=== PATIENT | female | born 1950 | race Caucasian/White ===

== ENCOUNTER 2023-10-15 11:38 | Outpatient (CLI) | payer MEDICARE, SELFPAY ==
[2023-10-15 12:07] LABS: Basophils Absolute Auto 0.1 K/mm3 (0.0-0.1); Basophils Percent Auto 0.5 % (0.2-1.2); Eosinophils Absolute Auto 0.2 K/mm3 (0-0.3); Hemoglobin 11.2 g/dL (12.0-15.0); Immature Granulocyte Absolute 0.05 K/mm3 (0.00-0.031); Immature Granulocyte Percent A 0.4 % (0-0.5); Lymphocytes Absolute Auto 1.31 K/mm3 (0.9-3.2); Lymphocytes Percent Auto 11.6 % (18.3-44.2); Mean Corpuscular HGB Conc 32.9 g/dl (32-36); Mean Corpuscular Hemoglobin 27.1 pg (26-34); Mean Corpuscular Volume 82.3 fl (80-100); Mean Platelet Volume 9.7 fl (7.4-10.4); Monocytes Percent Auto 8.7 % (2.6-8.5); Neutrophils Absolute Auto 8.6 K/mm3 (1.3-6.7); Neutrophils Percent Auto 76.8 % (45.5-73.1); Platelet Count Result 395 k/mm3 (150-375); Red Blood Count 4.13 M/mm3 (4.2-5.4); Red Cell Distribution Width 14.1 % (11.5-14.5); White Blood Count 11.3 K/mm3 (4.5-10.0)
[2023-10-15 12:20] LABS: Anisocytosis 1+ (NORMAL); Schistocytes None Seen (NORMAL)
[2023-10-15 12:21] LABS: Hypochromasia 1+ (NORMAL)
[2023-10-15 12:35] LABS: CRP 16.3 mg/dL (<1.0)
[2023-10-15 12:45] LABS: Erythrocyte Sedimentation Rate 86 mm/hr (0-20)
== END 2023-10-15 11:39 | disposition home or self-care (01) ==
LOC: ANHLAB 11:40
PROVIDERS: PCP Internal Medicine Infectious Disease; Visit Provider Physician Assistant Surgical
DX: M25.461 Effusion, right knee (principal)
CPT/HCPCS: 36415; 85025; 85652; 86140

== ENCOUNTER 2024-01-28 10:24 | Outpatient (CLI) | payer MEDICARE, SELFPAY ==
--- NOTE | ~2024-01-28 | XR_ITS ---
Right Knee Technique: AP, lateral, and sunrise views were obtained. Clinical History: Osteoarthritis Findings: No fracture or dislocation is seen. Osseous alignment is anatomic. Joint spaces are preserv ed without degenerative or erosive change. Small to moderate joint effusion is seen. Impression: [id number] joint effusion, nonspecific. Reviewed, dictated and finalized at location . Impression: [id number] joint effusion, nonspecific.
== END 2024-01-28 10:25 | disposition home or self-care (01) ==
LOC: ANHIMG 10:31
PROVIDERS: PCP Internal Medicine Infectious Disease; Visit Provider Orthopaedic Surgery
DX: M25.461 Effusion, right knee (principal); M17.11 Unilateral primary osteoarthritis, right knee
CPT/HCPCS: 73564

== ENCOUNTER 2024-01-29 11:27 | Outpatient (CLI) | payer MEDICARE, SELFPAY ==
--- NOTE | 2024-01-29 11:45 | ECG_ITS ---
SEE SCANNED COPY FOR CONFIRMED REPORT MTDD
[2024-01-29 12:50] LABS: Anion Gap 10 mmol/L (4-12); Blood Urea Nitrogen 14 mg/dL (7-17); Calcium 9.3 mg/dL (8.4-10.2); Carbon Dioxide 28 mmol/L (22-30); Chloride 89 mmol/L (98-107); Estimated Glomerular Filt Rate > 60; Glucose 149 mg/dL (65-110); Potassium 3.4 mmol/L (3.4-5.0); Sodium 127 mmol/L (137-145)
== END 2024-01-29 11:28 | disposition home or self-care (01) ==
PROVIDERS: Anesthesiology; PCP Internal Medicine Infectious Disease; Visit Provider Orthopaedic Surgery
DX: I10 Essential (primary) hypertension (principal); Z79.899 Other long term (current) drug therapy; Z01.818 Encounter for other preprocedural examination
CPT/HCPCS: 36415; 80048; 93005

== ENCOUNTER 2024-02-02 02:39 | Day surgery (SDC) | payer MEDICARE, SELFPAY ==
[2024-01-28 15:19] VITALS: BMI 30.2
--- NOTE | 2024-01-28 15:29 | PC.NURSE ---
PRE-OP INSTRUCTIONS, PLEASE READ CAREFULLY Report to the Outpatient Waiting Room, entrance under the green pavilion located off [facility], at time _1 PM_ on date _02/02/24_. Planned Procedure Time: _3 PM_. Time changes happen often and if your time is changed the preop area will call you the afternoon before. - You and your visitor will be asked to self-screen and do not enter if you have any COVID symptoms. - A mask is optional within the hospital at this time. Patients may have clear liquids (water, carbonated beverages, clear teas, apple juice) until 3 hours prior to surgery (1200 NOON) with a maximum of 20 ounces. - No food from midnight until time of surgery Take the following medications with a SIP of water the morning of surgery: _AMIODARONE, GABAPENTIN, HYDRALAZINE, LEVOTHYROXINE, METOPROLOL_ DO NOT STOP ANY OF YOUR OTHER PRESCRIPTION MEDICATIONS PRIOR TO SURGERY ?EXCEPT THE FOLLOWING Medications to discontinue - _XARELTO INSTRUCTED BY DR. KIRKLAND_ Please no make-up, nail latvian, hairspray, perfume, deodorant, or body powder the day of surgery. No jewelry (including any body piercings) or valuables the day of surgery, leave them at home. Please take a shower or bath the night before, or the morning of, surgery with an antibacterial soap. Wear comfortable, loose fitting clothing. - Jewelry must be removed prior to entering the operating room. Rings and piercings that are not removed may be cut off. - The hospital will not accept responsibility for valuables. - Please leave all valuables, including medications, at home the day of surgery. If you are going home after surgery, a licensed hyster driver must drive you home. - NO public transportation without another adult if you receive anesthesia. - We recommend that an adult stay with you for 24 hours following discharge. - We also recommend that you do not drive, make important decision, drink alcoholic beverages, or take any drugs that were not prescribed by your health care provider for at least 24 hours after your discharge time. Follow any additional instructions given to you from your surgeon. If you or anyone in your household have experienced Covid symptoms in the past week, please notify your surgeon or the nurse liaison at the phone number below for possible testing. Telephone instructions given to _PATIENT_and asked if any additional questions and then verbalized understanding. Patient advised to call surgeon office or pre surgery nurse liaison [phone] if any additional questions.
[2024-02-02 13:30] VITALS: BP 140/106; PULSE 70; RESP 16; TEMP 37.5; O2SAT 100
[2024-02-02] MEDS: LACTATED RINGERS 1,000 ML 30 ML IV CONT (13:45)
--- NOTE | 2024-02-02 14:01 | WPDANESEPPF ---
Anes - Initial Pre Proc Eval Procedure: Operation Date: 02/02/24 15:00 Proposed Procedures p Right Knee Arthroscopy with Synovectomy - El Vo MD Date/Time: 02/02/24 14:01 Surgeon: El Vo MD Pre Op Diagnosis: right knee knee hemarthrosis Patient Data Age: 73 Gender: F Height: 1.68 m Weight: 85 kg Allergies Allergy/AdvReac Type Severity Reaction Status Date / Time Sulfa (Sulfonamide Allergy Severe ITCHING, Verified 01/28/24 15:14 Antibiotics) TONGUE SWELLING docosahexaenoic acid Allergy Unknown Unknown-UNABLE Verified 01/28/24 15:14 TO RECALL fish oil Allergy Unknown Swelling Verified 01/28/24 15:14 SHELLFISH Allergy Intermediate N/V Uncoded 01/28/24 15:14 EICOSAPENTAENOIC ACID Allergy Unknown Unknown-UNABLE Uncoded 01/28/24 15:14 TO RECALL OMEGA-3 FATTY ACIDS Allergy Unknown Swelling Uncoded 01/28/24 15:14 VITAMIN E Allergy Unknown Unknown-UNABLE Uncoded 01/28/24 15:14 TO RECALL Home Medications Medication Instructions Recorded Confirmed Type ascorbate calcium (vitamin C) 500 500 mg PO DAILY 09/26/23 01/28/24 History mg tablet ezetimibe 10 mg tablet 10 mg PO DAILY 09/26/23 01/28/24 History furosemide 40 mg tablet 40 mg PO QAM 09/26/23 01/28/24 History gabapentin 100 mg capsule 100 mg PO BID 09/26/23 01/28/24 History hydralazine 100 mg tablet 100 mg PO TID 09/26/23 01/28/24 History levothyroxine 200 mcg capsule 200 mcg PO DAILY 09/26/23 01/28/24 History metoprolol succinate 25 mg 12.5 mg PO DAILY 09/26/23 01/28/24 History tablet,extended release 24 hr oxybutynin chloride 5 mg tablet 5 mg PO BID 09/26/23 01/28/24 History potassium chloride 10 mEq oral 10 meq PO DAILY 09/26/23 01/28/24 History packet rivaroxaban 20 mg tablet (Xarelto) 20 mg PO DAILY 09/26/23 01/28/24 History valsartan 320 1 tablet PO DAILY 09/26/23 01/28/24 History mg-hydrochlorothiazide 25 mg tablet amiodarone 200 mg tablet 100 mg PO DAILY 10/15/23 01/28/24 History esomeprazole magnesium 40 mg 40 mg PO BID 10/15/23 01/28/24 History capsule,delayed release cholecalciferol (vitamin D3) 25 25 mcg PO DAILY 01/28/24 01/28/24 History mcg (1,000 unit) tablet magnesium 1 tab-cap DAILY 01/28/24 01/28/24 History hydrocodone 5 mg-acetaminophen 325 1 - 2 tablet PO Q4-6H PRN pain #30 02/02/24 Rx mg tablet tabs Patient hx anesthesia problems: none Family hx anesthesia problems: none Results Review: All pre-operative results and documents have been reviewed as part of the pre-operative evaluation. [facility] Past Medical History Medical History A-fib Congestive heart disease History of stress test Hypertension Sleep apnea Surgical History Surgical History History of cholecystectomy History of hysterectomy History of thyroidectomy Family History Family History Mother Diabetes mellitus Father Heart disease Social History Social History Smoking status: Never smoker Second hand tobacco smoke exposure: No Alcohol intake: never Substance use: never Substance use type: does not use Lack of Transportation: No Lack of Food: Never True Current Housing: I Have Housing Concerned About Future Housing: No Difficulty Paying Gas/Electric Bills: No Difficulty Paying for Meds: No Currently Unemployed: No Education: High School Diploma/GED Difficulty w/ Childcare or Family Care: No Living arrangements: with family Spiritual care concerns: No Anes - Eval Final PreProcedure Day of Procedure 02/02/24 14:01 Patient weight: obese Heart: regular rate and rhythm Lungs: clear to auscultation Airway: Mallampati scale and special considerations (Upper caps. ) Neurological: alert and oriented Last oral intake
[2024-02-02] MEDS: KETOROLAC 15 MG/ML VIAL (*BKC) IV PUSH (14:07)
[2024-02-02] MEDS: ACETAMINOPHEN 500 MG TABLET 1000 MG PO (14:07)
[2024-02-02 14:15] LABS: Sodium 125 mmol/L (137-145)
--- NOTE | 2024-02-02 14:59 | WPDHPUPDATE1 ---
History and Physical Update Update Date/Time: 02/02/24 14:59 History and Physical has been reviewed, including an updated exam of the patient. There are NO changes in the patient's condition. Risks, benefits, and alternatives have been discussed and questions answered. Patient agrees to proceed with procedure.
--- NOTE | 2024-02-02 15:39 | SUR.PREOP ---
PT PREOP SODIUM LEVEL 2.5 TODAY. PAT NA LEVEL 127. PER PT'S PMD MABEL MULLINS OFFICE AT [facility], THIS IS THE LOWEST VALUE FOR PT OVER LAST YEAR THOUGH PT TENDS TO RUN SLIGHTLY BELOW NORMAL, WITH VALUES FAXED TO US OF 131 ON 10/29/23; 128 ON 10/15/23 AND 134 IN . SPOKE W/ DR. CALDERON IN PERSON AND DR. KIRKLAND VIA PHONE. SINCE PT TRENDING LOW WITHOUT ANY INTERVENTION; DECISION TO CANCEL TODAY AND HAVE PT F/U PMD FOR FURTHER EVAL/MNGMNT. DR. CALDERON SPOKE W/ PT AND HER FAMILY. GABRIELA DR. KIRKLAND PA SPOKE W/ PT AND DOING DC ORDERS. DR. KIRKLAND WILL PERFORM NEEDLE ASPIRATION IN PREOP BEFORE DC.
--- NOTE | 2024-02-02 16:08 | PM.OP ---
Procedure Note - Brief Procedure Note - Brief Date of procedure: 02/02/24 right knee knee hemarthrosis Post-op diagnosis: Same Procedure performed: Aspiration right knee in the preop holding room. Surgeon: El Vo MD Anesthesia: local (3mL 1 %Lidocaine) Findings: Surgical synovectomy cancelled due to hyponatremia, (125). Description of procedure: The wound was prepped with chlorhexidine and Betadine. 3ML local anesthetic administered. Aspiration performed through a superolateral approach. Steril gauze dressing with compressive bandage applied. 25ML sanguinous fluid obtained. Complications: No immediate complications Condition: Stable Disposition: Same day
--- NOTE | 2024-02-02 16:08 | SUR.PREOP ---
MALIK AT DR. MABEL PISANO OFFICE MADE AWARE SURGERY CANCELLED TODAY PT TO F/U FOR MANAGEMENT. PT JT ASPIRATION WELL. DC PAPERS GIVEN.
== END 2024-02-02 16:30 | disposition home or self-care (01) ==
PROVIDERS: Anesthesiology; PCP Internal Medicine Infectious Disease; Visit Provider Orthopaedic Surgery
PROC: (CPT 29870; principal; 2024-02-02 15:00)
DX: M25.061 Hemarthrosis, right knee (principal); R79.89 Other specified abnormal findings of blood chemistry; E87.1 Hypo-osmolality and hyponatremia; I48.91 Unspecified atrial fibrillation; I11.0 Hypertensive heart disease with heart failure; I50.9 Heart failure, unspecified; G47.30 Sleep apnea, unspecified; E66.9 Obesity, unspecified; Z68.29 Body mass index [BMI] 29.0-29.9, adult; Z79.01 Long term (current) use of anticoagulants; Z79.891 Long term (current) use of opiate analgesic; Z98.890 Other specified postprocedural states; Z90.49 Acquired absence of other specified parts of digestive tract; Z82.49 Family history of ischemic heart disease and other diseases of the circulatory system; Z53.09 Procedure and treatment not carried out because of other contraindication
CPT/HCPCS: 36415; 80048; 84295; 93005; 99211; A9270; G0463; J1885; J2250; J3010; J7120

== ENCOUNTER 2024-03-22 12:26 | Outpatient (CLI) | payer MEDICARE, SELFPAY ==
--- NOTE | ~2024-03-22 | MR_ITS ---
MRI of the right knee Clinical history: Osteoarthritis Technique: Coronal proton density and proton density-weighted images, sagittal proton-density and T2 fat-sat images, and axial proton-density fat-saturated images were acquired. Findings: Anterior and posterior cruciate ligaments are intact. Medial collateral ligament and the la teral collateral ligament complex are intact. Popliteus tendon is intact. There is prominent intrasubstance degenerative signal of the medial meniscus without definite tear. T here is horizontal tear probably involving the posterior horn of the lateral meniscus. There is extensive grade 4 chondral fissure patella, as well as extensive moderate to high-grade scooter dral malacia the femoral trochlea inferiorly. There is patchy mild to moderate chondral malacia of th e medial and lateral compartments. Minimal tricompartmental osteophytes are present. Extensor mechanism is intact. Small joint effusion present. Small Scott's cyst. Impression: Extensive high-grade chondral lesion of the patellofemoral compartment. Mild to moderate chondromalac ia in the medial and lateral compartments. Horizontal tear of the posterior horn of the lateral masses. Small joint effusion and small Scott's cyst. Reviewed, dictated and finalized at location . Impression: Extensive high-grade chondral lesion of the patellofemoral compartment. Mild to moderate chondromalacia in the medial and lateral compartments. Horizontal tear of the posterior horn of the lateral masses. Small joint effusion and small Scott's cyst.
== END 2024-03-22 12:27 | disposition home or self-care (01) ==
PROVIDERS: PCP Internal Medicine Infectious Disease; Visit Provider Orthopaedic Surgery
DX: M17.11 Unilateral primary osteoarthritis, right knee (principal); M25.061 Hemarthrosis, right knee; M25.461 Effusion, right knee; M94.261 Chondromalacia, right knee; M23.351 Other meniscus derangements, posterior horn of lateral meniscus, right knee; M71.21 Synovial cyst of popliteal space [Baker], right knee
CPT/HCPCS: 73721

== ENCOUNTER 2024-05-06 11:26 | Outpatient (CLI) | payer MEDICARE, SELFPAY ==
[2024-05-06 12:23] LABS: Anion Gap 8 mmol/L (4-12); Blood Urea Nitrogen 13 mg/dL (7-17); Calcium 8.4 mg/dL (8.4-10.2); Carbon Dioxide 28 mmol/L (22-30); Chloride 98 mmol/L (98-107); Estimated Glomerular Filt Rate > 60; Glucose 105 mg/dL (65-110); Potassium 4.3 mmol/L (3.4-5.0); Sodium 134 mmol/L (137-145)
== END 2024-05-06 11:27 | disposition home or self-care (01) ==
LOC: ANHSURGERY 11:31
PROVIDERS: Anesthesiology; PCP Internal Medicine Infectious Disease; Visit Provider Orthopaedic Surgery
DX: Z01.818 Encounter for other preprocedural examination (principal); Z79.899 Other long term (current) drug therapy
CPT/HCPCS: 36415; 80048

== ENCOUNTER 2024-05-10 00:38 | Day surgery (SDC) | payer MEDICARE, SELFPAY ==
[2024-05-04 13:18] VITALS: BMI 29.9
--- NOTE | 2024-05-04 13:19 | PC.NURSE ---
Report to the Outpatient Waiting Room, entrance under the green pavilion located off [facility], at time _1pm_ on date _[id number]_. Planned Procedure Time: _3pm_. Time changes happen often and if your time is changed the preop area will call you the afternoon before. - You and your visitor will be asked to self-screen and do not enter if you have any COVID symptoms. - A mask is optional within the hospital at this time. Patients may have clear liquids (water, carbonated beverages, clear teas, apple juice) until 3 hours prior to surgery with a maximum of 20 ounces. - No food from midnight until time of surgery Take the following medications with a SIP of water the morning of surgery: __Amiodarone, Hydralazine, Levothyroxine and Metoprolol DO NOT STOP ANY OF YOUR OTHER PRESCRIPTION MEDICATIONS PRIOR TO SURGERY ?EXCEPT THE FOLLOWING Medications to discontinue per physician Vitamin d and Magnesium Date to take last jpma____[id number] Stop Xarelto 05-07-[address] Tena Please no make-up, nail kazakh, hairspray, perfume, deodorant, or body powder the day of surgery. No jewelry (including any body piercings) or valuables the day of surgery, leave them at home. Please take a shower or bath the night before, or the morning of, surgery with an antibacterial soap. Wear comfortable, loose fitting clothing. - Jewelry must be removed prior to entering the operating room. Rings and piercings that are not removed may be cut off. - The hospital will not accept responsibility for valuables. - Please leave all valuables, including medications, at home the day of surgery. If you are going home after surgery, a licensed guard driver must drive you home. - NO public transportation without another adult if you receive anesthesia. - We recommend that an adult stay with you for 24 hours following discharge. - We also recommend that you do not drive, make important decision, drink alcoholic beverages, or take any drugs that were not prescribed by your health care provider for at least 24 hours after your discharge time. Follow any additional instructions given to you from your surgeon. If you or anyone in your household have experienced Covid symptoms in the past week, please notify your surgeon or the nurse liaison at the phone number below for possible testing. Telephone instructions given to ___Joy__and asked if any additional questions and then verbalized understanding. Patient advised to call surgeon office or pre surgery nurse liaison [phone] if any additional questions.
[2024-05-10] VITALS (8 sets, daily range): BP systolic 139–149; BP diastolic 58–94; PULSE 53–81; RESP 12–18; TEMP 36.4–36.7; O2SAT 97–100; BMI 30.2
[2024-05-10] MEDS: LACTATED RINGERS 1,000 ML 30 ML IV CONT (13:43)
[2024-05-10] MEDS: ACETAMINOPHEN 500 MG TABLET 1000 MG PO (13:55)
[2024-05-10] MEDS: KETOROLAC 15 MG/ML VIAL (*BKC) IV PUSH (13:55)
--- NOTE | 2024-05-10 14:46 | PM.IMHP ---
H&P: HPI History of Present Illness Date/Time: 05/10/24 14:46 Chief Complaint: Right knee pain Details: Persistent knee pain lateral and posterior medial. Original complaint: 73-year-old female with persistent right knee pain. Recurrent hemarthrosis and swelling. She has pain in the back of the knee and on the lateral aspect of the knee. She was scheduled for surgery but this was canceled due to low sodium. She is on Xarelto 20 mg daily. 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 Her sodium levels have been stable. Treatments: Medications: Tylenol with some benefit. Injections: Yes. Over 5 years ago. PT: No Previous surgeries on knee: No PMH: CHF, Is on blood thinners, HTN, A.fib. Exam: Alert and oriented x3. Overweight 73 y/o female. Mild valgus deformity on the right knee. Tender at the lateral joint line. Pain with hyperflexion. Equivocal Yuliana's test. No distal edema. No ecchymosis. Large joint effusion. Mild warmth. No erythema. Diffuse tenderness. Range of motion 0? to 120?. Pain with motion. Distal pulses palpable. Normal light touch sensation. No skin lesions. Left knee mild varus deformity. Exquisite tenderness at the medial joint line. Diagnostics: Recent x-rays reviewed show moderate patellofemoral arthritis. Mild lateral changes. MRI 03/22/24 shows tearing of the lateral meniscus. Signal change in the notch may be displaced meniscal fragments. The medial meniscus has significant degenerative signal. She has [id number] chondromalacia in the medial and lateral compartments although the joint space is well preserved. More significant grade 4 disease at the patellofemoral joint. Impression Recurrent heme arthrosis and pain in the right knee. Significant mechanical symptoms. The MRI shows a lateral meniscus tear which may be the primary cause of her symptoms. We had a ronald discussion about treatment options. Knee replacement carries more risk and her medial and lateral compartments are fairly well preserved. We discussed operative and non-operative options in detail. We reviewed the expected results and typical recovery after surgery. Proceed with arthroscopic partial lateral meniscectomy. The patient understands the limitations given the degenerative changes in the knee. Risks, benefits, and alternatives discussed. [facility] Past Medical History Medical History A-fib Congestive heart disease History of stress test Hypertension Sleep apnea Surgical History Surgical History History of cholecystectomy History of hysterectomy History of thyroidectomy Family History Family History Mother Diabetes mellitus Father Heart disease Social History Social History Smoking status: Never smoker Second hand tobacco smoke exposure: No Alcohol intake: current Substance use: never Substance use type: does not use Lack of Transportation: No Lack of Food: Never True Current Housing: I Have Housing Concerned About Future Housing: No Difficulty Paying Gas/Electric Bills: No Difficulty Paying for Meds: No Currently Unemployed: No Education: High School Diploma/GED Difficulty w/ Childcare or Family Care: No Living arrangements: with family Spiritual care concerns: No Meds Home Medications and Allergies Home Medications Medication Instructions Recorded Confirmed Type ezetimibe 10 mg tablet 10 mg PO DAILY 09/26/23 05/04/24 History furosemide 40 mg tablet 40 mg PO QAM 09/26/23 05/04/24 History gabapentin 100 mg capsule 100 mg PO BID 09/26/23 05/04/24 History hydralazine 100 mg tablet 100 mg PO TID 09/26/23 05/10/24 History levothyroxine 200 mcg capsule 200 mcg PO DAILY 09/26/23 05/10/24 History metoprolol succinate 25 mg 12.5 mg PO
--- NOTE | 2024-05-10 14:47 | WPDANESEPPF ---
Anes - Initial Pre Proc Eval Procedure: Operation Date: 05/10/24 15:00 Proposed Procedures p Right Knee Arthroscopic Partial Lateral Meniscectomy - El Vo MD Date/Time: 05/10/24 14:47 Surgeon: El Vo MD Pre Op Diagnosis: lateral meniscus tear right knee Patient Data Age: 73 Gender: F Height: 1.68 m Weight: 85.15 kg Last Vital Signs Temp 36.4 C 05/10/24 13:10 Pulse 81 05/10/24 13:10 Resp 16 05/10/24 13:10 BP 146/69 H 05/10/24 13:10 Pulse Ox 99 05/10/24 13:10 O2 Del Method Room Air 05/10/24 13:10 Allergies Allergy/AdvReac Type Severity Reaction Status Date / Time Sulfa (Sulfonamide Allergy Severe ITCHING, Verified 05/10/24 14:00 Antibiotics) TONGUE SWELLING SHELLFISH Allergy Intermediate N/V Uncoded 05/10/24 14:19 OMEGA-3 FATTY ACIDS Allergy Unknown Swelling Uncoded 05/10/24 14:19 Home Medications Medication Instructions Recorded Confirmed Type ezetimibe 10 mg tablet 10 mg PO DAILY 09/26/23 05/04/24 History furosemide 40 mg tablet 40 mg PO QAM 09/26/23 05/04/24 History gabapentin 100 mg capsule 100 mg PO BID 09/26/23 05/04/24 History hydralazine 100 mg tablet 100 mg PO TID 09/26/23 05/10/24 History levothyroxine 200 mcg capsule 200 mcg PO DAILY 09/26/23 05/10/24 History metoprolol succinate 25 mg 12.5 mg PO DAILY 09/26/23 05/10/24 History tablet,extended release 24 hr oxybutynin chloride 5 mg tablet 5 mg PO BID 09/26/23 05/04/24 History rivaroxaban 20 mg tablet (Xarelto) 20 mg PO DAILY 09/26/23 05/10/24 History esomeprazole magnesium 40 mg 40 mg PO BID 10/15/23 05/04/24 History capsule,delayed release cholecalciferol (vitamin D3) 25 25 mcg PO DAILY 01/28/24 05/10/24 History mcg (1,000 unit) tablet magnesium 1 tab-cap PO DAILY 01/28/24 05/04/24 History amiodarone 200 mg tablet 200 mg PO BID 04/07/24 05/10/24 History potassium chloride 20 mEq 20 meq PO DAILY 05/04/24 05/04/24 History tablet,extended release valsartan 320 mg tablet 320 mg PO DAILY 05/04/24 05/04/24 History Patient hx anesthesia problems: none Family hx anesthesia problems: none Results Review: All pre-operative results and documents have been reviewed as part of the pre-operative evaluation. PMFSH Past Medical History Medical History A-fib Congestive heart disease History of stress test Hypertension Sleep apnea Surgical History Surgical History History of cholecystectomy History of hysterectomy History of thyroidectomy Family History Family History Mother Diabetes mellitus Father Heart disease Social History Social History Smoking status: Never smoker Second hand tobacco smoke exposure: No Alcohol intake: current Substance use: never Substance use type: does not use Lack of Transportation: No Lack of Food: Never True Current Housing: I Have Housing Concerned About Future Housing: No Difficulty Paying Gas/Electric Bills: No Difficulty Paying for Meds: No Currently Unemployed: No Education: High School Diploma/GED Difficulty w/ Childcare or Family Care: No Living arrangements: with family Spiritual care concerns: No Anes - Eval Final PreProcedure Day of Procedure 05/10/24 14:47 Patient weight: obese Heart: regular rate and rhythm Lungs: clear to auscultation Airway: Mallampati scale class II Neurological: alert and oriented Last oral intake: >/= 8 hours ASA classification: III Emergent: no Anesthetic plan: proceed Anesthesia type and monitoring: general LMA and standard monitoring Results Review: All pre-operative results and documents have been reviewed as part of the pre-operative evaluation. Informed Consent: The patient's anesthetic plan and its attendant risks and benefits were discu
--- NOTE | 2024-05-10 14:48 | WPDHPUPDATE1 ---
History and Physical Update Update Date/Time: 05/10/24 14:48 History and Physical has been reviewed, including an updated exam of the patient. There are NO changes in the patient's condition. Risks, benefits, and alternatives have been discussed and questions answered. Patient agrees to proceed with procedure.
[2024-05-10] MEDS: BUPIVACAINE/EPINEPHRINE 0.5% 10 ML VIAL 20 ML INFILTRATE (15:11)
[2024-05-10] MEDS: ceFAZolin 2 GM/D5W 50 ML 2 GM/50 ML BAG IVPB (15:23)
--- NOTE | 2024-05-10 16:19 | P.OP_ITS ---
Procedure Note - Detailed Date of Procedure 05/10/24 Pre-op Diagnosis 1. Lateral meniscus tear right knee 2. Recurrent hemarthrosis Post-op Diagnosis Same Procedure Performed Arthroscopic partial lateral meniscectomy, right knee. Surgeon El Vo MD Anesthesia General Indications Symptomatic meniscus tear. Recurrent hemarthrosis previously. Findings Significant posterior horn meniscus tear with a horizontal cleavage component. This extended into the more lateral central aspect. Debrided to a stable rim. Medial meniscus showed only mild degeneration without a distinct tear. There was however significant chondromalacia along the medial femoral condyle as well as the lateral femoral condyle. These areas of grade 3 chondromalacia were treated with chondroplasty. Additionally some of fat pad around the patella was debrided due to the history of recurrent hemarthrosis and a moderate proliferative synovitis in this area. Also most notable in anterior medial joint space. There was some hemosiderin staining in the knee. The radiofrequen cy probe was used to cauterize all suspicious areas of synovitis in the superior pouch as well as around the patella, the intercondylar notch, and in the anterior fat pad area. There was no significant bleeding at the conclusion of the procedure. Description of Procedure The patient was identified and the surgical site confirmed and signed in the preoperative holding area. Antibiotics were started per protocol, and the patient was brought to the operative room and transferred to the OR table. A general anesthetic was administered. Supine position with the operative lower extremity position in the leg fiore after placement of a well padded tourniquet. The leg support was lowered and the contralateral limb was supported with a soft bolster. The knee was prepped and draped in the usual sterile fashion. A time-out was performed. The portal sites were marked and infiltrated with 0.5% Marcaine 20 mL. The limb was exsanguinated and the tourniquet inflated to 300 mL Hg. Standard inferolateral and inferomedial portals were established. Inflow was obtained with the saline pump. The camera was introduced. Diagnostic inspection of the joint was accomplished. The meniscus was debrided with the arthroscopic shaver and punches until stable. The tourniquet was released. The radiofrequency probe was used for further d?bridement, and cauterization of areas of synovitis. Gentle chondroplasty was performed on the medial and lateral femoral condyles. The arthroscopic instruments were removed. The tourniquet released and wounds closed with subcutaneous 4-0 Monocryl absorbable suture. Steri strips and a sterile dressing were applied. A light elastic wrap was placed. The patient was extubated and brought to the recovery room in stable condition. Estimated Blood Loss 5 Drains No Complications No immediate complications Condition Stable Disposition [facility] [place] [facility] - Charge Forward: Surgery Billing
[2024-05-10] MEDS: oxyCODONE HCL (*CRX) 5 MG TAB IR PO (17:35)
== END 2024-05-10 18:15 | disposition home or self-care (01) ==
PROVIDERS: PCP Internal Medicine Infectious Disease; Visit Provider Orthopaedic Surgery
PROC: (CPT 29870; principal; 2024-05-10 15:00)
DX: M23.351 Other meniscus derangements, posterior horn of lateral meniscus, right knee (principal); M25.061 Hemarthrosis, right knee; M22.41 Chondromalacia patellae, right knee; M65.861 Other synovitis and tenosynovitis, right lower leg; I48.91 Unspecified atrial fibrillation; I11.0 Hypertensive heart disease with heart failure; I50.9 Heart failure, unspecified; G47.30 Sleep apnea, unspecified; E66.9 Obesity, unspecified; Z68.30 Body mass index [BMI] 30.0-30.9, adult; Z79.01 Long term (current) use of anticoagulants
CPT/HCPCS: 29881; 36415; 80048; A9270; J0690; J1100; J1596; J1885; J2371; J2405; J2704; J3010; J7120

== ENCOUNTER 2024-09-22 13:10 | Outpatient (CLI) | payer MEDICARE, SELFPAY ==
--- NOTE | ~2024-09-22 | XR_ITS ---
XR shoulder LT min 2V Ordering provider: El Vo MD History: . S42.292A - Other displaced fracture of upper end of left ... . Comparison: September 26, 2023 FINDINGS: BONES: No acute fracture or dislocation. Healing fracture in the left proximal humerus is noted. JOINT SPACES: The acromioclavicular joint is normal. The glenohumeral joint is normal. SOFT TISSUES: Normal. IMPRESSION: Healing fracture in the left proximal humerus with no change in alignment. Reviewed, dictated and finalized at location A. HALMIC TECH
== END 2024-09-22 13:11 | disposition home or self-care (01) ==
PROVIDERS: PCP Internal Medicine Infectious Disease; Visit Provider Orthopaedic Surgery
DX: S42.292D Other displaced fracture of upper end of left humerus, subsequent encounter for fracture with routine healing (principal); X58.XXXD Exposure to other specified factors, subsequent encounter
CPT/HCPCS: 73030

== ENCOUNTER 2024-11-15 14:29 | Outpatient (CLI) | payer MEDICARE, SELFPAY ==
[2024-11-15 14:47] LABS: Hematocrit 36.8 % (37.0-47.0); Hemoglobin 12.4 g/dL (12.0-15.0)
--- NOTE | 2024-11-15 14:48 | ECG_ITS ---
Test Date: 2024-11-15 14:58:22 Measurements Intervals [place] Rate: 54 P: 63 [place]: 199 QRS: 3 QRSD: 109 T: 39 QT: 467 QTc: 443 Interpretive Statements SINUS BRADYCARDIA INCOMPLETE RIGHT BUNDLE BRANCH BLOCK [90+ ms QRS DURATION, TERMINAL R IN V1/V2, 40+ ms S IN I/aVL/V4/V5/V6] No previous ECG available for comparison Electronically Signed On 11-15-2024 21:12:03 [employer] by Chalo Vyas M.D.
[2024-11-15 15:08] LABS: Albumin Level 4.4 g/dL (3.5-5.1); Estimated Glomerular Filt Rate > 60
== END 2024-11-15 14:30 | disposition home or self-care (01) ==
PROVIDERS: PCP Internal Medicine Infectious Disease; Visit Provider Orthopaedic Surgery
DX: R00.1 Bradycardia, unspecified (principal); I45.19 Other right bundle-branch block; S42.92XP Fracture of left shoulder girdle, part unspecified, subsequent encounter for fracture with malunion; X58.XXXD Exposure to other specified factors, subsequent encounter
CPT/HCPCS: 36415; 82040; 82565; 85014; 85018; 93005

== ENCOUNTER 2024-12-30 12:46 | Outpatient (CLI) | payer MEDICARE, SELFPAY ==
--- NOTE | ~2024-12-30 | CT_ITS ---
EXAMINATION: CT shoulder LT wo con DATE: 12/30/2024 13:10 INDICATION: Left shoulder osteoarthritis. Preoperative planning. TECHNIQUE: Computed tomography (CT) of the left shoulder was performed without intravenous contrast. Automated exposure control and iterative reconstruction technique were employed. The dose-length prod uct was 128.04 mGy-cm. COMPARISON: Left shoulder radiographs 09/22/2024 FINDINGS: Calcified left hilar and mediastinal lymph nodes are consistent with old granulomatous dise ase. Bone alignment is normal. No acute fracture. There is an old healed fracture of proximal left hu merus with malunion. There is moderate osteoarthritis of glenohumeral joint and severe osteoarthritis of acromioclavicular joint. IMPRESSION: 1. Polyarticular osteoarthritis. Reviewed, dictated and finalized at location B.
--- OUTSIDE RECORDS SUMMARY | 2024-12-30 14:18 | XMS_ITS | Encounter Summary ---
Author Organization [facility] Healthcare Address [address] [place] [address] Care Team Providers Care Councilman Name Role Phone Jh Tena MD Unavailable [phone] Carmen Hurst MD Unavailable Reji Clarke DO Unavailable [phone] Nathan Cross MD Primary Care Provider Vaughn Melendez MD Unavailable [phone] Frederick Burton DMD Unavailable [phone] Doris Brenner DO Unavailable [phone] Obdulio Kumar MD Unavailable Catracho Fernandez MD Unavailable [phone] El Vo MD Unavailable [phone] Pati Yang NP Unavailable [phone] Encounter Details Date Type Department Care Team (Late st Contact Info) Description 05/06/[address] [facility] [address] [place] [address] Scanning, Provider Social History Tobacco Use Types Packs/Day Years Used Date Smoking Tobacco: Never Smokeless Tobacco: Never Alcohol Use Standard Drinks/Week Comments No 0 (1 standard drink = 0.6 oz pur e alcohol) AUDIT-C Answer Date Recorded Q1: How often do you have a drink containing alc ohol? Monthly or less 04/03/2023 Q2: How many drinks containi ng alcohol do you have on a typical day when you are drinking? 1 or 2 04/03/2023 Q3: How often do you have si x or more drinks on one occasion? Never 04/03/2023 PHQ-2 Answer Date Recorded PHQ-2 Total Score (If total score is 3 or more points, staff should administer the PHQ-9) 0 08/26/2022 Personal Safety Answer Date Recorded Have you ever been in or are you currently in a harmful physical or emotional relationship or is someone making you feel afraid or unsafe? 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 Not on file Not on file documented as of this encounter Plan of Treatment Not on file documented as of this encounter Procedures Procedure Name Priority Date/Time Associated Diagnosis Comments SCAN - LABS 05/06/2024 documented in this encounter Results * SCAN - LABS (05/06/2024) Provider Scanning Final Result documented in this encounter Visit Diagnoses Not on filedocumented in this encounter Care Teams Councilman Relationship Specialty Start Date End Date Nathan Cross MD [address] [place] [address] PCP - General Infectious Diseases 02/17/20 Jh Tena MD Consulting Physician Cardiology 01/08/18 Carmen Hurst MD Consulting Physician Neurology 01/08/18 Reji Clarke DO [address] [place] [address] Referring Physician Orthopedic Surgery 08/17/19 Vaughn Melendez MD [address] [place] [address] Consulting Physician Gastroenterology 08/03/20 Frederick Burton, ALFRED [address] [place] [address] Dentist Dental Circus Rider 04/12/21 Doris Brenner DO [address] [facility] [address] [facility] [address] [place] [address] Consulting Physician Otolaryngology 12/28/21 Obdulio Kumar MD [address] [place] [address] [address] [place] [address] Consulting Physician Gastroenterology 04/03/23 [place] [id number] [address] Consulting Physician Orthopedic Surgery 04/24/23 El Vo MD [address] [address] Referring Physician Orthopedic Surgery 10/15/23 Pati Yang NP [address] [address] Nurse Practitioner Cardiology 03/31/24 documented as of this encounter
--- OUTSIDE RECORDS SUMMARY | 2024-12-30 14:18 | XMS_ITS | Encounter Summary ---
Author Organization [facility] Healthcare Address [address] [place] [address] Care Team Providers Care Outside Plant Technician Name Role Phone Jh Tena MD Unavailable [phone] Carmen Hurst MD Unavailable Reji Clarke DO Unavailable [phone] Nathan Cross MD Primary Care Provider [phone] Vaughn Melendez MD Unavailable [phone] Frederick Burton DMD Unavailable [phone] Doris Brenner DO Unavailable [phone] Obdulio Kumar MD Unavailable Catracho Fernandez MD Unavailable [phone] El Vo MD Unavailable [phone] Pati Yang NP Unavailable [phone] Encounter Details Date Type Department Care Team (Late st Contact Info) Description 12/22/2024 Results Follow-Up [facility] [address] [place] [id number] Nathan Cross MD [address] [place] [address] Social History Tobacco Use Types Packs/Day Years [...] making you feel afraid or unsafe? 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 Not on file Not on file documented as of this encounter Plan of Treatment Not on file documented as of this encounter Visit Diagnoses Not on filedocumented in this encounter Care Teams Outside Plant Technician Relationship Specialty Start Date End Date Nathan Cross MD [address] [place] [address] PCP - General Infectious Diseases 02/17/20 Jh Tena MD Consulting Physician Cardiology 01/08/18 Carmen Hurst MD Consulting Physician Neurology 01/08/18 Reji Clarke DO [address] [place] [address] Referring Physician Orthopedic Surgery 08/17/19 Vaughn Melendez MD [address] [place] [address] Consulting Physician Gastroenterology 08/03/20 Frederick Burton, ALFRED [address] [place] [address] Dentist Dental Dump Truck Driver 04/12/21 Doris Brenner DO [address] [facility] [address] [address] Consulting Physician Otolaryngology 12/28/21 Obdulio Kumar MD [address] [facility] [address] [place] [address] Consulting Physician Gastroenterology 04/03/23 [place] [address] [address] Consulting Physician Orthopedic Surgery 04/24/23 El Vo MD [address] [address] Referring Physician Orthopedic Surgery 10/15/23 Pati Yang NP [address] [address] Nurse Practitioner Cardiology 03/31/24 documented as of this encounter
--- OUTSIDE RECORDS SUMMARY | 2024-12-30 14:18 | XMS_ITS | Clinical Summary ---
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 09/27/2022 SHAQ Banegas Active Last Documented On 2 10:05AM ; [facility] Joint Pain in the Right Knee on the Inner Side 06/14/2022 SHAQ Banegas Active Last Documented On 2 1:24PM ; [facility] Anemia 04/16/2015 MAY BRUNO RN JN Active Last Documented On 5 1:16PM ; [facility] Colonic Diverticulosis 04/16/2015 MAY BRUNO RN JN Active Last Documented On 5 1:15PM ; [facility] History of Prior Surgery: Stent 04/12/2014 LEAH BRUNO RN JN Active Last Documented On 4 8:44AM ; [facility] Note: Unchanged History of Hysterectomy 04/05/2013 MAY Landeros RN JN Active Last Documented On 3 1:24PM ; [facility] Note: Unchanged URGE INCONTINENCE 03/07/2011 CHRISSIE ROSADO M.D. Active Last Documented On 1 10:51AM ; [facility] Breast Fibroadenosis Chronic 01/25/2010 MAY BRUNO RN WHN P BC Active Last Documented On 04/13/2015 8:29AM ; [facility] Note: pt s/p removal and all mammogram p erformed by Dr. Clifford at [facility] CYST OF THYROID 01/25/2010 CHRISSIE RODRIGUEZ M.D. Active Last Documented On 01/25/2010 1:41PM ; [facility] Note: pt to see ent and roll up operator Esophageal Reflux 01/15/2010 DARSHANA TORRES MD Active Last Documented On 0 10:38PM ; [facility] Hyperlipidemia 02/09/2009 DARSHANA TORRES MD Active Last Documented On 0 10:38PM ; [facility] Essential Hypertension Benign 02/09/2009 DARSHANA TORRES MD Active Last Documented On 0 10:38PM ; [facility] Plan of Treatment Pending Tests Order Diagnosis Results Due Ordering P rovider Pain Management CPT - PM Referrals Pain Management Pain in left leg 01/22/23 SHAQ Banegas Last Documented On 3 4:08PM ; [facility] Assessments Includes: Assessments from this encounter No Assessments Recorded Medical Equipment - Implanted Devices Includes: Current Devices No Medical Equipment Recorded Medications Includes: Medications discussed during this encounter and other current Medications Current Medications (continue as prescribed) predniSONE 10 MG Oral Tablet 06/14/2022 Provider: SHAQ Banegas Diagnosis: as directed TAPER FOLLOWS , TAKE 4 TABS FOR 4 DAYS, 3 TABS FOR 3 DAYS, 2 TABS FOR 2 DAYS AND ONE TAB FOR ONE DAY Last Documented On 06/14/2022 1:28PM By Ira ALVA ; [facility] hydrALAZINE HCl 100 MG Oral Tablet 06/14/2022 Provid er: Diagnosis: Last Documented On 06/14/2022 1:15PM By MARCY BHAT LPN ; [facility] Gabapentin 100 MG Oral Capsule 06/14/2022 Provider: Diagnosis: Last Documented On 06/14/2022 1:15PM By MARCY BHAT LPN ; [facility] Valsartan-hydroCHLOROthiazide 320-25 MG Oral Tablet Provider: Diagnosis: Last Documented On 06/14/2022 1:12PM By MARCY BHAT LPN ; [facility] NexIUM 40 MG Oral Capsule Delayed Release 06/14/2022 Provider: Diagnosis: Last Documented On 06/14/2022 1:12PM By MARCY BHAT LPN ; [facility] Furosemide 40 MG Oral Tablet 06/14/2022 Provider: Diagnosis: Last Documented On 06/14/2022 1:11PM By MARCY BHAT LPN ; [facility] Amiodarone HCl 200 MG Oral Tablet 06/14/2022 Provide r: Diagnosis: Last Documented On 06/14/2022 1:10PM By MARCY BHAT LPN ; [facility] Xarelto 20 MG Oral Tablet 06/14/2022 Provider: Diagnosis: Last Documented On 06/14/2022 1:10PM By MARCY BHAT LPN ; [facility] Calcium 600 MG Tablet 05/02/2016 Provider: Diagnosis: Last Documented On 05/02/2016 2:58PM By CLAUDIA REYES MA ; [facility] Multi Vitamin Daily Tablet 05/02/2016 Provider: Diagnosis: Last Documented On 05/02/2016 2:58PM By CLAUDIA REYES MA ; [facility] Irbesartan 300 MG Tablet 05/02/2016 Provider: Diagnosis: Last Documented On 05/02/2016 2:58PM By CLAUDIA REYES MA ; [facility] Metoprolol Succinate ER 25 MG Tablet Extended Re lease 24 Hour 05/02/2016 Provider: Diagnosis: Last Documented On 05/02/2016 2:57PM By CLAUDIA REYES MA ; [facility] Levothyroxine Sodium 175 MCG Tablet 05/02/2016 Provi blu: Diagnosis: Last Documented On 05/02/2016 2:57PM By CLAUDIA REYES MA ; [facility] oxyBUTYnin Chloride 5 MG OR TABS 04/12/2014 Provider : Diagnosis: Last Documented On 04/12/2014 8:27AM By AIRAM SARAVIA ; [facility] Livalo 1 MG OR TABS 04/12/2014 Provider: Diagnosis: Last Documented On 04/12/2014 8:27AM By AIRAM SARAVIA ; [facility] Medications Administered Includes: Administered Medications from this encounter No Administered Medications Recorded Results Includes: Results discussed during this encounter No Results Recorded For Specified Dates History of Present Illness Includes: History of Present Illness from this encounter No History of Present Illness Recorded Social History No Social History Recorded - Smoking Status Unknown Medical History Includes: Medical History addressed during this encounter No Medical History Recorded Family History Includes: Family History addressed during this encounter No Family History Recorded Review of Systems Includes: Review of Systems from this encounter No Review of Systems Recorded Mental Status Includes: Mental Status from this encounter No Mental Status Recorded Functional Status Includes: Functional Status from this encounter No Functional Status Recorded Physical Exam Includes: Physical Exam from this encounter No Physical Exam Recorded Allergies Includes: Active Allergies Substance Type Reaction Onset Date Resolved Date Statu s Sulfa Antibiotics Allergy 02/09/2009 A ctive Last Documented On 3 3:29PM ; [facility] Fish Oil Allergy THROAT, MOUTH AND EARS ITCH 04/12/2014 Active Last Documented On 3 3:29PM ; [facility] CeleBREX Allergy 02/09/2009 Active Last Documented On 3 3:29PM ; [facility] Encounters Encounter Provider Location Date Check-In Time Check-Out Time Diagnosis * PHONE CALL SHAQ Banegas [facility] 3 12:42PM 11:59PM Insurance Includes: Active Insurance Policies Plan Name Member ID Group # Subscriber Relationship Effect grant Dates 1 - [facility]/MEDICARE ADV/[employer] [id number] MONAE lieberman Clinical Notes Includes: Clinical Notes from this encounter No Clinical Notes Recorded
--- OUTSIDE RECORDS SUMMARY | 2024-12-30 14:18 | XMS_ITS | Encounter Summary ---
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 Name Role Phone Jh Tena MD Unavailable [phone] Carmen Hurst MD Unavailable Reji Clarke DO Unavailable [phone] Nathan Cross MD Primary Care Provider Vaughn Melendez MD Unavailable [phone] Frederick Burton DMD Unavailable [phone] Doris Brenner DO Unavailable [phone] Obdulio Kumar MD Unavailable Catracho Fernandez MD Unavailable [phone] El Vo MD Unavailable [phone] Pati Yang NP Unavailable [phone] Reason for Referral * Diagnostic Imaging (Routine) - Authorized Specialty Diagnoses / Procedures Referred By Contac t Referred To Contact Diagnoses Breast cancer screening by mammogram Procedures Screening Mammogram Bilateral W Nathan Galaviz MD [address] [place] [address] Phone: tel: fax: [address] [phone] Referral ID Status Reason Start Date Expiration Date V isits Requested Visits Authorized [id number] Authorized 12/29/2024 01/28/2026 1 1 Reason for Visit * Reason Comments Annual Exam Encounter Details Date Type Department Care Team (Late st Contact Info) Description 12/29/2024 11:30 AM CDT Office Visit [facility] [address] [place] [address] Nathan Cross MD [address] [place] [address] Medicare annual wellness visit, subsequent (Primary Dx); Essential hypertension; Mixed hyperlipidemia; Paroxysmal atrial fibrillation (HCC); Hypertensive heart disease with chronic diastolic congestive heart failure (HCC); Class 1 obesity due to excess calories with serious comorbidity and body mass index (BMI) of 30.0 to 30.9 in adult; Excoriation of right ear canal, initial encounter; Hyponatremia; Breast cancer screening by mammogram Social History Tobacco Use Types Packs/Day Years Used Date Smoking Tobacco: Never Smokeless Tobacco: Never Tobacco Cessation:Counseling Given: Not Answered Alcohol Use Standard Drinks/Week Comments No 0 [...] points, staff should administer the PHQ-9) 0 12/29/2024 Personal Safety Answer Date Recorded Have you ever been in or are you currently in a harmful physical or emotional relationship or is someone making you feel afraid or unsafe? 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 Not on file Not on file documented as of this encounter Last Filed Vital Signs Vital Sign Reading Time Taken Comments Blood Pressure 166/64 12/29/2024 12:03 PM CDT Pulse 85 12/29/2024 11:32 AM CDT Temperature 36.3 C (97.3 F) 12/29/2024 11:32 AM CDT Respiratory Rate 16 12/29/2024 11:32 AM CDT Oxygen Saturation 97% 12/29/2024 11:32 AM CDT Inhaled Oxygen Concentration - - Weight 82.4 kg (181 lb 9.6 oz) 12/29/2024 11:32 AM CDT Height 167.6 cm (5' 5.98 ) 12/29/2024 11:32 AM C DT Body Mass Index 29.33 12/29/2024 11:32 AM CDT documented in this encounter Patient Instructions * Patient Instructions* Nathan Cross MD - 12/29/2024 11:30 AM CDT Keep preventive care up to date. Recommendations can be reviewed at the [place] Preventive Services Task Force (USPSTF) web site, an independent, volunteer panel of national experts in disease prevention and evidence-based medicine. https://www.uspreventiveservicestaskforce.org/uspstf/, or down load the smart phone jose a. The following recommendations currently apply to you: Consider getting the latest Covid vaccine/booster after reviewing current recommendations. If you get Covid and call within 5 days of symptom onset, we can prescribe medication to reduce the risk of severe disease. Tetanus update (TDAP) recommended unless received in the past 10 years. Mammogram is due towards end of December. Continue current medications. front desk auxiliary will order labs to be done before next visit in 6 months (lipids, CMP, TSH with reflex T4, CBC). Use Debrox in right ear for 2 weeks and return to office for reevaluation of the macule at right external auditory meatus. Continue efforts to stay active and eat right. Follow up in 6 months, or sooner if needed. documented in this encounter Ordered Prescriptions Prescription Sig Dispense Quantity Refills Last Filled Start Date End Date furosemide (LASIX) 40 mg tabletIndications: Hypertensive heart disease with chronic diastolic congestive heart failure (HCC) Take 0.5 tablets (20 mg total) by mouth daily 12/24/2024 documented in this encounter Progress Notes * Nathan Cross MD - 12/29/2024 11:30 AM CDT This patient has verbally consented to recording this visit in order to utilize AI technology in generating this note. Brigida Ordaz presents for annual Medicare wellness visit and for review of medical problems as described. All the elements of the plan were completed as outlined by CMS. A copy of the prevention planwas given to the patient. I reviewed Medicare Wellness Questionnaire (other physicians involved in care, depression screen, advanced directives), cognitive/memory, and functional assessment. I reviewed and updated the complete problem list, medication list, family history, and immunization records with the patient. I provided preventive counseling and early detection interventions to the patient through health maintenance update and summary of today's office visit. Patient Instructions Keep preventive care up to date. Recommendations can be reviewed at the [place] Preventive Services Task Force (USPSTF) web site, an independent, volunteer panel of national experts in disease prevention and evidence-based medicine. https://www.uspreventiveservicestaskforce.org/uspstf/, or down load the smart phone jose a. The following recommendations currently apply to you: Consider getting the latest Covid vaccine/booster after reviewing current recommendations. If you get Covid and call within 5 days of symptom onset, we can prescribe medication to reduce the risk of severe disease. Tetanus update (TDAP) recommended unless received in the past 10 years. Mammogram is due towards end of December. Continue current medications. front desk auxiliary will order labs to be done before next visit in 6 months (lipids, CMP, TSH with reflex T4, CBC). Use Debrox in right ear for 2 weeks and return to office for reevaluation of the macule at right external auditory meatus. Continue efforts to stay active and eat right. Follow up in 6 months, or sooner if needed. Medicare Health Risk Assessment Basic Information In general, would you say your health is: Good Do you have an advance directive, such as a living will or durable power of immigration attorney?: (!) No, not interested at this time. Would you like information regarding Advanced Directive (Living Will) and/or Durable Power of Western Philosophy Professor?: No Do you have to strain or struggle to hear/understand conversations?: No Over the last 2 weeks, how often have you been bothered by any of the following problems? Little Interest or Pleasure in Doing Things: Not at all Feeling Down, Depressed, or Hopeless: Not at all PHQ-2 Total Score (If total score is 3 or more points, staff should administer the PHQ-9): 0 In the past year, patient experienced: One or more falls in the last year: No Do you feel unsteady when standing or walking?: No Do you worry about falling?: Yes Safety Do you have a working smoke detector in your home?: Yes Does your home have throw rugs, poor lighting, or a slippery bath tub/shower?: No Do you always fasten your seatbelt when you are in a vehicle?: Yes What is your typical mode of transportation: Car Physical Activity How many days a week do you usually exercise?: 0 - I do not exercise How intense is your typical exercise?: I am currently not exercising Nutrition How would you rate your appetite?: Good How would you describe the condition of your mouth and teeth/dentures?: Good On a typical day, how many servings of fruits and vegetables do you eat?: N/A On a typical day, how many servings of high fiber/whole-grain foods do you eat?: N/A On a typical day, how many servings of high fat/fried foods do you eat?: N/A Have you experienced any of the following problems currently or recently? Eating: No Grooming: No Bathing: No Walking: No Using the toilet: No Memory problems: No Difficulty speaking: No Dressing: No Balance: No Pain: (!) Yes, left shoulder, currently scheduled for surgery with Dr. Vo in January, and will need a medical clearance less than 30 days before that. Sexual Health: No Fatigue: No Depression: No Life Satisfaction: No Stress: No Anger: No Loneliness or Social Isolation: No Suicide: No Have you experienced any of the following problems currently or recently? Laundry and/or housekeeping: No Handling money: No Shopping: No Using the Phone: No Food preparation: No Transportation: No Taking and/or getting your own medications: No Do you use prescription drugs that are not prescribed for you?: No Health Maintenance: Health Maintenance Topics with due status: Overdue Topic Date Due DTaP/Tdap/Td Vaccine 05/11/2023 Covid-19 Vaccine 06/20/2024 Well Visit 65+ 09/04/2024 Health Maintenance Topics with due status: Due Soon Topic Date Due Breast Cancer Screening-Mammogram 01/11/2025 Health Maintenance Topics with due status: Not Due Topic Last Completion Date Osteoporosis Screening-Bone Density Scan 03/05/2023 Colon Cancer Screening-Colonoscopy 04/03/2023 Fall Risk Assessment 12/29/2024 Depression Screening 12/29/2024 Health Maintenance Topics with due status: Completed Topic Last Completion Date Hepatitis C Screening 02/13/2017 Pneumococcal vaccine 65+ 12/03/2018 Zoster Vaccine 02/21/2021 Hepatitis B Screening 02/09/2024 Influenza Vaccine 06/30/2024 Health Maintenance Topics with due status: Discontinued Topic Date Due Colon Cancer Screening-DNA Stool Discontinued Colon Cancer Screening-CT Colonography Discontinued Colon Cancer Screening-FIT Discontinued Colon Cancer Screening-Sigmoidoscopy Discontinued Detection of Cognitive Impairment: The patient does not have cognitive impairment based on direct observation, discussion with patientor family, or review of medical records. Counseling and Referral to Preventative Services: Lifestyle Recommendations Increase Physical Activity, Reduce Weight, and Improve Diet I reviewed the patient's home and community safety, including driving, and made the following recommendations: No new recommendations. Advanced Directive Durable Power of Western Philosophy Professor: Discussed Today: Living Will: Discussed Today: Diagnoses and all orders for this visit: Medicare annual wellness visit, subsequent (Primary) Comments: Preventive care reviewed. Cognitive evaluation, depression/alcohol/opioid screen, fall risk and health risk assessments completed. Essential hypertension Assessment & Plan: Chronic, present for many years, recommend continuing valsartan- hydrochlorothiazide 32-25 mg daily,hydralazine 100 mg 3 times daily, and other medications listed elsewhere. She reports no longer taking nifedipine or clonidine. Systolic blood pressure his mildly to moderately elevated today, last three blood pressures appeared to be on a slight trend upward. We consulted with the patient's cardiology nurse practitioner via secure chat and we will resume clonidine 0.1 mg twice daily as needed for systolic blood pressure readings 150 mm Hg or higher. This decision was rendered after the patientcompleted the office visit, so we will communicate with her via telephone on this matter. Orders: - Lipid panel; Future - Comprehensive metabolic panel; Future - Thyroid Function Gove; Future - CBC with auto differential; Future Mixed hyperlipidemia Assessment & Plan: Chronic, present for 7-8 or more years, recommend continuine ezetimib 10 mg daily. She is intolerant of statins. Paroxysmal atrial fibrillation (HCC) Assessment & Plan: Chronic/paroxysmal, diagnosed 6-7 years ago, recommend continuing amiodarone 100 mg daily, apixaban5 mg twice daily, and metoprolol XL 12.5 mg daily. Hypertensive heart disease with chronic diastolic congestive heart failure (HCC) Assessment & Plan: Chronic, preseng for 5-6 years or more, recommend continuing furosemide 20 mg daily and other cardiac medications listed elsewhere. The dose of furosemide was decreased recently due to hyponatremia with a follow-up BMP scheduled to be done in a couple of weeks. Orders: - furosemide (LASIX) 40 mg tablet; Take 0.5 tablets (20 mg total) by mouth daily Class 1 obesity due to excess calories with serious comorbidity and body mass index (BMI) of 30.0 to 30.9 in adult Assessment & Plan: Chronic, recommend lifestyle modification with continued weight loss efforts. Excoriation of right ear canal, initial encounter Assessment & Plan: New finding of uncertain cause or significance. She has a darkly pigmented macule on the floor of the right ear canal at the external auditory meatus. It could be a hematoma or excoriation due to minor trauma. It could be dried and adherent wax. It could be a nevus. I was unable to remove it using the ear loop. We recommended use of Debrox for about two weeks and reexamination in the office at that time. Hyponatremia Assessment & Plan: Intermittent/recurrent, we have struggled to keep her sodium up while at the same time keeping her other conditions under control, especially peripheral edema in the legs. The dose of loop diuretic was reduced recently. Follow-up labs will be done in about 10-14 days. Lab Results Component Value Date GLUCOSE 112 12/21/2024 CALCIUM 8.9 12/21/2024 SODIUM 128 (L) 12/21/2024 POTASSIUM 3.6 12/21/2024 CO2 26 12/21/2024 CHLORIDE 89 (L) 12/21/2024 BUNSER 13 12/21/2024 CREATININE 0.81 12/21/2024 Breast cancer screening by mammogram - Screening Mammogram Bilateral W Virgilio; Future Assessment & Plan Hyponatremia Chronic hyponatremia with recent blood test indicating decreased sodium levels. Furosemide dosage reduced to 20 mg. Concerns about dietary sodium restrictions and potential use of electrolyte drinks like Gatorade, which may increase sodium but also blood pressure. - Continue furosemide 20 mg until next blood test - Advise on moderate use of electrolyte drinks like Gatorade - Order follow-up blood test for sodium levels a day or two before next visit Hypertension Blood pressure slightly elevated at 166/64. Not currently taking clonidine, previously prescribed for management. Consultation with nurse practitioner initiated for management options. - Consult with nurse practitioner regarding blood pressure management Medication management On multiple medications including amiodarone, apixaban, ezetimibe, gabapentin, levothyroxine. Reports issues with statins and discontinued clonidine and nifedipine. Furosemide adjusted due to hyponatremia. - Review current medication regimen - Ensure compliance with current medications Right ear canal lesion Dark spot in right ear canal, possibly a bruise or mole, potentially due to trauma from cleaning. Recommended earwax softener and re-evaluation. - Use Debrox earwax softener for two weeks - Re-evaluate the right ear canal in two weeks Pre-operative clearance for shoulder surgery Scheduled for shoulder surgery on February 07, 2025. Pre-operative clearance required 30 days prior. - Provide pre-operative clearance letter for shoulder surgery - Coordinate with surgical team for pre-operative requirements Preventive care Due for mammogram at end december. Discussed optional tetanus and COVID boosters, noting Medicare coverage limitations. - Schedule mammogram for december - Discuss tetanus booster and COVID booster options Follow-up Follow-up visit scheduled in two weeks to reassess sodium levels and ear canal lesion. Blood tests for sodium to be done a day or two before the visit. - Schedule follow-up visit in two weeks - Check fast labs before next visit Recording duration: 19 minutes History of Present Illness The patient presents for an annual physical exam. She is currently taking several medications including amiodarone 100 mg daily, apixaban 5 mg twice daily, Nexium 40 mg twice daily, ezetimibe 10 mg, Flonase as needed, furosemide 20 mg, hydralazine 100 mg three times daily, gabapentin 100 mg at bedtime, levothyroxine 200 mcg, magnesium oxide 400 mcg, metoprolol XL 25 mg (half tablet), and valsartan/hydrochlorothiazide 320/25 mg. She has stopped taking clonidine and nifedipine. She is concerned about low sodium levels, which were noted after a blood test on December 21, 2024. Following this, her furosemide dose was adjusted to 20 mg. She is monitoring her sodium levels and plans to have another blood test before her next visit. She wants to have her shoulder surgery scheduled for February 07, 2025, but needs to address her sodium levels first. She has a history of allergies for which she uses Flonase as needed. She also reports having had cataract surgery in both eyes. No chest pain, pressure, or tightness. Normal bowel and bladder function. No blood in stool or urine. She is concerned about a dark spot in her right ear canal, which she does not recall seeing before. Problem List, Past Medical and Surgical History: Patient Active Problem List Diagnosis Atopic rhinitis Mixed hyperlipidemia ISSA (obstructive sleep apnea) Atypical ductal hyperplasia of breast Low bone density Essential hypertension Postoperative hypothyroidism Overactive bladder Elevated glucose Chronic pain of both knees Hypertensive heart disease with diastolic congestive heart failure (HCC) Hyponatremia Gastroesophageal reflux disease Dyspepsia Nocturnal leg cramps Acute left-sided low back pain with left-sided sciatica Hiatal hernia Chronic constipation Class 1 obesity due to excess calories with serious comorbidity and body mass index (BMI) of 30.0 to 30.9 in adult Lower extremity edema Shortness of breath Tear film insufficiency Punctate keratitis Pseudophakia History of laser assisted 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 Atrial fibrillation (HCC) BPPV (benign paroxysmal positional vertigo), right 12/28/[address] Brenner, vertigo reported as resolved. Chicken pox 1955 Chronic diastolic congestive heart failure (HCC) 01/19/2018 Followed by cardiology, echocardiograms. Class 2 severe obesity due to excess calories with serious comorbidity and body mass index (BMI) of38.0 to 38.9 in adult (HCC) 03/12/2018 Weight fluctuates, working on reducing. COVID-19 03/05/2022 Simultaneous flu and Covid, treated with Tamiflu and monoclonal antibody with rapid recovery. Dysphagia 03/02/2020 Added automatically from request for surgery [id number], see EGD, improved with treatment of Steff. Epistaxis 06/03/2018 Saw ENT, see note. Exertional dyspnea 09/19/2019 Likely due to weight, deconditioning, diastolic dysfunction. Gastroesophageal reflux disease Hyperlipidemia Hypertension Hypothyroidism Influenza B 03/05/2022 Saw TERA Connell, treated with Tamiflu. Non morbid obesity 04/19/2010 Obesity (BMI 30-39.9) 04/19/2000 Obesity (BMI 35.0-39.9 without comorbidity) 04/19/2000 Other chest pain 01/19/2018 Negative heart cath on 01/20/18 Overactive bladder Postmenopausal 04/19/2010 Pseudophakia of both eyes 04/11/2017 Thyroid nodule status post surgery Vertigo 11/16/2021 Seen in [place] [facility]. Rx with meclizine. No recurrence as of July 2022. Saw director of public relations for this and ringing. Past Surgical History: Procedure Laterality Date BLADDER SURGERY Overactive bladder: bladder repair, details lacking. BREAST BIOPSY Right Benign breast lump (fibroadenoma) removed, dates and details lacking. CARDIAC CATHETERIZATION Left 01/20/2018 No high grade lesions warranting intervention, Dr. Tena, [facility]. CARDIAC CATHETERIZATION Left 01/31/2022 No significant CAD or renal artery disease, Dr. Tena, [facility]. Done for abnormal stress test. CARDIOVERSION 01/21/2018 For atrial fibrillation, [facility]. CARDIOVERSION N/A 06/03/2024 Dr. Tena, [facility]. CHOLECYSTECTOMY 1980 Cholecystectomy ESOPHAGOGASTRODUODENOSCOPY 04/04/2020 Mild esophageal candidiasis, diffuse gastropathy with some retained food, small HH, Dr. Melendez, [facility]. FINE NEEDLE ASPIRATION Thyroid nodules: biopsy normal, details lacking COLONOSCOPY 08/03/2014 Normal except hemorrhoids and diverticulosis, Dr. Brooks, [facility]. COLONOSCOPY 04/03/2023 Fair prep, no specimens collected. Repeat colonoscopy in 3 years for screening purposes due to fairprep. DEXA SCAN 02/18/2019 Left hip osteopenia, normal spine. DEXA SCAN 01/01/2021 Fem Neck T Score -1.3. [facility]. [facility] MAMMOGRAPHY Bilateral 10/08/2019 Negative, [facility]. HM MAMMOGRAPHY Bilateral 10/09/2020 Negative, [facility]. [facility] MAMMOGRAPHY Bilateral 10/10/2021 Negative, [facility]. [facility] MAMMOGRAPHY Bilateral 12/12/2022 Negative, [facility] MAMMOGRAPHY Bilateral 01/12/2024 Negative, [facility]. KNEE ARTHROSCOPY Right 05[facility]24 [facility] OTHER SURGICAL HISTORY 2013 er-rt humerus fracture TOTAL ABDOMINAL HYSTERECTOMY W/ BILATERAL SALPINGOOPHORECTOMY [address] Dr. Contreras TOTAL THYROIDECTOMY 2014 total Thyroidectomy UPPER GASTROINTESTINAL ENDOSCOPY 04/03/2023 Erythematous stomach, mild reactive gastropathy. Esophageal plaques were found, suspicious for candidiasis but negative PAS stain. Gastric polyp resected. Z- line irregular, with focal intestinal metaplasia, no dysplasia or malignancy. Dr. Kumar, [facility]. Family History: Family History Problem Relation Age of Onset Diabetes Mother Diabetes mellitus; Hypertension Mother Hypertension; Thyroid disease Mother Thyroid disorder; Coronary artery disease Mother 79 COD Diabetes type II Mother Diabetes -Type 2; Other Sister Alive and well; Hypertension Father Hypertension; Coronary artery disease Father Coronary artery disease; /Coronary artery disease; Cause of : Coronary artery disease Other Other No family history of Cancer; Multiple sclerosis Brother Multiple sclerosis; Thyroid disease Sister Thyroid disorder; Hypertension Brother Hypertension; Diabetes Other Family history of Diabetes mellitus; Heart disease Other Family history of Heart disease; Hypertension Other Family history of Hypertension; Multiple sclerosis Other Family history of Multiple sclerosis; Multiple sclerosis Brother Multiple sclerosis; Coronary artery disease Brother Stents Heart attack Brother Myocardial infarction; Cause of : Myocardial infarction Social History: Social History Tobacco Use Smoking status: Never Smokeless tobacco: Never Substance and Sexual Activity Drug use: No Sexual activity: None Alcohol Use: Not At Risk (04/03/2023) AUDIT-C Frequency of Alcohol Consumption: Monthly or less Average Number of Drinks: 1 or 2 Frequency of Binge Drinking: Never Allergies: Allergies Allergen Reactions Celecoxib Anaphylaxis, Other (See comments), Hives and Swelling Reaction: swelling, , Reaction: anaphylaxis, Shellfish Containing Products Other (See comments) and Anaphylaxis Allergy tested Reaction: throat itch, nausea, Fish Containing Products Swelling and Other (See comments) Reaction: throat itching, swelling, , Shellfish Derived Swelling and Other (See comments) Reaction: throat itching, swelling, [id number] Reductase Inhibitors Muscle pain Sulfa (Sulfonamide Antibiotics) Other (See comments), Itching and Swelling Reaction: swelling, Sulfanilamide Fish Oil Cough Mupirocin Other (See comments) Reaction: thinks she was allergic too this med, Medications: Current Outpatient Medications: amiodarone (PACERONE) 200 mg tablet, Take 0.5 tablets (100 mg total) by mouth daily, Disp: 30 tablet, Rfl: 2 apixaban (ELIQUIS) 5 mg tablet, Take 1 tablet (5 mg total) by mouth 2 (two) times a day, Disp: 60 tablet, Rfl: 11 cholecalciferol, vitamin D3, 1,000 unit tablet,chewable, Take 1 tablet/chew tab by mouth daily, Disp: , Rfl: esomeprazole DR (NexIUM) 40 mg capsule, Take 1 capsule by mouth twice daily, Disp: 180 capsule, Rfl: 1 ezetimibe (ZETIA) 10 mg tablet, Take 1 tablet by mouth once daily, Disp: 90 tablet, Rfl: 0 fluticasone propionate (FLONASE) 50 mcg/actuation nasal spray, Administer 1 spray into each nostril2 (two) times a day as needed for allergies, Disp: , Rfl: gabapentin (NEURONTIN) 100 mg capsule, Take 1-2 capsules (100-200 mg total) by mouth nightly, Disp:180 capsule, Rfl: 3 hydrALAZINE (APRESOLINE) 100 mg tablet, TAKE 1 TABLET BY MOUTH THREE TIMES DAILY, Disp: 270 tablet,Rfl: 3 levothyroxine (SYNTHROID) 200 mcg tablet, Take 1 tablet by mouth once daily, Disp: 90 tablet, Rfl: 0 magnesium oxide 400 mg magnesium capsule, Take 1 tablet by mouth daily, Disp: , Rfl: metoprolol XL (TOPROL-XL) 25 mg extended release tablet, Take 0.5 tablets (12.5 mg total) by mouth daily, Disp: 45 tablet, Rfl: 3 oxyBUTYnin (DITROPAN) 5 mg tablet, Take 1 tablet by mouth twice daily, Disp: 180 tablet, Rfl: 0 potassium chloride ER 20 mEq CR tablet, Take 1 tablet by mouth once daily, Disp: 90 tablet, Rfl: 0 valsartan-hydrochlorothiazide (DIOVAN-HCT) 320-25 mg per tablet, Take 1 tablet by mouth daily, Disp: 30 tablet, Rfl: 11 furosemide (LASIX) 40 mg tablet, Take 0.5 tablets (20 mg total) by mouth daily, Disp: , Rfl: zoledronic acid 4 mg/5 mL injection, Infuse 6.3 mL (5 mg total) into a venous catheter once for 1 dose (Patient not taking: Reported on 09/27/2024), Disp: 6.3 mL, Rfl: 0 Depression Screen: PHQ Screening PHQ-2 Total Score (If total score is 3 or more points, staff should administer the PHQ-9): 0 Review of Systems HENT: Negative for hearing loss. Eyes: Negative for photophobia, discharge and redness. Respiratory: Negative for shortness of breath (with minimal exertion). Cardiovascular: Negative for chest pain, palpitations and leg swelling (controlled with diuretic). Gastrointestinal: Negative for abdominal pain, blood in stool, constipation and diarrhea. Endocrine: Obese, chronic hyponatremia at least partly due to meds. Genitourinary: Negative for dysuria and hematuria. Musculoskeletal: Positive for arthralgias (left shoulder). Negative for neck pain. Neurological: Negative for headaches. Vitals: Vitals BP 166/64 (BP Location: Left arm, Patient Position: Sitting) Pulse 85 Temp 36.3 ??C (97.3 ??F) (Temporal) Resp 16 Ht 167.6 cm (5' 5.98 ) Wt 82.4 kg (181 lb 9.6 oz) SpO2 97% BMI 29.33 kg/m?? Body mass index is 29.33 kg/m??. Exam: Physical Exam Constitutional: General: She is not in acute distress. HENT: Right Ear: Tympanic membrane and ear canal normal. Ears: Comments: Well-defined dark macule, floor right ear canal at external auditory meatus. Size estimate difficult due to magnification from otoscope. Probably 2-3 mm. Mouth/Throat: Pharynx: No oropharyngeal exudate. Eyes: General: No scleral icterus. Right eye: No discharge. Left eye: No discharge. Conjunctiva/sclera: Conjunctivae normal. Neck: Thyroid: No thyromegaly. Cardiovascular: Rate and Rhythm: Normal rate and regular rhythm. Heart sounds: No murmur heard. Pulmonary: Effort: Pulmonary effort is normal. No respiratory distress. Breath sounds: No wheezing. Abdominal: Palpations: Abdomen is soft. There is no mass. Tenderness: There is no abdominal tenderness. There is no guarding. Musculoskeletal: General: No tenderness. Right lower leg: No edema. Left lower leg: No edema. Comments: No joint warmth or swelling noted. Lymphadenopathy: Head: Right side of head: No preauricular, posterior auricular or occipital adenopathy. Left side of head: No preauricular, posterior auricular or occipital adenopathy. Cervical: No cervical adenopathy. Upper Body: Right upper body: No supraclavicular or axillary adenopathy. Left upper body: No supraclavicular or axillary adenopathy. Skin: General: Skin is warm. Findings: No rash. Neurological: Mental Status: She is alert. Cranial Nerves: No cranial nerve deficit. Psychiatric: Mood and Affect: Mood normal. Behavior: Behavior normal. Thought Content: Thought content normal. Physical Exam VITALS: P- 85, BP- 166/64 HEENT: Ears normal bilaterally. Conjunctiva and pupils normal. NECK: No cervical or supraclavicular lymphadenopathy. Thyroid normal. CHEST: Lungs clear to auscultation bilaterally. CARDIOVASCULAR: Regular heart rhythm, no murmurs. No carotid bruit. Radial pulses normal bilaterally. ABDOMEN: Liver and spleen normal. EXTREMITIES: No edema in extremities. Care Team Providers: Patient Care Team: Nathan Cross MD as PCP - General (Infectious Diseases) Jh Tena MD as Consulting Physician (Cardiology) Carmen Hurst MD as Consulting Physician (Neurology) Reji Clarke DO as Referring Physician (Orthopedic Surgery) Vaughn Melendez MD as Consulting Physician (Gastroenterology) Frederick Burton DMD as Dentist (Dental Swatch Cutter) Doris Brenner DO as Consulting Physician (Otolaryngology) Obdulio Kumar MD as Consulting Physician (Gastroenterology) Catracho Fernandez MD as Consulting Physician (Orthopedic Surgery) El Vo MD as Referring Physician (Orthopedic Surgery) Pati Yang NP as Nurse Practitioner (Cardiology) Primary Pharmacy/DME suppliers: [facility] - [facility] [address] [facility] [address] [facility] [address] [id number] - [place], [place] - [address] [facility] [address] [facility] [id number] Answers submitted by the patient for this visit: High Blood Pressure Questionnaire (Submitted on 12/29/2024) Chief Complaint: Hypertension Chronicity: chronic Onset: more than 1 year ago Progression since onset: unchanged Condition status: controlled anxiety: No blurred vision: No malaise/fatigue: No orthopnea: No peripheral edema: No PND: No sweats: No Agents associated with hypertension: thyroid hormones CAD risks: family history Compliance problems: no compliance problems documented in this encounter Miscellaneous Notes * Assessment & Plan Note - Nathan Cross MD - 12/29/2024 12:07 PM CDT Associated Problem(s): Hyponatremia Intermittent/recurrent, we have struggled to keep her sodium up while at the same time keeping her other conditions under control, especially peripheral edema in the legs. The dose of loop diuretic was reduced recently. Follow-up labs will be done in about 10-14 days. Lab Results Component Value Date GLUCOSE 112 12/21/2024 CALCIUM 8.9 12/21/2024 SODIUM 128 (L) 12/21/2024 POTASSIUM 3.6 12/21/2024 CO2 26 12/21/2024 CHLORIDE 89 (L) 12/21/2024 BUNSER 13 12/21/2024 CREATININE 0.81 12/21/2024 * Assessment & Plan Note - Nathan Cross MD - 12/29/2024 12:05 PM CDT Associated Problem(s): Excoriation of right ear canal New finding of uncertain cause or significance. She has a darkly pigmented macule on the floor of the right ear canal at the external auditory meatus. It could be a hematoma or excoriation due to minor trauma. It could be dried and adherent wax. It could be a nevus. I was unable to remove it using the ear loop. We recommended use of Debrox for about two weeks and reexamination in the office at that time. * Assessment & Plan Note - Nathan Corss MD - 12/28/2024 7:51 PM CDT Associated Problem(s): Mixed hyperlipidemia Chronic, present for 7-8 or more years, recommend continuine ezetimib 10 mg daily. She is intolerant of statins. * Assessment & Plan Note - Nathan Cross MD - 12/28/2024 7:49 PM CDT Associated Problem(s): Hypertensive heart disease with diastolic congestive heart failure (HCC) Chronic, preseng for 5-6 years or more, recommend continuing furosemide 20 mg daily and other cardiac medications listed elsewhere. The dose of furosemide was decreased recently due to hyponatremia with a follow-up BMP scheduled to be done in a couple of weeks. * Assessment & Plan Note - Nathan Cross MD - 12/28/2024 7:48 PM CDT Associated Problem(s): Essential hypertension Chronic, present for many years, recommend continuing valsartan- hydrochlorothiazide 32-25 mg daily,hydralazine 100 mg 3 times daily, and other medications listed elsewhere. She reports no longer taking nifedipine or clonidine. Systolic blood pressure his mildly to moderately elevated today, last three blood pressures appeared to be on a slight trend upward. We consulted with the patient's cardiology nurse practitioner via secure chat and we will resume clonidine 0.1 mg twice daily as needed for systolic blood pressure readings 150 mm Hg or higher. This decision was rendered after the patientcompleted the office visit, so we will communicate with her via telephone on this matter. * Assessment & Plan Note - Nathan Cross MD - 12/28/2024 7:47 PM CDT Associated Problem(s): Class 1 obesity due to excess calories with serious comorbidity and body mass index (BMI) of 30.0 to 30.9 in adult Chronic, recommend lifestyle modification with continued weight loss efforts. * Assessment & Plan Note - Nathan Cross MD - 12/28/2024 7:46 PM CDT Associated Problem(s): Atrial fibrillation (HCC) Chronic/paroxysmal, diagnosed 6-7 years ago, recommend continuing amiodarone 100 mg daily, apixaban5 mg twice daily, and metoprolol XL 12.5 mg daily. documented in this encounter Plan of Treatment Scheduled Orders Name Type Priority Associated Diagnoses Orde r Schedule Screening Mammogram Bilateral W [place] Imaging Schedule Routine, Read Routine (OP Routine) Breast cancer screening by mammogram Expected: 01/13/2025, Expires: 02/28/2026 Lipid panel Lab Routine Essential hypertension Expected: 06/24/2025, Expires: 12/29/2025 Comprehensive metabolic panel Lab Routine Essential hypertension Expected: 06/24/2025, Expires: 12/29/2025 Thyroid Function [facility] Lab Routine Essential hypertension Expected: 06/24/2025, Expires: 12/29/2025 CBC with auto differential Lab Routine Essential hypertension Expected: 06/24/2025, Expires: 12/29/2025 documented as of this encounter Visit Diagnoses Diagnosis Medicare annual wellness visit, subsequent- Primary Essential hypertension Unspecified essential hypertension Mixed hyperlipidemia Paroxysmal atrial fibrillation (HCC) Atrial fibrillation Hypertensive heart disease with chronic diastolic congestive heart failure (HCC) Class 1 obesity due to excess calories with serious comorbidity and body mass index (BMI) of 30.0 to 30.9 in adult Excoriation of right ear canal, initial encounter Hyponatremia Hyposmolality and/or hyponatremia Breast cancer screening by mammogram documented in this encounter Discontinued Medications Medication Sig Discontinue Reason Start Date End Da te amoxicillin (AMOXIL) 875 mg tablet Take 1 tablet (875 mg total) by mouth 2 (two) times a day Therapy completed 11/26/2024 12/28/2024 furosemide (LASIX) 40 mg tabletIndications:Hyper tensive heart disease with chronic diastolic congestive heart failure (HCC) Take 1 tablet by mouth once daily 10/06/2024 12/29/2024 cloNIDine (CATAPRES) 0.1 mg tablet Take 1 tablet (0.1 mg total) by mouth 2 (two) times a day As needed for blood pressure readings of 160 or higher. Other 08/25/2023 12/29/2024 documented as of this encounter Historical Medications * This list may reflect changes made after this encounter. amoxicillin (AMOXIL) 875 mg tablet Take 1 tablet (875 mg total) by mouth 2 (two) times a day 11/26/2024 12/28/2024 added in this encounter Care Teams Assault Amphibious Vehicle Crewman Relationship Specialty Start Date End Date Nathan Cross MD [address] [place] [address] PCP - General Infectious Diseases 02/17/20 Jh Tena MD Consulting Physician Cardiology 01/08/18 Carmen Hurst MD Consulting Physician Neurology 01/08/18 Reji Clarke DO [address] [place] [address] Referring Physician Orthopedic Surgery 08/17/19 Vaughn Melendez MD [address] [place] [address] Consulting Physician Gastroenterology 08/03/20 Frederick Burton DMD [address] [place] [address] Dentist Dental Swatch Cutter 04/12/21 Doris Brenner DO [address] [facility] [address] [place] [address] Consulting Physician Otolaryngology 12/28/21 Obdulio Kumar MD [address] [facility] [address] [place] [address] Consulting Physician Gastroenterology 04/03/23 [place] [id number] [address] Consulting Physician Orthopedic Surgery 04/24/23 El Vo MD [address] [facility] 10 [place] [address] Referring Physician Orthopedic Surgery 10/15/23 Pati Yang NP [address] [facility] [address] [place] [address] Nurse Practitioner Cardiology 03/31/24 documented as of this encounter
--- OUTSIDE RECORDS SUMMARY | 2024-12-30 14:18 | XMS_ITS | Encounter Summary ---
Author Organization [facility] Healthcare Address [address] [place] [address] Care Team Providers Care Summer Associate Name Role Phone Jh Tena MD Unavailable [phone] Carmen Hurst MD Unavailable Reji Clarke DO Unavailable [phone] Nathan Cross MD Primary Care Provider [phone] Vaughn Melendez MD Unavailable [phone] Frederick Burton DMD Unavailable [phone] Doris Brenner DO Unavailable [phone] Obdulio Kumar MD Unavailable Catracho Fernandez MD Unavailable [phone] El Vo MD Unavailable [phone] Pati Yang NP Unavailable [phone] Encounter Details Date Type Department Care Team (Late st Contact Info) Description 12/29/[address] 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 60 tablet 5 12/29/2024 documented in this encounter Miscellaneous Notes * Telephone Encounter - Ori Aquino RN - 12/30/2024 11:09 AM CDT Spoke to pt et informed of below ECS message Pt voices understand et has no further questions @ this time * Telephone Encounter - Nathan Cross MD - 12/29/2024 4:48 PM CDT Please call the patient. I heard from cardiology, they recommend that she go back on clonidine 0.1 mg twice daily for systolic blood pressure exceeding about 150 mm Hg. I am sending in a prescription. documented in this encounter Plan of Treatment Not on file documented as of this encounter Visit Diagnoses Diagnosis Essential hypertension- Primary Unspecified essential hypertension documented in this encounter Care Teams Summer Associate Relationship Specialty Start Date End Date Nathan Cross MD [address] [place] [address] PCP - General Infectious Diseases 02/17/20 Jh Tena MD Consulting Physician Cardiology 01/08/18 Carmen Hurst MD Consulting Physician Neurology 01/08/18 Reji Clarke DO [address] [place] [address] Referring Physician Orthopedic Surgery 08/17/19 Vaughn Melendez MD [address] [address] Consulting Physician Gastroenterology 08/03/20 Frederick Burton DMD [address] [place] [address] Dentist Dental Press Operator [employer] 04/12/21 Doris Brenner DO [address] [place] [address] [address] [place] [address] Consulting Physician Otolaryngology 12/28/21 Obdulio Kumar MD [address] [place] [address] [address] [place] [address] Consulting Physician Gastroenterology 04/03/23 [place] [address] [facility] [address] [place] [address] Consulting Physician Orthopedic Surgery 04/24/23 El Vo MD [address] [facility] 10 [place] [address] Referring Physician Orthopedic Surgery 10/15/23 Pati Yang NP [address] [facility] 10 [place] [address] Nurse Practitioner Cardiology 03/31/24 documented as of this encounter
--- OUTSIDE RECORDS SUMMARY | 2024-12-30 14:18 | XMS_ITS ---
Care Plan - [facility] Created on: December 30, 2024 MONAE PRESCOTT : 1950 Sex: Female Author Organization [facility] Address [address] [place] [address] Phone Care Team Providers Care Biomechanical Engineer Name Role Phone JUNAID SONI, MILENA Banegas Unavailable [phone] MABEL MULLINS Primary Care Provider [phone]
--- OUTSIDE RECORDS SUMMARY | 2024-12-30 14:18 | XMS_ITS | Encounter Summary ---
Author Organization [facility] Healthcare Address [address] [place] [address] Care Team Providers Care Salvage Repairer Name Role Phone Jh Tena MD Unavailable [phone] Carmen Hurst MD Unavailable Luis Alberto Beauchamp MD Unavailable [phone] Reji Clarke DO Unavailable [phone] Nathan Cross MD Primary Care Provider Vaughn Melendez MD Unavailable [phone] Frederick Burton DMD Unavailable [phone] Doris Brenner DO Unavailable [phone] Obdulio Kumar MD Unavailable Catracho Fernandez MD Unavailable [phone] El Vo MD Unavailable [phone] Pati Yang NP Unavailable [phone] Encounter Details Date Type Department Care Team (Late st Contact Info) Description 01/29/2024 Orders Only [facility] [address] [place] [address] Scanning, Provider Social History Tobacco [...] on file 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 Gender Identity Female 05/03/2020 10:38 PM CDT Sexual Orientation Straight 05/03/2020 10 :38 PM CDT 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 Not on file Not on file documented as of this encounter Plan of Treatment Not on file documented as of this encounter Procedures Procedure Name Priority Date/Time Associated Diagnosis Comments SCAN - LABS 01/29/2024 SCAN - RADIOLOGY/IMAGING 01/28/2024 documented in this encounter Results * SCAN - LABS (01/29/2024) us Provider Scanning Final Result * SCAN - RADIOLOGY/IMAGING (01/28/2024) Anatomical Region Laterality Modality Other us Provider Scanning Final Result documented in this encounter Visit Diagnoses Not on filedocumented in this encounter Care Teams Salvage Repairer Relationship Specialty Start Date End Date Nathan Cross MD [address] [place] [address] PCP - General Infectious Diseases 02/17/20 Jh Tena MD Consulting Physician Cardiology 01/08/18 Carmen Hurst MD Consulting Physician Neurology 01/08/18 Luis Alberto Beauchamp MD [address] [facility] [address] [place] [address] Consulting Physician Endocrinology 06/18/19 02/12/24 Reji Clarke DO [address] [place] [address] Referring Physician Orthopedic Surgery 08/17/19 Vaughn Melendez MD [address] [place] [address] [address] [place] [address] Consulting Physician Gastroenterology 08/03/20 Frederick Burton DMD [address] [place] [address] Dentist Dental Outdoor Power Equipment Mechanic 04/12/21 Doris Brenner DO [address] [place] [address] [address] [address] Consulting Physician Otolaryngology 12/28/21 Obdulio Kumar MD [address] [place] [address] [address] [place] [address] Consulting Physician Gastroenterology 04/03/23 [place] [address] [address] Consulting Physician Orthopedic Surgery 04/24/23 El Vo MD [address] [facility] 10 [place] [address] Referring Physician Orthopedic Surgery 10/15/23 Pati Yang NP [address] [place] [address] Nurse Practitioner Cardiology 03/31/24 documented as of this encounter
--- OUTSIDE RECORDS SUMMARY | 2024-12-30 14:18 | XMS_ITS | Encounter Summary ---
Author Organization [facility] Address [address] [place] [address] Care Team Providers Care Leather Goods Ii Assembler Name Role Phone Cheryl Shukla MD Primary Care Provider [phone] Encounter Details Date Type Department Care Team (Late st Contact Info) Description 09/22/2008 Outpatient Historical [facility] LUIS Valerio, Valeria Adrian MD [address] [facility] [address] [place] [address] [place] [id number] Social History Tobacco Use Types Packs/Day Years Used Date Smoking Tobacco: Never Assessed Comments Unknown Sex and Gender Information Value Date Recorded Sex Assigned at Not on file Legal Sex Female 5:40 AM [employer] Gender Identity Not on file Sexual Orientation Not on file documented as of this encounter Plan of Treatment Not on file documented as of this encounter Procedures Procedure Name Priority Date/Time Associated Diagnosis Comments PATHOLOGY Routine 09/22/2008 1:37 PM [facility] MAMMO BREAST SPECIMEN RT Routine 09/22/2008 1:10 PM [employer] [employer] MAMMO NEEDLE LOC EA LESION RT Routine 09/22/2008 12:20 PM [employer] [facility] [employer] XR CONSULTATION Routine 09/22/2008 12:20 PM [employer] [employer] MAMMO DIAGNOSTIC UNI RIGHT W OR WO CAD Routine 09/22/2008 12:20 PM [employer] [employer] HEMOGLOBIN AND HEMATOCRIT Stat 09/22/2008 10:55 AM [employer] [facility] [employer] BASIC METABOLIC PANEL Stat 09/22/2008 10:55 AM [employer] [employer] documented in this encounter Results * PATHOLOGY (09/22/2008 1:37 PM [employer]) FINAL REPORT [facility] [address] [place], [place] [address] Patient: BRIGIDA ORDAZ : 1950 Procedure Date: 09/22/2008 Accession Date: 09/22/2008 Case No: [id number] Ordering Dr: VALERIA VALERIO Case types AW, BW, FW, NW and SH are performed [place] [facility] [place] SURGICAL PATHOLOGY & NON-GYNECOLOGIC CYTOPATHOLOGY REPORT DIAGNOSIS BREAST, RIGHT, EXCISIONAL BIOPSY: - ATYPICAL LOBULAR HYPERPLASIA. - FIBROCYSTIC CHANGES. - MICROCALCIFICATIONS. Specimen Description: Right breast calcifications, long stitch lateral, short stitch superior. Operative Procedure: Right breast biopsy with needle localization. Patient Information/History/ Diagnosis: Right breast mass. Gross: Received in one container labeled Brigida Ordaz., right breast calcifications, long stitch lateral, short stitch superior is a 2.6 (M-L) x 4.0 (A-P) x 4.5 (S-I)-cm oriented portion of fibroadipose tissue with a needle localization wire extending into the anterior portion of the specimen. The specimen is oriented with a short stitch superior and a long stitch lateral. The specimen is inked as follows: anterior-yellow, posterior-green, medial-blue, and lateral-black. The specimen is serially sectioned from superior to inferior to demonstrate dense fibrous tissue intermixed with adipose tissue. No mass lesions are identified. The specimen is received with a radiograph labeled with the patient's name and interpreted by ella Todd as calcifications. The specimen is submitted entirely from superior to inferior in blocks A1 through A18. Please note, blocks A2-A3, A4-A5, A6-A7, A8-A9, A10-A11, A12-A13, and A14- A15 represent composite sections. [facility]/S 09.23.2008 07:09 am Microscopic: The slides are labeled [id number], Brigida Ordaz. Sections of the right breast biopsy show very focal atypical lobular hyperplasia (A13 and A16). The expanded lobules are mildly and incompletely expanded, falling short of meeting criteria for lobular carcinoma in situ. Also present in the biopsy are fibrocystic changes including columnar cell change, a few small cysts, focal fibroadenomatoid change, apocrine metaplasia, ductal epithelial hyperplasia without atypia, and numerous microcalcifications . There is no evidence of in situ or invasive carcinoma. Pertinent slides were presented at the intradepartmental case review conference. COMMENT: Certain proliferative lesions identified in breast biopsies are associated with an increased relative risk for the development of invasive carcinoma. The relative risks are compared to the risks for women who have not had a biopsy. The relative risks associated with specific entities are listed below. 1. No increased risk: adenosis; duct ectasia; fibrosis; fibroadenoma (without complex features); mild hyperplasia without atypia; cysts; apocrine or squamous metaplasia; 2. Slightly increased risk (1.5- to 2.0-fold): fibroadenoma with complex features; moderate or florid hyperplasia without atypia; sclerosing adenosis; papilloma; 3. Moderately increased risk (4.0- to 5.0-fold): atypical lobular hyperplasia; atypical ductal hyperplasia; 4. Markedly increased risk (8.0- to 10.0-fold): ductal carcinoma in situ; atypical lobular hyperplasia or atypical ductal hyperplasia when there is also a family history of breast carcinoma affecting a first-degree relative. Reference: Arch Pathol Lab Med 1998;122:7832-5928. CJ/MARIAN 09.26.2008 12:40 pm Staging Form: No. ELECTRONIC SIGNATURE FOR LILA MENDOZA MD- 09/26/08 02:35 pm INTERFACE SYSTEM 09/22/2008 1:37 PM [employer] us Valeria Valerio MD PATHOLOGY/CYTOLOGY ORDERABLE S Final Result INTERFACE SYSTEM Refer to clinic/hospital department * MAMMO BREAST SPECIMEN RT (09/22/2008 1:10 PM [employer]) Anatomical Region Laterality Modality Breast Right Other 09/22/2008 1:10 PM [employer] Narrative 09/23/2008 4:42 PM [employer] [facility] [address] [place], [place] [address] Admit Date: 09/22/2008 BRIGIDA ORDAZ Sex: F Admit Prov: VALERIA VALERIO Date: 1950 Primary Care Prov: CMRN: [id number] Room: [facility] SSN: [id number] IMAGING SERVICES Ordering Prov: VALERIA VALERIO Accession Number: [id number] Interpretation RIGHT BREAST NEEDLE LOCALIZATION, FOLLOW UP 2 VIEW MAMMOGRAM AND SPECIMEN RADIOGRAPH 09/22/2008 History: Fluffy calcifications upper-outer right breast. Needle localization for a small cluster of faint calcifications in the upper-outer right breast. The calcifications were localized mammographically. The overlying skin was cleansed. 1% lidocaine buffered with sodium bicarbonate was injected for superficial anesthesia. A 5 cm localization needle was deployed. Positioning was confirmed mammographically and a small amount of methylene blue was injected. The wire was deployed and taped in place. A follow up two view mammogram demonstrated the calcifications to be adjacent to the wire on the mediolateral view, not well seen on the CC view because of the faint nature of the calcifications. Films were labeled, printed and sent to Dr. Valerio in the Operating Room. A specimen radiograph was obtained. This demonstrated the localization wire as well as the calcifications surrounding the wire. Findings were called to the Dr. Valerio in the Operating room. Impression: Needle localization for a tiny cluster of faint calcifications in the upper-outer right breast. Pathology pending. Dictated by: VIVIANA REHMAN Electronically signed by: VIVIANA REHMAN 09/23/2008 16:41 Transcribed: 09/22/2008 22:01 AMK Procedure Note Viviana Rehman - 09/23/2008 [place] [id number] [place], [place] [address] Admit Date: 09/22/2008 BRIGIDA ORDAZ Sex: F Admit Prov: VALERIA VALERIO Date: 1950 Primary Care Prov: CMRN: [id number] Room: [facility] N: [id number] IMAGING SERVICES Ordering Prov: VALERIA VALERIO Interpretation RIGHT BREAST NEEDLE LOCALIZATION, FOLLOW UP 2 VIEW MAMMOGRAM ANDSPECIMEN RADIOGRAPH 09/22/2008 History: Fluffy calcifications upper-outer right breast. Needle localization for a small cluster of faint calcifications inthe upper-outer right breast. The calcifications were localized mammographically. The overlying skin was cleansed. 1% lidocainebuffered with sodium bicarbonate was injected for superficial anesthesia. A 5cm localization needle was deployed. Positioning was confirmed mammographically and a small amount of methylene blue was injected.The wire was deployed and taped in place. A follow up two viewmammogram demonstrated the calcifications to be adjacent to the wire on the mediolateral view, not well seen on the CC view because of the faintnature of the calcifications. Films were labeled, printed and sent to in the Operating Room. A specimen radiograph was obtained. This demonstrated the localization wire as well as the calcifications surrounding the wire. Findings were called to the Dr. Valerio inthe Operating room. Impression: Needle localization for a tiny cluster of faint calcifications inthe upper-outer right breast. Pathology pending. Dictated by: VIVIANA REHMAN Electronically signed by: VIVIANA REHMAN 09/23/2008 16:41 Transcribed: 09/22/2008 22:01 AMK us Valeria Valerio MD MAMMO ORDERABLES Final Resul t * XR CONSULTATION (09/22/2008 12:20 PM [employer]) 09/22/2008 12:2 0 PM [employer] Narrative INTERFACE SYSTEM - 10/06/2008 10:38 AM [employer] [place] [id number] [place], [place] [address] Admit Date: 09/22/2008 BRIGIDA ORDAZ Sex: F Admit Prov: VALERIA VALERIO Date: 1950 Primary Care Prov: CMRN: [id number] Room: [facility] SSN: [id number] IMAGING SERVICES Ordering Prov: VALERIA VALERIO Accession Number: [id number] Addendum Pathology indicates atypical lobular hyperplasia with benign fibrocystic changes. Imaging findings are concordant. This is a false positive. Recommend followup with Dr. Valerio. Dictated by: VIVIANA REHMAN Electronically signed by: VIVIANA REHMAN 10/06/2008 10:38 Transcribed: 10/06/2008 10:19 AMK Interpretation RIGHT BREAST NEEDLE LOCALIZATION, FOLLOW UP 2 VIEW MAMMOGRAM AND SPECIMEN RADIOGRAPH 09/22/2008 History: Fluffy calcifications upper-outer right breast. Needle localization for a small cluster of faint calcifications in the upper-outer right breast. The calcifications were localized mammographically. The overlying skin was cleansed. 1% lidocaine buffered with sodium bicarbonate was injected for superficial anesthesia. A 5 cm localization needle was deployed. Positioning was confirmed mammographically and a small amount of methylene blue was injected. The wire was deployed and taped in place. A follow up two view mammogram demonstrated the calcifications to be adjacent to the wire on the mediolateral view, not well seen on the CC view because of the faint nature of the calcifications. Films were labeled, printed and sent to Dr. Valerio in the Operating Room. A specimen radiograph was obtained. This demonstrated the localization wire as well as the calcifications surrounding the wire. Findings were called to the Dr. Valerio in the Operating room. Impression: Needle localization for a tiny cluster of faint calcifications in the upper-outer right breast. Pathology pending. Report revised on 10/06/2008 10:38:15 AM by VIVIANA REHMAN Dictated by: VIVIANA REHMAN Electronically signed by: VIVIANA REHMAN 09/23/2008 16:41 Transcribed: 09/22/2008 22:01 AMK Procedure Note Viviana Rehman - 10/06/2008 [place] [address] [place], [place] [address] Admit Date: 09/22/2008 BRIGIDA ORDAZ Sex: F Admit Prov: VALERIA VALERIO Date: 1950 Primary Care Prov: CMRN: [id number] Room: [facility] SSN: [id number] IMAGING SERVICES Ordering Prov: VALERIA VALERIO Addendum Pathology indicates atypical lobular hyperplasia with benignfibrocystic changes. Imaging findings are concordant. This is a false positive. Recommend followup with Dr. Valerio. Dictated by: VIVIANA REHMAN Electronically signed by: VIVIANA REHMAN 10/06/2008 10:38 Transcribed: 10/06/2008 10:19 AMK Interpretation RIGHT BREAST NEEDLE LOCALIZATION, FOLLOW UP 2 VIEW MAMMOGRAM ANDSPECIMEN RADIOGRAPH 09/22/2008 History: Fluffy calcifications upper-outer right breast. Needle localization for a small cluster of faint calcifications inthe upper-outer right breast. The calcifications were localized mammographically. The overlying skin was cleansed. 1% lidocainebuffered with sodium bicarbonate was injected for superficial anesthesia. A 5cm localization needle was deployed. Positioning was confirmed mammographically and a small amount of methylene blue was injected.The wire was deployed and taped in place. A follow up two viewmammogram demonstrated the calcifications to be adjacent to the wire on the mediolateral view, not well seen on the CC view because of the faintnature of the calcifications. Films were labeled, printed and sent to in the Operating Room. A specimen radiograph was obtained. This demonstrated the localization wire as well as the calcifications surrounding the wire. Findings were called to the Dr. Valerio inthe Operating room. Impression: Needle localization for a tiny cluster of faint calcifications inthe upper-outer right breast. Pathology pending. Report revised on 10/06/2008 10:38:15 AM by VIVIANA REHMAN Dictated by: VIVIANA REHMAN Electronically signed by: VIVIANA REHMAN 09/23/2008 16:41 Transcribed: 09/22/2008 22:01 AMK us Valeria Valerio MD DIAGNOSTIC IMAGING ORDERABLE S Edited INTERFACE SYSTEM Refer to clinic/hospital department * MAMMO DIGITAL DIAG UNI RIGHT (09/22/2008 12:20 PM [employer] [employer]) Anatomical Region Laterality Modality Breast Right Other 09/22/2008 12:2 0 PM [employer] Narrative 09/23/2008 4:42 PM [employer] [place] [id number] [place], [place] [address] Admit Date: 09/22/2008 BRIGIDA ORDAZ Sex: F Admit Prov: VALERIA VALERIO Date: 1950 Primary Care Prov: CMRN: [id number] [facility] [address] [place] [address] IMAGING SERVICES Ordering Prov: VALERIA VALERIO Accession Number: [id number] Interpretation RIGHT BREAST NEEDLE LOCALIZATION, FOLLOW UP 2 VIEW MAMMOGRAM AND SPECIMEN RADIOGRAPH 09/22/2008 History: Fluffy calcifications upper-outer right breast. Needle localization for a small cluster of faint calcifications in the upper-outer right breast. The calcifications were localized mammographically. The overlying skin was cleansed. 1% lidocaine buffered with sodium bicarbonate was injected for superficial anesthesia. A 5 cm localization needle was deployed. Positioning was confirmed mammographically and a small amount of methylene blue was injected. The wire was deployed and taped in place. A follow up two view mammogram demonstrated the calcifications to be adjacent to the wire on the mediolateral view, not well seen on the CC view because of the faint nature of the calcifications. Films were labeled, printed and sent to Dr. Valerio in the Operating Room. A specimen radiograph was obtained. This demonstrated the localization wire as well as the calcifications surrounding the wire. Findings were called to the Dr. Valerio in the Operating room. Impression: Needle localization for a tiny cluster of faint calcifications in the upper-outer right breast. Pathology pending. Assessment BIRADS: Post procedure mammograms for marker placement Recommendation: No recommendation required Dictated by: VIVIANA REHMAN Electronically signed by: VIVIANA REHMAN 09/23/2008 16:41 Transcribed: 09/22/2008 22:01 AMK Procedure Note Viviana Rehman - 09/23/2008 [place] [id number] [place], [place] [address] Admit Date: 09/22/2008 BRIGIDA ORDAZ Sex: F Admit Prov: TEODORO VALERIA Date: 1950 Primary Care Prov: CMRN: [id number] Room: [facility] SSN: [id number] IMAGING SERVICES Ordering Prov: KINDRASHALOM VALERIA Interpretation RIGHT BREAST NEEDLE LOCALIZATION, FOLLOW UP 2 VIEW MAMMOGRAM ANDSPECIMEN RADIOGRAPH 09/22/2008 History: Fluffy calcifications upper-outer right breast. Needle localization for a small cluster of faint calcifications inthe upper-outer right breast. The calcifications were localized mammographically. The overlying skin was cleansed. 1% lidocainebuffered with sodium bicarbonate was injected for superficial anesthesia. A 5cm localization needle was deployed. Positioning was confirmed mammographically and a small amount of methylene blue was injected.The wire was deployed and taped in place. A follow up two viewmammogram demonstrated the calcifications to be adjacent to the wire on the mediolateral view, not well seen on the CC view because of the faintnature of the calcifications. Films were labeled, printed and sent to in the Operating Room. A specimen radiograph was obtained. This demonstrated the localization wire as well as the calcifications surrounding the wire. Findings were called to the Dr. Valerio inthe Operating room. Impression: Needle localization for a tiny cluster of faint calcifications inthe upper-outer right breast. Pathology pending. Assessment BIRADS: Post procedure mammograms for marker placement Recommendation: No recommendation required Dictated by: VIVIANA REHMAN Electronically signed by: VIVIANA REHMAN 09/23/2008 16:41 Transcribed: 09/22/2008 22:01 AMK us Valeria Valerio MD MAMMO ORDERABLES Final Resul t * MAMMO NEEDLE LOC EA LESION RT (09/22/2008 12:20 PM [employer]) Anatomical Region Laterality Modality Breast Right Other 09/22/2008 12:2 0 PM [employer] Narrative 09/23/2008 4:42 PM [employer] [place] [address] [place], [place] [address] Admit Date: 09/22/2008 BRIGIDA ORDAZ Sex: F Admit Prov: VALERIA VALERIO Date: 1950 Primary Care Prov: CMRN: [id number] [id number] [facility] Ordering Prov: VALERIA VALERIO Accession Number: [id number] Interpretation RIGHT BREAST NEEDLE LOCALIZATION, FOLLOW UP 2 VIEW MAMMOGRAM AND SPECIMEN RADIOGRAPH 09/22/2008 History: Fluffy calcifications upper-outer right breast. Needle localization for a small cluster of faint calcifications in the upper-outer right breast. The calcifications were localized mammographically. The overlying skin was cleansed. 1% lidocaine buffered with sodium bicarbonate was injected for superficial anesthesia. A 5 cm localization needle was deployed. Positioning was confirmed mammographically and a small amount of methylene blue was injected. The wire was deployed and taped in place. A follow up two view mammogram demonstrated the calcifications to be adjacent to the wire on the mediolateral view, not well seen on the CC view because of the faint nature of the calcifications. Films were labeled, printed and sent to Dr. Valerio in the Operating Room. A specimen radiograph was obtained. This demonstrated the localization wire as well as the calcifications surrounding the wire. Findings were called to the Dr. Valerio in the Operating room. Impression: Needle localization for a tiny cluster of faint calcifications in the upper-outer right breast. Pathology pending. Assessment BIRADS: Post procedure mammograms for marker placement Recommendation: No recommendation required Dictated by: VIVIANA REHMAN Electronically signed by: VIVIANA REHMAN 09/23/2008 16:41 Transcribed: 09/22/2008 22:01 AMK Procedure Note Viviana Rehman - 09/23/[address] [address] Admit Date: 09/22/2008 BRIGIDA ORDAZ Sex: F Admit Prov: VALERIA VALERIO Date: 1950 Primary Care Prov: CMRN: [id number] Room: [facility] SSN: [id number] IMAGING SERVICES Ordering Prov: VALERIA VALERIO Interpretation RIGHT BREAST NEEDLE LOCALIZATION, FOLLOW UP 2 VIEW MAMMOGRAM ANDSPECIMEN RADIOGRAPH 09/22/2008 History: Fluffy calcifications upper-outer right breast. Needle localization for a small cluster of faint calcifications inthe upper-outer right breast. The calcifications were localized mammographically. The overlying skin was cleansed. 1% lidocainebuffered with sodium bicarbonate was injected for superficial anesthesia. A 5cm localization needle was deployed. Positioning was confirmed mammographically and a small amount of methylene blue was injected.The wire was deployed and taped in place. A follow up two viewmammogram demonstrated the calcifications to be adjacent to the wire on the mediolateral view, not well seen on the CC view because of the faintnature of the calcifications. Films were labeled, printed and sent to in the Operating Room. A specimen radiograph was obtained. This demonstrated the localization wire as well as the calcifications surrounding the wire. Findings were called to the Dr. Valerio inthe Operating room. Impression: Needle localization for a tiny cluster of faint calcifications inthe upper-outer right breast. Pathology pending. Assessment BIRADS: Post procedure mammograms for marker placement Recommendation: No recommendation required Dictated by: VIVIANA REHMAN Electronically signed by: VIVIANA REHMAN 09/23/2008 16:41 Transcribed: 09/22/2008 22:01 AMK us Valeria Valerio MD MAMMO ORDERABLES Final Resul t * BASIC METABOLIC PANEL (09/22/2008 10:55 AM [employer] [employer]) GLUCOSE 97 65 - 99 mg/dL [facility] SODIUM 136 135 - 145 mmol/L [facility] CALCIUM 9.5 8.6 - 10.2 mg/dL [facility] CO2 23 22 - 30 mmol/L [facility] POTASSIUM 3.9 3.5 - 4.9 mmol/L [facility] BUN 10 6 - 20 mg/dL [facility] CREATININE 0.61 0.51 - 0.95 mg/dL [facility] CHLORIDE 101 96 - 108 mmol/L [facility] GFR, >60 >=60 mL/min/1.7 sq meter [facility] GFR >60 >=60 mL/min/1.7 sq meter [facility] Comment: Modification of Diet in Renal Disease (MDRD) study formula. Estimated GFR rate interpretative information for both Americans and non- Americans is available on the [facility] Intranet at: [email or web address] Select: Lab Policies and Procedures Select: Reference Ranges - GFR Blood specimen (specimen) 09/22/2008 10:55 AM [employer] 09/22/2008 11:09 AM [employer] Valeria Valerio MD CHEMISTRY ORDERABLES Edited Performing Organization Address [facility] de Phone Number INTERFACE SYSTEM Refer to clinic/hospital department [facility] CLIA# [id number] [address] [place] [address] * HEMOGLOBIN AND HEMATOCRIT (09/22/2008 10:55 AM [employer]) HEMOGLOBIN 13.8 11.8 - 14.8 g/dL [facility] HEMATOCRIT 40.9 35.5 - 44.0 % [facility] Blood specimen (specimen) 09/22/2008 10:55 AM [employer] 09/22/2008 11:09 AM [employer] Narrative INTERFACE SYSTEM - 09/22/2008 11:33 AM [employer] [id number] Valeria Valerio MD HEMATOLOGY ORDERABLES Final Result Performing Organization Address [facility] de Phone Number INTERFACE SYSTEM Refer to clinic/hospital department [facility] CLIA# [id number] [address] [place] [address] documented in this encounter Visit Diagnoses Not on filedocumented in this encounter Care Teams [employer] Ii Assembler Relationship Specialty Start Date End Date Cheryl Shukla MD PCP - General Internal Medicine 08/21/12 documented as of this encounter
--- OUTSIDE RECORDS SUMMARY | 2024-12-30 14:18 | XMS_ITS | Clinical Summary ---
Author Organization [facility] Administrative Offices Address [address] [place] [address] Care Team Providers Care Volunteer Services Director Name Role Phone Cheryl Shukla MD Primary Care Provider [phone] Allergies Active Allergy Reactions Criticality Noted Date Comments Amlodipine Other (See Comments) 09/20/2016 Light head Celecoxib Hives,Swelling High 08/07/2009 Shellfish Containing Products Other (See Comments) 08/21/2012 Allergy tested Sulfa (Sulfonamide Antibiotics) Itching,Swelling Low 08/07/2009 Medications ESOMEPRAZOLE MAGNESIUM (NEXIUM ORAL)Indications: Atypical ductal hyperplasia of breast Take by mouth. Active FLUORIDE ION/MULTIVITAMINS (MULTI-VITAMIN PO)Indications:At ypical ductal hyperplasia of breast Take by mouth. Active CALCIUM ORAL Take by mouth. Active hydrochlorothiazi de 25 mg Oral tabletIndications :Atypical ductal hyperplasia of breast Take 25 mg by mouth daily. Active metoprolol succinate (TOPROL XL) 25 mg Extended Release 24 hour tablet Take 25 mg by mouth daily. Active Irbesartan (AVAPRO) 300 mg tablet Take 300 mg by mouth daily at bedtime. Active levothyroxine 125 mcg tablet Take 125 mcg by mouth daily rn residential. Active dexlansoprazole (DEXILANT) 60 mg Delayed Release capsule Take 60 mg by mouth daily. Active LIVALO 2 mg Tablet 07/27/2016 Active oxybutynin chloride (DITROPAN) 5 mg tablet 08/26/2016 Active MOXIFLOXICIN 0.5 % solution 06/13/2016 Active Active Problems Patient Care Coordination No te Formatting of this note migh t be different from the original. 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 08/08/2009 Family History Medical History Relation Name Comments Heart Disease Father Relation Name Status Comments Father Social History Tobacco Use Types Packs/Day Years Used Date Smoking Tobacco: Never Smokeless Tobacco: Never Tobacco Cessation:Counseling Given: No Alcohol Use Standard Drinks/Week Comments No 0 (1 standard drink = 0.6 oz pur e alcohol) Comments No Sex and Gender Information Value Date Recorded Sex Assigned at Not on file Legal Sex Female 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 Gender Identity Not on file Sexual Orientation Not on file Occupation Industry Job Start Date Job End Date Not on file Not on file Not on file Not on file Last Filed Vital Signs Vital Sign Reading Time Taken Comments Blood Pressure 138/76 09/29/2017 11:22 AM OFFICE MACHINE INSTALLER Pulse 74 09/20/2016 12:41 PM OFFICE MACHINE INSTALLER Temperature - - Respiratory Rate - - Oxygen Saturation - - Inhaled Oxygen Concentration - - Weight 108.1 kg (238 lb 5.1 oz) 017 11:22 AM OFFICE MACHINE INSTALLER Height 167.6 cm (5' 6 ) 09/29/2017 11:2 2 AM OFFICE MACHINE INSTALLER Body Mass Index 38.47 09/29/2017 11:22 AM OFFICE MACHINE INSTALLER Plan of Treatment Health Maintenance Due Date Last Done Comments COLORECTAL SCREENING 1996 Colorectal Cancer Screening 1996 FIT-DNA Q 3 years 1996 FIT/FOBT Q 1 year 1996 Flex Sig/CT Colonography Q 5 years 1996 ZOSTER VACCINE (1 of 2) 2001 DTAP/TDAP/TD VACCINES (2 - T d or Tdap) 10/20/2012 10/20/2002 OSTEOPOROSIS SCREENING 2016 PNEUMOCOCCAL VACCINE 50+ YEA RS (2 of 2 - PPSV23) 09/17/2018 09/17/2017 BREAST CANCER SCREENING 09/29/2018 09/29/20 17, 09/20/2016, 09/18/2015, Additional history exists INFLUENZA VACCINE (#1) 2024 7, 09/05/2016, 08/30/2015, Additional history exists RSV VACCINE (60+ or ) (1 - 1-dose 75+ series) 2026 Procedures Procedure Name Priority Date/Time Associated Diagnosis Comments MAMMO 3D CORNELL SCREEN BILAT W OR WO CAD Routine 09/29/2017 11:01 AM OFFICE MACHINE INSTALLER Visit for screening mammogram from Last 3 Months or Most Recently Relevant to Health Maintenance Results * MAMMO DIG SCREEN BILAT W 3D CORNELL (09/29/2017 11:01 AM OFFICE MACHINE INSTALLER) Anatomical Region Laterality Modality Breast Bilateral Mammography 09/29/2017 11:0 1 AM OFFICE MACHINE INSTALLER Impressions 09/30/2017 11:11 AM OFFICE MACHINE INSTALLER IMPRESSION: No mammographic evidence of malignancy. RECOMMENDATIONS: Routine screening mammogram in one year. Dictated from: Ange Cuevas 09/30/2017 11:11 AM OFFICE MACHINE INSTALLER BILATERAL FULL-FIELD DIGITAL SCREENING MAMMOGRAM WITH CAD WITH 3D TOMOSYNTHESIS DATE: 09/29/2017 11:01 AM HISTORY: Routine screening. TECHNIQUE: Full-field digital craniocaudal and mediolateral oblique projections of both breasts were obtained. Low-dose full-field digital breast tomosynthesis examination was performed with 2D and 3D acquisitions. Examination is read in conjunction with computer aided detection. COMPARISON: July 2011 through September 2016 BREAST COMPOSITION: Scattered fibroglandular densities. FINDINGS: No suspicious mass, suspicious microcalcifications, or architectural distortion in either breast is identified. Since the prior study, there has been no significant interval change. The computer aided diagnosis detects no significant abnormality. OVERALL ASSESSMENT: BI-RADS Category 1 - Negative. Procedure Note Candelario Ramsay MD - 09/30/2017 BILATERAL FULL-FIELD DIGITAL SCREENING MAMMOGRAM WITH CAD WITH 3D TOMOSYNTHESIS DATE: 09/29/2017 11:01 AM HISTORY: Routine screening. TECHNIQUE: Full-field digital craniocaudal and mediolateral oblique projections of both breasts were obtained. Low-dose full-field digital breast tomosynthesis examination was performed with 2D and 3D acquisitions. Examination is read in conjunction with computer aided detection. COMPARISON: July 2011 september BREAST COMPOSITION: Scattered fibroglandular densities. FINDINGS: No suspicious mass, suspicious microcalcifications, or architectural distortion in either breast is identified. Since the prior study, there has been no significant interval change. The computer aided diagnosis detects no significant abnormality. OVERALL ASSESSMENT: BI-RADS Category 1 - Negative. IMPRESSION: No mammographic evidence of malignancy. RECOMMENDATIONS: Routine screening mammogram in one year. Dictated from: Ange Cuevas Valeria Bush MD MAMMO ORDERABLES Final Resul t from Last 3 Months or Most Recently Relevant to Health Maintenance Insurance Care Teams Volunteer Services Director Relationship Specialty Start Date End Date Cheryl Shukla MD PCP - General Internal Medicine 08/21/12
--- OUTSIDE RECORDS SUMMARY | 2024-12-30 14:18 | XMS_ITS | Clinical Summary ---
Author Organization [facility] Address [address] [place] [address] Phone Care Team Providers Care Cracker Off Name Role Phone MILENA QUIROGA MD Unavailable [phone] MABEL MULLINS Primary Care Provider [phone] Reason for Visit and Chief Complaint The Chief Complaint is: Right knee Gelsyn 3 2nd injection Problems Includes: Problems addressed during this encounter and other active Problems Current Visit Onset Date Resolved Date Provider Conditio n Status Osteoarthritis Localized Primary Knee Right 09/27/2022 SHAQ Banegas Active Last Documented On 2 10:05AM ; [facility] History of Prior Surgery: Stent 04/12/2014 LEAH BRUNO RN JN Active Last Documented On 4 8:44AM ; [facility] Note: Unchanged History of Hysterectomy 04/05/2013 MAY Landeros RN JN Active Last Documented On 3 1:24PM ; [facility] Note: Unchanged Past Visits Onset Date Resolved Date Provider Condition Status Joint Pain in the Right Knee on the Inner Side 06/14/2022 SHAQ Banegas Active Last Documented On 2 1:24PM ; [facility] Anemia 04/16/2015 MAY BRUNO RN JN Active Last Documented On 5 1:16PM ; [facility] Colonic Diverticulosis 04/16/2015 MAY BRUNO RN JN [place] Active Last Documented On 5 1:15PM ; [facility] URGE INCONTINENCE 03/07/2011 CHRISSIE ROSADO M.D. Active Last Documented On 1 10:51AM ; [facility] Breast Fibroadenosis Chronic 01/25/2010 MAY BRUNO RN WHN P BC Active Last Documented On 04/13/2015 8:29AM ; [facility] Note: pt s/p removal and all mammogram p erformed by Dr. Clifford at [facility] CYST OF THYROID 01/25/2010 CHRISSIE RODRIGUEZ M.D. 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 This was the second injection in the series. She will follow up next week for the third and final injection in the series. - Last Documented On 11/14/2022 3:16PM ; [facility] Instructions to patient Intervention and counseling on cessation of tobacco use Last Documented On 3 3:14PM ; [facility] Assessments Includes: Assessments from this encounter Findings - [M17.11 - Unilateral primary osteoarthritis, right knee] Localized primary osteoarthritis of right knee - Last Documented On 11/14/2022 3:16PM ; [facility] Instructions Includes: Instructions from this encounter Instructions to patient Intervention and counseling on cessation of tobacco use Last Documented On 3 3:14PM ; [facility] Medical Equipment - Implanted Devices Includes: Current [...] On 06/14/2022 1:28PM By Ira ALVA ; [facility] hydrALAZINE HCl 100 MG Oral Tablet 06/14/2022 Provid er: Diagnosis: Last Documented On 06/14/2022 1:15PM By MARCY BHAT LPN ; [facility] Gabapentin 100 MG Oral Capsule 06/14/2022 Provider: Diagnosis: Last Documented On 06/14/2022 1:15PM By MARCY BHAT LPN ; [facility] Valsartan-hydroCHLOROthiazide 320-25 MG Oral Tablet Provider: Diagnosis: Last Documented On 06/14/2022 1:12PM By MARCY BHAT LPN ; [facility] NexIUM 40 MG Oral Capsule Delayed Release 06/14/2022 Provider: Diagnosis: Last Documented On 06/14/2022 1:12PM By MARCY BHAT LPN ; [facility] Furosemide 40 MG Oral Tablet 06/14/2022 Provider: Diagnosis: Last Documented On 06/14/2022 1:11PM By MARCY BHAT LPN ; [facility] Amiodarone HCl 200 MG Oral Tablet 06/14/2022 Provide r: Diagnosis: Last Documented On 06/14/2022 1:10PM By MARCY BHAT LPN ; [facility] Xarelto 20 MG Oral Tablet 06/14/2022 Provider: Diagnosis: Last Documented On 06/14/2022 1:10PM By MARCY BHAT LPN ; [facility] Calcium 600 MG Tablet 05/02/2016 Provider: Diagnosis: Last Documented On 05/02/2016 2:58PM By CLAUDIA REYES MA ; [facility] Multi Vitamin Daily Tablet 05/02/2016 Provider: Diagnosis: Last Documented On 05/02/2016 2:58PM By CLAUDIA REYES MA ; [facility] Irbesartan 300 MG Tablet 05/02/2016 Provider: Diagnosis: Last Documented On 05/02/2016 2:58PM By CLAUDIA REYES MA ; [facility] Metoprolol Succinate ER 25 MG Tablet Extended Re lease 24 Hour 05/02/2016 Provider: Diagnosis: Last Documented On 05/02/2016 2:57PM By CLAUDIA REYES MA ; [facility] Levothyroxine Sodium 175 MCG Tablet 05/02/2016 Provi blu: Diagnosis: Last Documented On 05/02/2016 2:57PM By CLAUDIA REYES MA ; [facility] oxyBUTYnin Chloride 5 MG OR TABS 04/12/2014 Provider : Diagnosis: Last Documented On 04/12/2014 8:27AM By AIRAM SARAVIA ; [facility] Livalo 1 MG OR TABS 04/12/2014 Provider: Diagnosis: Last Documented On 04/12/2014 8:27AM By AIRAM SARAVIA ; [facility] Past Medications on file Terconazole 0.8% VA CREA 04/05/2013 - 04/14/2013 Provider: MAY BRUNO RN [facility] Diagnosis: CANDIDAL VULVOVA GINITIS 1 PAULA IN VAGINA EVERY NIGHT X 3 APPLY BID TO EXTERNAL AREA Last Documented On 3 1:26PM By MAY BRUNO JN- ; [facility] Diflucan 150 MG OR TABS 03/13/2012 - 03/14/2012 Provider: CHRISSIE ROSADO M.D. Diagnosis: CANDIDAL VULVOVA GINITIS 1 po x 1 day Last Documented On 2 12:45PM By DR. CHRISSIE ROSADO ; [facility] oxyBUTYnin Chloride 5 MG OR TABS 07/01/2011 - 12/28/2011 Provider: DARSHANA KAPOOR MD Diagnosis: Last Documented On 1 12:11AM By DARSHANA TORRES MD ; [facility] Aciphex 20 MG OR TBEC 05/27/2011 - 08/25/2011 Provider : MERY KAUFFMAN PA-C Diagnosis: Last Documented On 1 4:37PM By MERY KAUFFMAN PA-C ; [facility] Lisinopril-hydroCHLOROthiazi de 20-12.5 MG TABS 04/29/2011 - 08/27/2011 Provider: STEVEN FLORES PA-C Diagnosis: 1 qd #30 Last Documented On 04/29/2011 12:46PM By STEVEN FLORES PA-C ; [facility] Carbinoxamine Maleate 4 MG OR TABS 03/29/2011 - 05/28/2011 Provider: DARSHANA TORRES MD Diagnosis: ALLERGIC RHINITI S NOS Last Documented On 03/29/2011 1:37PM By Rosy ALVA ; [facility] Oxytrol 3.9 MG/24HR TD PTTW 03/07/2011 - 05/06/2011 Provider: CHRISSIE MILLER ON Ubaldo Diagnosis: URGE INCONTINENC E change patch q 72 hrs Last Documented On 1 10:56AM By DR. CHRISSIE ROSADO ; [facility] NexIUM 40 MG OR CPDR 03/01/2011 - 03/31/2011 Provider: STEVEN FLORES PA-C Diagnosis: Last Documented On 03/01/2011 9:52AM By STEVEN FLORES PA-C ; [facility] Flonase 50 MCG/ACT NA SUSP 11/15/2010 - 12/15/2010 Provider: JULES Banegas Diagnosis: ACUTE SINUSITIS NOS 2 sprays each nostril qd Last Documented On 11/15/2010 3:45PM By JULES MCCARTHY PA-C ; [facility] Zithromax Z-Kash 250 MG OR TABS 11/15/2010 - 11/20/2010 Provider: JULES Banegas Diagnosis: ACUTE SINUSITIS NOS Last Documented On 11/15/2010 3:12PM By JULES MCCARTHY PA-C ; [facility] Cefprozil 500 MG OR TABS 10/25/2010 - 11/04/2010 Provi blu: STEVEN FLORES PA-C Diagnosis: Last Documented On 10/25/2010 10:11AM By STEVEN FLORES PA-C ; [facility] Augmentin 875-125 MG OR TABS 09/11/2010 - 09/21/2010 P rovider: STEVEN FLORES PA-C Diagnosis: Last Documented On 09/11/2010 11:00AM By STEVEN FLORES PA-C ; [facility] Valtrex 1 GM OR TABS 08/20/2010 - 08/21/2010 Provider: STEVEN FLORES PA-C Diagnosis: HERPES SIMPLEX N OS 2 tabs po now, repeat in 12 hours Last Documented On 08/20/2010 5:51PM By STEVEN FLORES PA-C ; [facility] Levaquin 750 MG OR TABS 08/20/2010 - 08/25/2010 Provid er: STEVEN FLORES PA-C Diagnosis: BRONCHITIS NOS Last Documented On 08/20/2010 5:51PM By STEVEN FLORES PA-C ; [facility] Tussionex Pennkinetic ER 10-8 MG/5ML OR LQCR 08/20/2010 - 09/19/2010 Provider: STEVEN Banegas Diagnosis: BRONCHITIS NOS one tsp po BID PRN Last Documented On 08/20/2010 5:51PM By STEVEN FLORES PA-C ; [facility] Simvastatin 20 MG OR TABS 06/27/2010 - 12/24/2010 Prov ider: STEVEN FLORES PA-C Diagnosis: Last Documented On 06/27/2010 12:04PM By STEVEN FLORES PA-C ; [facility] Flonase 50 MCG/ACT NA SUSP 07/21/2009 - 08/20/2009 Pro vider: TANNER MYERS PA-C Diagnosis: 2 sprays q nare qd Last Documented On 07/21/2009 1:27PM By TANNER MYERS ; [facility] [place] 180 MG OR TABS 07/21/2009 - 08/20/2009 Provide r: TANNER MYERS PA-C Diagnosis: Last Documented On 07/21/2009 1:27PM By TANNER MYERS ; [facility] Protonix 40 MG OR TBEC 07/07/2009 - 07/17/2009 Provider: DARSHANA KAPOOR MD Diagnosis: REFLUX ESOPHAGIT IS Last Documented On 9 9:04AM By DARSHANA TORRES MD ; [facility] Medrol (Kash) 4 MG OR TABS 07/07/2009 - 07/13/2009 Prov ider: DARSHANA TORRES MD Diagnosis: COUGH as directed Last Documented On 9 9:04AM By DARSHANA TORRES MD ; [facility] Lisinopril-hydroCHLOROthiazi de 20-12.5 MG TABS 07/07/2009 - 08/06/2009 Provider: DARSHANA HEATON M.D. Diagnosis: Last Documented On 07/07/2009 8:34AM By Rosy ALVA ; [facility] Xyzal 5 MG OR TABS 06/19/2009 - 2009 Provider: STEVEN FLORES PA-C Diagnosis: DRUG ALLERGY NEC Last Documented On 06/19/2009 9:49PM By STEVEN FLORES PA-C ; [facility] [place] 180 MG OR TABS 06/09/2009 - 12/06/2009 Provide r: STEVEN FLORES PA-C Diagnosis: Last Documented On 06/09/2009 12:56PM By STEVEN FLORES PA-C ; [facility] oxyBUTYnin Chloride 5 MG OR TABS 06/03/2009 - 07/03/20 Provider: Diagnosis: Last Documented On 07/05/2009 11:25AM By Jonny Lamb ; [facility] Advair Diskus 250-50 MCG/DOSE IN MISC 05/13/2009 - 06/10/2009 Provider: TANNER GRIFFITH PA-C Diagnosis: COUGH Last Documented On 05/13/2009 9:31AM By TANNER MYERS ; [facility] Ventolin HFA 108 (90 Base) MCG/ACT IN AERS 05/13/2009 - 06/12/2009 Provider: TANNER GRIFFITH PA-C Diagnosis: COUGH 2 puffs q 4-6 hours prn. Last Documented On 05/13/2009 9:31AM By TANNER MYERS ; [facility] Singulair 10 MG OR TABS 05/05/2009 - 05/19/2009 Provider: STEVEN Banegas Diagnosis: PNEUMONIA, ORGAN ISM NOS Last Documented On 05/05/2009 4:06PM By STEVEN FLORES PA-C ; [facility] Advair Diskus 100-50 MCG/DOSE IN MISC 04/20/2009 - 05/18/2009 Provider: STEVEN Banegas Diagnosis: BRONCHITIS NOS one puff twice a day Last Documented On 04/20/2009 9:43AM By STEVEN FLORES PA-C ; [facility] predniSONE 20 MG OR TABS 04/20/2009 - 05/02/2009 Provi blu: STEVEN FLORES PA-C Diagnosis: BRONCHITIS NOS 3 x 3 d, 2 x 3d, 1x3d, 1/2 x 3d then d/c Last Documented On 04/20/2009 9:43AM By STEVEN FLORES PA-C ; [facility] Tussionex Pennkinetic ER 10-8 MG/5ML OR LQCR 04/20/2009 - 05/20/2009 Provider: STEVEN Banegas Diagnosis: BRONCHITIS NOS one tsp twice a day PRN Last Documented On 04/20/2009 9:43AM By STEVEN FLORES PA-C ; [facility] Proventil HFA 108 (90 Base) MCG/ACT IN AERS 04/10/2009 - 05/10/2009 Provider: STEVEN [place] Diagnosis: ACUTE BRONCHITIS 2 puffs every 4-6 hours PRN Last Documented On 04/10/2009 11:51AM By STEVEN FLORES PA-C ; [facility] Tessalon Perles 100 MG OR CAPS 04/10/2009 - 05/10/2009 Provider: STEVEN Banegas Diagnosis: ACUTE BRONCHITIS 1-2 tabs tid PRN Last Documented On 04/10/2009 11:51AM By STEVEN FLORES PA-C ; [facility] Zithromax Z-Kash 250 MG OR TABS 04/10/2009 - 04/15/2009 Provider: STEVEN Banegas Diagnosis: ACUTE BRONCHITIS as directed Last Documented On 04/10/2009 11:51AM By STEVEN FLORES PA-C ; [facility] Simvastatin 20 MG OR TABS 12/30/2008 - 06/28/2009 Prov ider: Diagnosis: Last Documented On 02/09/2009 2:46PM By RACQUEL JIMENEZ ; [facility] Medications Administered Includes: Administered Medications from this encounter No Administered Medications Recorded Vital Signs Includes: Vital Signs from this encounter Vital Name 11/14/2022 03:11P Blood Pressure Sitting (mmHg) 134/82 Pulse Rate-Sitting (bpm) 78 Height (in) 66.5 Last Documented: On 11/14/2022 3:11PM ; [facility] Results Includes: Results discussed during this encounter No Results Recorded For Specified Dates History of Present Illness Includes: History of Present Illness from this encounter HPI BRIGIDA PRESCOTT is a 72 year old female. - Allergy list reviewed - Medication list reviewed Brigida follows up to have her 2nd injection of Gelsyn in her right knee. She describes only a few weeks of relief from her recent steroid injection. She denies any new symptoms. She denies any new or subsequent injury after last visit. Symptoms are consistent with osteoarthritis of the right knee Social History Description Last Updated Tobacco non-user 06/14/2022 Last Documented On 3 3:11PM ; [facility] Personal history plans to retire 10/05 0 05/27/2017 Last Documented On 3 3:11PM ; [facility] Alcohol use: 2 drinks or less per day RA RELY 05/27/2017 Last Documented On 3 3:11PM ; [facility] Education history 05/27/2017 Last Documented On 3 3:11PM ; [facility] In monogamous relationship 05/27/2017 Last Documented On 3 3:11PM ; [facility] Marital history 05/27/2017 Last Documented On 3 3:11PM ; [facility] Non-smoker 05/27/2017 Last Documented On 3 3:11PM ; [facility] Sexually active 05/27/2017 Last Documented On 3 3:11PM ; [facility] Smoking status : Never smoker 05/27/2017 Last Documented On 3 3:11PM ; [facility] Social history unchanged 05/27/2017 Last Documented On 3 3:11PM ; [facility] Currently 05/02/2016 Last Documented On 3 3:11PM ; [facility] Educational level 05/02/2016 Last Documented On 3 3:11PM ; [facility] Not using alcohol 05/02/2016 Last Documented On 3 3:11PM ; [facility] Procedures and Surgical History Includes: Procedures from this encounter Procedures Code Diagnosis Performing Provider Service L ocation Service Date intervention and counseling on cessation of tobacco use 4000F Last Documented On 3 3:14PM ; [facility] use of tobacco assessment performed 1000F Last Documented On 3 3:11PM ; [facility] patient screened for future fall risk: documentation of any fall with injury in past year 1100F Last Documented On 3 3:11PM ; [facility] review of medications documented 1160F Last Documented On 3 3:11PM ; [facility] encouragement to exercise Last Documented On 3 3:14PM ; [facility] Informed consent obtained Ri s and benefits of a Corticosteroid injection/hyaluronic injection/aspiration are discussed in detail with the patient prior to administration. The patient was informed that an injection/aspiration consists of introducing a needle into the joint, muscle or under the skin and that the insertion of medication is for the purpose of treatment in their care. Preparation for the injection/aspiration includes cleaning the skin with an antiseptic. This may cause some skin irritation. There exists the possibility of certain complications from this injection/aspiration. These include pain, nerve damage, bleeding, swelling, allergic reaction to the medication or antiseptic, disability or even . The patient has been questioned regarding any allergies to the antiseptic or latex. The patient wishes to proceed with the injection/aspiration. Verbal consent obtained Last Documented On 3 3:14PM ; [facility] Sodium Hyaluronate, 5 mg for intra-articular injection The right knee was prepped in aseptic technique. I injected Gelsyn viscosupplementation into the right knee using a 22 gauge 1-2 needle. Patient tolerated the procedure well and post procedure showed no signs of complications. Patient will be seen for the continuation of the series [id number] Last Documented On 3 3:14PM ; [facility] Surgical History Last Updated Surgical / procedural histor y SINUS SURGERY 11/02 ~THYROIDECTOMY 08/2015 benign nodules 05/02/2016 Last Documented On 3 3:11PM ; [facility] Surgical history unchanged 04/13/2015 Last Documented On 3 3:11PM ; [facility] History of total abdominal hysterectomy 04/12/2014 Last Documented On 3 3:11PM ; [facility] History of hysterectomy 06/15/19962012 Last Documented On 3 3:11PM ; [facility] Bilateral salpingo-oophorectomy 03/11/20 Last Documented On 3 3:11PM ; [facility] Breast Biopsy 03/07/2011 Last Documented On 3 3:11PM ; [facility] Stent 01/24/2010 Last Documented On 3 3:11PM ; [facility] History of cholecystectomy 01/24/2010 Last Documented On 3 3:11PM ; [facility] Medical History Includes: Medical History addressed during this encounter Description Last Updated Last mammogram date: 08/201605/27/2017 Last Documented On 3 3:11PM ; [facility] PRIMARY CARE PROVIDER : Dr. Cheryl Shukla ~ DR. LISA JOY ~DR. VALERIO BREAST SPECIALIST 04/13/2015 Last Documented On 3 3:11PM ; [facility] A colonoscopy was performed 09/26/2009 Varinder BOWLES 201304/13/2015 Last Documented On 3 3:11PM ; [facility] History of a DEXA of the lateral lumbar spine was performed 06/11/2013 04/13/2015 Last Documented On 3 3:11PM ; [facility] History of Pap smear done 03/11/201203/21 Last Documented On 3 3:11PM ; [facility] History of screening mammogram was perfo rmed 05/06/2014 04/13/2015 Last Documented On 3 3:11PM ; [facility] GERD ~hyperilpidemia ~LISA/BS O DUB ENDOMETRIOSIS ~2004- Bladder ~ ~urge incont. ~status post anterior repair 04/12/2014 Last Documented On 3 3:11PM ; [facility] No recent change in medical history 03/21 Last Documented On 3 3:11PM ; [facility] Result: normal 04/12/2014 Last Documented On 3 3:11PM ; [facility] Result: normal 04/12/2014 Last Documented On 3 3:11PM ; [facility] Status post hysterectomy DUB 04/05/2013 Last Documented On 3 3:11PM ; [facility] History of menopause 04/05/2013 Last Documented On 3 3:11PM ; [facility] LMP: 06/15/1996 04/05/2013 Last Documented On 3 3:11PM ; [facility] Last pap smear date 03/11/2012 03/11/2012 Last Documented On 3 3:11PM ; [facility] History of benign essential hypertension 03/07/2011 Last Documented On 3 3:11PM ; [facility] Taking OTC medications including Mucinex 08/20/2010 Last Documented On 3 3:11PM ; [facility] History of chronic reflux esophagitis Last Documented On 3 3:11PM ; [facility] History of thyroid disorder THYROID NODU LES 01/25/2010 Last Documented On 3 3:11PM ; [facility] Para 2 01/25/2010 Last Documented On 3 3:11PM ; [facility] Vaginal delivery 01/25/2010 Last Documented On 3 3:11PM ; [facility] 2 living children 01/15/2010 Last Documented On 3 3:11PM ; [facility] A mammogram was performed 07/30/0701/15 Last Documented On 3 3:11PM ; [facility] 2 01/15/2010 Last Documented On 3 3:11PM ; [facility] Hypertension 01/15/2010 Last Documented On 3 3:11PM ; [facility] History of essential hypertension 2008 Last Documented On 3 3:11PM ; [facility] Taking medication - prescrip tion Patient currently taking Levaquin. Finished Zithromax. Tussionex helping. Proventil inhaler seems to help for a little while 04/20/2009 Last Documented On 3 3:11PM ; [facility] Taking OTC pain medication /fever. Using Tylenol 04/10/2009 Last Documented On 3 3:11PM ; [facility] History of hypertension 02/09/2009 Last Documented On 3 3:11PM ; [facility] Surgery GALBLADDER 1978 ~BLADDER 02/20 Last Documented On 3 3:11PM ; [facility] Family History Includes: Family History addressed during this encounter Description Last Updated Maternal history of diabetes mellitus Mo ther 05/02/2016 Last Documented On 3 3:11PM ; [facility] Family history of diabetes mellitus Moth er 04/13/2015 Last Documented On 3 3:11PM ; [facility] Family history of hypercholesterolemia F ather 04/13/2015 Last Documented On 3 3:11PM ; [facility] Family history of hypertension Patient, Father 04/13/2015 Last Documented On 3 3:11PM ; [facility] Family history unchanged 04/13/2015 Last Documented On 3 3:11PM ; [facility] Spouse name: DARLING 03/07/2011 Last Documented On 3 3:11PM ; [facility] First child named 01/25/2010 Last Documented On 3 3:11PM ; [facility] No family history of malignant female br east neoplasm 01/25/2010 Last Documented On 3 3:11PM ; [facility] No family history of malignant neoplasm of the large intestine 01/25/2010 Last Documented On 3 3:11PM ; [facility] No family history of malignant neoplasm of the ovary 01/25/2010 Last Documented On 3 3:11PM ; [facility] No family history of uterine cancer 05/2010 Last Documented On 3 3:11PM ; [facility] Second child named 01/25/2010 Last Documented On 3 3:11PM ; [facility] Family history of Diabetes (m) 0 Last Documented On 3 3:11PM ; [facility] Family medical history of high blood pre ssure &hyperlipidemia(F) 01/15/2010 Last Documented On 3 3:11PM ; [facility] Brother BLOCKED ARTERIES 2008 Last Documented On 3 3:11PM ; [facility] Brother HAS MS 02/09/2009 Last Documented On 3 3:11PM ; [facility] Father 02/09/2009 Last Documented On 3 3:11PM ; [facility] Heart disease 02/09/2009 Last Documented On 3 3:11PM ; [facility] Mother 02/09/2009 Last Documented On 3 3:11PM ; [facility] Review of Systems Includes: Review of Systems from this encounter Neurological: No ataxia. Psychological: No fear of falling. Past Medical: No fall in the past 6 months. Mental Status Includes: Mental Status from this encounter Description Oriented to time, place, and person Functional Status Includes: Functional Status from this encounter Description Ambulation did not require a cane Ambulation did not require a walker Ambulation did not require c gilberto Physical Exam Includes: Physical Exam from this encounter Allergies Includes: Active Allergies Substance Type Reaction Onset Date Resolved Date Statu s Sulfa Antibiotics Allergy 02/09/2009 A ctive Last Documented On 3 3:29PM ; [facility] Fish Oil Allergy THROAT, MOUTH AND EARS ITCH 04/12/2014 Active Last Documented On 3 3:29PM ; [facility] CeleBREX Allergy 02/09/2009 Active Last Documented On 3 3:29PM ; [facility] Encounters Encounter Provider Location Date Check-In Time Check-Out Time Diagnosis FOLLOW UP SHAQ Banegas [facility] 11/14/19 23 2:59PM 3:13PM Osteoarthritis Localized Primary Knee Right Insurance Includes: Active Insurance Policies Plan Name Member ID Group # Subscriber Relationship Effect grant Dates 1 - [facility]/[employer] [id number] BRIGIDA PRESCOTT S fede Clinical Notes Includes: Clinical Notes from this encounter * Progress note Date Encounter Last Documented by 11/14/2022 FOLLOW UP Last documented on 11/14/2022; 3:16 PM, SHAQ Banegas; [facility] Active Problems & Conditions - 285.9 - Anemia - 610.2 - Breast Fibroadenosis Chronic - pt s/p removal and all mammogram performed by Dr. Clifford at [facility] - 562.10 - Colonic Diverticulosis - 246.2 - CYST OF THYROID - pt to see ent and tile and marble installer - 530.81 - Esophageal Reflux - I10 - Essential Hypertension Benign - V88.01 - History of Hysterectomy - V15.29 - History of Prior Surgery: Stent - 272.4 - Hyperlipidemia - M25.561 - Joint Pain in the Right Knee on the Inner Side - M17.11 - Osteoarthritis Localized Primary Knee Right - 788.31 - URGE INCONTINENCE Chief Complaint The Chief Complaint is: Right knee Gelsyn 3 2nd injection. History of Present Illness BRIGIDA PRESCOTT is a 72 year old female. - Allergy list reviewed - Medication list reviewed Brigida follows up to have her 2nd injection of Gelsyn in her right knee. She describes only a few weeks of relief from her recent steroid injection. She denies any new symptoms. She denies any new or subsequent injury after last visit. Symptoms are consistent with osteoarthritis of the right knee Current Medication - Amiodarone HCl 200 MG Oral Tablet One tablet daily 0 days, 0 refills - Calcium 600 MG Tablet 0 days, 0 refills - Furosemide 40 MG Oral Tablet One tablet daily 0 days, 0 refills - Gabapentin 100 MG Oral Capsule 1 capsule daily 0 days, 0 refills - hydrALAZINE HCl 100 MG Oral Tablet One tablet three times a day 0 days, 0 refills - Irbesartan 300 MG Tablet 0 days, 0 refills - Levothyroxine Sodium 175 MCG Tablet 0 days, 0 refills - Livalo 1 MG Tablet 0 days, 0 refills - Metoprolol Succinate ER 25 MG Tablet Extended Release 24 Hour 0 days, 0 refills - Multi Vitamin Daily Tablet 0 days, 0 refills - NexIUM 40 MG Oral Capsule Delayed Release 1 capsule daily 0 days, 0 refills - Oxybutynin Chloride 5 MG Tablet 0 days, 0 refills - predniSONE 10 MG Oral Tablet as directed TAPER FOLLOWS, TAKE 4 TABS FOR 4 DAYS, 3 TABS FOR 3 DAYS, 2 TABS FOR 2 DAYS AND ONE TAB FOR ONE DAY, 10 days, 0 refills - Valsartan-hydroCHLOROthiazide 320-25 MG Oral Tablet One tablet daily 0 days, 0 refills - Xarelto 20 MG Oral Tablet One tablet daily 0 days, 0 refills Past Medical/Surgical History Other: Primary Care Provider: Dr. Cheryl VALERIO BREAST SPECIALIST Reported: No recent change in medical history. Surgery GALBLADDER 1978 BLADDER 02/20. LMP: 06/15/1996, Last pap smear date 03/11/2012 result: normal, Last mammogram date: 08/2016 result: normal, and status post hysterectomy DUB. Medical: Hypertension. Surgical / Procedural: Surgical / procedural history SINUS SURGERY 11/02 THYROIDECTOMY 08/2015 benign nodules and Stent. Bilateral salpingo-oophorectomy, Breast Biopsy, and surgical history unchanged. Medications: Taking - prescription Patient currently taking Levaquin. Finished Zithromax. Tussionex helping. Proventil inhaler seems to help for a little while, medication for pain [id number] /fever. Using Tylenol, and [id number] medications including Mucinex. Tests: A mammogram was performed 07/30/07 and a colonoscopy was performed 09/26/2009 DR MARY BOWLES 2014. : 2, para 2 having 2 living children, and history of the : vaginal delivery. Other: Screening mammogram was performed 05/06/2014. A DXA of the lateral lumbar spine was performed 06/11/2013 Diagnoses: Essential hypertension Benign essential hypertension. Chronic reflux esophagitis. Menopause. Thyroid disorder THYROID NODULES GERD hyperilpidemia LISA/BSO DUB ENDOMETRIOSIS 2003- Bladder urge incont. status post anterior repair. Procedural: - Pap smear done 03/11/2012 Surgical: - Cholecystectomy - Hysterectomy 06/15/1996 - Total abdominal hysterectomy Social History Social history unchanged. Personal: Personal history plans to retire 10/05. Tobacco use: Tobacco non-user and non-smoker. Smoking status: Never smoker. Alcohol: Not using alcohol. Alcohol use: 2 drinks or less per day RARELY. Education: Educational level. Marital: Marital history and currently . Sexual: Sexually active. In monogamous relationship. Allergies - CeleBREX - Fish Oil Reaction: THROAT, MOUTH AND EARS ITCH - Sulfa Antibiotics Family History Father Mother Spouse name: DARLING Brother HAS MS Brother BLOCKED ARTERIES First child named Second child named Heart disease Family history unchanged Family medical history of high blood pressure &hyperlipidemia(F) Diabetes (m) Systemic hypertension Patient, Father Pure hypercholesterolemia Father Diabetes mellitus Mother No diagnosis of malignant neoplasm of large intestine No diagnosis of malignant female breast neoplasm No diagnosis of malignant neoplasm of ovary No diagnosis of uterine cancer Maternal: Diabetes mellitus Mother Review Of Systems Neurological: No ataxia. Psychological: No fear of falling. Past Medical: No fall in the past 6 months. Physical Findings - Vitals taken 11/14/2022 03:11 pm BP-Sitting 134/82 mmHg Pulse Rate-Sitting 78 bpm Height 66.5 in General Appearance: - Well developed. - In no acute distress. Musculoskeletal System: Knee: Right Knee: - Examined. - No localized swelling. Functional Exam: General/bilateral: - Ambulation did not require a cane. - Ambulation did not require a walker. - Ambulation did not require crutches. Neurological: - Oriented to time, place, and person. Skin: - Skin: - No ecchymosis on the right knee. - No skin lesions. - No purpura was seen. Injury / Incision Site: - No scar. - Right knee showed no contusion. Assessment - [M17.11 - Unilateral primary osteoarthritis, right knee] Localized primary osteoarthritis of right knee Therapy - Encouragement to exercise. - Intervention and counseling on cessation of tobacco use. - Sodium Hyaluronate, 5 mg for intra-articular injection The right knee was prepped in aseptic technique. I injected Gelsyn viscosupplementation into the right knee using a 22 gauge -10/21 needle. Patient tolerated the procedure well and post procedure showed no signs of complications. Patient will be seen for the continuation of the series. - Informed consent obtained Risks and benefits of a Corticosteroid injection/hyaluronic injection/aspiration are discussed in detail with the patient prior to administration. The patient was informed that an injection/aspiration consists of introducing a needle into the joint, muscle or under the skin and that the insertion of medication is for the purpose of treatment in their care. Preparation for the injection/aspiration includes cleaning the skin with an antiseptic. This may cause some skin irritation. There exists the possibility of certain complications from this injection/aspiration. These include pain, nerve damage, bleeding, swelling, allergic reaction to the medication or antiseptic, disability or even . The patient has been questioned regarding any allergies to the antiseptic or latex. The patient wishes to proceed with the injection/aspiration. Verbal consent obtained. Plan I provided her with the right knee Gelsyn injection. This was the second injection in the series. She will follow up next week for the third and final injection in the series. Practice Management Use of tobacco assessment performed and patient screened for future fall risk documentation of any fall with injury in past year Review of medications documented. Health Reminders - Assess Blood Pressure satisfied 11/14/2022. - Assess Screening for Fall Risk satisfied 11/14/2022. - Assess Tobacco Use satisfied 11/14/2022. - Mammogram satisfied 05/06/2014.
--- OUTSIDE RECORDS SUMMARY | 2024-12-30 14:18 | XMS_ITS | Continuity of Care Document ---
Author Organization [employer] [facility] Address [address] [place] [address] Phone Care Team Providers Care Radio Division Lieutenant Name Role Phone Carol Villagomez OD Unavailable Unavailable Allergies, Adverse Reactions, Alerts Substance Reaction Status Criticality shellfish derived Active No Informa tion FISH LIVER OIL Active No Informatio n Sulfa (Sulfonamide Antibiotics) Active No Information Medications Medication Instructions Dosage Effective Dates (start - stop) Status Comments Entresto 49 mg-51 mg tablet take 1 tablet by oral route 2 times every day 1.00 tablet - Active ezetimibe 10 mg tablet take 1 tablet by oral route every day 10 MG - Active hydralazine 100 mg tablet take 1 tablet by oral route 2 times every day with food 100 MG - Active levothyroxine 175 mcg tablet take 1 tablet by oral route every day 175 MCG - Active metoprolol succinate ER 25 mg tablet,extended release 24 hr take 1 tablet by oral route every day 25 MG - Active Lasix 20 mg tablet take 1 tablet by oral route every day 20 MG - Active amiodarone 100 mg tablet take 1 tablet by oral route 2 times every day 100 MG - Active Nexium 40 mg capsule,delayed release take 1 capsule by oral route every day 40 MG - Active oxybutynin chloride 5 mg tablet take 1 tablet by oral route every day 5 MG - Active Xarelto 2.5 mg tablet take 1 tablet by oral route 2 times every day 2.5 MG - Active Calcium 500 500 mg calcium (1,250 mg) tablet take 1 by oral route every day 1 - Active Procedures Procedure Date Fundus Photography W/ Report Eye Exam & Treatment No Charge Refraction Eye Exam & Treatment No Charge Optomap Fundus Photos 022 Eye Exam & Treatment No Charge Optomap Fundus Photos 021 Eye Exam & Treatment No Charge Refraction Eye Exam & Treatment Post-op Follow-up Visit No Charge Refraction After Cataract Laser Surgery Eye Exam & Treatment Eye Exam & Treatment No Charge Refraction Post-op Follow-up Visit No Charge GDX Retina Post-op Follow-up Visit Post-op Follow-up Visit Remove Cataract, Insert Lens No Charge Refraction Post-op Follow-up Visit Post-op Follow-up Visit Post-op Follow-up Visit Remove Cataract, Insert Lens No Charge Refraction IOLMaster Corneal Topography IOLMaster Eye Exam, New Patient Advance Directives Directive Yes / No Effective Date File Name Other Directive No N/A N/A WARNING:The information contained in this section is historical and is provided for information only and does not constitute a legal document or any assurance that the information is still accurate. Please verify the information with the fiore of the legal document before using it for clinical purposes. Encounters Encounter Description Practice Location Reason(s) For Visit Diagnoses Date Provider Providers Copied on Encounter [facility], [address], [place], [place], [id number], [place] tel:[phone] SEC Sameer MARIE Professional Complete Exam (chief complaint) Pseudophakia of both eyesOther secondary cataract, left eyeCornea verticillata of both eyesDry eye syndrome of bilateral lacrimal glandsVitreo us degeneration , left eye 4 Hernando OD Carol. [address], [address], [place], [place], [address], [place]. tel:[phone] Luis Alberto Beauchamp MD.Referring Provider: Saw Luther, [address], [address]. tel:[phone] [facility], [address] [place] [address] [address], [place], [place], [address], [place] tel:[phone] SEC [employer] [place] Professional Complete Exam (chief complaint) Pseudophakia of both eyesOther secondary cataract, left eyeCornea verticillata of both eyesDry eye syndrome of bilateral lacrimal glands 3 Hernando OD Carol. [address] [place] [address], [address], [place], [place], [address], [place]. tel:[phone] Luis Alberto Beauchamp MD.Referring Provider: Saw Luther, [address], [address]. tel:[phone] [facility], [address] [place] [address] [address], [place], [place], [address], [place] tel:[phone] SEC Sameer [place] Professional Complete Exam (chief complaint) Cornea verticillata of both eyesInsuffic iency of tear film of both eyesPseudoph chitra of both eyes 2 Jean Claude Lawson. [address], [facility] [place], [address], [place]. tel:[phone] Luis Alberto Beauchamp MD.Referring Provider: Saw Luther, [address], [address]. tel:[phone] [facility], [address] [place] [address] [address], [place], [place], [address], [place] tel:[phone] SEC [employer] [place] Professional Complete Exam (chief complaint) Pseudophakia of both eyesCornea verticillata of both eyesDry eye syndrome of left lacrimal gland 1 Jean Claude Lawson. [address] [facility], [address], [place], [place], [address], [place]. tel:[phone] Referring Provider: Saw Luther, [address], [address]. tel:[phone] [facility], [address], [place], [place], [address], [place] tel:[phone] SEC [employer] [place] Professional Complete Exam (chief complaint) Vitreous degeneration , right eyeOther secondary cataract, left eyeCornea verticillata of both eyesPseudoph chitra of both eyes 0-202 0 Wei OD Alexander. [address] [place] [address], [address] [place] [address], [place], [address], [place]. tel:[phone] Referring Provider: Saw Luther, [address], [address]. tel:[phone] [facility], [address] [place] [address] [address], [place], [place], [id number], [place] tel:[phone] SEC [employer] [place] Professional No Information 0 Jean Claude Lawson. [address] [facility], [address], [place], [place], [address], [place]. tel:[phone] Specialist: Luis Alberto Beauchamp MD, [address] [place] [address] [address], [place], [address]. tel:[phone] [facility], [address] [place] [address] [address], [place], [place], [address], [place] tel:[phone] SEC [employer] [place] Professional 3 week s/p YAG PC (chief complaint) Encounter for examination following surgery 2201 9 Wei OD Alexander. [address] [place] [address], [address] [facility], [place], [address], [place]. tel:[phone] Referring Provider: Saw Luther, [address], [address]. tel:[phone] [facility], [address], [place], [place], [address], [place] tel:[phone] SEC Sameer PA Professional Complete Exam (chief complaint) Pseudophakia of both eyesOther secondary cataract, bilateralPun ctate keratitis, bilateralCor greg verticillata of both eyes Jan-1 2-201 9 Jean Claude Lawson. [email or web address], [address] [place], [address], [place]. tel:[phone] Referring Provider: Saw Luther, [address], [address]. tel:[phone] [facility], [address] [place] [address] [address], [place], [place], [address], [place] tel:[phone] SEC Sameer PA Professional No Information Jan-0 5- 9 Jean Claude Lawson. [address], [address] [place], [address], [place]. tel:[phone] [facility], [address] [place] [address] [address], [place], [place], [address], [place] tel:[phone] SEC [employer] [place] Professional Complete Exam (chief complaint) Insufficienc y of tear film of both eyesPseudoph chitra of both eyes Jared-2 3-201 7 Jean Claude Lawson. [address], [address] [place], [address], [place]. tel:[phone] Referring Provider: Saw Luther, [address], [address]. tel:[phone] [facility], [address] [place] [address] [address], [place], [place], [address], [place] tel:[phone] SEC [employer] [place] Professional Post-Op (chief complaint) No Information Jun-3 0-201 6 Jean Claude Lawson. [address] [employer], [address] [place], [address], [place]. tel:[phone] Referring Provider: Saw Luther, [address], [address]. tel:[phone] [facility], [address], [place], [place], [address], [place] tel:[phone] SEC [facility] Professional Post-Op (chief complaint) No Information Sep-0 6 Silverio Renny. [address] [facility], [address] [place], [address], [place]. tel:[phone] Referring Provider: Saw Luther, [address], [address]. tel:[phone] [facility], [address] [place] [address] [address], [place], [place], [address], [place] tel:[phone] SEC [facility] Professional Post-Op (chief complaint) No Information Sep-0 - 6 Wankum Marlo. [address] [email or web address], [address] [place], [address], [place]. tel:[phone] Referring Provider: Saw Luther, [address], [address]. tel:[phone] [facility], [address], [place], [place], [address], [place] tel:[phone] [facility] No Information May-3 - 6 Jean Claude Lawson. [address] [email or web address], [address] [place], [address], [place]. tel:[phone] Referring Provider: Saw Luther, [address], [address]. tel:[phone] [facility], [address], [place], [place], [address], [place] tel:[phone] SEC Sameer MARIE Professional 1 month post op (chief complaint) No Information 6 Jean Claude Lawson. [address] [facility], [address] [place], [address], [place]. tel:[phone] Referring Provider: Saw Luther, [address], [address]. tel:[phone] [facility], [address], [place], [place], [address], [place] tel:[phone] SEC Sameer MARIE Professional Post-Op (chief complaint) No Information 6 Jean Claude Lawson. [address] [facility], [address] [place], [address], [place]. tel:[phone] Referring Provider: Saw Luther, [address], [address]. tel:[phone] [facility], [address] [place] [address] [address], [place], [place], [id number], [place] [phone] SEC Sameer MARIE Professional F/u exam, postop (chief complaint) No Information 6 Sina Sellers. [address] [facility], [address] [place], [address], [place]. tel:[phone] Referring Provider: Saw Luther, [address], [address]. tel:[phone] [facility], [address], [place], [place], [address], [place] [phone] [facility] No Information 6 Jean Claude Lawson. [address] [email or web address], [address], [place], [address], [place]. tel:[phone] Referring Provider: Saw Luther, [facility] [address] [place], [address]. tel:[phone] [facility], [address], [place], [place], [address], [place] tel:[phone] SEC Sameer PA Professional Cataract Evaluation (chief complaint) No Information Jean Claude Lawson. [address] [facility], [address], [place], [place], [address], [place]. tel:[phone] Referring Provider: Saw Luther, [facility] [address] [place], [address]. tel:[phone] Family History Family Member Type Diagnosis Age At Onset Mother Problem (finding) Diabetes mellitus Payers Payer name Insurance type Covered green party ID Authorramakrishna moss(s) AARP Medicare Complete CI [id number] Social History Type Description Quantity Date Captured Comments Alcohol Use Details No Caffeine Use Details No Tobacco Use Status Current non-smoker Smoking Status Never smoker Non-Smoking Tobacco Use Details : No Details Available : No Details Available Sex Female Chief Complaint And Reason For Visit From encounter dated '09/14/2024 14:00'. Complete Exam (chief complaint). Description: The 74 year old patient presents for a complete exam ou. Patient is pseudo ou. Monitoring DIONE ou. Patient denies any changes in vision ou. Reason For Referral Reason For Referral No Information Plan Of Treatment Date Type Action Status Patient Education Dry Eyes: Care Instruct ions completed Patient Education Dry Eyes: Care Instruct ions completed Patient Education Dry Eyes: Care Instruct ions completed Patient Education Dry Eyes: Care Instruct ions completed Patient Education Learning About YAG Lase r Capsulotomy completed History Of Present Illness Encounter Date Complaint History Of Prese nt Illness Complete Exam The 74 year old patient presents for a complete exam ou. Patient is pseudo ou. Monitoring DIONE ou. Patient denies any changes in vision ou. Complete Exam The 73 year old patient presents for evaluation of Complete Exam in the right eye and left eye. Pt states no changes in vision since last visit. Pt states when they first go to read it take a while for their eye to focus. Complete Exam The 71 year old patient presents for a complete exam ou. Patient is pseudo ou with yag cap OD. Patient is monovision OD NV and OS DV. Patient DIONE and uses AT. Patient denies any changes in vision ou. Complete Exam The 70 year old female presents for a complete exam ou. Patient is pseudo ou with yag pc OD. Monitoring DIONE ou. Patient is monovision. Patient uses Blink prn. Patient denies any changes in vision ou. Complete Exam The 69 year old female presents for a complete exam ou. Patient is pseudo ou with yag cap OD. Patient c/o a film on OS x 6 months. Patient c/o eyes are dry. Patient is monovision. 3 week s/p YAG PC The 68 year ol d female presents for evaluation of 3 week s/p YAG PC in the right eye. Patient states the cloudiness is gone in the right eye. Patient is MONO VA right eye is for reading. Complete Exam The 68 year old female presents for a complete IOL check ou. Patient has hx of Lasik ou. Patient is monovision. Patient c/o there seems like a film on eyes when she reads x 6 months. OD is NV eye. Complete Exam The 66 year old female presents for Complete Exam in the right eye and left eye. Hx PCIOL OU, Refrective Sx OU, MVN OS distance per PT. Pt states her vision is doing fine no changes that she can notice. Pt denies pain/discomfort. Ptusing Blink PRN. Post-Op The 66 year old female presents for a 1 month post op CE OD. Patient is pseudo ou. Patient OD seems like looking out of a dirty contact. Patient is monovision. Patient is finished with drops. Post-Op The 66 year old female presents for a 1 week post op CE OD. Patient is using drops as directed. Patient is monovisino. Patient c/o a blur spot in vision and is not sure which eye. Post-Op The 65 year old female presents 1 day PO PCIOL OD ( set for near) Reviewed PO instructions and medications with Pt. Pt started Pred QID OD, Diclofenac TID OD, Vigamox QID OD.Pt reports no flashes or new floaters OU. Pt denies pain, discomfort, irritation OU. 1 month post op The 65 year old female presents for 1 month post op in the left eye. Patient reports no problems with OS. Patient is scheduled for CE OD 06-19-16 due to decreased vision. Patient is not currently using post op drops. Artificial tears prn OS for dry eyes. Patient is wearing a soft contact lens OD today for near and would like to be corrected for monovision. Post-Op The 65 year old female presents for a 1 week post op CE OS. Patient is using Pred, Vigamox and Diclofeanc as directed. Patient states OS is doing good. Patient is anxious to have OD done. F/u exam, postop The 65 year old female presents for a 1 day post op CE OS. Patient to begin Pred, Diclofenac and Vigamox OS as directed. Patient denies any pain or discomfort. Cataract Evaluation The 65 year old female presents for evaluation of Cataract Evaluation. Pt states her distance VA is getting blurry and she is getting STEIN due to eye strain. Pt was given new spec rx from Dr Lugo ( 02/23/16), pt states her VA is still blurry even with specs. Pt has hx of Lasik, monovision OD Near, OS distance. Pt does not use any gtt or AFT. Pt has no other complaints OU. 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 - Overall eye health is very good OU.- Vision and IOP are stable OU.- Recommend patient return to clinic in 1 year or sooner with problems. Follow up - Return t o clinic in 1 year for complete exam Follow up - Return t o clinic in 4 months for DFE Impression/Plan - 1 month s/p Phaco IOL OD. Patient has healed well. All post operative medications are finished. Vision is good and IOP is stable. AFT recommended due to dryness OD> OS, which accounts for patients VA complaint today. Sample of Retaine given to patient. Patient will return in 4 months or sooner with problems. Follow up - Return t o clinic as scheduled Impression/Plan - On e week PO s/p Phaco with IOL OD with near target. IOL in good position; near vision is good and patient is healing well. Discussed the blurry area in the left eye vision. Explained the only likely cause for this blurred vision is the very early PCO OS. Patient understands there is no treatment recommended at this time. Advised patient to monitor the vision for changes. Patient advised she no longer needs to wear the shield over the eye at bedtime. Medication instillation and post op instructions reviewed. Patient will return in 3 weeks or sooner with problems. Impression/Plan - 1 day post op Phaco with PCIOL OD, discussed post op instructions and medication use. Return to clinic as scheduled. Follow up - as scheduled Follow up - Proceed with OD CE as scheduled Impression/Plan - 1 month s/p Phaco IOL OS. Patient has healed well. Vision is good and IOP is stable. Due to residual AC inflammation instructed patient to use the Prednisolone BID OS x 1 week, QD OS x 1 week, then stop. Written instructions given to patient. Patient elects to proceed with OD CE scheduled 06/19/2016 with the standard IOL set for near. *Patient was given several different CTLs to trial and she preferred the -1.75 contact lens OD for near and computer work. Based on her MRx which measured at -3.50 SE at her initial Cataract evaluation and -3.00 SE today we will plan on targeting around -1.50 or slightly over for her OD Impression/Plan - On e week PO s/p Phaco with IOL OS. IOL in good position; healing well. Patient advised they no longer need to wear the shield over the eye at bedtime. Medication instillation and post op instructions reviewed. Patient will return in 3 weeks or sooner with problems.*Patient was given an Air Optix -2.50 / 8.4/ 13.8 to wear in the right eye to help her get by at work until the right eye CE. Discussed the options of setting the right eye more for computer distance, but patient prefers it be set for near as she plans to retire soon. Advised patient to remove the contact each night. Opti-free sample and contact lens case given to patient. Follow up - Return t o clinic as scheduled Follow up - as scheduled Impression/Plan - 1 day post op Phaco with PCIOL OS, discussed post op instructions and medication use. Return to clinic as scheduled Impression/Plan - Ca taract Diagnosis OU discussed in detail with patient. Discussed all risks, benefits and alternatives pertaining to cataract surgery. Patient understands that her previous refractive surgery can make calculating her lens implant somewhat more difficult. We will obtain her records from [facility] to help increase the accuracy of the IOL calculation. The procedure and recovery from cataract extraction were discussed. Recommend phacoemulsification with intraocular lens implant. Lifestyle lens options discussed. The possibility that patient may still need to wear glasses to correct astigmatism and/or for reading vision following surgery reviewed and understood by patient. Patient elects to proceed with CE OS first with the standard IOL set for DISTANCE, followed by CE OD with the standard IOL set for NEAR. Follow up - Schedule CE OS first with the standard IOL set for DISTANCE, followed by CE OD with the standard IOL set for NEAR. Assessments Type Assessment Date assessment Pseudophakia of both eyes assessment Other secondary cataract, left e ye assessment Cornea verticillata of both eyes assessment Dry eye syndrome of bilateral la crimal glands assessment Vitreous degeneration, left eye Patient Care Teams Name Effective Dates (start - stop) Status Members No Information
--- OUTSIDE RECORDS SUMMARY | 2024-12-30 14:19 | XMS_ITS | Encounter Summary ---
Author Organization [facility] Address [address] [place] [address] Phone Care Team Providers Care Sand Blaster Name Role Phone hJ Tena MD Unavailable [phone] Carmen Hurst MD Unavailable Luis Alberto Beauchamp MD Unavailable [phone] Reji Clarke DO Unavailable [phone] Nathan Cross MD Primary Care Provider [phone] Vaughn Melendez MD Unavailable [phone] Frederick Burton DMD Unavailable [phone] Doris Brenner DO Unavailable [phone] Obdulio Kumar MD Unavailable Catracho Fernandez MD Unavailable [phone] El Vo MD Unavailable [phone] Pati Yang NP Unavailable [phone] Encounter Details Date Type Department Care Team (Late st Contact Info) Description 06/18/2022 Orders Only [facility] [address] [place] [address] Scanning, Provider Social History Tobacco Use Types Packs/Day Years Used Date Smoking Tobacco: Never Smokeless Tobacco: Never Alcohol Use Standard Drinks/Week Comments No 0 (1 standard drink = 0.6 oz pur e alcohol) PHQ-2 Answer Date Recorded PHQ-2 Total Score (If total score is 3 or more points, staff should administer the PHQ-9) 0 05/02/2021 Comments No Sex and Gender Information Value Date Recorded Sex Assigned at Not on file Legal Sex Female 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 Gender Identity Female 05/03/2020 10:38 PM CDT Sexual Orientation Straight 05/03/2020 10 :38 PM CDT 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 Not on file Not on file documented as of this encounter Plan of Treatment Not on file documented as of this encounter Procedures Procedure Name Priority Date/Time Associated Diagnosis Comments SCAN - RADIOLOGY/IMAGING 06/18/2022 documented in this encounter Results * SCAN - RADIOLOGY/IMAGING (06/18/2022) Anatomical Region Laterality Modality Other us Provider Scanning Edited Result - Final documented in this encounter Visit Diagnoses Not on filedocumented in this encounter Additional Health Concerns Infection Onset Date Last Indicated Resolved Time COVID: Recovered Comment:Added based on recent COVID infection. 03/15/2022 03/16/2022 07/13/2022 3:05 AM C DT documented as of this encounter Care Teams Sand Blaster Relationship Specialty Start Date End Date Nathan Cross MD [address] [place] [address] PCP - General Infectious Diseases 02/17/20 Jh Tena MD Consulting Physician Cardiology 01/08/18 Carmen Hurst MD Consulting Physician Neurology 01/08/18 Luis Alberto Beauchamp MD [address] [facility] [address] [place] [address] Consulting Physician Endocrinology 06/18/19 02/12/24 Reji Clarke DO [address] [place] [id number] Referring Physician Orthopedic Surgery 08/17/19 Vaughn Melendez MD [address] [facility] [address] [place] [address] Consulting Physician Gastroenterology 08/03/20 Frederick Burton DMD [address] [place] [address] Dentist Dental Academic Tutor 04/12/21 Doris Brenner DO [address] [place] [address] DR CHUCHO Tavera [address] [address] Consulting Physician Otolaryngology 12/28/21 Obdulio Kumar MD [address] [place] [address] [address], [place] [address] Consulting Physician Gastroenterology 04/03/23 [place] [id number] [address] Consulting Physician Orthopedic Surgery 04/24/23 El Vo MD [address] [address] Referring Physician Orthopedic Surgery 10/15/23 Pati Yang NP [address] [address] Nurse Practitioner Cardiology 03/31/24 documented as of this encounter
--- OUTSIDE RECORDS SUMMARY | 2024-12-30 14:19 | XMS_ITS | Clinical Summary ---
Author Organization [facility] Address [address] [place] [address] Phone Care Team Providers Care Spice Blender Name Role Phone MILENA QUIROGA MD Unavailable [phone] MABEL MULLINS Primary Care Provider [phone] Reason for Visit and Chief Complaint * PHONE CALL Problems Includes: Problems addressed during this encounter and other active Problems Current Visit Onset Date Resolved Date Provider Conditio n Status History of Prior Surgery: Stent 04/12/2014 MAY BRUNO RN JN Active Last Documented On 04/12/2014 8:44AM ; [facility] Note: Unchanged History of Hysterectomy 04/05/2013 MAY BRUNO RN JN Active Last Documented On 04/05/2013 1:24PM ; [facility] Note: Unchanged Past Visits Onset Date Resolved Date Provider Condition Status Osteoarthritis Localized Primary Knee Right 09/27/2022 SHAQ Banegas Active Last Documented On 2 10:05AM ; [facility] Joint Pain in the Right Knee on the Inner Side 06/14/2022 SHAQ Banegas Active Last Documented On 2 1:24PM ; [facility] Anemia 04/16/2015 MAY BRUNO RN JN Active Last Documented On 5 1:16PM ; [facility] Colonic Diverticulosis 04/16/2015 MAY BRUNO RN JN Active Last Documented On 5 1:15PM ; [facility] URGE INCONTINENCE 03/07/2011 CHRISSIE ROSADO M.D. Active Last Documented On 1 10:51AM ; [facility] Breast Fibroadenosis Chronic 01/25/2010 MAY BRUNO RN WHN P BC Active Last Documented On 04/13/2015 8:29AM ; [facility] Note: pt s/p removal and all mammogram p erformed by Dr. Clifford at [facility] CYST OF THYROID 01/25/2010 CHRISSIE RODRIGUEZ M.D. Active Last Documented On 01/25/2010 1:41PM ; [facility] Note: pt to see ent and intelligence operations specialist Esophageal Reflux 01/15/2010 DARSHANA TORRES MD Active Last Documented On 0 10:38PM ; [facility] Hyperlipidemia 02/09/2009 DARSHANA TORRES MD Active Last Documented On 0 10:38PM ; [facility] Essential Hypertension Benign 02/09/2009 DARSHANA TORRES MD Active Last Documented On 0 10:38PM ; [facility] Plan of Treatment No Plan of Treatment Recorded Assessments Includes: Assessments from this encounter No [...] On 06/14/2022 1:28PM By Ira ALVA ; [facility] hydrALAZINE HCl 100 MG Oral Tablet 06/14/2022 Provid er: Diagnosis: Last Documented On 06/14/2022 1:15PM By MARCY BHAT LPN ; [facility] Gabapentin 100 MG Oral Capsule 06/14/2022 Provider: Diagnosis: Last Documented On 06/14/2022 1:15PM By MARCY BHAT LPN ; [facility] Valsartan-hydroCHLOROthiazide 320-25 MG Oral Tablet Provider: Diagnosis: Last Documented On 06/14/2022 1:12PM By MARCY BHAT LPN ; [facility] NexIUM 40 MG Oral Capsule Delayed Release 06/14/2022 Provider: Diagnosis: Last Documented On 06/14/2022 1:12PM By MARCY BHAT LPN ; [facility] Furosemide 40 MG Oral Tablet 06/14/2022 Provider: Diagnosis: Last Documented On 06/14/2022 1:11PM By MARCY BHAT LPN ; [facility] Amiodarone HCl 200 MG Oral Tablet 06/14/2022 Provide r: Diagnosis: Last Documented On 06/14/2022 1:10PM By MARCY BHAT LPN ; [facility] Xarelto 20 MG Oral Tablet 06/14/2022 Provider: Diagnosis: Last Documented On 06/14/2022 1:10PM By MARCY BHAT LPN ; [facility] Calcium 600 MG Tablet 05/02/2016 Provider: Diagnosis: Last Documented On 05/02/2016 2:58PM By CLAUDIA REYES MA ; [facility] Multi Vitamin Daily Tablet 05/02/2016 Provider: Diagnosis: Last Documented On 05/02/2016 2:58PM By CLAUDIA REYES MA ; [facility] Irbesartan 300 MG Tablet 05/02/2016 Provider: Diagnosis: Last Documented On 05/02/2016 2:58PM By CLAUDIA REYES MA ; [facility] Metoprolol Succinate ER 25 MG Tablet Extended Re lease 24 Hour 05/02/2016 Provider: Diagnosis: Last Documented On 05/02/2016 2:57PM By CLAUDIA REYES MA ; [facility] Levothyroxine Sodium 175 MCG Tablet 05/02/2016 Provi blu: Diagnosis: Last Documented On 05/02/2016 2:57PM By CLAUDIA REYES MA ; [facility] oxyBUTYnin Chloride 5 MG OR TABS 04/12/2014 Provider : Diagnosis: Last Documented On 04/12/2014 8:27AM By AIRAM SARAVIA ; [facility] Livalo 1 MG OR TABS 04/12/2014 Provider: Diagnosis: Last Documented On 04/12/2014 8:27AM By AIRAM SARAVIA ; [facility] Past Medications on file Terconazole 0.8% VA CREA 04/05/2013 - 04/14/2013 Provider: MAY GARNICA BC Diagnosis: CANDIDAL VULVOVA GINITIS 1 PAULA IN VAGINA EVERY NIGHT X 3 APPLY BID TO EXTERNAL AREA Last Documented On 3 1:26PM By MAY GARNICA-BC ; [facility] Diflucan 150 MG OR TABS 03/13/2012 - 03/14/2012 Provider: CHRISSIE ROSADO M.D. Diagnosis: CANDIDAL VULVOVA GINITIS 1 po x 1 day Last Documented On 2 12:45PM By DR. CHRISSIE ROSADO ; [facility] oxyBUTYnin Chloride 5 MG OR TABS 07/01/2011 - 12/28/2011 Provider: DARSHANA KAPOOR MD Diagnosis: Last Documented On 1 12:11AM By DARSHANA TORRES MD ; [facility] Aciphex 20 MG OR TBEC 05/27/2011 - 08/25/2011 Provider : MERY KAUFFMAN PA-C Diagnosis: Last Documented On 1 4:37PM By MERY KAUFFMAN PA-C ; [facility] Lisinopril-hydroCHLOROthiazi de 20-12.5 MG TABS 04/29/2011 - 08/27/2011 Provider: STEVEN FLORES PA-C Diagnosis: 1 qd #30 Last Documented On 04/29/2011 12:46PM By STEVEN FLORES PA-C ; [facility] Carbinoxamine Maleate 4 MG OR TABS 03/29/2011 - 05/28/2011 Provider: DARSHANA TORRES MD Diagnosis: ALLERGIC RHINITI S NOS Last Documented On 03/29/2011 1:37PM By Rosy ALVA ; [facility] Oxytrol 3.9 MG/24HR TD PTTW 03/07/2011 - 05/06/2011 Provider: CHRISSIE JORDAN M.D. Diagnosis: URGE INCONTINENC E change patch q 72 hrs Last Documented On 1 10:56AM By DR. CHRISSIE ROSADO ; [facility] NexIUM 40 MG OR CPDR 03/01/2011 - 03/31/2011 Provider: STEVEN FLORES PA-C Diagnosis: Last Documented On 03/01/2011 9:52AM By STEVEN FLORES PA-C ; [facility] Flonase 50 MCG/ACT NA SUSP 11/15/2010 - 12/15/2010 Provider: JULES Banegas Diagnosis: ACUTE SINUSITIS NOS 2 sprays each nostril qd Last Documented On 11/15/2010 3:45PM By JULES MCCARTHY PA-C ; [facility] Zithromax Z-Kash 250 MG OR TABS 11/15/2010 - 11/20/2010 Provider: JULES Banegas Diagnosis: ACUTE SINUSITIS NOS Last Documented On 11/15/2010 3:12PM By JULES MCCARTHY PA-C ; [facility] Cefprozil 500 MG OR TABS 10/25/2010 - 11/04/2010 Provi blu: STEVEN FLORES PA-C Diagnosis: Last Documented On 10/25/2010 10:11AM By STEVEN FLORES PA-C ; [facility] Augmentin 875-125 MG OR TABS 09/11/2010 - 09/21/2010 P rovider: STEVEN FLORES PA-C Diagnosis: Last Documented On 09/11/2010 11:00AM By STEVEN FLORES PA-C ; [facility] Valtrex 1 GM OR TABS 08/20/2010 - 08/21/2010 Provider: STEVEN FLORES PA-C Diagnosis: HERPES SIMPLEX N OS 2 tabs po now, repeat in 12 hours Last Documented On 08/20/2010 5:51PM By STEVEN FLORES PA-C ; [facility] Levaquin 750 MG OR TABS 08/20/2010 - 08/25/2010 Provid er: STEVEN FLORES PA-C Diagnosis: BRONCHITIS NOS Last Documented On 08/20/2010 5:51PM By STEVEN FLORES PA-C ; [facility] Tussionex Pennkinetic ER 10-8 MG/5ML OR LQCR 08/20/2010 - 09/19/2010 Provider: STEVEN Banegas Diagnosis: BRONCHITIS NOS one tsp po BID PRN Last Documented On 08/20/2010 5:51PM By STEVEN FLORES PA-C ; [facility] Simvastatin 20 MG OR TABS 06/27/2010 - 12/24/2010 Prov ider: STEVEN FLORES PA-C Diagnosis: Last Documented On 06/27/2010 12:04PM By STEVEN FLORES PA-C ; [facility] Flonase 50 MCG/ACT NA SUSP 07/21/2009 - 08/20/2009 Pro vider: TANNER MYERS PA-C Diagnosis: 2 sprays q nare qd Last Documented On 07/21/2009 1:27PM By TANNER MYERS ; [facility] [place] 180 MG OR TABS 07/21/2009 - 08/20/2009 Provide r: TANNER MYERS PA-C Diagnosis: Last Documented On 07/21/2009 1:27PM By TANNER MYERS ; [facility] Protonix 40 MG OR TBEC 07/07/2009 - 07/17/2009 Provider: DARSHANA KAPOOR MD Diagnosis: REFLUX ESOPHAGIT IS Last Documented On 9 9:04AM By DARSHANA TORRES MD ; [facility] Medrol (Kash) 4 MG OR TABS 07/07/2009 - 07/13/2009 Prov ider: DARSHANA TORRES MD Diagnosis: COUGH as directed Last Documented On 9 9:04AM By DARSHANA TORRES MD ; [facility] Lisinopril-hydroCHLOROthiazi de 20-12.5 MG TABS 07/07/2009 - 08/06/2009 Provider: DARSHANA HEATON M.D. Diagnosis: Last Documented On 07/07/2009 8:34AM By Rosy ALVA ; [facility] Xyzal 5 MG OR TABS 06/19/2009 - 2009 Provider: STEVEN FLORES PA-C Diagnosis: DRUG ALLERGY NEC Last Documented On 06/19/2009 9:49PM By STEVEN FLORES PA-C ; [facility] [place] 180 MG OR TABS 06/09/2009 - 12/06/2009 Provide r: STEVEN FLORES PA-C Diagnosis: Last Documented On 06/09/2009 12:56PM By STEVEN FLORES PA-C ; [facility] oxyBUTYnin Chloride 5 MG OR TABS 06/03/2009 - 07/03/20 Provider: Diagnosis: Last Documented On 07/05/2009 11:25AM By Jonny Lamb ; [facility] Advair Diskus 250-50 MCG/DOSE IN MISC 05/13/2009 - 06/10/2009 Provider: TANNER GRIFFITH PA-C Diagnosis: COUGH Last Documented On 05/13/2009 9:31AM By TANNER MYERS ; [facility] Ventolin HFA 108 (90 Base) MCG/ACT IN AERS 05/13/2009 - 06/12/2009 Provider: TANNER GRIFFITH PA-C Diagnosis: COUGH 2 puffs q 4-6 hours prn. Last Documented On 05/13/2009 9:31AM By TANNER MYERS ; [facility] Singulair 10 MG OR TABS 05/05/2009 - 05/19/2009 Provider: STEVEN Banegas Diagnosis: PNEUMONIA, ORGAN ISM NOS Last Documented On 05/05/2009 4:06PM By STEVEN FLORES PA-C ; [facility] Advair Diskus 100-50 MCG/DOSE IN MISC 04/20/2009 - 05/18/2009 Provider: STEVEN Banegas Diagnosis: BRONCHITIS NOS one puff twice a day Last Documented On 04/20/2009 9:43AM By STEVEN FLORES PA-C ; [facility] predniSONE 20 MG OR TABS 04/20/2009 - 05/02/2009 Provi blu: STEVEN FLORES PA-C Diagnosis: BRONCHITIS NOS 3 x 3 d, 2 x 3d, 1x3d, 1/2 x 3d then d/c Last Documented On 04/20/2009 9:43AM By STEVEN FLORES PA-C ; [facility] Tussionex Pennkinetic ER 10-8 MG/5ML OR LQCR 04/20/2009 - 05/20/2009 Provider: STEVEN Banegas Diagnosis: BRONCHITIS NOS one tsp twice a day PRN Last Documented On 04/20/2009 9:43AM By STEVEN FLORES PA-C ; [facility] Proventil HFA 108 (90 Base) MCG/ACT IN AERS 04/10/2009 - 05/10/2009 Provider: STEVEN [place] Diagnosis: ACUTE BRONCHITIS 2 puffs every 4-6 hours PRN Last Documented On 04/10/2009 11:51AM By STEVEN FLORES PA-C ; [facility] Tessalon Perles 100 MG OR CAPS 04/10/2009 - 05/10/2009 Provider: STEVEN Banegas Diagnosis: ACUTE BRONCHITIS 1-2 tabs tid PRN Last Documented On 04/10/2009 11:51AM By STEVEN FLORES PA-C ; [facility] Zithromax Z-Kash 250 MG OR TABS 04/10/2009 - 04/15/2009 Provider: STEVEN Banegas Diagnosis: ACUTE BRONCHITIS as directed Last Documented On 04/10/2009 11:51AM By STEVEN FLORES PA-C ; [facility] Simvastatin 20 MG OR TABS 12/30/2008 - 06/28/2009 Prov ider: Diagnosis: Last Documented On 02/09/2009 2:46PM By RACQUEL JIMENEZ ; [facility] Medications Administered Includes: Administered Medications from this encounter No Administered Medications Recorded Results Includes: Results discussed during this encounter No Results Recorded For Specified Dates History of Present Illness Includes: History of Present Illness from this encounter No History of Present Illness Recorded Social History Description Last Updated Tobacco non-user 06/14/2022 Last Documented On 3 11:05AM ; [facility] Personal history plans to retire 10/05 0 05/27/2017 Last Documented On 3 11:05AM ; [facility] Alcohol use: 2 drinks or less per day RA RELY 05/27/2017 Last Documented On 3 11:05AM ; [facility] Education history 05/27/2017 Last Documented On 3 11:05AM ; [facility] In monogamous relationship 05/27/2017 Last Documented On 3 11:05AM ; [facility] Marital history 05/27/2017 Last Documented On 3 11:05AM ; [facility] Non-smoker 05/27/2017 Last Documented On 3 11:05AM ; [facility] Sexually active 05/27/2017 Last Documented On 3 11:05AM ; [facility] Smoking status : Never smoker 05/27/2017 Last Documented On 3 11:05AM ; [facility] Social history unchanged 05/27/2017 Last Documented On 3 11:05AM ; [facility] Currently 05/02/2016 Last Documented On 3 11:05AM ; [facility] Educational level 05/02/2016 Last Documented On 3 11:05AM ; [facility] Not using alcohol 05/02/2016 Last Documented On 3 11:05AM ; [facility] Procedures and Surgical History Surgical History Last Updated Surgical / procedural histor y SINUS SURGERY 11/02 ~THYROIDECTOMY 08/2015 benign nodules 05/02/2016 Last Documented On 3 11:05AM ; [facility] Surgical history unchanged 04/13/2015 Last Documented On 3 11:05AM ; [facility] History of total abdominal hysterectomy 04/12/2014 Last Documented On 3 11:05AM ; [facility] History of hysterectomy 06/15/19962012 Last Documented On 3 11:05AM ; [facility] Bilateral salpingo-oophorectomy 03/11/20 Last Documented On 3 11:05AM ; [facility] Breast Biopsy 03/07/2011 Last Documented On 3 11:05AM ; [facility] Stent 01/24/2010 Last Documented On 3 11:05AM ; [facility] History of cholecystectomy 01/24/2010 Last Documented On 3 11:05AM ; [facility] Medical History Includes: Medical History addressed during this encounter Description Last Updated Last mammogram date: 08/201605/27/2017 Last Documented On 3 11:05AM ; [facility] PRIMARY CARE PROVIDER : Dr. Cheryl Shukla ~ DR. LISA JOY ~DR. VALERIO BREAST SPECIALIST 04/13/2015 Last Documented On 3 11:05AM ; [facility] A colonoscopy was performed 09/26/2009 Varinder BOWLES 201304/13/2015 Last Documented On 3 11:05AM ; [facility] History of a DEXA of the lateral lumbar spine was performed 06/11/2013 04/13/2015 Last Documented On 3 11:05AM ; [facility] History of Pap smear done 03/11/201203/21 Last Documented On 3 11:05AM ; [facility] History of screening mammogram was perfo rmed 05/06/2014 04/13/2015 Last Documented On 3 11:05AM ; [facility] GERD ~hyperilpidemia ~LISA/BS O DUB ENDOMETRIOSIS ~2004- Bladder ~ ~urge incont. ~status post anterior repair 04/12/2014 Last Documented On 3 11:05AM ; [facility] No recent change in medical history 03/21 Last Documented On 3 11:05AM ; [facility] Result: normal 04/12/2014 Last Documented On 3 11:05AM ; [facility] Result: normal 04/12/2014 Last Documented On 3 11:05AM ; [facility] Status post hysterectomy DUB 04/05/2013 Last Documented On 3 11:05AM ; [facility] History of menopause 04/05/2013 Last Documented On 3 11:05AM ; [facility] LMP: 06/15/1996 04/05/2013 Last Documented On 3 11:05AM ; [facility] Last pap smear date 03/11/2012 03/11/2012 Last Documented On 3 11:05AM ; [facility] History of benign essential hypertension 03/07/2011 Last Documented On 3 11:05AM ; [facility] Taking OTC medications including Mucinex 08/20/2010 Last Documented On 3 11:05AM ; [facility] History of chronic reflux esophagitis Last Documented On 3 11:05AM ; [facility] History of thyroid disorder THYROID NODU LES 01/25/2010 Last Documented On 3 11:05AM ; [facility] Para 2 01/25/2010 Last Documented On 3 11:05AM ; [facility] Vaginal delivery 01/25/2010 Last Documented On 3 11:05AM ; [facility] 2 living children 01/15/2010 Last Documented On 3 11:05AM ; [facility] A mammogram was performed 07/30/0701/15 Last Documented On 3 11:05AM ; [facility] 2 01/15/2010 Last Documented On 3 11:05AM ; [facility] Hypertension 01/15/2010 Last Documented On 3 11:05AM ; [facility] History of essential hypertension 2008 Last Documented On 3 11:05AM ; [facility] Taking medication - prescrip tion Patient currently taking Levaquin. Finished Zithromax. Tussionex helping. Proventil inhaler seems to help for a little while 04/20/2009 Last Documented On 3 11:05AM ; [facility] Taking OTC pain medication /fever. Using Tylenol 04/10/2009 Last Documented On 3 11:05AM ; [facility] History of hypertension 02/09/2009 Last Documented On 3 11:05AM ; [facility] Surgery GALBLADDER 1978 ~BLADDER 02/20 Last Documented On 3 11:05AM ; [facility] Family History Includes: Family History addressed during this encounter Description Last Updated Maternal history of diabetes mellitus Mo ther 05/02/2016 Last Documented On 3 11:05AM ; [facility] Family history of diabetes mellitus Moth er 04/13/2015 Last Documented On 3 11:05AM ; [facility] Family history of hypercholesterolemia F ather 04/13/2015 Last Documented On 3 11:05AM ; [facility] Family history of hypertension Patient, Father 04/13/2015 Last Documented On 3 11:05AM ; [facility] Family history unchanged 04/13/2015 Last Documented On 3 11:05AM ; [facility] Spouse name: DARLING 03/07/2011 Last Documented On 3 11:05AM ; [facility] First child named 01/25/2010 Last Documented On 3 11:05AM ; [facility] No family history of malignant female br east neoplasm 01/25/2010 Last Documented On 3 11:05AM ; [facility] No family history of malignant neoplasm of the large intestine 01/25/2010 Last Documented On 3 11:05AM ; [facility] No family history of malignant neoplasm of the ovary 01/25/2010 Last Documented On 3 11:05AM ; [facility] No family history of uterine cancer 05/2010 Last Documented On 3 11:05AM ; [facility] Second child named 01/25/2010 Last Documented On 3 11:05AM ; [facility] Family history of Diabetes (m) 0 Last Documented On 3 11:05AM ; [facility] Family medical history of high blood pre ssure &hyperlipidemia(F) 01/15/2010 Last Documented On 3 11:05AM ; [facility] Brother BLOCKED ARTERIES 2008 Last Documented On 3 11:05AM ; [facility] Brother HAS MS 02/09/2009 Last Documented On 3 11:05AM ; [facility] Father 02/09/2009 Last Documented On 3 11:05AM ; [facility] Heart disease 02/09/2009 Last Documented On 3 11:05AM ; [facility] Mother 02/09/2009 Last Documented On 3 11:05AM ; [facility] Review of Systems Includes: Review of Systems [...] ctive Last Documented On 3 3:29PM ; [facility] Fish Oil Allergy THROAT, MOUTH AND EARS ITCH 04/12/2014 Active Last Documented On 3 3:29PM ; [facility] CeleBREX Allergy 02/09/2009 Active Last Documented On 3 3:29PM ; [facility] Encounters Encounter Provider Location Date Check-In Time Check-Out Time Diagnosis * PHONE CALL SHAQ Banegas [facility] 3 11:05AM 11:59PM Insurance Includes: Active Insurance Policies Plan Name Member ID Group # Subscriber Relationship Effect grant Dates 1 - [facility]/MEDICARE ADV/[employer] [id number] MONAE lieberman Clinical Notes Includes: Clinical Notes from this encounter * Progress note Date Encounter Last Documented by 12/23/2022 * PHONE CALL Last documented on 12/23/2022; 12:01 PM, SHAQ Banegas; [facility] Active Problems & Conditions - 285.9 - Anemia - 610.2 - Breast Fibroadenosis Chronic - pt s/p removal and all mammogram performed by Dr. Clifford at [facility] - 562.10 - Colonic Diverticulosis - 246.2 - CYST OF THYROID - pt to see ent and intelligence operations specialist - 530.81 - Esophageal Reflux - I10 - Essential Hypertension Benign - V88.01 - History of Hysterectomy - V15.29 - History of Prior Surgery: Stent - 272.4 - Hyperlipidemia - M25.561 - Joint Pain in the Right Knee on the Inner Side - M17.11 - Osteoarthritis Localized Primary Knee Right - 788.31 - URGE INCONTINENCE Chief Complaint Phone Call - Chief Concern: reason for call:Patient called stating that her right leg and left hip are really bothering her. In her last note you had mentioned it could have something to do with her back. Did you want to send a referral to get some more testing on her back? pt phone # for return call:[phone] Date/Initials:12/23/22 AD. Current Medication - Amiodarone HCl 200 MG [...] THYROIDECTOMY 08/2015 benign nodules and Stent. Bilateral salpingo- oophorectomy, Breast Biopsy, and surgical history unchanged. Medications: Taking - prescription Patient currently taking Levaquin. Finished Zithromax. Tussionex helping. Proventil inhaler seems to help for a little while, medication for pain [id number] /fever. Using Tylenol, and zaps-fbr-diuttst medications including Mucinex. Tests: A mammogram was [...] of uterine cancer Maternal: Diabetes mellitus Mother Plan StartCited - Other PHY ORDER/COMMENT yes please EndCited Health Reminders - Assess Tobacco Use satisfied 12/23/2022. - Mammogram satisfied 05/06/2014.
--- OUTSIDE RECORDS SUMMARY | 2024-12-30 14:19 | XMS_ITS | Clinical Summary ---
Author Organization [facility] Address [address] [place] [id number] Care Team Providers Care Chute Loader Name Role Phone Jh Tena MD Unavailable [phone] Carmen Hurst MD Unavailable Reji Clarke DO Unavailable [phone] Mabel Mullins MD Primary Care Provider Vaughn Melendez MD Unavailable [phone] Frederick Burton DMD Unavailable [phone] Doris Brenner DO Unavailable [phone] Obdulio Kumar MD Unavailable Catracho Fernandez MD Unavailable [phone] El Vo MD Unavailable [phone] Pati Yang NP Unavailable [phone] Allergies Active Allergy Reactions Criticality Noted Date Comments Celecoxib Anaphylaxis,Other (See comments),Reymundo Kam High 08/07/2009 Reaction: swelling, , Reaction: anaphylaxis, Fish Containing Products Swelling,Other (See comments) Medium Reaction: throat itching, swelling, , Fish Oil Cough Low Mupirocin Other (See comments) Low Reaction: thinks she was allergic too this med, Shellfish Containing Products Other (See comments),Anaphylaxi s High 08/21/2012 Allergy tested Reaction: throat itch, nausea, Shellfish Derived Swelling,Other (See comments) Medium Reaction: throat itching, swelling, Rweybzo-Nzj-Hsj Reductase Inhibitors Muscle pain Medium 06/18/2019 Sulfa (Sulfonamide Antibiotics) Other (See comments),Itching,Sw elling Medium 08/07/2009 Reaction: swelling, Sulfanilamide Medications fluticasone propionate (FLONASE) 50 mcg/actuation nasal spray Administer 1 spray into each nostril 2 (two) times a day as needed for allergies 023 Active magnesium oxide 400 mg magnesium capsule Take 1 tablet by mouth daily Active zoledronic acid 4 mg/5 mL injectionIndicati ons:senile osteoporosis Infuse 6.3 mL (5 mg total) into a venous catheter once for 1 dose 6.3 mL 023 Active Additional Information Patient not taking.Reported on 09/27/2024 valsartan-hydroch lorothiazide (DIOVAN-HCT) 320-25 mg per tablet Take 1 tablet by mouth daily 30 tablet 11 024 2024 Active metoprolol XL (TOPROL-XL) 25 mg extended release tablet Take 0.5 tablets (12.5 mg total) by mouth daily 45 tablet 3 024 2024 Active cholecalciferol, vitamin D3, 1,000 unit tablet,chewable Take 1 tablet/chew tab by mouth daily Active esomeprazole DR (NexIUM) 40 mg capsuleIndication s:Gastroesophagea l reflux disease with esophagitis without hemorrhage Take 1 capsule by mouth twice daily 180 capsule 1 024 Active levothyroxine (SYNTHROID) 200 mcg tabletIndications :Postoperative hypothyroidism Take 1 tablet by mouth once daily 90 tablet 024 Active amiodarone (PACERONE) 200 mg tabletIndications :Cardioversion of Atrial Fibrillation,Prev ention of Recurrent Atrial Fibrillation Take 0.5 tablets (100 mg total) by mouth daily 30 tablet 2 024 Active apixaban (ELIQUIS) 5 mg tabletIndications :atrial fibrillation Take 1 tablet (5 mg total) by mouth 2 (two) times a day 60 tablet 11 024 Active hydrALAZINE (APRESOLINE) 100 mg tablet TAKE 1 TABLET BY MOUTH THREE TIMES DAILY 270 tablet 3 024 Active ezetimibe (ZETIA) 10 mg tablet Take 1 tablet by mouth once daily 90 tablet 025 Active gabapentin (NEURONTIN) 100 mg capsuleIndication s:Nocturnal leg cramps Take 1-2 capsules (100-200 mg total) by mouth nightly 180 capsule 3 025 Active oxyBUTYnin (DITROPAN) 5 mg tabletIndications :Overactive bladder Take 1 tablet by mouth twice daily 180 tablet 025 Active potassium chloride ER 20 mEq CR tabletIndications :Hypokalemia Take 1 tablet by mouth once daily 90 tablet 025 Active furosemide (LASIX) 40 mg tabletIndications :Hypertensive heart disease with chronic diastolic congestive heart failure (HCC) Take 0.5 tablets (20 mg total) by mouth daily 025 Active cloNIDine (CATAPRES) 0.1 mg tabletIndications :Essential hypertension Take 1 tablet (0.1 mg total) by mouth 2 (two) times a day As needed for systolic blood pressure readings of 150 or higher. 60 tablet 5 025 Active NIFEdipine (NIFEdipine XL) 30 mg 24 hr tabletIndications :Essential hypertension Take 1 tablet (30 mg total) by mouth daily 30 tablet 5 021 2020 Discontinued cloNIDine (CATAPRES) 0.1 mg tablet Take 1 tablet (0.1 mg total) by mouth 2 (two) times a day As needed for blood pressure readings of 160 or higher. 60 tablet 11 023 2024 Discontinued(O ther) gabapentin (NEURONTIN) 100 mg capsuleIndication s:Nocturnal leg cramps TAKE 1 TO 2 CAPSULES BY MOUTH NIGHTLY 180 capsule 3 024 2024 Discontinued oxyBUTYnin (DITROPAN) 5 mg tabletIndications :Overactive bladder Take 1 tablet by mouth twice daily 180 tablet 024 2024 Discontinued potassium chloride ER 20 mEq CR tabletIndications :Hypokalemia Take 1 tablet by mouth once daily 90 tablet 024 2024 Discontinued furosemide (LASIX) 40 mg tabletIndications :Hypertensive heart disease with chronic diastolic congestive heart failure (HCC) Take 1 tablet by mouth once daily 90 tablet 024 2024 Discontinued amoxicillin (AMOXIL) 875 mg tablet Take 1 tablet (875 mg total) by mouth 2 (two) times a day 025 2024 Discontinued(T herapy completed) Active Problems Problem Noted Date Diagnosed Date Excoriation of right ear canal 12/29/2024 Assessment & Plan (12/29/2024 4:28 PM CDT): New finding of uncertain cause or significance. [...] reexamination in the office at that time. Nausea 02/06/2024 Assessment & Plan (02/06/2024 2:02 PM CDT): She is trouble by nausea. She also relates anything she eats g oes right through me. She denies diarrhea. The nausea could be due to multiple medications including hydrocodone and tramadol which she is received four right knee pain. She also has acid reflux for which she takes esomeprazole. Abdominal exam is benign. We will consider additional evaluation as needed. Pseudogout 10/15/2023 Overview (12/03/2023): Right knee. Assessment & Plan (03/14/2024 2:55 PM CDT): Chronic, uncontrolled. The patient says her orthopedic surgeon, Dr. Vo, is skeptical of the pseudogout diagnosis and plans a right knee arthroscopy to evaluate for a possible friable vessel that might be the cause of a hemarthrosis she experienced about five months ago. Diagnostic right knee arthrocentesis on 10/16/2023 showed blood and calcium pyrophosphate crystals. She has not taking the colchicine. Currently the knee is mildly swollen posteriorly per patient report. Gait is not antalgic. She will keep her followups with orthopedics. Assessment & Plan (12/03/2023 12:11 PM CREDIT COMPLIANCE OFFICER): After they removed fluid from her right knee, there was significant pain relief and it has not recurred. She takes Tylenol as needed. She uses diclofenac gel. She also has tramadol which she rarely uses because it makes her feel woozy. Assessment & Plan (11/08/2023 11:53 AM CREDIT COMPLIANCE OFFICER): She developed pain and swelling in her right knee. Initially sepsis was being considered, but cultures were negative. She did have calcium pyrophosphate crystals on the synovial fluid analysis indicative of pseudogout. We gave her a course of oral steroids because her orthopedic surgeon did not want to inject the knee. It did help the pain and swelling, but symptoms persisted so we added colchicine. She took two doses and is tolerating it well. For future attacks, we recommended that she consider a steroid injection in the affected joint. 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 Assessment & Plan (10/29/2023 3:02 PM CREDIT COMPLIANCE OFFICER): We ordered a PTH. Closed fracture of proximal end of left humerus with routine healing 04/24/2023 Overview (05/12/2023): Seeing Dr. Fernandez Assessment & Plan (09/12/2023 2:55 PM CREDIT COMPLIANCE OFFICER): She requested a refill of tramadol to help with pain that sometimes interferes with sleep. She is getting a second opinion about a possible left shoulder replacement from Dr. Vo. She is in physical therapy with minimal improvement in range of motion. She also complains of left hip pain. X-rays showed some DJD. Her left knee also acts up from time to time but this is more chronic. Assessment & Plan (06/23/2023 5:28 AM CDT): It has been seven weeks since her left humerus fracture. It is still sore and interferes with sleep. She is starting physical therapy tomorrow. Due to the recent fragility fracture, we recommended medical treatment of her low bone density. She got her first dose of Reclast yesterday which she tolerated well. She continues on calcium, and vitamin-D level was normal. Assessment & Plan (05/15/2023 8:52 AM CDT): She fell and fractured her proximal left humerus a few weeks ago. She saw Dr. Fernandez at [facility]. Her arm is in a sling during the daytime when she is out of the house. She does not wear it at home. She continues to have some pain but is not tolerating hydrocodone which makes her nauseated. Most of her pain is actually in the left shoulder blade area indicating some probable strain from her fall. She will keep her follow ups with Dr. Fernandez. Other insomnia 04/24/2023 Assessment & Plan (05/12/2023 11:33 AM CDT): She is having a little trouble sleeping due to the pain in her left proximal humerus and upper posterior left back, but does not seem to need anything pharmacologic for this. Sanders's esophagus 04/03/2023 Overview (05/11/2023): Focal intestinal metaplasia at Z-line, no dysplasia or malignancy, Dr. Kumar. Assessment & Plan (09/04/2023 11:41 AM CREDIT COMPLIANCE OFFICER): She is on Nexium twice a day. Continue same. Assessment & Plan (06/04/2023 12:31 PM CDT): She has persistent acid reflux type symptoms and epigastric bloating despite being on Nexium twice a day. She wondered about her options. We discussed trying a more potent PPI, or referring her for possible surgical treatment. She would like to try the medicine first so we sent in Dexilant. We discussed the risks of PPI including effects on bone calcium which is already an issue, see discussion elsewhere. Dysphagia 03/11/2023 Heartburn 03/11/2023 Iron deficiency 03/11/2023 Overview (04/03/2023): Slightly decreased iron saturation, normal iron level and ferritin, normal hemoglobin. Pulmonary hypertension 01/27/2023 Overview (02/13/2024): Transthoracic echo: Moderate pulmonary hypertension based on right ventricular systolic pressure. Estimated peak RVSP is 51 to 55 mmHg. Mild tricuspid regurgitation. Assessment & Plan (02/14/2024 6:53 PM CDT): Pulmonary hypertension may be contributing to swelling in her legs, we will discuss with Cardiology, and consider pharmacologic treatment if indicated. Left hip pain 01/02/2023 Overview (03/01/2023): Saw TERA Sinha, imaging negative except for moderate facet hypertrophy in lower lumbar levels. Assessment & Plan (03/03/2023 1:03 PM CDT): The left hip pain might be referred from her back where lumbar x-ray showed facet hypertrophy in the lower lumbar areas. She improved with physical therapy. However, she still has right k nee pain which seems to be more in the posterior aspect of the upper calf. Steroid injections in the knee did not help. She takes tramadol as needed for this pain. Assessment & Plan (01/02/2023 3:11 PM CDT): Presented c/o L hip/buttock pain but had tenderness over lumbar area. Tenderness as noted above, no acute findings on exam. Will order XR of lumbar spine to r/o structural changes. Will consult with Dr. mullins about ordering Tramdol PRN for pain. Tylenol and heat/ice as needed. Will REFER to PT for further evaluation and treatment. Follow in 6 weeks. Hypokalemia 08/19/2022 Assessment & Plan (10/29/2023 3:06 PM CREDIT COMPLIANCE OFFICER): Potassium was slightly low in the ER recently. We requested follow-up testing to see if replacement needs to be increased. Assessment & Plan (08/26/2022 1:02 PM CREDIT COMPLIANCE OFFICER): Potassium is a little low, probably due to the effects of combined furosemide and hydrochlorothiazide. We will put her on a little potassium supplement. She already takes a magnesium supplement. Acute pain of right knee 06/07/2022 Assessment & Plan (09/10/2022 4:05 PM CREDIT COMPLIANCE OFFICER): She developed acute pain in her right knee and calf after getting off a bar stool and landing sharply on some asphalt. This happened back in April or early May. Imaging of the knee was negative for injury but did show some moderate DJD. Ultrasound was negative for a Scott's cyst, but did show a small amount of prepatellar bursa fluid. She then went to an orthopedic surgeon in [place] who ordered an MRI. We never got a copy of this report. She received a c ortisone injection but is still having pain, mostly in the posterior calf area. She ambulates without apparent difficulty. There is a small amount of swelling in both lower legs, similar to her baseline. We will get a copy of the MRI for review. She declines referral to Orthopedics for a second opinion right now. We will re-evaluate when she returns in six months. Assessment & Plan (06/07/2022 11:37 AM CDT): Patient presents with right knee/popliteal pain x 3-4 weeks. She reports it occurred after landing hard on her feet on asphalt surface from high barstool and has persistently gotten worse. Pain worse with standing and better with rest. She on exam has pain with palpation of the rt popliteal and rt medial aspect. Concern is possible Bakers cyst vs arthritic changes. We will do xray imaging to r/o any acute bony abnormality. We will also do US of the rt popliteal to evaluate for possible cyst. She was encouraged to rest, elevate, use ice and compression to the rt knee. Further recommendations pending imaging. Abnormal stress test 01/16/2022 Overview (08/25/2022): Added automatically from request for surgery [id number], cardiac cath on 01/31/2022, Dr. Tena: 1. No significant obstructive coronary artery disease. 2. 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 3. Normal left ventricular systolic function. 4. Mildly elevated left ventricular diastolic pressure. 5. Systemic hypertension without renal artery stenosis. 6. Successful vascular access closure. Sensorineural hearing loss (SNHL), bilateral Overview (02/21/2022): Higher frequencies, moderate, see audiology report in media. Assessment & Plan (02/21/2022 11:00 AM CDT): She had an audiogram ordered by Dr. Brenner. This showed moderate sensorineural higher frequency hearing loss which was symmetrical. She has associated tinnitus in the left ear which is quite bothersome. We discussed the treatment of tinnitus which primarily involves use of masking noises such as white noise. We encouraged her to follow-up with audiology and Dr. Brenner. Tinnitus of both ears 11/16/2021 Assessment & Plan (04/08/2022 4:24 PM CDT): Cancel out noise in ears with radio, loud fan or other background noise Call if room spinning returned Avoid caffeine and keep blood pressure under good control 64 ounces of caffeine free and soda free fluid daily Low salt diet Assessment & Plan (11/23/2021 3:14 PM CREDIT COMPLIANCE OFFICER): With the onset of vertigo last Friday, she had some tinnitus, but denies hearing loss. The vertigo is resolved but tinnitus persists. Ear exam shows normal TMs. Molina test lateralizes to the left side. Rinne test is normal bilaterally. The tinnitus probably will resolve over time, but if not, she should call so we can refer her to Dr. Brenner who she has seen before for epistaxis. Shortness of breath 02/22/2021 Assessment & Plan (05/02/2021 1:23 PM CDT): She gets short of breath with exertion, but says it is improved since being on a higher dose of diuretic. Recent echocardiogram shows good LV systolic function. Continue same. Check follow-up labs for kidney function and potassium. Return in three months. Assessment & Plan (02/22/2021 3:08 PM CDT): Patient is reporting she feels as though over the last couple days her abdomen is bloated and that she cannot take a deep breath in. On exam today her oxygen saturation was normal at 99%. An EKG was done to r/o ischemic process and it appears unchanged from previous no acute findings. She reports she has been taking lasix at increased dose of 40mg a day without change in symptoms. Given this we will do CXR to r/o any volume overload. We will also do CBC, CMP and BNP as well. Based on labs if no acute findings can consider medication adjustment for better control of her diastolic HF. We can change her irbesartan to Entresto as it has a recent indication for diastolic HF and it may help with increased diuresis. Lower extremity edema 02/14/2021 Assessment & Plan (02/14/2024 6:52 PM CDT): The degree of swelling in her legs is approximately unchanged after being off diuretics for about a week. However she feels puffy, especially in her face, and is worried about having another episode of diastolic heart failure that put her in the hospital at one point. Once we get labs done, we will most likely put her back on a loop diuretic. Assessment & Plan (02/21/2022 10:58 AM CDT): He trace pitting edema in her legs today. Continue current therapy. Assessment & Plan (05/02/2021 1:25 PM CDT): The swelling in her lower legs is much better on a higher dose of diuretic. We are checking follow-up labs. We sent in a refill of her diuretic. Assessment & Plan (03/01/2021 2:56 PM CDT): Edema is improved today. Still has edema that is trace L>R. She will continue diuretic, elevation and compression stockings. Will monitor. Assessment & Plan (02/22/2021 3:45 PM CDT): Patient has persistent LE edema L>R despite increase in diuretic therapy. We will check BNP to look at volume status. We will also check CBC to r/o any anemia. Will look at electrolytes and renal function with increase in diuretic. If tolerating will continue at present dose and consider the addition of Entresto to possible help increase diuresis. Assessment & Plan (02/14/2021 4:11 PM CDT): Swelling of both lower legs from about mid tay to ankles, worse on the left side. Denies SOB. HCTZ was recently discontinued due to hyponatremia, which has since resolved. Consulted with Dr. Evans who advises her to increase lasix to 40mg daily for the next week, then go back to 20mg once daily PRN. She is to let us know if she does not improve and will need to set up f/u appt. Encouraged her to keep her legs elevated as much as possible. Low salt diet. Hiatal hernia 10/31/2020 Overview (12/27/2020): See CT report. Acute left-sided low back pain with left-sided s ciatica 10/23/2020 Overview (03/01/2023): Saw TERA Sinha, plain imaging negative except for facet hypertrophy of lower lumbar levels. Assessment & Plan (03/03/2023 12:43 PM CDT): Her left-sided low back pain and hip pain and sciatica improved with physical therapy. She also takes tramadol as needed. Continue same. Assessment & Plan (01/02/2023 3:11 PM CDT): Presented c/o L hip/buttock pain but had tenderness over lumbar area. Tenderness as noted above, no acute findings on exam. Will order XR of lumbar spine to r/o structural changes. Will consult with Dr. mullins about ordering Tramdol PRN for pain. Tylenol and heat/ice as needed. Will REFER to PT for further evaluation and treatment. Follow in 6 weeks. Assessment & Plan (10/29/2020 3:41 PM CREDIT COMPLIANCE OFFICER): About three or four days ago she noted pain between her shoulder blades. She describes it as sharp. It seems to be worse with certain movements or in certain positions, for example standing up to make the bed. If she lays flat it goes away. When it first started it was bad enough to keep her up most of the night, but has lessened in severity since then. Tylenol did not help. She cannot take nonsteroidals because she is on Xarelto. She denies nausea, worsening of the pain with food ingestion. She has a slight morning cough from her allergies, but otherwise denies cough, fever, or shortness of breath. There are no significant or GI symptoms other than the possible association with heartburn although heartburn seems to be controlled with her current dose Nexium. Exam is fairly unremarkable. She has some tenderness of the paraspinous muscles between the shoulder blades. She has some mild epigastric to right upper quadrant tenderness on palpation without guarding. She has had her gallbladder out. Lungs are clear, oxygen saturation is normal. Remainder of cardiovascular, abdominal and extremities exam is unremarkable. The cause of her pain is uncertain. I suspect a musculoskeletal cause. We will get a thoracic spine series to evaluate for possible compression fracture. A GI cause is possible such as heartburn. She has had her gallbladder out, making a gallstone less likely. Consider additional workup depending on how things go. For the moment the pain seems to be improving but she would like something stronger to help her sleep at night. We sent in some tramadol, risks of medication discussed. Follow-up in 1-2 weeks if not back to baseline. Nocturnal leg cramps 05/20/2020 Assessment & Plan (05/15/2023 8:55 AM CDT): She complains of cramps in her thighs. She denies low back pain. She did have some hip pain recently, I believe left hip, but nothing new. It occurs at night and during the daytime. Musculoskeletal and vascular exam of the lower extremities is normal. The cause of her symptoms is unclear. We encouraged her to stay active, walk but be careful, do some gentle stretching. We ordered a BMP and a magnesium level. Assessment & Plan (12/28/2020 9:35 AM CREDIT COMPLIANCE OFFICER): Nocturnal leg cramps are improved with gabapentin. Continue same. Assessment & Plan (09/28/2020 11:41 AM CREDIT COMPLIANCE OFFICER): She has had a slight benefit from gabapentin in her nocturnal leg cramps. She can only take 100 mg, otherwise she is excessively sedated. Continue same. Assessment & Plan (08/24/2020 1:07 PM CREDIT COMPLIANCE OFFICER): She has been having cramps in her legs. It started a few months ago. She read on the Internet that it could be due to low magnesium so she started taking a supplement. We did check electrolytes and a magnesium level which are all normal except for a somewhat low sodium. Review of her symptoms suggest that these are mostly nocturnal leg cramps. She has excellent pulses in both feet. She does not seem to have claudication. She has tried stretching at night and this has been unhelpful. She is on a multivitamin. We will get her started on some gabapentin at bedtime, risks of medication discussed. Return in one month to see how she is doing. Dyspepsia 05/09/2020 Overview (08/22/2020): Mostly postprandial. EGD -> retained food. Assessment & Plan (05/15/2023 8:53 AM CDT): She had an upper endoscopy recently which demonstrated some relatively mild gastritis, and focal areas of Barretts metaplasia at the Z-line. The dose of Nexium with doubled by GI, Dr. Kumar. The patient is still experiencing dyspeptic symptoms. Abdominal exam is benign. Hemoglobin is back to normal. Lab Results Component Value Date WBC 8.2 03/11/2023 HGB 12.6 03/11/2023 HCT 37.3 03/11/2023 MCV 82.3 03/11/2023 LABPLAT 376 03/11/2023 Assessment & Plan (05/02/2021 1:28 PM CDT): She continues to have postprandial bloating and dyspeptic symptoms. EGD showed some retained food in the stomach, but no outlet obstruction. She does not have ronald diabetes, but some borderline elevations of blood sugars have been noted in the past. We discussed options for therapy including metoclopramide which has associated risks for tardive dyskinesia. She continues on Nexium for heartburn symptoms. Depending on how things go, consider referral to tertiary care. Assessment & Plan (01/07/2021 4:40 PM CDT): She continues to complain of epigastric bloating. I suspect this is due to the previously diagnosed poor gastric motility manifested by retained food at the time of EGD last summer. She also has a small hiatal hernia. Gas-X and Nexium are not helping her sensation. I recommended that she eat smaller meals to see if this helps. We discussed possible referral to surgery for the hiatal hernia in case this is part of the problem. A Raquel may be needed. She wants to defer for now. Assessment & Plan (05/09/2020 4:28 PM CDT): Seems mainly postprandial. Start Reglan 3 times daily before meals. Follow up in 1 month. Discussed with the patient diet modifications for gastroesophageal reflux disease and low-fiber to improve gastric emptying Gastroesophageal reflux disease 03/02/2020 Overview (05/11/2023): Added automatically from request for surgery [id number], EGD 04/04/2020: Mild esophageal candidiasis, diffuse gastropathy with some retained food, small HH, Dr. Melendez, [facility]. Follow up endoscopy 04/03/2023, mild reactive gastropathy, focal Sanders's metaplasia at [place], no candidiasis. Assessment & Plan (05/12/2023 11:30 AM CDT): Continue higher dose Nexium. She also has Zofran as needed for nausea which she says is not a major problem. She is not taking hydrocodone which was the cause of her nausea. Assessment & Plan (03/14/2023 10:35 PM CDT): EGD 03/2020 showed mild diffuse gastropathy and esophageal candidiasis as well as a small hiatal hernia and small amount of retained food in stomach. Now with worsening heartburn at night time despite nexium 40mg daily which previously controlled her symptoms. Has globus sensation relieved with burping of white phglem No acid or food regurgitation Maybe some occasional dysphagia, no odynophagia Eats early dinner but likes to eat apple grapes or yogurt at night before bedtime No n/v, abdominal pain or weight loss Labs from 02/26/2023 showed decreased chronic low sodium of 128 and chloride 92 otherwise normal BMP, normal LFTs, TSH from 07/2022, mildly decreased hemoglobin 11.8 from 01/2022 Plan Will plan for EGD given refractory heartburn Continue nexium 40mg daily Antireflux lifestyle modifications Assessment & Plan (03/03/2023 1:02 PM CDT): She complains of worsening esophageal dysphagia despite taking Nexium every day. EGD about three years ago showed mild Steff esophagitis, diffuse gastropathy and some retained food. She also had a small hiatal hernia. The cause of her current symptoms is unclear. She describes food getting stuck in the about mid esophagus followed by bilious regurgitation, but no food regurgitation. We will refer back to GI for a probable follow-up EGD. Assessment & Plan (12/28/2020 9:38 AM CREDIT COMPLIANCE OFFICER): She is on Nexium for heartburn symptoms. It does not control her abdominal bloating which could have other causes. Assessment & Plan (10/29/2020 3:42 PM CREDIT COMPLIANCE OFFICER): This could be causing or contributing to the pain between her shoulder blades, although she says her heartburn is currently pretty well-controlled on Nexium. Assessment & Plan (05/09/2020 4:27 PM CDT): Doing well with Nexium daily. Advised to continue the same. Hyponatremia 12/22/2019 Assessment & Plan (12/29/2024 4:29 PM CDT): Intermittent/recurrent, we have struggled to keep her [...] 12/21/2024 BUNSER 13 12/21/2024 CREATININE 0.81 12/21/2024 Assessment & Plan (07/02/2024 5:13 AM CDT): Chronic, present for four or more years, currently stable. It is likely at least partly due to dual diuretic therapy with hydrochlorothiazide 25 mg daily and furosemide 40 mg daily. We will check again before her next visit in six months. Lab Results Component Value Date GLUCOSE 107 06/28/2024 CALCIUM 8.8 06/28/2024 SODIUM 131 (L) 06/28/2024 POTASSIUM 3.5 06/28/2024 CO2 30 06/28/2024 CHLORIDE 89 (L) 06/28/2024 BUNSER 12 06/28/2024 CREATININE 0.89 06/28/2024 Assessment & Plan (03/11/2024 11:52 AM CDT): Chronic, fair control. With the current modification of diuretic therapy and liberalization of salt intake, edema is gone and sodium is acceptable. Follow-up in three months. Lab Results Component Value Date GLUCOSE 102 02/23/2024 CALCIUM 9.1 02/23/2024 SODIUM 134 (L) 02/23/2024 POTASSIUM 4.0 02/23/2024 CO2 23 02/23/2024 CHLORIDE 98 02/23/2024 BUNSER 11 02/23/2024 CREATININE 0.71 02/23/2024 Assessment & Plan (02/14/2024 6:51 PM CDT): She has moderate to severe but asymptomatic hyponatremia which is most likely due to her diastolic heart failure. She does not restrict sodium at home. She has a modest water restriction of 40 oz a day, but probably gets additional fluids with meals. We ordered follow-up labs now that she has been off her diuretics for about a week. We will discuss management with cardiology which may include further fluid restriction and/or liberalization of sodium intake or use of urea sodium. Review of her labs is negative for evidence of hyperglycemia or increased serum proteins. Assessment & Plan (02/07/2024 3:08 PM CDT): She was scheduled for a right knee arthroscopy at [facility] to remove blood and control possible ongoing bleeding in the right knee. The surgery was canceled because her sodium was too low. She has chronic hyponatremia, partly constitutional, partly due to dual diuretic therapy. We will have her stop the furosemide. She can continue the valsartan HCTZ and other medications. Check a follow-up BMP on Friday. Consider use of urea sodium to get her sodium level up to acceptable for the anesthesiologist. Assessment & Plan (12/03/2023 12:10 PM CREDIT COMPLIANCE OFFICER): Her latest sodium is stable or even a little improved. We will continue to monitor periodically. Lab Results Component Value Date GLUCOSE 116 10/29/2023 CALCIUM 9.3 10/29/2023 SODIUM 131 (L) 10/29/2023 POTASSIUM 3.4 10/29/2023 CO2 28 10/29/2023 CHLORIDE 88 (L) 10/29/2023 BUNSER 12 10/29/2023 CREATININE 0.79 10/29/2023 Assessment & Plan (11/08/2023 11:52 AM CREDIT COMPLIANCE OFFICER): Labs done in the ER recently showed moderate hyponatremia, nothing really new for this patient. The cause is unknown but could relate to some of her diuretic use. She tolerates this level of hyponatremia without definite symptoms of concern. Lab Results Component Value Date GLUCOSE 131 10/15/2023 CALCIUM 9.3 10/15/2023 SODIUM 128 (L) 10/15/2023 POTASSIUM 3.0 (L) 10/15/2023 CO2 30 10/15/2023 CHLORIDE 84 (L) 10/15/2023 BUNSER 13 10/15/2023 CREATININE 0.81 10/15/2023 Assessment & Plan (09/04/2023 11:43 AM CREDIT COMPLIANCE OFFICER): Sodium is stable or even slightly improved compared to her usual baseline. Lab Results Component Value Date GLUCOSE 106 08/28/2023 CALCIUM 9.2 08/28/2023 SODIUM 134 (L) 08/28/2023 POTASSIUM 3.9 08/28/2023 CO2 28 08/28/2023 CHLORIDE 95 (L) 08/28/2023 BUNSER 13 08/28/2023 CREATININE 0.85 08/28/2023 Assessment & Plan (03/17/2023 1:55 PM CDT): She has chronic hyponatremia which may be partly due to diuretic therapy needed to keep blood pressure and edema under control. However, she has no symptoms of concern from the hyponatremia, and it has been stable over a considerable period of time. We will continue to monitor periodically with a follow-up in six months. Lab Results Component Value Date GLUCOSE 98 02/26/2023 CALCIUM 9.1 02/26/2023 SODIUM 128 (L) 02/26/2023 POTASSIUM 3.9 02/26/2023 CO2 25 02/26/2023 CHLORIDE 92 (L) 02/26/2023 BUNSER 14 02/26/2023 CREATININE 0.85 02/26/2023 Assessment & Plan (08/26/2022 1:03 PM CREDIT COMPLIANCE OFFICER): Sodium is little lower than her last measurement, but still within her usual range. She seems asymptomatic with his moderate hyponatremia. We will check again in one month and at her return in six months. Assessment & Plan (02/21/2022 10:58 AM CDT): She continues to have a mild hyponatremia, but there is no progression over recent labs. She is tolerating furosemide 40 mg daily to control swelling in her legs and hands. Assessment & Plan (12/02/2021 1:59 PM CREDIT COMPLIANCE OFFICER): She has had problems with low-sodium in the past, attributed to a combination of hydrochlorothiazide and furosemide to control swelling in her legs and blood pressure. Systolic blood pressure is mildly elevated today. She got IV fluids in the ER at [place]. We are checking follow-up electrolytes. Consider additional workup or changes in medications depending on the results of lab tests ordered today. Assessment & Plan (01/29/2021 12:16 PM CDT): With discontinuation of her hydrochlorothiazide, sodium is back to normal. However blood pressure is moderately elevated. We have adjusted her medications again and we will discuss with Cardiology. Lab Results Component Value Date GLUCOSE 87 01/26/2021 CALCIUM 8.9 01/26/2021 SODIUM 137 01/26/2021 POTASSIUM 4.2 01/26/2021 CO2 26 01/26/2021 CHLORIDE 103 01/26/2021 BUNSER 10 01/26/2021 CREATININE 0.71 01/26/2021 Assessment & Plan (01/07/2021 4:38 PM CDT): Sodium is still low, even a bit lower. I am pretty sure this is due to diuretic therapy for blood pressure and diastolic heart failure. We stopped her furosemide previously but she remains on a thiazide. We discussed possibly eliminating the thiazide, but she is worried that it will result in an exacerbation of swelling and diastolic heart failure symptoms. We will check a follow-up sodium in a couple of weeks to make sure there are no trends, and see her back in one month. We will discuss treatment with Cardiology when Dr. Tena is available. Consider additional workup and or referral as needed. Assessment & Plan (10/12/2020 4:30 PM CREDIT COMPLIANCE OFFICER): Sodium is stable but still low. It could be partly due to her diastolic heart failure, partly to the use of a thiazide diuretic. We did stop her loop diuretic. The swelling in her legs is similar to previous exams. Some of this is probably due to her obesity and venous insufficiency. Weight loss would be helpful. We discussed this today. Assessment & Plan (08/24/2020 1:06 PM CREDIT COMPLIANCE OFFICER): She has a mild to moderate hyponatremia, likely due to ongoing diuretic therapy with furosemide and hydrochlorothiazide. We will monitor closely and discuss treatment with Cardiology. Assessment & Plan (02/17/2020 11:08 AM CDT): She has had some hyponatremia being on a thiazide diuretic and Lasix to control swelling in her ankles from diastolic heart failure. Last BMP was about a month ago, and the Lasix was cut back at that time. We will check a follow-up labs and get back with her about the results and any needed changes in medication. Chronic constipation 12/19/2019 Overview (12/28/2020): Moves bowels every 3 days or so. Assessment & Plan (05/02/2021 1:29 PM CDT): The MiraLax is not keeping her bowels regular, so I suggested an increased dose. Last colonoscopy was in 2013 and was normal at that time, but she thinks the constipation is getting worse. We will consider referral back to GI for this problem if the higher dose of MiraLax is not helping. Assessment & Plan (03/01/2021 2:52 PM CDT): Patient continues to report feelings of bloating and constipation. KUB was done at visit last week and it revealed moderate-large amount of stool. She did use magnesium citrate and felt better x 1 day then symptoms returned. She has had EGD before that showed there may be delayed gastric imaging. Have discussed with Dr. Mullins and at this time we will attempt medication changes to see if that improves symptoms. Will dc the nifedipine, stop calcium supplement and ensure that her multi vitamin does not contain iron. If these changes fail will do a gastric emptying study. She will continue miralax at the present time. Assessment & Plan (02/22/2021 3:44 PM CDT): Patient has known history of constipation for which she takes daily Miralax. She reports recently however, increasing constipation and feeling as though her abdomen is bloating. On exam she had some LLQ tenderness suggestive of constipation. Will do KUB to r/o obstruction. Assessment & Plan (12/28/2020 9:40 AM CREDIT COMPLIANCE OFFICER): For the past year or so, she has had some constipation. She moves her bowels about every three days and they are hard. There is no blood in the stools. Recommend increased fiber diet to about 35 g per day, and daily Miralax as a trial. Return in one month. Hypertensive heart disease w ith diastolic congestive heart failure 09/21/2019 Overview (02/13/2024): Echo on 11/30/2020: Normal left ventricular systolic function with no focal wall motion abnormalities. Normal left ventricular size. Normal left ventricular wall thickness. There is restrictive diastolic dysfunction Grade III to IV. Ejection fraction is visually estimated at 65 % Nuclear stress test, 01/09/2022, [facility]: Small reversible ischemic defect in the basal inferior segment, cardiology following. Assessment & Plan (12/29/2024 12:06 PM CDT): Chronic, preseng for 5-6 years or more, recommend continuing furosemide 20 mg daily and other cardiac medications listed elsewhere. The dose of furosemide was decreased recently due to hyponatremia with a follow-up BMP scheduled to be done in a couple of weeks. Assessment & Plan (07/02/2024 5:12 AM CDT): Chronic, present for about five years, currently controlled on multiple medications including valsartan-hydrochlorothiazide 320-25 mg daily, metoprolol XL 12.5 mg daily, hydralazine 100 mg 3 times daily, clonidine 0.1 mg twice daily for systolic blood pressure greater than 160, and furosemide 40 mg daily. Follow-up in six months. Assessment & Plan (03/11/2024 11:51 AM CDT): Chronic, controlled. Her hypertensive heart disease was manifested mostly by swelling in her legs. It is well controlled now on the current dose of furosemide. We eliminated the thiazide diuretic from her blood pressure pill due to hyponatremia. Return in three months with labs. Assessment & Plan (02/14/2024 6:49 PM CDT): She has a history of diastolic heart failure with grade 3-4 diastolic dysfunction on echocardiogram several years ago. On a more recent echo, no mention was made of diastolic dysfunction, so there may have been some improvement. However she continues to have problems with fluid retention. We stopped her diuretics because of severe hyponatremia. Exam is pretty stable at this time with regard to objective edema, but she feels puffy in her face. We ordered follow-up labs now that she has been off diuretics for about a week. Once we have those results, most likely we will reintroduce a diuretic. An early follow up with cardiology may also be appropriate. Assessment & Plan (01/30/2023 9:54 AM CDT): Chronic problem managed in conjunction with Dr. Tena (cardio). No acute findings on exam today. Sodium still low at 129. Changed Valsartan/HCTZ to plain valsartan. Continue all other meds as rxd. Avoid salt and caffeine. Keep follow up and repeat labs next month. Assessment & Plan (08/26/2022 1:01 PM CREDIT COMPLIANCE OFFICER): She sees Dr. Tena annually. She is on diuretics which contribute to some chronic hyponatremia. Symptoms seem reasonably well controlled at this time with no complaints of significant dyspnea. Assessment & Plan (08/02/2021 12:26 PM CDT): She still gets short of breath with minimal exertion. She can barely walk for 10 minutes on her treadmill. She does not get exertional chest pains, but does get some chest discomfort that wakes her up at night and is probably due to chronic acid reflux that is only partially controlled with Nexium. She also has gastroparesis which could be contributing to her nocturnal chest symptoms. Cardiac catheterization three years ago was negative for significant coronary disease. Assessment & Plan (05/02/2021 1:26 PM CDT): Systolic blood pressure is somewhat borderline. She gets similar readings at home. She says the Entresto is too expensive for her so we changed to losartan. We discussed that she should check blood pressure regularly at home and call me if there is any adverse trends. Follow-up with Dr. Tena as scheduled. Assessment & Plan (03/01/2021 2:54 PM CDT): Patient blood pressure well controlled today and edema somewhat improved. Patient continues to feel as though she cannot take a deep breath in at times, but this is most likely d/t her bloating. CXR last week was negative for pulmonary vascular congestion and effusion and pbnp only slightly elevated. She was transitioned to Entresto last week and is tolerating well. We will continue to up-titrate medication for control of heart failure and BP. We will continue to try to decrease the amount of medications she is taking as well. Will dc nifedipine today. Assessment & Plan (01/29/2021 12:17 PM CDT): She feels bloated. She has a little swelling in her legs. She has trouble putting on her rings. It sounds like she needs a diuretic again. We will give her furosemide to be used as needed in the morning. Follow-up in two days for a blood pressure check and to see how she is doing. Assessment & Plan (12/28/2020 9:37 AM CREDIT COMPLIANCE OFFICER): There is no pitting edema in her legs. Lungs are clear. She seems to have better exercise tolerance, walking on the treadmill. Continue to monitor. Assessment & Plan (09/28/2020 11:43 AM CREDIT COMPLIANCE OFFICER): Diastolic heart failure is probably contributing to fluid retention and hyponatremia. Currently she seems reasonably well controlled. Oxygen saturation is normal and lungs are clear. There is some swelling in her legs but it is not severe. Continue current therapy. Assessment & Plan (08/24/2020 1:05 PM CREDIT COMPLIANCE OFFICER): She has no swelling in her legs. Lungs are clear and oxygen saturation is normal. Continue current therapy. Chronic pain of both knees 06/28/2019 Overview (08/22/2020): BILATERAL KNEE OSTEOARTHRITIS on imaging. 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 Overactive bladder 01/14/2019 Overview (08/22/2020): Especially nocturia, on oxybutinin. Assessment & Plan (01/30/2023 9:52 AM CDT): Particularly at night, mildly controlled with oxybutinin. Refilled in office today. Assessment & Plan (08/02/2021 12:27 PM CDT): She says the Ditropan is helping her urinary frequency. She denies dysuria or hematuria. Continue same. Assessment & Plan (02/17/2020 11:09 AM CDT): She urinates frequently, especially through the night. She is on oxybutynin which may be helping a little bit. Continue same. Assessment & Plan (01/14/2019 6:43 PM CDT): Clinically improved with oxybutynin 5 mg bid Elevated glucose 01/14/2019 Overview (08/22/2020): Normal HgbA1C as of January 2020. Assessment & Plan (01/14/2019 6:43 PM CDT): Fasting labs ordered. Postoperative hypothyroidism 06/03/2018 Overview (02/17/2020): Thyrodectomy for multinodular goiter and dysphagia, Dr. Yin. Assessment & Plan (02/13/2024 1:04 PM CDT): Hypothyroidism can be a cause of hyponatremia, but her thyroid replacement has been appropriate, last checked about five months ago. Continue current therapy. Assessment & Plan (09/04/2023 11:44 AM CREDIT COMPLIANCE OFFICER): She takes levothyroxine. We are monitoring periodically with labs. Lab Results Component Value Date TSH 1.23 08/28/2023 Assessment & Plan (03/03/2023 1:05 PM CDT): We will check a TSH before her next visit in about six months. Lab Results Component Value Date TSH 0.74 08/19/2022 Assessment & Plan (08/26/2022 1:04 PM CREDIT COMPLIANCE OFFICER): She is on a stable dose of levothyroxine. Continue same. Lab Results Component Value Date TSH 0.74 08/19/2022 Assessment & Plan (02/21/2022 10:59 AM CDT): Recent TSH is normal. Continue current replacement dose of levothyroxine 200 mcg daily. She knows to take it first thing in the morning by itself with plenty of water, and to wait 1-2 hours before taking other medications or eating. Assessment & Plan (08/02/2021 12:28 PM CDT): She is on a stable dose of thyroid replacement. We will monitor labs periodically. Lab Results Component Value Date TSH 1.06 09/21/2020 Assessment & Plan (05/02/2021 1:24 PM CDT): She is on a relatively high dose of replacement therapy. We monitor TSH periodically. Lab Results Component Value Date TSH 1.06 09/21/2020 Assessment & Plan (12/28/2020 9:34 AM CREDIT COMPLIANCE OFFICER): TSH is normal on current therapy. I do not think this is contributing to her hypothyroidism. Lab Results Component Value Date TSH 1.06 09/21/2020 Assessment & Plan (08/24/2020 1:09 PM CREDIT COMPLIANCE OFFICER): She is on a fairly high replacement dose. We will check a follow-up TSH before her next visit in one month. Assessment & Plan (02/17/2020 11:10 AM CDT): She had a multinodular goiter and some dysphagia. There was also a family history of thyroid cancer, so her thyroid was removed by Dr. Yin a few years ago. She is on thyroid replacement. Last TSH was slightly elevated. We will check a follow-up and adjust the dose as needed. Assessment & Plan (01/14/2019 6:42 PM CDT): Stable. Cont. Current meds. Levothyroxine 175 mcg qd, labs ordered. Assessment & Plan (06/03/2018 11:22 AM CDT): Labs ordered, will follow, continue levothyroxine 175mcg qd for now. Atrial fibrillation 01/21/2018 Overview (12/28/2024 7:41 PM CDT): >>OVERVIEW FOR ATRIAL FIBRILLATION STATUS POST CARDIOVERSION (HCC) WRITTEN ON 02/17/2020 5:49 AM BY MABEL MULLINS MD [facility]INA followed by DC cardioversion to NSR, 01/21/18, [facility]. Assessment & Plan (12/28/2024 7:46 PM CDT): Chronic/paroxysmal, diagnosed 6-7 years ago, recommend continuing amiodarone 100 mg daily, apixaban 5 mg twice daily, and metoprolol XL 12.5 mg daily. Assessment & Plan (12/28/2024 7:41 PM CDT): >>ASSESSMENT AND PLAN FOR ATRIAL FIBRILLATION STATUS POST CARDIOVERSION (HCC) WRITTEN ON 01/19/2018 9:29 AM BY MARTHA ERNST MD The patient is anticoagulated with Xarelto at home. The Xarelto will be on hold now, instead she is on heparin drip will continue days until Cardiology sees and until we have a that decision about further workup. Assessment & Plan (12/28/2024 7:41 PM CDT): >>ASSESSMENT AND PLAN FOR ATRIAL FIBRILLATION STATUS POST CARDIOVERSION (HCC) WRITTEN ON 01/23/2018 12:06 PM BY TIAN LOZANO DO s/p cardioversion by shock treatment, currently in SR. Assessment & Plan (12/28/2024 7:41 PM CDT): >>ASSESSMENT AND PLAN FOR ATRIAL FIBRILLATION STATUS POST CARDIOVERSION (HCC) WRITTEN ON 06/03/2018 11:20 AM BY TIAN LOZANO DO In NSR, managed by cardiology. Cont Xarelto 20mg qd Assessment & Plan (12/28/2024 7:41 PM CDT): >>ASSESSMENT AND PLAN FOR ATRIAL FIBRILLATION STATUS POST CARDIOVERSION (HCC) WRITTEN ON 01/14/2019 6:45 PM BY TIAN LOZANO DO Managed by cardiology, on amiodarone 200mg qd Assessment & Plan (12/28/2024 7:41 PM CDT): >>ASSESSMENT AND PLAN FOR ATRIAL FIBRILLATION STATUS POST CARDIOVERSION (HCC) WRITTEN ON 02/17/2020 11:07 AM BY MABEL MULLINS MD She has a history of atrial fibrillation that was converted to NSR about two years ago. She has done well since then on amiodarone. She continues on a blood thinner as well. She will keep her follow ups with Dr. Tena. Assessment & Plan (12/28/2024 7:41 PM CDT): >>ASSESSMENT AND PLAN FOR ATRIAL FIBRILLATION STATUS POST CARDIOVERSION (HCC) WRITTEN ON 09/02/2020 2:43 PM BY MABEL MULLINS MD Heart rhythm is regular at this time. She is on amiodarone and Xarelto. Continue same, and keep followups with Cardiology. Assessment & Plan (12/28/2024 7:41 PM CDT): >>ASSESSMENT AND PLAN FOR ATRIAL FIBRILLATION STATUS POST CARDIOVERSION (HCC) WRITTEN ON 01/07/2021 4:41 PM BY MABEL MULLINS MD She remains on amiodarone and Xarelto. She sees Dr. Tena for her heart issues. Assessment & Plan (12/28/2024 7:41 PM CDT): >>ASSESSMENT AND PLAN FOR ATRIAL FIBRILLATION STATUS POST CARDIOVERSION (HCC) WRITTEN ON 01/29/2021 12:18 PM BY MABEL MULLINS MD Heart rhythm is regular. She is on amiodarone. The dose was recently reduced by Cardiology so we changed her medication list to reflect which he is taking. Assessment & Plan (12/28/2024 7:41 PM CDT): >>ASSESSMENT AND PLAN FOR ATRIAL FIBRILLATION STATUS POST CARDIOVERSION (HCC) WRITTEN ON 08/02/2021 12:23 PM BY MABEL MULLINS MD Heart rhythm is regular. She is on amiodarone and a low-dose beta-bren, also takes Xarelto. Continue same and keep followups with Cardiology. Assessment & Plan (12/28/2024 7:41 PM CDT): >>ASSESSMENT AND PLAN FOR ATRIAL FIBRILLATION STATUS POST CARDIOVERSION (HCC) WRITTEN ON 02/21/2022 10:56 AM BY MABEL MULLINS MD Heart rhythm is currently regular on amiodarone. He also on Xarelto. She sees Dr. Tena. There is a tay recently for an abnormal stress test which showed only mild coronary disease. Assessment & Plan (12/28/2024 7:41 PM CDT): >>ASSESSMENT AND PLAN FOR ATRIAL FIBRILLATION STATUS POST CARDIOVERSION (HCC) WRITTEN ON 03/03/2023 12:59 PM BY MABEL MULLINS MD Heart rhythm is currently regular and rate is controlled. Continue amiodarone and Xarelto. Assessment & Plan (12/28/2024 7:41 PM CDT): >>ASSESSMENT AND PLAN FOR ATRIAL FIBRILLATION STATUS POST CARDIOVERSION (HCC) WRITTEN ON 09/04/2023 11:40 AM BY MABEL MULLINS MD Heart rate is regular today. She takes Xarelto and amiodarone as well as a beta-bren. She will keep her follow ups with Cardiology. Assessment & Plan (12/28/2024 7:41 PM CDT): >>ASSESSMENT AND PLAN FOR ATRIAL FIBRILLATION STATUS POST CARDIOVERSION (HCC) WRITTEN ON 11/08/2023 11:51 AM BY MABEL MULLINS MD Heart rhythm is regular. She is experiencing nighttime palpitations. She called Dr. Tena's office and a 30 day event monitor was ordered. Exam today reveals a normal rate and rhythm. In the past, she had some issues with bradycardia so the dose of beta-bren was reduced from 50 mg daily to 25 mg daily. Continue the current therapy including amiodarone. Assessment & Plan (12/28/2024 7:41 PM CDT): >>ASSESSMENT AND PLAN FOR ATRIAL FIBRILLATION STATUS POST CARDIOVERSION (HCC) WRITTEN ON 12/03/2023 12:10 PM BY MABEL MULLINS MD She still gets a feeling of palpitations. She wore another multiple cut off saw operator and turned it in this morning. There is no report so far. She has on a beta-bren, amiodarone and Xarelto. She also has feelings of orthostatic lightheadedness and her blood pressure is running on the low side. At home the other day it was about 108/48. We checked orthostatics which are normal. We will discuss possible blood pressure medication adjustment with cardiology. Assessment & Plan (12/28/2024 7:41 PM CDT): >>ASSESSMENT AND PLAN FOR ATRIAL FIBRILLATION STATUS POST CARDIOVERSION (HCC) WRITTEN ON 02/07/2024 3:09 PM BY MABEL MULLINS MD She is on Xarelto and had some bleeding in the right knee. There was also evidence of pseudogout on arthrocentesis. The knee still bothers her quite a bit. She was scheduled for an arthroscopy at [facility] which was delayed because of hyponatremia, see discussion elsewhere. She will continue medications for her atrial fibrillation pending correction of sodium to a level acceptable to the anesthesiologist. Assessment & Plan (12/28/2024 7:41 PM CDT): >>ASSESSMENT AND PLAN FOR ATRIAL FIBRILLATION STATUS POST CARDIOVERSION (HCC) WRITTEN ON 03/11/2024 11:50 AM BY MABEL MULLINS MD Chronic, controlled. Heart rhythm is regular. Things seem well controlled on current therapy including Xarelto. Assessment & Plan (07/02/2024 5:20 AM CDT): New problem, diagnosed about six weeks ago, did not respond to amiodarone so she was cardioverted recently. Currently heart rhythm is regular. She remains on amiodarone 200 mg daily, rivaroxaban 20 mg daily and metoprolol XL 25 mg daily. She denies chest pain or shortness of breath. We ordered TSH and free T4 to be done before her next visit due to being on amiodarone. She will keep her followups with cardiology. Relevant orders: TSH, free T4. Low bone density 07/24/2017 Overview (01/02/2021): Follow up DEXA on 01/01/2021: LEFT FEMORAL NECK: T-score -1.3 LEFT TOTAL HIP: T-score -0.7 LUMBAR SPINE: T-score 0.2 No significant change since 2019. Assessment & Plan (07/02/2024 5:14 AM CDT): Chronic, diagnosed about five years ago. She had a fragility fracture so we ordered annual zoledronic acid infusions. Her second dose is due, but she recently had a dental problem so it has to be delayed. She will call to reschedule it 4-6 weeks after all her dental work has been completed. We also ordered a follow-up vitamin-D level to see if her supplement has brought up a mildly low vitamin-D level. Assessment & Plan (09/04/2023 11:43 AM CREDIT COMPLIANCE OFFICER): She is on a vitamin-D supplement and she got her first dose of Reclast recently. Assessment & Plan (06/04/2023 12:31 PM CDT): She had her first dose of Reclast yesterday and tolerated it well. Assessment & Plan (05/15/2023 8:54 AM CDT): Her most recent bone density showed some progression, but not ronald osteoporosis. Now that she fractured her humerus, she should consider taking a medication to strength in her bones. Most likely we will put her on annual Reclast infusions if cleared by her dentist. She is not aware of any contraindications in this regard. Assessment & Plan (03/17/2023 1:57 PM CDT): We recommended a bone density follow up. Last DEXA in 2020 showed a femoral neck T-score of -1.3. Assessment & Plan (02/21/2022 10:59 AM CDT): She is on a vitamin-D supplement. She also takes an antacid now and then to help control heartburn, so probably gets a little extra calcium that way. ISSA (obstructive sleep apnea) 06/16/2017 Overview (01/28/2021): Sleep study on 02/23/2018: 1. Extremely poor sleep efficiency. 2. Severe obstructive sleep apnea with an apnea-hypopnea index of 64.5. 3. Given the patient's poor sleep efficiency, positive pressure therapy was unable to be titrated. It is recommended the patient return for followup sleep study with further titration to assess the optimal therapy requirements. Clinical correlation recommended. Assessment & Plan (02/13/2024 1:03 PM CDT): She had severe obstructive sleep apnea on a sleep study five or six years ago. She is on CPAP, and settings were recently adjusted to optimize treatment. Hopefully this will control her tendency towards pulmonary hypertension. Pulmonary hypertension may be contributing to the swelling in her legs, but as far as I know would not be a significant factor in her chronic hyponatremia. Assessment & Plan (09/10/2022 4:07 PM CREDIT COMPLIANCE OFFICER): We are referring her back to sleep specialist for reassessment of treatment. Assessment & Plan (08/24/2020 1:08 PM CREDIT COMPLIANCE OFFICER): She continues on CPAP. She had some epistaxis that was attributed to excessive drying of the nasal mucosa from her CPAP. Settings were reduced, and she does not sleep quite as well as before. Hopefully with additional weight loss, things will equilibrate. Assessment & Plan (02/17/2020 11:09 AM CDT): She uses CPAP every night. It was supposed to help her sleep better through the night, but she still has to get up every few hours to urinate, so she does not think it has helped that much. She will keep her follow ups with Dr. Hurst. Assessment & Plan (01/14/2019 6:43 PM CDT): Clinically improved. Will benefit from continuous use of CPAP. Encouraged continued compliance. Assessment & Plan (06/03/2018 11:21 AM CDT): Clinically improved. Will benefit from continuous use of CPAP. Encouraged continued compliance. Followed by Neurology. Assessment & Plan (01/23/2018 12:05 PM CDT): Bruce sleepiness scale score 14 on 01/23/2018 Referred to Neurology. Assessment & Plan (01/19/2018 9:22 AM CDT): Will request the family to bring her CPAP machine. Tear film insufficiency 04/11/2017 Overview (05/01/2021): [facility]. Pseudophakia 04/11/2017 Overview (05/01/2021): [facility]. Punctate keratitis 03/15/2016 Overview (05/01/2021): [facility]. History of laser assisted in situ keratomileusis 03/15/2016 Combined form of senile cataract 03/15/2016 Overview (05/01/2021): [facility]. Diverticulosis of colon 04/16/2015 Overview (08/25/2022): Chart entry from [facility], [place], details lacking. Anemia 04/16/2015 Overview (08/25/2022): Mild, intermittent normocytic anemia first noted at [facility], [place]. Assessment & Plan (03/14/2023 10:38 PM CDT): mildly decreased hemoglobin 11.8 from 01/2022 normal TSH from 07/2022, low iron and TS from 11/2021, no signs of GI blood loss Colonoscopy 07/2014 showed hemorrhoids and mild diverticulosis otherwise normal and patient is refusing another colonoscopy Will repeat cbc and iron studies Atopic rhinitis 03/05/2014 Overview (02/17/2020): Gets stopped up from CPAP machine, has a headache in morning. Assessment & Plan (09/04/2023 11:40 AM CREDIT COMPLIANCE OFFICER): Symptoms are controlled on Astelin and Flonase used as needed. Continue same. Assessment & Plan (03/10/2022 10:49 AM CDT): She is to have sinus pressure, primarily in the maxillary areas and paranasal regions. She is using Flonase. Two years ago she used Astelin but stopped using it for unknown reasons. We will add it back to her regimen to see if this helps control her symptoms which also include some discomfort in her left ear, chronic tinnitus mostly in the left ear, recurring vertigo, and other symptoms that have been difficult to control and could be due to her allergies. I also recommended a follow-up with Dr. Brenner and Dr. Smith for her ENT complaints. Assessment & Plan (02/26/2020 12:08 PM CDT): She has problems with nasal and sinus congestion, especially when she first gets up in the morning. She thinks it is due to her CPAP. She may also have some degree of perennial rhinitis/sinusitis. She takes Flonase but it is not helping that much. I recommend that she use it twice a day. We will have her start Astelin as well, with a dose twice a day before the Flonase. If not improving, consider other interventions, referral to ENT, etc. Mixed hyperlipidemia 07/06/2013 Overview (01/23/2017): Hyperlipidemia Assessment & Plan (12/28/2024 7:51 PM CDT): Chronic, present for 7-8 or more years, recommend continuine ezetimib 10 mg daily. She is intolerant of statins. Assessment & Plan (07/02/2024 5:15 AM CDT): Chronic, fair control on ezetimibe 10 mg daily. She is intolerant of statins. We ordered labs to be done before her next visit in six months. Assessment & Plan (09/04/2023 11:43 AM CREDIT COMPLIANCE OFFICER): She takes Zetia. She is intolerant of statins. Lipids are in a fairly good range. Lab Results Component Value Date CHOL 198 08/28/2023 CHOL 198 08/19/2022 CHOL 202 (H) 02/13/2022 Lab Results Component Value Date HDL 90 08/28/2023 HDL 95 08/19/2022 HDL 78 02/13/2022 Lab Results Component Value Date LDLCALC 94 08/28/2023 LDLCALC 90 08/19/2022 LDLCALC 104 02/13/2022 LDL 117 12/13/2016 LDL 125 06/07/2016 LDL 104 11/02/2015 Lab Results Component Value Date TRIG 70 08/28/2023 TRIG 64 08/19/2022 TRIG 99 02/13/2022 Lab Results Component Value Date ALT 14 08/28/2023 AST 20 08/28/2023 ALKPHOS 92 08/28/2023 BILITOT 0.4 08/28/2023 Assessment & Plan (03/03/2023 1:04 PM CDT): Cardiac catheterization was unremarkable, but she remains on Zetia to control lipids within limits. She is intolerant of statins. Assessment & Plan (08/26/2022 1:03 PM CREDIT COMPLIANCE OFFICER): She did not tolerate statins, but is tolerating Zetia with good control of lipids. Continue same. Lab Results Component Value Date CHOL 198 08/19/2022 CHOL 202 (H) 02/13/2022 CHOL 206 (H) 08/23/2019 Lab Results Component Value Date HDL 95 08/19/2022 HDL 78 02/13/2022 HDL 73 08/23/2019 Lab Results Component Value Date LDLCALC 90 08/19/2022 LDLCALC 104 02/13/2022 LDLCALC 113 08/23/2019 LDL 117 12/13/2016 LDL 125 06/07/2016 LDL 104 11/02/2015 Lab Results Component Value Date TRIG 64 08/19/2022 TRIG 99 02/13/2022 TRIG 99 08/23/2019 Lab Results Component Value Date ALT 14 08/19/2022 AST 20 08/19/2022 ALKPHOS 104 08/19/2022 BILITOT 0.6 08/19/2022 Assessment & Plan (08/02/2021 12:27 PM CDT): She is intolerant of statins. She is taking Zetia. Continue same, and check labs before her next visit in six months. Assessment & Plan (05/13/2021 11:00 AM CDT): She does not tolerate statins, and even Zetia causes her muscles to hurt. She knows it was due to Zetia because the pain went away when she stopped it for awhile. I encouraged her to discuss this with Dr. Tena at her upcoming visit with him in the next month or so. Assessment & Plan (01/31/2021 11:18 AM CDT): Her cholesterol medicine was stopped at her last cardiology appointment. We are looking into this for the patient. Assessment & Plan (01/07/2021 4:38 PM CDT): She saw the nurse practitioner in Cardiology recently who advised her to stop the Zetia for awhile to see if this helps her muscle cramps. So far she does not noticed any difference (although nocturnal leg cramps are improved with gabapentin). She still gets a little cramping in the right leg when she walks on her treadmill. She plans to resume the Zetia, so we left it on her list. Assessment & Plan (06/25/2019 6:13 PM CDT): Worsening, low chol diet recommended. Zetia 10 mg every day; intolerant to statins. Assessment & Plan (01/14/2019 6:41 PM CDT): Lipid abnormalities are improving with treatment. Nutritional counseling was provided. Lipids will be reassessed 4 months. Assessment & Plan (07/16/2018 4:52 PM CDT): On atrovastatin 10mg qd, discontinue at this time due to the myalgias. Assessment & Plan (06/03/2018 11:18 AM CDT): Lipid abnormalities are improving with treatment. Nutritional counseling was provided. and Pharmacotherapy as ordered. Lipitor 10 mg qd Lipids will be reassessed in 6 months. Assessment & Plan (11/04/2017 12:01 PM CREDIT COMPLIANCE OFFICER): Lipid abnormalities are unchanged. Nutritional counseling was provided. and Pharmacotherapy as ordered. Lipids will be reassessed in 6 months. Chronic fibroadenosis of breast 01/25/2010 Overview (08/25/2022): Note from [facility]: s/p removal (of fibroadenoma) and all mammogram performed by Dr. Clifford at breast cancer center. Atypical ductal hyperplasia of breast 08/08/2009 Class 1 obesity due to exces s calories with serious comorbidity and body mass index (BMI) of 30.0 to 30.9 in adult 04/19/2000 Overview (12/28/2024): BMI fluctuates. Assessment & Plan (12/28/2024 7:47 PM CDT): Chronic, recommend lifestyle modification with continued weight loss efforts. Assessment & Plan (11/08/2023 11:52 AM CREDIT COMPLIANCE OFFICER): She is concerned about involuntary weight loss. She usually weighs over 200 lb. Lately she does not feel like eating but denies nausea or abdominal pain. Bowel habits are normal. We will see her back in a month for a follow-up. Assessment & Plan (09/04/2023 11:44 AM CREDIT COMPLIANCE OFFICER): We encouraged attention to her diet, and hopefully a little bit of weight loss. Assessment & Plan (03/03/2023 1:04 PM CDT): We encouraged attention to her diet, and hopefully some weight loss. Assessment & Plan (08/26/2022 1:04 PM CREDIT COMPLIANCE OFFICER): We encouraged attention to her diet, and hopefully some weight loss. Assessment & Plan (02/21/2022 10:59 AM CDT): We encouraged attention to her diet and some weight loss. Assessment & Plan (08/02/2021 12:27 PM CDT): Her weight is basically unchanged. We encouraged attention to her diet, and hopefully a little bit of weight loss. Assessment & Plan (05/02/2021 1:24 PM CDT): Her weight is basically unchanged. I encouraged attention to her diet, and hopefully significant weight loss. Assessment & Plan (02/04/2021 12:00 PM CDT): Her weight is stable. Significant weight loss would probably benefit her blood pressure and other medical problems. Essential hypertension Assessment & Plan (12/29/2024 4:26 PM CDT): Chronic, present for many years, recommend continuing valsartan- hydrochlorothiazide 32-25 mg daily, hydralazine 100 mg 3 times daily, and other [...] higher. This decision was rendered after the patient completed the office visit, so we will communicate with her via telephone on this matter. Assessment & Plan (07/02/2024 5:11 AM CDT): Chronic, present for many years, current blood pressure is above systolic goal of less than 135 mm Hg. She thinks it is because she has been running around so much. She is on multiple medications to keep her blood pressure down. We will have her continue to monitor blood pressure at home and call us if it exceeds 135/85 on a consistent basis, in which case we may need to adjust her medications. BP: 148/64 Assessment & Plan (03/14/2024 2:49 PM CDT): Chronic, fair control. Blood pressure is improved although still not at goal of less than 135/85. We will see her back in three months. BP: 140/70 Assessment & Plan (02/14/2024 6:48 PM CDT): Systolic blood pressure is mildly elevated, above goal. We switched her from combination valsartan hydrochlorothiazide to plain valsartan because of hyponatremia. She is on several other medications to keep blood pressure down including hydralazine 100 mg 3 times daily, metoprolol XL 25 mg daily, and clonidine 0.1 mg twice daily as needed for systolic blood pressure over 160 mm Hg. Continue current therapy. Follow-up in one month as scheduled. Assessment & Plan (02/06/2024 1:59 PM CDT): Blood pressure tends to run a little on the high side at times including today. We will discuss management with cardiology. Assessment & Plan (09/04/2023 11:42 AM CREDIT COMPLIANCE OFFICER): Blood pressure is mildly elevated. Dr. Tena added clonidine for use as needed if blood pressure exceeds around 170 systolic. However, she does not check blood pressures regularly at home. We will discuss all of this with Cardiology. Assessment & Plan (03/03/2023 1:00 PM CDT): She is on several medications to keep her blood pressure under control including valsartan/HCTZ, hydralazine, and furosemide. Blood pressure is in a reasonable range. Follow-up in six months. She also sees Dr. Tena regularly with her next visit in June. Assessment & Plan (01/30/2023 9:51 AM CDT): Received refill for lasix and upon review of past labs, patient has been hyponatremic for almost a year. See HPI for details. Repeat BMP drawn today, awaiting results. No acute findings on exam. Will switch valsartan/HCTZ to plain Valsartan, keep lasix at 40mg daily and hydralyzine TID. Avoid salt and caffeine. Continue to monitor daily and record. Has repeat labs and follow in 1month. Assessment & Plan (01/02/2023 3:03 PM CDT): BP mildly elevated in office today at 154/84 (62). 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 Taking Diovan, hydralyzine, and lasix as ordered. No acute findings on exam. Monitor at home daily and record bring to next office visit. Low salt diet, stay hydrated. Assessment & Plan (08/26/2022 1:01 PM CREDIT COMPLIANCE OFFICER): Blood pressure is in a reasonable range on current therapy. She denies chest pain or pressure. Labs are relatively stable with some chronic hyponatremia and hypokalemia. We will put her on a little potassium supplement and repeat a BMP in a month. Lab Results Component Value Date GLUCOSE 105 08/19/2022 CALCIUM 8.9 08/19/2022 SODIUM 129 (L) 08/19/2022 POTASSIUM 3.2 (L) 08/19/2022 CO2 26 08/19/2022 CHLORIDE 89 (L) 08/19/2022 BUNSER 16 08/19/2022 CREATININE 0.79 08/19/2022 Assessment & Plan (02/21/2022 10:58 AM CDT): Pressure is well controlled on current therapy. Labs are stable. We will see her back in six months. Lab Results Component Value Date GLUCOSE 95 02/13/2022 CALCIUM 9.1 02/13/2022 SODIUM 133 (L) 02/13/2022 POTASSIUM 3.5 02/13/2022 CO2 22 02/13/2022 CHLORIDE 96 (L) 02/13/2022 BUNSER 9 02/13/2022 CREATININE 0.76 02/13/2022 Assessment & Plan (11/23/2021 3:16 PM CREDIT COMPLIANCE OFFICER): Systolic blood pressure is mildly elevated. We have had trouble controlling it in the past. She is currently on a fairly high dose of hydralazine as well as valsartan/HCTZ. About a year ago she was briefly on nifedipine XL, but it was discontinued I believe because of swelling in her legs. I will review the record. She sees Dr. Tena at the end of this month for a follow-up, and changes may be needed to her medications. Assessment & Plan (08/02/2021 12:24 PM CDT): Blood pressure in our office is normal, but it has been running a little high in Cardiology and even at home later in the day. Cardiology asked her to monitor blood pressure for two weeks and bring the readings by their office for adjustment in medication as needed. Currently she is on hydralazine, valsartan/HCTZ, furosemide, and metoprolol XL. She is no longer taking nifedipine. Recent labs are stable. Lab Results Component Value Date GLUCOSE 104 05/02/2021 CALCIUM 9.2 05/02/2021 SODIUM 140 05/02/2021 POTASSIUM 4.0 05/02/2021 CO2 25 05/02/2021 CHLORIDE 104 05/02/2021 BUNSER 11 05/02/2021 CREATININE 0.71 05/02/2021 Assessment & Plan (05/02/2021 1:27 PM CDT): Blood pressure is somewhat borderline, see discussion elsewhere. We switched from Entresto, which was too costly, to losartan. Assessment & Plan (02/22/2021 3:43 PM CDT): Patient blood pressure well controlled at today's visit. At this time will continue present regimen, but as noted above may transition to entresto and titrate up in hopes of discontinuing some other medications. Assessment & Plan (01/31/2021 11:16 AM CDT): Her blood pressure is in a much better range with the changes we made on Friday. Her swelling is down. She can wear her rings again. We will continue current therapy and have her follow-up in three months. Assessment & Plan (01/29/2021 12:17 PM CDT): Systolic blood pressure is moderately to severely elevated with an auscultatory gap between 190 and about 140. Diastolic blood pressure is okay. We will put her on nifedipine XL to bring her blood pressure down. We will give her a diuretic to help control some of the fluid accumulation in her legs. Follow-up in two days. Assessment & Plan (12/28/2020 9:38 AM CREDIT COMPLIANCE OFFICER): Blood pressure is in a reasonable range today. She gets similar or lower blood pressures at home with occasional systolics of 150 in the afternoon or evening. Continue current therapy. Assessment & Plan (09/28/2020 11:42 AM CREDIT COMPLIANCE OFFICER): Blood pressure is in a good range on current therapy. Continue same. Assessment & Plan (09/02/2020 2:45 PM CREDIT COMPLIANCE OFFICER): She is on quite a few medicines to keep her blood pressure in a normal range but seems to be tolerating them well. Continue same and follow-up routinely at least every six months. Lab Results Component Value Date GLUCOSE 133 08/15/2020 CALCIUM 9.0 08/15/2020 SODIUM 131 (L) 08/15/2020 POTASSIUM 3.9 08/15/2020 CO2 24 08/15/2020 CHLORIDE 94 (L) 08/15/2020 BUNSER 11 08/15/2020 CREATININE 0.71 08/15/2020 Assessment & Plan (08/18/2019 12:18 PM CDT): Controlled, encouraged patient to discuss all cardiac concerns and blood pressure with her gas distribution supervisor to decrease the possibility of confusion with medication dosing. Assessment & Plan (06/25/2019 6:12 PM CDT): Stable. Cont. Current meds. Amlodipine 5 mg every day, furosemide 20 mg every day, metoprolol xl 50 mg every day, diovan 320 mg qd Assessment & Plan (01/14/2019 6:41 PM CDT): Hypertension is improving with treatment. Continue current treatment regimen. Dietary sodium restriction. Weight loss. Regular aerobic exercise. Continue current medications. Ambulatory blood pressure monitoring. Blood pressure will be reassessed at the next regular appointment. Amlodipine 5 mg qd, furosemide 20 mg qd, metoprolol xl 50 mg qd, Diovan-HCT 320- 12.5 mg qd; Monitored by Cardiology Assessment & Plan (07/16/2018 4:51 PM CDT): Hypertension is stable. Diovan HCT 320-12.5 qd, metoprolol xl 50mg qd, furosemide 20mg qd, amlodipine 2.5 mg qd Assessment & Plan (06/03/2018 11:18 AM CDT): Hypertension is improving with treatment. Continue current treatment regimen. Dietary sodium restriction. Weight loss. Regular aerobic exercise. Continue current medications. amlodipine 2.5 mg qd, furosemide 20mg qd, metoprolol xl 50mg qd Blood pressure will be reassessed at the next regular appointment. Assessment & Plan (01/23/2018 12:04 PM CDT): Hypertension is worsening. Continue current treatment regimen. Dietary sodium restriction. Weight loss. Continue current medications. Ambulatory blood pressure monitoring. Blood pressure will be reassessed at the next regular appointment. Discuss with cardiology whether you can participate in an organized exercise program at this time. Assessment & Plan (01/19/2018 9:24 AM CDT): Her blood pressure is labile at home reported per patient. Will adjust her medications. Recommending to have a blood pressure log to present to gas distribution supervisor and or primary care physician for further recommendations. Resolved Problems Problem Noted Date Diagnosed Date Resolved Date Influenza B 03/05/2022 03/01/2023 Overview (03/01/2023): Saw TERA Connell, treated with Tamiflu. Assessment & Plan (03/05/2022 4:04 PM CDT): Patient presents with congestion, cough and feeling of being unwell. Testing today was positive for flu and covid. She is slightly outside the window for Tamiflu, but discussed with Dr. Mullins and given her diagnosis of covid as well we will treat with Tamiflu. She will continue supportive care and call with any further issues or concerns. COVID-19 03/05/2022 08/25/2022 Overview (08/25/2022): Simultaneous flu and Covid, treated with Tamiflu and monoclonal antibody with rapid recovery. Assessment & Plan (03/22/2022 2:25 PM CDT): Patient was recently diagnosed with covid 19 and influenza B. She was treated with tamiflu and monoclonal antibody infusion. She states felt improved 2 days after treatment began. She states overall feels back to baseline. She states has slight lingering cough, but had similar cough even prior to this illness. She will at this time continue present medications and call with any further issues or concerns. Assessment & Plan (03/05/2022 4:03 PM CDT): Patient presents with c/o of cough, sinus congestion and feeling unwell. She reports that symptoms began last Friday. She denies any recent known ill contacts. She has had her covid vaccine and booster. She however, appears to feel unwell today and covid testing was positive. She is at increased risk for poor outcomes with covid given her age and co-morbid conditions. She cannot tolerate paxlovid unfortunately as she is on amiodarone. We have referred her to the ER at [facility] for monoclonal antibody infusion. She will continue supportive care at this time, with rest, fluids, and sinus care. She will call or return sooner with any further issues or concerns. BPPV (benign paroxysmal posi tional vertigo), right 12/28/2021 03/01/2023 Overview (03/01/2023): Saw Dr. Brenner, vertigo reported as resolved. Assessment & Plan (04/08/2022 4:24 PM CDT): Vertigo resolved today Assessment & Plan (02/21/2022 10:57 AM CDT): She has had problems with vertigo. She had an audiogram and other testing that showed classic canalithiasis, see the audiology report. She says that Enrrique maneuvers in Dr. Brenner's office did not help. We sent in a refill of meclizine for use as needed. Assessment & Plan (12/28/2021 2:34 PM CREDIT COMPLIANCE OFFICER): Right Benign Positional Vertigo treated with Enrrique maneuver today Hearing and Balance testing [facility] Dr. Cortez Smith [phone] [address] [place] [address] Cetirizine 5 mg (1/2 Tablet) daily Consider Left sided ear tube placement versus imaging based on hearing and balance testing Vertigo 11/16/2021 08/26/2022 Overview (08/26/2022): Seen in [place] ER. Rx with meclizine. No recurrence as of July 2022. Saw hospital fellow for this and ringing. Assessment & Plan (12/02/2021 1:57 PM CREDIT COMPLIANCE OFFICER): She woke up early Friday morning with pretty bad vertigo. There was associated tinnitus. She has not noticed any hearing loss. The only preceding symptom was some mild positional vertigo at the hairdresser the previous Friday. She went to the [facility] ER and had labs and a head CT which were notable for moderate hyponatremia and mild hypokalemia. There was also very mild anemia which she has had intermittently in the past and could be normal for her. She says that CT of the head was normal but I do not have the report yet. This sounds like benign positional vertigo. Labyrinthitis her early Meniere's are considerations. Her symptoms have pretty much resolved with no recurrence of vertigo, but persistence of tinnitus. She denies any hearing loss. We will check some follow-up labs. If symptoms recur, we will refer to ENT and or physical therapy. Return as scheduled in January, or sooner if needed. Dysphagia 03/02/2020 08/22/2020 Overview (08/22/2020): Added automatically from request for surgery [id number], see EGD, improved with treatment of Steff. Assessment & Plan (05/09/2020 4:26 PM CDT): Improved after recent treatment of Steff esophagitis. Exertional dyspnea 09/19/2019 1 Overview (12/27/2020): Likely due to weight, deconditioning, diastolic dysfunction. Abnormal weight gain 08/18/2019 020 Overview (08/22/2020): Weight loss encouraged. Assessment & Plan (08/18/2019 12:19 PM CDT): Encouraged continued dietary modifications. Strongly recommended joining a managed weight loss program such as weight watchers. Exercise as tolerated. Fever 12/15/2018 01/14/2019 Myalgia 07/16/2018 01/14/2019 Assessment & Plan (07/16/2018 4:49 PM CDT): Rapid flu test ordered, test was negative. Labs ordered. Rx given. Will follow. Epistaxis 06/03/2018 08/22/2020 Overview (08/22/2020): Saw ENT, see note. Assessment & Plan (06/09/2020 2:22 PM CDT): Nasal saline spray (Simply saline, Little Remedies, Hatteras, Red House) 2 second sprays or 2 squeezes into each nostril while looking down over the sink, do not need to sniff in. Aquaphor apply pea-size amount into each nostril with a cotton tipped applicator, being carefully just to tuck it into each nostril, then massage soft portion of the outer nose to massage the ointment around inside the nose three times daily for one month then decrease to twice daily for one month, then once daily throughout the winter Tylenol ES for left ear pressure Increase humidity on CPAP Assessment & Plan (06/02/2020 10:47 AM CDT): Zpak with a meal daily NO NOSE BLOWING, WIPING, PICKING or RUBBING Take Antibiotic with a meal Packing placed today will dissolve on its own, it will not need to be removed If bleeding restarts, chin down over the sink and hold constant pressure to soft part of nose for 10 minutes Sneeze with mouth open Use humidifier in bedroom and home for moisture If bleeding profuse or persistent, go to closest ER or call ambulance Avoid taking aspirin or NSAIDs. Avoid bending or straining or heavy lifting for 2 weeks. Follow up in one week. Speak to Solar Installer [employer] on Friday regarding Xarelto Assessment & Plan (05/30/2020 4:18 PM CDT): Start Nasal saline spray (Simply saline, Little Remedies, Hatteras, Red House) 2 second sprays or 2 squeezes into each nostril while looking down over the sink, do not need to sniff in 3-4 times per day in 2 days for one month, if nosebleeds settle out then decrease nasal saline to 2-3 times daily, wean down to at least once daily If no further nosebleeds for 3-5 days, restart Xarelto. Call if nose bleeds do not improve Assessment & Plan (05/29/2020 12:37 PM CDT): Patient presents with c/o recurrent nosebleeds. This has been ongoing almost daily since last Friday. Bleeding has been difficult to control, which is most likely r/t her AC with xarelto. She has a known history of a pyogenic granuloma which was removed per ENT in the past. At this time will hold xarelto and attempt to arrange f/u with ENT this week. We discussed the risk benefits/of holding AC and patient understands and agrees with holding this week. She will go to ER with any uncontrolled bleeding. Assessment & Plan (06/17/2018 12:23 PM CDT): Examination revealed a pyogenic granuloma within the left nasal cavity. This was excised today and the area was cauterized. This should make patient less susceptible to recurring nosebleeds wall on blood thinners. Nasal hygiene care instructions were given. Patient can follow back up as needed. Assessment & Plan (06/03/2018 11:21 AM CDT): Currently Asx. Referred to ENT. Class 2 severe obesity due t o excess calories with serious comorbidity and body mass index (BMI) of 38.0 to 38.9 in adult 03/12/2018 0 Overview (08/22/2020): Weight fluctuates, working on reducing. Assessment & Plan (08/18/2019 12:19 PM CDT): Worsening. Encouraged patient to decrease weight, increase daily exercise, and modify diet. Assessment & Plan (06/25/2019 6:11 PM CDT): Worsening. Encouraged patient to decrease weight, increase daily exercise(non- weight bearing exercises), and modify diet. Assessment & Plan (01/14/2019 6:43 PM CDT): Obesity is worsening. Discussed the patient's BMI. The BMI is above average; BMI management plan is completed. General weight loss/lifestyle modification strategies discussed (elicit support from others; identify saboteurs; non-food rewards, etc). Assessment & Plan (06/03/2018 11:20 AM CDT): Obesity is unchanged. Discussed the patient's BMI. The BMI is above average; BMI management plan is completed. General weight loss/lifestyle modification strategies discussed (elicit support from others; identify saboteurs; non-food rewards, etc). Other chest pain 01/19/2018 02/17/2020 Overview (02/17/2020): Negative heart cath on 01/20/18 Assessment & Plan (01/14/2019 6:45 PM CDT): Coronary artery disease is improving with treatment. Continue current treatment regimen. Dietary sodium restriction. Weight loss. Regular aerobic exercise. Continue current medications. 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 metoprolol xl 50 mg qd Assessment & Plan (07/16/2018 4:52 PM CDT): No chest pain today. Stable. 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 Patient has a very minimum ST depression in the lateral leads which is the same in comparison to prior EKGs. Her symptoms are minimum now. She is ruled out for of acute AR with serial troponins and EKGs. Cardiology consult pending. I am ordering echocardiogram for possible new onset systolic congestive heart failure. Patient is allergic to aspirin. Her lipid panel is in good shape, will continue her home dose statin. I suspect her chest heaviness is related to congestive heart failure. Chronic diastolic congestive heart failure 01/19/2018 08/22/2020 Overview (08/22/2020): Followed by cardiology, echocardiograms. Assessment & Plan (01/14/2019 6:46 PM CDT): At baseline, managed by cardiology. Metoprolol xl 50 mg qd, Diovan-HCT 320-12.5 mg qd Assessment & Plan (07/16/2018 4:53 PM CDT): Congestive heart failure stable. Cont current meds. Assessment & Plan (01/23/2018 12:02 PM CDT): Congestive heart failure due to hypertension and ISSA ???. Heart failure is newly identified. Dietary sodium restriction. Encouraged daily monitoring of the patient's weight. Continue current medications. Refer to Cardiology. Heart failure will be reassessed managed by cardiology. Assessment & Plan (01/19/2018 9:22 AM CDT): The patient has risk factors to develop the systolic or diastolic congestive heart failure. Last echocardiogram on 11/08/2017 shows normal systolic ejection fraction of 65%, but enlargement of right atrium, left atrium and moderate degree mitral regurgitation, no interpretation of diastolic dysfunction of the heart but that looks like with all the changes in the heart she probably had diastolic dysfunction. Will repeat the EKG he mainly to rule out systolic dysfunction. I am discontinue IV fluids, because she is fluid overloaded, has 1+ pitting edema bilateral lower extremities and orthopnea symptoms. And giving her 1 dose of Lasix 40 mg IV now. Bronchitis 12/02/2017 06/03/2018 Assessment & Plan (12/02/2017 9:42 AM CREDIT COMPLIANCE OFFICER): Depo-Medrol 80mg IM x 1 now. Nebulized TX DuoNeb given. Rxs given, increase fluids, rest. Pseudophakia of both eyes 04/11/2017 Non-toxic multinodular goiter 03/05/2014 07/03/2018 Overview (01/24/2017): NONTOX MULTINODUL GOITER Chronic sinusitis 11/10/2012 11/04/2017 Overview (01/23/2017): Chronic sinusitis Thyroid nodule 02/17/2012 11/04/2017 Overview (01/23/2017): Thyroid nodule Postmenopausal 04/19/2010 02/17/2020 Non morbid obesity 04/19/2010 1 Assessment & Plan (12/28/2020 9:35 AM CREDIT COMPLIANCE OFFICER): Her weight is unchanged. She is trying to lose weight. I encouraged her efforts. I encouraged smaller meal sizes to deal with abdominal bloating. Assessment & Plan (10/12/2020 4:29 PM CREDIT COMPLIANCE OFFICER): She saw a dietitian. She did great on her diet for awhile but then plateaued. She is not counting calories. I recommend she target around 1500 calories a day to resume weight loss, but this will need to be lowered further to sustain weight loss and get to her target. The dietitian suggested a pharmacologic weight loss remedy as well. We will start with Saxenda, risks of medication discussed. Follow-up here in three months. Assessment & Plan (08/24/2020 1:08 PM CREDIT COMPLIANCE OFFICER): She has joined a [facility] sponsored diet program and has lost a little bit of weight. She plans to continue her efforts which consist of portion control and staying active. Chest pain 01/23/2018 Encounters Date Type Department Care Team Description 12/29/2024 11:30 AM CDT Office Visit [facility] [address] [place] [address] Mabel Mullins MD Medicare annual wellness visit, subsequent (Primary Dx); Essential hypertension; Mixed hyperlipidemia; Paroxysmal atrial fibrillation (HCC); Hypertensive heart disease with chronic diastolic congestive heart failure (HCC); Class 1 obesity due to excess calories with serious comorbidity and body mass index (BMI) of 30.0 to 30.9 in adult; Excoriation of right ear canal, initial encounter; Hyponatremia; Breast cancer screening by mammogram 12/29/2024 Telephone [facility] [address] [place] [address] Mabel Mullins MD 12/24/2024 Orders Only [facility] [address] [place] [id number] Pati Yang NP Hypertensive heart disease with chronic diastolic congestive heart failure (HCC) (Primary Dx); Atrial fibrillation status post cardioversion (HCC) 12/23/2024 Telephone [facility] [address] [place] [address] Ezequiel Orta MA 12/22/2024 Results Follow-Up [facility] [address] [place] [address] Mabel Mullins MD 12/21/2024 12:00 PM CREDIT COMPLIANCE OFFICER Lab [facility] [address] [place] [address] Essential hypertension 11/08/2024 ACO Quality [facility] Accountable Care Organization [address] [place] [address] Janette Jaquez 10/11/2024 Telephone [facility] Care [facility] [address] [place] [address] Franchesca Redd Successful Phone Call ([facility]) 10/05/2024 Orders Only [facility] [address] [place] [address] Mabel Mullins MD from Last 3 Months Immunizations Immunization Administration Dates Next Due Influenza, Quadrivalent, Hig h Dose, Preservative Free, Intrr 09/04/2023,08/26/2022,08/02/2021,08/25 Influenza, Quadrivalent, Spl it, Preservative Free, Intramuscular 08/30/2015,09/19/2010,07/07/2009 Influenza, Split 07/22/2012,10/20/2010 Influenza, Trivalent, High D ose, Split, Preservative Free, Intramuscular 06/30/2024,07/23/2019,09/21/2018,07/22,09/05/2016 Influenza, Trivalent, IM (MDV) 07/20/2015 Influenza, Trivalent, Recomb inant, Egg Free, Preservative Free, Antibiotic Free, IM (FLUBLOK) 10/04/2014 Influenza, Unspecified 07/19/2018 Moderna SARS-CoV-2 Monovalen t Vaccination (12+ YRS) 11/29/2020,11/01/2020 Pneumococcal Conjugate PCV 13 09/17/2017 Pneumococcal Polysaccharide PPV23 12/03/2018 Td, adsorbed 05/11/2013 Tdap 10/20/2002 ZOSTER LIVE 07/02/2011 ZOSTER Recombinant 02/21/2021,08/25/2020 Surgical History Surgery Date Site/Laterality Comments CHOLECYSTECTOMY 10/20/1979 - 10/19/1980 Cholecystectomy OTHER SURGICAL HISTORY 10/20/2013 - 10/19/2014 er-rt humerus fracture TOTAL THYROIDECTOMY 10/20/2014 - 10/19/2015 total Thyroidectomy TOTAL ABDOMINAL HYSTERECTOMY W/ BILATERAL SALPINGOOPHORECTOMY 10/20/1995 - 10/19/1996 Dr. Contreras BREAST BIOPSY Right Benign breast lump (fibroadenoma) removed, dates and details lacking. MAMMOGRAPHY 10/08/2019 Bilateral Negative, [facility]. DEXA SCAN 02/18/2019 Left hip osteopenia, normal spine. CARDIOVERSION 01/21/2018 For atrial fibrillation, [facility]. COLONOSCOPY 08/03/2014 Normal except hemorrhoids and diverticulosis, Dr. Brooks, [facility]. BLADDER SURGERY Overactive bladder: bladder repair, details lacking. FINE NEEDLE ASPIRATION Thyroid nodules: biopsy normal, details lacking ESOPHAGOGASTRODUODENOSCOPY 04/04/2020 Mild esophageal candidiasis, diffuse gastropathy with some retained food, small HH, Dr. Melendez, [facility]. MAMMOGRAPHY 10/09/2020 Bilateral Negative, [facility]. CARDIAC CATHETERIZATION 01/20/2018 Left No high grade lesions warranting intervention, Dr. Tena, [facility]. MAMMOGRAPHY 10/10/2021 Bilateral Negative, [facility]. DEXA SCAN 01/01/2021 Fem Neck T Score -1.3. [facility]. CARDIAC CATHETERIZATION 01/31/2022 Left No significant CAD or renal artery disease, Dr. Tena, [facility]. Done for abnormal stress test. MAMMOGRAPHY 12/12/2022 Bilateral Negative, [facility]. COLONOSCOPY 04/03/2023 Fair prep, no specimens collected. Repeat colonoscopy in 3 years for screening purposes due to fair prep. UPPER GASTROINTESTINAL ENDOSCOPY 04/03/2023 Erythematous stomach, mild reactive gastropathy. Esophageal plaques were found, suspicious for candidiasis but negative PAS stain. Gastric polyp resected. Z-line irregular, with focal intestinal metaplasia, no dysplasia or malignancy. Dr. Kumar, [facility]. HM MAMMOGRAPHY 01/12/2024 Bilateral Negative, [facility]. CARDIOVERSION 06/03/2024 N/A Dr. Tena, [facility]. KNEE ARTHROSCOPY 05/10/[address] Vo, [facility]. Medical History Medical History Date Comments Hypertension Hyperlipidemia Hypothyroidism Thyroid nodule status post surgery Overactive bladder Gastroesophageal reflux disease Atrial fibrillation (HCC) Postmenopausal 04/19/2010 Other chest pain 01/19/2018 Negative heart cath on 01/20/18 Chicken pox 1955 Abnormal weight gain 08/18/2019 Weight loss encouraged. Class 2 severe obesity due t o excess calories with serious comorbidity and body mass index (BMI) of 38.0 to 38.9 in adult ([facility]) 03/12/2018 Weight fluctuates, working o n reducing. Chronic diastolic congestive heart failure (HCC) 01/19/2018 Followed by cardiology, echocardiograms. Epistaxis 06/03/2018 Saw ENT, see not e. Dysphagia 03/02/2020 Added automatica lly from request for surgery [id number], see EGD, improved with treatment of Steff. Exertional dyspnea 09/19/2019 Likely due to weight, deconditioning, diastolic dysfunction. Non morbid obesity 04/19/2010 Obesity (BMI 35.0-39.9 witho ut comorbidity) 04/19/2000 Covid-19 03/05/2022 Simultaneous flu and Covid, treated with Tamiflu and monoclonal antibody with rapid recovery. Vertigo 11/16/2021 Seen in [facility] ER. Rx with meclizine. No recurrence as of July 2022. Saw hospital fellow for this and ringing. Influenza B 03/05/2022 Saw [facility], treated with Tamiflu. BPPV (benign paroxysmal posi tional vertigo), right 12/28/[address] Brenner, vertigo re ported as resolved. Pseudophakia of both eyes 04/11/2017 Obesity (BMI 30-39.9) 04/19/2000 Family History Medical History Relation Name Comments Multiple sclerosis Brother 2 Multiple sclerosis; Hypertension Brother 3 Hypertension; Coronary artery disease Brother 4 Jomar Sten ts Multiple sclerosis Brother 4 Jomar Multiple sclerosis; Heart attack Brother 5 Francisco Myocardial infa rction; Cause of : Myocardial infarction Coronary artery disease Father Parth nary artery disease; /Coronary artery disease; Cause of : Coronary artery disease Hypertension Father Hypertension; Coronary artery disease Mother COD Diabetes Mother Diabetes mellit us; Diabetes type II Mother Diabetes -T ype 2; Hypertension Mother Hypertension; Thyroid disease Mother Thyroid diso rder; Other Other 1 No family histo ry of Cancer; Diabetes Other 2 Family history of Diabetes mellitus; Heart disease Other 3 Family history of Heart disease; Hypertension Other 4 Family history of Hypertension; Multiple sclerosis Other 5 Family hi story of Multiple sclerosis; Other Sister 1 Brandy Alive and well; Thyroid disease Sister 2 Thyroid diso rder; Relation Name Status Comments Brother 1 (Age 61) Brother 2 Brother 3 Brother 4 Jomar Brother 5 Francisco Father (Age 59) Mother (Age 80) Other 1 Other 2 Other 3 Other 4 Other 5 Sister 1 Brandy Alive Sister 2 Social History Tobacco Use Types Packs/Day Years [...] on file Legal Sex Female 12:10 AM CREDIT COMPLIANCE OFFICER Gender Identity Female 05/03/2020 10:38 PM CDT Sexual Orientation Straight 05/03/2020 10 :38 PM CDT 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 Not on file Not on file Obstetrics History Para Term AB IAB SAB Ectopic Multiple Livin g Live Births 2 2 2 Date Outcome GA Total Labor Labor/2nd/3rd Weight Sex Type Anes PTL Evelyn A1 A5 Name Clin Term Term Last Filed Vital Signs Vital Sign Reading [...] Mass Index 29.33 12/29/2024 11:32 AM CDT Plan of Treatment Health Maintenance Due Date Last Done Comments DTaP/Tdap/Td Vaccine (3 - Td or Tdap) 05/11/2023 05/11/2013, 10/20/2002 Covid-19 Vaccine (4 2023-2 5 season) 2024 07/03/2021, 11/29/2020, 11/01/2020 Breast Cancer Screening-Mammogram 01/11/2025 01/12/2024, 12/12/2022, 10/10/2021, Additional history exists Osteoporosis Screening-Bone Density Scan 03/05/2025 03/05/2023, 01/01/2021, 02/18/2019, Additional history exists Depression Screening 12/29/2025 12/29/2024, 09/04/2023, 08/26/2022, Additional history exists Fall Risk Assessment 12/29/2025 12/29/2024, 09/04/2023, 04/03/2023, Additional history exists Well Visit 65+ 12/29/2025 12/29/2024, 08/20, 08/26/2022, Additional history exists Colon Cancer Screening-Colonoscopy 04/03/2026 04/03/2023, 08/03/2014 Hepatitis C Screening Completed 02/13/2017 Pneumococcal vaccine 65+ Completed 12/03/2018, 08/21 Zoster Vaccine Completed 02/21/2021, 11/0 03/2020, 07/02/2011 Colon Cancer Screening-CT Colonography Discontinued 04/03/2023, 08/03/2014 Colon Cancer Screening-DNA Stool Discontinued 04/03/20 23, 08/03/2014 Colon Cancer Screening-FIT Discontinued 04/03/2023, Colon Cancer Screening-Sigmoidoscopy Discontinued 04/03/2023, 08/03/2014 Hepatitis B Screening Completed 02/09/2024 Influenza Vaccine Completed 06/30/2024, , 08/26/2022, Additional history exists Medical Devices Implanted Type Area Shredded Filler Cutter Operator Device Identifier Shelf Expiration Date Model / Serial / Lot Angio-Seal Evolution 6fr Vascular Closure [id number] - [id number] Implanted:Qty: 1 on 01/31/2022 by Jh Tena MD at [facility] Other - see comments [employer] 10/19/2022 [id number] / / [id number] Procedures Procedure Name Priority Date/Time Associated Diagnosis Comments EGFR Routine 12/21/2024 11:58 AM CREDIT COMPLIANCE OFFICER Essential hypertension THYROID FUNCTION CASCADE Routine 12/21/2024 11:58 AM CREDIT COMPLIANCE OFFICER Essential hypertension BASIC METABOLIC PANEL Routine 12/21/2024 11:58 AM CREDIT COMPLIANCE OFFICER Essential hypertension SCAN - RADIOLOGY/IMAGING 10/05/2024 1:46 PM CREDIT COMPLIANCE OFFICER SCREENING MAMMOGRAM BILATERAL W VIRGILIO Schedule Routine, Read Routine (OP Routine) 01/12/2024 11:09 AM CDT Screening mammogram, encounter for COLONOSCOPY 04/03/2023 8:38 AM CDT DEXA AXIAL SKELETON BONE DENSITY 1 OR MORE SITES Schedule Routine, Read Routine (OP Routine) 03/05/2023 12:55 PM CDT Menopause Low bone density HEPATITIS C SCREENING Routine 02/13/2017 from Last 3 Months or Most Recently Relevant to Health Maintenance Results * eGFR (12/21/2024 11:58 AM CREDIT COMPLIANCE OFFICER) eGFR 77 >=60 mL/min/1. 73 m2 Comment: Interpretive Data Reference Interval Normal >/= 90 mL/min/1.73m2 Mildly decreased* 60 - 89 mL/min/1.73m2 Mildly to moderately decreased 45 - 59 mL/min/1.73m2 Moderately to severely decreased 30 - 44 mL/min/1.73m2 Severely decreased 15 - 29 mL/min/1.73m2 Kidney Failure < 15 mL/min/1.73m2 *Relative to young adult level Estimated glomerular filtration rate is determined by the 2020 CKD-EPI equation recommended by the National [employer] (A Unifying Approach to GFR Estimation: Recommendations of the NKF-ASK Task Force on Reassessing the Inclusion of Race in Diagnosing Kidney Disease, JASN 2020). The CKD-EPI equation should not be used for patients with unstable renal function and has not been validated in children and those over 70. Current interpretive data was last reviewed 2021. Testing performed by: [address] [address] Blood 12/21/2024 11:5 8 AM CREDIT COMPLIANCE OFFICER 12/21/2024 6:26 PM CREDIT COMPLIANCE OFFICER us Mabel Mullins MD LAB BLOOD ORDERABLES Final Re sult [facility] [address] Department [place] [address] * Thyroid Function [place] (12/21/2024 11:58 AM CREDIT COMPLIANCE OFFICER) TSH 0.32 0.30 - 4.20 mcIUnit/mL Comment:Testing performed by : [address] [address] Blood 12/21/2024 11:5 8 AM CREDIT COMPLIANCE OFFICER 12/21/2024 6:10 PM CREDIT COMPLIANCE OFFICER us Mabel Mullins MD LAB BLOOD ORDERABLES Final Re sult [address] Department [place] [address] * (ABNORMAL) Basic metabolic panel (12/21/2024 11:58 AM CREDIT COMPLIANCE OFFICER) Sodium 128(L) 135 - 145 mmol/L Comment:Testing performed by : [address] [address] Potassium, pl 3.6 3.3 - 4.9 mmol/L [facility] Comment:Testing performed by : [address] [address] Chloride 89(L) 97 - 110 mmol/L [facility] Comment:Testing performed by : [address] [address] CO2 26 22 - 32 mmol/L [facility] Comment:Testing performed by : [address] [address] Anion gap 13 2 - 15 mmol/L [facility] Comment:Testing performed by : [address] [address] BUN 13 6 - 25 mg/dL [facility] Comment:Testing performed by : [address] [address] Creatinine 0.81 0.60 - 1.10 mg/dL [facility] Comment:Testing performed by : [address] [address] Glucose 112 70 - 199 mg/dL [facility] Comment: Interpretive Data Fasting glucose >/= 126 mg/dl is diagnostic for diabetes. Fasting is defined as no caloric intake for at least 8 hours. Fasting glucose between 100 mg/dl to 125 mg/dl is diagnostic of prediabetes. In a patient with classic symptoms of hyperglycemia or hyperglycemic crisis, a random glucose >/= 200 mg/dl is diagnostic for diabetes. In the absence of unequivocal hyperglycemia, results should be confirmed by repeat testing. The classification and Diagnosis of Diabetes Diabetes Care 2021; 46: S19-S40. Current interpretive data was last revised 2022. Testing performed by: [address] [address] Calcium 8.9 8.5 - 10.3 mg/dL [facility] Comment:Testing performed by : [facility], [id number] [place] [address], [place]., [address] Blood 12/21/2024 11:5 8 AM CREDIT COMPLIANCE OFFICER 12/21/2024 6:10 PM CREDIT COMPLIANCE OFFICER us Mabel Mullins MD LAB BLOOD ORDERABLES Final Re sult [facility] [address] [address] Department [place] [address] * SCAN - RADIOLOGY/IMAGING (10/05/2024 1:46 PM CREDIT COMPLIANCE OFFICER) Anatomical Region Laterality Modality Other us Mabel Mullins MD Final Result * Screening Mammogram Bilateral W [place] (01/12/2024 11:09 AM CDT) Anatomical Region Laterality Modality Breast Bilateral Mammography Narrative 01/12/2024 12:51 PM CDT BILATERAL DIGITAL MAMMOGRAPHY The present examination has been compared to prior imaging studies dated 12 December 2022, 10 November 2020. Mammography Findings CAD (computer-aided detection) software was utilized. There are scattered fibroglandular densities that could obscure a lesion on mammography. No masses, significant calcifications or other abnormalities are seen. Impression There is no mammographic evidence of malignancy. Screening mammogram in 1 year is recommended. BI-RADS Category 1: Negative PATIENT LETTER SENT us Mabel Mullins MD IMG MAMMO PROCEDURES Final Re sult * COLONOSCOPY (04/03/2023 8:38 AM CDT) Anatomical Region Laterality Modality Other Narrative Procedure Note Obdulio Kumar MD - 04/03/2023 8:38 AM CDT [facility] Patient Name: Brigida Ordaz Procedure Date: 04/03/2023 8:38 AM Date of : 1950 Admit Type: Outpatient Age: 72 Gender: Female Attending MD: Obdulio Kumar M.D. Room: [facility] ENDOSCOPY ROOM 2 Note Status: Finalized Patient Profile: This is a 72 year old female hx of HLD, HTN, AFib status post cardioversion on Xarelto, CAD, thyroid nodules, hypothyroidism, chronic iron deficiency anemia and chronic hyponatremia here forcolonoscopy for iron-deficiency anemia. Last [id number]/2014 showed hemorrhoids and mild diverticulosis. Nofamily history of colon cancer. Procedure: Colonoscopy Indications: Last colonoscopy: July 2014, Iron deficiencyanemia Referring MD: Mabel Mullins M.D. Providers: Obdulio Kumar M.D. Impression: - Preparation of the colon was fair. - Perianal skin tags found on perianal exam. - External and internal hemorrhoids. - No specimens collected. - No endoscopic explanation for patient's iron deficiency. Recommendation: - Patient has a contact number available for emergencies. The signs and symptoms of potential delayed complications were discussed with thepatient. Return to normal activities tomorrow. Written discharge instructions were provided to thepatient. - Discharge patient to home (with escort). - Resume previous diet. - Continue present medications. - Repeat colonoscopy in 3 years for screeningpurposes given fair prep - Return to GI clinic as previously scheduled. Medicines: Monitored Anesthesia Care Complications: No immediate complications. Estimated Blood Loss: Estimated blood loss: none. Procedure: Pre-Anesthesia Assessment: - Prior to the procedure, a History and Physicalwas performed, and patient medications and allergieswere reviewed. The patient is competent. The risks and benefits of the procedure and the sedation optionsand risks were discussed with the patient. Allquestions were answered and informed consent was obtained. Patient identification and proposed procedure were verified by the physician, the geriatric physical therapist and the electronic calibration technician in the endoscopy suite. Mental Status Examination: normal. Prophylactic Antibiotics: The patient does not require prophylactic antibiotics. Prior Anticoagulants: The patient has taken Xarelto (rivaroxaban), last dose was 5 days prior to procedure. ASA Grade Assessment: III - A patientwith severe systemic disease. After reviewing the risksand benefits, the patient was deemed in satisfactory condition to undergo the procedure. The anesthesia plan was to use monitored anesthesia care (MAC). Immediately prior to administration of medications, the patient was re-assessed for adequacy to receive sedatives. The heart rate, respiratory rate, oxygen saturations, blood pressure, adequacy of pulmonary ventilation, and response to care were monitored throughout the procedure. The physical status ofthe patient was re-assessed after the procedure. The benefits, risks and alternatives of theprocedure and sedation were discussed and informed consentwas obtained. All questions were answered. Please referto the signed informed consent document in the medical record. The bowel preparation used was Miralax via split dose instruction. The bowel preparation usedwas bisacodyl tablets via split dose instruction. The scope was passed under direct vision. TheColonoscope [id number] was introduced through the anus and advanced to the the cecum, identified by appendiceal orifice and ileocecal valve. The colonoscopy was somewhat difficult. The patient tolerated the procedure well. The quality of thebowel preparation was fair. Bowel prep was administered using a split dose. Findings: Skin tags were found on perianal exam. Prep was fair, extensive washing was required to clean the mucosa for adequate visualization. External and internal hemorrhoids were found during retroflexion. Obdulio Kumar M.D. 04/03/2023 11:46:42 AM Number of Addenda: 0 Note Initiated On: 04/03/2023 8:38 AM Procedure Code(s): --- Professional --- 86128, Colonoscopy, flexible; diagnostic, including collection of specimen(s) by brushing or washing, when performed (separateprocedure) --- Technical --- 65292, Colonoscopy, flexible; diagnostic, including collection of specimen(s) by brushing or washing, when performed (separateprocedure) Diagnosis Code(s): --- Professional --- K64.8, Other hemorrhoids K64.4, Residual hemorrhoidal skin tags D50.9, Iron deficiency anemia, unspecified --- Technical --- K64.8, Other hemorrhoids K64.4, Residual hemorrhoidal skin tags D50.9, Iron deficiency anemia, unspecified CPT copyright 2020 [employer]. All rights reserved. The codes documented in this report are preliminary and upon surgical coder reviewmay be revised to meet current compliance requirements. Recognized by the [employer] for promoting quality in endoscopy Obdulio Kumar MD ENDOSCOPY PROCEDURES Final Resul t * Dexa Axial Skeleton Bone Density 1 or 2 Site (03/05/2023 12:55 PM CDT) Anatomical Region Laterality Modality Body N/A Other 03/05/2023 9:25 PM CDT Narrative 03/05/2023 9:25 PM CDT EXAM DESCRIPTION: DEXA AXIAL SKELETON BONE DENSITY 1 OR MORE SITES REASON FOR STUDY: 72 y/o year old F with given history of screening. Postmenopausal Shredded Filler Cutter Operator/Model: Identropy (S/N [id number]) CLINICAL INFORMATION: Current height: 66 inches Maximum height: 66.5 inches Weight: 213 pounds Risk factors: Postmenopausal COMPARISON: 01/01/2021, 02/18/2019 FINDINGS: AP LUMBAR SPINE L1-L4: Total BMD is 1.010 g/cm2 T-score is -0.3 Dissimilar scan types or analysis methods precludes assessment for calculating a significant change. LEFT HIP: Total BMD is 0.805 g/cm2 T-score is -1.1 Dissimilar scan types or analysis methods precludes assessment for calculating a significant change. Femoral neck BMD is 0.643 g/cm2 T-score is -1.9 FRAX: 10 year risk for a major osteoporotic fracture is 11 %, 10 year risk for a hip fracture is 1.9 % IMPRESSION: Low Bone Mass. REFERENCE: Bone mineral density: Normal (T-score above or = -1.0) Low bone mass (T-score between -1.0 and -2.5) replaces the previously used term osteopenia Osteoporosis (T-score = or below -2.5) Medical evaluation for secondary causes of low bone mineral density may be appropriate. FRAX is a World Health Organization validated fracture risk assessment tool that calculates a person's 10 year probability of a major osteoporosis related fracture and hip fracture. According to the National Osteoporosis Foundation guidelines, postmenopausal women and men age 50 or older with low bone mass and a 10 year probability of a major osteoporosis related fracture = or greater than 20% or a 10 year probability of a hip fracture = or greater than 3% should be considered for treatment. For further information, including treatment recommendations, please refer to the 2019 ISCD Official Positions (http://www.iscd.org) and the NOF's Clinician's Guide to Prevention and Treatment of Osteoporosis (http://www.nof.org/professionals/clinical-guidelines) THIS IS AN ELECTRONICALLY VERIFIED FINAL REPORT 03/05/2023 9:25 PM - Electronically signed by Lew Tiwari M.D. MF: [facility]LEY Report ID: [id number] Reading Location: [place] [address] Procedure Note Lew Tiwari MD - 03/05/2023 EXAM DESCRIPTION: DEXA AXIAL SKELETON BONE DENSITY 1 OR MORE SITES REASON FOR STUDY: 72 y/o year old F with given history of screening. Postmenopausal Shredded Filler Cutter Operator/Model: Identropy (S/N [id number]) CLINICAL INFORMATION: Current height: 66 inches Maximum height: 66.5 inches Weight: 213 pounds Risk factors: Postmenopausal COMPARISON: 01/01/2021, 02/18/2019 FINDINGS: AP LUMBAR SPINE L1-L4: Total BMD is 1.010 g/cm2 T-score is -0.3 Dissimilar scan types or analysis methods precludes assessment for calculating a significant change. LEFT HIP: Total BMD is 0.805 g/cm2 T-score is -1.1 Dissimilar scan types or analysis methods precludes assessment for calculating a significant change. Femoral neck BMD is 0.643 g/cm2 T-score is -1.9 FRAX: 10 year risk for a major osteoporotic fracture is 11 %, 10 year risk for ahip fracture is 1.9 % IMPRESSION: Low Bone Mass. REFERENCE: Bone mineral density: Normal (T-score above or = -1.0) Low bone mass (T-score between -1.0 and -2.5) replaces thepreviously used term osteopenia Osteoporosis (T-score = or below -2.5) Medical evaluation for secondary causes of low bone mineral density may be appropriate. FRAX is a World Health Organization validated fracture risk assessmenttool that calculates a person's 10 year probability of a major osteoporosisrelated fracture and hip fracture. According to the National OsteoporosisFoundation guidelines, postmenopausal women and men age 50 or older with low bonemass and a 10 year probability of a major osteoporosis related fracture = or greater than 20% or a 10 year probability of a hip fracture = or greaterthan 3% should be considered for treatment. For further information, including treatment recommendations, please referto the 2019 ISCD Official Positions (http://www.iscd.org) and the NOF's Clinician's Guide to Prevention and Treatment of Osteoporosis (http://www.nof.org/professionals/clinical-guidelines) THIS IS AN ELECTRONICALLY VERIFIED FINAL REPORT 03/05/2023 9:25 PM - Electronically signed by Lew Tiwari M.D. MF: [facility] Report ID: [id number] Reading Location: [place] [address] us Mabel Mullins MD IMG DXA PROCEDURES Final Resu lt * HM HEPATITIS C SCREENING (02/13/2017) [facility] HEP C Normal Comment:NEGATIVE Historical Provider HEALTH MAINTENANCE Final Result from Last 3 Months or Most Recently Relevant to Health Maintenance Insurance [employer] [facility] Address: [address] [address] [place] [address] [facility] Address: [address] [address] [place] [address] [employer] [facility] Address: [address] [address] [place] [address] Advance Directives For more information, please contact: [phone] * Full Code (Latest Code Status on File) Date Activated Date Inactivated Comments 04/03/2023 8:37 AM 04/03/2023 4:05 PM * Full Code Date Activated Date Inactivated Comments 01/31/2022 10:01 AM 01/31/2022 5:25 PM * Full Code Date Activated Date Inactivated Comments 04/04/2020 10:29 AM 04/04/2020 4:20 PM * Full Code Date Activated Date Inactivated Comments 04/04/2020 10:29 AM 04/04/2020 10:29 AM * Full Code Date Activated Date Inactivated Comments 01/19/2018 4:48 AM 01/22/2018 5:06 PM Care Teams Chute Loader Relationship Specialty Start Date End Date Mabel Mullins MD [address] [place] [address] PCP - General Infectious Diseases 02/17/20 Jh Tena MD Consulting Physician Cardiology 01/08/18 Carmen Hurst MD Consulting Physician Neurology 01/08/18 Reji Clarke DO [address] [place] [address] Referring Physician Orthopedic Surgery 08/17/19 Vaughn Melendez MD [address] [place] [address] Consulting Physician Gastroenterology 08/03/20 Frederick Burton DMD [address] [facility] [place] [address] Dentist Dental Photography Instructor 04/12/21 Doris Brenner DO [address] [facility] [address] [facility] [address] [place] [address] Consulting Physician Otolaryngology 12/28/21 Obdulio Kumar MD [address] [facility] [address] [place] [address] Consulting Physician Gastroenterology 04/03/23 [place] [address] [address] Consulting Physician Orthopedic Surgery 04/24/23 El Vo MD [address] [facility] [address] [place] [address] Referring Physician Orthopedic Surgery 10/15/23 Pati Yang NP [address] [facility] [address] [place] [address] Nurse Practitioner Cardiology 03/31/24
--- OUTSIDE RECORDS SUMMARY | 2024-12-30 14:19 | XMS_ITS | Clinical Summary ---
Author Organization [facility] Address [address] [place] [address] Phone Care Team Providers Care Bottle Washer Name Role Phone MILENA QUIROGA MD Unavailable [phone] MABEL MULLINS Primary Care Provider [phone] Reason for Visit and Chief Complaint visit for: Right Knee Pain - The Chief Complaint is: PRESENTS FOR GELSYN-3 INJ RT KNEE #1 OF3 Problems Includes: Problems addressed during this encounter and other active Problems Current Visit Onset Date Resolved Date Provider Conditio n Status Osteoarthritis Localized Primary Knee Right 09/27/2022 SHAQ Banegas Active Last Documented On 2 10:05AM ; [facility] History of Prior Surgery: Stent 04/12/2014 LEAH BRUNO RN JN Active Last Documented On 4 8:44AM ; [facility] Note: Unchanged History of Hysterectomy 04/05/2013 MAY Landeros RN JN Active Last Documented On 3 1:24PM ; [facility] Note: Unchanged Past Visits Onset Date Resolved Date Provider Condition Status Joint Pain in the Right Knee on the Inner Side 06/14/2022 SHAQ Banegas Active Last Documented On 2 1:24PM ; [facility] Anemia 04/16/2015 MAY BRUNO RN JN [place] Active Last Documented On 5 1:16PM ; [facility] Colonic Diverticulosis 04/16/2015 MAY BOSTON Active Last Documented On 5 1:15PM ; [facility] URGE INCONTINENCE 03/07/2011 CHRISSIE ROSADO M.D. Active Last Documented On 1 10:51AM ; [facility] Breast Fibroadenosis Chronic 01/25/2010 MAY BRUNO RN WHN P BC Active Last Documented On 04/13/2015 8:29AM ; [facility] Note: pt s/p removal and all mammogram p erformed by Dr. Clifford at [facility] CYST OF THYROID 01/25/2010 CHRISSIE RODRIGUEZ M.D. 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 This was the first injection in the series. She will follow up next week for the second injection in the series. - Last Documented On 11/07/2022 3:41PM ; [facility] Instructions to patient Intervention and counseling on cessation of tobacco use Last Documented On 3 3:29PM ; [facility] Assessments Includes: Assessments from this encounter Findings - [M17.11 - Unilateral primary osteoarthritis, right knee] Localized primary osteoarthritis of right knee - Last Documented On 11/07/2022 3:41PM ; [facility] Instructions Includes: Instructions from this encounter Instructions to patient Intervention and counseling on cessation of tobacco use Last Documented On 3 3:29PM ; [facility] Medical Equipment - Implanted Devices Includes: Current [...] On 06/14/2022 1:28PM By Ira ALVA ; [facility] hydrALAZINE HCl 100 MG Oral Tablet 06/14/2022 Provid er: Diagnosis: Last Documented On 06/14/2022 1:15PM By MARCY BHAT LPN ; [facility] Gabapentin 100 MG Oral Capsule 06/14/2022 Provider: Diagnosis: Last Documented On 06/14/2022 1:15PM By MARCY BHAT LPN ; [facility] Valsartan-hydroCHLOROthiazide 320-25 MG Oral Tablet Provider: Diagnosis: Last Documented On 06/14/2022 1:12PM By MARCY BHAT LPN ; [facility] NexIUM 40 MG Oral Capsule Delayed Release 06/14/2022 Provider: Diagnosis: Last Documented On 06/14/2022 1:12PM By MARCY BHAT LPN ; [facility] Furosemide 40 MG Oral Tablet 06/14/2022 Provider: Diagnosis: Last Documented On 06/14/2022 1:11PM By MARCY BHAT LPN ; [facility] Amiodarone HCl 200 MG Oral Tablet 06/14/2022 Provide r: Diagnosis: Last Documented On 06/14/2022 1:10PM By MARCY BHAT LPN ; [facility] Xarelto 20 MG Oral Tablet 06/14/2022 Provider: Diagnosis: Last Documented On 06/14/2022 1:10PM By MARCY BHAT LPN ; [facility] Calcium 600 MG Tablet 05/02/2016 Provider: Diagnosis: Last Documented On 05/02/2016 2:58PM By CLAUDIA REYES MA ; [facility] Multi Vitamin Daily Tablet 05/02/2016 Provider: Diagnosis: Last Documented On 05/02/2016 2:58PM By CLAUDIA REYES MA ; [facility] Irbesartan 300 MG Tablet 05/02/2016 Provider: Diagnosis: Last Documented On 05/02/2016 2:58PM By CLAUDIA REYES MA ; [facility] Metoprolol Succinate ER 25 MG Tablet Extended Re lease 24 Hour 05/02/2016 Provider: Diagnosis: Last Documented On 05/02/2016 2:57PM By CLAUDIA REYES MA ; [facility] Levothyroxine Sodium 175 MCG Tablet 05/02/2016 Provi blu: Diagnosis: Last Documented On 05/02/2016 2:57PM By CLAUDIA REYES MA ; [facility] oxyBUTYnin Chloride 5 MG OR TABS 04/12/2014 Provider : Diagnosis: Last Documented On 04/12/2014 8:27AM By AIRAM SARAVIA ; [facility] Livalo 1 MG OR TABS 04/12/2014 Provider: Diagnosis: Last Documented On 04/12/2014 8:27AM By AIRAM SARAVIA ; [facility] Past Medications on file Terconazole 0.8% VA CREA 04/05/2013 - 04/14/2013 Provider: MAY BRUNO RN [facility] Diagnosis: CANDIDAL VULVOVA GINITIS 1 PAULA IN VAGINA EVERY NIGHT X 3 APPLY BID TO EXTERNAL AREA Last Documented On 3 1:26PM By [facility] ; [facility] Diflucan 150 MG OR TABS 03/13/2012 - 03/14/2012 Provider: CHRISSIE ROSADO M.D. Diagnosis: CANDIDAL VULVOVA GINITIS 1 po x 1 day Last Documented On 2 12:45PM By DR. CHRISSIE ROSADO ; [facility] oxyBUTYnin Chloride 5 MG OR TABS 07/01/2011 - 12/28/2011 Provider: DARSHANA KAPOOR MD Diagnosis: Last Documented On 1 12:11AM By DARSHANA TORRES MD ; [facility] Aciphex 20 MG OR TBEC 05/27/2011 - 08/25/2011 Provider : MERY KAUFFMAN PA-C Diagnosis: Last Documented On 1 4:37PM By MERY KAUFFMAN PA-C ; [facility] Lisinopril-hydroCHLOROthiazi de 20-12.5 MG TABS 04/29/2011 - 08/27/2011 Provider: STEVEN FLORES PA-C Diagnosis: 1 qd #30 Last Documented On 04/29/2011 12:46PM By STEVEN FLORES PA-C ; [facility] Carbinoxamine Maleate 4 MG OR TABS 03/29/2011 - 05/28/2011 Provider: DARSHANA TORRES MD Diagnosis: ALLERGIC RHINITI S NOS Last Documented On 03/29/2011 1:37PM By Rosy ALVA ; [facility] Oxytrol 3.9 MG/24HR TD PTTW 03/07/2011 - 05/06/2011 Provider: CHRISSIE MILLER ON Ubaldo Diagnosis: URGE INCONTINENC E change patch q 72 hrs Last Documented On 1 10:56AM By DR. CHRISSIE ROSADO ; [facility] NexIUM 40 MG OR CPDR 03/01/2011 - 03/31/2011 Provider: STEVEN FLORES PA-C Diagnosis: Last Documented On 03/01/2011 9:52AM By STEVEN FLORES PA-C ; [facility] Flonase 50 MCG/ACT NA SUSP 11/15/2010 - 12/15/2010 Provider: JULES Banegas Diagnosis: ACUTE SINUSITIS NOS 2 sprays each nostril qd Last Documented On 11/15/2010 3:45PM By JULES MCCARTHY PA-C ; [facility] Zithromax Z-Kash 250 MG OR TABS 11/15/2010 - 11/20/2010 Provider: JULES Banegas Diagnosis: ACUTE SINUSITIS NOS Last Documented On 11/15/2010 3:12PM By JULES MCCARTHY PA-C ; [facility] Cefprozil 500 MG OR TABS 10/25/2010 - 11/04/2010 Provi blu: STEVEN FLORES PA-C Diagnosis: Last Documented On 10/25/2010 10:11AM By STEVEN FLORES PA-C ; [facility] Augmentin 875-125 MG OR TABS 09/11/2010 - 09/21/2010 P rovider: STEVEN FLORES PA-C Diagnosis: Last Documented On 09/11/2010 11:00AM By STEVEN FLORES PA-C ; [facility] Valtrex 1 GM OR TABS 08/20/2010 - 08/21/2010 Provider: STEVEN FLORES PA-C Diagnosis: HERPES SIMPLEX N OS 2 tabs po now, repeat in 12 hours Last Documented On 08/20/2010 5:51PM By STEVEN FLORES PA-C ; [facility] Levaquin 750 MG OR TABS 08/20/2010 - 08/25/2010 Provid er: STEVEN FLORES PA-C Diagnosis: BRONCHITIS NOS Last Documented On 08/20/2010 5:51PM By STEVEN FLORES PA-C ; [facility] Tussionex Pennkinetic ER 10-8 MG/5ML OR LQCR 08/20/2010 - 09/19/2010 Provider: STEVEN Banegas Diagnosis: BRONCHITIS NOS one tsp po BID PRN Last Documented On 08/20/2010 5:51PM By STEVEN FLORES PA-C ; [facility] Simvastatin 20 MG OR TABS 06/27/2010 - 12/24/2010 Prov ider: STEVEN FLORES PA-C Diagnosis: Last Documented On 06/27/2010 12:04PM By STEVEN FLORES PA-C ; [facility] Flonase 50 MCG/ACT NA SUSP 07/21/2009 - 08/20/2009 Pro vider: TANNER MYERS PA-C Diagnosis: 2 sprays q nare qd Last Documented On 07/21/2009 1:27PM By TANNER MYERS ; [facility] [place] 180 MG OR TABS 07/21/2009 - 08/20/2009 Provide r: TANNER MYERS PA-C Diagnosis: Last Documented On 07/21/2009 1:27PM By TANNER MYERS ; [facility] Protonix 40 MG OR TBEC 07/07/2009 - 07/17/2009 Provider: DARSHANA KAPOOR MD Diagnosis: REFLUX ESOPHAGIT IS Last Documented On 9 9:04AM By DARSHANA TORRES MD ; [facility] Medrol (Kash) 4 MG OR TABS 07/07/2009 - 07/13/2009 Prov ider: DARSHANA TORRES MD Diagnosis: COUGH as directed Last Documented On 9 9:04AM By DARSHANA TORRES MD ; [facility] Lisinopril-hydroCHLOROthiazi de 20-12.5 MG TABS 07/07/2009 - 08/06/2009 Provider: DARSHANA HEATON M.D. Diagnosis: Last Documented On 07/07/2009 8:34AM By Rosy ALVA ; [facility] Xyzal 5 MG OR TABS 06/19/2009 - 2009 Provider: STEVEN FLORES PA-C Diagnosis: DRUG ALLERGY NEC Last Documented On 06/19/2009 9:49PM By STEVEN FLORES PA-C ; [facility] [place] 180 MG OR TABS 06/09/2009 - 12/06/2009 Provide r: STEVEN FLORES PA-C Diagnosis: Last Documented On 06/09/2009 12:56PM By STEVEN FLORES PA-C ; [facility] oxyBUTYnin Chloride 5 MG OR TABS 06/03/2009 - 07/03/20 Provider: Diagnosis: Last Documented On 07/05/2009 11:25AM By Jonny Lamb ; [facility] Advair Diskus 250-50 MCG/[facility] 05/13/2009 - 06/10/2009 Provider: TANNER GRIFFITH PA-C Diagnosis: COUGH Last Documented On 05/13/2009 9:31AM By TANNER MYERS ; [facility] Ventolin HFA 108 (90 Base) MCG/ACT IN [facility] 05/13/2009 - 06/12/2009 Provider: TANNER GRIFFITH PA-C Diagnosis: COUGH 2 puffs q 4-6 hours prn. Last Documented On 05/13/2009 9:31AM By TANNER MYERS ; [facility] Singulair 10 MG OR TABS 05/05/2009 - 05/19/2009 Provider: STEVEN Banegas Diagnosis: PNEUMONIA, ORGAN ISM NOS Last Documented On 05/05/2009 4:06PM By STEVEN FLORES PA-C ; [facility] Advair Diskus 100-50 MCG/[place] [facility] 04/20/2009 - 05/18/2009 Provider: STEVEN Banegas Diagnosis: BRONCHITIS NOS one puff twice a day Last Documented On 04/20/2009 9:43AM By STEVEN FLORES PA-C ; [facility] predniSONE 20 MG OR TABS 04/20/2009 - 05/02/2009 Provi blu: STEVEN FLORES PA-C Diagnosis: BRONCHITIS NOS 3 x 3 d, 2 x 3d, 1x3d, 1/2 x 3d then d/c Last Documented On 04/20/2009 9:43AM By STEVEN FLORES PA-C ; [facility] Tussionex Pennkinetic ER 10-8 MG/5ML OR LQCR 04/20/2009 - 05/20/2009 Provider: STEVEN Banegas Diagnosis: BRONCHITIS NOS one tsp twice a day PRN Last Documented On 04/20/2009 9:43AM By STEVEN FLORES PA-C ; [facility] Proventil HFA 108 (90 Base) MCG/ACT IN [facility] 04/10/2009 - 05/10/2009 Provider: STEVEN [place] Diagnosis: ACUTE BRONCHITIS 2 puffs every 4-6 hours PRN Last Documented On 04/10/2009 11:51AM By STEVEN FLORES PA-C ; [facility] Tessalon Perles 100 MG OR CAPS 04/10/2009 - 05/10/2009 Provider: STEVEN Banegas Diagnosis: ACUTE BRONCHITIS 1-2 tabs tid PRN Last Documented On 04/10/2009 11:51AM By STEVEN FLORES PA-C ; [facility] Zithromax Z-Kash 250 MG OR TABS 04/10/2009 - 04/15/2009 Provider: STEVEN Banegas Diagnosis: ACUTE BRONCHITIS as directed Last Documented On 04/10/2009 11:51AM By STEVEN FLORES PA-C ; [facility] Simvastatin 20 MG OR TABS 12/30/2008 - 06/28/2009 Prov ider: Diagnosis: Last Documented On 02/09/2009 2:46PM By RACQUEL JIMENEZ ; [facility] Medications Administered Includes: Administered Medications from this encounter No Administered Medications Recorded Vital Signs Includes: Vital Signs from this encounter Vital Name 11/07/2022 03:29P Blood Pressure Sitting (mmHg) 116/72 Height (in) 66.5 Last Documented: On 11/07/2022 3:29PM ; [facility] Results Includes: Results discussed during this encounter No Results Recorded For Specified Dates History of Present Illness Includes: History of Present Illness from this encounter HPI BRIGIDA PRESCOTT is a 72 year old female. - Allergy list reviewed - Medication list reviewed Brigida follows up to start her Gelsyn series in the right knee. She describes only a few weeks of relief from her recent steroid injection. She denies any new symptoms. She denies any new or subsequent injury after last visit. Symptoms are consistent with osteoarthritis of the right knee Social History Description Last Updated Tobacco non-user 06/14/2022 Last Documented On 3 3:29PM ; [facility] Personal history plans to retire 10/05 0 05/27/2017 Last Documented On 3 3:29PM ; [facility] Alcohol use: 2 drinks or less per day RA RELY 05/27/2017 Last Documented On 3 3:29PM ; [facility] Education history 05/27/2017 Last Documented On 3 3:29PM ; [facility] In monogamous relationship 05/27/2017 Last Documented On 3 3:29PM ; [facility] Marital history 05/27/2017 Last Documented On 3 3:29PM ; [facility] Non-smoker 05/27/2017 Last Documented On 3 3:29PM ; [facility] Sexually active 05/27/2017 Last Documented On 3 3:29PM ; [facility] Smoking status : Never smoker 05/27/2017 Last Documented On 3 3:29PM ; [facility] Social history unchanged 05/27/2017 Last Documented On 3 3:29PM ; [facility] Currently 05/02/2016 Last Documented On 3 3:29PM ; [facility] Educational level 05/02/2016 Last Documented On 3 3:29PM ; [facility] Not using alcohol 05/02/2016 Last Documented On 3 3:29PM ; [facility] Procedures and Surgical History Includes: Procedures from this encounter Procedures Code Diagnosis Performing Provider Service L ocation Service Date intervention and counseling on cessation of tobacco use 4000F Last Documented On 3 3:29PM ; [facility] use of tobacco assessment performed 1000F Last Documented On 3 3:29PM ; [facility] patient screened for future fall risk: documentation of any fall with injury in past year 1100F Last Documented On 3 3:29PM ; [facility] review of medications documented 1160F Last Documented On 3 3:40PM ; [facility] encouragement to exercise Last Documented On 3 3:40PM ; [facility] Informed consent obtained Ri s and benefits [...] Verbal consent obtained Last Documented On 3 3:37PM ; [facility] Sodium Hyaluronate, 5 mg for intra-articular injection The right knee was prepped in aseptic technique. I injected Gelsyn viscosupplementation into the right knee using a 22 gauge 1-10/21 needle. Patient tolerated the procedure well and post procedure showed no signs of complications. Patient will be seen for the continuation of the series [id number] Last Documented On 3 3:37PM ; [facility] Surgical History Last Updated Surgical / procedural histor y SINUS SURGERY 11/02 ~THYROIDECTOMY 08/2015 benign nodules 05/02/2016 Last Documented On 3 3:29PM ; [facility] Surgical history unchanged 04/13/2015 Last Documented On 3 3:29PM ; [facility] History of total abdominal hysterectomy 04/12/2014 Last Documented On 3 3:29PM ; [facility] History of hysterectomy 06/15/19962012 Last Documented On 3 3:29PM ; [facility] Bilateral salpingo-oophorectomy 03/11/20 Last Documented On 3 3:29PM ; [facility] Breast Biopsy 03/07/2011 Last Documented On 3 3:29PM ; [facility] Stent 01/24/2010 Last Documented On 3 3:29PM ; [facility] History of cholecystectomy 01/24/2010 Last Documented On 3 3:29PM ; [facility] Medical History Includes: Medical History addressed during this encounter Description Last Updated Last mammogram date: 08/201605/27/2017 Last Documented On 3 3:29PM ; [facility] PRIMARY CARE PROVIDER : Dr. Cheryl Shukla ~ DR. LISA JOY ~DR. VALERIO BREAST SPECIALIST 04/13/2015 Last Documented On 3 3:29PM ; [facility] A colonoscopy was performed 09/26/2009 Varinder BOWLES 201304/13/2015 Last Documented On 3 3:29PM ; [facility] History of a DEXA of the lateral lumbar spine was performed 06/11/2013 04/13/2015 Last Documented On 3 3:29PM ; [facility] History of Pap smear done 03/11/201203/21 Last Documented On 3 3:29PM ; [facility] History of screening mammogram was perfo rmed 05/06/2014 04/13/2015 Last Documented On 3 3:29PM ; [facility] GERD ~hyperilpidemia ~LISA/BS O DUB ENDOMETRIOSIS ~2004- Bladder ~ ~urge incont. ~status post anterior repair 04/12/2014 Last Documented On 3 3:29PM ; [facility] No recent change in medical history 03/21 Last Documented On 3 3:29PM ; [facility] Result: normal 04/12/2014 Last Documented On 3 3:29PM ; [facility] Result: normal 04/12/2014 Last Documented On 3 3:29PM ; [facility] Status post hysterectomy DUB 04/05/2013 Last Documented On 3 3:29PM ; [facility] History of menopause 04/05/2013 Last Documented On 3 3:29PM ; [facility] LMP: 06/15/1996 04/05/2013 Last Documented On 3 3:29PM ; [facility] Last pap smear date 03/11/2012 03/11/2012 Last Documented On 3 3:29PM ; [facility] History of benign essential hypertension 03/07/2011 Last Documented On 3 3:29PM ; [facility] Taking OTC medications including Mucinex 08/20/2010 Last Documented On 3 3:29PM ; [facility] History of chronic reflux esophagitis Last Documented On 3 3:29PM ; [facility] History of thyroid disorder THYROID NODU LES 01/25/2010 Last Documented On 3 3:29PM ; [facility] Para 2 01/25/2010 Last Documented On 3 3:29PM ; [facility] Vaginal delivery 01/25/2010 Last Documented On 3 3:29PM ; [facility] 2 living children 01/15/2010 Last Documented On 3 3:29PM ; [facility] A mammogram was performed 07/30/0701/15 Last Documented On 3 3:29PM ; [facility] 2 01/15/2010 Last Documented On 3 3:29PM ; [facility] Hypertension 01/15/2010 Last Documented On 3 3:29PM ; [facility] History of essential hypertension 2008 Last Documented On 3 3:29PM ; [facility] Taking medication - prescrip tion Patient currently taking Levaquin. Finished Zithromax. Tussionex helping. Proventil inhaler seems to help for a little while 04/20/2009 Last Documented On 3 3:29PM ; [facility] Taking OTC pain medication /fever. Using Tylenol 04/10/2009 Last Documented On 3 3:29PM ; [facility] History of hypertension 02/09/2009 Last Documented On 3 3:29PM ; [facility] Surgery GALBLADDER 1978 ~BLADDER 02/20 Last Documented On 3 3:29PM ; [facility] Family History Includes: Family History addressed during this encounter Description Last Updated Maternal history of diabetes mellitus Mo ther 05/02/2016 Last Documented On 3 3:29PM ; [facility] Family history of diabetes mellitus Moth er 04/13/2015 Last Documented On 3 3:29PM ; [facility] Family history of hypercholesterolemia F ather 04/13/2015 Last Documented On 3 3:29PM ; [facility] Family history of hypertension Patient, Father 04/13/2015 Last Documented On 3 3:29PM ; [facility] Family history unchanged 04/13/2015 Last Documented On 3 3:29PM ; [facility] Spouse name: DARLING 03/07/2011 Last Documented On 3 3:29PM ; [facility] First child named 01/25/2010 Last Documented On 3 3:29PM ; [facility] No family history of malignant female br east neoplasm 01/25/2010 Last Documented On 3 3:29PM ; [facility] No family history of malignant neoplasm of the large intestine 01/25/2010 Last Documented On 3 3:29PM ; [facility] No family history of malignant neoplasm of the ovary 01/25/2010 Last Documented On 3 3:29PM ; [facility] No family history of uterine cancer 05/2010 Last Documented On 3 3:29PM ; [facility] Second child named 01/25/2010 Last Documented On 3 3:29PM ; [facility] Family history of Diabetes (m) 0 Last Documented On 3 3:29PM ; [facility] Family medical history of high blood pre ssure &hyperlipidemia(F) 01/15/2010 Last Documented On 3 3:29PM ; [facility] Brother BLOCKED ARTERIES 2008 Last Documented On 3 3:29PM ; [facility] Brother HAS MS 02/09/2009 Last Documented On 3 3:29PM ; [facility] Father 02/09/2009 Last Documented On 3 3:29PM ; [facility] Heart disease 02/09/2009 Last Documented On 3 3:29PM ; [facility] Mother 02/09/2009 Last Documented On 3 3:29PM ; [facility] Review of Systems Includes: Review of Systems from this encounter Systemic: No fever and no chills. Hematologic: No easy bleeding and no tendency for easy bruising. Neurological: No ataxia. No sensory disturbances. Psychological: No fear of falling. Past Medical: No fall in the past 6 months. Mental Status Includes: Mental Status from this encounter Description Oriented to time, place, and person Functional Status Includes: Functional Status from this encounter Description Ambulation did not require a cane Ambulation did not require a walker Ambulation did not require c rutches Physical Exam Includes: Physical Exam from this encounter Allergies Includes: Active Allergies Substance Type Reaction Onset Date Resolved Date Statu s Sulfa Antibiotics Allergy 02/09/2009 A ctive Last Documented On 3 3:29PM ; [facility] Fish Oil Allergy THROAT, MOUTH AND EARS ITCH 04/12/2014 Active Last Documented On 3 3:29PM ; [facility] CeleBREX Allergy 02/09/2009 Active Last Documented On 3 3:29PM ; [facility] Encounters Encounter Provider Location Date Check-In Time Check-Out Time Diagnosis FOLLOW UP SHAQ TOMPKINS C [facility] 11/07/19 23 3:24PM 3:33PM Osteoarthritis Localized Primary Knee Right Insurance Includes: Active Insurance Policies Plan Name Member ID Group # Subscriber Relationship Effect grant Dates - [facility]/MEDICARE ADV/[employer]ARP [id number] BRIGIDA lieberman Clinical Notes Includes: Clinical Notes from this encounter No Clinical Notes Recorded
--- OUTSIDE RECORDS SUMMARY | 2024-12-30 14:19 | XMS_ITS | Referral Summary ---
Author Organization [facility] Address [address] [place] [id number] Care Team Providers Care Stacker And Sorter Operator Name Role Phone Jh Tena MD Unavailable [phone] Carmen Hurst MD Unavailable Reji Clarke DO Unavailable [phone] Mabel Mullins MD Primary Care Provider [phone] Vaughn Melendez MD Unavailable [phone] Frederick Burton DMD Unavailable [phone] Doris Brenner DO Unavailable [phone] Obdulio Kumar MD Unavailable Catracho Fernandez MD Unavailable [phone] El Vo MD Unavailable [phone] Pati Yang NP Unavailable [phone] Encounters Date Type Department Care Team Description 12/29/2024 Telephone [facility] [address] [place] [address] Mabel Mullins MD 12/29/2024 11:30 AM CDT Office Visit [facility] [address] [place] [address] Mabel Mullins MD Medicare annual wellness visit, subsequent (Primary Dx); Essential hypertension; Mixed hyperlipidemia; Paroxysmal atrial fibrillation (HCC); Hypertensive heart disease with chronic diastolic congestive heart failure (HCC); Class 1 obesity due to excess calories with serious comorbidity and body mass index (BMI) of 30.0 to 30.9 in adult; Excoriation of right ear canal, initial encounter; Hyponatremia; Breast cancer screening by mammogram 12/24/2024 Orders Only [facility] Machine Operator at [address] [place] [id number] Pati Yang NP Hypertensive heart disease with chronic diastolic congestive heart failure (HCC) (Primary Dx); Atrial fibrillation status post cardioversion (HCC) 12/23/2024 Telephone [place] [employer] [facility] Operator at [address] [place] [id number] Ezequiel Orta MA 12/22/2024 Results Follow-Up [facility] [address] [facility] [address] [place] [address] Mabel Mullins MD 12/21/2024 12:00 PM SILVERING DEPARTMENT SUPERVISOR Lab [facility] [address] [facility] [address] [place] [address] Essential hypertension 11/08/2024 ACO Quality [facility] Accountable Care Organization [address] [place] [address] Janette Jaquez 10/11/[address] [facility] [address] [address] Franchesca Redd Successful Phone Call ([facility] cbp) 10/05/2024 Orders Only [facility] Health Information Management [address] [place] [id number] Mabel Mullins MD from Last 3 Months Allergies Active Allergy Reactions Criticality Noted Date Comments Celecoxib Anaphylaxis,Other (See comments),Hives,Swel ling High 08/07/2009 Reaction: swelling, , Reaction: anaphylaxis, Fish Containing Products Swelling,Other (See comments) Medium Reaction: throat itching, swelling, , Fish Oil Cough Low Mupirocin Other (See comments) Low Reaction: thinks she was allergic too this med, Shellfish Containing Products Other (See comments),Anaphylaxi s High 08/21/2012 Allergy tested Reaction: throat itch, nausea, Shellfish Derived Swelling,Other (See comments) Medium Reaction: throat itching, swelling, Ykodlrn-Irk-Sph Reductase Inhibitors Muscle pain Medium 06/18/2019 Sulfa [...] by mouth twice daily 180 capsule 1 Active levothyroxine (SYNTHROID) 200 mcg tabletIndications :Postoperative [...] orthopedics. Assessment & Plan (12/03/2023 12:11 PM SILVERING DEPARTMENT SUPERVISOR): After they removed fluid from her right knee, there was significant pain relief and it has not recurred. She takes Tylenol as needed. She uses diclofenac gel. She also has tramadol which she rarely uses because it makes her feel woozy. Assessment & Plan (11/08/2023 11:53 AM SILVERING DEPARTMENT SUPERVISOR): She developed pain and swelling in her [...] therapy. Assessment & Plan (10/29/2023 3:02 PM SILVERING DEPARTMENT SUPERVISOR): We ordered a PTH. Closed fracture of proximal end of left humerus with routine healing 04/24/2023 Overview (05/12/2023): Seeing Dr. Fernandez Assessment & Plan (09/12/2023 2:55 PM SILVERING DEPARTMENT SUPERVISOR): She requested a refill of tramadol to [...] weeks ago. She saw Dr. Fernandez at [facility]. Her arm is in a sling [...] Kumar. Assessment & Plan (09/04/2023 11:41 AM SILVERING DEPARTMENT SUPERVISOR): She is on Nexium twice a day. [...] 08/19/2022 Assessment & Plan (10/29/2023 3:06 PM SILVERING DEPARTMENT SUPERVISOR): Potassium was slightly low in the ER recently. We requested follow-up testing to see if replacement needs to be increased. Assessment & Plan (08/26/2022 1:02 PM SILVERING DEPARTMENT SUPERVISOR): Potassium is a little low, probably due to the effects of combined furosemide and hydrochlorothiazide. We will put her on a little potassium supplement. She already takes a magnesium supplement. Acute pain of right knee 06/07/2022 Assessment & Plan (09/10/2022 4:05 PM SILVERING DEPARTMENT SUPERVISOR): She developed acute pain in her right [...] then went to an orthopedic surgeon in [place] who ordered an MRI. We never got [...] (08/25/2022): Added automatically from request for surgery [id number], cardiac cath on 01/31/2022, Dr. Tena: 1. [...] diet Assessment & Plan (11/23/2021 3:14 PM SILVERING DEPARTMENT SUPERVISOR): With the onset of vertigo last Friday, [...] weeks. Assessment & Plan (10/29/2020 3:41 PM SILVERING DEPARTMENT SUPERVISOR): About three or four days ago she [...] level. Assessment & Plan (12/28/2020 9:35 AM SILVERING DEPARTMENT SUPERVISOR): Nocturnal leg cramps are improved with gabapentin. Continue same. Assessment & Plan (09/28/2020 11:41 AM SILVERING DEPARTMENT SUPERVISOR): She has had a slight benefit from gabapentin in her nocturnal leg cramps. She can only take 100 mg, otherwise she is excessively sedated. Continue same. Assessment & Plan (08/24/2020 1:07 PM SILVERING DEPARTMENT SUPERVISOR): She has been having cramps in her [...] (05/11/2023): Added automatically from request for surgery [id number], EGD 04/04/2020: Mild esophageal candidiasis, diffuse gastropathy with some retained food, small HH, Dr. Melendez, [facility]. Follow up endoscopy 04/03/2023, mild reactive gastropathy, [...] EGD. Assessment & Plan (12/28/2020 9:38 AM SILVERING DEPARTMENT SUPERVISOR): She is on Nexium for heartburn symptoms. It does not control her abdominal bloating which could have other causes. Assessment & Plan (10/29/2020 3:42 PM SILVERING DEPARTMENT SUPERVISOR): This could be causing or contributing to [...] scheduled for a right knee arthroscopy at [facility] to remove blood and control possible [...] anesthesiologist. Assessment & Plan (12/03/2023 12:10 PM SILVERING DEPARTMENT SUPERVISOR): Her latest sodium is stable or even a little improved. We will continue to monitor periodically. Lab Results Component Value Date GLUCOSE 116 10/29/2023 CALCIUM 9.3 10/29/2023 SODIUM 131 (L) 10/29/2023 POTASSIUM 3.4 10/29/2023 CO2 28 10/29/2023 CHLORIDE 88 (L) 10/29/2023 BUNSER 12 10/29/2023 CREATININE 0.79 10/29/2023 Assessment & Plan (11/08/2023 11:52 AM SILVERING DEPARTMENT SUPERVISOR): Labs done in the ER recently showed [...] 10/15/2023 Assessment & Plan (09/04/2023 11:43 AM SILVERING DEPARTMENT SUPERVISOR): Sodium is stable or even slightly improved [...] 02/26/2023 Assessment & Plan (08/26/2022 1:03 PM SILVERING DEPARTMENT SUPERVISOR): Sodium is little lower than her last [...] hands. Assessment & Plan (12/02/2021 1:59 PM SILVERING DEPARTMENT SUPERVISOR): She has had problems with low-sodium in the past, attributed to a combination of hydrochlorothiazide and furosemide to control swelling in her legs and blood pressure. Systolic blood pressure is mildly elevated today. She got IV fluids in the ER at [place]. We are checking follow-up electrolytes. Consider additional [...] needed. Assessment & Plan (10/12/2020 4:30 PM SILVERING DEPARTMENT SUPERVISOR): Sodium is stable but still low. It [...] today. Assessment & Plan (08/24/2020 1:06 PM SILVERING DEPARTMENT SUPERVISOR): She has a mild to moderate hyponatremia, [...] obstruction. Assessment & Plan (12/28/2020 9:40 AM SILVERING DEPARTMENT SUPERVISOR): For the past year or so, she [...] month. Assessment & Plan (08/26/2022 1:01 PM SILVERING DEPARTMENT SUPERVISOR): She sees Dr. Tena annually. She is [...] doing. Assessment & Plan (12/28/2020 9:37 AM SILVERING DEPARTMENT SUPERVISOR): There is no pitting edema in her legs. Lungs are clear. She seems to have better exercise tolerance, walking on the treadmill. Continue to monitor. Assessment & Plan (09/28/2020 11:43 AM SILVERING DEPARTMENT SUPERVISOR): Diastolic heart failure is probably contributing to fluid retention and hyponatremia. Currently she seems reasonably well controlled. Oxygen saturation is normal and lungs are clear. There is some swelling in her legs but it is not severe. Continue current therapy. Assessment & Plan (08/24/2020 1:05 PM SILVERING DEPARTMENT SUPERVISOR): She has no swelling in her legs. [...] therapy. Assessment & Plan (09/04/2023 11:44 AM SILVERING DEPARTMENT SUPERVISOR): She takes levothyroxine. We are monitoring periodically with labs. Lab Results Component Value Date TSH 1.23 08/28/2023 Assessment & Plan (03/03/2023 1:05 PM CDT): We will check a TSH before her next visit in about six months. Lab Results Component Value Date TSH 0.74 08/19/2022 Assessment & Plan (08/26/2022 1:04 PM SILVERING DEPARTMENT SUPERVISOR): She is on a stable dose of [...] 09/21/2020 Assessment & Plan (12/28/2020 9:34 AM SILVERING DEPARTMENT SUPERVISOR): TSH is normal on current therapy. I do not think this is contributing to her hypothyroidism. Lab Results Component Value Date TSH 1.06 09/21/2020 Assessment & Plan (08/24/2020 1:09 PM SILVERING DEPARTMENT SUPERVISOR): She is on a fairly high replacement [...] followed by DC cardioversion to NSR, 01/21/18, [facility]. Assessment & Plan (12/28/2024 7:46 PM CDT): [...] (HCC) WRITTEN ON 09/04/2023 11:40 AM BY MBAEL MULLINS MD Heart rate is regular today. [...] a feeling of palpitations. She wore another case monitor and turned it in this morning. There [...] She was scheduled for an arthroscopy at [facility] which was delayed because of hyponatremia, [...] level. Assessment & Plan (09/04/2023 11:43 AM SILVERING DEPARTMENT SUPERVISOR): She is on a vitamin-D supplement and [...] hyponatremia. Assessment & Plan (09/10/2022 4:07 PM SILVERING DEPARTMENT SUPERVISOR): We are referring her back to sleep specialist for reassessment of treatment. Assessment & Plan (08/24/2020 1:08 PM SILVERING DEPARTMENT SUPERVISOR): She continues on CPAP. She had some [...] Assessment & Plan (01/23/2018 12:05 PM CDT): Boaz sleepiness scale score 14 on 01/23/2018 Referred [...] colon 04/16/2015 Overview (08/25/2022): Chart entry from [facility], details lacking. Anemia 04/16/2015 Overview (08/25/2022): Mild, intermittent normocytic anemia first noted at [facility]. Assessment & Plan (03/14/2023 10:38 PM CDT): [...] morning. Assessment & Plan (09/04/2023 11:40 AM SILVERING DEPARTMENT SUPERVISOR): Symptoms are controlled on Astelin and Flonase [...] months. Assessment & Plan (09/04/2023 11:43 AM SILVERING DEPARTMENT SUPERVISOR): She takes Zetia. She is intolerant of [...] statins. Assessment & Plan (08/26/2022 1:03 PM SILVERING DEPARTMENT SUPERVISOR): She did not tolerate statins, but is [...] months. Assessment & Plan (11/04/2017 12:01 PM SILVERING DEPARTMENT SUPERVISOR): Lipid abnormalities are unchanged. Nutritional counseling was provided. and Pharmacotherapy as ordered. Lipids will be reassessed in 6 months. Chronic fibroadenosis of breast 01/25/2010 Overview (08/25/2022): Note from [facility]: s/p removal (of fibroadenoma) and all mammogram [...] efforts. Assessment & Plan (11/08/2023 11:52 AM SILVERING DEPARTMENT SUPERVISOR): She is concerned about involuntary weight loss. She usually weighs over 200 lb. Lately she does not feel like eating but denies nausea or abdominal pain. Bowel habits are normal. We will see her back in a month for a follow-up. Assessment & Plan (09/04/2023 11:44 AM SILVERING DEPARTMENT SUPERVISOR): We encouraged attention to her diet, and hopefully a little bit of weight loss. Assessment & Plan (03/03/2023 1:04 PM CDT): We encouraged attention to her diet, and hopefully some weight loss. Assessment & Plan (08/26/2022 1:04 PM SILVERING DEPARTMENT SUPERVISOR): We encouraged attention to her diet, and [...] cardiology. Assessment & Plan (09/04/2023 11:42 AM SILVERING DEPARTMENT SUPERVISOR): Blood pressure is mildly elevated. Dr. Tena [...] in office today at 154/84 (62). Admits numerical control drill press operator recently stopped Metoprolol due to low HR. Taking Diovan, hydralyzine, and lasix as ordered. No acute findings on exam. Monitor at home daily and record bring to next office visit. Low salt diet, stay hydrated. Assessment & Plan (08/26/2022 1:01 PM SILVERING DEPARTMENT SUPERVISOR): Blood pressure is in a reasonable range [...] 02/13/2022 Assessment & Plan (11/23/2021 3:16 PM SILVERING DEPARTMENT SUPERVISOR): Systolic blood pressure is mildly elevated. We [...] days. Assessment & Plan (12/28/2020 9:38 AM SILVERING DEPARTMENT SUPERVISOR): Blood pressure is in a reasonable range today. She gets similar or lower blood pressures at home with occasional systolics of 150 in the afternoon or evening. Continue current therapy. Assessment & Plan (09/28/2020 11:42 AM SILVERING DEPARTMENT SUPERVISOR): Blood pressure is in a good range on current therapy. Continue same. Assessment & Plan (09/02/2020 2:45 PM SILVERING DEPARTMENT SUPERVISOR): She is on quite a few medicines [...] cardiac concerns and blood pressure with her numerical control drill press operator to decrease the possibility of confusion with [...] a blood pressure log to present to numerical control drill press operator and or primary care physician for further [...] have referred her to the ER at [facility] for monoclonal antibody infusion. She will continue [...] needed. Assessment & Plan (12/28/2021 2:34 PM SILVERING DEPARTMENT SUPERVISOR): Right Benign Positional Vertigo treated with Enrrique maneuver today Hearing and Balance testing [facility] Dr. Cortez Smith [phone] [address] [place] [address] Cetirizine 5 mg (1/2 Tablet) daily Consider Left sided ear tube placement versus imaging based on hearing and balance testing Vertigo 11/16/2021 08/26/2022 Overview (08/26/2022): Seen in [place] ER. Rx with meclizine. No recurrence as of July 2022. Saw breastfeeding educator for this and ringing. Assessment & Plan (12/02/2021 1:57 PM SILVERING DEPARTMENT SUPERVISOR): She woke up early Friday morning with pretty bad vertigo. There was associated tinnitus. She has not noticed any hearing loss. The only preceding symptom was some mild positional vertigo at the hairdresser the previous Friday. She went to [facility] ER and had labs and a [...] (08/22/2020): Added automatically from request for surgery [id number], see EGD, improved with treatment of Steff. [...] Nasal saline spray (Simply saline, Little Remedies, Sutter, Evergreen) 2 second sprays or 2 squeezes into [...] Follow up in one week. Speak to [facility] on Friday regarding Xarelto Assessment & Plan (05/30/2020 4:18 PM CDT): Start Nasal saline spray (Simply saline, Little Remedies, Sutter, Evergreen) 2 second sprays or 2 squeezes into [...] Cardiac status will be reassessed by her numerical control drill press operator. metoprolol xl 50 mg qd Assessment & Plan (07/16/2018 4:52 PM CDT): No chest pain today. Stable. Assessment & Plan (01/19/2018 9:28 AM CDT): Sec undertaker assistant lower mid chest area without radiation. Patient has a very minimum ST depression in the lateral leads which is the same in comparison to prior EKGs. Her symptoms are minimum now. She is ruled out for of acute NE with serial troponins and EKGs. Cardiology consult [...] 06/03/2018 Assessment & Plan (12/02/2017 9:42 AM SILVERING DEPARTMENT SUPERVISOR): Depo-Medrol 80mg IM x 1 now. Nebulized TX DuoNeb given. Rxs given, increase fluids, rest. Pseudophakia of both eyes 04/11/2017 Non-toxic multinodular goiter 03/05/2014 07/03/2018 Overview (01/24/2017): NONTOX MULTINODUL GOITER Chronic sinusitis 11/10/2012 11/04/2017 Overview (01/23/2017): Chronic sinusitis Thyroid nodule 02/17/2012 11/04/2017 Overview (01/23/2017): Thyroid nodule Postmenopausal 04/19/2010 02/17/2020 Non morbid obesity 04/19/2010 Assessment & Plan (12/28/2020 9:35 AM SILVERING DEPARTMENT SUPERVISOR): Her weight is unchanged. She is trying to lose weight. I encouraged her efforts. I encouraged smaller meal sizes to deal with abdominal bloating. Assessment & Plan (10/12/2020 4:29 PM SILVERING DEPARTMENT SUPERVISOR): She saw a dietitian. She did great [...] months. Assessment & Plan (08/24/2020 1:08 PM SILVERING DEPARTMENT SUPERVISOR): She has joined a [facility] sponsored diet program and has lost a little bit of weight. She plans to continue her efforts which consist of portion control and staying active. Chest pain 01/23/2018 Immunizations Immunization Administration Dates Next Due Influenza, [...] 10/20/2002 ZOSTER LIVE 07/02/2011 ZOSTER Recombinant 02/21/2021,08/25/2020 Social History Tobacco Use Types Packs/Day Years [...] on file Legal Sex Female 12:10 AM SILVERING DEPARTMENT SUPERVISOR Gender Identity Female 05/03/2020 10:38 PM CDT [...] 12/29/2024 11:32 AM CDT Plan of Treatment Not on file Medical Devices Implanted Type Area Heat Treating Bluer Device Identifier Shelf Expiration Date Model / Serial / Lot Angio-Seal Evolution 6fr Vascular Closure [id number] - [id number] Implanted:Qty: 1 on 01/31/2022 by Jh Tena MD at [facility] Other - see comments Volve 10/19/2022 [id number] / / [id number] Procedures Procedure Name Priority Date/Time Associated Diagnosis Comments EGFR Routine 12/21/2024 11:58 AM SILVERING DEPARTMENT SUPERVISOR Essential hypertension THYROID FUNCTION CASCADE Routine 12/21/2024 11:58 AM SILVERING DEPARTMENT SUPERVISOR Essential hypertension BASIC METABOLIC PANEL Routine 12/21/2024 11:58 AM SILVERING DEPARTMENT SUPERVISOR Essential hypertension SCAN - RADIOLOGY/IMAGING 10/05/2024 1:46 PM SILVERING DEPARTMENT SUPERVISOR SCREENING MAMMOGRAM BILATERAL W VIRGILIO Schedule Routine, [...] Maintenance Results * eGFR (12/21/2024 11:58 AM SILVERING DEPARTMENT SUPERVISOR) eGFR 77 >=60 mL/min/1. 73 m2 Comment: [...] was last reviewed 2021. Testing performed by: [address] [address] Blood 12/21/2024 11:5 8 AM SILVERING DEPARTMENT SUPERVISOR 12/21/2024 6:26 PM SILVERING DEPARTMENT SUPERVISOR Mabel Mullins MD LAB BLOOD ORDERABLES Final Re sult Performing Organization Address City/[facility]/ZIP Co de Phone Number FRANCESCA ROBINS [id number] [address] [place] [address] * Thyroid Function Mason (12/21/2024 11:58 AM SILVERING DEPARTMENT SUPERVISOR) [facility] TSH 0.32 0.30 - 4.20 mcIUnit/mL Comment:Testing performed by : [address] [address] Blood 12/21/2024 11:5 8 AM SILVERING DEPARTMENT SUPERVISOR 12/21/2024 6:10 PM SILVERING DEPARTMENT SUPERVISOR Mabel Mullins MD LAB BLOOD ORDERABLES Final Re sult FRANCESCA [address] [place] [address] * (ABNORMAL) Basic metabolic panel (12/21/2024 11:58 AM SILVERING DEPARTMENT SUPERVISOR) [facility] Signature Sodium 128(L) 135 - 145 mmol/L Comment:Testing performed by : [facility], [address] [place] [address]., [address] Potassium, pl 3.6 3.3 - 4.9 mmol/L CERNER Comment:Testing performed by : [facility], [address] [place] [address]., [address] Chloride 89(L) 97 - 110 mmol/L CERNER Comment:Testing performed by : [facility], [address] [place] [address], [address] CO2 26 22 - 32 mmol/L CERNER CH Comment:Testing performed by : [facility], [address] [place] [address], [address] Anion gap 13 2 - 15 mmol/L CERNER Comment:Testing performed by : [facility], [address] [place] [address], [address] BUN 13 6 - 25 mg/dL CERNER CH Comment:Testing performed by : [address], [address] Creatinine 0.81 0.60 - 1.10 mg/dL CERNER Comment:Testing performed by : [address], [address] Glucose 112 70 - 199 mg/dL CERNER Comment: Interpretive Data Fasting glucose >/= 126 [...] classification and Diagnosis of Diabetes Diabetes Care 202; 46: S19-S40. Current interpretive data was last revised 2022. Testing performed by: [facility], [address] [place] [address]., [address] Calcium 8.9 8.5 - 10.3 mg/dL CERNER Comment:Testing performed by : [address] [address] Blood 12/21/2024 11:5 8 AM SILVERING DEPARTMENT SUPERVISOR 12/21/2024 6:10 PM SILVERING DEPARTMENT SUPERVISOR us Mabel Mullins MD LAB BLOOD ORDERABLES Final Re sult FRANCESCA ROBINS [address] [address] Department [place] [address] * SCAN - RADIOLOGY/IMAGING (10/05/2024 1:46 PM SILVERING DEPARTMENT SUPERVISOR) Anatomical Region Laterality Modality Other us Mabel [...] Category 1: Negative PATIENT LETTER SENT us Mbael Mullins MD IMG MAMMO PROCEDURES Final Re sult * COLONOSCOPY (04/03/2023 8:38 AM CDT) Anatomical Region Laterality Modality Other Narrative Procedure Note Obdulio Kumar MD - 04/03/2023 8:38 AM CDT [facility] Patient Name: Brigida Ordaz Procedure Date: 04/03/2023 8:38 AM Date of : 1950 Admit Type: Outpatient Age: 72 Gender: Female Attending MD: Obdulio Kumar M.D. Room: [facility] ENDOSCOPY ROOM 2 Note Status: Finalized Patient Profile: This is a 72 year old female hx of HLD, HTN, AFib status post cardioversion on Xarelto, CAD, thyroid nodules, hypothyroidism, chronic iron deficiency anemia and chronic hyponatremia here forcolonoscopy for iron-deficiency anemia. Last [id number]/2014 showed hemorrhoids and mild diverticulosis. Nofamily history [...] procedure were verified by the physician, the newspaper deliverer and the waste management recycling technician in the endoscopy suite. Mental Status [...] scope was passed under direct vision. TheColonoscope [id number] was introduced through the anus and advanced [...] 8:38 AM Procedure Code(s): --- Professional --- 22587, Colonoscopy, flexible; diagnostic, including collection of specimen(s) by brushing or washing, when performed (separateprocedure) --- Technical --- 82659, Colonoscopy, flexible; diagnostic, including collection of specimen(s) by brushing or washing, when performed (separateprocedure) Diagnosis Code(s): --- Professional --- K64.8, Other hemorrhoids K64.4, Residual hemorrhoidal skin tags D50.9, Iron deficiency anemia, unspecified --- Technical --- K64.8, Other hemorrhoids K64.4, Residual hemorrhoidal skin tags D50.9, Iron deficiency anemia, unspecified CPT copyright 2020 [employer]. All rights reserved. The codes documented in this report are preliminary and upon category specialist reviewmay be revised to meet current compliance requirements. Recognized by the [employer] for promoting quality in endoscopy us Obdulio Kumar MD ENDOSCOPY PROCEDURES Final Resul t * Dexa Axial Skeleton Bone Density 1 or 2 Site (03/05/2023 12:55 PM CDT) Anatomical Region Laterality Modality Body N/A Other 03/05/2023 9:25 PM CDT Narrative 03/05/2023 9:25 PM CDT EXAM DESCRIPTION: DEXA AXIAL SKELETON BONE DENSITY 1 OR MORE SITES REASON FOR STUDY: 72 y/o year old F with given history of screening. Postmenopausal Heat Treating Bluer/Model: Vedantu Discovery SL (S/N [id number]) CLINICAL INFORMATION: Current height: 66 inches Maximum [...] Lew Tiwari M.D. MF: HAYLEY Report ID: [id number] Reading Location: [place] [address] Procedure Note Lew Tiwari MD - 03/05/2023 EXAM DESCRIPTION: DEXA AXIAL SKELETON BONE DENSITY 1 OR MORE SITES REASON FOR STUDY: 72 y/o year old F with given history of screening. Postmenopausal Heat Treating Bluer/Model: Vedantu Discovery SL ([id number]/N [id number]) CLINICAL INFORMATION: Current height: 66 inches Maximum [...] Lew Tiwari M.D. MF: HAYLEY Report ID: [id number] Reading Location: [place] [address] Mabel Mullins MD IMG DXA PROCEDURES Final Resu lt * HEPATITIS C SCREENING (02/13/2017) [facility] HEP C Normal Comment:NEGATIVE us Historical Provider HEALTH MAINTENANCE Final Result from Last 3 Months or Most Recently Relevant to Health Maintenance Insurance MEDICARE SOLUTIONS MDCR HMO REF MEDICARE SOLUTIONS Advance Directives For more information, please contact: [phone] * Full Code (Latest Code Status on [...] 4:48 AM 01/22/2018 5:06 PM Care Teams Stacker And Sorter Operator Relationship Specialty Start Date End Date Mabel Mullins MD [address] [place] [address] PCP - General Infectious Diseases 02/17/20 Jh Tena MD Consulting Physician Cardiology 01/08/18 Carmen Hurst MD Consulting Physician Neurology 01/08/18 Reji Clarke DO [address] [place] [id number] Referring Physician Orthopedic Surgery 08/17/19 Vaughn Melendez MD [address] [place] [address] Consulting Physician Gastroenterology 08/03/20 Frederick Burton DMD [address] [place] [address] Dentist Dental Drift Miner 04/12/21 Doris Brenner DO [address] [facility] [address] [place] [facility] [address] [place] [address] Consulting Physician Otolaryngology 12/28/21 Obdulio Kumar MD [address] [place] [address] [address] [place] [address] Consulting Physician Gastroenterology 04/03/23 [place] [id number] [facility] [address] [place] [address] Consulting Physician Orthopedic Surgery 04/24/23 El Vo MD [address] [address] Referring Physician Orthopedic Surgery 10/15/23 Pati Yang NP [address] [address] Nurse Practitioner Cardiology 03/31/24
--- OUTSIDE RECORDS SUMMARY | 2024-12-30 14:20 | XMS_ITS | Clinical Summary ---
Author Organization [facility] Address [address] [place] [address] Phone Care Team Providers Care Jitterbug Operator Name Role Phone MILENA QUIROGA MD Unavailable [phone] MABEL MULLINS Primary Care Provider [phone] Reason for Visit and Chief Complaint visit for: Right Knee Pain - The Chief Complaint is: PRESENTS FOR RT KNEE, GELSYN-3 INJ #3 OF 3 Problems Includes: Problems addressed during this encounter and other active Problems Current Visit Onset Date Resolved Date Provider Conditio n Status Osteoarthritis Localized Primary Knee Right 09/27/2022 SHAQ Banegas Active Last Documented On 2 10:05AM ; [facility] History of Prior Surgery: Stent 04/12/2014 LEAH BRUNO RN JN Active Last Documented On 4 8:44AM ; [facility] Note: Unchanged History of Hysterectomy 04/05/2013 MAY Landeros RN JN Active Last Documented On 3 1:24PM ; [facility] Note: Unchanged Past Visits Onset Date Resolved Date Provider Condition Status Joint Pain in the Right Knee on the Inner Side 06/14/2022 SHAQ Banegas Active Last Documented On 2 1:24PM ; [facility] Anemia 04/16/2015 MAY BRUNO RN JN [place] Active Last Documented On 5 1:16PM ; [facility] Colonic Diverticulosis 04/16/2015 MAY BRUNO RN JN [place] Active Last Documented On 5 1:15PM ; [facility] URGE INCONTINENCE 03/07/2011 CHRISSIE ROSADO M.D. Active Last Documented On 1 10:51AM ; [facility] Breast Fibroadenosis Chronic 01/25/2010 MAY BRUNO RN WHN P BC Active Last Documented On 04/13/2015 8:29AM ; [facility] Note: pt s/p removal and all mammogram p erformed by Dr. Clifford at [facility] CYST OF THYROID 01/25/2010 CHRISSIE RODRIGUEZ M.D. Active Last Documented On 01/25/2010 1:41PM ; [facility] Note: pt to see ent and wrap yarn sorter Esophageal Reflux 01/15/2010 DARSHANA TORRES MD Active Last Documented On 0 10:38PM ; [facility] Hyperlipidemia 02/09/2009 DARSHANA TORRES MD Active Last Documented On 0 10:38PM ; [facility] Essential Hypertension Benign 02/09/2009 DARSHANA TORRES MD Active Last Documented On 0 10:38PM ; [facility] Plan of Treatment She was given her third and final injection of Gelsyn in the right knee. She was encouraged to follow-up with a phone call in the next four weeks to let us know how she is doing. She failed to get any relief from this, we may need to look further into her back due to the sciatica type symptoms she is feeling on her left leg as well as the pain that she has along the lateral aspect of the right lower leg. We talked about the potential for an L5 S1 issue stemming from the low back. She does have underlying arthritic findings that were noted on her right knee MRI with cartilage wear underneath the patella and on the tibial plateau. She did get some relief previously with steroid injections but not anything long-term. It is possible that her lower leg discomfort that she notices now is due to compensating for the pain that she has in her knee. - Last Documented On 11/21/2022 3:45PM ; [facility] Assessments Includes: Assessments from this encounter Findings - [M17.11 - Unilateral primary osteoarthritis, right knee] Localized primary osteoarthritis of right knee - Last Documented On 11/21/2022 3:45PM ; [facility] Medical Equipment - Implanted Devices Includes: Current [...] On 06/14/2022 1:28PM By Ira ALVA ; [facility] hydrALAZINE HCl 100 MG Oral Tablet 06/14/2022 Provid er: Diagnosis: Last Documented On 06/14/2022 1:15PM By MARCY BHAT LPN ; [facility] Gabapentin 100 MG Oral Capsule 06/14/2022 Provider: Diagnosis: Last Documented On 06/14/2022 1:15PM By MARCY BHAT LPN ; [facility] Valsartan-hydroCHLOROthiazide 320-25 MG Oral Tablet Provider: Diagnosis: Last Documented On 06/14/2022 1:12PM By MARCY BHAT LPN ; [facility] NexIUM 40 MG Oral Capsule Delayed Release 06/14/2022 Provider: Diagnosis: Last Documented On 06/14/2022 1:12PM By MARCY BHAT LPN ; [facility] Furosemide 40 MG Oral Tablet 06/14/2022 Provider: Diagnosis: Last Documented On 06/14/2022 1:11PM By MARCY BHAT LPN ; [facility] Amiodarone HCl 200 MG Oral Tablet 06/14/2022 Provide r: Diagnosis: Last Documented On 06/14/2022 1:10PM By MARCY BHAT LPN ; [facility] Xarelto 20 MG Oral Tablet 06/14/2022 Provider: Diagnosis: Last Documented On 06/14/2022 1:10PM By MARCY BHAT LPN ; [facility] Calcium 600 MG Tablet 05/02/2016 Provider: Diagnosis: Last Documented On 05/02/2016 2:58PM By CLAUDIA REYES MA ; [facility] Multi Vitamin Daily Tablet 05/02/2016 Provider: Diagnosis: Last Documented On 05/02/2016 2:58PM By CLAUDIA REYES MA ; [facility] Irbesartan 300 MG Tablet 05/02/2016 Provider: Diagnosis: Last Documented On 05/02/2016 2:58PM By CLAUDIA REYES MA ; [facility] Metoprolol Succinate ER 25 MG Tablet Extended Re lease 24 Hour 05/02/2016 Provider: Diagnosis: Last Documented On 05/02/2016 2:57PM By CLAUDIA REYES MA ; [facility] Levothyroxine Sodium 175 MCG Tablet 05/02/2016 Provi blu: Diagnosis: Last Documented On 05/02/2016 2:57PM By CLAUDIA REYES MA ; [facility] oxyBUTYnin Chloride 5 MG OR TABS 04/12/2014 Provider : Diagnosis: Last Documented On 04/12/2014 8:27AM By AIRAM SARAVIA ; [facility] Livalo 1 MG OR TABS 04/12/2014 Provider: Diagnosis: Last Documented On 04/12/2014 8:27AM By AIRAM SARAVIA ; [facility] Past Medications on file Terconazole 0.8% VA CREA 04/05/2013 - 04/14/2013 Provider: MAY BRUNO RN JN Diagnosis: CANDIDAL VULVOVA GINITIS 1 PAULA IN VAGINA EVERY NIGHT X 3 APPLY BID TO EXTERNAL AREA Last Documented On 3 1:26PM By MAY GARNICA- ; [facility] Diflucan 150 MG OR TABS 03/13/2012 - 03/14/2012 Provider: CHRISSIE ROSADO M.D. Diagnosis: CANDIDAL VULVOVA GINITIS 1 po x 1 day Last Documented On 2 12:45PM By DR. CHRISSIE ROSADO ; [facility] oxyBUTYnin Chloride 5 MG OR TABS 07/01/2011 - 12/28/2011 Provider: DARSHANA KAPOOR MD Diagnosis: Last Documented On 1 12:11AM By DARSHANA TORRES MD ; [facility] Aciphex 20 MG OR TBEC 05/27/2011 - 08/25/2011 Provider : MERY KAUFFMAN PA-C Diagnosis: Last Documented On 1 4:37PM By MERY KAUFFMAN PA-C ; [facility] Lisinopril-hydroCHLOROthiazi de 20-12.5 MG TABS 04/29/2011 - 08/27/2011 Provider: STEVEN FLORES PA-C Diagnosis: 1 qd #30 Last Documented On 04/29/2011 12:46PM By STEVEN FLORES PA-C ; [facility] Carbinoxamine Maleate 4 MG OR TABS 03/29/2011 - 05/28/2011 Provider: DARSHANA TORRES MD Diagnosis: ALLERGIC RHINITI S NOS Last Documented On 03/29/2011 1:37PM By Rosy ALVA ; [facility] Oxytrol 3.9 MG/24HR TD PTTW 03/07/2011 - 05/06/2011 Provider: CHRISSIE JORDAN M.D. Diagnosis: URGE INCONTINENC E change patch q 72 hrs Last Documented On 1 10:56AM By DR. CHRISSIE ROSADO ; [facility] NexIUM 40 MG OR CPDR 03/01/2011 - 03/31/2011 Provider: STEVEN FLORES PA-C Diagnosis: Last Documented On 03/01/2011 9:52AM By STEVEN FLORES PA-C ; [facility] Flonase 50 MCG/ACT NA SUSP 11/15/2010 - 12/15/2010 Provider: JULES Banegas Diagnosis: ACUTE SINUSITIS NOS 2 sprays each nostril qd Last Documented On 11/15/2010 3:45PM By JULES MCCARTHY PA-C ; [facility] Zithromax Z-Kash 250 MG OR TABS 11/15/2010 - 11/20/2010 Provider: JULES Banegas Diagnosis: ACUTE SINUSITIS NOS Last Documented On 11/15/2010 3:12PM By JULES MCCARTHY PA-C ; [facility] Cefprozil 500 MG OR TABS 10/25/2010 - 11/04/2010 Provi blu: STEVEN FLORES PA-C Diagnosis: Last Documented On 10/25/2010 10:11AM By STEVEN FLORES PA-C ; [facility] Augmentin 875-125 MG OR TABS 09/11/2010 - 09/21/2010 Pawan batesder: STEVEN FLORES PA-C Diagnosis: Last Documented On 09/11/2010 11:00AM By STEVEN FLORES PA-C ; [facility] Valtrex 1 GM OR TABS 08/20/2010 - 08/21/2010 Provider: STEVEN FLORES PA-C Diagnosis: HERPES SIMPLEX N OS 2 tabs po now, repeat in 12 hours Last Documented On 08/20/2010 5:51PM By STEVEN FLORES PA-C ; [facility] Levaquin 750 MG OR TABS 08/20/2010 - 08/25/2010 Provid er: STEVEN FLORES PA-C Diagnosis: BRONCHITIS NOS Last Documented On 08/20/2010 5:51PM By STEVEN FLORES PA-C ; [facility] Tussionex Pennkinetic ER 10-8 MG/5ML OR LQCR 08/20/2010 - 09/19/2010 Provider: STEVEN Banegas Diagnosis: BRONCHITIS NOS one tsp po BID PRN Last Documented On 08/20/2010 5:51PM By STEVEN FLORES PA-C ; [facility] Simvastatin 20 MG OR TABS 06/27/2010 - 12/24/2010 Prov ider: STEVEN FLORES PA-C Diagnosis: Last Documented On 06/27/2010 12:04PM By STEVEN FLORES PA-C ; [facility] Flonase 50 MCG/ACT NA SUSP 07/21/2009 - 08/20/2009 Pro vider: TANNER MYERS PA-C Diagnosis: 2 sprays q nare qd Last Documented On 07/21/2009 1:27PM By TANNRE MYERS ; [facility] [place] 180 MG OR TABS 07/21/2009 - 08/20/2009 Provide r: TANNER MYERS PA-C Diagnosis: Last Documented On 07/21/2009 1:27PM By TANNER MYERS ; [facility] Protonix 40 MG OR TBEC 07/07/2009 - 07/17/2009 Provider: DARSHANA KAPOOR MD Diagnosis: REFLUX ESOPHAGIT IS Last Documented On 9 9:04AM By DARSHANA TORRES MD ; [facility] Medrol (Kash) 4 MG OR TABS 07/07/2009 - 07/13/2009 Prov ider: DARSHANA TORRES MD Diagnosis: COUGH as directed Last Documented On 9 9:04AM By DARSHANA TORRES MD ; [facility] Lisinopril-hydroCHLOROthiazi de 20-12.5 MG TABS 07/07/2009 - 08/06/2009 Provider: DARSHANA HEATON M.D. Diagnosis: Last Documented On 07/07/2009 8:34AM By Rosy ALVA ; [facility] Xyzal 5 MG OR TABS 06/19/2009 - 2009 Provider: STEVEN FLORES PA-C Diagnosis: DRUG ALLERGY NEC Last Documented On 06/19/2009 9:49PM By STEVEN FLORES PA-C ; [facility] [place] 180 MG OR TABS 06/09/2009 - 12/06/2009 Provide r: STEVEN FLORES PA-C Diagnosis: Last Documented On 06/09/2009 12:56PM By STEVEN FLORES PA-C ; [facility] oxyBUTYnin Chloride 5 MG OR TABS 06/03/2009 - 07/03/20 Provider: Diagnosis: Last Documented On 07/05/2009 11:25AM By Jonny Lamb ; [facility] Advair Diskus 250-50 MCG[facility] 05/13/2009 - 06/10/2009 Provider: TANNER GRIFFITH PA-C Diagnosis: COUGH Last Documented On 05/13/2009 9:31AM By TANNER MYERS ; [facility] Ventolin HFA 108 (90 Base) MCG/ACT IN [facility] 05/13/2009 - 06/12/2009 Provider: TANNER GRIFFITH PA-C Diagnosis: COUGH 2 puffs q 4-6 hours prn. Last Documented On 05/13/2009 9:31AM By TANNER MYERS ; [facility] Singulair 10 MG OR TABS 05/05/2009 - 05/19/2009 Provider: STEVEN Banegas Diagnosis: PNEUMONIA, ORGAN ISM NOS Last Documented On 05/05/2009 4:06PM By STEVEN FLORES PA-C ; [facility] Advair Diskus 100-50 MCG/DOSE [facility] 04/20/2009 - 05/18/2009 Provider: STEVEN Banegas Diagnosis: BRONCHITIS NOS one puff twice a day Last Documented On 04/20/2009 9:43AM By STEVEN FLORES PA-C ; [facility] predniSONE 20 MG OR TABS 04/20/2009 - 05/02/2009 Provi blu: STEVEN FLORES PA-C Diagnosis: BRONCHITIS NOS 3 x 3 d, 2 x 3d, 1x3d, 1/2 x 3d then d/c Last Documented On 04/20/2009 9:43AM By STEVEN FLORES PA-C ; [facility] Tussionex Pennkinetic ER 10-8 MG/5ML OR LQCR 04/20/2009 - 05/20/2009 Provider: STEVEN Banegas Diagnosis: BRONCHITIS NOS one tsp twice a day PRN Last Documented On 04/20/2009 9:43AM By STEVEN FLORES PA-C ; [facility] Proventil HFA 108 (90 Base) MCG/ACT IN AERS 04/10/2009 - 05/10/2009 Provider: STEVEN [place] Diagnosis: ACUTE BRONCHITIS 2 puffs every 4-6 hours PRN Last Documented On 04/10/2009 11:51AM By STEVEN FLORES PA-C ; [facility] Tessalon Perles 100 MG OR CAPS 04/10/2009 - 05/10/2009 Provider: STEVEN Banegas Diagnosis: ACUTE BRONCHITIS 1-2 tabs tid PRN Last Documented On 04/10/2009 11:51AM By STEVEN FLORES PA-C ; [facility] Zithromax Z-Kash 250 MG OR TABS 04/10/2009 - 04/15/2009 Provider: STEVEN Banegas Diagnosis: ACUTE BRONCHITIS as directed Last Documented On 04/10/2009 11:51AM By STEVEN FLORES PA-C ; [facility] Simvastatin 20 MG OR TABS 12/30/2008 - 06/28/2009 Prov ider: Diagnosis: Last Documented On 02/09/2009 2:46PM By RACQUEL JIMENEZ ; [facility] Medications Administered Includes: Administered Medications from this encounter No Administered Medications Recorded Vital Signs Includes: Vital Signs from this encounter Vital Name 11/21/2022 03:29P Blood Pressure Sitting (mmHg) 112/60 Height (in) 66.5 Last Documented: On 11/21/2022 3:33PM ; [facility] Results Includes: Results discussed during this encounter No Results Recorded For Specified Dates History of Present Illness Includes: History of Present Illness from this encounter HPI BRIGIDA PRESCOTT is a 72 year old female. - Allergy list reviewed - Medication list reviewed Brigida follows up for her right knee gelsyn injection. This is the third and final injection of the series. She states that to date she has not noticed any benefit yet. She does describe not only the knee pain but pain that radiates the lateral aspect of the right lower leg as well as some pain that radiates from the left buttock down the posterior aspect of the left thigh toward the bend of the knee that is worse with resisted hip extension such as stepping up on the running board to get into her vehicle. She denies any new injury or trauma. She denies any groin or thigh discomfort of the left leg Social History Description Last Updated Tobacco non-user 06/14/2022 Last Documented On 3 3:29PM ; [facility] Personal history plans to retire 10/05 0 05/27/2017 Last Documented On 3 3:29PM ; [facility] Alcohol use: 2 drinks or less per day RA RELY 05/27/2017 Last Documented On 3 3:29PM ; [facility] Education history 05/27/2017 Last Documented On 3 3:29PM ; [facility] In monogamous relationship 05/27/2017 Last Documented On 3 3:29PM ; [facility] Marital history 05/27/2017 Last Documented On 3 3:29PM ; [facility] Non-smoker 05/27/2017 Last Documented On 3 3:29PM ; [facility] Sexually active 05/27/2017 Last Documented On 3 3:29PM ; [facility] Smoking status : Never smoker 05/27/2017 Last Documented On 3 3:29PM ; [facility] Social history unchanged 05/27/2017 Last Documented On 3 3:29PM ; [facility] Currently 05/02/2016 Last Documented On 3 3:29PM ; [facility] Educational level 05/02/2016 Last Documented On 3 3:29PM ; [facility] Not using alcohol 05/02/2016 Last Documented On 3 3:29PM ; [facility] Procedures and Surgical History Includes: Procedures from this encounter Procedures Code Diagnosis Performing Provider Service L ocation Service Date injection in a knee joint -Right Last Documented On 3 3:42PM ; [facility] use of tobacco assessment performed 1000F Last Documented On 3 3:33PM ; [facility] review of medications documented 1160F Last Documented On 3 3:44PM ; [facility] encouragement to exercise Last Documented On 3 3:44PM ; [facility] Informed consent obtained Ri s and benefits [...] Verbal consent obtained Last Documented On 3 3:40PM ; [facility] Sodium Hyaluronate, 5 mg for intra-articular injection The right knee was prepped in aseptic technique. I injected Gelsyn viscosupplementation into the right knee using a 22 gauge 1-/2 needle. Patient tolerated the procedure well and post procedure showed no signs of complications. Patient will be seen for the continuation of the series [id number] Last Documented On 3 3:40PM ; [facility] Surgical History Last Updated Surgical / procedural histor y SINUS SURGERY 11/02 ~THYROIDECTOMY 08/2015 benign nodules 05/02/2016 Last Documented On 3 3:29PM ; [facility] Surgical history unchanged 04/13/2015 Last Documented On 3 3:29PM ; [facility] History of total abdominal hysterectomy 04/12/2014 Last Documented On 3 3:29PM ; [facility] History of hysterectomy 06/15/19962012 Last Documented On 3 3:29PM ; [facility] Bilateral salpingo-oophorectomy 03/11/20 Last Documented On 3 3:29PM ; [facility] Breast Biopsy 03/07/2011 Last Documented On 3 3:29PM ; [facility] Stent 01/24/2010 Last Documented On 3 3:29PM ; [facility] History of cholecystectomy 01/24/2010 Last Documented On 3 3:29PM ; [facility] Medical History Includes: Medical History addressed during this encounter Description Last Updated Last mammogram date: 08/201605/27/2017 Last Documented On 3 3:29PM ; [facility] PRIMARY CARE PROVIDER : Dr. Cheryl Shukla ~ DR. GONZALEZ GI ~DR. VALERIO BREAST SPECIALIST 04/13/2015 Last Documented On 3 3:29PM ; [facility] A colonoscopy was performed 09/26/2009 Varinder HERNANDEZ AUG 2014 04/13/2015 Last Documented On 3 3:29PM ; [facility] History of a DEXA of the lateral lumbar spine was performed 06/11/2013 04/13/2015 Last Documented On 3 3:29PM ; [facility] History of Pap smear done 03/11/201203/21 Last Documented On 3 3:29PM ; [facility] History of screening mammogram was perfo rmed 05/06/2014 04/13/2015 Last Documented On 3 3:29PM ; [facility] GERD ~hyperilpidemia ~LISA/BS O DUB ENDOMETRIOSIS ~2004- Bladder ~ ~urge incont. ~status post anterior repair 04/12/2014 Last Documented On 3 3:29PM ; [facility] No recent change in medical history 03/21 Last Documented On 3 3:29PM ; [facility] Result: normal 04/12/2014 Last Documented On 3 3:29PM ; [facility] Result: normal 04/12/2014 Last Documented On 3 3:29PM ; [facility] Status post hysterectomy DUB 04/05/2013 Last Documented On 3 3:29PM ; [facility] History of menopause 04/05/2013 Last Documented On 3 3:29PM ; [facility] LMP: 06/15/1996 04/05/2013 Last Documented On 3 3:29PM ; [facility] Last pap smear date 03/11/2012 03/11/2012 Last Documented On 3 3:29PM ; [facility] History of benign essential hypertension 03/07/2011 Last Documented On 3 3:29PM ; [facility] Taking OTC medications including Mucinex 08/20/2010 Last Documented On 3 3:29PM ; [facility] History of chronic reflux esophagitis Last Documented On 3 3:29PM ; [facility] History of thyroid disorder THYROID NODU LES 01/25/2010 Last Documented On 3 3:29PM ; [facility] Para 2 01/25/2010 Last Documented On 3 3:29PM ; [facility] Vaginal delivery 01/25/2010 Last Documented On 3 3:29PM ; [facility] 2 living children 01/15/2010 Last Documented On 3 3:29PM ; [facility] A mammogram was performed 07/30/0701/15 Last Documented On 3 3:29PM ; [facility] 2 01/15/2010 Last Documented On 3 3:29PM ; [facility] Hypertension 01/15/2010 Last Documented On 3 3:29PM ; [facility] History of essential hypertension 2008 Last Documented On 3 3:29PM ; [facility] Taking medication - prescrip tion Patient currently taking Levaquin. Finished Zithromax. Tussionex helping. Proventil inhaler seems to help for a little while 04/20/2009 Last Documented On 3 3:29PM ; [facility] Taking OTC pain medication /fever. Using Tylenol 04/10/2009 Last Documented On 3 3:29PM ; [facility] History of hypertension 02/09/2009 Last Documented On 3 3:29PM ; [facility] Surgery GALBLADDER 1978 ~BLADDER 02/20 Last Documented On 3 3:29PM ; [facility] Family History Includes: Family History addressed during this encounter Description Last Updated Maternal history of diabetes mellitus Mo ther 05/02/2016 Last Documented On 3 3:29PM ; [facility] Family history of diabetes mellitus Moth er 04/13/2015 Last Documented On 3 3:29PM ; [facility] Family history of hypercholesterolemia F ather 04/13/2015 Last Documented On 3 3:29PM ; [facility] Family history of hypertension Patient, Father 04/13/2015 Last Documented On 3 3:29PM ; [facility] Family history unchanged 04/13/2015 Last Documented On 3 3:29PM ; [facility] Spouse name: DARLING 03/07/2011 Last Documented On 3 3:29PM ; [facility] First child named 01/25/2010 Last Documented On 3 3:29PM ; [facility] No family history of malignant female br east neoplasm 01/25/2010 Last Documented On 3 3:29PM ; [facility] No family history of malignant neoplasm of the large intestine 01/25/2010 Last Documented On 3 3:29PM ; [facility] No family history of malignant neoplasm of the ovary 01/25/2010 Last Documented On 3 3:29PM ; [facility] No family history of uterine cancer 05/2010 Last Documented On 3 3:29PM ; [facility] Second child named 01/25/2010 Last Documented On 3 3:29PM ; [facility] Family history of Diabetes (m) 0 Last Documented On 3 3:29PM ; [facility] Family medical history of high blood pre ssure &hyperlipidemia(F) 01/15/2010 Last Documented On 3 3:29PM ; [facility] Brother BLOCKED ARTERIES 2008 Last Documented On 3 3:29PM ; [facility] Brother HAS MS 02/09/2009 Last Documented On 3 3:29PM ; [facility] Father 02/09/2009 Last Documented On 3 3:29PM ; [facility] Heart disease 02/09/2009 Last Documented On 3 3:29PM ; [facility] Mother 02/09/2009 Last Documented On 3 3:29PM ; [facility] Review of Systems Includes: Review of Systems [...] ctive Last Documented On 3 3:29PM ; [facility] Fish Oil Allergy THROAT, MOUTH AND EARS ITCH 04/12/2014 Active Last Documented On 3 3:29PM ; [facility] CeleBREX Allergy 02/09/2009 Active Last Documented On 3 3:29PM ; [facility] Encounters Encounter Provider Location Date Check-In Time Check-Out Time Diagnosis FOLLOW UP SHAQ Banegas [facility] 11/21/19 23 3:24PM 3:38PM Osteoarthritis Localized Primary Knee Right Insurance Includes: Active Insurance Policies Plan Name Member ID Group # Subscriber Relationship Effect grant Dates 1 - [facility]/MEDICARE ADV/[employer] [id number] BRIGIDA lieberman Clinical Notes Includes: Clinical Notes from this encounter * Progress note Date Encounter Last Documented by 11/21/2022 FOLLOW UP Last documented on 11/21/2022; 3:45 PM, SHAQ Banegas; [facility] Active Problems & Conditions - 285.9 - Anemia - 610.2 - Breast Fibroadenosis Chronic - pt s/p removal and all mamm[facility] [facility] - 562.10 - Colonic Diverticulosis - 246.2 - CYST OF THYROID - pt to see ent and wrap yarn sorter - 530.81 - Esophageal Reflux - I10 - Essential Hypertension Benign - V88.01 - History of Hysterectomy - V15.29 - History of Prior Surgery: Stent - 272.4 - Hyperlipidemia - M25.561 - Joint Pain in the Right Knee on the Inner Side - M17.11 - Osteoarthritis Localized Primary Knee Right - 788.31 - URGE INCONTINENCE Chief Complaint The Chief Complaint is: PRESENTS FOR RT KNEE, GELSYN-3 INJ #3 OF 3. Reason For Visit Visit for: Right Knee Pain. History of Present Illness BRIGIDA PRESCOTT is a 72 year old female. - Allergy list reviewed - Medication list reviewed Brigida follows up for her right knee gelsyn injection. This is the third and final injection of the series. She states that to date she has not noticed any benefit yet. She does describe not only the knee pain but pain that radiates the lateral aspect of the right lower leg as well as some pain that radiates from the left buttock down the posterior aspect of the left thigh toward the bend of the knee that is worse with resisted hip extension such as stepping up on the running board to get into her vehicle. She denies any new injury or trauma. She denies any groin or thigh discomfort of the left leg Current Medication - Amiodarone HCl 200 MG [...] for a little while, medication for pain [id number] /fever. Using Tylenol, and nptk-ljy-[id number] medications including Mucinex. Tests: A mammogram was [...] Family History Father Mother Spouse name: DARLING Daleyer HAS MS Brother BLOCKED ARTERIES First child [...] Maternal: Diabetes mellitus Mother Review Of Systems Systemic: No fever and no chills. Hematologic: No easy bleeding and no tendency for easy bruising. Neurological: No ataxia. No sensory disturbances. Psychological: No fear of falling. Past Medical: No fall in the past 6 months. Physical Findings - Vitals taken 11/21/2022 03:29 pm BP-Sitting 112/60 mmHg Height 66.5 in General Appearance: - Well developed. - In no acute distress. Musculoskeletal System: Knee: Right Knee: - Examined. - Patella demonstrated crepitus. - No localized swelling. - No medial instability. - No lateral instability. Functional Exam: General/bilateral: - Ambulation did not require a cane. - Ambulation did not require a walker. - Ambulation did not require crutches. Neurological: - Oriented to time, place, and person. Gait And Stance: - Abnormal. - A right-sided antalgic gait was observed. Skin: - Skin: - No ecchymosis on the right knee. - No skin lesions. - No purpura was seen. Injury / Incision Site: - No scar. - Right knee showed no contusion. - Right knee showed no incision. - physical findings [Use for free text]. Assessment - [M17.11 - Unilateral primary osteoarthritis, right knee] Localized primary osteoarthritis of right knee Therapy - Encouragement to exercise. - Sodium Hyaluronate, 5 mg for intra-articular injection The right knee was prepped in aseptic technique. I injected Gelsyn viscosupplementation into the right knee using a 22 gauge needle. Patient tolerated the procedure well and post procedure showed no signs of complications. Patient will be seen for the continuation of the series. - Injection in a knee joint -Right. - Informed consent obtained Risks and benefits [...] with the injection/aspiration. Verbal consent obtained. Plan She was given her third and final injection of Gelsyn in the right knee. She was encouraged to follow-up with a phone call in the next four weeks to let us know how she is doing. She failed to get any relief from this, we may need to look further into her back due to the sciatica type symptoms she is feeling on her left leg as well as the pain that she has along the lateral aspect of the right lower leg. We talked about the potential for an L5 S1 issue stemming from the low back. She does have underlying arthritic findings that were noted on her right knee MRI with cartilage wear underneath the patella and on the tibial plateau. She did get some relief previously with steroid injections but not anything long-term. It is possible that her lower leg discomfort that she notices now is due to compensating for the pain that she has in her knee. Practice Management Use of tobacco assessment performed Review of medications documented. Health Reminders - Assess Blood Pressure satisfied 11/21/2022. - Assess Tobacco Use satisfied 11/21/2022. - Mammogram satisfied 05/06/2014.
--- OUTSIDE RECORDS SUMMARY | 2024-12-30 14:20 | XMS_ITS ---
Author Organization [facility] Address [address] [place] [address] Phone Care Team Providers Care Photoengraver Name Role Phone MILENA QUIROGA MD Unavailable [phone] MABEL MULLINS Primary Care Provider [phone] Problems Includes: Active, inactive, and resolved Problems All Visits Onset Date Resolved Date Provider Condition S tatus Osteoarthritis Localized Primary Knee Right 09/27/2022 SHAQ Banegas Active Last Documented On 2 10:05AM ; [facility] Joint Pain in the Right Knee on the Inner Side 06/14/2022 SHAQ Banegas Active Last Documented On 2 1:24PM ; [facility] Anemia 04/16/2015 MAY BRUNO RN JN Active Last Documented On 5 1:16PM ; [facility] Colonic Diverticulosis 04/16/2015 MAY BRUNO RN JN Active Last Documented On 5 1:15PM ; [facility] History of Prior Surgery: Stent 04/12/2014 LEAH BRUNO RN JN Active Last Documented On 4 8:44AM ; [facility] Note: Unchanged History of Hysterectomy 04/05/2013 MAY Landeros RN JN Active Last Documented On 3 1:24PM ; [facility] Note: Unchanged URGE INCONTINENCE 03/07/2011 CHRISSIE ROSADO M.D. Active Last Documented On 1 10:51AM ; [facility] Breast Fibroadenosis Chronic 01/25/2010 MAY M KIANA RN WHN P BC Active Last Documented On 04/13/2015 8:29AM ; [facility] Note: pt s/p removal and all mammogram p erformed by Dr. Clifford at breast cancer center CYST OF THYROID 01/25/2010 CHRISSIE RODRIGUEZ M.D. Active Last Documented On 01/25/2010 1:41PM ; [facility] Note: pt to see ent and teller [facility] Esophageal Reflux 01/15/2010 DARSHANA TORRES MD Active Last Documented On 0 10:38PM ; [facility] Hyperlipidemia 02/09/2009 DARSHANA TORRES MD Active Last Documented On 0 10:38PM ; [facility] Essential Hypertension Benign 02/09/2009 DARSHANA TORRES MD Active Last Documented On 0 10:38PM ; [facility] Plan of Treatment Findings Encounter Date She was given her third and final [...] the pain that she has in her knee FOLLOW UP with SHAQ Banegas 11/21/2022 Last Documented On 3 3:45PM ; [facility] I provided her with the righ t knee Gelsyn injection. This was the second injection in the series. She will follow up next week for the third and final injection in the series FOLLOW UP with SHAQ Banegas 11/14/2022 Last Documented On 3 3:16PM ; [facility] I provided her with the righ t knee Gelsyn injection. This was the first injection in the series. She will follow up next week for the second injection in the series FOLLOW UP with SHAQ Banegas 11/07/2022 Last Documented On 3 3:41PM ; [facility] We did provide her with a ri ght knee steroid injection today. She tolerated that without difficulty. She would need to wait at least three months before repeat steroid injection. If she fails to get three months of relief from the right knee steroid injection, we discussed moving forward with a series of visco. If she is interested in that, she will call our office to let us know. That would require insurance authorization. We did discuss this would take some time to be beneficial and is typically quite a bit slower when compared to relief gain from a steroid injection. She understands FOLLOW UP with SHAQ Banegas 09/27/2022 Last Documented On 2 10:08AM ; [facility] She was provided with a righ t knee steroid injection today. She tolerated that without difficulty. She need to wait at least three months before repeat injection. She can follow up with me on an as-needed basis FOLLOW UP with SHAQ Banegas 06/27/2022 Last Documented On 2 2:59PM ; [facility] I think that she likely has sustained a hamstring and a gastroc strain that worsened when she tried to forcefully close the end of her recliner. We've encouraged use of heat application to keep her tissues loose prior to activity. She can ice the backside of her knee with it in extension after activity. I would like to obtain an MRI the right knee without contrast to evaluate for possible underlying posterior horn medial meniscus tear. She can continue with a compression wrap. We will also start her on a 10 day taper of prednisone secondary to her use of blood thinners ORTHO ESTABLISHED PATIENT with SHAQ Banegas 06/14/2022 Last Documented On 2 1:35PM ; [facility] Ordered Clinical summary pro vided to patient HISTORICAL ARCHEOLOGIST EXAM with MAY BRUNO RN JN 05/27/2017 Last Documented On 7 9:43AM ; [facility] Ordered Clinical summary pro vided to patient ANNUAL ORCHARD PRUNER EXAM with MAY BRUNO RN JN 05/02/2016 Last Documented On 6 3:14PM ; [facility] Ordered Clinical summary pro vided to patient ANNUAL ORCHARD PRUNER EXAM with MAY BRUNO RN JN 04/13/2015 Last Documented On 5 8:37AM ; [facility] Ordered Clinical summary pro vided to patient ANNUAL ORCHARD PRUNER EXAM with MAY BRUNO RN JN 04/12/2014 Last Documented On 4 8:44AM ; [facility] Ordered Clinical summary pro vided to patient NEW HISTORICAL ARCHEOLOGIST EXAM with MAY BRUNO RN JN 04/05/2013 Last Documented On 3 1:38PM ; [facility] Ordered follow-up visit as n eeded with an office visit.. Instructed patient to start sudafed PE and arbinoxa as an antihistamine. If sx are not clearing in the next month consider having patient see ENT SICK VISIT with STEVEN FLORES PA-C 03/07/2011 Last Documented On 1 3:17PM ; [facility] Ordered follow-up visit as n eeded with an office visit.. Plan on having patient elevate, ice, start ibuprofen, and wear straight leg brace. Reviewed with patient that her xray showed possible tibial plateau fracture. Patient will be referred for MRI L knee to jimmy and will be referred to Dr. Kirkland. Patient given order for crutches and knee brace and did not want pain medication at this time PROBLEM VISIT with STEVEN FLORES PA-C 12/10/2010 Last Documented On 1 2:54PM ; [facility] Ordered follow-up visit as n eeded with an office visit.. Patient to return next week for fasting bloodwork SICK VISIT with STEVEN FLORES PA-C 08/20/2010 Last Documented On 0 5:52PM ; [facility] Ordered follow-up visit as n eeded with an office visit. SICK VISIT with STEVEN FLORES PA-C 04/10/2009 Last Documented On 9 11:51AM ; [facility] Referrals To Diagnosis Materials Tech Note: Patient needs to be se en MARIE. Has chronic cough and many treatments without success Last Documented On 9 8:31AM ; [facility] [employer] [address] [address] - ALLERGIC RHINITIS NOS Note: DR GERBER Last Documented On 9 3:55PM ; [facility] [employer] [facility] Tedri nology - [address] [place] [address] - Note: Patient needs thyroid nodule biopsy (I did not have good luck with this last time at [facility] so I prefer other facility) Last Documented On 9 11:16AM ; [facility] Other Note: U/S GUIDED BIOPSY OF T HE THYROID NODULE Last Documented On 9 10:32PM ; [facility] Orthopedic WINDY KIRKLAND MD SPRAIN OF KNE E & LEG NOS Note: Dr. Kirkland please Last Documented On 1 12:27PM ; [facility] Instructions to patient Intervention and counseling on cessation of tobacco use Last Documented On 3 3:14PM ; [facility] Intervention and counseling on cessation of tobacco use Last Documented On 3 3:29PM ; [facility] Intervention and counseling on cessation of tobacco use Last Documented On 2 9:56AM ; [facility] Intervention and counseling on cessation of tobacco use Last Documented On 2 2:50PM ; [facility] Instructed to call if excess grant bleeding or abdominal/pelvic pain Last Documented On 7 9:26AM ; [facility] Instructions For Patient: Mo nthly Self Breast Exam Last Documented On 7 9:26AM ; [facility] Recommend diet and exercise at least 30 min three times per week Last Documented On 7 9:26AM ; [facility] Instructions for patient : B reast Self Exam discussed and technique reviewed Last Documented On 6 2:56PM ; [facility] Instructed to call if excess grant bleeding or abdominal/pelvic pain Last Documented On 6 2:56PM ; [facility] Recommend diet and exercise at least 30 min three times per week Last Documented On 6 2:56PM ; [facility] Instructions for patient : B reast Self Exam discussed and technique reviewed Last Documented On 5 8:15AM ; [facility] Instructed to call if excess grant bleeding or abdominal/pelvic pain Last Documented On 5 8:15AM ; [facility] Recommend diet and exercise at least 30 min three times per week Last Documented On 5 8:15AM ; [facility] Recommend preventative vacci nation including but not limited to influenza/flu vaccine, DTP, Rubella, Hepatitis B vaccination series Last Documented On 5 8:15AM ; [facility] Instructions for patient : B reast Self Exam discussed and technique reviewed Last Documented On 4 8:18AM ; [facility] Instructed to call if excess grant bleeding or abdominal/pelvic pain Last Documented On 4 8:18AM ; [facility] Recommend diet and exercise at least 30 min three times per week Last Documented On 4 8:18AM ; [facility] Recommend preventative vacci nation including but not limited to influenza/flu vaccine, DTP, Rubella, Hepatitis B vaccination series Last Documented On 4 8:18AM ; [facility] Instructions for patient : B reast Self Exam discussed and technique reviewed Last Documented On 3 12:56PM ; [facility] Instructed to call if excess grant bleeding or abdominal/pelvic pain Last Documented On 3 12:56PM ; [facility] Instructions For Patient: Mo nthly Self Breast Exam Last Documented On 3 12:56PM ; [facility] Recommend diet and exercise at least 30 min three times per week Last Documented On 3 12:56PM ; [facility] Recommend CBC, TSH, fasting glucose, fasting lipid panel if patient aged 25 or older Last Documented On 3 12:56PM ; [facility] Recommend preventative vacci nation including but not limited to influenza/flu vaccine, DTP, Rubella, Hepatitis B vaccination series Last Documented On 3 12:56PM ; [facility] Instructions for patient : B reast Self Exam discussed. Reviewed monthly self breast examination and technique Last Documented On 2 10:45AM ; [facility] Recommend diet and exercise at least 30 min three times per week Last Documented On 2 10:45AM ; [facility] Recommend preventative vacci nation including but not limited to influenza/flu vaccine, DTP, Rubella, Hepatitis B vaccination series Last Documented On 2 10:45AM ; [facility] Recommend annual pap smear e xamination or every three year if high risk hpv negative and 3 consecutive normal pap examination during preceding three years Last Documented On 2 10:45AM ; [facility] Recommend TSH, fasting gluco se, fasting lipid panel, CBC, BMP Last Documented On 2 10:45AM ; [facility] Recommend Calcium supplement ation and weight bearing exercise Last Documented On 2 10:45AM ; [facility] Recommended Bone Density Last Documented On 2 10:45AM ; [facility] Recommended Colonoscopy Pt r eferred to Gastroenetrologist. Pt understands that recommendation for colonoscopy is every 10 years after the age of 50 or age of 40 if first degree relative with history of colon cancer. Patient understands that failure to follow recommendation can lead to delayed diagnosis of colon cancer and patient accepts all responsibility regarding scheduling and follow up with seafood clerk Last Documented On 2 10:45AM ; [facility] Instructions for patient : B reast Self Exam discussed. Reviewed monthly self breast examination and technique Last Documented On 10:33AM ; [facility] Recommend diet and exercise at least 30 min three times per week Last Documented On 1 10:33AM ; [facility] Discussed Gardasil vaccinati on and recommend vaccination for HPV prevention. Handout given. Patient undertsands sexual transmission of high-risk HPV and association with abnormal pap smear and cervical cancer. recommend to decrease high risk behaviors such as: number of sexual partners, smoking, and contraceptive use Last Documented On 10:33AM ; [facility] Recommend preventative vacci nation including but not limited to influenza/flu vaccine, DTP, Rubella, Hepatitis B vaccination series Last Documented On 10:33AM ; [facility] Recommend annual pap smear e xamination or every three year if high risk hpv negative and 3 consecutive normal pap examination during preceding three years Last Documented On 05/19/201 1 10:33AM ; [facility] Recommend TSH, fasting gluco se, fasting lipid panel, CBC, BMP Last Documented On 1 10:33AM ; [facility] Recommend Calcium supplement ation and weight bearing exercise Last Documented On 1 10:33AM ; [facility] Recommended Bone Density Last Documented On 1 10:33AM ; [facility] Recommended Colonoscopy Pt r eferred to Gastroenetrologist. Pt understands that recommendation for colonoscopy is every 10 years after the age of 50 or age of 40 if first degree relative with history of colon cancer. Patient understands that failure to follow recommendation can lead to delayed diagnosis of colon cancer and patient accepts all responsibility regarding scheduling and follow up with seafood clerk Last Documented On 1 10:33AM ; [facility] Instructions for patient : B reast Self Exam discussed. Reviewed monthly self breast examination and technique Last Documented On 0 1:26PM ; [facility] Recommend diet and exercise at least 30 min three times per week Last Documented On 0 1:26PM ; [facility] Discussed Gardasil vaccinati on and recommend vaccination for HPV prevention. Handout given. Patient undertsands sexual transmission of high-risk HPV and association with abnormal pap smear and cervical cancer. recommend to decrease high risk behaviors such as: number of sexual partners, smoking, and contraceptive use Last Documented On 0 1:26PM ; [facility] Recommend preventative vacci nation including but not limited to influenza/flu vaccine, DTP, Rubella, Hepatitis B vaccination series Last Documented On 0 1:26PM ; [facility] Recommend annual pap smear e xamination or every three year if high risk hpv negative and 3 consecutive normal pap examination during preceding three years Last Documented On 0 1:26PM ; [facility] Recommend TSH, fasting gluco se, fasting lipid panel, CBC, BMP Last Documented On 0 1:26PM ; [facility] Recommend Calcium supplement ation and weight bearing exercise Last Documented On 0 1:26PM ; [facility] Recommended Bone Density Last Documented On 0 1:26PM ; [facility] Recommended Colonoscopy Pt r eferred to Gastroenetrologist. Pt understands that recommendation for colonoscopy is every 10 years after the age of 50 or age of 40 if first degree relative with history of colon cancer. Patient understands that failure to follow recommendation can lead to delayed diagnosis of colon cancer and patient accepts all responsibility regarding scheduling and follow up with seafood clerk Last Documented On 0 1:26PM ; [facility] Education and Decision Aids were provided during visit for: Patient Education: Daily yobany cium and vitamin D Last Documented On 7 9:26AM ; [facility] Patient Education: Daily yobany cium and vitamin D Last Documented On 6 2:56PM ; [facility] Patient Education: Daily yobany cium and vitamin D Last Documented On 5 8:15AM ; [facility] Patient Education: Daily yobany cium and vitamin D Last Documented On 4 8:18AM ; [facility] Patient Education: Daily yobany cium and vitamin D Last Documented On 3 12:56PM ; [facility] Patient Education: weight be aring exercise Last Documented On 3 12:56PM ; [facility] Patient will maintain adequa te intake of dietary Ca+ and Mg+ Last Documented On 3 12:56PM ; [facility] Assessments Includes: Assessments for all patient encounters Findings Encounter Date Localized primary osteoarthr itis of right knee FOLLOW UP with SHAQ Banegas 11/21/2022 Last Documented On 3 3:45PM ; [facility] Localized primary osteoarthr itis of right knee FOLLOW UP with SHAQ Banegas 11/14/2022 Last Documented On 3 3:16PM ; [facility] Localized primary osteoarthr itis of right knee FOLLOW UP with SHAQ Banegas 11/07/2022 Last Documented On 3 3:41PM ; [facility] Localized primary osteoarthr itis of right knee FOLLOW UP with SHAQ Banegas 09/27/2022 Last Documented On 2 10:08AM ; [facility] Assessment of medial right k nee joint pain FOLLOW UP with SHAQ Banegas 06/27/2022 Last Documented On 2 2:59PM ; [facility] Assessment of medial right k nee joint pain ORTHO ESTABLISHED PATIENT with SHAQ Banegas 06/14/2022 Last Documented On 2 1:35PM ; [facility] NORMAL FEMALE EXAM HISTORICAL ARCHEOLOGIST EXAM with MAY Adrian [facility] 05/27/2017 Last Documented On 7 9:43AM ; [facility] NORMAL FEMALE EXAM ANNUAL ORCHARD PRUNER EXAM with MAY BRUNO RN [facility] 05/02/2016 Last Documented On 6 3:14PM ; [facility] Benign essential hypertension ANNUAL ORCHARD PRUNER EXAM with MAY BRUNO RN [facility] 04/13/2015 Last Documented On 5 8:37AM ; [facility] Chronic fibroadenosis of the breast CHUCK AL ORCHARD PRUNER EXAM with MAY BRUNO RN [facility] 04/13/2015 Last Documented On 5 8:37AM ; [facility] Routine gynecological exam ANNUAL ORCHARD PRUNER EXAM with MAY BRUNO RN [facility] 04/13/2015 Last Documented On 5 8:37AM ; [facility] Routine gynecological exam ANNUAL ORCHARD PRUNER EXAM with MAY BRUNO RN [facility] 04/12/2014 Last Documented On 4 8:44AM ; [facility] Screening Malig. Neoplasm Rectum ANNUAL ORCHARD PRUNER EXAM with MAY BRUNO RN [facility] 04/12/2014 Last Documented On 4 8:44AM ; [facility] NORMAL FEMALE EXAM NEW HISTORICAL ARCHEOLOGIST EXAM with MAY CALLAHAN RN [facility] 04/05/2013 Last Documented On 3 1:38PM ; [facility] Routine gynecological exam NEW HISTORICAL ARCHEOLOGIST EXAM with JULIANNE BRUNO RN [facility] 04/05/2013 Last Documented On 3 1:38PM ; [facility] Screening Malig. Neoplasm Rectum NEW HISTORICAL ARCHEOLOGIST EXAM with MAY BRUNO RN [facility] 04/05/2013 Last Documented On 3 1:38PM ; [facility] Vaginal candidiasis NEW HISTORICAL ARCHEOLOGIST EXAM with MAY PARKS RN [facility] 04/05/2013 Last Documented On 3 1:38PM ; [facility] Asymptomatic postmenopausal status ANNUA L ORCHARD PRUNER EXAM with CHRISSIE ROSADO M.D. 03/11/2012 Last Documented On 2 10:59AM ; [facility] History of breast neoplasm malignant KHUSHBOO UAL ORCHARD PRUNER EXAM with CHRISSIE ROSADO M.D. 03/11/2012 Last Documented On 2 10:59AM ; [facility] MAMMOGRAM SCREENING ANNUAL ORCHARD PRUNER EXAM with CHRISSIE ROSADO M.D. 03/11/2012 Last Documented On 2 10:59AM ; [facility] NORMAL FEMALE EXAM ANNUAL ORCHARD PRUNER EXAM with CHRISSIE ROSADO M.D. 03/11/2012 Last Documented On 2 10:59AM ; [facility] Screening Malig. Neoplasm Rectum ANNUAL ORCHARD PRUNER EXAM with CHRISSIE ROSADO M.D. 03/11/2012 Last Documented On 2 10:59AM ; [facility] Asymptomatic postmenopausal status ANNUA L ORCHARD PRUNER EXAM with CHRISSIE ROSADO M.D. 03/07/2011 Last Documented On 1 10:57AM ; [facility] MAMMOGRAM SCREENING ANNUAL ORCHARD PRUNER EXAM with CHRISSIE ROSADO M.D. 03/07/2011 Last Documented On 1 10:57AM ; [facility] NORMAL FEMALE EXAM ANNUAL ORCHARD PRUNER EXAM with CHRISSIE ROSADO M.D. 03/07/2011 Last Documented On 1 10:57AM ; [facility] Screening Malig. Neoplasm Rectum ANNUAL ORCHARD PRUNER EXAM with CHRISSIE ROSADO M.D. 03/07/2011 Last Documented On 1 10:57AM ; [facility] Allergic rhinitis SICK VISIT with STEVEN Elkins-Makenzie 03/07/2011 Last Documented On 1 3:17PM ; [facility] Eustachian tube dysfunction SICK VISIT with NGOC FLORES PA-C 03/07/2011 Last Documented On 1 3:17PM ; [facility] Closed fracture of the tibia ? PROBLEM VISIT wit h STEVEN FLORES PA-C 12/10/2010 Last Documented On 1 2:54PM ; [facility] Knee sprain PROBLEM VISIT with STEVEN FLORES PA-C 12/10/2010 Last Documented On 1 2:54PM ; [facility] Benign essential hypertension CHECK UP with CHIP TORRES MD 09/19/2010 Last Documented On 0 10:42PM ; [facility] Esophageal reflux CHECK UP with DARSHANA KAPOOR MD 09/19/2010 Last Documented On 0 10:42PM ; [facility] Hyperlipidemia CHECK UP with DARSHANA TORRES MD 09/19/2010 Last Documented On 0 10:42PM ; [facility] Nontoxic nodular goiter CHECK UP with DARSHANA COOPER MD 09/19/2010 Last Documented On 0 10:42PM ; [facility] Bronchitis SICK VISIT with STEVEN Banegas 08/20/2010 Last Documented On 0 5:52PM ; [facility] Herpes simplex type I mouth SICK VISIT with NGOC FLORES PA-C 08/20/2010 Last Documented On 0 5:52PM ; [facility] Thyroid disorder nodules, benign SICK VISIT with STEVEN FLORES PA-C 08/20/2010 Last Documented On 0 5:52PM ; [facility] Asymptomatic postmenopausal status HISTORICAL ARCHEOLOGIST EXAM with CHRISSIE ROSADO M.D. 01/25/2010 Last Documented On 0 2:47PM ; [facility] MAMMOGRAM SCREENING HISTORICAL ARCHEOLOGIST EXAM with CHRISSIE GRAHAM M.D. 01/25/2010 Last Documented On 0 2:47PM ; [facility] NORMAL FEMALE EXAM HISTORICAL ARCHEOLOGIST EXAM with CHRISSIE MUNGUIA M.D. 01/25/2010 Last Documented On 0 2:47PM ; [facility] SCREENING FOR CONDITION NEC HISTORICAL ARCHEOLOGIST EXAM with TRES ROSADO M.D. 01/25/2010 Last Documented On 0 2:47PM ; [facility] Screening Malig. Neoplasm Rectum HISTORICAL ARCHEOLOGIST EXAM with Cj ROSADO M.D. 01/25/2010 Last Documented On 0 2:47PM ; [facility] Assessment of cough RECHECK with STEVEN Dillon 09/07/2009 Last Documented On 9 4:45PM ; [facility] Dysphagia RECHECK with STEVEN FLORES PA-C 1 11/07/2008 Last Documented On 9 4:45PM ; [facility] Goiter (diffuse nontoxic) RECHECK with STEVEN TOMPKINS-C 09/07/2009 Last Documented On 9 4:45PM ; [facility] Voice disturbance RECHECK with STEVEN TOMPKINS-C 09/07/2009 Last Documented On 9 4:45PM ; [facility] Allergic rhinitis MED CHECK with DARSHANA SYLVESTER MD 07/07/2009 Last Documented On 9 9:38AM ; [facility] Assessment of cough MED CHECK with DARSHANA WELLS MD 07/07/2009 Last Documented On 9 9:38AM ; [facility] Benign essential hypertension MED CHECK with VALERIA TORRES MD 07/07/2009 Last Documented On 9 9:38AM ; [facility] Chronic reflux esophagitis MED CHECK with DARSHANA TORRES MD 07/07/2009 Last Documented On 9 9:38AM ; [facility] Fatigue MED CHECK with DARSHANA Daniel MD 07/07/2009 Last Documented On 9 9:38AM ; [facility] Hyperlipidemia MED CHECK with DARSHANA Daniel MD 07/07/2009 Last Documented On 9 9:38AM ; [facility] Allergic drug reaction SICK VISIT with STEVEN TOMPKINS-C 06/19/2009 Last Documented On 9 9:49PM ; [facility] Benign essential hypertension SICK VISIT with MILTON TOMPKINS-C 06/19/2009 Last Documented On 9 9:49PM ; [facility] Assessment of cough RECHECK with TANNER TOMPKINS-C 05/12/2009 Last Documented On 9 9:32AM ; [facility] Pneumonia SICK VISIT with STEVEN TOMPKINS- C 05/05/2009 Last Documented On 9 4:06PM ; [facility] Bronchitis SICK VISIT with STEVEN TOMPKINS- C 04/20/2009 Last Documented On 9 9:51AM ; [facility] Acute bronchitis SICK VISIT with STEVEN Dillon 04/10/2009 Last Documented On 9 11:51AM ; [facility] Instructions Includes: Instructions for all patient encounters Instructions to patient Intervention and counseling on cessation of tobacco use Last Documented On 3 3:14PM ; [facility] Intervention and counseling on cessation of tobacco use Last Documented On 3 3:29PM ; [facility] Intervention and counseling on cessation of tobacco use Last Documented On 2 9:56AM ; [facility] Intervention and counseling on cessation of tobacco use Last Documented On 2 2:50PM ; [facility] Instructed to call if excess grant bleeding or abdominal/pelvic pain Last Documented On 7 9:26AM ; [facility] Instructions For Patient: Mo nthly Self Breast Exam Last Documented On 7 9:26AM ; [facility] Recommend diet and exercise at least 30 min three times per week Last Documented On 7 9:26AM ; [facility] Instructions for patient : B reast Self Exam discussed and technique reviewed Last Documented On 6 2:56PM ; [facility] Instructed to call if excess grant bleeding or abdominal/pelvic pain Last Documented On 6 2:56PM ; [facility] Recommend diet and exercise at least 30 min three times per week Last Documented On 6 2:56PM ; [facility] Instructions for patient : B reast Self Exam discussed and technique reviewed Last Documented On 5 8:15AM ; [facility] Instructed to call if excess grant bleeding or abdominal/pelvic pain Last Documented On 5 8:15AM ; [facility] Recommend diet and exercise at least 30 min three times per week Last Documented On 5 8:15AM ; [facility] Recommend preventative vacci nation including but not limited to influenza/flu vaccine, DTP, Rubella, Hepatitis B vaccination series Last Documented On 5 8:15AM ; [facility] Instructions for patient : B reast Self Exam discussed and technique reviewed Last Documented On 4 8:18AM ; [facility] Instructed to call if excess grant bleeding or abdominal/pelvic pain Last Documented On 4 8:18AM ; [facility] Recommend diet and exercise at least 30 min three times per week Last Documented On 4 8:18AM ; [facility] Recommend preventative vacci nation including but not limited to influenza/flu vaccine, DTP, Rubella, Hepatitis B vaccination series Last Documented On 4 8:18AM ; [facility] Instructions for patient : B reast Self Exam discussed and technique reviewed Last Documented On 3 12:56PM ; [facility] Instructed to call if excess grant bleeding or abdominal/pelvic pain Last Documented On 3 12:56PM ; [facility] Instructions For Patient: Mo nthly Self Breast Exam Last Documented On 3 12:56PM ; [facility] Recommend diet and exercise at least 30 min three times per week Last Documented On 3 12:56PM ; [facility] Recommend CBC, TSH, fasting glucose, fasting lipid panel if patient aged 25 or older Last Documented On 3 12:56PM ; [facility] Recommend preventative vacci nation including but not limited to influenza/flu vaccine, DTP, Rubella, Hepatitis B vaccination series Last Documented On 3 12:56PM ; [facility] Instructions for patient : B reast Self Exam discussed. Reviewed monthly self breast examination and technique Last Documented On 2 10:45AM ; [facility] Recommend diet and exercise at least 30 min three times per week Last Documented On 2 10:45AM ; [facility] Recommend preventative vacci nation including but not limited to influenza/flu vaccine, DTP, Rubella, Hepatitis B vaccination series Last Documented On 2 10:45AM ; [facility] Recommend annual pap smear e xamination or every three year if high risk hpv negative and 3 consecutive normal pap examination during preceding three years Last Documented On 2 10:45AM ; [facility] Recommend TSH, fasting gluco se, fasting lipid panel, CBC, BMP Last Documented On 2 10:45AM ; [facility] Recommend Calcium supplement ation and weight bearing exercise Last Documented On 2 10:45AM ; [facility] Recommended Bone Density Last Documented On 2 10:45AM ; [facility] Recommended Colonoscopy Pt r eferred to Gastroenetrologist. Pt understands that recommendation for colonoscopy is every 10 years after the age of 50 or age of 40 if first degree relative with history of colon cancer. Patient understands that failure to follow recommendation can lead to delayed diagnosis of colon cancer and patient accepts all responsibility regarding scheduling and follow up with seafood clerk Last Documented On 2 10:45AM ; [facility] Instructions for patient : B reast Self Exam discussed. Reviewed monthly self breast examination and technique Last Documented On 1 10:33AM ; [facility] Recommend diet and exercise at least 30 min three times per week Last Documented On 10:33AM ; [facility] Discussed Gardasil vaccinati on and recommend vaccination for HPV prevention. Handout given. Patient undertsands sexual transmission of high-risk HPV and association with abnormal pap smear and cervical cancer. recommend to decrease high risk behaviors such as: number of sexual partners, smoking, and contraceptive use Last Documented On 10:33AM ; [facility] Recommend preventative vacci nation including but not limited to influenza/flu vaccine, DTP, Rubella, Hepatitis B vaccination series Last Documented On 10:33AM ; [facility] Recommend annual pap smear e xamination or every three year if high risk hpv negative and 3 consecutive normal pap examination during preceding three years Last Documented On 10:33AM ; [facility] Recommend TSH, fasting gluco se, fasting lipid panel, CBC, BMP Last Documented On 1 10:33AM ; [facility] Recommend Calcium supplement ation and weight bearing exercise Last Documented On 1 10:33AM ; [facility] Recommended Bone Density Last Documented On 10:33AM ; [facility] Recommended Colonoscopy Pt r eferred to Gastroenetrologist. Pt understands that recommendation for colonoscopy is every 10 years after the age of 50 or age of 40 if first degree relative with history of colon cancer. Patient understands that failure to follow recommendation can lead to delayed diagnosis of colon cancer and patient accepts all responsibility regarding scheduling and follow up with seafood clerk Last Documented On 1 10:33AM ; [facility] Instructions for patient : B reast Self Exam discussed. Reviewed monthly self breast examination and technique Last Documented On 0 1:26PM ; [facility] Recommend diet and exercise at least 30 min three times per week Last Documented On 0 1:26PM ; [facility] Discussed Gardasil vaccinati on and recommend vaccination for HPV prevention. Handout given. Patient undertsands sexual transmission of high-risk HPV and association with abnormal pap smear and cervical cancer. recommend to decrease high risk behaviors such as: number of sexual partners, smoking, and contraceptive use Last Documented On 0 1:26PM ; [facility] Recommend preventative vacci nation including but not limited to influenza/flu vaccine, DTP, Rubella, Hepatitis B vaccination series Last Documented On 0 1:26PM ; [facility] Recommend annual pap smear e xamination or every three year if high risk hpv negative and 3 consecutive normal pap examination during preceding three years Last Documented On 0 1:26PM ; [facility] Recommend TSH, fasting gluco se, fasting lipid panel, CBC, BMP Last Documented On 0 1:26PM ; [facility] Recommend Calcium supplement ation and weight bearing exercise Last Documented On 0 1:26PM ; [facility] Recommended Bone Density Last Documented On 0 1:26PM ; [facility] Recommended Colonoscopy Pt r eferred to Gastroenetrologist. Pt understands that recommendation for colonoscopy is every 10 years after the age of 50 or age of 40 if first degree relative with history of colon cancer. Patient understands that failure to follow recommendation can lead to delayed diagnosis of colon cancer and patient accepts all responsibility regarding scheduling and follow up with seafood clerk Last Documented On 0 1:26PM ; [facility] Education and Decision Aids were provided during visit for: Patient Education: Daily yobany cium and vitamin D Last Documented On 7 9:26AM ; [facility] Patient Education: Daily yobany cium and vitamin D Last Documented On 6 2:56PM ; [facility] Patient Education: Daily yobany cium and vitamin D Last Documented On 5 8:15AM ; [facility] Patient Education: Daily yobany cium and vitamin D Last Documented On 4 8:18AM ; [facility] Patient Education: Daily yobany cium and vitamin D Last Documented On 3 12:56PM ; [facility] Patient Education: weight be aring exercise Last Documented On 3 12:56PM ; [facility] Patient will maintain adequa te intake of dietary Ca+ and Mg+ Last Documented On 3 12:56PM ; [facility] Medical Equipment - Implanted Devices Includes: Current and historical Devices No Medical Equipment Recorded Medications Includes: Current and historical Medications Current Medications (continue as prescribed) predniSONE 10 MG Oral Tablet 06/14/2022 Provider: SHAQ Banegas Diagnosis: as directed TAPER FOLLOWS , TAKE 4 TABS FOR 4 DAYS, 3 TABS FOR 3 DAYS, 2 TABS FOR 2 DAYS AND ONE TAB FOR ONE DAY Last Documented On 06/14/2022 1:28PM By Ira ALVA ; [facility] hydrALAZINE HCl 100 MG Oral Tablet 06/14/2022 Provid er: Diagnosis: Last Documented On 06/14/2022 1:15PM By MARCY BHAT LPN ; [facility] Gabapentin 100 MG Oral Capsule 06/14/2022 Provider: Diagnosis: Last Documented On 06/14/2022 1:15PM By MARCY BHAT LPN ; [facility] Valsartan-hydroCHLOROthiazide 320-25 MG Oral Tablet Provider: Diagnosis: Last Documented On 06/14/2022 1:12PM By MARCY BHAT LPN ; [facility] NexIUM 40 MG Oral Capsule Delayed Release 06/14/2022 Provider: Diagnosis: Last Documented On 06/14/2022 1:12PM By MARCY BHAT LPN ; [facility] Furosemide 40 MG Oral Tablet 06/14/2022 Provider: Diagnosis: Last Documented On 06/14/2022 1:11PM By MARCY BHAT LPN ; [facility] Amiodarone HCl 200 MG Oral Tablet 06/14/2022 Provide r: Diagnosis: Last Documented On 06/14/2022 1:10PM By MARCY BHAT LPN ; [facility] Xarelto 20 MG Oral Tablet 06/14/2022 Provider: Diagnosis: Last Documented On 06/14/2022 1:10PM By MARCY BHAT LPN ; [facility] Calcium 600 MG Tablet 05/02/2016 Provider: Diagnosis: Last Documented On 05/02/2016 2:58PM By CLAUDIA REYES MA ; [facility] Multi Vitamin Daily Tablet 05/02/2016 Provider: Diagnosis: Last Documented On 05/02/2016 2:58PM By CLAUDIA REYES MA ; [facility] Irbesartan 300 MG Tablet 05/02/2016 Provider: Diagnosis: Last Documented On 05/02/2016 2:58PM By CLAUDIA REYES MA ; [facility] Metoprolol Succinate ER 25 MG Tablet Extended Re lease 24 Hour 05/02/2016 Provider: Diagnosis: Last Documented On 05/02/2016 2:57PM By CLAUDIA REYES MA ; [facility] Levothyroxine Sodium 175 MCG Tablet 05/02/2016 Provi blu: Diagnosis: Last Documented On 05/02/2016 2:57PM By CLAUDIA REYES MA ; [facility] oxyBUTYnin Chloride 5 MG OR TABS 04/12/2014 Provider : Diagnosis: Last Documented On 04/12/2014 8:27AM By AIRAM SARAVIA ; [facility] Livalo 1 MG OR TABS 04/12/2014 Provider: Diagnosis: Last Documented On 04/12/2014 8:27AM By AIRAM SARAVIA ; [facility] Past Medications on file HydroCHLOROthiazide 25 MG Tablet 05/02/2016 - 06/14/20 22 Provider: Diagnosis: Last Documented On 06/14/2022 1:08PM By MARCY BHAT LPN ; [facility] Dexilant 60 MG Capsule Delayed Release 05/02/2016 - Provider: Diagnosis: Last Documented On 06/14/2022 1:08PM By MARCY BHAT LPN ; [facility] Micardis HCT 80-25 MG OR TABS 04/12/2014 - 05/02/2016 Provider: Diagnosis: Last Documented On 05/02/2016 2:55PM By CLAUDIA REYES MA ; [facility] Caltrate 600+D 600-800 MG-UNIT OR TABS 04/12/2014 - Provider: Diagnosis: Last Documented On 05/02/2016 2:58PM By CLAUDIA REYES MA ; [facility] NexIUM 40 MG OR PACK 04/12/2014 - 05/02/2016 Provider: Diagnosis: Last Documented On 05/02/2016 2:59PM By CLAUDIA REYES MA ; [facility] Terconazole 0.8% VA CREA 04/05/2013 - 04/14/2013 Provider: MAY BRUNO RN JN Diagnosis: CANDIDAL VULVOVA GINITIS 1 PAULA IN VAGINA EVERY NIGHT X 3 APPLY BID TO EXTERNAL AREA Last Documented On 3 1:26PM By MAY BRUNO JN- ; [facility] Diflucan 150 MG OR TABS 03/13/2012 - 03/14/2012 Provider: CHRISSIE ROSADO M.D. Diagnosis: CANDIDAL VULVOVA GINITIS 1 po x 1 day Last Documented On 2 12:45PM By DR. CHRISSIE ROSADO ; [facility] [id number] 1 MG OR CHEW 03/11/2012 - 04/12/2014 Provid er: Diagnosis: Last Documented On 04/12/2014 8:24AM By AIRAM SARAVIA ; [facility] Aciphex 20 MG OR TBEC 03/11/2012 - 04/12/2014 Provider : Diagnosis: Last Documented On 04/12/2014 8:24AM By AIRAM SARAVIA ; [facility] Lisinopril 10 MG OR TABS 03/11/2012 - 04/12/2014 Provi blu: Diagnosis: Last Documented On 04/12/2014 8:24AM By AIRAM SARAIVA ; [facility] oxyBUTYnin Chloride 5 MG OR TABS 07/01/2011 - 12/28/2011 Provider: DARSHANA KAPOOR MD Diagnosis: Last Documented On 1 12:11AM By DARSHANA TORRES MD ; [facility] Aciphex 20 MG OR TBEC 05/27/2011 - 08/25/2011 Provider : MERY KAUFFMAN PA-C Diagnosis: Last Documented On 1 4:37PM By MERY KAUFFMAN PA-C ; [facility] Lisinopril-hydroCHLOROthiazi de 20-12.5 MG TABS 04/29/2011 - 08/27/2011 Provider: STEVEN FLORES PA-C Diagnosis: 1 qd #30 Last Documented On 04/29/2011 12:46PM By STEVEN FLORES PA-C ; [facility] Carbinoxamine Maleate 4 MG OR TABS 03/29/2011 - 05/28/2011 Provider: DARSHANA TORRES MD Diagnosis: ALLERGIC RHINITI S NOS Last Documented On 03/29/2011 1:37PM By Rosy ALVA ; [facility] Oxytrol 3.9 MG/24HR TD PTTW 03/07/2011 - 05/06/2011 Provider: CHRISSIE JORDAN M.D. Diagnosis: URGE INCONTINENC E change patch q 72 hrs Last Documented On 1 10:56AM By DR. CHRISSIE ROSADO ; [facility] Carbinoxamine Maleate 4 MG OR TABS 03/07/2011 - 03/29/2011 Provider: STEVEN FLORES PA-C Diagnosis: ALLERGIC RHINITI S NOS Last Documented On 03/29/2011 1:37PM By Rosy ALVA ; [facility] NexIUM 40 MG OR CPDR 03/01/2011 - 03/31/2011 Provider: STEVEN FLORES PA-C Diagnosis: Last Documented On 03/01/2011 9:52AM By STEVEN FLORES PA-C ; [facility] Aciphex 20 MG OR TBEC 02/25/2011 - 05/27/2011 Provider : STEVEN FLORES PA-C Diagnosis: Last Documented On 1 4:37PM By MERY KAUFFMAN PA-C ; [facility] Lisinopril-hydroCHLOROthiazi de 20-12.5 MG TABS 12/26/2010 - 04/29/2011 Provider: STEVEN FLORES PA-C Diagnosis: 1 qd #30 Last Documented On 04/29/2011 12:46PM By STEVEN FLORES PA-C ; [facility] oxyBUTYnin Chloride 5 MG OR TABS 12/26/2010 - 07/01/2011 Provider: DARSHANA KAPOOR MD Diagnosis: Last Documented On 1 12:10AM By DARSHANA TORRES MD ; [facility] Aciphex 20 MG OR TBEC 11/26/2010 - 02/25/2011 Provider : STEVEN FLORES PA-C Diagnosis: Last Documented On 02/25/2011 10:28AM By STEVEN FLORES PA-C ; [facility] Flonase 50 MCG/ACT NA SUSP 11/15/2010 - 12/15/2010 Provider: JULES Banegas Diagnosis: ACUTE SINUSITIS NOS 2 sprays each nostril qd Last Documented On 11/15/2010 3:45PM By JULES MCCARTHY PA-C ; [facility] Zithromax Z-Kash 250 MG OR TABS 11/15/2010 - 11/20/2010 Provider: JULES Banegas Diagnosis: ACUTE SINUSITIS NOS Last Documented On 11/15/2010 3:12PM By JULES MCCARTHY PA-C ; [facility] Cefprozil 500 MG OR TABS 10/25/2010 - 11/04/2010 Provi blu: STEVEN FLORES PA-C Diagnosis: Last Documented On 10/25/2010 10:11AM By STEVEN FLORES PA-C ; [facility] Augmentin 875-125 MG OR TABS 09/11/2010 - 09/21/2010 P rovider: STEVEN FLORES PA-C Diagnosis: Last Documented On 09/11/2010 11:00AM By STEVEN FLORES PA-C ; [facility] Lisinopril-hydroCHLOROthiazi de 20-12.5 MG TABS 08/30/2010 - 12/26/2010 Provider: STEVEN FLORES PA-C Diagnosis: 1 qd #30 Last Documented On 12/26/2010 11:22AM By STEVEN FLORES PA-C ; [facility] Valtrex 1 GM OR TABS 08/20/2010 - 08/21/2010 Provider: STEVEN FLORES PA-C Diagnosis: HERPES SIMPLEX N OS 2 tabs po now, repeat in 12 hours Last Documented On 08/20/2010 5:51PM By STEVEN FLORES PA-C ; [facility] Levaquin 750 MG OR TABS 08/20/2010 - 08/25/2010 Provid er: STEVEN FLORES PA-C Diagnosis: BRONCHITIS NOS Last Documented On 08/20/2010 5:51PM By STEVEN FLORES PA-C ; [facility] Tussionex Pennkinetic ER 10-8 MG/5ML OR LQCR 08/20/2010 - 09/19/2010 Provider: STEVEN Banegas Diagnosis: BRONCHITIS NOS one tsp po BID PRN Last Documented On 08/20/2010 5:51PM By STEVEN FLORES PA-C ; [facility] Aciphex 20 MG OR TBEC 08/06/2010 - 11/26/2010 Provider : STEVEN FLORES PA-C Diagnosis: Last Documented On 11/26/2010 11:52AM By STEVEN FLORES PA-C ; [facility] oxyBUTYnin Chloride 5 MG OR TABS 06/27/2010 - 12/27/19 11 Provider: STEVEN FLORES PA-C Diagnosis: Last Documented On 12/26/2010 11:23AM By Rosy ALVA ; [facility] Simvastatin 20 MG OR TABS 06/27/2010 - 12/24/2010 Prov ider: STEVEN FLORES PA-C Diagnosis: Last Documented On 06/27/2010 12:04PM By STEVEN FLORES PA-C ; [facility] Aciphex 20 MG OR TBEC 05/04/2010 - 08/06/2010 Provider : STEVEN FLORES PA-C Diagnosis: Last Documented On 08/06/2010 11:43AM By STEVEN FLORES PA-C ; [facility] Lisinopril-hydroCHLOROthiazi de 20-12.5 MG TABS 04/25/2010 - 08/30/2010 Provider: STEVEN FLORES PA-C Diagnosis: 1 qd #30 Last Documented On 08/30/2010 8:54AM By STEVEN FLORES PA-C ; [facility] Aciphex 20 MG OR TBEC 02/06/2010 - 05/04/2010 Provider : STEVEN FLORES PA-C Diagnosis: Last Documented On 05/04/2010 10:17AM By STEVEN FLORES PA-C ; [facility] Simvastatin 20 MG OR TABS 01/02/2010 - 06/27/2010 Prov ider: STEVEN FLORES PA-C Diagnosis: Last Documented On 06/27/2010 12:04PM By STEVEN FLORES PA-C ; [facility] oxyBUTYnin Chloride 5 MG OR TABS 01/02/2010 - 06/27/20 10 Provider: STEVEN FLORES PA-C Diagnosis: Last Documented On 06/27/2010 12:04PM By STEVEN FLORES PA-C ; [facility] Lisinopril-hydroCHLOROthiazi de 20-12.5 MG TABS 12/29/2009 - 04/25/2010 Provider: TANNER MYERS PA-C Diagnosis: 1 qd #30 Last Documented On 04/25/2010 12:22PM By STEVEN FLORES PA-C ; [facility] Aciphex 20 MG OR TBEC 08/31/2009 - 02/06/2010 Provider : STEVEN FLORES PA-C Diagnosis: Last Documented On 02/06/2010 8:41AM By STEVEN FLORES PA-C ; [facility] Lisinopril-hydroCHLOROthiazi de 20-12.5 MG TABS 08/28/2009 - 12/29/2009 Provider: STEVEN FLORES PA-C Diagnosis: Last Documented On 12/29/2009 11:24AM By TANNER MYERS ; [facility] Clarinex 5 MG OR TABS 07/21/2009 - 07/21/2009 Provider : TANNER MYERS PA-C Diagnosis: ALLERGIC RHINITI S NOS Last Documented On 07/21/2009 1:28PM By TANNER MYERS ; [facility] Nasacort AQ 55 MCG/ACT NA AERS 07/21/2009 - 07/21/2009 Provider: TANNER GRIFFITH PA-C Diagnosis: ALLERGIC RHINITI S NOS 2 sprays q nare qd Last Documented On 07/21/2009 1:28PM By TANNER MYERS ; [facility] Flonase 50 MCG/ACT NA SUSP 07/21/2009 - 08/20/2009 Pro vider: TANNER MYERS PA-C Diagnosis: 2 sprays q nare qd Last Documented On 07/21/2009 1:27PM By TANNER MYERS ; [facility] [place] 180 MG OR TABS 07/21/2009 - 08/20/2009 Provide r: TANNER MYERS PA-C Diagnosis: Last Documented On 07/21/2009 1:27PM By TANNER MYERS ; [facility] Nasacort AQ 55 MCG/ACT NA AERS 07/07/2009 - 07/21/2009 Provider: DARSHANA TORRES MD Diagnosis: ALLERGIC RHINITI S NOS Last Documented On 07/21/2009 12:12PM By TANNER MYERS ; [facility] Clarinex 5 MG OR TABS 07/07/2009 - 07/21/2009 Provider: DARSHANA TORRES MD Diagnosis: ALLERGIC RHINITI S NOS Last Documented On 07/21/2009 12:12PM By TANNER MYERS ; [facility] Protonix 40 MG OR TBEC 07/07/2009 - 07/17/2009 Provider: DARSHANA KAPOOR MD Diagnosis: REFLUX ESOPHAGIT IS Last Documented On 9 9:04AM By DARSHANA TORRES MD ; [facility] Medrol (Kahs) 4 MG OR TABS 07/07/2009 - 07/13/2009 Prov ider: DARSHANA TORRES MD Diagnosis: COUGH as directed Last Documented On 9 9:04AM By DARSHANA TORRES MD ; [facility] Lisinopril-hydroCHLOROthiazi de 20-12.5 MG TABS 07/07/2009 - 08/06/2009 Provider: DARSHANA HEATON M.D. Diagnosis: Last Documented On 07/07/2009 8:34AM By Rosy ALVA ; [facility] Simvastatin 20 MG OR TABS 07/06/2009 - 01/02/2010 Prov ider: STEVEN FLORES PA-C Diagnosis: Last Documented On 01/02/2010 10:36AM By STEVEN FLORES PA-C ; [facility] oxyBUTYnin Chloride 5 MG OR TABS 07/06/2009 - 01/03/20 Provider: STEVEN FLORES PA-C Diagnosis: Last Documented On 01/02/2010 10:36AM By STEVEN FLORES PA-C ; [facility] Xyzal 5 MG OR TABS 06/19/2009 - 2009 Provider: STEVEN FLORES PA-C Diagnosis: DRUG ALLERGY NEC Last Documented On 06/19/2009 9:49PM By STEVEN FLORES PA-C ; [facility] hydroCHLOROthiazide 25 MG TABS 9 - 07/07/2009 Provider: STEVEN FLORES PA-C Diagnosis: BENIGN HYPERTENS ION Last Documented On 07/07/2009 8:34AM By Rosy ALVA ; [facility] [place] 180 MG OR TABS 06/09/2009 - 12/06/2009 Provide r: STEVEN FLORES PA-C Diagnosis: Last Documented On 06/09/2009 12:56PM By STEVEN FLORES PA-C ; [facility] Benicar HCT 40-12.5 MG OR TABS 06/09/2009 - 07/07/2009 Provider: STEVEN FLORES PA-C Diagnosis: Last Documented On 07/07/2009 8:35AM By Rosy ALVA ; [facility] Aciphex 20 MG OR TBEC 06/05/2009 - 08/31/2009 Provider : STEVEN FLORES PA-C Diagnosis: Last Documented On 08/31/2009 3:11PM By STEVEN FLORES PA-C ; [facility] oxyBUTYnin Chloride 5 MG OR TABS 06/03/2009 - 07/03/20 Provider: Diagnosis: Last Documented On 07/05/2009 11:25AM By Jonny Lamb ; [facility] Medrol (Kash) 4 MG OR TABS 05/13/2009 - 07/07/2009 Prov ider: TANNER MYERS PA-C Diagnosis: COUGH as directed Last Documented On 9 9:04AM By DARSHANA TORRES MD ; [facility] Advair Diskus 250-50 MCG/DOSE IN MISC 05/13/2009 - 06/10/2009 Provider: TANNER GRIFFITH PA-C Diagnosis: COUGH Last Documented On 05/13/2009 9:31AM By TANNER MYERS ; [facility] Ventolin HFA 108 (90 Base) MCG/ACT IN AERS 05/13/2009 - 06/12/2009 Provider: TANNER GRIFFITH PA-C Diagnosis: COUGH 2 puffs q 4-6 hours prn. Last Documented On 05/13/2009 9:31AM By TANNER MYERS ; [facility] Singulair 10 MG OR TABS 05/05/2009 - 05/19/2009 Provider: STEVEN Banegas Diagnosis: PNEUMONIA, ORGAN ISM NOS Last Documented On 05/05/2009 4:06PM By STEVEN FLORES PA-C ; [facility] Lisinopril-hydroCHLOROthiazi de 20-12.5 MG TABS 05/03/2009 - 06/19/2009 Provider: STEVEN FLORES PA-C Diagnosis: Last Documented On 9 7:05PM By JEREMÍAS MACHUCA ; [facility] Advair Diskus 100-50 MCG/DOSE IN MISC 04/20/2009 - 05/18/2009 Provider: STEVEN L PAGE PA- C Diagnosis: BRONCHITIS NOS one puff twice a day Last Documented On 04/20/2009 9:43AM By STEVEN FLORES PA-C ; [facility] predniSONE 20 MG OR TABS 04/20/2009 - 05/02/2009 Provi blu: STEVEN FLORES PA-C Diagnosis: BRONCHITIS NOS 3 x 3 d, 2 x 3d, 1x3d, 1/2 x 3d then d/c Last Documented On 04/20/2009 9:43AM By STEVEN FLORES PA-C ; [facility] Tussionex Pennkinetic ER 10-8 MG/5ML OR LQCR 04/20/2009 - 05/20/2009 Provider: STEVEN Banegas Diagnosis: BRONCHITIS NOS one tsp twice a day PRN Last Documented On 04/20/2009 9:43AM By STEVEN FLORES PA-C ; [facility] Proventil HFA 108 (90 Base) MCG/ACT IN AERS 04/10/2009 - 05/10/2009 Provider: STEVEN Paris Diagnosis: ACUTE BRONCHITIS 2 puffs every 4-6 hours PRN Last Documented On 04/10/2009 11:51AM By STEVEN FLORES PA-C ; [facility] Tessalon Perles 100 MG OR CAPS 04/10/2009 - 05/10/2009 Provider: STEVEN Banegas Diagnosis: ACUTE BRONCHITIS 1-2 tabs tid PRN Last Documented On 04/10/2009 11:51AM By STEVEN FLORES PA-C ; [facility] Zithromax Z-Kash 250 MG OR TABS 04/10/2009 - 04/15/2009 Provider: STEVEN Banegas Diagnosis: ACUTE BRONCHITIS as directed Last Documented On 04/10/2009 11:51AM By STEVEN FLORES PA-C ; [facility] Aciphex 20 MG OR TBEC 03/06/2009 - 06/05/2009 Provider : STEVEN FLORES PA-C Diagnosis: Last Documented On 06/05/2009 2:36PM By STEVEN FLORES PA-C ; [facility] Simvastatin 20 MG OR TABS 12/30/2008 - 06/28/2009 Prov ider: Diagnosis: Last Documented On 02/09/2009 2:46PM By RACQUEL JIMENEZ ; [facility] Medications Administered Includes: Administered Medications in patient's chart No Administered Medications Recorded Results Includes: Results from 12/31/2023 through 12/30/2024 No Results Recorded For Specified Dates History of Present Illness History of Present Illness not supported for this document type No History of Present Illness Recorded Social History Description Last Updated Tobacco non-user 06/14/2022 Last Documented On 2 1:35PM ; [facility] Personal history plans to retire 10/05 0 05/27/2017 Last Documented On 7 9:43AM ; [facility] Alcohol use: 2 drinks or less per day RA RELY 05/27/2017 Last Documented On 7 9:43AM ; [facility] Education history 05/27/2017 Last Documented On 7 9:43AM ; [facility] In monogamous relationship 05/27/2017 Last Documented On 7 9:43AM ; [facility] Marital history 05/27/2017 Last Documented On 7 9:43AM ; [facility] Non-smoker 05/27/2017 Last Documented On 7 9:43AM ; [facility] Sexually active 05/27/2017 Last Documented On 7 9:43AM ; [facility] Smoking status : Never smoker 05/27/2017 Last Documented On 7 9:43AM ; [facility] Social history unchanged 05/27/2017 Last Documented On 7 9:43AM ; [facility] Currently 05/02/2016 Last Documented On 6 3:14PM ; [facility] Educational level 05/02/2016 Last Documented On 6 3:14PM ; [facility] Not using alcohol 05/02/2016 Last Documented On 6 3:14PM ; [facility] Procedures and Surgical History Surgical History Last Updated Surgical / procedural histor y SINUS SURGERY 11/02 ~THYROIDECTOMY 08/2015 benign nodules 05/02/2016 Last Documented On 6 3:14PM ; [facility] Surgical history unchanged 04/13/2015 Last Documented On 5 8:37AM ; [facility] History of total abdominal hysterectomy 04/12/2014 Last Documented On 4 8:44AM ; [facility] History of hysterectomy 06/15/19962012 Last Documented On 3 1:38PM ; [facility] Bilateral salpingo-oophorectomy 03/11/20 12 Last Documented On 2 10:59AM ; [facility] Breast Biopsy 03/07/2011 Last Documented On 1 10:57AM ; [facility] Stent 01/24/2010 Last Documented On 0 10:41PM ; [facility] History of cholecystectomy 01/24/2010 Last Documented On 0 10:41PM ; [facility] Medical History Includes: Medical History in patient's chart Description Last Updated Last mammogram date: 08/201605/27/2017 Last Documented On 7 9:43AM ; [facility] PRIMARY CARE PROVIDER : Dr. Cheryl Shukla ~ DR. LISA JOY ~DR. VALERIO BREAST SPECIALIST 04/13/2015 Last Documented On 5 8:37AM ; [facility] A colonoscopy was performed 09/26/2009 Varinder BOWLES 201304/13/2015 Last Documented On 5 8:37AM ; [facility] History of a DEXA of the lateral lumbar spine was performed 06/11/2013 04/13/2015 Last Documented On 5 8:37AM ; [facility] History of Pap smear done 03/11/201203/21 Last Documented On 5 8:37AM ; [facility] History of screening mammogram was perfo rmed 05/06/2014 04/13/2015 Last Documented On 5 8:37AM ; [facility] GERD ~hyperilpidemia ~LISA/BS O DUB ENDOMETRIOSIS ~2004- Bladder ~ ~urge incont. ~status post anterior repair 04/12/2014 Last Documented On 4 8:44AM ; [facility] No recent change in medical history 03/21 Last Documented On 4 8:44AM ; [facility] Result: normal 04/12/2014 Last Documented On 4 8:44AM ; [facility] Result: normal 04/12/2014 Last Documented On 4 8:44AM ; [facility] Status post hysterectomy DUB 04/05/2013 Last Documented On 3 1:38PM ; [facility] History of menopause 04/05/2013 Last Documented On 3 1:38PM ; [facility] LMP: 06/15/1996 04/05/2013 Last Documented On 3 1:38PM ; [facility] Last pap smear date 03/11/2012 03/11/2012 Last Documented On 2 10:59AM ; [facility] History of benign essential hypertension 03/07/2011 Last Documented On 1 10:57AM ; [facility] Taking OTC medications including Mucinex 08/20/2010 Last Documented On 0 5:52PM ; [facility] History of chronic reflux esophagitis Last Documented On 0 2:47PM ; [facility] History of thyroid disorder THYROID NODU LES 01/25/2010 Last Documented On 0 2:47PM ; [facility] Para 2 01/25/2010 Last Documented On 0 2:47PM ; [facility] Vaginal delivery 01/25/2010 Last Documented On 0 2:47PM ; [facility] 2 living children 01/15/2010 Last Documented On 0 10:41PM ; [facility] A mammogram was performed 07/30/0701/15 Last Documented On 0 10:41PM ; [facility] 2 01/15/2010 Last Documented On 0 10:41PM ; [facility] Hypertension 01/15/2010 Last Documented On 0 10:41PM ; [facility] History of essential hypertension 2008 Last Documented On 9 9:49PM ; [facility] Taking medication - prescrip tion Patient currently taking Levaquin. Finished Zithromax. Tussionex helping. Proventil inhaler seems to help for a little while 04/20/2009 Last Documented On 9 9:51AM ; [facility] Taking OTC pain medication /fever. Using Tylenol 04/10/2009 Last Documented On 9 11:51AM ; [facility] History of hypertension 02/09/2009 Last Documented On 9 2:50PM ; [facility] Surgery GALBLADDER 1978 ~BLADDER 02/20 Last Documented On 9 2:50PM ; [facility] Family History Includes: Family History in patient's chart Description Last Updated Maternal history of diabetes mellitus Mo ther 05/02/2016 Last Documented On 6 3:14PM ; [facility] Family history of diabetes mellitus Moth er 04/13/2015 Last Documented On 5 8:37AM ; [facility] Family history of hypercholesterolemia F ather 04/13/2015 Last Documented On 5 8:37AM ; [facility] Family history of hypertension Patient, Father 04/13/2015 Last Documented On 5 8:37AM ; [facility] Family history unchanged 04/13/2015 Last Documented On 5 8:37AM ; [facility] Spouse name: DARLING 03/07/2011 Last Documented On 1 10:57AM ; [facility] First child named 01/25/2010 Last Documented On 0 2:47PM ; [facility] No family history of malignant female br east neoplasm 01/25/2010 Last Documented On 0 2:47PM ; [facility] No family history of malignant neoplasm of the large intestine 01/25/2010 Last Documented On 0 2:47PM ; [facility] No family history of malignant neoplasm of the ovary 01/25/2010 Last Documented On 0 2:47PM ; [facility] No family history of uterine cancer 05/2010 Last Documented On 0 2:47PM ; [facility] Second child named 01/25/2010 Last Documented On 0 2:47PM ; [facility] Family history of Diabetes (m) 0 Last Documented On 0 10:41PM ; [facility] Family medical history of high blood pre ssure &hyperlipidemia(F) 01/15/2010 Last Documented On 0 10:41PM ; [facility] Brother BLOCKED ARTERIES 2008 Last Documented On 9 2:50PM ; [facility] Brother HAS MS 02/09/2009 Last Documented On 9 2:50PM ; [facility] Father 02/09/2009 Last Documented On 9 2:50PM ; [facility] Heart disease 02/09/2009 Last Documented On 9 2:50PM ; [facility] Mother 02/09/2009 Last Documented On 9 2:50PM ; [facility] Review of Systems Review of Systems not supported for this document type No Review of Systems Recorded Mental Status No Mental Status Recorded Functional Status No Functional Status Recorded Physical Exam Physical Exam not supported for this document type No Physical Exam Recorded Immunizations Includes: Immunizations in patient's chart Vaccine Dose # Date Site Reaction(s) Status Source DTaP 1 Complete (Reported) Lo ent Last Documented On 1 10:39AM ; [facility] Influenza (Quadrivalent)36 mo.& older PF 0.5ml (SD) 1 07/07/2009 Right Arm Complete (Administered) [facility] Last Documented On 9 8:53AM ; [facility] Influenza (Quadrivalent)36 mo.& older PF 0.5ml (SD) 2 09/19/2010 Right Arm Complete (Administered) [facility] Last Documented On 0 12:20PM ; [facility] Td 1 Complete (Reported) Lo ent Last Documented On 1 10:39AM ; [facility] Zostavax 1 Complete (Reported) Pat ient Last Documented On 2 10:48AM ; [facility] Allergies Includes: Active, inactive, and resolved Allergies Substance Type Reaction Onset Date Resolved Date Statu s Sulfa Antibiotics Allergy 02/09/2009 A ctive Last Documented On 3 3:29PM ; [facility] Fish Oil Allergy THROAT, MOUTH AND EARS ITCH 04/12/2014 Active Last Documented On 3 3:29PM ; [facility] CeleBREX Allergy 02/09/2009 Active Last Documented On 3 3:29PM ; [facility] Insurance Includes: Active Insurance Policies Plan Name Member ID Group # Subscriber Relationship Effect grant Dates 1 - [facility]/MEDICARE ADV/AARP [id number] MONAE lieberman Clinical Notes Includes: Signed Clinical Notes starting from 11/08/2022 No Clinical Notes Recorded
== END 2024-12-30 12:47 | disposition home or self-care (01) ==
PROVIDERS: PCP Internal Medicine Infectious Disease; Visit Provider Orthopaedic Surgery
DX: M19.012 Primary osteoarthritis, left shoulder (principal); S42.92XP Fracture of left shoulder girdle, part unspecified, subsequent encounter for fracture with malunion; X58.XXXD Exposure to other specified factors, subsequent encounter
CPT/HCPCS: 73200

== ENCOUNTER 2025-01-05 13:37 | Outpatient (CLI) | payer MEDICARE, SELFPAY ==
--- OUTSIDE RECORDS SUMMARY | 2025-01-05 15:12 | XMS_ITS ---
Care Plan - [facility] Created on: January 05, 2025 MONAE PRESCOTT : 1950 Sex: Female Author Organization [facility] Address [address] [place] [address] Phone Care Team Providers Care Neon Sign Installer Name Role Phone JUNAID SONI, MILENA Banegas Unavailable [phone] MABEL MULLINS Primary Care Provider [phone]
--- OUTSIDE RECORDS SUMMARY | 2025-01-05 15:12 | XMS_ITS | Clinical Summary ---
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 Active dexlansoprazole (DEXILANT) 60 mg Delayed Release capsule Take 60 mg by mouth daily. Active LIVALO 2 mg Tablet 07/27/2016 Active oxybutynin chloride (DITROPAN) 5 mg tablet 08/26/2016 Active MOXIFLOXICIN 0.5 % solution 06/13/2016 Active Active Problems Patient Care Coordination No te Formatting of this note migh t be different from the original. 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 Gender Identity Not on file Sexual Orientation Not on file Occupation Industry Job Start Date Job End Date Not on file Not on file Not on file Not on file Last Filed Vital Signs Vital Sign Reading Time Taken Comments Blood Pressure 138/76 09/29/2017 11:22 AM DRAW TENDER Pulse 74 09/20/2016 12:41 PM DRAW TENDER Temperature - - Respiratory Rate - - Oxygen Saturation - - Inhaled Oxygen Concentration - - Weight 108.1 kg (238 lb 5.1 oz) 017 11:22 AM DRAW TENDER Height 167.6 cm (5' 6 ) 09/29/2017 11:2 2 AM DRAW TENDER Body Mass Index 38.47 09/29/2017 11:22 AM DRAW TENDER Plan of Treatment Health Maintenance Due Date [...] OR WO CAD Routine 09/29/2017 11:01 AM DRAW TENDER Visit for screening mammogram from Last 3 Months or Most Recently Relevant to Health Maintenance Results * MAMMO DIG SCREEN BILAT W 3D CORNELL (09/29/2017 11:01 AM DRAW TENDER) Anatomical Region Laterality Modality Breast Bilateral Mammography 09/29/2017 11:0 1 AM DRAW TENDER Impressions 09/30/2017 11:11 AM DRAW TENDER IMPRESSION: No mammographic evidence of malignancy. RECOMMENDATIONS: Routine screening mammogram in one year. Dictated from: Ange Cuevas 09/30/2017 11:11 AM DRAW TENDER BILATERAL FULL-FIELD DIGITAL SCREENING MAMMOGRAM WITH CAD [...] Relevant to Health Maintenance Insurance Care Teams [employer] Relationship Specialty Start Date End Date Cheryl Shukla MD PCP - General Internal Medicine 08/21/12
--- OUTSIDE RECORDS SUMMARY | 2025-01-05 15:12 | XMS_ITS | Encounter Summary ---
Author Organization [facility] Healthcare Address [address] [place] [address] Care Team Providers Care Operator Lights Name Role Phone Jh Tena MD Unavailable [phone] Carmen Hurst MD Unavailable Reji Clarke DO Unavailable [phone] Nathan Cross MD Primary Care Provider [phone] Vaughn Melendez MD Unavailable [phone] Frederick Burton DMD Unavailable [phone] Doris Brenner DO Unavailable [phone] Obdulio Kumar MD Unavailable Catracho Fernandez MD Unavailable [phone] El Vo MD Unavailable [phone] Pati Yang NP Unavailable [phone] Encounter Details Date Type Department Care Team (Late st Contact Info) Description 12/22/2024 Results Follow-Up [facility] [address] [place] [id number] Nathan Cross MD [address] [place] [address] Social History Tobacco Use Types Packs/Day Years [...] on file 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 Gender Identity Female 05/03/2020 10:38 PM CDT Sexual Orientation Straight 05/03/2020 10 :38 PM CDT 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 Not on file Not on file documented as of this encounter Plan of Treatment Not on file documented as of this encounter Visit Diagnoses Not on filedocumented in this encounter Care Teams Operator Lights Relationship Specialty Start Date End Date Nathan Cross MD [address] [place] [address] PCP - General Infectious Diseases 02/17/20 Jh Tena MD Consulting Physician Cardiology 01/08/18 Carmen Hurst MD Consulting Physician Neurology 01/08/18 Reji Clarke DO [address] [place] [address] Referring Physician Orthopedic Surgery 08/17/19 Vaughn Melendez MD [address] [place] [address] Consulting Physician Gastroenterology 08/03/20 Frederick Burton, ALFRED [address] [place] [address] Dentist Dental Machine Slat Basket Maker 04/12/21 Doris Brenner DO [address] [facility] Tavera [address] [address] Consulting Physician Otolaryngology 12/28/21 Obdulio Kumar MD [address] [facility] [address] [address] [place] [address] Consulting Physician Gastroenterology 04/03/23 [place] [address] [address] Consulting Physician Orthopedic Surgery 04/24/23 El Vo MD [address] [address] Referring Physician Orthopedic Surgery 10/15/23 Pati Yang NP [address] [address] Nurse Practitioner Cardiology 03/31/24 documented as of this encounter
--- OUTSIDE RECORDS SUMMARY | 2025-01-05 15:12 | XMS_ITS | Continuity of Care Document ---
Author Organization [employer] [facility] Address [address] [place] [address] Phone Care Team Providers Care Commercial Artist Name Role Phone Carol Villagomez OD Unavailable [...] Diagnoses Date Provider Providers Copied on Encounter [facility], [address] [address], [place], [place], [id number], [place] tel:[phone] [facility] Professional Complete Exam (chief complaint) Pseudophakia of both eyesOther secondary cataract, left eyeCornea verticillata of both eyesDry eye syndrome of bilateral lacrimal glandsVitreo us degeneration , left eye 4 Hernando OD Carol. [address], [address], [place], [place], [address], [place]. tel:[phone] Luis Alberto Beauchamp MD.Referring Provider: Saw Luther, [address], [address]. tel:[phone] [facility], [address] [place] [address] [address], [place], [place], [address], [place] tel:[phone] SEC [place] Professional Complete Exam (chief complaint) Pseudophakia of both eyesOther secondary cataract, left eyeCornea verticillata of both eyesDry eye syndrome of bilateral lacrimal glands 3 Hernando OD Carol. [address] [place] [address] [address], [address], [place], [place], [address], [place]. tel:[phone] Luis Alberto Beauchamp MD.Referring Provider: Saw Luther, [address], [address]. tel:[phone] [facility], [address] [place] [address] [address], [place], [place], [address], [place] tel:[phone] [facility] [place] Professional Complete Exam (chief complaint) Cornea verticillata of both eyesInsuffic iency of tear film of both eyesPseudoph chitra of both eyes 2 Jean Claude Lawson. [address], [facility] [place], [address], [place]. tel:[phone] Luis Alberto Beauchamp MD.Referring Provider: Saw Luther, [address], [address]. tel:[phone] [facility], [address] [place] [address] [address], [place], [place], [address], [place] tel:[phone] SEC [place] Professional Complete Exam (chief complaint) Pseudophakia of both eyesCornea verticillata of both eyesDry eye syndrome of left lacrimal gland 1 Jean Claude Lawson. [address] [facility], [place], [place], [address], [place]. tel:[phone] Referring Provider: Saw Luther, [address], [address]. tel:[phone] [facility], [address], [place], [place], [address], [place] tel:[phone] SEC [place] Professional Complete Exam (chief complaint) Vitreous degeneration , right eyeOther secondary cataract, left eyeCornea verticillata of both eyesPseudoph chitra of both eyes 0-202 0 Wei OD Alexander. [address] [place] [address], [address] [place] [address], [place], [address], [place]. tel:[phone] Referring Provider: Saw Luther, [address], [address]. tel:[phone] [facility], [address] [place] [address] [address], [place], [place], [address], [place] tel:[phone] SEC [place] Professional No Information 0 Jean Claude Lawson. [address] [facility], [address], [place], [place], [address], [place]. tel:[phone] Specialist: Luis Alberto Beauchamp MD, [address] [place] [address] [address], [place], [address]. tel:[phone] [facility], [address] [place] [address] [address], [place], [place], [address], [place] tel:[phone] SEC [place] Professional 3 week s/p YAG PC (chief complaint) Encounter for examination following surgery 2201 9 Wei OD Alexander. [address] [place] [address], 6th [facility], [place], [address], [place]. tel:[phone] Referring Provider: Saw Luther, [address], [address]. tel:[phone] [facility], [address], [place], [place], [address], [place] tel:[phone] [facility] [place] Professional Complete Exam (chief complaint) Pseudophakia of both eyesOther secondary cataract, bilateralPun ctate keratitis, bilateralCor greg verticillata of both eyes Jan-1 2-201 9 Jean Claude Lawson. [address], [place], [address], [place]. tel:[phone] Referring Provider: Saw Luther, [address], [address]. tel:[phone] [facility], [address] [place] [address] [address], [place], [place], [address], [place] tel:[phone] SEC [facility] [place] Professional No Information Jan-0 5- 9 Jean Claude Lawson. [address], [address] [place], [address], [place]. tel:[phone] [facility], [address] [place] [address] [address], [place], [place], [address], [place] tel:[phone] SEC [place] Professional Complete Exam (chief complaint) Insufficienc y of tear film of both eyesPseudoph chitra of both eyes Jared-2 3-201 7 Jean Claude Lawson. [address], [address] [place], [address], [place]. tel:[phone] Referring Provider: Saw Luther, [address], [address]. tel:[phone] [facility], [address] [place] [address] [address], [place], [place], [address], [place] tel:[phone] SEC [place] Professional Post-Op (chief complaint) No Information Jun-3 0-201 6 Jean Claude Lawson. [address], [address] [place], [address], [place]. tel:[phone] Referring Provider: Saw Luther, [address], [address]. tel:[phone] [facility], [address], [place], [place], [address], [place] tel:[phone] SEC [facility] Professional Post-Op (chief complaint) No Information Sep-0 6 Silverio Renny. [address] [facility], [address] [place], [address], [place]. tel:[phone] Referring Provider: Saw Luther, [address], [address]. tel:[phone] [facility], [address] [place] [address] [address], [place], [place], [address], [place] tel:[phone] SEC [facility] Professional Post-Op (chief complaint) No Information Sep-0 - 6 Wankum Marlo. [address], [address] [place], [address], [place]. tel:[phone] Referring Provider: Saw Luther, [address], [address]. tel:[phone] [facility], [address], [place], [place], [address], [place] tel:[phone] [facility] No Information May-3 - 6 Jean Claude Lawson. [address], [address] [place], [address], [place]. tel:[phone] Referring Provider: Saw Luther, [address], [address]. tel:[phone] [facility], [address], [place], [place], [address], [place] tel:[phone] [facility] MARIE Professional 1 month post op (chief complaint) No Information 6 Jean Claude Lawson. [address], [place], [address], [place]. tel:[phone] Referring Provider: Saw Luther, [address], [address]. tel:[phone] [facility], [address], [place], [place], [address], [place] tel:[phone] [facility] MARIE Professional Post-Op (chief complaint) No Information 6 Jean Claude Lawson. [address], [address] [place], [address], [place]. tel:[phone] Referring Provider: Saw Luther, [address], [address]. [phone] [facility], [address] [place] [address] [address], [place], [place], [address], [place] [phone] SEC [facility] MARIE Professional F/u exam, postop (chief complaint) No Information 6 Sina Sellers. [address], [address] [place], [address], [place]. tel:[phone] Referring Provider: Saw Luther, [address], [address]. tel:[phone] [facility], [address], [place], [place], [address], [place] [phone] [facility] No Information 6 Jean Claude Lawson. [address], [address] [place], [address], [place]. tel:[phone] Referring Provider: Saw Luther, [facility] [address] [place], [address]. tel:[phone] [facility], [address], [place], [place], [address], [place] tel:[phone] SEC [facility] [place] Professional Cataract Evaluation (chief complaint) No Information Jean Claude Lawson. [address] [facility], [address], [place], [place], [address], [place]. tel:[phone] Referring Provider: Saw Luther, [facility] [address] [place], [address]. tel:[phone] Family History Family Member Type Diagnosis Age At Onset Mother Problem (finding) Diabetes mellitus Payers Payer name Insurance type Covered republican ID Authorramakrishna moss(s) AARP Medicare Complete CI [id number] Social History Type Description Quantity Date Captured [...] Encou nter for examination following surgery Impression/Plan Follow up - Return t o clinic in 1 year for complete exam Impression/Plan - Oc ular dryness OU:- Dryness looks improved compared to previous.- Recommend patient continue AFT as needed. - Overall eye health is very good OU.- Vision and IOP are stable OU.- Recommend patient return to clinic in 1 year or sooner with problems. 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 Follow up - as scheduled Impression/Plan - 1 day post op Phaco with PCIOL OD, discussed post op instructions and medication use. Return to clinic as scheduled. Follow up - Proceed with OD CE [...] -1.50 or slightly over for her OD Follow up - Return t o clinic [...] case given to patient. Follow up - as scheduled Impression/Plan - 1 day post op Phaco with PCIOL OS, discussed post op instructions and medication use. Return to clinic as scheduled Follow up - Schedule CE OS first with the standard IOL set for DISTANCE, followed by CE OD with the standard IOL set for NEAR. Impression/Plan - Ca taract Diagnosis OU discussed [...]
--- OUTSIDE RECORDS SUMMARY | 2025-01-05 15:12 | XMS_ITS | Encounter Summary ---
Author Organization [facility] Healthcare Address [address] [place] [address] Care Team Providers Care Bible Reader Name Role Phone Jh Tena MD Unavailable [phone] Carmen Hurst MD Unavailable Luis Alberto Beauchamp MD Unavailable [phone] Reji Clarke DO Unavailable [phone] Nathan Cross MD Primary Care Provider Vaughn Melendez MD Unavailable [phone] Frederick Burton DMD Unavailable [phone] Doris Brenner DO Unavailable [phone] Obdulio Kumar MD Unavailable Catracho Fernandez MD Unavailable [phone] El Vo MD Unavailable [phone] Pati Yang NP Unavailable [phone] Encounter Details Date Type Department Care Team (Late st Contact Info) Description 01/29/2024 Orders Only [facility] [address] [place] [address] Scanning, Provider Social History Tobacco [...] on file 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 Gender Identity Female 05/03/2020 10:38 PM CDT [...] on filedocumented in this encounter Care Teams Bible Reader Relationship Specialty Start Date End Date Nathan Cross MD [address] [place] [address] PCP - General Infectious Diseases 02/17/20 Jh Tena MD Consulting Physician Cardiology 01/08/18 Carmen Hurst MD Consulting Physician Neurology 01/08/18 Luis Alberto Beauchamp MD [address] [facility] [address] [place] [address] Consulting Physician Endocrinology 06/18/19 02/12/24 Reji Clarke DO [address] [place] [address] Referring Physician Orthopedic Surgery 08/17/19 Vaughn Melendez MD [address] [place] [address] [address] [place] [address] Consulting Physician Gastroenterology 08/03/20 Frederick Burton DMD [address] [place] [address] Dentist Dental Reference Archivist 04/12/21 Doris Brenner DO [address] [place] [address] [address] [address] Consulting Physician Otolaryngology 12/28/21 Obdulio Kumar MD [address] [place] [address] [address] [place] [address] Consulting Physician Gastroenterology 04/03/23 [place] [address] [address] Consulting Physician Orthopedic Surgery 04/24/23 El Vo MD [address] [facility] [address] [place] [address] Referring Physician Orthopedic Surgery 10/15/23 Pati Yang NP [address] [place] [address] Nurse Practitioner Cardiology 03/31/24 documented as of this encounter
--- OUTSIDE RECORDS SUMMARY | 2025-01-05 15:12 | XMS_ITS | Clinical Summary ---
Author Organization [facility] Address [address] [place] [address] Phone Care Team Providers Care Tobacco Sprayer Name Role Phone MILENA QUIROGA MD Unavailable [phone] MABEL MULLINS Primary Care Provider [phone] Reason for Visit and Chief Complaint The Chief Complaint is: Right knee Gelsyn 3 2nd injection Problems Includes: Problems addressed during this encounter and other active Problems Current Visit Onset Date Resolved Date Provider Conditio n Status Osteoarthritis Localized Primary Knee Right 09/27/2022 SHAQ Banegas Active Last Documented On 2 10:05AM ; [facility] History of Prior Surgery: Stent 04/12/2014 LEAH BRUNO RN JN Active Last Documented On 4 8:44AM ; [facility] Note: Unchanged History of Hysterectomy 04/05/2013 MAY Landeros RN JN Active Last Documented On 3 1:24PM ; [facility] Note: Unchanged Past Visits Onset Date Resolved Date Provider Condition Status Joint Pain in the Right Knee on the Inner Side 06/14/2022 SHAQ Banegas Active Last Documented On 2 1:24PM ; [facility] Anemia 04/16/2015 MAY BRUNO RN JN Active Last Documented On 5 1:16PM ; [facility] Colonic Diverticulosis 04/16/2015 MAY BRUNO RN JN [place] Active Last Documented On 5 1:15PM ; [facility] URGE INCONTINENCE 03/07/2011 CHRISSIE ROSADO M.D. Active Last Documented On 1 10:51AM ; [facility] Breast Fibroadenosis Chronic 01/25/2010 MAY BRUNO RN WHN P BC Active Last Documented On 04/13/2015 8:29AM ; [facility] Note: pt s/p removal and all mammogram p erformed by Dr. Clifford at [facility] CYST OF THYROID 01/25/2010 CHRISSIE RODRIGUEZ M.D. Active Last Documented On 01/25/2010 1:41PM ; [facility] Note: pt to see ent and needle molder Esophageal Reflux 01/15/2010 DARSHANA TORRES MD Active Last Documented On 0 10:38PM ; [facility] Hyperlipidemia 02/09/2009 DARSHANA TORRES MD Active Last Documented On 0 10:38PM ; [facility] Essential Hypertension Benign 02/09/2009 DARSHANA TORRES MD Active Last Documented On 0 10:38PM ; [facility] Plan of Treatment I provided her with the right knee Gelsyn injection. This was the second injection in the series. She will follow up next week for the third and final injection in the series. - Last Documented On 11/14/2022 3:16PM ; [facility] Instructions to patient Intervention and counseling on cessation of tobacco use Last Documented On 3 3:14PM ; [facility] Assessments Includes: Assessments from this encounter Findings - [M17.11 - Unilateral primary osteoarthritis, right knee] Localized primary osteoarthritis of right knee - Last Documented On 11/14/2022 3:16PM ; [facility] Instructions Includes: Instructions from this encounter Instructions to patient Intervention and counseling on cessation of tobacco use Last Documented On 3 3:14PM ; [facility] Medical Equipment - Implanted Devices Includes: [...] 06/14/2022 1:15PM By MARCY BHAT LPN ; [facility] Gabapentin 100 MG Oral Capsule 06/14/2022 Provider: Diagnosis: Last Documented On 06/14/2022 1:15PM By MARCY BHAT LPN ; [facility] Valsartan-hydroCHLOROthiazide 320-25 MG Oral Tablet Provider: Diagnosis: Last Documented On 06/14/2022 1:12PM By MARCY BHAT LPN ; [facility] NexIUM 40 MG Oral Capsule Delayed Release 06/14/2022 Provider: Diagnosis: Last Documented On 06/14/2022 1:12PM By MARCY BHAT LPN ; [facility] Furosemide 40 MG Oral Tablet 06/14/2022 Provider: Diagnosis: Last Documented On 06/14/2022 1:11PM By MARCY BAHT LPN ; [facility] Amiodarone HCl 200 MG Oral Tablet 06/14/2022 Provide r: Diagnosis: Last Documented On 06/14/2022 1:10PM By MARCY BHAT LPN ; [facility] Xarelto 20 MG Oral Tablet 06/14/2022 Provider: Diagnosis: Last Documented On 06/14/2022 1:10PM By MARCY BHAT LPN ; [facility] Calcium 600 MG Tablet 05/02/2016 Provider: Diagnosis: Last Documented On 05/02/2016 2:58PM By CLAUDIA REYES MA ; [facility] Multi Vitamin Daily Tablet 05/02/2016 Provider: Diagnosis: Last Documented On 05/02/2016 2:58PM By CLAUDIA REYES MA ; [facility] Irbesartan 300 MG Tablet 05/02/2016 Provider: Diagnosis: Last Documented On 05/02/2016 2:58PM By CLAUDIA REYES MA ; [facility] Metoprolol Succinate ER 25 MG Tablet Extended Re lease 24 Hour 05/02/2016 Provider: Diagnosis: Last Documented On 05/02/2016 2:57PM By CLAUDIA REYES MA ; [facility] Levothyroxine Sodium 175 MCG Tablet 05/02/2016 Provi blu: Diagnosis: Last Documented On 05/02/2016 2:57PM By CLAUDIA REYES MA ; [facility] oxyBUTYnin Chloride 5 MG OR TABS 04/12/2014 Provider : Diagnosis: Last Documented On 04/12/2014 8:27AM By AIRAM SARAVIA ; [facility] Livalo 1 MG OR TABS 04/12/2014 Provider: Diagnosis: Last Documented On 04/12/2014 8:27AM By AIRAM SARAVIA ; [facility] Past Medications on file Terconazole 0.8% VA CREA 04/05/2013 - 04/14/2013 Provider: MAY BRUNO RN [facility] Diagnosis: CANDIDAL VULVOVA GINITIS 1 PAULA IN VAGINA EVERY NIGHT X 3 APPLY BID TO EXTERNAL AREA Last Documented On 3 1:26PM By MAY BRUNO JN- ; [facility] Diflucan 150 MG OR TABS 03/13/2012 - 03/14/2012 Provider: CHRISSIE ROSADO M.D. Diagnosis: CANDIDAL VULVOVA GINITIS 1 po x 1 day Last Documented On 2 12:45PM By DR. CHRISSIE ROSADO ; [facility] oxyBUTYnin Chloride 5 MG OR TABS 07/01/2011 - 12/28/2011 Provider: DARSHANA KAPOOR MD Diagnosis: Last Documented On 1 12:11AM By DARSHANA TORRES MD ; [facility] Aciphex 20 MG OR TBEC 05/27/2011 - 08/25/2011 Provider : MERY KAUFFMAN PA-C Diagnosis: Last Documented On 1 4:37PM By MERY KAUFFMAN PA-C ; [facility] Lisinopril-hydroCHLOROthiazi de 20-12.5 MG TABS 04/29/2011 - 08/27/2011 Provider: STEVEN FLORES PA-C Diagnosis: 1 qd #30 Last Documented On 04/29/2011 12:46PM By STEVEN FLORES PA-C ; [facility] Carbinoxamine Maleate 4 MG OR TABS 03/29/2011 - 05/28/2011 Provider: DARSHANA TORRES MD Diagnosis: ALLERGIC RHINITI S NOS Last Documented On 03/29/2011 1:37PM By Rosy ALVA ; [facility] Oxytrol 3.9 MG/24HR TD PTTW 03/07/2011 - 05/06/2011 Provider: CHRISSIE MILLER ON Ubaldo Diagnosis: URGE INCONTINENC E change patch q 72 hrs Last Documented On 1 10:56AM By DR. CHRISSIE ROSADO ; [facility] NexIUM 40 MG OR CPDR 03/01/2011 - 03/31/2011 Provider: STEVEN FLORES PA-C Diagnosis: Last Documented On 03/01/2011 9:52AM By STEVEN FLORES PA-C ; [facility] Flonase 50 MCG/ACT NA SUSP 11/15/2010 - 12/15/2010 Provider: JULES Banegas Diagnosis: ACUTE SINUSITIS NOS 2 sprays each nostril qd Last Documented On 11/15/2010 3:45PM By JULES MCCARTHY PA-C ; [facility] Zithromax Z-Kash 250 MG OR TABS 11/15/2010 - 11/20/2010 Provider: JULES Banegas Diagnosis: ACUTE SINUSITIS NOS Last Documented On 11/15/2010 3:12PM By JULES MCCARTHY PA-C ; [facility] Cefprozil 500 MG OR TABS 10/25/2010 - 11/04/2010 Provi blu: STEVEN FLORES PA-C Diagnosis: Last Documented On 10/25/2010 10:11AM By STEVEN FLORES PA-C ; [facility] Augmentin 875-125 MG OR TABS 09/11/2010 - 09/21/2010 P rovider: STEVEN FLORES PA-C Diagnosis: Last Documented On 09/11/2010 11:00AM By STEVEN FLORES PA-C ; [facility] Valtrex 1 GM OR TABS 08/20/2010 - 08/21/2010 Provider: STEVEN FLORES PA-C Diagnosis: HERPES SIMPLEX N OS 2 tabs po now, repeat in 12 hours Last Documented On 08/20/2010 5:51PM By STEVEN FLORES PA-C ; [facility] Levaquin 750 MG OR TABS 08/20/2010 - 08/25/2010 Provid er: STEVEN FLORES PA-C Diagnosis: BRONCHITIS NOS Last Documented On 08/20/2010 5:51PM By STEVEN FLORES PA-C ; [facility] Tussionex Pennkinetic ER 10-8 MG/5ML OR LQCR 08/20/2010 - 09/19/2010 Provider: STEVEN Banegas Diagnosis: BRONCHITIS NOS one tsp po BID PRN Last Documented On 08/20/2010 5:51PM By STEVEN FLORES PA-C ; [facility] Simvastatin 20 MG OR TABS 06/27/2010 - 12/24/2010 Prov ider: STEVEN FLORES PA-C Diagnosis: Last Documented On 06/27/2010 12:04PM By STEVEN FLORES PA-C ; [facility] Flonase 50 MCG/ACT NA SUSP 07/21/2009 - 08/20/2009 Pro vider: TANNER MYERS PA-C Diagnosis: 2 sprays q nare qd Last Documented On 07/21/2009 1:27PM By TANNER MYERS ; [facility] [place] 180 MG OR TABS 07/21/2009 - 08/20/2009 Provide r: TANNER MYERS PA-C Diagnosis: Last Documented On 07/21/2009 1:27PM By TANNER MYERS ; [facility] Protonix 40 MG OR TBEC 07/07/2009 - 07/17/2009 Provider: DARSHANA KAPOOR MD Diagnosis: REFLUX ESOPHAGIT IS Last Documented On 9 9:04AM By DARSHANA TORRES MD ; [facility] Medrol (Kash) 4 MG OR TABS 07/07/2009 - 07/13/2009 Prov ider: DARSHANA TORRES MD Diagnosis: COUGH as directed Last Documented On 9 9:04AM By DARSHANA TORRES MD ; [facility] Lisinopril-hydroCHLOROthiazi de 20-12.5 MG TABS 07/07/2009 - 08/06/2009 Provider: DARSHANA HEATON M.D. Diagnosis: Last Documented On 07/07/2009 8:34AM By Rosy ALVA ; [facility] Xyzal 5 MG OR TABS 06/19/2009 - 2009 Provider: STEVEN FLORES PA-C Diagnosis: DRUG ALLERGY NEC Last Documented On 06/19/2009 9:49PM By STEVEN FLORES PA-C ; [facility] [place] 180 MG OR TABS 06/09/2009 - 12/06/2009 Provide r: STEVEN FLORES PA-C Diagnosis: Last Documented On 06/09/2009 12:56PM By STEVEN FLORES PA-C ; [facility] oxyBUTYnin Chloride 5 MG OR TABS 06/03/2009 - 07/03/20 Provider: Diagnosis: Last Documented On 07/05/2009 11:25AM By Jonny Lamb ; [facility] Advair Diskus 250-50 MCG/DOSE IN MISC 05/13/2009 - 06/10/2009 Provider: TANNER GRIFFITH PA-C Diagnosis: COUGH Last Documented On 05/13/2009 9:31AM By TANNER MYERS ; [facility] Ventolin HFA 108 (90 Base) MCG/ACT IN AERS 05/13/2009 - 06/12/2009 Provider: TANNER GRIFFITH PA-C Diagnosis: COUGH 2 puffs q 4-6 hours prn. Last Documented On 05/13/2009 9:31AM By TANNER MYERS ; [facility] Singulair 10 MG OR TABS 05/05/2009 - 05/19/2009 Provider: STEVEN Banegas Diagnosis: PNEUMONIA, ORGAN ISM NOS Last Documented On 05/05/2009 4:06PM By STEVEN FLORES PA-C ; [facility] Advair Diskus 100-50 MCG/DOSE IN MISC 04/20/2009 - 05/18/2009 Provider: STEVEN Banegas Diagnosis: BRONCHITIS NOS one puff twice a day Last Documented On 04/20/2009 9:43AM By STEVEN FLORES PA-C ; [facility] predniSONE 20 MG OR TABS 04/20/2009 - 05/02/2009 Provi blu: STEVEN FLORES PA-C Diagnosis: BRONCHITIS NOS 3 x 3 d, 2 x 3d, 1x3d, 1/2 x 3d then d/c Last Documented On 04/20/2009 9:43AM By STEVEN FLORES PA-C ; [facility] Tussionex Pennkinetic ER 10-8 MG/5ML OR LQCR 04/20/2009 - 05/20/2009 Provider: STEVEN Banegas Diagnosis: BRONCHITIS NOS one tsp twice a day PRN Last Documented On 04/20/2009 9:43AM By STEVEN FLORES PA-C ; [facility] Proventil HFA 108 (90 Base) MCG/ACT IN AERS 04/10/2009 - 05/10/2009 Provider: STEVEN [place] Diagnosis: ACUTE BRONCHITIS 2 puffs every 4-6 hours PRN Last Documented On 04/10/2009 11:51AM By STEVEN FLORES PA-C ; [facility] Tessalon Perles 100 MG OR CAPS 04/10/2009 - 05/10/2009 Provider: STEVEN Banegas Diagnosis: ACUTE BRONCHITIS 1-2 tabs tid PRN Last Documented On 04/10/2009 11:51AM By STEVEN FLORES PA-C ; [facility] Zithromax Z-Kash 250 MG OR TABS 04/10/2009 - 04/15/2009 Provider: STEVEN Banegas Diagnosis: ACUTE BRONCHITIS as directed Last Documented On 04/10/2009 11:51AM By STEVEN FLORES PA-C ; [facility] Simvastatin 20 MG OR TABS 12/30/2008 - 06/28/2009 Prov ider: Diagnosis: Last Documented On 02/09/2009 2:46PM By RACQUEL JIMENEZ ; [facility] Medications Administered Includes: Administered Medications from this encounter No Administered Medications Recorded Vital Signs Includes: Vital Signs from this encounter Vital Name 11/14/2022 03:11P Blood Pressure Sitting (mmHg) 134/82 Pulse Rate-Sitting (bpm) 78 Height (in) 66.5 Last Documented: On 11/14/2022 3:11PM ; [facility] Results Includes: Results discussed during this [...] 06/14/2022 Last Documented On 3 3:11PM ; [facility] Personal history plans to retire 10/05 0 05/27/2017 Last Documented On 3 3:11PM ; [facility] Alcohol use: 2 drinks or less per day RA RELY 05/27/2017 Last Documented On 3 3:11PM ; [facility] Education history 05/27/2017 Last Documented On 3 3:11PM ; [facility] In monogamous relationship 05/27/2017 Last Documented On 3 3:11PM ; [facility] Marital history 05/27/2017 Last Documented On 3 3:11PM ; [facility] Non-smoker 05/27/2017 Last Documented On 3 3:11PM ; [facility] Sexually active 05/27/2017 Last Documented On 3 3:11PM ; [facility] Smoking status : Never smoker 05/27/2017 Last Documented On 3 3:11PM ; [facility] Social history unchanged 05/27/2017 Last Documented On 3 3:11PM ; [facility] Currently 05/02/2016 Last Documented On 3 3:11PM ; [facility] Educational level 05/02/2016 Last Documented On 3 3:11PM ; [facility] Not using alcohol 05/02/2016 Last Documented On 3 3:11PM ; [facility] Procedures and Surgical History Includes: Procedures from this encounter Procedures Code Diagnosis Performing Provider Service L ocation Service Date intervention and counseling on cessation of tobacco use 4000F Last Documented On 3 3:14PM ; [facility] use of tobacco assessment performed 1000F Last Documented On 3 3:11PM ; [facility] patient screened for future fall risk: documentation of any fall with injury in past year 1100F Last Documented On 3 3:11PM ; [facility] review of medications documented 1160F Last Documented On 3 3:11PM ; [facility] encouragement to exercise Last Documented On 3 3:14PM ; [facility] Informed consent obtained Ri s and benefits [...] obtained Last Documented On 3 3:14PM ; [facility] Sodium Hyaluronate, 5 mg for intra-articular injection The right knee was prepped in aseptic technique. I injected Gelsyn viscosupplementation into the right knee using a 22 gauge 1-2 needle. Patient tolerated the procedure well and post procedure showed no signs of complications. Patient will be seen for the continuation of the series [id number] Last Documented On 3 3:14PM ; [facility] Surgical History Last Updated Surgical / procedural histor y SINUS SURGERY 11/02 ~THYROIDECTOMY 08/2015 benign nodules 05/02/2016 Last Documented On 3 3:11PM ; [facility] Surgical history unchanged 04/13/2015 Last Documented On 3 3:11PM ; [facility] History of total abdominal hysterectomy 04/12/2014 Last Documented On 3 3:11PM ; [facility] History of hysterectomy 06/15/19962012 Last Documented On 3 3:11PM ; [facility] Bilateral salpingo-oophorectomy 03/11/20 Last Documented On 3 3:11PM ; [facility] Breast Biopsy 03/07/2011 Last Documented On 3 3:11PM ; [facility] Stent 01/24/2010 Last Documented On 3 3:11PM ; [facility] History of cholecystectomy 01/24/2010 Last Documented On 3 3:11PM ; [facility] Medical History Includes: Medical History addressed during this encounter Description Last Updated Last mammogram date: 08/201605/27/2017 Last Documented On 3 3:11PM ; [facility] PRIMARY CARE PROVIDER : Dr. Cheryl Shukla ~ DR. LISA JOY ~DR. VALERIO BREAST SPECIALIST 04/13/2015 Last Documented On 3 3:11PM ; [facility] A colonoscopy was performed 09/26/2009 Varinder BOWLES 201304/13/2015 Last Documented On 3 3:11PM ; [facility] History of a DEXA of the lateral lumbar spine was performed 06/11/2013 04/13/2015 Last Documented On 3 3:11PM ; [facility] History of Pap smear done 03/11/201203/21 Last Documented On 3 3:11PM ; [facility] History of screening mammogram was perfo rmed 05/06/2014 04/13/2015 Last Documented On 3 3:11PM ; [facility] GERD ~hyperilpidemia ~LISA/BS O DUB ENDOMETRIOSIS ~2004- Bladder ~ ~urge incont. ~status post anterior repair 04/12/2014 Last Documented On 3 3:11PM ; [facility] No recent change in medical history 03/21 Last Documented On 3 3:11PM ; [facility] Result: normal 04/12/2014 Last Documented On 3 3:11PM ; [facility] Result: normal 04/12/2014 Last Documented On 3 3:11PM ; [facility] Status post hysterectomy DUB 04/05/2013 Last Documented On 3 3:11PM ; [facility] History of menopause 04/05/2013 Last Documented On 3 3:11PM ; [facility] LMP: 06/15/1996 04/05/2013 Last Documented On 3 3:11PM ; [facility] Last pap smear date 03/11/2012 03/11/2012 Last Documented On 3 3:11PM ; [facility] History of benign essential hypertension 03/07/2011 Last Documented On 3 3:11PM ; [facility] Taking OTC medications including Mucinex 08/20/2010 Last Documented On 3 3:11PM ; [facility] History of chronic reflux esophagitis Last Documented On 3 3:11PM ; [facility] History of thyroid disorder THYROID NODU LES 01/25/2010 Last Documented On 3 3:11PM ; [facility] Para 2 01/25/2010 Last Documented On 3 3:11PM ; [facility] Vaginal delivery 01/25/2010 Last Documented On 3 3:11PM ; [facility] 2 living children 01/15/2010 Last Documented On 3 3:11PM ; [facility] A mammogram was performed 07/30/0701/15 Last Documented On 3 3:11PM ; [facility] 2 01/15/2010 Last Documented On 3 3:11PM ; [facility] Hypertension 01/15/2010 Last Documented On 3 3:11PM ; [facility] History of essential hypertension 2008 Last Documented On 3 3:11PM ; [facility] Taking medication - prescrip tion Patient currently taking Levaquin. Finished Zithromax. Tussionex helping. Proventil inhaler seems to help for a little while 04/20/2009 Last Documented On 3 3:11PM ; [facility] Taking OTC pain medication /fever. Using Tylenol 04/10/2009 Last Documented On 3 3:11PM ; [facility] History of hypertension 02/09/2009 Last Documented On 3 3:11PM ; [facility] Surgery GALBLADDER 1978 ~BLADDER 02/20 Last Documented On 3 3:11PM ; [facility] Family History Includes: Family History addressed during this encounter Description Last Updated Maternal history of diabetes mellitus Mo ther 05/02/2016 Last Documented On 3 3:11PM ; [facility] Family history of diabetes mellitus Moth er 04/13/2015 Last Documented On 3 3:11PM ; [facility] Family history of hypercholesterolemia F ather 04/13/2015 Last Documented On 3 3:11PM ; [facility] Family history of hypertension Patient, Father 04/13/2015 Last Documented On 3 3:11PM ; [facility] Family history unchanged 04/13/2015 Last Documented On 3 3:11PM ; [facility] Spouse name: DARLING 03/07/2011 Last Documented On 3 3:11PM ; [facility] First child named 01/25/2010 Last Documented On 3 3:11PM ; [facility] No family history of malignant female br east neoplasm 01/25/2010 Last Documented On 3 3:11PM ; [facility] No family history of malignant neoplasm of the large intestine 01/25/2010 Last Documented On 3 3:11PM ; [facility] No family history of malignant neoplasm of the ovary 01/25/2010 Last Documented On 3 3:11PM ; [facility] No family history of uterine cancer 05/2010 Last Documented On 3 3:11PM ; [facility] Second child named 01/25/2010 Last Documented On 3 3:11PM ; [facility] Family history of Diabetes (m) 0 Last Documented On 3 3:11PM ; [facility] Family medical history of high blood pre ssure &hyperlipidemia(F) 01/15/2010 Last Documented On 3 3:11PM ; [facility] Brother BLOCKED ARTERIES 2008 Last Documented On 3 3:11PM ; [facility] Brother HAS MS 02/09/2009 Last Documented On 3 3:11PM ; [facility] Father 02/09/2009 Last Documented On 3 3:11PM ; [facility] Heart disease 02/09/2009 Last Documented On 3 3:11PM ; [facility] Mother 02/09/2009 Last Documented On 3 3:11PM ; [facility] Review of Systems Includes: Review of [...] ctive Last Documented On 3 3:29PM ; [facility] Fish Oil Allergy THROAT, MOUTH AND EARS ITCH 04/12/2014 Active Last Documented On 3 3:29PM ; [facility] CeleBREX Allergy 02/09/2009 Active Last Documented On 3 3:29PM ; [facility] Encounters Encounter Provider Location Date Check-In Time Check-Out Time Diagnosis FOLLOW UP SHAQ Banegas [facility] 11/14/19 23 2:59PM 3:13PM Osteoarthritis Localized Primary Knee Right Insurance Includes: Active Insurance Policies Plan Name Member ID Group # Subscriber Relationship Effect grant Dates 1 - [facility]/MEDICARE ADV/[employer] [id number] BRIGIDA PRESCOTT S fede Clinical Notes Includes: Clinical Notes from this encounter * Progress note Date Encounter Last Documented by 11/14/2022 FOLLOW UP Last documented on 11/14/2022; 3:16 PM, SHAQ Banegas; [facility] Active Problems & Conditions - 285.9 - Anemia - 610.2 - Breast Fibroadenosis Chronic - pt s/p removal and all mammogram performed by Dr. Clifford at [facility] - 562.10 - Colonic Diverticulosis - 246.2 - CYST OF THYROID - pt to see ent and needle molder - 530.81 - Esophageal Reflux - I10 [...] for a little while, medication for pain [id number] /fever. Using Tylenol, and [id number]-[id number] medications including Mucinex. Tests: A mammogram was [...]
--- OUTSIDE RECORDS SUMMARY | 2025-01-05 15:13 | XMS_ITS | Clinical Summary ---
Author Organization [facility] Address [address] [place] [id number] Care Team Providers Care Cath Lab Tech Name Role Phone Jh Tena MD Unavailable [phone] Carmen Hurst MD Unavailable Reji Clarke DO Unavailable [phone] Mabel Mullins MD Primary Care Provider [phone] Vaughn Melendez MD Unavailable [phone] Frederick Burton DMD Unavailable [phone] Doris Brenner DO Unavailable [phone] Obdulio Kumar MD Unavailable Catracho Fernandez MD Unavailable [phone] El Vo MD Unavailable [phone] Pati Yang NP Unavailable [phone] Allergies Active Allergy Reactions Criticality Noted Date [...] (See comments) Medium Reaction: throat itching, swelling, Jvddudg-Suv-Nbq Reductase Inhibitors Muscle pain Medium 06/18/2019 Sulfa [...] orthopedics. Assessment & Plan (12/03/2023 12:11 PM GREY PERCHER): After they removed fluid from her right knee, there was significant pain relief and it has not recurred. She takes Tylenol as needed. She uses diclofenac gel. She also has tramadol which she rarely uses because it makes her feel woozy. Assessment & Plan (11/08/2023 11:53 AM GREY PERCHER): She developed pain and swelling in her [...] therapy. Assessment & Plan (10/29/2023 3:02 PM GREY PERCHER): We ordered a PTH. Closed fracture of proximal end of left humerus with routine healing 04/24/2023 Overview (05/12/2023): Seeing Dr. Fernandez Assessment & Plan (09/12/2023 2:55 PM GREY PERCHER): She requested a refill of tramadol to [...] weeks ago. She saw Dr. Fernandez at [facility]. Her arm is in a sling during [...] Kumar. Assessment & Plan (09/04/2023 11:41 AM GREY PERCHER): She is on Nexium twice a day. [...] 08/19/2022 Assessment & Plan (10/29/2023 3:06 PM GREY PERCHER): Potassium was slightly low in the ER recently. We requested follow-up testing to see if replacement needs to be increased. Assessment & Plan (08/26/2022 1:02 PM GREY PERCHER): Potassium is a little low, probably due to the effects of combined furosemide and hydrochlorothiazide. We will put her on a little potassium supplement. She already takes a magnesium supplement. Acute pain of right knee 06/07/2022 Assessment & Plan (09/10/2022 4:05 PM GREY PERCHER): She developed acute pain in her right [...] then went to an orthopedic surgeon in [place] who ordered an MRI. We never got [...] (08/25/2022): Added automatically from request for surgery [id number], cardiac cath on 01/31/2022, Dr. Tena: 1. [...] diet Assessment & Plan (11/23/2021 3:14 PM GREY PERCHER): With the onset of vertigo last Friday, [...] weeks. Assessment & Plan (10/29/2020 3:41 PM GREY PERCHER): About three or four days ago she [...] level. Assessment & Plan (12/28/2020 9:35 AM GREY PERCHER): Nocturnal leg cramps are improved with gabapentin. Continue same. Assessment & Plan (09/28/2020 11:41 AM GREY PERCHER): She has had a slight benefit from gabapentin in her nocturnal leg cramps. She can only take 100 mg, otherwise she is excessively sedated. Continue same. Assessment & Plan (08/24/2020 1:07 PM GREY PERCHER): She has been having cramps in her [...] (05/11/2023): Added automatically from request for surgery [id number], EGD 04/04/2020: Mild esophageal candidiasis, diffuse gastropathy with some retained food, small HH, Dr. Melendez, [facility]. Follow up endoscopy 04/03/2023, mild reactive gastropathy, [...] EGD. Assessment & Plan (12/28/2020 9:38 AM GREY PERCHER): She is on Nexium for heartburn symptoms. It does not control her abdominal bloating which could have other causes. Assessment & Plan (10/29/2020 3:42 PM GREY PERCHER): This could be causing or contributing to [...] scheduled for a right knee arthroscopy at [facility] to remove blood and control possible ongoing [...] anesthesiologist. Assessment & Plan (12/03/2023 12:10 PM GREY PERCHER): Her latest sodium is stable or even a little improved. We will continue to monitor periodically. Lab Results Component Value Date GLUCOSE 116 10/29/2023 CALCIUM 9.3 10/29/2023 SODIUM 131 (L) 10/29/2023 POTASSIUM 3.4 10/29/2023 CO2 28 10/29/2023 CHLORIDE 88 (L) 10/29/2023 BUNSER 12 10/29/2023 CREATININE 0.79 10/29/2023 Assessment & Plan (11/08/2023 11:52 AM GREY PERCHER): Labs done in the ER recently showed [...] 10/15/2023 Assessment & Plan (09/04/2023 11:43 AM GREY PERCHER): Sodium is stable or even slightly improved [...] 02/26/2023 Assessment & Plan (08/26/2022 1:03 PM GREY PERCHER): Sodium is little lower than her last [...] hands. Assessment & Plan (12/02/2021 1:59 PM GREY PERCHER): She has had problems with low-sodium in the past, attributed to a combination of hydrochlorothiazide and furosemide to control swelling in her legs and blood pressure. Systolic blood pressure is mildly elevated today. She got IV fluids in the ER at [place]. We are checking follow-up electrolytes. Consider additional [...] needed. Assessment & Plan (10/12/2020 4:30 PM GREY PERCHER): Sodium is stable but still low. It [...] today. Assessment & Plan (08/24/2020 1:06 PM GREY PERCHER): She has a mild to moderate hyponatremia, [...] obstruction. Assessment & Plan (12/28/2020 9:40 AM GREY PERCHER): For the past year or so, she [...] month. Assessment & Plan (08/26/2022 1:01 PM GREY PERCHER): She sees Dr. Tena annually. She is [...] doing. Assessment & Plan (12/28/2020 9:37 AM GREY PERCHER): There is no pitting edema in her legs. Lungs are clear. She seems to have better exercise tolerance, walking on the treadmill. Continue to monitor. Assessment & Plan (09/28/2020 11:43 AM GREY PERCHER): Diastolic heart failure is probably contributing to fluid retention and hyponatremia. Currently she seems reasonably well controlled. Oxygen saturation is normal and lungs are clear. There is some swelling in her legs but it is not severe. Continue current therapy. Assessment & Plan (08/24/2020 1:05 PM GREY PERCHER): She has no swelling in her legs. [...] therapy. Assessment & Plan (09/04/2023 11:44 AM GREY PERCHER): She takes levothyroxine. We are monitoring periodically with labs. Lab Results Component Value Date TSH 1.23 08/28/2023 Assessment & Plan (03/03/2023 1:05 PM CDT): We will check a TSH before her next visit in about six months. Lab Results Component Value Date TSH 0.74 08/19/2022 Assessment & Plan (08/26/2022 1:04 PM GREY PERCHER): She is on a stable dose of [...] 09/21/2020 Assessment & Plan (12/28/2020 9:34 AM GREY PERCHER): TSH is normal on current therapy. I do not think this is contributing to her hypothyroidism. Lab Results Component Value Date TSH 1.06 09/21/2020 Assessment & Plan (08/24/2020 1:09 PM GREY PERCHER): She is on a fairly high replacement [...] followed by DC cardioversion to NSR, 01/21/18, [facility]. Assessment & Plan (12/28/2024 7:46 PM CDT): [...] WRITTEN ON 01/14/2019 6:45 PM BY TIAN LOAZNO DO Managed by cardiology, on amiodarone 200mg qd Assessment & Plan (12/28/2024 7:41 PM CDT): >>ASSESSMENT AND PLAN FOR ATRIAL FIBRILLATION STATUS POST CARDIOVERSION (HCC) WRITTEN ON 02/17/2020 11:07 AM BY MABEL MLULINS MD She has a history of atrial [...] a feeling of palpitations. She wore another monitoring analyst and turned it in this morning. There [...] She was scheduled for an arthroscopy at [facility] which was delayed because of hyponatremia, see [...] level. Assessment & Plan (09/04/2023 11:43 AM GREY PERCHER): She is on a vitamin-D supplement and [...] hyponatremia. Assessment & Plan (09/10/2022 4:07 PM GREY PERCHER): We are referring her back to sleep specialist for reassessment of treatment. Assessment & Plan (08/24/2020 1:08 PM GREY PERCHER): She continues on CPAP. She had some [...] Assessment & Plan (01/23/2018 12:05 PM CDT): Hulbert sleepiness scale score 14 on 01/23/2018 Referred [...] colon 04/16/2015 Overview (08/25/2022): Chart entry from [facility], details lacking. Anemia 04/16/2015 Overview (08/25/2022): Mild, intermittent normocytic anemia first noted at [facility]. Assessment & Plan (03/14/2023 10:38 PM CDT): [...] morning. Assessment & Plan (09/04/2023 11:40 AM GREY PERCHER): Symptoms are controlled on Astelin and Flonase [...] months. Assessment & Plan (09/04/2023 11:43 AM GREY PERCHER): She takes Zetia. She is intolerant of [...] statins. Assessment & Plan (08/26/2022 1:03 PM GREY PERCHER): She did not tolerate statins, but is [...] months. Assessment & Plan (11/04/2017 12:01 PM GREY PERCHER): Lipid abnormalities are unchanged. Nutritional counseling was provided. and Pharmacotherapy as ordered. Lipids will be reassessed in 6 months. Chronic fibroadenosis of breast 01/25/2010 Overview (08/25/2022): Note from [facility]: s/p removal (of fibroadenoma) and all [...] efforts. Assessment & Plan (11/08/2023 11:52 AM GREY PERCHER): She is concerned about involuntary weight loss. She usually weighs over 200 lb. Lately she does not feel like eating but denies nausea or abdominal pain. Bowel habits are normal. We will see her back in a month for a follow-up. Assessment & Plan (09/04/2023 11:44 AM GREY PERCHER): We encouraged attention to her diet, and hopefully a little bit of weight loss. Assessment & Plan (03/03/2023 1:04 PM CDT): We encouraged attention to her diet, and hopefully some weight loss. Assessment & Plan (08/26/2022 1:04 PM GREY PERCHER): We encouraged attention to her diet, and [...] cardiology. Assessment & Plan (09/04/2023 11:42 AM GREY PERCHER): Blood pressure is mildly elevated. Dr. Tena [...] in office today at 154/84 (62). Admits office automation clerk recently stopped Metoprolol due to low HR. Taking Diovan, hydralyzine, and lasix as ordered. No acute findings on exam. Monitor at home daily and record bring to next office visit. Low salt diet, stay hydrated. Assessment & Plan (08/26/2022 1:01 PM GREY PERCHER): Blood pressure is in a reasonable range [...] 02/13/2022 Assessment & Plan (11/23/2021 3:16 PM GREY PERCHER): Systolic blood pressure is mildly elevated. We [...] days. Assessment & Plan (12/28/2020 9:38 AM GREY PERCHER): Blood pressure is in a reasonable range today. She gets similar or lower blood pressures at home with occasional systolics of 150 in the afternoon or evening. Continue current therapy. Assessment & Plan (09/28/2020 11:42 AM GREY PERCHER): Blood pressure is in a good range on current therapy. Continue same. Assessment & Plan (09/02/2020 2:45 PM GREY PERCHER): She is on quite a few medicines [...] cardiac concerns and blood pressure with her office automation clerk to decrease the possibility of confusion with [...] a blood pressure log to present to office automation clerk and or primary care physician for further [...] have referred her to the ER at [facility] for monoclonal antibody infusion. She will [...] needed. Assessment & Plan (12/28/2021 2:34 PM GREY PERCHER): Right Benign Positional Vertigo treated with Enrrique maneuver today Hearing and Balance testing [facility] Dr. Cortez Smith [phone] [address] [place] [address] Cetirizine 5 mg (1/2 Tablet) daily Consider Left sided ear tube placement versus imaging based on hearing and balance testing Vertigo 11/16/2021 08/26/2022 Overview (08/26/2022): Seen in [place] ER. Rx with meclizine. No recurrence as of July 2022. Saw technical document writer for this and ringing. Assessment & Plan (12/02/2021 1:57 PM GREY PERCHER): She woke up early Friday morning with pretty bad vertigo. There was associated tinnitus. She has not noticed any hearing loss. The only preceding symptom was some mild positional vertigo at the hairdresser the previous Friday. She went to the [facility] ER and had labs and a head [...] (08/22/2020): Added automatically from request for surgery [id number], see EGD, improved with treatment of Steff. [...] Nasal saline spray (Simply saline, Little Remedies, [place], [place]) 2 second sprays or 2 squeezes into [...] Follow up in one week. Speak to Switch Crew Supervisor on Friday regarding Xarelto Assessment & Plan (05/30/2020 4:18 PM CDT): Start Nasal saline spray (Simply saline, Little Remedies, [place], [place]) 2 second sprays or 2 squeezes into [...] Cardiac status will be reassessed by her office automation clerk. metoprolol xl 50 mg qd Assessment & Plan (07/16/2018 4:52 PM CDT): No chest pain today. Stable. 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 Patient has a very minimum ST depression in the lateral leads which is the same in comparison to prior EKGs. Her symptoms are minimum now. She is ruled out for of acute OR with serial troponins and EKGs. Cardiology consult [...] 06/03/2018 Assessment & Plan (12/02/2017 9:42 AM GREY PERCHER): Depo-Medrol 80mg IM x 1 now. Nebulized TX DuoNeb given. Rxs given, increase fluids, rest. Pseudophakia of both eyes 04/11/2017 Non-toxic multinodular goiter 03/05/2014 07/03/2018 Overview (01/24/2017): NONTOX MULTINODUL GOITER Chronic sinusitis 11/10/2012 11/04/2017 Overview (01/23/2017): Chronic sinusitis Thyroid nodule 02/17/2012 11/04/2017 Overview (01/23/2017): Thyroid nodule Postmenopausal 04/19/2010 02/17/2020 Non morbid obesity 04/19/2010 1 Assessment & Plan (12/28/2020 9:35 AM GREY PERCHER): Her weight is unchanged. She is trying to lose weight. I encouraged her efforts. I encouraged smaller meal sizes to deal with abdominal bloating. Assessment & Plan (10/12/2020 4:29 PM GREY PERCHER): She saw a dietitian. She did great [...] months. Assessment & Plan (08/24/2020 1:08 PM GREY PERCHER): She has joined a [facility] sponsored diet program and has lost a little bit of weight. She plans to continue her efforts which consist of portion control and staying active. Chest pain 01/23/2018 Encounters Date Type Department Care Team Description 12/29/2024 11:30 AM CDT Office Visit [facility] [address] [place] [address] Mabel Mullins MD Medicare annual wellness visit, [...] Breast cancer screening by mammogram 12/29/2024 Telephone [facility] [address] [place] [address] Mabel Mullins MD 12/24/2024 Orders Only [place] [employer] [employer] [facility] at [facility] [address] [facility] [address] [place] [address] Pati Yang NP Hypertensive heart disease with chronic diastolic congestive heart failure (HCC) (Primary Dx); Atrial fibrillation status post cardioversion (HCC) 12/23/2024 Telephone [place] [facility] at [facility] [address] [facility] [address] [place] [address] Ezequiel Orta MA 12/22/2024 Results Follow-Up [facility] [place] [facility] [address] [place] [phone] Mabel Mullins MD 12/21/2024 12:00 PM GREY PERCHER Lab [facility] [address] [place] [phone] Essential hypertension 11/08/2024 ACO Quality [facility] Accountable Care Organization [address] [place] [address] Janette Jaquez 10/11/2024 Telephone [facility] [address] [address] Franchesca Redd Successful Phone Call ([facility] cbp) from Last 3 Months Immunizations Immunization Administration [...] Normal except hemorrhoids and diverticulosis, Dr. Brooks, [facility]. BLADDER SURGERY Overactive bladder: bladder repair, details lacking. FINE NEEDLE ASPIRATION Thyroid nodules: biopsy normal, details lacking ESOPHAGOGASTRODUODENOSCOPY 04/04/2020 Mild esophageal candidiasis, diffuse gastropathy with some retained food, small HH, Dr. Melendez, [facility]. MAMMOGRAPHY 10/09/2020 Bilateral Negative, [facility]. CARDIAC CATHETERIZATION 01/20/2018 Left No high grade lesions warranting intervention, Dr. Tena, [facility]. MAMMOGRAPHY 10/10/2021 Bilateral Negative, [facility]. DEXA SCAN [...] metaplasia, no dysplasia or malignancy. Dr. Kumar, [facility]. [facility] MAMMOGRAPHY 01/12/2024 Bilateral Negative, [facility]. CARDIOVERSION 06/03/2024 N/A Dr. Tena, [facility]. KNEE ARTHROSCOPY 05/10/[address] Vo, [facility]. Medical History Medical History Date Comments Hypertension [...] (BMI) of 38.0 to 38.9 in adult (HCC) 03/12/2018 Weight fluctuates, working o n reducing. Chronic diastolic congestive heart failure (HCC) 01/19/2018 Followed by cardiology, echocardiograms. Epistaxis 06/03/2018 Saw ENT, see not e. Dysphagia 03/02/2020 Added automatica lly from request for surgery [id number], see EGD, improved with treatment of Steff. Exertional dyspnea 09/19/2019 Likely due to weight, deconditioning, diastolic dysfunction. Non morbid obesity 04/19/2010 Obesity (BMI 35.0-39.9 witho ut comorbidity) 04/19/2000 Covid-19 03/05/2022 Simultaneous flu and Covid, treated with Tamiflu and monoclonal antibody with rapid recovery. Vertigo 11/16/2021 Seen in [facility] ER. Rx with meclizine. No recurrence as of July 2022. Saw technical document writer for this and ringing. Influenza B 03/05/2022 [...] on file Legal Sex Female 12:10 AM GREY PERCHER Gender Identity Female 05/03/2020 10:38 PM CDT [...] Tdap) 05/11/2023 05/11/2013, 10/20/2002 Covid-19 Vaccine (4 - 2023-2 5 season) 2024 07/03/2021, 11/29/2020, 11/01/2020 [...] Completed 12/03/2018, 08/21 Zoster Vaccine Completed 02/21/2021, 03/2020, 07/02/2011 Colon Cancer Screening-CT Colonography Discontinued 04/03/2023, 08/03/2014 Colon Cancer Screening-DNA Stool Discontinued 04/03/20 23, 08/03/2014 Colon Cancer Screening-FIT Discontinued 04/03/2023, Colon Cancer Screening-Sigmoidoscopy Discontinued 04/03/2023, 08/03/2014 Hepatitis B Screening Completed 02/09/2024 Influenza Vaccine Completed 06/30/2024, , 08/26/2022, Additional history exists Medical Devices Implanted Type Area Informatics Physician Liaison Device Identifier Shelf Expiration Date Model / Serial / Lot Angio-Seal Evolution 6fr Vascular Closure [id number] - [id number] Implanted:Qty: 1 on 01/31/2022 by Jh Tena MD at [employer] Other - see comments Book Buyback 10/19/2022 [id number] / / [id number] Procedures Procedure Name Priority Date/Time Associated Diagnosis Comments EGFR Routine 12/21/2024 11:58 AM GREY PERCHER Essential hypertension THYROID FUNCTION CASCADE Routine 12/21/2024 11:58 AM GREY PERCHER Essential hypertension BASIC METABOLIC PANEL Routine 12/21/2024 11:58 AM GREY PERCHER Essential hypertension SCREENING MAMMOGRAM BILATERAL W VIRGILIO Schedule Routine, [...] Maintenance Results * eGFR (12/21/2024 11:58 AM GREY PERCHER) eGFR 77 >=60 mL/min/1. 73 m2 Comment: [...] was last reviewed 2021. Testing performed by: [address] [address] Blood 12/21/2024 11:5 8 AM GREY PERCHER 12/21/2024 6:26 PM GREY PERCHER Mabel Mullins MD LAB BLOOD ORDERABLES Final Re sult Performing Organization Address City/[facility]/ZIP Co de Phone Number FRANCESCA ROBINS [address] [employer] [address] * Thyroid Function Bosque (12/21/2024 11:58 AM GREY PERCHER) TSH 0.32 0.30 - 4.20 mcIUnit/mL Comment:Testing performed by : [address] [address] Blood 12/21/2024 11:5 8 AM GREY PERCHER 12/21/2024 6:10 PM GREY PERCHER Mabel Mullins MD LAB BLOOD ORDERABLES Final Re sult FRANCESCA [address] [employer] [place] [address] * (ABNORMAL) Basic metabolic panel (12/21/2024 11:58 AM GREY PERCHER) Sodium 128(L) 135 - 145 mmol/L Comment:Testing performed by : [facility], [address] [place] [address]., [address] Potassium, pl 3.6 3.3 - 4.9 mmol/L CERNER Comment:Testing performed by : [facility], [address] [place] [address]., [address] Chloride 89(L) 97 - 110 mmol/L CERNER CH Comment:Testing performed by : [facility], [address] [place] [address], [address] CO2 26 22 - 32 mmol/L CERNER CH Comment:Testing performed by : [facility], [address] [place] [address], [address] Anion gap 13 2 - 15 mmol/L CERNER CH Comment:Testing performed by : [facility], [address] [place] [address], [address] BUN 13 6 - 25 mg/dL CERNER CH Comment:Testing performed by : [address], [address] Creatinine 0.81 0.60 - 1.10 mg/dL CERNER CH Comment:Testing performed by : [address], [address] Glucose 112 70 - 199 mg/dL CERNER [...] was last revised 2022. Testing performed by: [facility], [address] [place] [address]., [address] Calcium 8.9 8.5 - 10.3 mg/dL CERNER Comment:Testing performed by : [address] [address] Blood 12/21/2024 11:5 8 AM GREY PERCHER 12/21/2024 6:10 PM GREY PERCHER Mabel Mullins MD LAB BLOOD ORDERABLES Final Re sult FRANCESCA ROBINS [address] Department [place] [address] * Screening Mammogram Bilateral W Virgilio (01/12/2024 [...] BI-RADS Category 1: Negative PATIENT LETTER SENT Mabel Mullins MD IMG MAMMO PROCEDURES Final Re sult * COLONOSCOPY (04/03/2023 8:38 AM CDT) Anatomical Region Laterality Modality Other Narrative Procedure Note Obdulio Kumar MD - 04/03/2023 8:38 AM CDT [facility] Patient Name: Brigida Ordaz Procedure Date: 04/03/2023 8:38 AM Date of : 1950 Admit Type: Outpatient Age: 72 Gender: Female Attending MD: Obdulio Kumar M.D. Room: [facility] ENDOSCOPY ROOM 2 Note Status: Finalized Patient Profile: This is a 72 year old female hx of HLD, HTN, AFib status post cardioversion on Xarelto, CAD, thyroid nodules, hypothyroidism, chronic iron deficiency anemia and chronic hyponatremia here forcolonoscopy for iron-deficiency anemia. Last nmqsqirqexi20/2014 showed hemorrhoids and mild diverticulosis. Nofamily history [...] procedure were verified by the physician, the predatory animal hunter and the environmental field services technician in the endoscopy suite. Mental Status [...] scope was passed under direct vision. TheColonoscope [id number] was introduced through the anus and advanced [...] 8:38 AM Procedure Code(s): --- Professional --- 83527, Colonoscopy, flexible; diagnostic, including collection of specimen(s) by brushing or washing, when performed (separateprocedure) --- Technical --- 80180, Colonoscopy, flexible; diagnostic, including collection of specimen(s) by brushing or washing, when performed (separateprocedure) Diagnosis Code(s): --- Professional --- K64.8, Other hemorrhoids K64.4, Residual hemorrhoidal skin tags D50.9, Iron deficiency anemia, unspecified --- Technical --- K64.8, Other hemorrhoids K64.4, Residual hemorrhoidal skin tags D50.9, Iron deficiency anemia, unspecified CPT copyright 2020 [employer]. All rights reserved. The codes documented in this report are preliminary and upon tuber machine operator helper reviewmay be revised to meet current compliance requirements. Recognized by the [employer] for promoting quality [...] F with given history of screening. Postmenopausal Informatics Physician Liaison/Model: [employer] SL (S/N 30077) CLINICAL INFORMATION: Current height: 66 inches Maximum [...] 03/05/2023 9:25 PM - Electronically signed by eLw Tiwari M.D. MF: [facility] Report ID: [id number] Reading Location: [place] [address] Procedure Note Lew Tiwari MD - 03/05/2023 EXAM DESCRIPTION: DEXA AXIAL SKELETON BONE DENSITY 1 OR MORE SITES REASON FOR STUDY: 72 y/o year old F with given history of screening. Postmenopausal Informatics Physician Liaison/Model: [email or web address] SL (S/N 32667) CLINICAL INFORMATION: Current height: 66 inches Maximum [...] Lew Tiwari M.D. MF: [place] Report ID: [id number] Reading Location: [place] [address] Mabel Mullins MD IMG DXA PROCEDURES Final Resu lt * HEPATITIS C SCREENING (02/13/2017) [facility] HEP C Normal Comment:NEGATIVE Historical Provider HEALTH MAINTENANCE Final Result from Last 3 Months or Most Recently Relevant to Health Maintenance Insurance MEDICARE SOLUTIONS MDCR HMO REF MEDICARE SOLUTIONS Advance Directives For more information, please contact: [phone] * Full Code (Latest Code Status on [...] 4:48 AM 01/22/2018 5:06 PM Care Teams Cath Lab Tech Relationship Specialty Start Date End Date Mabel Mullins MD [address] [place] [address] PCP - General Infectious Diseases 02/17/20 Jh Tena MD Consulting Physician Cardiology 01/08/18 Carmen Hurst MD Consulting Physician Neurology 01/08/18 Reji Clarke DO [address] [place] [address] Referring Physician Orthopedic Surgery 08/17/19 Vaughn Melendez MD [address] [address] Consulting Physician Gastroenterology 08/03/20 Frederick Burton DMD [address] [place] [address] Dentist Dental Bus Repair Supervisor 04/12/21 Doris Brenner DO [address] [facility] [address] [place] [address] Consulting Physician Otolaryngology 12/28/21 Obdulio Kumar MD [address] [facility] [place] [address] Consulting Physician Gastroenterology 04/03/23 [place] [address] [facility] [address] [place] [address] Consulting Physician Orthopedic Surgery 04/24/23 El Vo MD [address] [facility] [address] [facility] 10 [place] [address] Referring Physician Orthopedic Surgery 10/15/23 Pati Yang NP [address] [address] Nurse Practitioner Cardiology 03/31/24
--- OUTSIDE RECORDS SUMMARY | 2025-01-05 15:13 | XMS_ITS | Encounter Summary ---
Author Organization [facility] Address [address] [place] [address] Care Team Providers Care Test Rider Name Role Phone Cheryl Shukla MD Primary Care Provider [phone] Encounter Details Date Type Department Care Team (Late st Contact Info) Description 09/22/2008 Outpatient Historical HIS [facility] LUIS Valerio, Valeria Adrian MD [address] [facility] [address] [place] [id number] Social History Tobacco Use Types Packs/Day Years Used Date Smoking Tobacco: Never Assessed Comments Unknown Sex and Gender Information Value Date Recorded Sex Assigned at Not on file Legal Sex Female 5:40 AM AIRBORNE OPERATIONS MANAGER Gender Identity Not on file Sexual Orientation Not on file documented as of this encounter Plan of Treatment Not on file documented as of this encounter Procedures Procedure Name Priority Date/Time Associated Diagnosis Comments PATHOLOGY Routine 09/22/2008 1:37 PM AIRBORNE OPERATIONS MANAGER MAMMO BREAST SPECIMEN RT Routine 09/22/2008 1:10 PM AIRBORNE OPERATIONS MANAGER MAMMO NEEDLE LOC EA LESION RT Routine 09/22/2008 12:20 PM AIRBORNE OPERATIONS MANAGER XR CONSULTATION Routine 09/22/2008 12:20 PM AIRBORNE OPERATIONS MANAGER MAMMO DIAGNOSTIC UNI RIGHT W OR WO CAD Routine 09/22/2008 12:20 PM AIRBORNE OPERATIONS MANAGER HEMOGLOBIN AND HEMATOCRIT Stat 09/22/2008 10:55 AM AIRBORNE OPERATIONS MANAGER BASIC METABOLIC PANEL Stat 09/22/2008 10:55 AM AIRBORNE OPERATIONS MANAGER documented in this encounter Results * PATHOLOGY (09/22/2008 1:37 PM AIRBORNE OPERATIONS MANAGER) FINAL REPORT [facility] [address] [place], [place] [address] Patient: BRIGIDA ORDAZ : 1950 Procedure Date: 09/22/2008 Accession Date: 09/22/2008 Case No: [id number] Ordering Dr: VALERIA VALERIO Case types AW, BW, FW, NW and SH are performed by [facility], [place], [place] SURGICAL PATHOLOGY & NON-GYNECOLOGIC CYTOPATHOLOGY REPORT [...] A12-A13, and A14- A15 represent composite sections. [facility]/S 09.23.2008 07:09 am Microscopic: The slides are labeled [id number], Brigida Ordaz. Sections of the right breast [...] first-degree relative. Reference: Arch Pathol Lab Med 1998;122:5808-8268. CJ/MARIAN 09.26.2008 12:40 pm Staging Form: No. ELECTRONIC SIGNATURE FOR LILA MENDOZA MD- 09/26/08 02:35 pm INTERFACE SYSTEM 09/22/2008 1:37 PM AIRBORNE OPERATIONS MANAGER us Valeria Valerio MD PATHOLOGY/CYTOLOGY ORDERABLE S Final Result INTERFACE SYSTEM Refer to clinic/hospital department * MAMMO BREAST SPECIMEN RT (09/22/2008 1:10 PM AIRBORNE OPERATIONS MANAGER) Anatomical Region Laterality Modality Breast Right Other 09/22/2008 1:10 PM AIRBORNE OPERATIONS MANAGER Narrative 09/23/2008 4:42 PM AIRBORNE OPERATIONS MANAGER [facility] [address] [place], [place] [address] Admit Date: 09/22/2008 BRIGIDA ORDAZ Sex: F Admit Prov: VALERIA VALERIO Date: 1950 Primary Care Prov: CMRN: [id number] Room: [facility] SSN: [id number] IMAGING SERVICES Ordering Prov: VALERIA VALERIO Accession Number: [id number] Interpretation RIGHT BREAST NEEDLE LOCALIZATION, FOLLOW UP [...] AMK Procedure Note Viviana Rehman - 09/23/2008 [place] [address] [place], [place] [address] Admit Date: 09/22/2008 BRIGIDA ORDAZ Sex: F Admit Prov: VALERIA VALERIO Date: 1950 Primary Care Prov: CMRN: [id number] Room: [facility] N: [id number] IMAGING SERVICES Ordering Prov: VALERIA VALERIO Interpretation [...] t * XR CONSULTATION (09/22/2008 12:20 PM AIRBORNE OPERATIONS MANAGER) 09/22/2008 12:2 0 PM AIRBORNE OPERATIONS MANAGER Narrative INTERFACE SYSTEM - 10/06/2008 10:38 AM AIRBORNE OPERATIONS MANAGER [place] [address] [place], [place] [address] Admit Date: 09/22/2008 BRIGIDA ORDAZ Sex: F Admit Prov: VALERIA VALERIO Date: 1950 Primary Care Prov: CMRN: [id number] Room: [facility] SSN: [id number] IMAGING SERVICES Ordering Prov: VALERIA VALERIO Accession Number: [id number] Addendum Pathology indicates atypical lobular hyperplasia with [...] AMK Procedure Note Viviana Rehman - 10/06/2008 [place] [address] [place], [place] [address] Admit Date: 09/22/2008 BRIGIDA ORDAZ Sex: F Admit Prov: VALERIA VALERIO Date: 1950 Primary Care Prov: CMRN: [id number] Room: [facility] SSN: [id number] IMAGING SERVICES Ordering Prov: VALERIA VALERIO Addendum [...] DIGITAL DIAG UNI RIGHT (09/22/2008 12:20 PM AIRBORNE OPERATIONS MANAGER) Anatomical Region Laterality Modality Breast Right Other 09/22/2008 12:2 0 PM AIRBORNE OPERATIONS MANAGER Narrative 09/23/2008 4:42 PM AIRBORNE OPERATIONS MANAGER [place] [address] [place], [place] [address] Admit Date: 09/22/2008 BRIGIDA ORDAZ Sex: F Admit Prov: VALERIA VALERIO Date: 1950 Primary Care Prov: CMRN: [id number] [facility] [address] [place] [address] IMAGING SERVICES Ordering Prov: VALERIA VALERIO Accession Number: [id number] Interpretation RIGHT BREAST NEEDLE LOCALIZATION, FOLLOW UP [...] AMK Procedure Note Viviana Rehman - 09/23/2008 [place] [address] [place], [place] [address] Admit Date: 09/22/2008 BRIGIDA ORDAZ Sex: F Admit Prov: TEODORO VALERIA Date: 1950 Primary Care Prov: CMRN: [id number] Room: [facility] SSN: [id number] IMAGING SERVICES Ordering Prov: KINDRASHALOM VALERIA Interpretation [...] LOC EA LESION RT (09/22/2008 12:20 PM AIRBORNE OPERATIONS MANAGER) Anatomical Region Laterality Modality Breast Right Other 09/22/2008 12:2 0 PM AIRBORNE OPERATIONS MANAGER Narrative 09/23/2008 4:42 PM AIRBORNE OPERATIONS MANAGER [place] [address] [place], [place] [address] Admit Date: 09/22/2008 BRIGIDA ORDAZ Sex: F Admit Prov: VALERIA VALERIO Date: 1950 Primary Care Prov: CMRN: [id number] [facility]: [id number] IM[facility]ING SERVICES Ordering Prov: VALERIA VALERIO Accession Number: [id number] Interpretation RIGHT BREAST NEEDLE LOCALIZATION, FOLLOW UP [...] AMK Procedure Note Viviana Rehman - 09/23/[address] [address] Admit Date: 09/22/2008 BRIGIDA ORDAZ Sex: F Admit Prov: VALERIA VALERIO Date: 1950 Primary Care Prov: CMRN: [id number] Room: [facility] SSN: [id number] IMAGING SERVICES Ordering Prov: VALERIA VALERIO Interpretation [...] * BASIC METABOLIC PANEL (09/22/2008 10:55 AM AIRBORNE OPERATIONS MANAGER) GLUCOSE 97 65 - 99 mg/dL [facility] SODIUM 136 135 - 145 mmol/L [facility] CALCIUM 9.5 8.6 - 10.2 mg/dL [facility] CO2 23 22 - 30 mmol/L [facility] POTASSIUM 3.9 3.5 - 4.9 mmol/L [facility] BUN 10 6 - 20 mg/dL [facility] CREATININE 0.61 0.51 - 0.95 mg/dL [facility] CHLORIDE 101 96 - 108 mmol/L [facility] GFR, >60 >=60 mL/min/1.7 sq meter [facility] GFR >60 >=60 mL/min/1.7 sq meter [facility] Comment: Modification of Diet in Renal Disease (MDRD) study formula. Estimated GFR rate interpretative information for both Americans and non- Americans is available on the [facility] Intranet at: [email or web address] Select: Lab Policies and Procedures Select: Reference Ranges - GFR Blood specimen (specimen) 09/22/2008 10:55 AM AIRBORNE OPERATIONS MANAGER 09/22/2008 11:09 AM AIRBORNE OPERATIONS MANAGER Valeria Valerio MD CHEMISTRY ORDERABLES Edited Performing Organization Address [facility] de Phone Number INTERFACE SYSTEM Refer to clinic/hospital department [facility] CLIA# [id number] [address] [place] [address] * HEMOGLOBIN AND HEMATOCRIT (09/22/2008 10:55 AM AIRBORNE OPERATIONS MANAGER) HEMOGLOBIN 13.8 11.8 - 14.8 g/dL [facility] HEMATOCRIT 40.9 35.5 - 44.0 % [facility] Blood specimen (specimen) 09/22/2008 10:55 AM AIRBORNE OPERATIONS MANAGER 09/22/2008 11:09 AM AIRBORNE OPERATIONS MANAGER Narrative INTERFACE SYSTEM - 09/22/2008 11:33 AM AIRBORNE OPERATIONS MANAGER [id number] Valeria Valerio MD HEMATOLOGY ORDERABLES Final Result Performing Organization Address [facility] de Phone Number INTERFACE SYSTEM Refer to clinic/hospital department [facility] CLIA# [id number] [address] [place] [address] documented in this encounter Visit Diagnoses Not on filedocumented in this encounter Care Teams Test Rider Relationship Specialty Start Date End Date Cheryl Shukla MD PCP - General Internal Medicine 08/21/12 documented as of this encounter
--- OUTSIDE RECORDS SUMMARY | 2025-01-05 15:13 | XMS_ITS | Encounter Summary ---
Author Organization [facility] Address [address] [place] [address] Phone Care Team Providers Care Sports Writer Name Role Phone Jh Tena MD Unavailable [phone] Carmen Hurst MD Unavailable Luis Alberto Beauchamp MD Unavailable [phone] Reji Clarke DO Unavailable [phone] Nathan Cross MD Primary Care Provider [phone] Vaughn Melendez MD Unavailable [phone] Frederick Burton DMD Unavailable [phone] Doris Brenner DO Unavailable [phone] Obdulio Kumar MD Unavailable Catracho Fernandez MD Unavailable [phone] El Vo MD Unavailable [phone] Pati Yang NP Unavailable [phone] Encounter Details Date Type Department Care Team (Late st Contact Info) Description 06/18/2022 Orders Only [facility] [address] [place] [address] Scanning, Provider Social History Tobacco [...] on file Legal Sex Female 12:10 AM SLOT FLOORPERSON Gender Identity Female 05/03/2020 10:38 PM CDT [...] documented as of this encounter Care Teams Sports Writer Relationship Specialty Start Date End Date Nathan Cross MD [address] [place] [address] PCP - General Infectious Diseases 02/17/20 Jh Tena MD Consulting Physician Cardiology 01/08/18 Carmen Hurst MD Consulting Physician Neurology 01/08/18 Luis Alberto Beauchamp MD [address] [facility] [address] [place] [address] Consulting Physician Endocrinology 06/18/19 02/12/24 Reji Clarke DO [address] [place] [address] Referring Physician Orthopedic Surgery 08/17/19 Vaughn Melendez MD 1 [facility] [address] [place] [address] Consulting Physician Gastroenterology 08/03/20 Frederick Burton DMD [address] [place] [address] Dentist Dental Nurse Educator 04/12/21 Doris Brenner DO [address] [place] [address] [address] [address] Consulting Physician Otolaryngology 12/28/21 Obdulio Kumar MD [address] [place] [address] [address] [place] [address] Consulting Physician Gastroenterology 04/03/23 [place] [address] [address] Consulting Physician Orthopedic Surgery 04/24/23 El Vo MD [address] [address] Referring Physician Orthopedic Surgery 10/15/23 Pati Yang NP [address] [address] Nurse Practitioner Cardiology 03/31/24 documented as of this encounter
--- OUTSIDE RECORDS SUMMARY | 2025-01-05 15:13 | XMS_ITS | Clinical Summary ---
Author Organization [facility] Address [address] [place] [address] Phone Care Team Providers Care Education Liaison Name Role Phone MILENA QUIROGA MD Unavailable [phone] MABEL MULLINS Primary Care Provider [phone] Reason for Visit and Chief Complaint * PHONE CALL Problems Includes: Problems addressed during this encounter and other active Problems All Visits Onset Date Resolved Date Provider Condition S tatus Osteoarthritis Localized Primary Knee Right 09/27/2022 SHAQ Banegas Active Last Documented On 2 10:05AM ; [facility] Joint Pain in the Right Knee on the Inner Side 06/14/2022 HSAQ Banegas Active Last Documented On 2 1:24PM ; [facility] Anemia 04/16/2015 MAY BRUNO RN JN Active Last Documented On 5 1:16PM ; [facility] Colonic Diverticulosis 04/16/2015 MAY BRUNO RN JN Active Last Documented On 5 1:15PM ; [facility] History of Prior Surgery: Stent 04/12/2014 LEAH BRUNO RN JN Active Last Documented On 4 8:44AM ; [facility] Note: Unchanged History of Hysterectomy 04/05/2013 MAY Landeros RN JN Active Last Documented On 3 1:24PM ; [facility] Note: Unchanged URGE INCONTINENCE 03/07/2011 CHRISSIE ROSADO M.D. Active Last Documented On 1 10:51AM ; [facility] Breast Fibroadenosis Chronic 01/25/2010 MAY BRUNO RN WHN P BC Active Last Documented On 04/13/2015 8:29AM ; [facility] Note: pt s/p removal and all mammogram p erformed by Dr. Clifford at [facility] CYST OF THYROID 01/25/2010 CHRISSIE RODRIGUEZ M.D. Active Last Documented On 01/25/2010 1:41PM ; [facility] Note: pt to see ent and onion topper Esophageal Reflux 01/15/2010 DARSHANA TORRES MD Active Last Documented On 0 10:38PM ; [facility] Hyperlipidemia 02/09/2009 DARSHANA TORRES MD Active Last Documented On 0 10:38PM ; [facility] Essential Hypertension Benign 02/09/2009 DARSHANA TORRES MD Active Last Documented On 0 10:38PM ; [facility] Plan of Treatment Pending Tests Order Diagnosis Results Due Ordering P rovider Pain Management CPT - PM Referrals Pain Management Pain in left leg 01/22/23 SHAQ Banegas Last Documented On 3 4:08PM ; [facility] Assessments Includes: Assessments from this encounter No [...] On 06/14/2022 1:28PM By Ira ALVA ; [facility] hydrALAZINE HCl 100 MG Oral Tablet 06/14/2022 Provid er: Diagnosis: Last Documented On 06/14/2022 1:15PM By MARCY BHAT LPN ; [facility] Gabapentin 100 MG Oral Capsule 06/14/2022 Provider: Diagnosis: Last Documented On 06/14/2022 1:15PM By MARCY BHAT LPN ; [facility] Valsartan-hydroCHLOROthiazide 320-25 MG Oral Tablet Provider: Diagnosis: Last Documented On 06/14/2022 1:12PM By MARCY BHAT LPN ; [facility] NexIUM 40 MG Oral Capsule Delayed Release 06/14/2022 Provider: Diagnosis: Last Documented On 06/14/2022 1:12PM By MARCY BHAT LPN ; [facility] Furosemide 40 MG Oral Tablet 06/14/2022 Provider: Diagnosis: Last Documented On 06/14/2022 1:11PM By MARCY BHAT LPN ; [facility] Amiodarone HCl 200 MG Oral Tablet 06/14/2022 Provide r: Diagnosis: Last Documented On 06/14/2022 1:10PM By MARCY BHAT LPN ; [facility] Xarelto 20 MG Oral Tablet 06/14/2022 Provider: Diagnosis: Last Documented On 06/14/2022 1:10PM By MARCY BHAT LPN ; [facility] Calcium 600 MG Tablet 05/02/2016 Provider: Diagnosis: Last Documented On 05/02/2016 2:58PM By CLAUDIA REYES MA ; [facility] Multi Vitamin Daily Tablet 05/02/2016 Provider: Diagnosis: Last Documented On 05/02/2016 2:58PM By CLAUDIA REYES MA ; [facility] Irbesartan 300 MG Tablet 05/02/2016 Provider: Diagnosis: Last Documented On 05/02/2016 2:58PM By CLAUDIA REYES MA ; [facility] Metoprolol Succinate ER 25 MG Tablet Extended Re lease 24 Hour 05/02/2016 Provider: Diagnosis: Last Documented On 05/02/2016 2:57PM By CLAUDIA REYES MA ; [facility] Levothyroxine Sodium 175 MCG Tablet 05/02/2016 Provi blu: Diagnosis: Last Documented On 05/02/2016 2:57PM By CLAUDIA REYES MA ; [facility] oxyBUTYnin Chloride 5 MG OR TABS 04/12/2014 Provider : Diagnosis: Last Documented On 04/12/2014 8:27AM By AIRAM SARAVIA ; [facility] Livalo 1 MG OR TABS 04/12/2014 Provider: Diagnosis: Last Documented On 04/12/2014 8:27AM By AIRAM SARAVIA ; [facility] Medications Administered Includes: Administered Medications [...] ctive Last Documented On 3 3:29PM ; [facility] Fish Oil Allergy THROAT, MOUTH AND EARS ITCH 04/12/2014 Active Last Documented On 3 3:29PM ; [facility] CeleBREX Allergy 02/09/2009 Active Last Documented On 3 3:29PM ; [facility] Encounters Encounter Provider Location Date Check-In Time Check-Out Time Diagnosis * PHONE CALL SHAQ Banegas [facility] 3 12:42PM 11:59PM Insurance Includes: Active Insurance Policies Plan Name Member ID Group # Subscriber Relationship Effect grant Dates 1 - [facility]/MEDICARE ADV/[employer] [id number] MONAE lieberman Clinical Notes Includes: Clinical Notes from this encounter No Clinical Notes Recorded
--- OUTSIDE RECORDS SUMMARY | 2025-01-05 15:13 | XMS_ITS | Clinical Summary ---
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 Name Role Phone MILENA QUIROGA MD Unavailable [phone] MABEL MULLINS Primary Care Provider [phone] Reason for Visit and Chief Complaint visit for: Right Knee Pain - The Chief Complaint is: PRESENTS FOR GELSYN-3 INJ RT KNEE #1 OF3 Problems Includes: Problems addressed during this encounter and other active Problems Current Visit Onset Date Resolved Date Provider Conditio n Status Osteoarthritis Localized Primary Knee Right 09/27/2022 SHAQ Banegas Active Last Documented On 2 10:05AM ; [facility] History of Prior Surgery: Stent 04/12/2014 LEAH BRUNO RN JN Active Last Documented On 4 8:44AM ; [facility] Note: Unchanged History of Hysterectomy 04/05/2013 MAY Landeros RN JN Active Last Documented On 3 1:24PM ; [facility] Note: Unchanged Past Visits Onset Date Resolved Date Provider Condition Status Joint Pain in the Right Knee on the Inner Side 06/14/2022 SHAQ Banegas Active Last Documented On 2 1:24PM ; [facility] Anemia 04/16/2015 MAY BRUNO RN JN [place] Active Last Documented On 5 1:16PM ; [facility] Colonic Diverticulosis 04/16/2015 MAY BOSTON Active Last Documented On 5 1:15PM ; [facility] URGE INCONTINENCE 03/07/2011 CHRISSIE RSOADO M.D. Active Last Documented On 1 10:51AM ; [facility] Breast Fibroadenosis Chronic 01/25/2010 MAY BRUNO RN WHN P BC Active Last Documented On 04/13/2015 8:29AM ; [facility] Note: pt s/p removal and all mammogram p erformed by Dr. Clifford at [facility] CYST OF THYROID 01/25/2010 CHRISSIE RODRIGUEZ M.D. 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 This was the first injection in the series. She will follow up next week for the second injection in the series. - Last Documented On 11/07/2022 3:41PM ; [facility] Instructions to patient Intervention and counseling on cessation of tobacco use Last Documented On 3 3:29PM ; [facility] Assessments Includes: Assessments from this encounter Findings - [M17.11 - Unilateral primary osteoarthritis, right knee] Localized primary osteoarthritis of right knee - Last Documented On 11/07/2022 3:41PM ; [facility] Instructions Includes: Instructions from this encounter Instructions to patient Intervention and counseling on cessation of tobacco use Last Documented On 3 3:29PM ; [facility] Medical Equipment - Implanted Devices [...] On 06/14/2022 1:28PM By Ira ALVA ; [facility] hydrALAZINE HCl 100 MG Oral Tablet 06/14/2022 Provid er: Diagnosis: Last Documented On 06/14/2022 1:15PM By MARCY BHAT LPN ; [facility] Gabapentin 100 MG Oral Capsule 06/14/2022 Provider: Diagnosis: Last Documented On 06/14/2022 1:15PM By MARCY BHAT LPN ; [facility] Valsartan-hydroCHLOROthiazide 320-25 MG Oral Tablet Provider: Diagnosis: Last Documented On 06/14/2022 1:12PM By MARCY BHAT LPN ; [facility] NexIUM 40 MG Oral Capsule Delayed Release 06/14/2022 Provider: Diagnosis: Last Documented On 06/14/2022 1:12PM By MARCY BHAT LPN ; [facility] Furosemide 40 MG Oral Tablet 06/14/2022 Provider: Diagnosis: Last Documented On 06/14/2022 1:11PM By MARCY BHAT LPN ; [facility] Amiodarone HCl 200 MG Oral Tablet 06/14/2022 Provide r: Diagnosis: Last Documented On 06/14/2022 1:10PM By MARCY BHAT LPN ; [facility] Xarelto 20 MG Oral Tablet 06/14/2022 Provider: Diagnosis: Last Documented On 06/14/2022 1:10PM By MARCY BHTA LPN ; [facility] Calcium 600 MG Tablet 05/02/2016 Provider: Diagnosis: Last Documented On 05/02/2016 2:58PM By CLAUDIA REYES MA ; [facility] Multi Vitamin Daily Tablet 05/02/2016 Provider: Diagnosis: Last Documented On 05/02/2016 2:58PM By CLAUDIA REYES MA ; [facility] Irbesartan 300 MG Tablet 05/02/2016 Provider: Diagnosis: Last Documented On 05/02/2016 2:58PM By CLAUDIA REYES MA ; [facility] Metoprolol Succinate ER 25 MG Tablet Extended Re lease 24 Hour 05/02/2016 Provider: Diagnosis: Last Documented On 05/02/2016 2:57PM By CLAUDIA REYES MA ; [facility] Levothyroxine Sodium 175 MCG Tablet 05/02/2016 Provi blu: Diagnosis: Last Documented On 05/02/2016 2:57PM By CLAUDIA REYES MA ; [facility] oxyBUTYnin Chloride 5 MG OR TABS 04/12/2014 Provider : Diagnosis: Last Documented On 04/12/2014 8:27AM By AIRAM SARAVIA ; [facility] Livalo 1 MG OR TABS 04/12/2014 Provider: Diagnosis: Last Documented On 04/12/2014 8:27AM By AIRAM SARAVIA ; [facility] Past Medications on file Terconazole 0.8% [facility] 04/05/2013 - 04/14/2013 Provider: MAY BRUNO RN [facility] Diagnosis: CANDIDAL VULVOVA GINITIS 1 PAULA IN VAGINA EVERY NIGHT X 3 APPLY BID TO EXTERNAL AREA Last Documented On 3 1:26PM By [facility] ; [facility] Diflucan 150 MG OR TABS 03/13/2012 - 03/14/2012 Provider: CHRISSIE ROSADO M.D. Diagnosis: CANDIDAL VULVOVA GINITIS 1 po x 1 day Last Documented On 2 12:45PM By DR. CHRISSIE ROSADO ; [facility] oxyBUTYnin Chloride 5 MG OR TABS 07/01/2011 - 12/28/2011 Provider: DARSHANA KAPOOR MD Diagnosis: Last Documented On 1 12:11AM By DARSHANA TORRES MD ; [facility] Aciphex 20 MG OR TBEC 05/27/2011 - 08/25/2011 Provider : MERY KAUFFMAN PA-C Diagnosis: Last Documented On 1 4:37PM By MERY KAUFFMAN PA-C ; [facility] Lisinopril-hydroCHLOROthiazi de 20-12.5 MG TABS 04/29/2011 - 08/27/2011 Provider: STEVEN FLORES PA-C Diagnosis: 1 qd #30 Last Documented On 04/29/2011 12:46PM By STEVEN FLORES PA-C ; [facility] Carbinoxamine Maleate 4 MG OR TABS 03/29/2011 - 05/28/2011 Provider: DARSHANA TORRES MD Diagnosis: ALLERGIC RHINITI S NOS Last Documented On 03/29/2011 1:37PM By Rosy ALVA ; [facility] Oxytrol 3.9 MG/24HR TD PTTW 03/07/2011 - 05/06/2011 Provider: CHRISSIE MILLER ON Ubaldo Diagnosis: URGE INCONTINENC E change patch q 72 hrs Last Documented On 1 10:56AM By DR. CHRISSIE ROSADO ; [facility] NexIUM 40 MG OR CPDR 03/01/2011 - 03/31/2011 Provider: STEVEN FLORES PA-C Diagnosis: Last Documented On 03/01/2011 9:52AM By STEVEN FLORES PA-C ; [facility] Flonase 50 MCG/ACT NA SUSP 11/15/2010 - 12/15/2010 Provider: JULES Banegas Diagnosis: ACUTE SINUSITIS NOS 2 sprays each nostril qd Last Documented On 11/15/2010 3:45PM By JULES MCCARTHY PA-C ; [facility] Zithromax Z-Kash 250 MG OR TABS 11/15/2010 - 11/20/2010 Provider: JULES Banegas Diagnosis: ACUTE SINUSITIS NOS Last Documented On 11/15/2010 3:12PM By JULES MCCARTHY PA-C ; [facility] Cefprozil 500 MG OR TABS 10/25/2010 - 11/04/2010 Provi blu: STEVEN FLORES PA-C Diagnosis: Last Documented On 10/25/2010 10:11AM By STEVEN FLORES PA-C ; [facility] Augmentin 875-125 MG OR TABS 09/11/2010 - 09/21/2010 P rovider: STEVEN FLORES PA-C Diagnosis: Last Documented On 09/11/2010 11:00AM By STEVEN FLORES PA-C ; [facility] Valtrex 1 GM OR TABS 08/20/2010 - 08/21/2010 Provider: STEVEN FLORES PA-C Diagnosis: HERPES SIMPLEX N OS 2 tabs po now, repeat in 12 hours Last Documented On 08/20/2010 5:51PM By STEVEN FLORES PA-C ; [facility] Levaquin 750 MG OR TABS 08/20/2010 - 08/25/2010 Provid er: STEVEN FLORES PA-C Diagnosis: BRONCHITIS NOS Last Documented On 08/20/2010 5:51PM By STEVEN FLORES PA-C ; [facility] Tussionex Pennkinetic ER 10-8 MG/5ML OR LQCR 08/20/2010 - 09/19/2010 Provider: STEVEN Banegas Diagnosis: BRONCHITIS NOS one tsp po BID PRN Last Documented On 08/20/2010 5:51PM By STEVEN FLORES PA-C ; [facility] Simvastatin 20 MG OR TABS 06/27/2010 - 12/24/2010 Prov ider: STEVEN FLORES PA-C Diagnosis: Last Documented On 06/27/2010 12:04PM By STEVEN FLORES PA-C ; [facility] Flonase 50 MCG/ACT NA SUSP 07/21/2009 - 08/20/2009 Pro vider: TANNER MYERS PA-C Diagnosis: 2 sprays q nare qd Last Documented On 07/21/2009 1:27PM By TANNER MYERS ; [facility] [place] 180 MG OR TABS 07/21/2009 - 08/20/2009 Provide r: TANNER MYERS PA-C Diagnosis: Last Documented On 07/21/2009 1:27PM By TANNER MYERS ; [facility] Protonix 40 MG OR TBEC 07/07/2009 - 07/17/2009 Provider: DARSHANA KAPOOR MD Diagnosis: REFLUX ESOPHAGIT IS Last Documented On 9 9:04AM By DARSHANA TORRES MD ; [facility] Medrol (Kash) 4 MG OR TABS 07/07/2009 - 07/13/2009 Prov ider: DARSHANA TORRES MD Diagnosis: COUGH as directed Last Documented On 9 9:04AM By DARSHANA TORRES MD ; [facility] Lisinopril-hydroCHLOROthiazi de 20-12.5 MG TABS 07/07/2009 - 08/06/2009 Provider: DARSHANA HEATON M.D. Diagnosis: Last Documented On 07/07/2009 8:34AM By Rosy ALVA ; [facility] Xyzal 5 MG OR TABS 06/19/2009 - 2009 Provider: STEVEN FLORES PA-C Diagnosis: DRUG ALLERGY NEC Last Documented On 06/19/2009 9:49PM By STEVEN FLORES PA-C ; [facility] [place] 180 MG OR TABS 06/09/2009 - 12/06/2009 Provide r: STEVEN FLORES PA-C Diagnosis: Last Documented On 06/09/2009 12:56PM By STEVEN FLORES PA-C ; [facility] oxyBUTYnin Chloride 5 MG OR TABS 06/03/2009 - 07/03/20 Provider: Diagnosis: Last Documented On 07/05/2009 11:25AM By Jonny Lamb ; [facility] Advair Diskus 250-50 [facility]CG[facility] 05/13/2009 - 06/10/2009 Provider: TANNER GRIFFITH PA-C Diagnosis: COUGH Last Documented On 05/13/2009 9:31AM By TANNER MYERS ; [facility] Ventolin HFA 108 (90 Base) MCG/ACT IN [facility]ERS 05/13/2009 - 06/12/2009 Provider: TANNER GRIFFITH PA-C Diagnosis: COUGH 2 puffs q 4-6 hours prn. Last Documented On 05/13/2009 9:31AM By TANNER MYERS ; [facility] Singulair 10 MG OR TABS 05/05/2009 - 05/19/2009 Provider: STEVEN Banegas Diagnosis: PNEUMONIA, ORGAN ISM NOS Last Documented On 05/05/2009 4:06PM By STEVEN FLORES PA-C ; [facility] Advair Diskus 100-50 MCG/DOSE IN [facility] 04/20/2009 - 05/18/2009 Provider: STEVEN Banegas Diagnosis: BRONCHITIS NOS one puff twice a day Last Documented On 04/20/2009 9:43AM By STEVEN FLORES PA-C ; [facility] predniSONE 20 MG OR TABS 04/20/2009 - 05/02/2009 Provi blu: STEVEN FLORES PA-C Diagnosis: BRONCHITIS NOS 3 x 3 d, 2 x 3d, 1x3d, 1/2 x 3d then d/c Last Documented On 04/20/2009 9:43AM By STEVEN FLORES PA-C ; [facility] Tussionex Pennkinetic ER 10-8 MG/5ML OR LQCR 04/20/2009 - 05/20/2009 Provider: STEVEN Banegas Diagnosis: BRONCHITIS NOS one tsp twice a day PRN Last Documented On 04/20/2009 9:43AM By STEVEN FLORES PA-C ; [facility] Proventil HFA 108 (90 Base) MCG/ACT IN AERS 04/10/2009 - 05/10/2009 Provider: STEVEN [place] Diagnosis: ACUTE BRONCHITIS 2 puffs every 4-6 hours PRN Last Documented On 04/10/2009 11:51AM By STEVEN FLORES PA-C ; [facility] Tessalon Perles 100 MG OR CAPS 04/10/2009 - 05/10/2009 Provider: STEVEN Banegas Diagnosis: ACUTE BRONCHITIS 1-2 tabs tid PRN Last Documented On 04/10/2009 11:51AM By STEVEN FLORES PA-C ; [facility] Zithromax Z-Kash 250 MG OR TABS 04/10/2009 - 04/15/2009 Provider: STEVEN Banegas Diagnosis: ACUTE BRONCHITIS as directed Last Documented On 04/10/2009 11:51AM By STEVEN FLORES PA-C ; [facility] Simvastatin 20 MG OR TABS 12/30/2008 - 06/28/2009 Prov ider: Diagnosis: Last Documented On 02/09/2009 2:46PM By RACQUEL JIMENEZ ; [facility] Medications Administered Includes: Administered Medications from this encounter No Administered Medications Recorded Vital Signs Includes: Vital Signs from this encounter Vital Name 11/07/2022 03:29P Blood Pressure Sitting (mmHg) 116/72 Height (in) 66.5 Last Documented: On 11/07/2022 3:29PM ; [facility] Results Includes: Results discussed during this encounter No Results Recorded For Specified Dates History of Present Illness Includes: History of Present Illness from this encounter HPI BRIGIDA RPESCOTT is a 72 year old female. - [...] 06/14/2022 Last Documented On 3 3:29PM ; [facility] Personal history plans to retire 10/05 0 05/27/2017 Last Documented On 3 3:29PM ; [facility] Alcohol use: 2 drinks or less per day RA RELY 05/27/2017 Last Documented On 3 3:29PM ; [facility] Education history 05/27/2017 Last Documented On 3 3:29PM ; [facility] In monogamous relationship 05/27/2017 Last Documented On 3 3:29PM ; [facility] Marital history 05/27/2017 Last Documented On 3 3:29PM ; [facility] Non-smoker 05/27/2017 Last Documented On 3 3:29PM ; [facility] Sexually active 05/27/2017 Last Documented On 3 3:29PM ; [facility] Smoking status : Never smoker 05/27/2017 Last Documented On 3 3:29PM ; [facility] Social history unchanged 05/27/2017 Last Documented On 3 3:29PM ; [facility] Currently 05/02/2016 Last Documented On 3 3:29PM ; [facility] Educational level 05/02/2016 Last Documented On 3 3:29PM ; [facility] Not using alcohol 05/02/2016 Last Documented On 3 3:29PM ; [facility] Procedures and Surgical History Includes: Procedures from this encounter Procedures Code Diagnosis Performing Provider Service L ocation Service Date intervention and counseling on cessation of tobacco use 4000F Last Documented On 3 3:29PM ; [facility] use of tobacco assessment performed 1000F Last Documented On 3 3:29PM ; [facility] patient screened for future fall risk: documentation of any fall with injury in past year 1100F Last Documented On 3 3:29PM ; [facility] review of medications documented 1160F Last Documented On 3 3:40PM ; [facility] encouragement to exercise Last Documented On 3 3:40PM ; [facility] Informed consent obtained Ri s and [...] obtained Last Documented On 3 3:37PM ; [facility] Sodium Hyaluronate, 5 mg for intra-articular injection The right knee was prepped in aseptic technique. I injected Gelsyn viscosupplementation into the right knee using a 22 gauge 1-10/21 needle. Patient tolerated the procedure well and post procedure showed no signs of complications. Patient will be seen for the continuation of the series [id number] Last Documented On 3 3:37PM ; [facility] Surgical History Last Updated Surgical / procedural histor y SINUS SURGERY 11/02 ~THYROIDECTOMY 08/2015 benign nodules 05/02/2016 Last Documented On 3 3:29PM ; [facility] Surgical history unchanged 04/13/2015 Last Documented On 3 3:29PM ; [facility] History of total abdominal hysterectomy 04/12/2014 Last Documented On 3 3:29PM ; [facility] History of hysterectomy 06/15/19962012 Last Documented On 3 3:29PM ; [facility] Bilateral salpingo-oophorectomy 03/11/20 Last Documented On 3 3:29PM ; [facility] Breast Biopsy 03/07/2011 Last Documented On 3 3:29PM ; [facility] Stent 01/24/2010 Last Documented On 3 3:29PM ; [facility] History of cholecystectomy 01/24/2010 Last Documented On 3 3:29PM ; [facility] Medical History Includes: Medical History addressed during this encounter Description Last Updated Last mammogram date: 08/201605/27/2017 Last Documented On 3 3:29PM ; [facility] PRIMARY CARE PROVIDER : Dr. Cheryl Shukla ~ DR. LISA JOY ~DR. VALERIO BREAST SPECIALIST 04/13/2015 Last Documented On 3 3:29PM ; [facility] A colonoscopy was performed 09/26/2009 Varinder BOWLES 201304/13/2015 Last Documented On 3 3:29PM ; [facility] History of a DEXA of the lateral lumbar spine was performed 06/11/2013 04/13/2015 Last Documented On 3 3:29PM ; [facility] History of Pap smear done 03/11/201203/21 Last Documented On 3 3:29PM ; [facility] History of screening mammogram was perfo rmed 05/06/2014 04/13/2015 Last Documented On 3 3:29PM ; [facility] GERD ~hyperilpidemia ~LISA/BS O DUB ENDOMETRIOSIS ~2004- Bladder ~ ~urge incont. ~status post anterior repair 04/12/2014 Last Documented On 3 3:29PM ; [facility] No recent change in medical history 03/21 Last Documented On 3 3:29PM ; [facility] Result: normal 04/12/2014 Last Documented On 3 3:29PM ; [facility] Result: normal 04/12/2014 Last Documented On 3 3:29PM ; [facility] Status post hysterectomy DUB 04/05/2013 Last Documented On 3 3:29PM ; [facility] History of menopause 04/05/2013 Last Documented On 3 3:29PM ; [facility] LMP: 06/15/1996 04/05/2013 Last Documented On 3 3:29PM ; [facility] Last pap smear date 03/11/2012 03/11/2012 Last Documented On 3 3:29PM ; [facility] History of benign essential hypertension 03/07/2011 Last Documented On 3 3:29PM ; [facility] Taking OTC medications including Mucinex 08/20/2010 Last Documented On 3 3:29PM ; [facility] History of chronic reflux esophagitis Last Documented On 3 3:29PM ; [facility] History of thyroid disorder THYROID NODU LES 01/25/2010 Last Documented On 3 3:29PM ; [facility] Para 2 01/25/2010 Last Documented On 3 3:29PM ; [facility] Vaginal delivery 01/25/2010 Last Documented On 3 3:29PM ; [facility] 2 living children 01/15/2010 Last Documented On 3 3:29PM ; [facility] A mammogram was performed 07/30/0701/15 Last Documented On 3 3:29PM ; [facility] 2 01/15/2010 Last Documented On 3 3:29PM ; [facility] Hypertension 01/15/2010 Last Documented On 3 3:29PM ; [facility] History of essential hypertension 2008 Last Documented On 3 3:29PM ; [facility] Taking medication - prescrip tion Patient currently taking Levaquin. Finished Zithromax. Tussionex helping. Proventil inhaler seems to help for a little while 04/20/2009 Last Documented On 3 3:29PM ; [facility] Taking OTC pain medication /fever. Using Tylenol 04/10/2009 Last Documented On 3 3:29PM ; [facility] History of hypertension 02/09/2009 Last Documented On 3 3:29PM ; [facility] Surgery GALBLADDER 1978 ~BLADDER 02/20 Last Documented On 3 3:29PM ; [facility] Family History Includes: Family History addressed during this encounter Description Last Updated Maternal history of diabetes mellitus Mo ther 05/02/2016 Last Documented On 3 3:29PM ; [facility] Family history of diabetes mellitus Moth er 04/13/2015 Last Documented On 3 3:29PM ; [facility] Family history of hypercholesterolemia F ather 04/13/2015 Last Documented On 3 3:29PM ; [facility] Family history of hypertension Patient, Father 04/13/2015 Last Documented On 3 3:29PM ; [facility] Family history unchanged 04/13/2015 Last Documented On 3 3:29PM ; [facility] Spouse name: DARLING 03/07/2011 Last Documented On 3 3:29PM ; [facility] First child named 01/25/2010 Last Documented On 3 3:29PM ; [facility] No family history of malignant female br east neoplasm 01/25/2010 Last Documented On 3 3:29PM ; [facility] No family history of malignant neoplasm of the large intestine 01/25/2010 Last Documented On 3 3:29PM ; [facility] No family history of malignant neoplasm of the ovary 01/25/2010 Last Documented On 3 3:29PM ; [facility] No family history of uterine cancer 05/2010 Last Documented On 3 3:29PM ; [facility] Second child named 01/25/2010 Last Documented On 3 3:29PM ; [facility] Family history of Diabetes (m) 0 Last Documented On 3 3:29PM ; [facility] Family medical history of high blood pre ssure &hyperlipidemia(F) 01/15/2010 Last Documented On 3 3:29PM ; [facility] Brother BLOCKED ARTERIES 2008 Last Documented On 3 3:29PM ; [facility] Brother HAS MS 02/09/2009 Last Documented On 3 3:29PM ; [facility] Father 02/09/2009 Last Documented On 3 3:29PM ; [facility] Heart disease 02/09/2009 Last Documented On 3 3:29PM ; [facility] Mother 02/09/2009 Last Documented On 3 3:29PM ; [facility] Review of Systems Includes: Review [...] Active Last Documented On 3 3:29PM ; [facility] Encounters Encounter Provider Location Date Check-In Time Check-Out Time Diagnosis FOLLOW UP SHAQ TOMPKINS C [facility] 11/07/19 23 3:24PM 3:33PM Osteoarthritis Localized Primary Knee Right Insurance Includes: Active Insurance Policies Plan Name Member ID Group # Subscriber Relationship Effect grant Dates - [facility]/MEDICARE ADV/[employer] [id number] BRIGIDA lieberman Clinical Notes Includes: Clinical Notes from this encounter No Clinical Notes Recorded
--- OUTSIDE RECORDS SUMMARY | 2025-01-05 15:13 | XMS_ITS | Encounter Summary ---
Author Organization [facility] Healthcare Address [address] [place] [address] Care Team Providers Care Cmv Driver Name Role Phone Jh Tena MD Unavailable [phone] Carmen Hurst MD Unavailable Reji Clarke DO Unavailable [phone] Nathan Cross MD Primary Care Provider Vaughn Melendez MD Unavailable [phone] Frederick Burton DMD Unavailable [phone] Doris Brenner DO Unavailable [phone] Obdulio Kumar MD Unavailable Catracho Fernandez MD Unavailable [phone] El Vo MD Unavailable [phone] Pati Yang NP Unavailable [phone] Encounter Details Date Type Department Care Team (Late st Contact Info) Description 05/06/2024 Orders Only [facility] [address] [place] [address] Scanning, Provider Social History Tobacco [...] on file 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 Gender Identity Female 05/03/2020 10:38 PM CDT [...] on filedocumented in this encounter Care Teams Cmv Driver Relationship Specialty Start Date End Date Nathan Cross MD [address] [place] [address] PCP - General Infectious Diseases 02/17/20 Jh Tena MD Consulting Physician Cardiology 01/08/18 Carmen Hurst MD Consulting Physician Neurology 01/08/18 Reji Clarke DO [address] [place] [address] Referring Physician Orthopedic Surgery 08/17/19 Vaughn Melendez MD [address] [place] [address] Consulting Physician Gastroenterology 08/03/20 Frederick Burton, ALFRED [address] [place] [address] Dentist Dental Machinist Bench 04/12/21 Doris Brenner DO [address] [place] [facility] [address] [place] [address] Consulting Physician Otolaryngology 12/28/21 Obdulio Kumar MD [address] [place] [address] [address] [place] [address] Consulting Physician Gastroenterology 04/03/23 [place] [id number] [address] Consulting Physician Orthopedic Surgery 04/24/23 El Vo MD [address] [address] Referring Physician Orthopedic Surgery 10/15/23 Pati Yang NP [address] [address] Nurse Practitioner Cardiology 03/31/24 documented as of this encounter
--- OUTSIDE RECORDS SUMMARY | 2025-01-05 15:13 | XMS_ITS | Referral Summary ---
Author Organization [facility] Address [address] [place] [address] Care Team Providers Care Pipeline Engineer Name Role Phone Jh Tena MD Unavailable [phone] Carmen Hurst MD Unavailable Reji Clarke DO Unavailable [phone] Mabel Mullins MD Primary Care Provider [phone] Vaughn Melendez MD Unavailable [phone] Frederick Burton DMD Unavailable [phone] Doris Brenner DO Unavailable [phone] Obdulio Kumar MD Unavailable Catracho Fernandez MD Unavailable [phone] El Vo MD Unavailable [phone] Pati Yang NP Unavailable [phone] Encounters Date Type Department Care Team Description 12/29/2024 Telephone [facility] [address] [place] [address] Mabel Mullins MD 12/29/2024 11:30 AM CDT Office Visit [facility] [address] [place] [address] Mabel Mullins MD Medicare annual [...] cancer screening by mammogram 12/24/2024 Orders Only [facility] at [address] [place] [phone] Pati Yang NP Hypertensive heart disease with chronic diastolic congestive heart failure (HCC) (Primary Dx); Atrial fibrillation status post cardioversion (HCC) 12/23/2024 Telephone [place] [facility] at [address] [place] [phone] Ezequiel Orta MA 12/22/2024 Results Follow-Up [facility] [address] [facility] [address] [place] [address] Mabel Mullins MD 12/21/2024 12:00 PM ELECTRIC SYSTEM OPERATOR Lab [facility] [address] [place] [address] Essential hypertension 11/08/2024 ACO Quality [facility] Accountable Care [address] [address] Janette Jaquez 10/11/2024 Telephone [facility] Care [address] [address] Franchesca Redd Successful Phone Call ([facility]) from Last 3 Months Allergies Active Allergy [...] (See comments) Medium Reaction: throat itching, swelling, Hrevdad-Bss-Xbp Reductase Inhibitors Muscle pain Medium 06/18/2019 Sulfa [...] total) by mouth daily 30 tablet 2 Active apixaban (ELIQUIS) 5 mg tabletIndications :atrial [...] orthopedics. Assessment & Plan (12/03/2023 12:11 PM ELECTRIC SYSTEM OPERATOR): After they removed fluid from her right knee, there was significant pain relief and it has not recurred. She takes Tylenol as needed. She uses diclofenac gel. She also has tramadol which she rarely uses because it makes her feel woozy. Assessment & Plan (11/08/2023 11:53 AM ELECTRIC SYSTEM OPERATOR): She developed pain and swelling in her [...] therapy. Assessment & Plan (10/29/2023 3:02 PM ELECTRIC SYSTEM OPERATOR): We ordered a PTH. Closed fracture of proximal end of left humerus with routine healing 04/24/2023 Overview (05/12/2023): Seeing Dr. Fernandez Assessment & Plan (09/12/2023 2:55 PM ELECTRIC SYSTEM OPERATOR): She requested a refill of tramadol to [...] Kumar. Assessment & Plan (09/04/2023 11:41 AM ELECTRIC SYSTEM OPERATOR): She is on Nexium twice a day. [...] 08/19/2022 Assessment & Plan (10/29/2023 3:06 PM ELECTRIC SYSTEM OPERATOR): Potassium was slightly low in the ER recently. We requested follow-up testing to see if replacement needs to be increased. Assessment & Plan (08/26/2022 1:02 PM ELECTRIC SYSTEM OPERATOR): Potassium is a little low, probably due to the effects of combined furosemide and hydrochlorothiazide. We will put her on a little potassium supplement. She already takes a magnesium supplement. Acute pain of right knee 06/07/2022 Assessment & Plan (09/10/2022 4:05 PM ELECTRIC SYSTEM OPERATOR): She developed acute pain in her right [...] then went to an orthopedic surgeon in [place] who ordered an MRI. We never got [...] (08/25/2022): Added automatically from request for surgery [id number], cardiac cath on 01/31/2022, Dr. Tena: 1. [...] diet Assessment & Plan (11/23/2021 3:14 PM ELECTRIC SYSTEM OPERATOR): With the onset of vertigo last Friday, [...] weeks. Assessment & Plan (10/29/2020 3:41 PM ELECTRIC SYSTEM OPERATOR): About three or four days ago she [...] level. Assessment & Plan (12/28/2020 9:35 AM ELECTRIC SYSTEM OPERATOR): Nocturnal leg cramps are improved with gabapentin. Continue same. Assessment & Plan (09/28/2020 11:41 AM ELECTRIC SYSTEM OPERATOR): She has had a slight benefit from gabapentin in her nocturnal leg cramps. She can only take 100 mg, otherwise she is excessively sedated. Continue same. Assessment & Plan (08/24/2020 1:07 PM ELECTRIC SYSTEM OPERATOR): She has been having cramps in her [...] (05/11/2023): Added automatically from request for surgery [id number], EGD 04/04/2020: Mild esophageal candidiasis, diffuse gastropathy with some retained food, small HH, Dr. Melendez, [facility]. Follow up endoscopy 04/03/2023, mild reactive gastropathy, focal Sandres's metaplasia at [place], no candidiasis. Assessment & [...] EGD. Assessment & Plan (12/28/2020 9:38 AM ELECTRIC SYSTEM OPERATOR): She is on Nexium for heartburn symptoms. It does not control her abdominal bloating which could have other causes. Assessment & Plan (10/29/2020 3:42 PM ELECTRIC SYSTEM OPERATOR): This could be causing or contributing to [...] scheduled for a right knee arthroscopy at [facility] to remove blood and control possible [...] anesthesiologist. Assessment & Plan (12/03/2023 12:10 PM ELECTRIC SYSTEM OPERATOR): Her latest sodium is stable or even a little improved. We will continue to monitor periodically. Lab Results Component Value Date GLUCOSE 116 10/29/2023 CALCIUM 9.3 10/29/2023 SODIUM 131 (L) 10/29/2023 POTASSIUM 3.4 10/29/2023 CO2 28 10/29/2023 CHLORIDE 88 (L) 10/29/2023 BUNSER 12 10/29/2023 CREATININE 0.79 10/29/2023 Assessment & Plan (11/08/2023 11:52 AM ELECTRIC SYSTEM OPERATOR): Labs done in the ER recently showed [...] 10/15/2023 Assessment & Plan (09/04/2023 11:43 AM ELECTRIC SYSTEM OPERATOR): Sodium is stable or even slightly improved [...] 02/26/2023 Assessment & Plan (08/26/2022 1:03 PM ELECTRIC SYSTEM OPERATOR): Sodium is little lower than her last [...] hands. Assessment & Plan (12/02/2021 1:59 PM ELECTRIC SYSTEM OPERATOR): She has had problems with low-sodium in the past, attributed to a combination of hydrochlorothiazide and furosemide to control swelling in her legs and blood pressure. Systolic blood pressure is mildly elevated today. She got IV fluids in the ER at [place]. We are checking follow-up electrolytes. Consider additional [...] needed. Assessment & Plan (10/12/2020 4:30 PM ELECTRIC SYSTEM OPERATOR): Sodium is stable but still low. It [...] today. Assessment & Plan (08/24/2020 1:06 PM ELECTRIC SYSTEM OPERATOR): She has a mild to moderate hyponatremia, [...] obstruction. Assessment & Plan (12/28/2020 9:40 AM ELECTRIC SYSTEM OPERATOR): For the past year or so, she [...] month. Assessment & Plan (08/26/2022 1:01 PM ELECTRIC SYSTEM OPERATOR): She sees Dr. Tena annually. She is [...] doing. Assessment & Plan (12/28/2020 9:37 AM ELECTRIC SYSTEM OPERATOR): There is no pitting edema in her legs. Lungs are clear. She seems to have better exercise tolerance, walking on the treadmill. Continue to monitor. Assessment & Plan (09/28/2020 11:43 AM ELECTRIC SYSTEM OPERATOR): Diastolic heart failure is probably contributing to fluid retention and hyponatremia. Currently she seems reasonably well controlled. Oxygen saturation is normal and lungs are clear. There is some swelling in her legs but it is not severe. Continue current therapy. Assessment & Plan (08/24/2020 1:05 PM ELECTRIC SYSTEM OPERATOR): She has no swelling in her legs. [...] therapy. Assessment & Plan (09/04/2023 11:44 AM ELECTRIC SYSTEM OPERATOR): She takes levothyroxine. We are monitoring periodically with labs. Lab Results Component Value Date TSH 1.23 08/28/2023 Assessment & Plan (03/03/2023 1:05 PM CDT): We will check a TSH before her next visit in about six months. Lab Results Component Value Date TSH 0.74 08/19/2022 Assessment & Plan (08/26/2022 1:04 PM ELECTRIC SYSTEM OPERATOR): She is on a stable dose of [...] 09/21/2020 Assessment & Plan (12/28/2020 9:34 AM ELECTRIC SYSTEM OPERATOR): TSH is normal on current therapy. I do not think this is contributing to her hypothyroidism. Lab Results Component Value Date TSH 1.06 09/21/2020 Assessment & Plan (08/24/2020 1:09 PM ELECTRIC SYSTEM OPERATOR): She is on a fairly high replacement [...] a feeling of palpitations. She wore another retail director and turned it in this morning. There [...] She was scheduled for an arthroscopy at [facility] which was delayed because of hyponatremia, [...] level. Assessment & Plan (09/04/2023 11:43 AM ELECTRIC SYSTEM OPERATOR): She is on a vitamin-D supplement and [...] hyponatremia. Assessment & Plan (09/10/2022 4:07 PM ELECTRIC SYSTEM OPERATOR): We are referring her back to sleep specialist for reassessment of treatment. Assessment & Plan (08/24/2020 1:08 PM ELECTRIC SYSTEM OPERATOR): She continues on CPAP. She had some [...] Assessment & Plan (01/23/2018 12:05 PM CDT): [place] sleepiness scale score 14 on 01/23/2018 Referred [...] colon 04/16/2015 Overview (08/25/2022): Chart entry from [facility], details lacking. Anemia 04/16/2015 Overview (08/25/2022): Mild, intermittent normocytic anemia first noted at [facility]. Assessment & Plan (03/14/2023 10:38 PM CDT): [...] morning. Assessment & Plan (09/04/2023 11:40 AM ELECTRIC SYSTEM OPERATOR): Symptoms are controlled on Astelin and Flonase [...] months. Assessment & Plan (09/04/2023 11:43 AM ELECTRIC SYSTEM OPERATOR): She takes Zetia. She is intolerant of [...] statins. Assessment & Plan (08/26/2022 1:03 PM ELECTRIC SYSTEM OPERATOR): She did not tolerate statins, but is [...] months. Assessment & Plan (11/04/2017 12:01 PM ELECTRIC SYSTEM OPERATOR): Lipid abnormalities are unchanged. Nutritional counseling was provided. and Pharmacotherapy as ordered. Lipids will be reassessed in 6 months. Chronic fibroadenosis of breast 01/25/2010 Overview (08/25/2022): Note from [facility]: s/p removal (of fibroadenoma) and all mammogram [...] efforts. Assessment & Plan (11/08/2023 11:52 AM ELECTRIC SYSTEM OPERATOR): She is concerned about involuntary weight loss. She usually weighs over 200 lb. Lately she does not feel like eating but denies nausea or abdominal pain. Bowel habits are normal. We will see her back in a month for a follow-up. Assessment & Plan (09/04/2023 11:44 AM ELECTRIC SYSTEM OPERATOR): We encouraged attention to her diet, and hopefully a little bit of weight loss. Assessment & Plan (03/03/2023 1:04 PM CDT): We encouraged attention to her diet, and hopefully some weight loss. Assessment & Plan (08/26/2022 1:04 PM ELECTRIC SYSTEM OPERATOR): We encouraged attention to her diet, and [...] cardiology. Assessment & Plan (09/04/2023 11:42 AM ELECTRIC SYSTEM OPERATOR): Blood pressure is mildly elevated. Dr. Tena [...] in office today at 154/84 (62). Admits health information specialist recently stopped Metoprolol due to low HR. Taking Diovan, hydralyzine, and lasix as ordered. No acute findings on exam. Monitor at home daily and record bring to next office visit. Low salt diet, stay hydrated. Assessment & Plan (08/26/2022 1:01 PM ELECTRIC SYSTEM OPERATOR): Blood pressure is in a reasonable range [...] 02/13/2022 Assessment & Plan (11/23/2021 3:16 PM ELECTRIC SYSTEM OPERATOR): Systolic blood pressure is mildly elevated. We [...] days. Assessment & Plan (12/28/2020 9:38 AM ELECTRIC SYSTEM OPERATOR): Blood pressure is in a reasonable range today. She gets similar or lower blood pressures at home with occasional systolics of 150 in the afternoon or evening. Continue current therapy. Assessment & Plan (09/28/2020 11:42 AM ELECTRIC SYSTEM OPERATOR): Blood pressure is in a good range on current therapy. Continue same. Assessment & Plan (09/02/2020 2:45 PM ELECTRIC SYSTEM OPERATOR): She is on quite a few medicines [...] cardiac concerns and blood pressure with her health information specialist to decrease the possibility of confusion with [...] a blood pressure log to present to health information specialist and or primary care physician for further [...] have referred her to the ER at [facility] for monoclonal antibody infusion. [...] needed. Assessment & Plan (12/28/2021 2:34 PM ELECTRIC SYSTEM OPERATOR): Right Benign Positional Vertigo treated with Enrrique maneuver today Hearing and Balance testing [facility] Dr. Cortez Smith [phone] [address] [place] [address] Cetirizine 5 mg (1/2 Tablet) daily Consider Left sided ear tube placement versus imaging based on hearing and balance testing Vertigo 11/16/2021 08/26/2022 Overview (08/26/2022): Seen in [place] ER. Rx with meclizine. No recurrence as of July 2022. Saw electromechanical technician for this and ringing. Assessment & Plan (12/02/2021 1:57 PM ELECTRIC SYSTEM OPERATOR): She woke up early Friday morning with pretty bad vertigo. There was associated tinnitus. She has not noticed any hearing loss. The only preceding symptom was some mild positional vertigo at the hairdresser the previous Friday. She went to the [facility] ER and had labs and [...] (08/22/2020): Added automatically from request for surgery [id number], see EGD, improved with treatment of Steff. [...] Nasal saline spray (Simply saline, Little Remedies, Paden, Gerlaw) 2 second sprays or 2 squeezes into [...] Follow up in one week. Speak to College President on Friday regarding Xarelto Assessment & Plan (05/30/2020 4:18 PM CDT): Start Nasal saline spray (Simply saline, Little Remedies, Paden, Gerlaw) 2 second sprays or 2 squeezes into [...] Cardiac status will be reassessed by her health information specialist. metoprolol xl 50 mg qd Assessment & Plan (07/16/2018 4:52 PM CDT): No chest pain today. Stable. Assessment & Plan (01/19/2018 9:28 AM CDT): Sec executive assistant lower mid chest area without radiation. Patient has a very minimum ST depression in the lateral leads which is the same in comparison to prior EKGs. Her symptoms are minimum now. She is ruled out for of acute ID with serial troponins and EKGs. Cardiology consult [...] 06/03/2018 Assessment & Plan (12/02/2017 9:42 AM ELECTRIC SYSTEM OPERATOR): Depo-Medrol 80mg IM x 1 now. Nebulized TX DuoNeb given. Rxs given, increase fluids, rest. Pseudophakia of both eyes 04/11/2017 Non-toxic multinodular goiter 03/05/2014 07/03/2018 Overview (01/24/2017): NONTOX MULTINODUL GOITER Chronic sinusitis 11/10/2012 11/04/2017 Overview (01/23/2017): Chronic sinusitis Thyroid nodule 02/17/2012 11/04/2017 Overview (01/23/2017): Thyroid nodule Postmenopausal 04/19/2010 02/17/2020 Non morbid obesity 04/19/2010 1 Assessment & Plan (12/28/2020 9:35 AM ELECTRIC SYSTEM OPERATOR): Her weight is unchanged. She is trying to lose weight. I encouraged her efforts. I encouraged smaller meal sizes to deal with abdominal bloating. Assessment & Plan (10/12/2020 4:29 PM ELECTRIC SYSTEM OPERATOR): She saw a dietitian. She did great [...] months. Assessment & Plan (08/24/2020 1:08 PM ELECTRIC SYSTEM OPERATOR): She has joined a [facility] sponsored diet program and has lost a [...] on file Legal Sex Female 12:10 AM ELECTRIC SYSTEM OPERATOR Gender Identity Female 05/03/2020 10:38 PM [...] on file Medical Devices Implanted Type Area Glass Finisher Device Identifier Shelf Expiration Date Model / Serial / Lot Angio-Seal Evolution 6fr Vascular Closure [id number] - [id number] Implanted:Qty: 1 on 01/31/2022 by Jh Tena MD at [facility] Other - see comments Transportation Group 10/19/2022 [id number] / / [id number] Procedures Procedure Name Priority Date/Time Associated Diagnosis Comments EGFR Routine 12/21/2024 11:58 AM ELECTRIC SYSTEM OPERATOR Essential hypertension THYROID FUNCTION CASCADE Routine 12/21/2024 11:58 AM ELECTRIC SYSTEM OPERATOR Essential hypertension BASIC METABOLIC PANEL Routine 12/21/2024 11:58 AM ELECTRIC SYSTEM OPERATOR Essential hypertension SCREENING MAMMOGRAM BILATERAL W VIRGILIO [...] Maintenance Results * eGFR (12/21/2024 11:58 AM ELECTRIC SYSTEM OPERATOR) eGFR 77 >=60 mL/min/1. 73 m2 Comment: [...] was last reviewed 2021. Testing performed by: [address] [address] Blood 12/21/2024 11:5 8 AM ELECTRIC SYSTEM OPERATOR 12/21/2024 6:26 PM ELECTRIC SYSTEM OPERATOR us Mabel Mullins MD LAB BLOOD ORDERABLES Final Re sult Performing Organization Address [facility] Co de Phone Number [place] [phone] [place] Department [facility] [place] [address] * Thyroid Function [place] (12/21/2024 11:58 AM ELECTRIC SYSTEM OPERATOR) TSH 0.32 0.30 - 4.20 mcIUnit/mL Comment:Testing performed by : [address] [address] Blood 12/21/2024 11:5 8 AM ELECTRIC SYSTEM OPERATOR 12/21/2024 6:10 PM ELECTRIC SYSTEM OPERATOR Mabel Mullins MD LAB BLOOD ORDERABLES Final Re sult Performing Organization Address [facility] Co de Phone Number [place] [phone] [place] [address] * (ABNORMAL) Basic metabolic panel (12/21/2024 11:58 AM ELECTRIC SYSTEM OPERATOR) Sodium 128(L) 135 - 145 mmol/L Comment:Testing performed by : [address] [address] Potassium, pl 3.6 3.3 - 4.9 mmol/L FRANCESCA Comment:Testing performed by : [address], [place]., [address] Chloride 89(L) 97 - 110 mmol/L CERNER Comment:Testing performed by : [address] [address] CO2 26 22 - 32 mmol/L CERNER Comment:Testing performed by : [address] [address] Anion gap 13 2 - 15 mmol/L CERNER Comment:Testing performed by : [address] [address] BUN 13 6 - 25 mg/dL CERNER Comment:Testing performed by : [address] [address] Creatinine 0.81 0.60 - 1.10 mg/dL CERNER Comment:Testing performed by : [address] [address] Glucose 112 70 - 199 mg/dL [facility] Comment: Interpretive Data Fasting glucose >/= 126 [...] was last revised 2022. Testing performed by: [address] [address] Calcium 8.9 8.5 - 10.3 mg/dL [facility] Comment:Testing performed by : [address] [address] Blood 12/21/2024 11:5 8 AM ELECTRIC SYSTEM OPERATOR 12/21/2024 6:10 PM ELECTRIC SYSTEM OPERATOR us Mabel Mullins MD LAB BLOOD ORDERABLES Final Re sult [address] Department [place] [address] * Screening Mammogram Bilateral W Virgilio (01/12/2024 [...] Kumar MD - 04/03/2023 8:38 AM CDT [facility] Patient Name: Brigida Ordaz Procedure Date: 04/03/2023 8:38 AM Date of : 1950 Admit Type: Outpatient Age: 72 Gender: Female Attending MD: Obdulio Kumar M.D. Room: [facility] ROOM 2 Note Status: Finalized Patient Profile: This is a 72 year old female hx of HLD, HTN, AFib status post cardioversion on Xarelto, CAD, thyroid nodules, hypothyroidism, chronic iron deficiency anemia and chronic hyponatremia here forcolonoscopy for iron-deficiency anemia. Last [id number]/2014 showed hemorrhoids and mild diverticulosis. Nofamily history [...] procedure were verified by the physician, the medic technician and the scale technician in the endoscopy suite. Mental Status [...] scope was passed under direct vision. TheColonoscope [id number] was introduced through the anus and advanced [...] 8:38 AM Procedure Code(s): --- Professional --- 57574, Colonoscopy, flexible; diagnostic, including collection of specimen(s) by brushing or washing, when performed (separateprocedure) --- Technical --- 09069, Colonoscopy, flexible; diagnostic, including collection of specimen(s) by brushing or washing, when performed (separateprocedure) Diagnosis Code(s): --- Professional --- K64.8, Other hemorrhoids K64.4, Residual hemorrhoidal skin tags D50.9, Iron deficiency anemia, unspecified --- Technical --- K64.8, Other hemorrhoids K64.4, Residual hemorrhoidal skin tags D50.9, Iron deficiency anemia, unspecified CPT copyright 2020 [employer]. All rights reserved. The codes documented in this report are preliminary and upon weld inspector reviewmay be revised to meet current compliance requirements. Recognized by the [employer] for promoting quality [...] F with given history of screening. Postmenopausal Glass Finisher/Model: [employer] (S/N 44552) CLINICAL INFORMATION: Current height: 66 inches Maximum [...] Lew Tiwari M.D. MF: HAYLEY Report ID: [id number] Reading Location: [place] [address] Procedure Note Lew Tiwari MD - 03/05/2023 EXAM DESCRIPTION: DEXA AXIAL SKELETON BONE DENSITY 1 OR MORE SITES REASON FOR STUDY: 72 y/o year old F with given history of screening. Postmenopausal Glass Finisher/Model: SAVO Discovery SL (S/N 27786) CLINICAL INFORMATION: Current height: 66 inches Maximum [...] Lew Tiwari M.D. MF: H[place]LEY Report ID: [id number] Reading Location: [place] [address] Mabel Mullins MD IMG DXA PROCEDURES Final Resu lt * HEPATITIS C SCREENING (02/13/2017) HEP C Normal Comment:NEGATIVE Historical Provider HEALTH MAINTENANCE Final Result from Last 3 Months or Most Recently Relevant to Health Maintenance Insurance MEDICARE SOL[employer] [facility] MEDIC[facility] Address: [facility] [address] [place] [address] Member Subscriber Plan / Payer (Ef fective 2018-Present) Name:Brigida Ordaz Relation to Subscriber:Self Name:Brigida Ordaz Payer ID:[id number] (NAIC) Type:UHC MEDICARE Address: [place] [id number] MEDICARE SOLUTIONS Advance Directives For more information, please contact: [phone] * Full Code (Latest Code Status on [...] 4:48 AM 01/22/2018 5:06 PM Care Teams Pipeline Engineer Relationship Specialty Start Date End Date Mabel Mullnis MD [address] [place] [address] PCP - General Infectious Diseases 02/17/20 Jh Tena MD Consulting Physician Cardiology 01/08/18 Carmen Hurst MD Consulting Physician Neurology 01/08/18 Reji Clarke DO [address] [place] [address] Referring Physician Orthopedic Surgery 08/17/19 Vaughn Melendez MD [address] [place] [address] Consulting Physician Gastroenterology 08/03/20 Frederick Burton DMD [address] [place], [place] [id number] Dentist Dental Director Of Teaching And Learning 04/12/21 Doris Brenner [address] [place] [address] [address] [facility] [address] [place] [address] Consulting Physician Otolaryngology 12/28/21 Obdulio Kumar MD [address] [place] [address] [address] [place] [address] Consulting Physician Gastroenterology 04/03/23 [place] [id number] [address] Consulting Physician Orthopedic Surgery 04/24/23 El Vo MD [address] [facility] [address] [place] [address] Referring Physician Orthopedic Surgery 10/15/23 Pati Yang NP [address] [facility] [address] [place] [address] Nurse Practitioner Cardiology 03/31/24
--- OUTSIDE RECORDS SUMMARY | 2025-01-05 15:13 | XMS_ITS | Clinical Summary ---
Author Organization [facility] Address [address] [place] [address] Phone Care Team Providers Care Installation Drafter Name Role Phone MILENA QUIROGA MD Unavailable [phone] MABEL MULLINS Primary Care Provider [phone] Reason for Visit and Chief Complaint * PHONE CALL Problems Includes: Problems addressed during this encounter and other active Problems Current Visit Onset Date Resolved Date Provider Conditio n Status History of Prior Surgery: Stent 04/12/2014 MAY BRUNO RN JN Active Last Documented On 04/12/2014 8:44AM ; [facility] Note: Unchanged History of Hysterectomy 04/05/2013 MAY BRUNO RN JN Active Last Documented On 04/05/2013 1:24PM ; [facility] Note: Unchanged Past Visits Onset Date Resolved Date Provider Condition Status Osteoarthritis Localized Primary Knee Right 09/27/2022 SHAQ Banegas Active Last Documented On 2 10:05AM ; [facility] Joint Pain in the Right Knee on the Inner Side 06/14/2022 SHAQ Banegas Active Last Documented On 2 1:24PM ; [facility] Anemia 04/16/2015 MAY BRUNO RN JN Active Last Documented On 5 1:16PM ; [facility] Colonic Diverticulosis 04/16/2015 MAY BRUNO RN JN Active Last Documented On 5 1:15PM ; [facility] URGE INCONTINENCE 03/07/2011 CHRISSIE ROSADO M.D. Active Last Documented On 1 10:51AM ; [facility] Breast Fibroadenosis Chronic 01/25/2010 MAY BRUNO RN WHN P BC Active Last Documented On 04/13/2015 8:29AM ; [facility] Note: pt s/p removal and all mammogram p erformed by Dr. Clifford at [facility] CYST OF THYROID 01/25/2010 CHRISSIE RODRIGUEZ M.D. 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 Esophageal Reflux 01/15/2010 DARSHANA TORRES MD Active Last Documented On 0 10:38PM ; [facility] Hyperlipidemia 02/09/2009 DARSHANA TORRES MD Active Last Documented On 0 10:38PM ; [facility] Essential Hypertension Benign 02/09/2009 DARSHANA TORRES MD Active Last Documented On 0 10:38PM ; [facility] Plan of Treatment No Plan of Treatment [...] DAY Last Documented On 06/14/2022 1:28PM By rIa ALVA ; [facility] hydrALAZINE HCl 100 MG Oral Tablet 06/14/2022 Provid er: Diagnosis: Last Documented On 06/14/2022 1:15PM By MARCY BHAT LPN ; [facility] Gabapentin 100 MG Oral Capsule 06/14/2022 Provider: Diagnosis: Last Documented On 06/14/2022 1:15PM By MARCY BHAT LPN ; [facility] Valsartan-hydroCHLOROthiazide 320-25 MG Oral Tablet Provider: Diagnosis: Last Documented On 06/14/2022 1:12PM By MARCY BHAT LPN ; [facility] NexIUM 40 MG Oral Capsule Delayed Release 06/14/2022 Provider: Diagnosis: Last Documented On 06/14/2022 1:12PM By MARCY BHAT LPN ; [facility] Furosemide 40 MG Oral Tablet 06/14/2022 Provider: Diagnosis: Last Documented On 06/14/2022 1:11PM By MARCY BHAT LPN ; [facility] Amiodarone HCl 200 MG Oral Tablet 06/14/2022 Provide r: Diagnosis: Last Documented On 06/14/2022 1:10PM By MARCY BHAT LPN ; [facility] Xarelto 20 MG Oral Tablet 06/14/2022 Provider: Diagnosis: Last Documented On 06/14/2022 1:10PM By MARCY BHAT LPN ; [facility] Calcium 600 MG Tablet 05/02/2016 Provider: Diagnosis: Last Documented On 05/02/2016 2:58PM By CLAUDIA REYES MA ; [facility] Multi Vitamin Daily Tablet 05/02/2016 Provider: Diagnosis: Last Documented On 05/02/2016 2:58PM By CLAUDIA REYES MA ; [facility] Irbesartan 300 MG Tablet 05/02/2016 Provider: Diagnosis: Last Documented On 05/02/2016 2:58PM By CLAUDIA REYES MA ; [facility] Metoprolol Succinate ER 25 MG Tablet Extended Re lease 24 Hour 05/02/2016 Provider: Diagnosis: Last Documented On 05/02/2016 2:57PM By CLAUDIA REYES MA ; [facility] Levothyroxine Sodium 175 MCG Tablet 05/02/2016 Provi blu: Diagnosis: Last Documented On 05/02/2016 2:57PM By CLAUDIA REYES MA ; [facility] oxyBUTYnin Chloride 5 MG OR TABS 04/12/2014 Provider : Diagnosis: Last Documented On 04/12/2014 8:27AM By AIRAM SARAVIA ; [facility] Livalo 1 MG OR TABS 04/12/2014 Provider: Diagnosis: Last Documented On 04/12/2014 8:27AM By AIRAM SARAVIA ; [facility] Past Medications on file Terconazole 0.8% VA CREA 04/05/2013 - 04/14/2013 Provider: MAY GARNICA BC Diagnosis: CANDIDAL VULVOVA GINITIS 1 PAULA IN VAGINA EVERY NIGHT X 3 APPLY BID TO EXTERNAL AREA Last Documented On 3 1:26PM By MAY GARNICA-BC ; [facility] Diflucan 150 MG OR TABS 03/13/2012 - 03/14/2012 Provider: CHRISSIE ROSADO M.D. Diagnosis: CANDIDAL VULVOVA GINITIS 1 po x 1 day Last Documented On 2 12:45PM By DR. CHRISSIE ROSADO ; [facility] oxyBUTYnin Chloride 5 MG OR TABS 07/01/2011 - 12/28/2011 Provider: DARSHANA KAPOOR MD Diagnosis: Last Documented On 1 12:11AM By DARSHANA TORRES MD ; [facility] Aciphex 20 MG OR TBEC 05/27/2011 - 08/25/2011 Provider : MERY KAUFFMAN PA-C Diagnosis: Last Documented On 1 4:37PM By MERY KAUFFMAN PA-C ; [facility] Lisinopril-hydroCHLOROthiazi de 20-12.5 MG TABS 04/29/2011 - 08/27/2011 Provider: STEVEN FLORES PA-C Diagnosis: 1 qd #30 Last Documented On 04/29/2011 12:46PM By STEVEN FLORES PA-C ; [facility] Carbinoxamine Maleate 4 MG OR TABS 03/29/2011 - 05/28/2011 Provider: DARSHANA TORRES MD Diagnosis: ALLERGIC RHINITI S NOS Last Documented On 03/29/2011 1:37PM By Roys ALVA ; [facility] Oxytrol 3.9 MG/24HR TD PTTW 03/07/2011 - 05/06/2011 Provider: CHRISSIE JORDAN M.D. Diagnosis: URGE INCONTINENC E change patch q 72 hrs Last Documented On 1 10:56AM By DR. CHRISSIE ROSADO ; [facility] NexIUM 40 MG OR CPDR 03/01/2011 - 03/31/2011 Provider: STEVEN FLORES PA-C Diagnosis: Last Documented On 03/01/2011 9:52AM By STEVEN FLORES PA-C ; [facility] Flonase 50 MCG/ACT NA SUSP 11/15/2010 - 12/15/2010 Provider: JULES Banegas Diagnosis: ACUTE SINUSITIS NOS 2 sprays each nostril qd Last Documented On 11/15/2010 3:45PM By JULES MCCARTHY PA-C ; [facility] Zithromax Z-Kash 250 MG OR TABS 11/15/2010 - 11/20/2010 Provider: JULES Banegas Diagnosis: ACUTE SINUSITIS NOS Last Documented On 11/15/2010 3:12PM By JULES MCCARTHY PA-C ; [facility] Cefprozil 500 MG OR TABS 10/25/2010 - 11/04/2010 Provi blu: STEVEN FLORES PA-C Diagnosis: Last Documented On 10/25/2010 10:11AM By STEVEN FLORES PA-C ; [facility] Augmentin 875-125 MG OR TABS 09/11/2010 - 09/21/2010 P rovider: STEVEN FLORES PA-C Diagnosis: Last Documented On 09/11/2010 11:00AM By STEVEN FLORES PA-C ; [facility] Valtrex 1 GM OR TABS 08/20/2010 - 08/21/2010 Provider: STEVEN FLORES PA-C Diagnosis: HERPES SIMPLEX N OS 2 tabs po now, repeat in 12 hours Last Documented On 08/20/2010 5:51PM By STEVEN FLORES PA-C ; [facility] Levaquin 750 MG OR TABS 08/20/2010 - 08/25/2010 Provid er: STEVEN FLORES PA-C Diagnosis: BRONCHITIS NOS Last Documented On 08/20/2010 5:51PM By STEVEN FLORES PA-C ; [facility] Tussionex Pennkinetic ER 10-8 MG/5ML OR LQCR 08/20/2010 - 09/19/2010 Provider: STEVEN Banegas Diagnosis: BRONCHITIS NOS one tsp po BID PRN Last Documented On 08/20/2010 5:51PM By STEVEN FLORES PA-C ; [facility] Simvastatin 20 MG OR TABS 06/27/2010 - 12/24/2010 Prov ider: STEVEN FLORES PA-C Diagnosis: Last Documented On 06/27/2010 12:04PM By STEVEN FLORES PA-C ; [facility] Flonase 50 MCG/ACT NA SUSP 07/21/2009 - 08/20/2009 Pro vider: TANNER MYERS PA-C Diagnosis: 2 sprays q nare qd Last Documented On 07/21/2009 1:27PM By TANNER MYERS ; [facility] [place] 180 MG OR TABS 07/21/2009 - 08/20/2009 Provide r: TANNER MYERS PA-C Diagnosis: Last Documented On 07/21/2009 1:27PM By TANNER MYERS ; [facility] Protonix 40 MG OR TBEC 07/07/2009 - 07/17/2009 Provider: DARSHANA KAPOOR MD Diagnosis: REFLUX ESOPHAGIT IS Last Documented On 9 9:04AM By DARSHANA TORRES MD ; [facility] Medrol (Kash) 4 MG OR TABS 07/07/2009 - 07/13/2009 Prov ider: DARSHANA TORRES MD Diagnosis: COUGH as directed Last Documented On 9 9:04AM By DARSHANA TORRES MD ; [facility] Lisinopril-hydroCHLOROthiazi de 20-12.5 MG TABS 07/07/2009 - 08/06/2009 Provider: DARSHANA HEATON M.D. Diagnosis: Last Documented On 07/07/2009 8:34AM By Rosy ALVA ; [facility] Xyzal 5 MG OR TABS 06/19/2009 - 2009 Provider: STEVEN FLORES PA-C Diagnosis: DRUG ALLERGY NEC Last Documented On 06/19/2009 9:49PM By STEVEN FLORES PA-C ; [facility] [place] 180 MG OR TABS 06/09/2009 - 12/06/2009 Provide r: STEVEN FLORES PA-C Diagnosis: Last Documented On 06/09/2009 12:56PM By STEVEN FLORES PA-C ; [facility] oxyBUTYnin Chloride 5 MG OR TABS 06/03/2009 - 07/03/20 Provider: Diagnosis: Last Documented On 07/05/2009 11:25AM By Jonny Lamb ; [facility] Advair Diskus 250-50 MCG/DOSE IN MISC 05/13/2009 - 06/10/2009 Provider: TANNER GRIFFITH PA-C Diagnosis: COUGH Last Documented On 05/13/2009 9:31AM By TANNER MYERS ; [facility] Ventolin HFA 108 (90 Base) MCG/ACT IN AERS 05/13/2009 - 06/12/2009 Provider: TANNER GRIFFITH PA-C Diagnosis: COUGH 2 puffs q 4-6 hours prn. Last Documented On 05/13/2009 9:31AM By TANNER YMERS ; [facility] Singulair 10 MG OR TABS 05/05/2009 - 05/19/2009 Provider: STEVEN Banegas Diagnosis: PNEUMONIA, ORGAN ISM NOS Last Documented On 05/05/2009 4:06PM By STEVEN FLORES PA-C ; [facility] Advair Diskus 100-50 MCG/DOSE IN MISC 04/20/2009 - 05/18/2009 Provider: STEVEN Banegas Diagnosis: BRONCHITIS NOS one puff twice a day Last Documented On 04/20/2009 9:43AM By STEVEN FLORES PA-C ; [facility] predniSONE 20 MG OR TABS 04/20/2009 - 05/02/2009 Provi blu: STEVEN FLORES PA-C Diagnosis: BRONCHITIS NOS 3 x 3 d, 2 x 3d, 1x3d, 1/2 x 3d then d/c Last Documented On 04/20/2009 9:43AM By STEVEN FLORES PA-C ; [facility] Tussionex Pennkinetic ER 10-8 MG/5ML OR LQCR 04/20/2009 - 05/20/2009 Provider: STEVEN Banegas Diagnosis: BRONCHITIS NOS one tsp twice a day PRN Last Documented On 04/20/2009 9:43AM By STEVEN FLORES PA-C ; [facility] Proventil HFA 108 (90 Base) MCG/ACT IN AERS 04/10/2009 - 05/10/2009 Provider: STEVEN [place] Diagnosis: ACUTE BRONCHITIS 2 puffs every 4-6 hours PRN Last Documented On 04/10/2009 11:51AM By STEVEN FLORES PA-C ; [facility] Tessalon Perles 100 MG OR CAPS 04/10/2009 - 05/10/2009 Provider: STEVEN Banegas Diagnosis: ACUTE BRONCHITIS 1-2 tabs tid PRN Last Documented On 04/10/2009 11:51AM By STEVEN FLORES PA-C ; [facility] Zithromax Z-Kash 250 MG OR TABS 04/10/2009 - 04/15/2009 Provider: STEVEN Banegas Diagnosis: ACUTE BRONCHITIS as directed Last Documented On 04/10/2009 11:51AM By STEVEN FLORES PA-C ; [facility] Simvastatin 20 MG OR TABS 12/30/2008 - 06/28/2009 Prov ider: Diagnosis: Last Documented On 02/09/2009 2:46PM By RACQUEL JIMENEZ ; [facility] Medications Administered Includes: Administered Medications from this encounter No Administered Medications Recorded Results Includes: Results discussed during this encounter No Results Recorded For Specified Dates History of Present Illness Includes: History of Present Illness from this encounter No History of Present Illness Recorded Social History Description Last Updated Tobacco non-user 06/14/2022 Last Documented On 3 11:05AM ; [facility] Personal history plans to retire 10/05 0 05/27/2017 Last Documented On 3 11:05AM ; [facility] Alcohol use: 2 drinks or less per day RA RELY 05/27/2017 Last Documented On 3 11:05AM ; [facility] Education history 05/27/2017 Last Documented On 3 11:05AM ; [facility] In monogamous relationship 05/27/2017 Last Documented On 3 11:05AM ; [facility] Marital history 05/27/2017 Last Documented On 3 11:05AM ; [facility] Non-smoker 05/27/2017 Last Documented On 3 11:05AM ; [facility] Sexually active 05/27/2017 Last Documented On 3 11:05AM ; [facility] Smoking status : Never smoker 05/27/2017 Last Documented On 3 11:05AM ; [facility] Social history unchanged 05/27/2017 Last Documented On 3 11:05AM ; [facility] Currently 05/02/2016 Last Documented On 3 11:05AM ; [facility] Educational level 05/02/2016 Last Documented On 3 11:05AM ; [facility] Not using alcohol 05/02/2016 Last Documented On 3 11:05AM ; [facility] Procedures and Surgical History Surgical History Last Updated Surgical / procedural histor y SINUS SURGERY 11/02 ~THYROIDECTOMY 08/2015 benign nodules 05/02/2016 Last Documented On 3 11:05AM ; [facility] Surgical history unchanged 04/13/2015 Last Documented On 3 11:05AM ; [facility] History of total abdominal hysterectomy 04/12/2014 Last Documented On 3 11:05AM ; [facility] History of hysterectomy 06/15/19962012 Last Documented On 3 11:05AM ; [facility] Bilateral salpingo-oophorectomy 03/11/20 Last Documented On 3 11:05AM ; [facility] Breast Biopsy 03/07/2011 Last Documented On 3 11:05AM ; [facility] Stent 01/24/2010 Last Documented On 3 11:05AM ; [facility] History of cholecystectomy 01/24/2010 Last Documented On 3 11:05AM ; [facility] Medical History Includes: Medical History addressed during this encounter Description Last Updated Last mammogram date: 08/201605/27/2017 Last Documented On 3 11:05AM ; [facility] PRIMARY CARE PROVIDER : Dr. Cheryl Shukla ~ DR. LISA JOY ~DR. VALERIO BREAST SPECIALIST 04/13/2015 Last Documented On 3 11:05AM ; [facility] A colonoscopy was performed 09/26/2009 Varinder BOWLES 201304/13/2015 Last Documented On 3 11:05AM ; [facility] History of a DEXA of the lateral lumbar spine was performed 06/11/2013 04/13/2015 Last Documented On 3 11:05AM ; [facility] History of Pap smear done 03/11/201203/21 Last Documented On 3 11:05AM ; [facility] History of screening mammogram was perfo rmed 05/06/2014 04/13/2015 Last Documented On 3 11:05AM ; [facility] GERD ~hyperilpidemia ~LISA/BS O DUB ENDOMETRIOSIS ~2004- Bladder ~ ~urge incont. ~status post anterior repair 04/12/2014 Last Documented On 3 11:05AM ; [facility] No recent change in medical history 03/21 Last Documented On 3 11:05AM ; [facility] Result: normal 04/12/2014 Last Documented On 3 11:05AM ; [facility] Result: normal 04/12/2014 Last Documented On 3 11:05AM ; [facility] Status post hysterectomy DUB 04/05/2013 Last Documented On 3 11:05AM ; [facility] History of menopause 04/05/2013 Last Documented On 3 11:05AM ; [facility] LMP: 06/15/1996 04/05/2013 Last Documented On 3 11:05AM ; [facility] Last pap smear date 03/11/2012 03/11/2012 Last Documented On 3 11:05AM ; [facility] History of benign essential hypertension 03/07/2011 Last Documented On 3 11:05AM ; [facility] Taking OTC medications including Mucinex 08/20/2010 Last Documented On 3 11:05AM ; [facility] History of chronic reflux esophagitis Last Documented On 3 11:05AM ; [facility] History of thyroid disorder THYROID NODU LES 01/25/2010 Last Documented On 3 11:05AM ; [facility] Para 2 01/25/2010 Last Documented On 3 11:05AM ; [facility] Vaginal delivery 01/25/2010 Last Documented On 3 11:05AM ; [facility] 2 living children 01/15/2010 Last Documented On 3 11:05AM ; [facility] A mammogram was performed 07/30/0701/15 Last Documented On 3 11:05AM ; [facility] 2 01/15/2010 Last Documented On 3 11:05AM ; [facility] Hypertension 01/15/2010 Last Documented On 3 11:05AM ; [facility] History of essential hypertension 2008 Last Documented On 3 11:05AM ; [facility] Taking medication - prescrip tion Patient currently taking Levaquin. Finished Zithromax. Tussionex helping. Proventil inhaler seems to help for a little while 04/20/2009 Last Documented On 3 11:05AM ; [facility] Taking OTC pain medication /fever. Using Tylenol 04/10/2009 Last Documented On 3 11:05AM ; [facility] History of hypertension 02/09/2009 Last Documented On 3 11:05AM ; [facility] Surgery GALBLADDER 1978 ~BLADDER 02/20 Last Documented On 3 11:05AM ; [facility] Family History Includes: Family History addressed during this encounter Description Last Updated Maternal history of diabetes mellitus Mo ther 05/02/2016 Last Documented On 3 11:05AM ; [facility] Family history of diabetes mellitus Moth er 04/13/2015 Last Documented On 3 11:05AM ; [facility] Family history of hypercholesterolemia F ather 04/13/2015 Last Documented On 3 11:05AM ; [facility] Family history of hypertension Patient, Father 04/13/2015 Last Documented On 3 11:05AM ; [facility] Family history unchanged 04/13/2015 Last Documented On 3 11:05AM ; [facility] Spouse name: DARLING 03/07/2011 Last Documented On 3 11:05AM ; [facility] First child named 01/25/2010 Last Documented On 3 11:05AM ; [facility] No family history of malignant female br east neoplasm 01/25/2010 Last Documented On 3 11:05AM ; [facility] No family history of malignant neoplasm of the large intestine 01/25/2010 Last Documented On 3 11:05AM ; [facility] No family history of malignant neoplasm of the ovary 01/25/2010 Last Documented On 3 11:05AM ; [facility] No family history of uterine cancer 05/2010 Last Documented On 3 11:05AM ; [facility] Second child named 01/25/2010 Last Documented On 3 11:05AM ; [facility] Family history of Diabetes (m) 0 Last Documented On 3 11:05AM ; [facility] Family medical history of high blood pre ssure &hyperlipidemia(F) 01/15/2010 Last Documented On 3 11:05AM ; [facility] Brother BLOCKED ARTERIES 2008 Last Documented On 3 11:05AM ; [facility] Brother HAS MS 02/09/2009 Last Documented On 3 11:05AM ; [facility] Father 02/09/2009 Last Documented On 3 11:05AM ; [facility] Heart disease 02/09/2009 Last Documented On 3 11:05AM ; [facility] Mother 02/09/2009 Last Documented On 3 11:05AM ; [facility] Review of Systems Includes: Review of [...] ctive Last Documented On 3 3:29PM ; [facility] Fish Oil Allergy THROAT, MOUTH AND EARS ITCH 04/12/2014 Active Last Documented On 3 3:29PM ; [facility] CeleBREX Allergy 02/09/2009 Active Last Documented On 3 3:29PM ; [facility] Encounters Encounter Provider Location Date Check-In Time Check-Out Time Diagnosis * PHONE CALL SHAQ Banegas [facility] 3 11:05AM 11:59PM Insurance Includes: Active Insurance Policies Plan Name Member ID Group # Subscriber Relationship Effect grant Dates 1 - [facility]/MEDICARE ADV/[employer] [id number] MONAE lieberman Clinical Notes Includes: Clinical Notes from this encounter * Progress note Date Encounter Last Documented by 12/23/2022 * PHONE CALL Last documented on 12/23/2022; 12:01 PM, SHAQ Banegas; [facility] Active Problems & Conditions - 285.9 - Anemia - 610.2 - Breast Fibroadenosis Chronic - pt s/p removal and all mammogram performed by Dr. 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 pt phone # for return call:[phone] Date/Initials:12/23/22 AD. Current Medication - Amiodarone HCl [...] for a little while, medication for pain [id number] /fever. Using Tylenol, and tera-jth-spfrozz medications including Mucinex. Tests: A mammogram was [...]
--- OUTSIDE RECORDS SUMMARY | 2025-01-05 15:14 | XMS_ITS ---
Author Organization [facility] Address [address] [place] [address] Phone Care Team Providers Care Sql Database Programmer Name Role Phone MILENA QUIROGA MD Unavailable [phone] MABEL MULLINS Primary Care Provider [phone] Problems Includes: Active, inactive, and resolved Problems All Visits Onset Date Resolved Date Provider Condition S tatus Osteoarthritis Localized Primary Knee Right 09/27/2022 SHAQ Banegas Active Last Documented On 2 10:05AM ; [facility] Joint Pain in the Right Knee on the Inner Side 06/14/2022 SHAQ Banegas Active Last Documented On 2 1:24PM ; [facility] Anemia 04/16/2015 MAY BRUNO RN JN Active Last Documented On 5 1:16PM ; [facility] Colonic Diverticulosis 04/16/2015 MAY BRUNO RN JN Active Last Documented On 5 1:15PM ; [facility] History of Prior Surgery: Stent 04/12/2014 LEAH BRUNO RN JN Active Last Documented On 4 8:44AM ; [facility] Note: Unchanged History of Hysterectomy 04/05/2013 MAY Landeros RN JN Active Last Documented On 3 1:24PM ; [facility] Note: Unchanged URGE INCONTINENCE 03/07/2011 CHRISSIE ROSADO M.D. Active Last Documented On 1 10:51AM ; [facility] Breast Fibroadenosis Chronic 01/25/2010 MAY M KIANA RN WHN P BC Active Last Documented On 04/13/2015 8:29AM ; [facility] Note: pt s/p removal and all mammogram p erformed by Dr. Clifford at breast cancer center CYST OF THYROID 01/25/2010 CHRISSIE RODRIGUEZ M.D. Active Last Documented On 01/25/2010 1:41PM ; [facility] Note: pt to see ent and director product safety Esophageal Reflux 01/15/2010 DARSHANA TORRES MD Active Last Documented On 0 10:38PM ; [facility] Hyperlipidemia 02/09/2009 DARSHANA TORRES MD Active Last Documented On 0 10:38PM ; [facility] Essential Hypertension Benign 02/09/2009 DARSHANA TORRES MD Active Last Documented On 0 10:38PM ; [facility] Plan of Treatment Findings Encounter Date She [...] 11/21/2022 Last Documented On 3 3:45PM ; [facility] I provided her with the righ t knee Gelsyn injection. This was the second injection in the series. She will follow up next week for the third and final injection in the series FOLLOW UP with SHAQ Banegas 11/14/2022 Last Documented On 3 3:16PM ; [facility] I provided her with the righ t knee Gelsyn injection. This was the first injection in the series. She will follow up next week for the second injection in the series FOLLOW UP with SHAQ Banegas 11/07/2022 Last Documented On 3 3:41PM ; [facility] We did provide her with a ri [...] 09/27/2022 Last Documented On 2 10:08AM ; [facility] She was provided with a righ t knee steroid injection today. She tolerated that without difficulty. She need to wait at least three months before repeat injection. She can follow up with me on an as-needed basis FOLLOW UP with SHAQ Banegas 06/27/2022 Last Documented On 2 2:59PM ; [facility] I think that she likely has sustained [...] 06/14/2022 Last Documented On 2 1:35PM ; [facility] Ordered Clinical summary pro vided to patient VEHICLE OPERATOR EXAM with MAY BRUNO RN JN 05/27/2017 Last Documented On 7 9:43AM ; [facility] Ordered Clinical summary pro vided to patient ANNUAL RN ACUTE CARE EXAM with MAY BRUNO RN JN 05/02/2016 Last Documented On 6 3:14PM ; [facility] Ordered Clinical summary pro vided to patient ANNUAL RN ACUTE CARE EXAM with MAY BRUNO RN JN 04/13/2015 Last Documented On 5 8:37AM ; [facility] Ordered Clinical summary pro vided to patient ANNUAL RN ACUTE CARE EXAM with MAY BRUNO RN JN 04/12/2014 Last Documented On 4 8:44AM ; [facility] Ordered Clinical summary pro vided to patient NEW VEHICLE OPERATOR EXAM with MAY BRUNO RN JN 04/05/2013 Last Documented On 3 1:38PM ; [facility] Ordered follow-up visit as n eeded with an office visit.. Instructed patient to start sudafed PE and arbinoxa as an antihistamine. If sx are not clearing in the next month consider having patient see ENT SICK VISIT with STEVEN FLORES PA-C 03/07/2011 Last Documented On 1 3:17PM ; [facility] Ordered follow-up visit as n eeded with [...] 12/10/2010 Last Documented On 1 2:54PM ; [facility] Ordered follow-up visit as n eeded with an office visit.. Patient to return next week for fasting bloodwork SICK VISIT with STEVEN FLORES PA-C 08/20/2010 Last Documented On 0 5:52PM ; [facility] Ordered follow-up visit as n eeded with an office visit. SICK VISIT with STEVEN FLORES PA-C 04/10/2009 Last Documented On 9 11:51AM ; [facility] Referrals To Diagnosis Wrapper Counter Note: Patient needs to be se en MARIE. Has chronic cough and many treatments without success Last Documented On 9 8:31AM ; [facility] Budget Officer [address] [address] - ALLERGIC RHINITIS NOS Note: DR GERBER Last Documented On 9 3:55PM ; [facility] Wool Hat Sanding Machine Operator [facility] Tedri nology - [address] [place] [address] - Note: Patient needs thyroid nodule biopsy (I did not have good luck with this last time at [facility] so I prefer other facility) Last Documented On 9 11:16AM ; [facility] Other Note: U/S GUIDED BIOPSY OF T HE THYROID NODULE Last Documented On 9 10:32PM ; [facility] Orthopedic WINDY KIRKLAND MD SPRAIN OF KNE E & LEG NOS Note: Dr. Kirkland please Last Documented On 1 12:27PM ; [facility] Instructions to patient Intervention and counseling on cessation of tobacco use Last Documented On 3 3:14PM ; [facility] Intervention and counseling on cessation of tobacco use Last Documented On 3 3:29PM ; [facility] Intervention and counseling on cessation of tobacco use Last Documented On 2 9:56AM ; [facility] Intervention and counseling on cessation of tobacco use Last Documented On 2 2:50PM ; [facility] Instructed to call if excess grant bleeding or abdominal/pelvic pain Last Documented On 7 9:26AM ; [facility] Instructions For Patient: Mo nthly Self Breast Exam Last Documented On 7 9:26AM ; [facility] Recommend diet and exercise at least 30 min three times per week Last Documented On 7 9:26AM ; [facility] Instructions for patient : B reast Self Exam discussed and technique reviewed Last Documented On 6 2:56PM ; [facility] Instructed to call if excess grant bleeding or abdominal/pelvic pain Last Documented On 6 2:56PM ; [facility] Recommend diet and exercise at least 30 min three times per week Last Documented On 6 2:56PM ; [facility] Instructions for patient : B reast Self Exam discussed and technique reviewed Last Documented On 5 8:15AM ; [facility] Instructed to call if excess grant bleeding or abdominal/pelvic pain Last Documented On 5 8:15AM ; [facility] Recommend diet and exercise at least 30 min three times per week Last Documented On 5 8:15AM ; [facility] Recommend preventative vacci nation including but not limited to influenza/flu vaccine, DTP, Rubella, Hepatitis B vaccination series Last Documented On 5 8:15AM ; [facility] Instructions for patient : B reast Self Exam discussed and technique reviewed Last Documented On 4 8:18AM ; [facility] Instructed to call if excess grant bleeding or abdominal/pelvic pain Last Documented On 4 8:18AM ; [facility] Recommend diet and exercise at least 30 min three times per week Last Documented On 4 8:18AM ; [facility] Recommend preventative vacci nation including but not limited to influenza/flu vaccine, DTP, Rubella, Hepatitis B vaccination series Last Documented On 4 8:18AM ; [facility] Instructions for patient : B reast Self Exam discussed and technique reviewed Last Documented On 3 12:56PM ; [facility] Instructed to call if excess grant bleeding or abdominal/pelvic pain Last Documented On 3 12:56PM ; [facility] Instructions For Patient: Mo nthly Self Breast Exam Last Documented On 3 12:56PM ; [facility] Recommend diet and exercise at least 30 min three times per week Last Documented On 3 12:56PM ; [facility] Recommend CBC, TSH, fasting glucose, fasting lipid panel if patient aged 25 or older Last Documented On 3 12:56PM ; [facility] Recommend preventative vacci nation including but not limited to influenza/flu vaccine, DTP, Rubella, Hepatitis B vaccination series Last Documented On 3 12:56PM ; [facility] Instructions for patient : B reast Self Exam discussed. Reviewed monthly self breast examination and technique Last Documented On 2 10:45AM ; [facility] Recommend diet and exercise at least 30 min three times per week Last Documented On 2 10:45AM ; [facility] Recommend preventative vacci nation including but not limited to influenza/flu vaccine, DTP, Rubella, Hepatitis B vaccination series Last Documented On 2 10:45AM ; [facility] Recommend annual pap smear e xamination or every three year if high risk hpv negative and 3 consecutive normal pap examination during preceding three years Last Documented On 2 10:45AM ; [facility] Recommend TSH, fasting gluco se, fasting lipid panel, CBC, BMP Last Documented On 2 10:45AM ; [facility] Recommend Calcium supplement ation and weight bearing exercise Last Documented On 2 10:45AM ; [facility] Recommended Bone Density Last Documented On 2 10:45AM ; [facility] Recommended Colonoscopy Pt r [...] responsibility regarding scheduling and follow up with seismographer Last Documented On 2 10:45AM ; [facility] Instructions for patient : B reast Self Exam discussed. Reviewed monthly self breast examination and technique Last Documented On 10:33AM ; [facility] Recommend diet and exercise at least 30 min three times per week Last Documented On 1 10:33AM ; [facility] Discussed Gardasil vaccinati on and recommend vaccination for HPV prevention. Handout given. Patient undertsands sexual transmission of high-risk HPV and association with abnormal pap smear and cervical cancer. recommend to decrease high risk behaviors such as: number of sexual partners, smoking, and contraceptive use Last Documented On 10:33AM ; [facility] Recommend preventative vacci nation including but not limited to influenza/flu vaccine, DTP, Rubella, Hepatitis B vaccination series Last Documented On 10:33AM ; [facility] Recommend annual pap smear e xamination or every three year if high risk hpv negative and 3 consecutive normal pap examination during preceding three years Last Documented On 05/19/201 1 10:33AM ; [facility] Recommend TSH, fasting gluco se, fasting lipid panel, CBC, BMP Last Documented On 1 10:33AM ; [facility] Recommend Calcium supplement ation and weight bearing exercise Last Documented On 1 10:33AM ; [facility] Recommended Bone Density Last Documented On 1 10:33AM ; [facility] Recommended Colonoscopy Pt r [...] responsibility regarding scheduling and follow up with seismographer Last Documented On 1 10:33AM ; [facility] Instructions for patient : B reast Self Exam discussed. Reviewed monthly self breast examination and technique Last Documented On 0 1:26PM ; [facility] Recommend diet and exercise at least 30 min three times per week Last Documented On 0 1:26PM ; [facility] Discussed Gardasil vaccinati on and recommend vaccination for HPV prevention. Handout given. Patient undertsands sexual transmission of high-risk HPV and association with abnormal pap smear and cervical cancer. recommend to decrease high risk behaviors such as: number of sexual partners, smoking, and contraceptive use Last Documented On 0 1:26PM ; [facility] Recommend preventative vacci nation including but not limited to influenza/flu vaccine, DTP, Rubella, Hepatitis B vaccination series Last Documented On 0 1:26PM ; [facility] Recommend annual pap smear e xamination or every three year if high risk hpv negative and 3 consecutive normal pap examination during preceding three years Last Documented On 0 1:26PM ; [facility] Recommend TSH, fasting gluco se, fasting lipid panel, CBC, BMP Last Documented On 0 1:26PM ; [facility] Recommend Calcium supplement ation and weight bearing exercise Last Documented On 0 1:26PM ; [facility] Recommended Bone Density Last Documented On 0 1:26PM ; [facility] Recommended Colonoscopy Pt r [...] responsibility regarding scheduling and follow up with seismographer Last Documented On 0 1:26PM ; [facility] Education and Decision Aids were provided during visit for: Patient Education: Daily yobany cium and vitamin D Last Documented On 7 9:26AM ; [facility] Patient Education: Daily yobany cium and vitamin D Last Documented On 6 2:56PM ; [facility] Patient Education: Daily yobany cium and vitamin D Last Documented On 5 8:15AM ; [facility] Patient Education: Daily yobany cium and vitamin D Last Documented On 4 8:18AM ; [facility] Patient Education: Daily yobany cium and vitamin D Last Documented On 3 12:56PM ; [facility] Patient Education: weight be aring exercise Last Documented On 3 12:56PM ; [facility] Patient will maintain adequa te intake of dietary Ca+ and Mg+ Last Documented On 3 12:56PM ; [facility] Assessments Includes: Assessments for all patient encounters Findings Encounter Date Localized primary osteoarthr itis of right knee FOLLOW UP with SHAQ Banegas 11/21/2022 Last Documented On 3 3:45PM ; [facility] Localized primary osteoarthr itis of right knee FOLLOW UP with SHAQ Banegas 11/14/2022 Last Documented On 3 3:16PM ; [facility] Localized primary osteoarthr itis of right knee FOLLOW UP with SHAQ Banegas 11/07/2022 Last Documented On 3 3:41PM ; [facility] Localized primary osteoarthr itis of right knee FOLLOW UP with SHAQ Banegas 09/27/2022 Last Documented On 2 10:08AM ; [facility] Assessment of medial right k nee joint pain FOLLOW UP with SHAQ Banegas 06/27/2022 Last Documented On 2 2:59PM ; [facility] Assessment of medial right k nee joint pain ORTHO ESTABLISHED PATIENT with SHAQ Banegas 06/14/2022 Last Documented On 2 1:35PM ; [facility] NORMAL FEMALE EXAM VEHICLE OPERATOR EXAM with MAY Adrian [facility] 05/27/2017 Last Documented On 7 9:43AM ; [facility] NORMAL FEMALE EXAM ANNUAL RN ACUTE CARE EXAM with MAY BRUNO RN [facility] 05/02/2016 Last Documented On 6 3:14PM ; [facility] Benign essential hypertension ANNUAL RN ACUTE CARE EXAM with MAY BRUNO RN [facility] 04/13/2015 Last Documented On 5 8:37AM ; [facility] Chronic fibroadenosis of the breast CHUCK AL RN ACUTE CARE EXAM with MAY BRUNO RN [facility] 04/13/2015 Last Documented On 5 8:37AM ; [facility] Routine gynecological exam ANNUAL RN ACUTE CARE EXAM with MAY BRUNO RN [facility] 04/13/2015 Last Documented On 5 8:37AM ; [facility] Routine gynecological exam ANNUAL RN ACUTE CARE EXAM with MAY BRUNO RN [facility] 04/12/2014 Last Documented On 4 8:44AM ; [facility] Screening Malig. Neoplasm Rectum ANNUAL RN ACUTE CARE EXAM with MAY BRUNO RN [facility] 04/12/2014 Last Documented On 4 8:44AM ; [facility] NORMAL FEMALE EXAM NEW VEHICLE OPERATOR EXAM with MAY CALLAHAN RN [facility] 04/05/2013 Last Documented On 3 1:38PM ; [facility] Routine gynecological exam NEW VEHICLE OPERATOR EXAM with JULIANNE BRUNO RN [facility] 04/05/2013 Last Documented On 3 1:38PM ; [facility] Screening Malig. Neoplasm Rectum NEW VEHICLE OPERATOR EXAM with MAY BRUNO RN [facility] 04/05/2013 Last Documented On 3 1:38PM ; [facility] Vaginal candidiasis NEW VEHICLE OPERATOR EXAM with MAY PARKS RN [facility] 04/05/2013 Last Documented On 3 1:38PM ; [facility] Asymptomatic postmenopausal status ANNUA L RN ACUTE CARE EXAM with CHRISSIE ROSADO M.D. 03/11/2012 Last Documented On 2 10:59AM ; [facility] History of breast neoplasm malignant KHUSHBOO UAL RN ACUTE CARE EXAM with CHRISSIE ROSADO M.D. 03/11/2012 Last Documented On 2 10:59AM ; [facility] MAMMOGRAM SCREENING ANNUAL RN ACUTE CARE EXAM with CHRISSIE ROSADO M.D. 03/11/2012 Last Documented On 2 10:59AM ; [facility] NORMAL FEMALE EXAM ANNUAL RN ACUTE CARE EXAM with CHRISSIE ROSADO M.D. 03/11/2012 Last Documented On 2 10:59AM ; [facility] Screening Malig. Neoplasm Rectum ANNUAL RN ACUTE CARE EXAM with CHRISSIE ROSADO M.D. 03/11/2012 Last Documented On 2 10:59AM ; [facility] Asymptomatic postmenopausal status ANNUA L RN ACUTE CARE EXAM with CHRISSIE ROSADO M.D. 03/07/2011 Last Documented On 1 10:57AM ; [facility] MAMMOGRAM SCREENING ANNUAL RN ACUTE CARE EXAM with CHRISSIE ROSADO M.D. 03/07/2011 Last Documented On 1 10:57AM ; [facility] NORMAL FEMALE EXAM ANNUAL RN ACUTE CARE EXAM with CHRISSIE ROSADO M.D. 03/07/2011 Last Documented On 1 10:57AM ; [facility] Screening Malig. Neoplasm Rectum ANNUAL RN ACUTE CARE EXAM with CHRISSIE ROSADO M.D. 03/07/2011 Last Documented On 1 10:57AM ; [facility] Allergic rhinitis SICK VISIT with STEVEN Elkins-Makenzie 03/07/2011 Last Documented On 1 3:17PM ; [facility] Eustachian tube dysfunction SICK VISIT with NGOC FLORES PA-C 03/07/2011 Last Documented On 1 3:17PM ; [facility] Closed fracture of the tibia ? PROBLEM VISIT wit h STEVEN FLORES PA-C 12/10/2010 Last Documented On 1 2:54PM ; [facility] Knee sprain PROBLEM VISIT with STEVEN FLORES PA-C 12/10/2010 Last Documented On 1 2:54PM ; [facility] Benign essential hypertension CHECK UP with CHIP TORRES MD 09/19/2010 Last Documented On 0 10:42PM ; [facility] Esophageal reflux CHECK UP with DARSHANA KAPOOR MD 09/19/2010 Last Documented On 0 10:42PM ; [facility] Hyperlipidemia CHECK UP with DARSHANA TORRES MD 09/19/2010 Last Documented On 0 10:42PM ; [facility] Nontoxic nodular goiter CHECK UP with DARSHANA COOPER MD 09/19/2010 Last Documented On 0 10:42PM ; [facility] Bronchitis SICK VISIT with STEVEN Banegas 08/20/2010 Last Documented On 0 5:52PM ; [facility] Herpes simplex type I mouth SICK VISIT with NGOC FLORES PA-C 08/20/2010 Last Documented On 0 5:52PM ; [facility] Thyroid disorder nodules, benign SICK VISIT with STEVEN FLORES PA-C 08/20/2010 Last Documented On 0 5:52PM ; [facility] Asymptomatic postmenopausal status VEHICLE OPERATOR EXAM with CHRISSIE ORSADO M.D. 01/25/2010 Last Documented On 0 2:47PM ; [facility] MAMMOGRAM SCREENING VEHICLE OPERATOR EXAM with CHRISSIE GRAHAM M.D. 01/25/2010 Last Documented On 0 2:47PM ; [facility] NORMAL FEMALE EXAM VEHICLE OPERATOR EXAM with CHRISSIE MUNGUIA M.D. 01/25/2010 Last Documented On 0 2:47PM ; [facility] SCREENING FOR CONDITION NEC VEHICLE OPERATOR EXAM with TRES ROSADO M.D. 01/25/2010 Last Documented On 0 2:47PM ; [facility] Screening Malig. Neoplasm Rectum VEHICLE OPERATOR EXAM with Cj ROSADO M.D. 01/25/2010 Last Documented On 0 2:47PM ; [facility] Assessment of cough RECHECK with STEVEN Dillon 09/07/2009 Last Documented On 9 4:45PM ; [facility] Dysphagia RECHECK with STEVEN FLORES PA-C 1 11/07/2008 Last Documented On 9 4:45PM ; [facility] Goiter (diffuse nontoxic) RECHECK with STEVEN TOMPKINS-C 09/07/2009 Last Documented On 9 4:45PM ; [facility] Voice disturbance RECHECK with STEVEN TOMPKINS-C 09/07/2009 Last Documented On 9 4:45PM ; [facility] Allergic rhinitis MED CHECK with DARSHANA SYLVESTER MD 07/07/2009 Last Documented On 9 9:38AM ; [facility] Assessment of cough MED CHECK with DARSHANA WELLS MD 07/07/2009 Last Documented On 9 9:38AM ; [facility] Benign essential hypertension MED CHECK with VALERIA TORRES MD 07/07/2009 Last Documented On 9 9:38AM ; [facility] Chronic reflux esophagitis MED CHECK with DARSHANA TORRES MD 07/07/2009 Last Documented On 9 9:38AM ; [facility] Fatigue MED CHECK with DARSHANA Daniel MD 07/07/2009 Last Documented On 9 9:38AM ; [facility] Hyperlipidemia MED CHECK with DARSHANA Daniel MD 07/07/2009 Last Documented On 9 9:38AM ; [facility] Allergic drug reaction SICK VISIT with STEVEN TOMPKINS-C 06/19/2009 Last Documented On 9 9:49PM ; [facility] Benign essential hypertension SICK VISIT with MILTON TOMPKINS-C 06/19/2009 Last Documented On 9 9:49PM ; [facility] Assessment of cough RECHECK with TANNER TOMPKINS-C 05/12/2009 Last Documented On 9 9:32AM ; [facility] Pneumonia SICK VISIT with STEVEN TOMPKINS- C 05/05/2009 Last Documented On 9 4:06PM ; [facility] Bronchitis SICK VISIT with STEVEN TOMPKINS- C 04/20/2009 Last Documented On 9 9:51AM ; [facility] Acute bronchitis SICK VISIT with STEVEN Dillon 04/10/2009 Last Documented On 9 11:51AM ; [facility] Instructions Includes: Instructions for all patient encounters Instructions to patient Intervention and counseling on cessation of tobacco use Last Documented On 3 3:14PM ; [facility] Intervention and counseling on cessation of tobacco use Last Documented On 3 3:29PM ; [facility] Intervention and counseling on cessation of tobacco use Last Documented On 2 9:56AM ; [facility] Intervention and counseling on cessation of tobacco use Last Documented On 2 2:50PM ; [facility] Instructed to call if excess grant bleeding or abdominal/pelvic pain Last Documented On 7 9:26AM ; [facility] Instructions For Patient: Mo nthly Self Breast Exam Last Documented On 7 9:26AM ; [facility] Recommend diet and exercise at least 30 min three times per week Last Documented On 7 9:26AM ; [facility] Instructions for patient : B reast Self Exam discussed and technique reviewed Last Documented On 6 2:56PM ; [facility] Instructed to call if excess grant bleeding or abdominal/pelvic pain Last Documented On 6 2:56PM ; [facility] Recommend diet and exercise at least 30 min three times per week Last Documented On 6 2:56PM ; [facility] Instructions for patient : B reast Self Exam discussed and technique reviewed Last Documented On 5 8:15AM ; [facility] Instructed to call if excess grant bleeding or abdominal/pelvic pain Last Documented On 5 8:15AM ; [facility] Recommend diet and exercise at least 30 min three times per week Last Documented On 5 8:15AM ; [facility] Recommend preventative vacci nation including but not limited to influenza/flu vaccine, DTP, Rubella, Hepatitis B vaccination series Last Documented On 5 8:15AM ; [facility] Instructions for patient : B reast Self Exam discussed and technique reviewed Last Documented On 4 8:18AM ; [facility] Instructed to call if excess grant bleeding or abdominal/pelvic pain Last Documented On 4 8:18AM ; [facility] Recommend diet and exercise at least 30 min three times per week Last Documented On 4 8:18AM ; [facility] Recommend preventative vacci nation including but not limited to influenza/flu vaccine, DTP, Rubella, Hepatitis B vaccination series Last Documented On 4 8:18AM ; [facility] Instructions for patient : B reast Self Exam discussed and technique reviewed Last Documented On 3 12:56PM ; [facility] Instructed to call if excess grant bleeding or abdominal/pelvic pain Last Documented On 3 12:56PM ; [facility] Instructions For Patient: Mo nthly Self Breast Exam Last Documented On 3 12:56PM ; [facility] Recommend diet and exercise at least 30 min three times per week Last Documented On 3 12:56PM ; [facility] Recommend CBC, TSH, fasting glucose, fasting lipid panel if patient aged 25 or older Last Documented On 3 12:56PM ; [facility] Recommend preventative vacci nation including but not limited to influenza/flu vaccine, DTP, Rubella, Hepatitis B vaccination series Last Documented On 3 12:56PM ; [facility] Instructions for patient : B reast Self Exam discussed. Reviewed monthly self breast examination and technique Last Documented On 2 10:45AM ; [facility] Recommend diet and exercise at least 30 min three times per week Last Documented On 2 10:45AM ; [facility] Recommend preventative vacci nation including but not limited to influenza/flu vaccine, DTP, Rubella, Hepatitis B vaccination series Last Documented On 2 10:45AM ; [facility] Recommend annual pap smear e xamination or every three year if high risk hpv negative and 3 consecutive normal pap examination during preceding three years Last Documented On 2 10:45AM ; [facility] Recommend TSH, fasting gluco se, fasting lipid panel, CBC, BMP Last Documented On 2 10:45AM ; [facility] Recommend Calcium supplement ation and weight bearing exercise Last Documented On 2 10:45AM ; [facility] Recommended Bone Density Last Documented On 2 10:45AM ; [facility] Recommended Colonoscopy Pt r [...] responsibility regarding scheduling and follow up with seismographer Last Documented On 2 10:45AM ; [facility] Instructions for patient : B reast Self Exam discussed. Reviewed monthly self breast examination and technique Last Documented On 1 10:33AM ; [facility] Recommend diet and exercise at least 30 min three times per week Last Documented On 10:33AM ; [facility] Discussed Gardasil vaccinati on and recommend vaccination for HPV prevention. Handout given. Patient undertsands sexual transmission of high-risk HPV and association with abnormal pap smear and cervical cancer. recommend to decrease high risk behaviors such as: number of sexual partners, smoking, and contraceptive use Last Documented On 10:33AM ; [facility] Recommend preventative vacci nation including but not limited to influenza/flu vaccine, DTP, Rubella, Hepatitis B vaccination series Last Documented On 10:33AM ; [facility] Recommend annual pap smear e xamination or every three year if high risk hpv negative and 3 consecutive normal pap examination during preceding three years Last Documented On 10:33AM ; [facility] Recommend TSH, fasting gluco se, fasting lipid panel, CBC, BMP Last Documented On 1 10:33AM ; [facility] Recommend Calcium supplement ation and weight bearing exercise Last Documented On 1 10:33AM ; [facility] Recommended Bone Density Last Documented On 10:33AM ; [facility] Recommended Colonoscopy Pt r [...] responsibility regarding scheduling and follow up with seismographer Last Documented On 1 10:33AM ; [facility] Instructions for patient : B reast Self Exam discussed. Reviewed monthly self breast examination and technique Last Documented On 0 1:26PM ; [facility] Recommend diet and exercise at least 30 min three times per week Last Documented On 0 1:26PM ; [facility] Discussed Gardasil vaccinati on and recommend vaccination for HPV prevention. Handout given. Patient undertsands sexual transmission of high-risk HPV and association with abnormal pap smear and cervical cancer. recommend to decrease high risk behaviors such as: number of sexual partners, smoking, and contraceptive use Last Documented On 0 1:26PM ; [facility] Recommend preventative vacci nation including but not limited to influenza/flu vaccine, DTP, Rubella, Hepatitis B vaccination series Last Documented On 0 1:26PM ; [facility] Recommend annual pap smear e xamination or every three year if high risk hpv negative and 3 consecutive normal pap examination during preceding three years Last Documented On 0 1:26PM ; [facility] Recommend TSH, fasting gluco se, fasting lipid panel, CBC, BMP Last Documented On 0 1:26PM ; [facility] Recommend Calcium supplement ation and weight bearing exercise Last Documented On 0 1:26PM ; [facility] Recommended Bone Density Last Documented On 0 1:26PM ; [facility] Recommended Colonoscopy Pt r [...] responsibility regarding scheduling and follow up with seismographer Last Documented On 0 1:26PM ; [facility] Education and Decision Aids were provided during visit for: Patient Education: Daily yobany cium and vitamin D Last Documented On 7 9:26AM ; [facility] Patient Education: Daily yobany cium and vitamin D Last Documented On 6 2:56PM ; [facility] Patient Education: Daily yobany cium and vitamin D Last Documented On 5 8:15AM ; [facility] Patient Education: Daily yobany cium and vitamin D Last Documented On 4 8:18AM ; [facility] Patient Education: Daily yobany cium and vitamin D Last Documented On 3 12:56PM ; [facility] Patient Education: weight be aring exercise Last Documented On 3 12:56PM ; [facility] Patient will maintain adequa te intake of dietary Ca+ and Mg+ Last Documented On 3 12:56PM ; [facility] Medical Equipment - Implanted Devices Includes: Current [...] On 06/14/2022 1:28PM By Ira ALVA ; [facility] hydrALAZINE HCl 100 MG Oral Tablet 06/14/2022 Provid er: Diagnosis: Last Documented On 06/14/2022 1:15PM By MARCY BHAT LPN ; [facility] Gabapentin 100 MG Oral Capsule 06/14/2022 Provider: Diagnosis: Last Documented On 06/14/2022 1:15PM By MARCY BHAT LPN ; [facility] Valsartan-hydroCHLOROthiazide 320-25 MG Oral Tablet Provider: Diagnosis: Last Documented On 06/14/2022 1:12PM By MARCY BHAT LPN ; [facility] NexIUM 40 MG Oral Capsule Delayed Release 06/14/2022 Provider: Diagnosis: Last Documented On 06/14/2022 1:12PM By MARCY BHAT LPN ; [facility] Furosemide 40 MG Oral Tablet 06/14/2022 Provider: Diagnosis: Last Documented On 06/14/2022 1:11PM By MARCY BHAT LPN ; [facility] Amiodarone HCl 200 MG Oral Tablet 06/14/2022 Provide r: Diagnosis: Last Documented On 06/14/2022 1:10PM By MARCY BHAT LPN ; [facility] Xarelto 20 MG Oral Tablet 06/14/2022 Provider: Diagnosis: Last Documented On 06/14/2022 1:10PM By MARCY BHAT LPN ; [facility] Calcium 600 MG Tablet 05/02/2016 Provider: Diagnosis: Last Documented On 05/02/2016 2:58PM By CLAUDIA REYES MA ; [facility] Multi Vitamin Daily Tablet 05/02/2016 Provider: Diagnosis: Last Documented On 05/02/2016 2:58PM By CLAUDIA REYES MA ; [facility] Irbesartan 300 MG Tablet 05/02/2016 Provider: Diagnosis: Last Documented On 05/02/2016 2:58PM By CLAUDIA REYES MA ; [facility] Metoprolol Succinate ER 25 MG Tablet Extended Re lease 24 Hour 05/02/2016 Provider: Diagnosis: Last Documented On 05/02/2016 2:57PM By CLAUDIA REYES MA ; [facility] Levothyroxine Sodium 175 MCG Tablet 05/02/2016 Provi blu: Diagnosis: Last Documented On 05/02/2016 2:57PM By CLAUDIA REYES MA ; [facility] oxyBUTYnin Chloride 5 MG OR TABS 04/12/2014 Provider : Diagnosis: Last Documented On 04/12/2014 8:27AM By AIRAM SARAVIA ; [facility] Livalo 1 MG OR TABS 04/12/2014 Provider: Diagnosis: Last Documented On 04/12/2014 8:27AM By AIRAM SARAVIA ; [facility] Past Medications on file HydroCHLOROthiazide 25 MG Tablet 05/02/2016 - 06/14/20 22 Provider: Diagnosis: Last Documented On 06/14/2022 1:08PM By MARCY BHAT LPN ; [facility] Dexilant 60 MG Capsule Delayed Release 05/02/2016 - Provider: Diagnosis: Last Documented On 06/14/2022 1:08PM By MARCY BHAT LPN ; [facility] Micardis HCT 80-25 MG OR TABS 04/12/2014 - 05/02/2016 Provider: Diagnosis: Last Documented On 05/02/2016 2:55PM By CLAUDIA REYES MA ; [facility] Caltrate 600+D 600-800 MG-UNIT OR TABS 04/12/2014 - Provider: Diagnosis: Last Documented On 05/02/2016 2:58PM By CLAUDIA REYES MA ; [facility] NexIUM 40 MG OR PACK 04/12/2014 - 05/02/2016 Provider: Diagnosis: Last Documented On 05/02/2016 2:59PM By CLAUDIA REYES MA ; [facility] Terconazole 0.8% VA CREA 04/05/2013 - 04/14/2013 Provider: MAY BRUNO RN JN Diagnosis: CANDIDAL VULVOVA GINITIS 1 PAULA IN VAGINA EVERY NIGHT X 3 APPLY BID TO EXTERNAL AREA Last Documented On 3 1:26PM By MAY BRUNO JN- ; [facility] Diflucan 150 MG OR TABS 03/13/2012 - 03/14/2012 Provider: CHRISSIE ROSADO M.D. Diagnosis: CANDIDAL VULVOVA GINITIS 1 po x 1 day Last Documented On 2 12:45PM By DR. CHRISSIE ROSADO ; [facility] C03-Actyel 1 MG OR CHEW 03/11/2012 - 04/12/2014 Provid er: Diagnosis: Last Documented On 04/12/2014 8:24AM By AIRAM SARAVIA ; [facility] Aciphex 20 MG OR TBEC 03/11/2012 - 04/12/2014 Provider : Diagnosis: Last Documented On 04/12/2014 8:24AM By AIRAM SARAVIA ; [facility] Lisinopril 10 MG OR TABS 03/11/2012 - 04/12/2014 Provi blu: Diagnosis: Last Documented On 04/12/2014 8:24AM By AIRAM SARAVIA ; [facility] oxyBUTYnin Chloride 5 MG OR TABS 07/01/2011 - 12/28/2011 Provider: DARSHANA KAPOOR MD Diagnosis: Last Documented On 1 12:11AM By DARSHANA TORRES MD ; [facility] Aciphex 20 MG OR TBEC 05/27/2011 - 08/25/2011 Provider : MERY KAUFFMAN PA-C Diagnosis: Last Documented On 1 4:37PM By MERY KAUFFMAN PA-C ; [facility] Lisinopril-hydroCHLOROthiazi de 20-12.5 MG TABS 04/29/2011 - 08/27/2011 Provider: STEVEN FLORES PA-C Diagnosis: 1 qd #30 Last Documented On 04/29/2011 12:46PM By STEVEN FLORES PA-C ; [facility] Carbinoxamine Maleate 4 MG OR TABS 03/29/2011 - 05/28/2011 Provider: DARSHANA TORRES MD Diagnosis: ALLERGIC RHINITI S NOS Last Documented On 03/29/2011 1:37PM By Rosy ALVA ; [facility] Oxytrol 3.9 MG/24HR TD PTTW 03/07/2011 - 05/06/2011 Provider: CHRISSIE JORDAN M.D. Diagnosis: URGE INCONTINENC E change patch q 72 hrs Last Documented On 1 10:56AM By DR. CHRISSIE ROSADO ; [facility] Carbinoxamine Maleate 4 MG OR TABS 03/07/2011 - 03/29/2011 Provider: STEVEN FLORES PA-C Diagnosis: ALLERGIC RHINITI S NOS Last Documented On 03/29/2011 1:37PM By Rosy ALVA ; [facility] NexIUM 40 MG OR CPDR 03/01/2011 - 03/31/2011 Provider: STEVEN FLORES PA-C Diagnosis: Last Documented On 03/01/2011 9:52AM By STEVEN FLORES PA-C ; [facility] Aciphex 20 MG OR TBEC 02/25/2011 - 05/27/2011 Provider : STEVEN FLORES PA-C Diagnosis: Last Documented On 1 4:37PM By MERY KAUFFMAN PA-C ; [facility] Lisinopril-hydroCHLOROthiazi de 20-12.5 MG TABS 12/26/2010 - 04/29/2011 Provider: STEVEN FLORES PA-C Diagnosis: 1 qd #30 Last Documented On 04/29/2011 12:46PM By STEVEN FLORES PA-C ; [facility] oxyBUTYnin Chloride 5 MG OR TABS 12/26/2010 - 07/01/2011 Provider: DARSHANA KAPOOR MD Diagnosis: Last Documented On 1 12:10AM By DARSHANA TORRES MD ; [facility] Aciphex 20 MG OR TBEC 11/26/2010 - 02/25/2011 Provider : STEVEN FLORES PA-C Diagnosis: Last Documented On 02/25/2011 10:28AM By STEVEN FLORES PA-C ; [facility] Flonase 50 MCG/ACT NA SUSP 11/15/2010 - 12/15/2010 Provider: JULES Banegas Diagnosis: ACUTE SINUSITIS NOS 2 sprays each nostril qd Last Documented On 11/15/2010 3:45PM By JULES MCCARTHY PA-C ; [facility] Zithromax Z-Kash 250 MG OR TABS 11/15/2010 - 11/20/2010 Provider: JULES Banegas Diagnosis: ACUTE SINUSITIS NOS Last Documented On 11/15/2010 3:12PM By JULES MCCARTHY PA-C ; [facility] Cefprozil 500 MG OR TABS 10/25/2010 - 11/04/2010 Provi blu: STEVEN FLORES PA-C Diagnosis: Last Documented On 10/25/2010 10:11AM By STEVEN FLORES PA-C ; [facility] Augmentin 875-125 MG OR TABS 09/11/2010 - 09/21/2010 P rovider: STEVEN FLORES PA-C Diagnosis: Last Documented On 09/11/2010 11:00AM By STEVEN FLORES PA-C ; [facility] Lisinopril-hydroCHLOROthiazi de 20-12.5 MG TABS 08/30/2010 - 12/26/2010 Provider: STEVEN FLORES PA-C Diagnosis: 1 qd #30 Last Documented On 12/26/2010 11:22AM By STEVEN FLORES PA-C ; [facility] Valtrex 1 GM OR TABS 08/20/2010 - 08/21/2010 Provider: STEVEN FLORES PA-C Diagnosis: HERPES SIMPLEX N OS 2 tabs po now, repeat in 12 hours Last Documented On 08/20/2010 5:51PM By STEVEN FLORES PA-C ; [facility] Levaquin 750 MG OR TABS 08/20/2010 - 08/25/2010 Provid er: STEVEN FLORES PA-C Diagnosis: BRONCHITIS NOS Last Documented On 08/20/2010 5:51PM By STEVEN FLORES PA-C ; [facility] Tussionex Pennkinetic ER 10-8 MG/5ML OR LQCR 08/20/2010 - 09/19/2010 Provider: STEVEN Banegas Diagnosis: BRONCHITIS NOS one tsp po BID PRN Last Documented On 08/20/2010 5:51PM By STEVEN FLORES PA-C ; [facility] Aciphex 20 MG OR TBEC 08/06/2010 - 11/26/2010 Provider : STEVEN FLORES PA-C Diagnosis: Last Documented On 11/26/2010 11:52AM By STEVEN FLORES PA-C ; [facility] oxyBUTYnin Chloride 5 MG OR TABS 06/27/2010 - 12/27/19 11 Provider: STEVEN FLORES PA-C Diagnosis: Last Documented On 12/26/2010 11:23AM By Rosy ALVA ; [facility] Simvastatin 20 MG OR TABS 06/27/2010 - 12/24/2010 Prov ider: STEVEN FLORES PA-C Diagnosis: Last Documented On 06/27/2010 12:04PM By STEVEN FLORES PA-C ; [facility] Aciphex 20 MG OR TBEC 05/04/2010 - 08/06/2010 Provider : STEVEN FLORES PA-C Diagnosis: Last Documented On 08/06/2010 11:43AM By STEVEN FLORES PA-C ; [facility] Lisinopril-hydroCHLOROthiazi de 20-12.5 MG TABS 04/25/2010 - 08/30/2010 Provider: STEVEN FLORES PA-C Diagnosis: 1 qd #30 Last Documented On 08/30/2010 8:54AM By STEVEN FLORES PA-C ; [facility] Aciphex 20 MG OR TBEC 02/06/2010 - 05/04/2010 Provider : STEVEN FLORES PA-C Diagnosis: Last Documented On 05/04/2010 10:17AM By STEVEN FLORES PA-C ; [facility] Simvastatin 20 MG OR TABS 01/02/2010 - 06/27/2010 Prov ider: STEVEN FLORES PA-C Diagnosis: Last Documented On 06/27/2010 12:04PM By STEVEN FLORES PA-C ; [facility] oxyBUTYnin Chloride 5 MG OR TABS 01/02/2010 - 06/27/20 10 Provider: STEVEN FLORES PA-C Diagnosis: Last Documented On 06/27/2010 12:04PM By STEVEN FLORES PA-C ; [facility] Lisinopril-hydroCHLOROthiazi de 20-12.5 MG TABS 12/29/2009 - 04/25/2010 Provider: TANNER MYERS PA-C Diagnosis: 1 qd #30 Last Documented On 04/25/2010 12:22PM By STEVEN FLORES PA-C ; [facility] Aciphex 20 MG OR TBEC 08/31/2009 - 02/06/2010 Provider : STEVEN FLORES PA-C Diagnosis: Last Documented On 02/06/2010 8:41AM By STEVEN FLORES PA-C ; [facility] Lisinopril-hydroCHLOROthiazi de 20-12.5 MG TABS 08/28/2009 - 12/29/2009 Provider: STEVEN FLORES PA-C Diagnosis: Last Documented On 12/29/2009 11:24AM By TANNER MYERS ; [facility] Clarinex 5 MG OR TABS 07/21/2009 - 07/21/2009 Provider : TANNER MYERS PA-C Diagnosis: ALLERGIC RHINITI S NOS Last Documented On 07/21/2009 1:28PM By TANNER MYERS ; [facility] Nasacort AQ 55 MCG/ACT NA AERS 07/21/2009 - 07/21/2009 Provider: TANNER GRIFFITH PA-C Diagnosis: ALLERGIC RHINITI S NOS 2 sprays q nare qd Last Documented On 07/21/2009 1:28PM By TANNER MYERS ; [facility] Flonase 50 MCG/ACT NA SUSP 07/21/2009 - 08/20/2009 Pro vider: TANNER MYERS PA-C Diagnosis: 2 sprays q nare qd Last Documented On 07/21/2009 1:27PM By TANNER MYERS ; [facility] [place] 180 MG OR TABS 07/21/2009 - 08/20/2009 Provide r: TANNER MYERS PA-C Diagnosis: Last Documented On 07/21/2009 1:27PM By TANNER MYERS ; [facility] Nasacort AQ 55 MCG/ACT NA AERS 07/07/2009 - 07/21/2009 Provider: DARSHANA TORRES MD Diagnosis: ALLERGIC RHINITI S NOS Last Documented On 07/21/2009 12:12PM By TANNER MYERS ; [facility] Clarinex 5 MG OR TABS 07/07/2009 - 07/21/2009 Provider: DARSHANA TORRES MD Diagnosis: ALLERGIC RHINITI S NOS Last Documented On 07/21/2009 12:12PM By TANNER MYERS ; [facility] Protonix 40 MG OR TBEC 07/07/2009 - 07/17/2009 Provider: DARSHANA KAPOOR MD Diagnosis: REFLUX ESOPHAGIT IS Last Documented On 9 9:04AM By DARSHANA TORRES MD ; [facility] Medrol (Kash) 4 MG OR TABS 07/07/2009 - 07/13/2009 Prov ider: DARSHANA TORRES MD Diagnosis: COUGH as directed Last Documented On 9 9:04AM By DARSHANA TORRES MD ; [facility] Lisinopril-hydroCHLOROthiazi de 20-12.5 MG TABS 07/07/2009 - 08/06/2009 Provider: DARSHANA HEATON M.D. Diagnosis: Last Documented On 07/07/2009 8:34AM By Rosy ALVA ; [facility] Simvastatin 20 MG OR TABS 07/06/2009 - 01/02/2010 Prov ider: STEVEN FLORES PA-C Diagnosis: Last Documented On 01/02/2010 10:36AM By STEVEN FLORES PA-C ; [facility] oxyBUTYnin Chloride 5 MG OR TABS 07/06/2009 - 01/03/20 Provider: STEVEN FLORES PA-C Diagnosis: Last Documented On 01/02/2010 10:36AM By STEVEN FLORES PA-C ; [facility] Xyzal 5 MG OR TABS 06/19/2009 - 2009 Provider: STEVEN FLORES PA-C Diagnosis: DRUG ALLERGY NEC Last Documented On 06/19/2009 9:49PM By STEVEN FLORES PA-C ; [facility] hydroCHLOROthiazide 25 MG TABS 9 - 07/07/2009 Provider: STEVEN FLORES PA-C Diagnosis: BENIGN HYPERTENS ION Last Documented On 07/07/2009 8:34AM By Rosy ALVA ; [facility] [place] 180 MG OR TABS 06/09/2009 - 12/06/2009 Provide r: STEVEN FLORES PA-C Diagnosis: Last Documented On 06/09/2009 12:56PM By STEVEN FLORES PA-C ; [facility] Benicar HCT 40-12.5 MG OR TABS 06/09/2009 - 07/07/2009 Provider: STEVEN FLORES PA-C Diagnosis: Last Documented On 07/07/2009 8:35AM By Rosy ALVA ; [facility] Aciphex 20 MG OR TBEC 06/05/2009 - 08/31/2009 Provider : STEVEN FLORES PA-C Diagnosis: Last Documented On 08/31/2009 3:11PM By STEVEN FLORES PA-C ; [facility] oxyBUTYnin Chloride 5 MG OR TABS 06/03/2009 - 07/03/20 Provider: Diagnosis: Last Documented On 07/05/2009 11:25AM By Jonny Lamb ; [facility] Medrol (Kash) 4 MG OR TABS 05/13/2009 - 07/07/2009 Prov ider: TANNER MYERS PA-C Diagnosis: COUGH as directed Last Documented On 9 9:04AM By DARSHANA TORRES MD ; [facility] Advair Diskus 250-50 MCG/DOSE IN MISC 05/13/2009 - 06/10/2009 Provider: TANNER GRIFFITH PA-C Diagnosis: COUGH Last Documented On 05/13/2009 9:31AM By TANNER MYERS ; [facility] Ventolin HFA 108 (90 Base) MCG/ACT IN AERS 05/13/2009 - 06/12/2009 Provider: TANNER GRIFFITH PA-C Diagnosis: COUGH 2 puffs q 4-6 hours prn. Last Documented On 05/13/2009 9:31AM By TANNER MYERS ; [facility] Singulair 10 MG OR TABS 05/05/2009 - 05/19/2009 Provider: STEVEN Banegas Diagnosis: PNEUMONIA, ORGAN ISM NOS Last Documented On 05/05/2009 4:06PM By STEVEN FLORES PA-C ; [facility] Lisinopril-hydroCHLOROthiazi de 20-12.5 MG TABS 05/03/2009 - 06/19/2009 Provider: STEVEN FLORES PA-C Diagnosis: Last Documented On 9 7:05PM By JEREMÍAS MACHUCA ; [facility] Advair Diskus 100-50 MCG/DOSE IN MISC 04/20/2009 - 05/18/2009 Provider: STEVEN L PAGE PA- C Diagnosis: BRONCHITIS NOS one puff twice a day Last Documented On 04/20/2009 9:43AM By STEVEN FLORES PA-C ; [facility] predniSONE 20 MG OR TABS 04/20/2009 - 05/02/2009 Provi blu: STEVEN FLORES PA-C Diagnosis: BRONCHITIS NOS 3 x 3 d, 2 x 3d, 1x3d, 1/2 x 3d then d/c Last Documented On 04/20/2009 9:43AM By STEVEN FLORES PA-C ; [facility] Tussionex Pennkinetic ER 10-8 MG/5ML OR LQCR 04/20/2009 - 05/20/2009 Provider: STEVEN Banegas Diagnosis: BRONCHITIS NOS one tsp twice a day PRN Last Documented On 04/20/2009 9:43AM By STEVEN FLORES PA-C ; [facility] Proventil HFA 108 (90 Base) MCG/ACT IN AERS 04/10/2009 - 05/10/2009 Provider: STEVEN Paris Diagnosis: ACUTE BRONCHITIS 2 puffs every 4-6 hours PRN Last Documented On 04/10/2009 11:51AM By STEVEN FLORES PA-C ; [facility] Tessalon Perles 100 MG OR CAPS 04/10/2009 - 05/10/2009 Provider: STEVEN Banegas Diagnosis: ACUTE BRONCHITIS 1-2 tabs tid PRN Last Documented On 04/10/2009 11:51AM By STEVEN FLORES PA-C ; [facility] Zithromax Z-Kash 250 MG OR TABS 04/10/2009 - 04/15/2009 Provider: STEVEN Banegas Diagnosis: ACUTE BRONCHITIS as directed Last Documented On 04/10/2009 11:51AM By STEVEN FLORES PA-C ; [facility] Aciphex 20 MG OR TBEC 03/06/2009 - 06/05/2009 Provider : STEVEN FLORES PA-C Diagnosis: Last Documented On 06/05/2009 2:36PM By STEVEN FLORES PA-C ; [facility] Simvastatin 20 MG OR TABS 12/30/2008 - 06/28/2009 Prov ider: Diagnosis: Last Documented On 02/09/2009 2:46PM By RACQUEL JIMENEZ ; [facility] Medications Administered Includes: Administered Medications in patient's chart No Administered Medications Recorded Results Includes: Results from 01/06/2024 through 01/05/2025 No Results Recorded For Specified Dates History of Present Illness History of Present Illness not supported for this document type No History of Present Illness Recorded Social History Description Last Updated Tobacco non-user 06/14/2022 Last Documented On 2 1:35PM ; [facility] Personal history plans to retire 10/05 0 05/27/2017 Last Documented On 7 9:43AM ; [facility] Alcohol use: 2 drinks or less per day RA RELY 05/27/2017 Last Documented On 7 9:43AM ; [facility] Education history 05/27/2017 Last Documented On 7 9:43AM ; [facility] In monogamous relationship 05/27/2017 Last Documented On 7 9:43AM ; [facility] Marital history 05/27/2017 Last Documented On 7 9:43AM ; [facility] Non-smoker 05/27/2017 Last Documented On 7 9:43AM ; [facility] Sexually active 05/27/2017 Last Documented On 7 9:43AM ; [facility] Smoking status : Never smoker 05/27/2017 Last Documented On 7 9:43AM ; [facility] Social history unchanged 05/27/2017 Last Documented On 7 9:43AM ; [facility] Currently 05/02/2016 Last Documented On 6 3:14PM ; [facility] Educational level 05/02/2016 Last Documented On 6 3:14PM ; [facility] Not using alcohol 05/02/2016 Last Documented On 6 3:14PM ; [facility] Procedures and Surgical History Surgical History Last Updated Surgical / procedural histor y SINUS SURGERY 11/02 ~THYROIDECTOMY 08/2015 benign nodules 05/02/2016 Last Documented On 6 3:14PM ; [facility] Surgical history unchanged 04/13/2015 Last Documented On 5 8:37AM ; [facility] History of total abdominal hysterectomy 04/12/2014 Last Documented On 4 8:44AM ; [facility] History of hysterectomy 06/15/19962012 Last Documented On 3 1:38PM ; [facility] Bilateral salpingo-oophorectomy 03/11/20 12 Last Documented On 2 10:59AM ; [facility] Breast Biopsy 03/07/2011 Last Documented On 1 10:57AM ; [facility] Stent 01/24/2010 Last Documented On 0 10:41PM ; [facility] History of cholecystectomy 01/24/2010 Last Documented On 0 10:41PM ; [facility] Medical History Includes: Medical History in patient's chart Description Last Updated Last mammogram date: 08/201605/27/2017 Last Documented On 7 9:43AM ; [facility] PRIMARY CARE PROVIDER : Dr. Cheryl Shukla ~ DR. LISA JOY ~DR. VALERIO BREAST SPECIALIST 04/13/2015 Last Documented On 5 8:37AM ; [facility] A colonoscopy was performed 09/26/2009 Varinder BOWLES 201304/13/2015 Last Documented On 5 8:37AM ; [facility] History of a DEXA of the lateral lumbar spine was performed 06/11/2013 04/13/2015 Last Documented On 5 8:37AM ; [facility] History of Pap smear done 03/11/201203/21 Last Documented On 5 8:37AM ; [facility] History of screening mammogram was perfo rmed 05/06/2014 04/13/2015 Last Documented On 5 8:37AM ; [facility] GERD ~hyperilpidemia ~LISA/BS O DUB ENDOMETRIOSIS ~2004- Bladder ~ ~urge incont. ~status post anterior repair 04/12/2014 Last Documented On 4 8:44AM ; [facility] No recent change in medical history 03/21 Last Documented On 4 8:44AM ; [facility] Result: normal 04/12/2014 Last Documented On 4 8:44AM ; [facility] Result: normal 04/12/2014 Last Documented On 4 8:44AM ; [facility] Status post hysterectomy DUB 04/05/2013 Last Documented On 3 1:38PM ; [facility] History of menopause 04/05/2013 Last Documented On 3 1:38PM ; [facility] LMP: 06/15/1996 04/05/2013 Last Documented On 3 1:38PM ; [facility] Last pap smear date 03/11/2012 03/11/2012 Last Documented On 2 10:59AM ; [facility] History of benign essential hypertension 03/07/2011 Last Documented On 1 10:57AM ; [facility] Taking OTC medications including Mucinex 08/20/2010 Last Documented On 0 5:52PM ; [facility] History of chronic reflux esophagitis Last Documented On 0 2:47PM ; [facility] History of thyroid disorder THYROID NODU LES 01/25/2010 Last Documented On 0 2:47PM ; [facility] Para 2 01/25/2010 Last Documented On 0 2:47PM ; [facility] Vaginal delivery 01/25/2010 Last Documented On 0 2:47PM ; [facility] 2 living children 01/15/2010 Last Documented On 0 10:41PM ; [facility] A mammogram was performed 07/30/0701/15 Last Documented On 0 10:41PM ; [facility] 2 01/15/2010 Last Documented On 0 10:41PM ; [facility] Hypertension 01/15/2010 Last Documented On 0 10:41PM ; [facility] History of essential hypertension 2008 Last Documented On 9 9:49PM ; [facility] Taking medication - prescrip tion Patient currently taking Levaquin. Finished Zithromax. Tussionex helping. Proventil inhaler seems to help for a little while 04/20/2009 Last Documented On 9 9:51AM ; [facility] Taking OTC pain medication /fever. Using Tylenol 04/10/2009 Last Documented On 9 11:51AM ; [facility] History of hypertension 02/09/2009 Last Documented On 9 2:50PM ; [facility] Surgery GALBLADDER 1978 ~BLADDER 02/20 Last Documented On 9 2:50PM ; [facility] Family History Includes: Family History in patient's chart Description Last Updated Maternal history of diabetes mellitus Mo ther 05/02/2016 Last Documented On 6 3:14PM ; [facility] Family history of diabetes mellitus Moth er 04/13/2015 Last Documented On 5 8:37AM ; [facility] Family history of hypercholesterolemia F ather 04/13/2015 Last Documented On 5 8:37AM ; [facility] Family history of hypertension Patient, Father 04/13/2015 Last Documented On 5 8:37AM ; [facility] Family history unchanged 04/13/2015 Last Documented On 5 8:37AM ; [facility] Spouse name: DARLING 03/07/2011 Last Documented On 1 10:57AM ; [facility] First child named 01/25/2010 Last Documented On 0 2:47PM ; [facility] No family history of malignant female br east neoplasm 01/25/2010 Last Documented On 0 2:47PM ; [facility] No family history of malignant neoplasm of the large intestine 01/25/2010 Last Documented On 0 2:47PM ; [facility] No family history of malignant neoplasm of the ovary 01/25/2010 Last Documented On 0 2:47PM ; [facility] No family history of uterine cancer 05/2010 Last Documented On 0 2:47PM ; [facility] Second child named 01/25/2010 Last Documented On 0 2:47PM ; [facility] Family history of Diabetes (m) 0 Last Documented On 0 10:41PM ; [facility] Family medical history of high blood pre ssure &hyperlipidemia(F) 01/15/2010 Last Documented On 0 10:41PM ; [facility] Brother BLOCKED ARTERIES 2008 Last Documented On 9 2:50PM ; [facility] Brother HAS MS 02/09/2009 Last Documented On 9 2:50PM ; [facility] Father 02/09/2009 Last Documented On 9 2:50PM ; [facility] Heart disease 02/09/2009 Last Documented On 9 2:50PM ; [facility] Mother 02/09/2009 Last Documented On 9 2:50PM ; [facility] Review of Systems Review of Systems not [...] ent Last Documented On 1 10:39AM ; [facility] Influenza (Quadrivalent)36 mo.& older PF 0.5ml (SD) 1 07/07/2009 Right Arm Complete (Administered) [facility] Last Documented On 9 8:53AM ; [facility] Influenza (Quadrivalent)36 mo.& older PF 0.5ml (SD) 2 09/19/2010 Right Arm Complete (Administered) [facility] Last Documented On 0 12:20PM ; [facility] Td 1 Complete (Reported) Lo ent Last Documented On 1 10:39AM ; [facility] Zostavax 1 Complete (Reported) Pat ient Last Documented On 2 10:48AM ; [facility] Allergies Includes: Active, inactive, and resolved Allergies Substance Type Reaction Onset Date Resolved Date Statu s Sulfa Antibiotics Allergy 02/09/2009 A ctive Last Documented On 3 3:29PM ; [facility] Fish Oil Allergy THROAT, MOUTH AND EARS ITCH 04/12/2014 Active Last Documented On 3 3:29PM ; [facility] CeleBREX Allergy 02/09/2009 Active Last Documented On 3 3:29PM ; [facility] Insurance Includes: Active Insurance Policies Plan Name Member ID Group # Subscriber Relationship Effect grant Dates 1 - [facility]/MEDICARE ADV/[employer] [id number] MONAE lieberman Clinical Notes Includes: Signed Clinical Notes starting from 11/08/2022 No Clinical Notes Recorded
--- OUTSIDE RECORDS SUMMARY | 2025-01-05 15:14 | XMS_ITS | Clinical Summary ---
Author Organization [facility] Address [address] [place] [address] Phone Care Team Providers Care Practice Administrator Name Role Phone MILENA QUIROGA MD Unavailable [phone] MABEL MULLINS Primary Care Provider [phone] Reason for Visit and Chief Complaint visit for: Right Knee Pain - The Chief Complaint is: PRESENTS FOR RT KNEE, GELSYN-3 INJ #3 OF 3 Problems Includes: Problems addressed during this encounter and other active Problems Current Visit Onset Date Resolved Date Provider Conditio n Status Osteoarthritis Localized Primary Knee Right 09/27/2022 SHAQ Banegas Active Last Documented On 2 10:05AM ; [facility] History of Prior Surgery: Stent 04/12/2014 LEAH BRUNO RN JN Active Last Documented On 4 8:44AM ; [facility] Note: Unchanged History of Hysterectomy 04/05/2013 MAY Landeros RN JN Active Last Documented On 3 1:24PM ; [facility] Note: Unchanged Past Visits Onset Date Resolved Date Provider Condition Status Joint Pain in the Right Knee on the Inner Side 06/14/2022 SHAQ Banegas Active Last Documented On 2 1:24PM ; [facility] Anemia 04/16/2015 AMY BRUNO RN JN [place] Active Last Documented On 5 1:16PM ; [facility] Colonic Diverticulosis 04/16/2015 MAY BOSTON Active Last Documented On 5 1:15PM ; [facility] URGE INCONTINENCE 03/07/2011 CHRISSIE ROSADO M.D. Active Last Documented On 1 10:51AM ; [facility] Breast Fibroadenosis Chronic 01/25/2010 MAY BRUNO RN WHN P BC Active Last Documented On 04/13/2015 8:29AM ; [facility] Note: pt s/p removal and all mammogram p erformed by Dr. Clfiford at [facility] CYST OF THYROID 01/25/2010 CHRISSIE RODRIGUEZ M.D. 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 Esophageal Reflux 01/15/2010 DARSHANA TORRES MD Active Last Documented On 0 10:38PM ; [facility] Hyperlipidemia 02/09/2009 DARSHANA TORRES MD Active Last Documented On 0 10:38PM ; [facility] Essential Hypertension Benign 02/09/2009 DARSHANA TORRES MD Active Last Documented On 0 10:38PM ; [facility] Plan of Treatment She was given her [...] - Last Documented On 11/21/2022 3:45PM ; [facility] Assessments Includes: Assessments from this encounter Findings - [M17.11 - Unilateral primary osteoarthritis, right knee] Localized primary osteoarthritis of right knee - Last Documented On 11/21/2022 3:45PM ; [facility] Medical Equipment - Implanted Devices Includes: Current [...] On 06/14/2022 1:28PM By Ira ALVA ; [facility] hydrALAZINE HCl 100 MG Oral Tablet 06/14/2022 Provid er: Diagnosis: Last Documented On 06/14/2022 1:15PM By MARCY BHAT LPN ; [facility] Gabapentin 100 MG Oral Capsule 06/14/2022 Provider: Diagnosis: Last Documented On 06/14/2022 1:15PM By MARCY BHAT LPN ; [facility] Valsartan-hydroCHLOROthiazide 320-25 MG Oral Tablet Provider: Diagnosis: Last Documented On 06/14/2022 1:12PM By MARCY BHAT LPN ; [facility] NexIUM 40 MG Oral Capsule Delayed Release 06/14/2022 Provider: Diagnosis: Last Documented On 06/14/2022 1:12PM By MARCY BHAT LPN ; [facility] Furosemide 40 MG Oral Tablet 06/14/2022 Provider: Diagnosis: Last Documented On 06/14/2022 1:11PM By MARCY BHAT LPN ; [facility] Amiodarone HCl 200 MG Oral Tablet 06/14/2022 Provide r: Diagnosis: Last Documented On 06/14/2022 1:10PM By MARCY BHAT LPN ; [facility] Xarelto 20 MG Oral Tablet 06/14/2022 Provider: Diagnosis: Last Documented On 06/14/2022 1:10PM By MARCY BHAT LPN ; [facility] Calcium 600 MG Tablet 05/02/2016 Provider: Diagnosis: Last Documented On 05/02/2016 2:58PM By CLAUDIA REYES MA ; [facility] Multi Vitamin Daily Tablet 05/02/2016 Provider: Diagnosis: Last Documented On 05/02/2016 2:58PM By CLAUDIA REYES MA ; [facility] Irbesartan 300 MG Tablet 05/02/2016 Provider: Diagnosis: Last Documented On 05/02/2016 2:58PM By CLAUDIA REYES MA ; [facility] Metoprolol Succinate ER 25 MG Tablet Extended Re lease 24 Hour 05/02/2016 Provider: Diagnosis: Last Documented On 05/02/2016 2:57PM By CLAUDIA REYES MA ; [facility] Levothyroxine Sodium 175 MCG Tablet 05/02/2016 Provi blu: Diagnosis: Last Documented On 05/02/2016 2:57PM By CLAUDIA REYES MA ; [facility] oxyBUTYnin Chloride 5 MG OR TABS 04/12/2014 Provider : Diagnosis: Last Documented On 04/12/2014 8:27AM By AIRAM SARAVIA ; [facility] Livalo 1 MG OR TABS 04/12/2014 Provider: Diagnosis: Last Documented On 04/12/2014 8:27AM By AIRAM SARAVIA ; [facility] Past Medications on file Terconazole 0.8% VA CREA 04/05/2013 - 04/14/2013 Provider: MAY BRUNO RN JN Diagnosis: CANDIDAL VULVOVA GINITIS 1 PAULA IN VAGINA EVERY NIGHT X 3 APPLY BID TO EXTERNAL AREA Last Documented On 3 1:26PM By MAY GARNICA- ; [facility] Diflucan 150 MG OR TABS 03/13/2012 - 03/14/2012 Provider: CHRISSIE ROSADO M.D. Diagnosis: CANDIDAL VULVOVA GINITIS 1 po x 1 day Last Documented On 2 12:45PM By DR. CHRISSIE ROSADO ; [facility] oxyBUTYnin Chloride 5 MG OR TABS 07/01/2011 - 12/28/2011 Provider: DARSHANA KAPOOR MD Diagnosis: Last Documented On 1 12:11AM By DARSHANA TORRES MD ; [facility] Aciphex 20 MG OR TBEC 05/27/2011 - 08/25/2011 Provider : MERY KAUFFMAN PA-C Diagnosis: Last Documented On 1 4:37PM By MERY KAUFFMAN PA-C ; [facility] Lisinopril-hydroCHLOROthiazi de 20-12.5 MG TABS 04/29/2011 - 08/27/2011 Provider: STEVEN FLORES PA-C Diagnosis: 1 qd #30 Last Documented On 04/29/2011 12:46PM By STEVEN FLORES PA-C ; [facility] Carbinoxamine Maleate 4 MG OR TABS 03/29/2011 - 05/28/2011 Provider: DARSHANA TORRES MD Diagnosis: ALLERGIC RHINITI S NOS Last Documented On 03/29/2011 1:37PM By Rosy ALVA ; [facility] Oxytrol 3.9 MG/24HR TD PTTW 03/07/2011 - 05/06/2011 Provider: CHRISSIE JORDAN M.D. Diagnosis: URGE INCONTINENC E change patch q 72 hrs Last Documented On 1 10:56AM By DR. CHRISSIE ROSADO ; [facility] NexIUM 40 MG OR CPDR 03/01/2011 - 03/31/2011 Provider: STEVEN FLORES PA-C Diagnosis: Last Documented On 03/01/2011 9:52AM By STEVEN FLORES PA-C ; [facility] Flonase 50 MCG/ACT NA SUSP 11/15/2010 - 12/15/2010 Provider: JULES Banegas Diagnosis: ACUTE SINUSITIS NOS 2 sprays each nostril qd Last Documented On 11/15/2010 3:45PM By JULES MCCARTHY PA-C ; [facility] Zithromax Z-Kash 250 MG OR TABS 11/15/2010 - 11/20/2010 Provider: JULES Banegas Diagnosis: ACUTE SINUSITIS NOS Last Documented On 11/15/2010 3:12PM By JULES MCCARTHY PA-C ; [facility] Cefprozil 500 MG OR TABS 10/25/2010 - 11/04/2010 Provi blu: STEVEN FLORES PA-C Diagnosis: Last Documented On 10/25/2010 10:11AM By STEVEN FLORES PA-C ; [facility] Augmentin 875-125 MG OR TABS 09/11/2010 - 09/21/2010 Pawan batesder: STEVEN FLORES PA-C Diagnosis: Last Documented On 09/11/2010 11:00AM By STEVEN FLORES PA-C ; [facility] Valtrex 1 GM OR TABS 08/20/2010 - 08/21/2010 Provider: STEVEN FLORES PA-C Diagnosis: HERPES SIMPLEX N OS 2 tabs po now, repeat in 12 hours Last Documented On 08/20/2010 5:51PM By STEVEN FLORES PA-C ; [facility] Levaquin 750 MG OR TABS 08/20/2010 - 08/25/2010 Provid er: STEVEN FLORES PA-C Diagnosis: BRONCHITIS NOS Last Documented On 08/20/2010 5:51PM By STEVEN FLORES PA-C ; [facility] Tussionex Pennkinetic ER 10-8 MG/5ML OR LQCR 08/20/2010 - 09/19/2010 Provider: STEVEN Banegas Diagnosis: BRONCHITIS NOS one tsp po BID PRN Last Documented On 08/20/2010 5:51PM By STEVEN FLORES PA-C ; [facility] Simvastatin 20 MG OR TABS 06/27/2010 - 12/24/2010 Prov ider: STEVEN FLORES PA-C Diagnosis: Last Documented On 06/27/2010 12:04PM By STEVEN FLORES PA-C ; [facility] Flonase 50 MCG/ACT NA SUSP 07/21/2009 - 08/20/2009 Pro vider: TANNER MYERS PA-C Diagnosis: 2 sprays q nare qd Last Documented On 07/21/2009 1:27PM By TANNER MYERS ; [facility] [place] 180 MG OR TABS 07/21/2009 - 08/20/2009 Provide r: TANNER MYERS PA-C Diagnosis: Last Documented On 07/21/2009 1:27PM By TANNER MYERS ; [facility] Protonix 40 MG OR TBEC 07/07/2009 - 07/17/2009 Provider: DARSHANA KAPOOR MD Diagnosis: REFLUX ESOPHAGIT IS Last Documented On 9 9:04AM By DARSHANA TORRES MD ; [facility] Medrol (Kash) 4 MG OR TABS 07/07/2009 - 07/13/2009 Prov ider: DARSHANA TORRES MD Diagnosis: COUGH as directed Last Documented On 9 9:04AM By DARSHANA TORRES MD ; [facility] Lisinopril-hydroCHLOROthiazi de 20-12.5 MG TABS 07/07/2009 - 08/06/2009 Provider: DARSHANA HEATON M.D. Diagnosis: Last Documented On 07/07/2009 8:34AM By Rosy ALVA ; [facility] Xyzal 5 MG OR TABS 06/19/2009 - 2009 Provider: STEVEN FLORES PA-C Diagnosis: DRUG ALLERGY NEC Last Documented On 06/19/2009 9:49PM By STEVEN FLORES PA-C ; [facility] [place] 180 MG OR TABS 06/09/2009 - 12/06/2009 Provide r: STEVEN FLORES PA-C Diagnosis: Last Documented On 06/09/2009 12:56PM By STEVEN FLORES PA-C ; [facility] oxyBUTYnin Chloride 5 MG OR TABS 06/03/2009 - 07/03/20 Provider: Diagnosis: Last Documented On 07/05/2009 11:25AM By Jonny Lamb ; [facility] Advair Diskus 250-50 MCG/[facility] 05/13/2009 - 06/10/2009 Provider: TANNER GRIFFITH PA-C Diagnosis: COUGH Last Documented On 05/13/2009 9:31AM By TANNER MYERS ; [facility] Ventolin HFA 108 (90 Base) MCG/ACT IN AERS 05/13/2009 - 06/12/2009 Provider: TANNER GRIFFITH PA-C Diagnosis: COUGH 2 puffs q 4-6 hours prn. Last Documented On 05/13/2009 9:31AM By TANNER MYERS ; [facility] Singulair 10 MG OR TABS 05/05/2009 - 05/19/2009 Provider: STEVEN Banegas Diagnosis: PNEUMONIA, ORGAN ISM NOS Last Documented On 05/05/2009 4:06PM By STEVEN FLORES PA-C ; [facility] Advair Diskus 100-50 MCG/DOSE [facility] 04/20/2009 - 05/18/2009 Provider: STEVEN Banegas Diagnosis: BRONCHITIS NOS one puff twice a day Last Documented On 04/20/2009 9:43AM By STEVEN FLORES PA-C ; [facility] predniSONE 20 MG OR TABS [...] 04/20/2009 9:43AM By STEVEN FLORES PA-C ; [facility] Proventil HFA 108 (90 Base) MCG/ACT IN AERS 04/10/2009 - 05/10/2009 Provider: STEVEN [place] Diagnosis: ACUTE BRONCHITIS 2 puffs every 4-6 hours PRN Last Documented On 04/10/2009 11:51AM By STEVEN FLORES PA-C ; [facility] Tessalon Perles 100 MG OR CAPS 04/10/2009 - 05/10/2009 Provider: STEVEN Banegas Diagnosis: ACUTE BRONCHITIS 1-2 tabs tid PRN Last Documented On 04/10/2009 11:51AM By STEVEN FLORES PA-C ; [facility] Zithromax Z-Kash 250 MG OR TABS 04/10/2009 - 04/15/2009 Provider: STEVEN Banegas Diagnosis: ACUTE BRONCHITIS as directed Last Documented On 04/10/2009 11:51AM By STEVEN FLORES PA-C ; [facility] Simvastatin 20 MG OR TABS 12/30/2008 - 06/28/2009 Prov ider: Diagnosis: Last Documented On 02/09/2009 2:46PM By RACQUEL JIMENEZ ; [facility] Medications Administered Includes: Administered Medications from this encounter No Administered Medications Recorded Vital Signs Includes: Vital Signs from this encounter Vital Name 11/21/2022 03:29P Blood Pressure Sitting (mmHg) 112/60 Height (in) 66.5 Last Documented: On 11/21/2022 3:33PM ; [facility] Results Includes: Results discussed during this encounter [...] 06/14/2022 Last Documented On 3 3:29PM ; [facility] Personal history plans to retire 10/05 0 05/27/2017 Last Documented On 3 3:29PM ; [facility] Alcohol use: 2 drinks or less per day RA RELY 05/27/2017 Last Documented On 3 3:29PM ; [facility] Education history 05/27/2017 Last Documented On 3 3:29PM ; [facility] In monogamous relationship 05/27/2017 Last Documented On 3 3:29PM ; [facility] Marital history 05/27/2017 Last Documented On 3 3:29PM ; [facility] Non-smoker 05/27/2017 Last Documented On 3 3:29PM ; [facility] Sexually active 05/27/2017 Last Documented On 3 3:29PM ; [facility] Smoking status : Never smoker 05/27/2017 Last Documented On 3 3:29PM ; [facility] Social history unchanged 05/27/2017 Last Documented On 3 3:29PM ; [facility] Currently 05/02/2016 Last Documented On 3 3:29PM ; [facility] Educational level 05/02/2016 Last Documented On 3 3:29PM ; [facility] Not using alcohol 05/02/2016 Last Documented On 3 3:29PM ; [facility] Procedures and Surgical History Includes: Procedures from this encounter Procedures Code Diagnosis Performing Provider Service L ocation Service Date injection in a knee joint -Right Last Documented On 3 3:42PM ; [facility] use of tobacco assessment performed 1000F Last Documented On 3 3:33PM ; [facility] review of medications documented 1160F Last Documented On 3 3:44PM ; [facility] encouragement to exercise Last Documented On 3 3:44PM ; [facility] Informed consent obtained Ri s and [...] obtained Last Documented On 3 3:40PM ; [facility] Sodium Hyaluronate, 5 mg for intra-articular injection The right knee was prepped in aseptic technique. I injected Gelsyn viscosupplementation into the right knee using a 22 gauge 1-/2 needle. Patient tolerated the procedure well and post procedure showed no signs of complications. Patient will be seen for the continuation of the series [id number] Last Documented On 3 3:40PM ; [facility] Surgical History Last Updated Surgical / procedural histor y SINUS SURGERY 11/02 ~THYROIDECTOMY 08/2015 benign nodules 05/02/2016 Last Documented On 3 3:29PM ; [facility] Surgical history unchanged 04/13/2015 Last Documented On 3 3:29PM ; [facility] History of total abdominal hysterectomy 04/12/2014 Last Documented On 3 3:29PM ; [facility] History of hysterectomy 06/15/19962012 Last Documented On 3 3:29PM ; [facility] Bilateral salpingo-oophorectomy 03/11/20 Last Documented On 3 3:29PM ; [facility] Breast Biopsy 03/07/2011 Last Documented On 3 3:29PM ; [facility] Stent 01/24/2010 Last Documented On 3 3:29PM ; [facility] History of cholecystectomy 01/24/2010 Last Documented On 3 3:29PM ; [facility] Medical History Includes: Medical History addressed during this encounter Description Last Updated Last mammogram date: 08/201605/27/2017 Last Documented On 3 3:29PM ; [facility] PRIMARY CARE PROVIDER : Dr. Cheryl Shukla ~ DR. GONZALEZ GI ~DR. VALERIO BREAST SPECIALIST 04/13/2015 Last Documented On 3 3:29PM ; [facility] A colonoscopy was performed 09/26/2009 Varinder HERNANDEZ AUG 2014 04/13/2015 Last Documented On 3 3:29PM ; [facility] History of a DEXA of the lateral lumbar spine was performed 06/11/2013 04/13/2015 Last Documented On 3 3:29PM ; [facility] History of Pap smear done 03/11/201203/21 Last Documented On 3 3:29PM ; [facility] History of screening mammogram was perfo rmed 05/06/2014 04/13/2015 Last Documented On 3 3:29PM ; [facility] GERD ~hyperilpidemia ~LISA/BS O DUB ENDOMETRIOSIS ~2004- Bladder ~ ~urge incont. ~status post anterior repair 04/12/2014 Last Documented On 3 3:29PM ; [facility] No recent change in medical history 03/21 Last Documented On 3 3:29PM ; [facility] Result: normal 04/12/2014 Last Documented On 3 3:29PM ; [facility] Result: normal 04/12/2014 Last Documented On 3 3:29PM ; [facility] Status post hysterectomy DUB 04/05/2013 Last Documented On 3 3:29PM ; [facility] History of menopause 04/05/2013 Last Documented On 3 3:29PM ; [facility] LMP: 06/15/1996 04/05/2013 Last Documented On 3 3:29PM ; [facility] Last pap smear date 03/11/2012 03/11/2012 Last Documented On 3 3:29PM ; [facility] History of benign essential hypertension 03/07/2011 Last Documented On 3 3:29PM ; [facility] Taking OTC medications including Mucinex 08/20/2010 Last Documented On 3 3:29PM ; [facility] History of chronic reflux esophagitis Last Documented On 3 3:29PM ; [facility] History of thyroid disorder THYROID NODU LES 01/25/2010 Last Documented On 3 3:29PM ; [facility] Para 2 01/25/2010 Last Documented On 3 3:29PM ; [facility] Vaginal delivery 01/25/2010 Last Documented On 3 3:29PM ; [facility] 2 living children 01/15/2010 Last Documented On 3 3:29PM ; [facility] A mammogram was performed 07/30/0701/15 Last Documented On 3 3:29PM ; [facility] 2 01/15/2010 Last Documented On 3 3:29PM ; [facility] Hypertension 01/15/2010 Last Documented On 3 3:29PM ; [facility] History of essential hypertension 2008 Last Documented On 3 3:29PM ; [facility] Taking medication - prescrip tion Patient currently taking Levaquin. Finished Zithromax. Tussionex helping. Proventil inhaler seems to help for a little while 04/20/2009 Last Documented On 3 3:29PM ; [facility] Taking OTC pain medication /fever. Using Tylenol 04/10/2009 Last Documented On 3 3:29PM ; [facility] History of hypertension 02/09/2009 Last Documented On 3 3:29PM ; [facility] Surgery GALBLADDER 1978 ~BLADDER 02/20 Last Documented On 3 3:29PM ; [facility] Family History Includes: Family History addressed during this encounter Description Last Updated Maternal history of diabetes mellitus Mo ther 05/02/2016 Last Documented On 3 3:29PM ; [facility] Family history of diabetes mellitus Moth er 04/13/2015 Last Documented On 3 3:29PM ; [facility] Family history of hypercholesterolemia F ather 04/13/2015 Last Documented On 3 3:29PM ; [facility] Family history of hypertension Patient, Father 04/13/2015 Last Documented On 3 3:29PM ; [facility] Family history unchanged 04/13/2015 Last Documented On 3 3:29PM ; [facility] Spouse name: DARLING 03/07/2011 Last Documented On 3 3:29PM ; [facility] First child named 01/25/2010 Last Documented On 3 3:29PM ; [facility] No family history of malignant female br east neoplasm 01/25/2010 Last Documented On 3 3:29PM ; [facility] No family history of malignant neoplasm of the large intestine 01/25/2010 Last Documented On 3 3:29PM ; [facility] No family history of malignant neoplasm of the ovary 01/25/2010 Last Documented On 3 3:29PM ; [facility] No family history of uterine cancer 05/2010 Last Documented On 3 3:29PM ; [facility] Second child named 01/25/2010 Last Documented On 3 3:29PM ; [facility] Family history of Diabetes (m) 0 Last Documented On 3 3:29PM ; [facility] Family medical history of high blood pre ssure &hyperlipidemia(F) 01/15/2010 Last Documented On 3 3:29PM ; [facility] Brother BLOCKED ARTERIES 2008 Last Documented On 3 3:29PM ; [facility] Brother HAS MS 02/09/2009 Last Documented On 3 3:29PM ; [facility] Father 02/09/2009 Last Documented On 3 3:29PM ; [facility] Heart disease 02/09/2009 Last Documented On 3 3:29PM ; [facility] Mother 02/09/2009 Last Documented On 3 3:29PM ; [facility] Review of Systems Includes: Review of Systems [...] ctive Last Documented On 3 3:29PM ; [facility] Fish Oil Allergy THROAT, MOUTH AND EARS ITCH 04/12/2014 Active Last Documented On 3 3:29PM ; [facility] CeleBREX Allergy 02/09/2009 Active Last Documented On 3 3:29PM ; [facility] Encounters Encounter Provider Location Date Check-In Time Check-Out Time Diagnosis FOLLOW UP SHAQ Banegas [facility] 11/21/19 23 3:24PM 3:38PM Osteoarthritis Localized Primary Knee Right Insurance Includes: Active Insurance Policies Plan Name Member ID Group # Subscriber Relationship Effect grant Dates 1 - [facility]/MEDICARE ADV/[employer] [id number] BRIGIAD lieberman Clinical Notes Includes: Clinical Notes from this encounter * Progress note Date Encounter Last Documented by 11/21/2022 FOLLOW UP Last documented on 11/21/2022; 3:45 PM, SHAQ Banegas; [facility] Active Problems & Conditions - 285.9 - Anemia - 610.2 - Breast Fibroadenosis Chronic - pt s/p removal and all mammogram performed by Dr. 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 Using Tylenol, and [id number] medications including Mucinex. Tests: A mammogram was [...]
[2025-01-05 15:31] LABS: Basophils Absolute Auto 0.1 K/mm3 (0.0-0.1); Basophils Percent Auto 0.9 % (0.2-1.2); Eosinophils Absolute Auto 0.1 K/mm3 (0-0.3); Eosinophils Percent Auto 0.8 % (0-4.4); Hematocrit 39.1 % (37.0-47.0); Hemoglobin 12.8 g/dL (12.0-15.0); Immature Granulocyte Absolute 0.02 K/mm3 (0.00-0.031); Immature Granulocyte Percent A 0.3 % (0-0.5); Lymphocytes Absolute Auto 2.51 K/mm3 (0.9-3.2); Lymphocytes Percent Auto 31.4 % (18.3-44.2); Mean Corpuscular HGB Conc 32.7 g/dl (32-36); Mean Corpuscular Hemoglobin 27.8 pg (26-34); Mean Platelet Volume 9.7 fl (7.4-10.4); Monocytes Absolute Auto 0.7 K/mm3 (0.1-0.6); Monocytes Percent Auto 8.4 % (2.6-8.5); Neutrophils Absolute Auto 4.7 K/mm3 (1.3-6.7); Neutrophils Percent Auto 58.2 % (45.5-73.1); Platelet Count Result 389 k/mm3 (150-375); Red Cell Distribution Width 14.8 % (11.5-14.5)
[2025-01-05 15:55] LABS: Anion Gap 11 mmol/L (4-12); Blood Urea Nitrogen 13 mg/dL (7-17); Carbon Dioxide 24 mmol/L (22-30); Chloride 98 mmol/L (98-107); Estimated Glomerular Filt Rate > 60; Glucose 101 mg/dL (65-110); Potassium 3.8 mmol/L (3.4-5.0); Sodium 133 mmol/L (137-145)
[2025-01-05 16:43] LABS: MRSA (PCR) NOT DETECTED (NOT DETECTE)
== END 2025-01-05 13:38 | disposition home or self-care (01) ==
LOC: ANHSURGERY 13:41
PROVIDERS: Anesthesiology; PCP Internal Medicine Infectious Disease; Visit Provider Orthopaedic Surgery
DX: Z01.812 Encounter for preprocedural laboratory examination (principal); S42.92XP Fracture of left shoulder girdle, part unspecified, subsequent encounter for fracture with malunion; X58.XXXD Exposure to other specified factors, subsequent encounter; I10 Essential (primary) hypertension
CPT/HCPCS: 36415; 80048; 85025; 87641

== ENCOUNTER 2025-02-07 00:40 | Day surgery (SDC) | payer MEDICARE, SELFPAY ==
--- NOTE | 2025-01-05 13:54 | PC.NURSE ---
Report to the Outpatient Waiting Room, entrance under the green pavilion located off [facility], at time _10 AM on date _02/07/25 . Planned Procedure Time: __1200 NOON .? Time changes happen often and if your time is changed the preop area will call you the afternoon before. - You and your visitor will be asked to self-screen and do not enter if you have any COVID symptoms. Please call surgeon if you need to reschedule. - A mask is optional within the hospital at this time. Patients may have clear liquids (water, carbonated beverages, clear teas, apple juice) until 3 hours prior to surgery ( 9AM) with a maximum of 20 ounces. - No food from midnight until time of surgery and no smoking, or chewing tobacco (or any form of nicotine). No chewing gum, candy or mints. - Take only the following medications with a SIP of water on the morning of surgery: __AMIODARONE,_GABAPENTIN,HYDRALAZINE,LEVOTHYROXINE,METOPROLOL DO NOT STOP ANY OF YOUR OTHER PRESCRIPTION MEDICATIONS PRIOR TO SURGERY EXCEPT THE FOLLOWING Hold all vitamins and supplements for 3 days per anesthesiologist. LAST DOSE 02/03/25 Medications to discontinue per physician _PT STATES HOLD___ELIQUIS___3 DAYS PER OP PER DR KIRKLAND Date to take last dose 02/03/25 Please no make-up, nail chinese, hairspray, perfume, deodorant, or body powder the day of surgery.? No jewelry (including any body piercings) or valuables the day of surgery, leave them at home.? Please take a shower or bath the night before, or the morning of, surgery with an antibacterial soap.? Wear comfortable, loose fitting clothing.? Children are encouraged to wear pajamas. - Jewelry must be removed prior to entering the operating room.? Rings and piercings that are not removed may be cut off. - The hospital will not accept responsibility for valuables.? - Please leave all valuables, including medications, at home the day of surgery. If you are going home after surgery, a licensed medical delivery driver must drive you home.? - NO public transportation without another adult if you receive anesthesia. - We recommend that an adult stay with you for 24 hours following discharge. - We also recommend that you do not drive, make important decision, drink alcoholic beverages, or take any drugs that were not prescribed by your health care provider for at least 24 hours after your discharge time. For Pediatric surgeries, we recommend two adults accompany the child home. Follow any additional instructions given to you from your surgeon. VERBAL AND WRITTEN instructions given to _PATIENT and asked if any additional questions and then verbalized understanding. Patient advised to call surgeon office or pre surgery nurse liaison [phone] if any additional questions.
[2025-01-05 13:57] VITALS: BMI 29.5
[2025-01-05 14:40] VITALS: BP 153/88; PULSE 74; RESP 18; TEMP 36.6; O2SAT 99
[2025-02-07] VITALS (18 sets, daily range): BP systolic 124–163; BP diastolic 58–93; PULSE 55–88; RESP 12–21; TEMP 36.1–36.9; O2SAT 94–100
--- NOTE | ~2025-02-07 | XR_ITS ---
EXAMINATION: XR shoulder LT min 2V DATE: 02/08/2025 11:57 INDICATION: Status post left reverse total shoulder arthroplasty TECHNIQUE: AP, Grashey and transscapular Y views of the left shoulder were obtained. COMPARISON: 02/07/2025 and 12/30/2024 FINDINGS: Again seen is a recently placed noncemented left reverse total shoulder arthroplasty which is in near -anatomic alignment. Old healed fracture deformity at the surgical neck and greater tuberosity of the proximal left humerus. No acute fracture. Moderate acromioclavicular osteoarthritis. Expected postop erative soft tissue gas about the arthroplasty. Visualized portions of the lungs are clear. IMPRESSION: Reverse left total shoulder arthroplasty in near-anatomic alignment, negative for postoperative purpo ses. Reviewed, dictated and finalized at location A. IMPRESSION: Reverse left total shoulder arthroplasty in near-anatomic alignment, negative f or postoperative purposes.
--- NOTE | ~2025-02-07 | XR_ITS ---
EXAMINATION: XR surgery orthopedic DATE: 02/07/2025 14:37 INDICATION: Intraoperative radiograph during left total shoulder arthroplasty. TECHNIQUE: Single AP view of the left shoulder was obtained. COMPARISON: 09/22/2024 FINDINGS: Interval placement of a reverse left total shoulder arthroplasty which appears well seated in near-an atomic alignment. Again seen is an old healed fracture deformity at the surgical neck of the proximal left humerus. No acute fracture identified. Tape-like radiopaque foreign body external to the patien t projects of the lateral aspect of the left shoulder. Expected soft tissue gas at the operative bed. IMPRESSION: 1. Old healed fracture at the surgical neck of the proximal left humerus with interval placement of a reverse left total shoulder arthroplasty which appears in near-anatomic alignment. Reviewed, dictated and finalized at location A. IMPRESSION: 1. Old healed fracture at the surgical neck of the proximal left humerus with i nterval placement of a reverse left total shoulder arthroplasty which appears i n near-anatomic alignment.
--- OUTSIDE RECORDS SUMMARY | 2025-02-07 00:43 | XMS_ITS | Encounter Summary ---
Author Organization [facility] Healthcare Address [address] [place] [address] Care Team Providers Care Medical Assistant Ob Gyn Name Role Phone Jh Tena MD Unavailable [phone] Carmen Hurst MD Unavailable Reji Clarke DO Unavailable [phone] Nathan Cross MD Primary Care Provider [phone] Vaughn Melendez MD Unavailable [phone] Frederick Burton DMD Unavailable [phone] Doris Brenner DO Unavailable [phone] Obdulio Kumar MD Unavailable Catracho Fernandez MD Unavailable [phone] El Vo MD Unavailable [phone] Pati Yang NP Unavailable [phone] Encounter Details Date Type Department Care Team (Late st Contact Info) Description 05/06/2024 Orders Only [facility] [address] [place] [address] Scanning, Provider Social History Tobacco [...] on file Legal 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 Gender Identity Female 05/03/2020 10:38 PM CDT [...] on filedocumented in this encounter Care Teams Medical Assistant Ob Gyn Relationship Specialty Start Date End Date Nathan Cross MD [address] [place] [address] PCP - General Infectious Diseases 02/17/20 Jh Tena MD Consulting Physician Cardiology 01/08/18 Carmen Hurst MD Consulting Physician Neurology 01/08/18 Reji Clarke DO [address] [place] [address] Referring Physician Orthopedic Surgery 08/17/19 Vaughn Melendez MD [address] [place] [address] Consulting Physician Gastroenterology 08/03/20 Frederick Burton, ALFRED [address] [place] [address] Dentist Dental Flow Match Sofa Cutter 04/12/21 Doris Brenner DO [address] [place] [facility] [address] [place] [address] Consulting Physician Otolaryngology 12/28/21 Obdulio Kumar MD [address] [place] [address] [address] [place] [address] Consulting Physician Gastroenterology 04/03/23 [place] [address] [address] Consulting Physician Orthopedic Surgery 04/24/23 El Vo MD [address] [address] Referring Physician Orthopedic Surgery 10/15/23 Pati Yang NP [address] [address] Nurse Practitioner Cardiology 03/31/24 documented as of this encounter
--- OUTSIDE RECORDS SUMMARY | 2025-02-07 00:43 | XMS_ITS | Encounter Summary ---
Author Organization [facility] Address [address] [place] [address] Care Team Providers Care Telepathist Name Role Phone Cheryl Shukla MD Primary Care Provider [phone] Encounter Details Date Type Department Care Team (Late st Contact Info) Description 09/22/2008 Outpatient Historical [facility] LUIS Valerio, Valeria Adrian MD [address] [place] [id number] Social History Tobacco Use Types Packs/Day Years Used Date Smoking Tobacco: Never Assessed Comments Unknown Sex and Gender Information Value Date Recorded Sex Assigned at Not on file Legal Sex Female 5:40 AM REACH TRUCK OPERATOR Gender Identity Not on file Sexual Orientation Not on file documented as of this encounter Plan of Treatment Not on file documented as of this encounter Procedures Procedure Name Priority Date/Time Associated Diagnosis Comments PATHOLOGY Routine 09/22/2008 1:37 PM REACH TRUCK OPERATOR MAMMO BREAST SPECIMEN RT Routine 09/22/2008 1:10 PM REACH TRUCK OPERATOR MAMMO NEEDLE LOC EA LESION RT Routine 09/22/2008 12:20 PM REACH TRUCK OPERATOR XR CONSULTATION Routine 09/22/2008 12:20 PM REACH TRUCK OPERATOR MAMMO DIAGNOSTIC UNI RIGHT W OR WO CAD Routine 09/22/2008 12:20 PM REACH TRUCK OPERATOR HEMOGLOBIN AND HEMATOCRIT Stat 09/22/2008 10:55 AM REACH TRUCK OPERATOR BASIC METABOLIC PANEL Stat 09/22/2008 10:55 AM REACH TRUCK OPERATOR documented in this encounter Results * PATHOLOGY (09/22/2008 1:37 PM REACH TRUCK OPERATOR) FINAL REPORT [facility] [address] [place], [place] [address] Patient: BRIGIDA ORDAZ : 1950 Procedure Date: 09/22/2008 Accession Date: 09/22/2008 Case No: [id number] Ordering Dr: VALERIA VALERIO Case types AW, BW, FW, NW and SH are performed by [facility], [place], [place] SURGICAL PATHOLOGY & NON-GYNECOLOGIC CYTOPATHOLOGY REPORT [...] A12-A13, and A14- A15 represent composite sections. [facility]/S 09.23.2008 07:09 am Microscopic: The slides are labeled [id number], Brigida Ordaz. Sections of the right breast [...] first-degree relative. Reference: Arch Pathol Lab Med 1998;122:[id number]. CJ/MARIAN 09.26.2008 12:40 pm Staging Form: No. ELECTRONIC SIGNATURE FOR LILA MENDOZA MD- 09/26/08 02:35 pm INTERFACE SYSTEM 09/22/2008 1:37 PM REACH TRUCK OPERATOR us Valeria Valerio MD PATHOLOGY/CYTOLOGY ORDERABLE S Final Result INTERFACE SYSTEM Refer to clinic/hospital department * MAMMO BREAST SPECIMEN RT (09/22/2008 1:10 PM REACH TRUCK OPERATOR) Anatomical Region Laterality Modality Breast Right Other 09/22/2008 1:10 PM REACH TRUCK OPERATOR Narrative 09/23/2008 4:42 PM REACH TRUCK OPERATOR [facility] [address] [place], [place] [address] Admit Date: 09/22/2008 BRIGIDA ORDAZ Sex: F Admit Prov: VALERIA VALERIO Date: 1950 Primary Care Prov: CMRN: [id number] Room: [facility] SSN: [id number] IMAGING SERVICES Ordering Prov: VALERIA VALERIO Accession Number: [id number] Interpretation RIGHT BREAST NEEDLE LOCALIZATION, FOLLOW UP [...] AMK Procedure Note Viviana Rehman - 09/23/2008 [place] [address] [place], [place] [address] Admit Date: 09/22/2008 BRIGIDA ORDAZ Sex: F Admit Prov: VALERIA VALERIO Date: 1950 Primary Care Prov: CMRN: [id number] Room: [facility] N: [id number] IMAGING SERVICES Ordering Prov: VALERIA VALERIO Interpretation [...] t * XR CONSULTATION (09/22/2008 12:20 PM REACH TRUCK OPERATOR) 09/22/2008 12:2 0 PM REACH TRUCK OPERATOR Narrative INTERFACE SYSTEM - 10/06/2008 10:38 AM REACH TRUCK OPERATOR [place] [address] [place], [place] [address] Admit Date: 09/22/2008 BRIGIDA ORDAZ Sex: F Admit Prov: VALERIA VALERIO Date: 1950 Primary Care Prov: CMRN: [id number] Room: [facility] SSN: [id number] IMAGING SERVICES Ordering Prov: VALERIA VALERIO Accession Number: [id number] Addendum Pathology indicates atypical lobular hyperplasia with [...] AMK Procedure Note Viviana Rehman - 10/06/2008 [place] [address] [place], [place] [address] Admit Date: 09/22/2008 BRIGIDA ORDAZ Sex: F Admit Prov: VALERIA VALERIO Date: 1950 Primary Care Prov: CMRN: [id number] Room: [facility] SSN: [id number] IMAGING SERVICES Ordering Prov: VALERIA VALERIO Addendum [...] DIGITAL DIAG UNI RIGHT (09/22/2008 12:20 PM REACH TRUCK OPERATOR) Anatomical Region Laterality Modality Breast Right Other 09/22/2008 12:2 0 PM REACH TRUCK OPERATOR Narrative 09/23/2008 4:42 PM REACH TRUCK OPERATOR [place] [address] [place], [place] [address] Admit Date: 09/22/2008 BRIGIDA ORDAZ Sex: F Admit Prov: VALERIA VALERIO Date: 1950 Primary Care Prov: CMRN: [id number] [facility] [address] [place] [address] IMAGING SERVICES Ordering Prov: VALERIA VALERIO Accession Number: [id number] Interpretation RIGHT BREAST NEEDLE LOCALIZATION, FOLLOW UP [...] AMK Procedure Note Viviana Rehman - 09/23/2008 [place] [address] [place], [place] [address] Admit Date: 09/22/2008 BRIGIDA ORDAZ Sex: F Admit Prov: TEODORO VALERIA Date: 1950 Primary Care Prov: CMRN: [id number] Room: [facility] SSN: [id number] IMAGING SERVICES Ordering Prov: KINDRASHALOM VALERIA Interpretation [...] LOC EA LESION RT (09/22/2008 12:20 PM REACH TRUCK OPERATOR) Anatomical Region Laterality Modality Breast Right Other 09/22/2008 12:2 0 PM REACH TRUCK OPERATOR Narrative 09/23/2008 4:42 PM REACH TRUCK OPERATOR [place] [address] [place], [place] [address] Admit Date: 09/22/2008 BRIGIDA ORDAZ Sex: F Admit Prov: VALERIA VALERIO Date: 1950 Primary Care Prov: CMRN: [id number] [facility]: [id number] IM[facility]ING SERVICES Ordering Prov: VALERIA VALERIO Accession Number: [id number] Interpretation RIGHT BREAST NEEDLE LOCALIZATION, FOLLOW UP [...] AMK Procedure Note Viviana Rehman - 09/23/[address] [address] Admit Date: 09/22/2008 BRIGIDA ORDAZ Sex: F Admit Prov: VALERIA VALERIO Date: 1950 Primary Care Prov: CMRN: [id number] Room: [facility] SSN: [id number] IMAGING SERVICES Ordering Prov: VALERIA VALERIO Interpretation [...] * BASIC METABOLIC PANEL (09/22/2008 10:55 AM REACH TRUCK OPERATOR) GLUCOSE 97 65 - 99 mg/dL [facility] SODIUM 136 135 - 145 mmol/L [facility] CALCIUM 9.5 8.6 - 10.2 mg/dL [facility] CO2 23 22 - 30 mmol/L [facility] POTASSIUM 3.9 3.5 - 4.9 mmol/L [facility] BUN 10 6 - 20 mg/dL [facility] CREATININE 0.61 0.51 - 0.95 mg/dL [facility] CHLORIDE 101 96 - 108 mmol/L [facility] GFR, >60 >=60 mL/min/1.7 sq meter [facility] GFR >60 >=60 mL/min/1.7 sq meter [facility] Comment: Modification of Diet in Renal Disease (MDRD) study formula. Estimated GFR rate interpretative information for both Americans and non- Americans is available on the [facility] Intranet at: [email or web address] Select: Lab Policies and Procedures Select: Reference Ranges - GFR Blood specimen (specimen) 09/22/2008 10:55 AM REACH TRUCK OPERATOR 09/22/2008 11:09 AM REACH TRUCK OPERATOR Valeria Valerio MD CHEMISTRY ORDERABLES Edited Performing Organization Address [facility] de Phone Number INTERFACE SYSTEM Refer to clinic/hospital department [facility] CLIA# [id number] [address] [place] [address] * HEMOGLOBIN AND HEMATOCRIT (09/22/2008 10:55 AM REACH TRUCK OPERATOR) HEMOGLOBIN 13.8 11.8 - 14.8 g/dL [facility] HEMATOCRIT 40.9 35.5 - 44.0 % [facility] Blood specimen (specimen) 09/22/2008 10:55 AM REACH TRUCK OPERATOR 09/22/2008 11:09 AM REACH TRUCK OPERATOR Narrative INTERFACE SYSTEM - 09/22/2008 11:33 AM REACH TRUCK OPERATOR [id number] Valeria Valerio MD HEMATOLOGY ORDERABLES Final Result Performing Organization Address [facility] de Phone Number INTERFACE SYSTEM Refer to clinic/hospital department [facility] CLIA# [id number] [address] [place] [address] documented in this encounter Visit Diagnoses Not on filedocumented in this encounter Care Teams Telepathist Relationship Specialty Start Date End Date Cheryl Shukla MD PCP - General Internal Medicine 08/21/12 documented as of this encounter
--- OUTSIDE RECORDS SUMMARY | 2025-02-07 00:43 | XMS_ITS | Clinical Summary ---
Author Organization [facility] Administrative Offices Address [address] [place] [address] Care Team Providers Care Banking Attorney Name Role Phone Cheryl Shukla MD Primary Care Provider [phone] Allergies Active Allergy Reactions Criticality Noted Date [...] tablet Take 125 mcg by mouth daily assistant unit forester. Active dexlansoprazole (DEXILANT) 60 mg Delayed Release capsule Take 60 mg by mouth daily. Active LIVALO 2 mg Tablet 07/27/2016 Active oxybutynin chloride (DITROPAN) 5 mg tablet 08/26/2016 Active MOXIFLOXICIN 0.5 % solution 06/13/2016 Active Active Problems Patient Care Coordination No te Formatting of this note migh t be different from the original. Primary Care: Cheryl Shukla MD Referring Provider: Cheryl Shukla MD [address] [place] [address] [address] [place] [address] Other: Dr Valeria Bush Problem Noted Date [...] on file Legal Sex Female 5:40 AM INSPECTOR MACHINED PARTS Gender Identity Not on file Sexual Orientation Not on file Occupation Industry Job Start Date Job End Date Not on file Not on file Not on file Not on file Last Filed Vital Signs Vital Sign Reading Time Taken Comments Blood Pressure 138/76 09/29/2017 11:22 AM INSPECTOR MACHINED PARTS Pulse 74 09/20/2016 12:41 PM INSPECTOR MACHINED PARTS Temperature - - Respiratory Rate - - Oxygen Saturation - - Inhaled Oxygen Concentration - - Weight 108.1 kg (238 lb 5.1 oz) 017 11:22 AM INSPECTOR MACHINED PARTS Height 167.6 cm (5' 6 ) 09/29/2017 11:2 2 AM INSPECTOR MACHINED PARTS Body Mass Index 38.47 09/29/2017 11:22 AM INSPECTOR MACHINED PARTS Plan of Treatment Health Maintenance Due Date [...] OR WO CAD Routine 09/29/2017 11:01 AM INSPECTOR MACHINED PARTS Visit for screening mammogram from Last 3 Months or Most Recently Relevant to Health Maintenance Results * MAMMO DIG SCREEN BILAT W 3D CORNELL (09/29/2017 11:01 AM INSPECTOR MACHINED PARTS) Anatomical Region Laterality Modality Breast Bilateral Mammography 09/29/2017 11:0 1 AM INSPECTOR MACHINED PARTS Impressions 09/30/2017 11:11 AM INSPECTOR MACHINED PARTS IMPRESSION: No mammographic evidence of malignancy. RECOMMENDATIONS: Routine screening mammogram in one year. Dictated from: Ange Cuevas 09/30/2017 11:11 AM INSPECTOR MACHINED PARTS BILATERAL FULL-FIELD DIGITAL SCREENING MAMMOGRAM WITH CAD [...] Relevant to Health Maintenance Insurance Care Teams Banking Attorney Relationship Specialty Start Date End Date Cheryl Shukla MD PCP - General Internal Medicine 08/21/12
--- OUTSIDE RECORDS SUMMARY | 2025-02-07 00:43 | XMS_ITS ---
Care Plan - [facility] Created on: February 07, 2025 MONAE PRESCOTT : 1950 Sex: Female Author Organization [facility] Address [address] [place] [address] Phone Care Team Providers Care Auto Brake Technician Name Role Phone JUNAID SONI, MILENA Banegas Unavailable [phone] MABEL MULLINS Primary Care Provider [phone]
--- OUTSIDE RECORDS SUMMARY | 2025-02-07 00:43 | XMS_ITS | Clinical Summary ---
Author Organization [facility] Address [address] [place] [address] Phone Care Team Providers Care Pastry Sous Chef Name Role Phone MILENA QUIROGA MD Unavailable [phone] MABEL MULLINS Primary Care Provider [phone] Reason for Visit and Chief Complaint The Chief Complaint is: Right knee Gelsyn 3 2nd injection Problems Includes: Problems addressed during this encounter and other active Problems Current Visit Onset Date Resolved Date Provider Conditio n Status Osteoarthritis Localized Primary Knee Right 09/27/2022 SHAQ Banegas Active Last Documented On 2 10:05AM ; [facility] History of Prior Surgery: Stent 04/12/2014 LEAH BRUNO RN JN Active Last Documented On 4 8:44AM ; [facility] Note: Unchanged History of Hysterectomy 04/05/2013 MAY Landeros RN JN Active Last Documented On 3 1:24PM ; [facility] Note: Unchanged Past Visits Onset Date Resolved Date Provider Condition Status Joint Pain in the Right Knee on the Inner Side 06/14/2022 SHAQ Banegas Active Last Documented On 2 1:24PM ; [facility] Anemia 04/16/2015 MAY BRUNO RN JN Active Last Documented On 5 1:16PM ; [facility] Colonic Diverticulosis 04/16/2015 MAY BRUNO RN JN [place] Active Last Documented On 5 1:15PM ; [facility] URGE INCONTINENCE 03/07/2011 CHRISSIE ROSADO M.D. Active Last Documented On 1 10:51AM ; [facility] Breast Fibroadenosis Chronic 01/25/2010 MAY BRUNO RN WHN P BC Active Last Documented On 04/13/2015 8:29AM ; [facility] Note: pt s/p removal and all mammogram p erformed by Dr. Clifford at [facility] CYST OF THYROID 01/25/2010 CHRISSIE RODRIGUEZ M.D. Active Last Documented On 01/25/2010 1:41PM ; [facility] Note: pt to see ent and trench digger helper Esophageal Reflux 01/15/2010 DARSHANA TORRES MD Active Last Documented On 0 10:38PM ; [facility] Hyperlipidemia 02/09/2009 DARSHANA TORRES MD [...] use Last Documented On 3 3:14PM ; [facility] Medical Equipment - Implanted Devices Includes: [...] 06/14/2022 1:15PM By MARCY BHAT LPN ; [facility] Gabapentin 100 MG Oral Capsule 06/14/2022 Provider: Diagnosis: Last Documented On 06/14/2022 1:15PM By MARCY BHAT LPN ; [facility] Valsartan-hydroCHLOROthiazide 320-25 MG Oral Tablet Provider: Diagnosis: Last Documented On 06/14/2022 1:12PM By MARCY BHAT LPN ; [facility] NexIUM 40 MG Oral Capsule Delayed Release 06/14/2022 Provider: Diagnosis: Last Documented On 06/14/2022 1:12PM By MARCY BHAT LPN ; [facility] Furosemide 40 MG Oral Tablet 06/14/2022 Provider: Diagnosis: Last Documented On 06/14/2022 1:11PM By MARCY BHAT LPN ; [facility] Amiodarone HCl 200 MG Oral Tablet 06/14/2022 Provide r: Diagnosis: Last Documented On 06/14/2022 1:10PM By MARCY BHAT LPN ; [facility] Xarelto 20 MG Oral Tablet 06/14/2022 Provider: Diagnosis: Last Documented On 06/14/2022 1:10PM By MARCY BHAT LPN ; [facility] Calcium 600 MG Tablet 05/02/2016 Provider: Diagnosis: Last Documented On 05/02/2016 2:58PM By CLAUDIA REYES MA ; [facility] Multi Vitamin Daily Tablet 05/02/2016 Provider: Diagnosis: Last Documented On 05/02/2016 2:58PM By CLAUDIA REYES MA ; [facility] Irbesartan 300 MG Tablet 05/02/2016 Provider: Diagnosis: Last Documented On 05/02/2016 2:58PM By CLAUDIA REYES MA ; [facility] Metoprolol Succinate ER 25 MG Tablet Extended Re lease 24 Hour 05/02/2016 Provider: Diagnosis: Last Documented On 05/02/2016 2:57PM By CLAUDIA REYES MA ; [facility] Levothyroxine Sodium 175 MCG Tablet 05/02/2016 Provi blu: Diagnosis: Last Documented On 05/02/2016 2:57PM By CLAUDIA REYES MA ; [facility] oxyBUTYnin Chloride 5 MG OR TABS 04/12/2014 Provider : Diagnosis: Last Documented On 04/12/2014 8:27AM By AIRAM SARAVIA ; [facility] Livalo 1 MG OR TABS 04/12/2014 Provider: Diagnosis: Last Documented On 04/12/2014 8:27AM By AIRAM SARAVIA ; [facility] Past Medications on file Terconazole 0.8% VA CREA 04/05/2013 - 04/14/2013 Provider: MAY BRUNO RN [facility] Diagnosis: CANDIDAL VULVOVA GINITIS 1 PAULA IN VAGINA EVERY NIGHT X 3 APPLY BID TO EXTERNAL AREA Last Documented On 3 1:26PM By MAY BRUNO [place]- ; [facility] Diflucan 150 MG OR TABS 03/13/2012 - 03/14/2012 Provider: CHRISSIE ROSADO M.D. Diagnosis: CANDIDAL VULVOVA GINITIS 1 po x 1 day Last Documented On 2 12:45PM By DR. CHRISSIE ROSADO ; [facility] oxyBUTYnin Chloride 5 MG OR TABS 07/01/2011 - 12/28/2011 Provider: DARSHANA KAPOOR MD Diagnosis: Last Documented On 1 12:11AM By DARSHANA TORRES MD ; [facility] Aciphex 20 MG OR TBEC 05/27/2011 - 08/25/2011 Provider : MERY KAUFFMAN PA-C Diagnosis: Last Documented On 1 4:37PM By MERY KAUFFMAN PA-C ; [facility] Lisinopril-hydroCHLOROthiazi de 20-12.5 MG TABS 04/29/2011 - 08/27/2011 Provider: STEVEN FLORES PA-C Diagnosis: 1 qd #30 Last Documented On 04/29/2011 12:46PM By STEVEN FLORES PA-C ; [facility] Carbinoxamine Maleate 4 MG OR TABS 03/29/2011 - 05/28/2011 Provider: DARSHANA TORRES MD Diagnosis: ALLERGIC RHINITI S NOS Last Documented On 03/29/2011 1:37PM By Rosy ALVA ; [facility] Oxytrol 3.9 MG/24HR TD PTTW [...] 08/20/2010 5:51PM By STEVEN FLORES PA-C ; [facility] Tussionex Pennkinetic ER 10-8 MG/5ML OR LQCR 08/20/2010 - 09/19/2010 Provider: STEVEN Banegas Diagnosis: BRONCHITIS NOS one tsp po BID PRN Last Documented On 08/20/2010 5:51PM By STEVEN FLORES PA-C ; [facility] Simvastatin 20 MG OR TABS 06/27/2010 - 12/24/2010 Prov ider: STEVEN FLORES PA-C Diagnosis: Last Documented On 06/27/2010 12:04PM By STEVEN FLORES PA-C ; [facility] Flonase 50 MCG/ACT NA SUSP 07/21/2009 - 08/20/2009 Pro vider: TANNER MYERS PA-C Diagnosis: 2 sprays q nare qd Last Documented On 07/21/2009 1:27PM By TANNER MYERS ; [facility] [place] 180 MG OR TABS 07/21/2009 - 08/20/2009 Provide r: TANNER MYERS PA-C Diagnosis: Last Documented On 07/21/2009 1:27PM By TANNER MYERS ; [facility] Protonix 40 MG OR TBEC 07/07/2009 - 07/17/2009 Provider: DARSHANA KAPOOR MD Diagnosis: REFLUX ESOPHAGIT IS Last Documented On 9 9:04AM By DARSHANA TORRES MD ; [facility] Medrol (Kash) 4 MG OR TABS 07/07/2009 - 07/13/2009 Prov ider: DARSHANA TORRES MD Diagnosis: COUGH as directed Last Documented On 9 9:04AM By DARSHANA TORRES MD ; [facility] Lisinopril-hydroCHLOROthiazi de 20-12.5 MG TABS 07/07/2009 - 08/06/2009 Provider: DARSHANA HEATON M.D. Diagnosis: Last Documented On 07/07/2009 8:34AM By Rosy ALVA ; [facility] Xyzal 5 MG OR TABS 06/19/2009 - 2009 Provider: STEVEN FLORES PA-C Diagnosis: DRUG ALLERGY NEC Last Documented On 06/19/2009 9:49PM By STEVEN FLORES PA-C ; [facility] [place] 180 MG OR TABS 06/09/2009 - 12/06/2009 Provide r: STEVEN FLORES PA-C Diagnosis: Last Documented On 06/09/2009 12:56PM By STEVEN FLORSE PA-C ; [facility] oxyBUTYnin Chloride 5 MG OR TABS 06/03/2009 - 07/03/20 Provider: Diagnosis: Last Documented On 07/05/2009 11:25AM By Jonny Lamb ; [facility] Advair Diskus 250-50 MCG/DOSE IN MISC 05/13/2009 - 06/10/2009 Provider: TANNER GRIFFITH PA-C Diagnosis: COUGH Last Documented On 05/13/2009 9:31AM By TANNER MYERS ; [facility] Ventolin HFA 108 (90 Base) MCG/ACT IN AERS 05/13/2009 - 06/12/2009 Provider: TANNER GRIFFITH PA-C Diagnosis: COUGH 2 puffs q 4-6 hours prn. Last Documented On 05/13/2009 9:31AM By TANNER MYERS ; [facility] Singulair 10 MG OR TABS 05/05/2009 - 05/19/2009 Provider: STEVEN Banegas Diagnosis: PNEUMONIA, ORGAN ISM NOS Last Documented On 05/05/2009 4:06PM By STEVEN FLORES PA-C ; [facility] Advair Diskus 100-50 MCG/DOSE IN MISC 04/20/2009 - 05/18/2009 Provider: STEVEN Banegas Diagnosis: BRONCHITIS NOS one puff twice a day Last Documented On 04/20/2009 9:43AM By STEVEN FLORES PA-C ; [facility] predniSONE 20 MG OR TABS 04/20/2009 - 05/02/2009 Provi blu: STEVEN FLORES PA-C Diagnosis: BRONCHITIS NOS 3 x 3 d, 2 x 3d, 1x3d, 1/2 x 3d then d/c Last Documented On 04/20/2009 9:43AM By STEVEN FLORES PA-C ; [facility] Tussionex Pennkinetic ER 10-8 MG/5ML OR LQCR 04/20/2009 - 05/20/2009 Provider: STEVEN Banegas Diagnosis: BRONCHITIS NOS one tsp twice a day PRN Last Documented On 04/20/2009 9:43AM By STEVEN FLORES PA-C ; [facility] Proventil HFA 108 (90 Base) MCG/ACT IN AERS 04/10/2009 - 05/10/2009 Provider: STEVEN [place] Diagnosis: ACUTE BRONCHITIS 2 puffs every 4-6 hours PRN Last Documented On 04/10/2009 11:51AM By STEVEN FLORES PA-C ; [facility] Tessalon Perles 100 MG OR CAPS 04/10/2009 - 05/10/2009 Provider: STEVEN Banegas Diagnosis: ACUTE BRONCHITIS 1-2 tabs tid PRN Last Documented On 04/10/2009 11:51AM By STEVEN FLORES PA-C ; [facility] Zithromax Z-Kash 250 MG OR [...] 06/14/2022 Last Documented On 3 3:11PM ; [facility] Personal history plans to retire 10/05 0 05/27/2017 Last Documented On 3 3:11PM ; [facility] Alcohol use: 2 drinks or less per day RA RELY 05/27/2017 Last Documented On 3 3:11PM ; [facility] Education history 05/27/2017 Last Documented On 3 3:11PM ; [facility] In monogamous relationship 05/27/2017 Last Documented On 3 3:11PM ; [facility] Marital history 05/27/2017 Last Documented On 3 3:11PM ; [facility] Non-smoker 05/27/2017 Last Documented On 3 [...] 04/13/2015 Last Documented On 3 3:11PM ; [facility] A colonoscopy was performed 09/26/2009 [...] 04/13/2015 Last Documented On 3 3:11PM ; [facility] GERD ~hyperilpidemia ~LISA/BS O DUB ENDOMETRIOSIS ~2004- Bladder ~ ~urge incont. ~status post anterior repair 04/12/2014 Last Documented On 3 3:11PM ; [facility] No recent change in medical history 03/21 Last Documented On 3 3:11PM ; [facility] Result: normal 04/12/2014 Last Documented [...] 03/07/2011 Last Documented On 3 3:11PM ; [facility] Taking OTC medications including Mucinex 08/20/2010 Last Documented On 3 3:11PM ; [facility] History of chronic reflux esophagitis Last Documented On 3 3:11PM ; [facility] History of thyroid disorder THYROID NODU LES 01/25/2010 Last Documented On 3 3:11PM ; [facility] Para 2 01/25/2010 Last Documented On 3 3:11PM ; [facility] Vaginal delivery 01/25/2010 Last Documented On 3 3:11PM ; [facility] 2 living children 01/15/2010 Last Documented On 3 3:11PM ; [facility] A mammogram was performed 07/30/0701/15 Last Documented On 3 3:11PM ; [facility] 2 01/15/2010 Last Documented On 3 3:11PM ; [facility] Hypertension 01/15/2010 Last Documented On 3 3:11PM ; [facility] History of essential hypertension 2008 Last Documented On 3 3:11PM ; [facility] Taking medication - prescrip tion Patient currently taking Levaquin. Finished Zithromax. Tussionex helping. Proventil inhaler seems to help for a little while 04/20/2009 Last Documented On 3 3:11PM ; [facility] Taking OTC pain medication /fever. Using Tylenol 04/10/2009 Last Documented On 3 3:11PM ; [facility] History of hypertension 02/09/2009 Last Documented On 3 3:11PM ; [facility] Surgery GALBLADDER 1978 ~BLADDER 02/20 Last Documented On 3 3:11PM ; [facility] Family History Includes: Family History addressed during this encounter Description Last Updated Maternal history of diabetes mellitus Mo ther 05/02/2016 Last Documented On 3 3:11PM ; [facility] Family history of diabetes mellitus [...] ctive Last Documented On 3 3:29PM ; [facility] Fish Oil Allergy THROAT, MOUTH AND EARS ITCH 04/12/2014 Active Last Documented On 3 3:29PM ; [facility] CeleBREX Allergy 02/09/2009 Active Last Documented On 3 3:29PM ; [facility] Encounters Encounter Provider Location Date Check-In Time Check-Out Time Diagnosis FOLLOW UP SHAQ Banegas [facility] 11/14/19 23 2:59PM 3:13PM Osteoarthritis Localized Primary Knee Right Insurance Includes: Active Insurance Policies Plan Name Member ID Group # Subscriber Relationship Effect grant Dates 1 - [facility]/MEDICARE ADV/[employer] [id number] [address] S fede Clinical Notes Includes: Clinical Notes from this encounter * Progress note Date Encounter Last Documented by 11/14/2022 FOLLOW UP Last documented on 11/14/2022; 3:16 PM, SHAQ Banegas; [facility] Active Problems & Conditions - 285.9 - Anemia - 610.2 - Breast Fibroadenosis Chronic - pt s/p removal and all mammogram performed by Dr. Clifford at [facility] - 562.10 - Colonic Diverticulosis - 246.2 - CYST OF THYROID - pt to see ent and trench digger helper - 530.81 - Esophageal Reflux - [...] for a little while, medication for pain [id number] /fever. Using Tylenol, and [id number] medications including Mucinex. Tests: A mammogram was [...]
--- OUTSIDE RECORDS SUMMARY | 2025-02-07 00:43 | XMS_ITS | Encounter Summary ---
Author Organization [facility] Healthcare Address [address] [place] [address] Care Team Providers Care Timber Repairer Name Role Phone Jh Tena MD Unavailable [phone] Carmen Hurst MD Unavailable Luis Alberto Beauchamp MD Unavailable [phone] Reji Clarke DO Unavailable [phone] Nathan Cross MD Primary Care Provider Vaughn Melendez MD Unavailable [phone] Frederick Burton DMD Unavailable [phone] Doris Brenner DO Unavailable [phone] Obdulio Kumar MD Unavailable Catracho Fernandez MD Unavailable [phone] El Vo MD Unavailable [phone] Pati Yang NP Unavailable [phone] Encounter Details Date Type Department Care Team (Late st Contact Info) Description 01/29/2024 Orders Only [facility] [address] [place] [address] Scanning, Provider Social History Tobacco [...] on file 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 Gender Identity Female 05/03/2020 10:38 PM CDT [...] on filedocumented in this encounter Care Teams Timber Repairer Relationship Specialty Start Date End Date Nathan Cross MD [address] [place] [address] PCP - General Infectious Diseases 02/17/20 Jh Tena MD Consulting Physician Cardiology 01/08/18 Carmen Hurst MD Consulting Physician Neurology 01/08/18 Luis Alberto Beauchamp MD [address] [place] [address] Consulting Physician Endocrinology 06/18/19 02/12/24 Reji Clarke DO [address] [place] [address] Referring Physician Orthopedic Surgery 08/17/19 Vaughn Melendez MD [address] [place] [address] DR [address] [place] [address] Consulting Physician Gastroenterology 08/03/20 Frederick Burton DMD [address] [place] [address] Dentist Dental Hybrid Technologist 04/12/21 Doris Brenner DO [address] [place] [address] [address] [address] Consulting Physician Otolaryngology 12/28/21 Obdulio Kumar MD [address] [place] [address] [address] [place] [address] Consulting Physician Gastroenterology 04/03/23 [place] [id number] [address] Consulting Physician Orthopedic Surgery 04/24/23 El Vo MD [address] [facility] [address] [place] [address] Referring Physician Orthopedic Surgery 10/15/23 Pati Yang NP [address] [place] [address] Nurse Practitioner Cardiology 03/31/24 documented as of this encounter
--- OUTSIDE RECORDS SUMMARY | 2025-02-07 00:43 | XMS_ITS | Encounter Summary ---
Author Organization [facility] Healthcare Address [address] [place] [address] Care Team Providers Care Abstract Writer Name Role Phone Jh Tena MD Unavailable [phone] Carmen Hurst MD Unavailable Reji Clarke DO Unavailable [phone] Nathan Cross MD Primary Care Provider Vaughn Melendez MD Unavailable [phone] Frederick Burton DMD Unavailable [phone] Doris Brenner DO Unavailable [phone] Obdulio Kumar MD Unavailable Catracho Fernandez MD Unavailable [phone] El Vo MD Unavailable [phone] Pati Yang NP Unavailable [phone] Encounter Details Date Type Department Care Team (Late st Contact Info) Description 02/04/2025 Results Follow-Up [facility] [address] [place] [id number] Nathan Cross MD [address] [place] [address] Social History Tobacco Use Types Packs/Day Years Used Date Smoking Tobacco: Never Passive Smoke Exposure: Never Smokeless Tobacco: Never Alcohol Use Standard Drinks/Week Comments No 0 (1 standard drink = 0.6 oz pur e alcohol) AUDIT-C Answer Date Recorded Q1: How often do you have a drink containing alc ohol? Monthly or less 01/26/2025 Q2: How many drinks containi ng alcohol do you have on a typical day when you are drinking? 1 or 2 01/26/2025 Q3: How often do you have si x or more drinks on one occasion? Never 01/26/2025 PHQ-2 Answer Date Recorded PHQ-2 Total Score (If total score is 3 or more points, staff should administer the PHQ-9) 0 01/20/2025 Personal Safety Answer Date Recorded Have you ever been in or are you currently in a harmful physical or emotional relationship or is someone making you feel afraid or unsafe? 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 Not on file Not on file documented as of this encounter Plan of Treatment Not on file documented as of this encounter Visit Diagnoses Not on filedocumented in this encounter Care Teams Abstract Writer Relationship Specialty Start Date End Date Ntahan Cross MD [address] [place] [address] PCP - General Infectious Diseases 02/17/20 Jh Tnea MD Consulting Physician Cardiology 01/08/18 Carmen Hurst MD Consulting Physician Neurology 01/08/18 Reji Clarke DO [address] [place] [address] Referring Physician Orthopedic Surgery 08/17/19 Vaughn Melendez MD [address] [place] [address] Consulting Physician Gastroenterology 08/03/20 Frederick Burton DMD [address] [place] [address] Dentist Dental X Ray Operator 04/12/21 Doris Brenner DO [address] [facility] [address] [address] Consulting Physician Otolaryngology 12/28/21 Obdulio Kumar MD [address] [facility] [address] [place] [address] Consulting Physician Gastroenterology 04/03/23 [place] [address] [address] Consulting Physician Orthopedic Surgery 04/24/23 El Vo MD [address] [address] Referring Physician Orthopedic Surgery 10/15/23 Pati Yang NP [address] [address] Nurse Practitioner Cardiology 03/31/24 documented as of this encounter
--- OUTSIDE RECORDS SUMMARY | 2025-02-07 00:43 | XMS_ITS | Encounter Summary ---
Author Organization [facility] Healthcare Address [address] [place] [address] Care Team Providers Care Director Of Strategic Sales Name Role Phone Jh Tena MD Unavailable [phone] Carmen Hurst MD Unavailable Reji Clarke DO Unavailable [phone] Nathan Cross MD Primary Care Provider [phone] Vaughn Melendez MD Unavailable [phone] Frederick Burton DMD Unavailable [phone] Doris Brenner DO Unavailable [phone] Obdulio Kumar MD Unavailable Catracho Fernandez MD Unavailable [phone] El Vo MD Unavailable [phone] Pati Yang NP Unavailable [phone] Encounter Details Date Type Department Care Team (Late st Contact Info) Description 01/08/2025 Results Follow-Up [facility] [address] [place] [phone] Nathan Cross MD [address] [place] [address] Social History Tobacco Use Types Packs/Day Years [...] on file Legal 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 Female 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 Gender Identity Female 05/03/2020 10:38 PM CDT Sexual Orientation Straight 05/03/2020 10 :38 PM CDT 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 Not on file Not on file documented as of this encounter Plan of Treatment Not on file documented as of this encounter Visit Diagnoses Not on filedocumented in this encounter Care Teams Director Of Strategic Sales Relationship Specialty Start Date End Date Nathan Cross MD [address] [place] [address] PCP - General Infectious Diseases 02/17/20 Jh Tena MD Consulting Physician Cardiology 01/08/18 Carmen Hurst MD Consulting Physician Neurology 01/08/18 Reji Clarke DO [address] [place] [address] Referring Physician Orthopedic Surgery 08/17/19 Vaughn Melendez MD [address] [place] [address] Consulting Physician Gastroenterology 08/03/20 Frederick Burton, ALFRED [address] [address] Dentist Dental Director Of Informatics 04/12/21 Doris Brenner DO [address] [facility] [address] [address] Consulting Physician Otolaryngology 12/28/21 Obdulio Kumar MD [address] [facility] [address] [place] [address] Consulting Physician Gastroenterology 04/03/23 [place] [id number] [address] Consulting Physician Orthopedic Surgery 04/24/23 El Vo MD [address] [address] Referring Physician Orthopedic Surgery 10/15/23 [place] [address] [address] Nurse Practitioner Cardiology 03/31/24 documented as of this encounter
--- OUTSIDE RECORDS SUMMARY | 2025-02-07 00:43 | XMS_ITS | Encounter Summary ---
Author Organization [facility] Healthcare Address [address] [place] [address] Care Team Providers Care Industrial Health Engineer Name Role Phone Jh Tena MD Unavailable [phone] Carmen Hurst MD Unavailable Reji Clarke DO Unavailable [phone] Nathan Cross MD Primary Care Provider [phone] Vaughn Melendez MD Unavailable [phone] Frederick Burton DMD Unavailable [phone] Doris Brenner DO Unavailable [phone] Obdulio Kumar MD Unavailable Catracho Fernandez MD Unavailable [phone] El Vo MD Unavailable [phone] Pati Yang NP Unavailable [phone] Encounter Details Date Type Department Care Team (Late st Contact Info) Description 12/22/2024 Results Follow-Up 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 Not on file Not on file documented as of this encounter Plan of Treatment Not on file documented as of this encounter Visit Diagnoses Not on filedocumented in this encounter Care Teams Industrial Health Engineer Relationship Specialty Start Date End Date Nathan Cross MD [address] [place] [address] PCP - General Infectious Diseases 02/17/20 Jh Tena MD Consulting Physician Cardiology 01/08/18 Carmen Hurst MD Consulting Physician Neurology 01/08/18 Reji Clarke DO [address] [place] [address] Referring Physician Orthopedic Surgery 08/17/19 Vaughn Melendez MD [address] [place] [address] Consulting Physician Gastroenterology 08/03/20 Frederick Burton, ALFRED [address] [place] [address] Dentist Dental Ear Specialist 04/12/21 Doris Brenner DO [address] [facility] [address] [address] Consulting Physician Otolaryngology 12/28/21 Obdulio Kumar MD [address] [facility] [address] [place] [address] Consulting Physician Gastroenterology 04/03/23 [place] [id number] [address] Consulting Physician Orthopedic Surgery 04/24/23 El Vo MD [address] [address] Referring Physician Orthopedic Surgery 10/15/23 Pati Yang NP [address] [address] Nurse Practitioner Cardiology 03/31/24 documented as of this encounter
--- OUTSIDE RECORDS SUMMARY | 2025-02-07 00:43 | XMS_ITS | Encounter Summary ---
Author Organization [facility] Healthcare Address [address] [place] [address] Care Team Providers Care Dredge Worker Name Role Phone Jh Tena MD Unavailable [phone] Carmen Hurst MD Unavailable Reji Clarke DO Unavailable [phone] Nathan Cross MD Primary Care Provider Vaughn Melendez MD Unavailable [phone] Frederick Burton DMD Unavailable [phone] Doris Brenner DO Unavailable [phone] Obdulio Kumar MD Unavailable Catracho Fernandez MD Unavailable [phone] El Vo MD Unavailable [phone] Pati Yang NP Unavailable [phone] Encounter Details Date Type Department Care Team (Late st Contact Info) Description 01/20/2025 Results Follow-Up [facility] Medical Group [facility] [address] [place] [id number] Nathan Cross MD [address] [place] [address] Social History Tobacco Use Types Packs/Day Years [...] on file Legal 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 Gender Identity Female 05/03/2020 10:38 PM CDT Sexual Orientation Straight 05/03/2020 10 :38 PM CDT 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 Not on file Not on file documented as of this encounter Plan of Treatment Not on file documented as of this encounter Visit Diagnoses Not on filedocumented in this encounter Care Teams Dredge Worker Relationship Specialty Start Date End Date Nathan Cross MD [address] [place] [address] PCP - General Infectious Diseases 02/17/20 Jh Tena MD Consulting Physician Cardiology 01/08/18 Carmen Hurst MD Consulting Physician Neurology 01/08/18 Reji Clarke DO [address] [place] [address] Referring Physician Orthopedic Surgery 08/17/19 Vaughn Melendez MD [address] [place] [address] Consulting Physician Gastroenterology 08/03/20 Frederick Burton, ALFRED [address] [place] [address] Dentist Dental Office Workforce Planner 04/12/21 Doris Brenner DO [address] [facility] [address] [address] Consulting Physician Otolaryngology 12/28/21 Obdulio Kumar MD [address] [facility] [address] [place] [address] Consulting Physician Gastroenterology 04/03/23 [place] [id number] [address] Consulting Physician Orthopedic Surgery 04/24/23 El Vo MD [address] [address] Referring Physician Orthopedic Surgery 10/15/23 Pati Yang NP [address] [address] Nurse Practitioner Cardiology 03/31/24 documented as of this encounter
--- OUTSIDE RECORDS SUMMARY | 2025-02-07 00:44 | XMS_ITS | Clinical Summary ---
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 09/27/2022 SHAQ Banegas Active Last Documented On 2 10:05AM ; [facility] Joint Pain in the Right Knee on the Inner Side 06/14/2022 SHAQ Banegas Active Last Documented On 2 1:24PM ; [facility] Anemia 04/16/2015 MAY BRUNO RN JN Active Last Documented On 5 1:16PM ; [facility] Colonic Diverticulosis 04/16/2015 MAY BRUNO RN JN Active Last Documented On 5 1:15PM ; [facility] History of Prior Surgery: Stent 04/12/2014 LEAH BRUNO RN JN Active Last Documented On 4 8:44AM ; [facility] Note: Unchanged History of Hysterectomy 04/05/2013 MAY Landeros RN JN Active Last Documented On 3 1:24PM ; [facility] Note: Unchanged URGE INCONTINENCE 03/07/2011 CHRISSIE ROSADO M.D. Active Last Documented On 1 10:51AM ; [facility] Breast Fibroadenosis Chronic 01/25/2010 MAY BRUNO RN WHN P BC Active Last Documented On 04/13/2015 8:29AM ; [facility] Note: pt s/p removal and all mammogram p erformed by Dr. Clifford at [facility] CYST OF THYROID 01/25/2010 CHRISSIE RODRIGUEZ M.D. Active Last Documented On 01/25/2010 1:41PM ; [facility] Note: pt to see ent and skin care technician Esophageal Reflux 01/15/2010 DARSHANA TORRES MD Active Last Documented On 0 10:38PM ; [facility] Hyperlipidemia 02/09/2009 DARSHANA TORRES MD Active Last Documented On 0 10:38PM ; [facility] Essential Hypertension Benign 02/09/2009 DARSHANA TORRES MD Active Last Documented On 0 10:38PM ; [facility] Plan of Treatment Pending Tests Order Diagnosis Results Due Ordering P rovider Pain Management CPT - PM Referrals Pain Management Pain in left leg 01/22/23 SHAQ Banegas Last Documented On 3 4:08PM ; [facility] Assessments Includes: Assessments from this encounter No [...] By Ira ALVA ; [facility] hydrALAZINE HCl 100 MG Oral Tablet 06/14/2022 Provid er: Diagnosis: Last Documented On 06/14/2022 1:15PM By MARCY BHAT LPN ; [facility] Gabapentin 100 MG Oral Capsule 06/14/2022 Provider: Diagnosis: Last Documented On 06/14/2022 1:15PM By MARCY BHAT LPN ; [facility] Valsartan-hydroCHLOROthiazide 320-25 MG Oral Tablet Provider: Diagnosis: Last Documented On 06/14/2022 1:12PM By MARCY BHAT LPN ; [facility] NexIUM 40 MG Oral Capsule Delayed Release 06/14/2022 Provider: Diagnosis: Last Documented On 06/14/2022 1:12PM By MARCY BHAT LPN ; [facility] Furosemide 40 MG Oral Tablet 06/14/2022 Provider: Diagnosis: Last Documented On 06/14/2022 1:11PM By MARCY BHAT LPN ; [facility] Amiodarone HCl 200 MG Oral Tablet 06/14/2022 Provide r: Diagnosis: Last Documented On 06/14/2022 1:10PM By MARCY BHAT LPN ; [facility] Xarelto 20 MG Oral Tablet 06/14/2022 Provider: Diagnosis: Last Documented On 06/14/2022 1:10PM By MARCY BHAT LPN ; [facility] Calcium 600 MG Tablet 05/02/2016 Provider: Diagnosis: Last Documented On 05/02/2016 2:58PM By CLAUDIA REYES MA ; [facility] Multi Vitamin Daily Tablet 05/02/2016 Provider: Diagnosis: Last Documented On 05/02/2016 2:58PM By CLAUDIA REYES MA ; [facility] Irbesartan 300 MG Tablet 05/02/2016 Provider: Diagnosis: Last Documented On 05/02/2016 2:58PM By CLAUDIA REYES MA ; [facility] Metoprolol Succinate ER 25 MG Tablet Extended Re lease 24 Hour 05/02/2016 Provider: Diagnosis: Last Documented On 05/02/2016 2:57PM By CLAUDIA REYES MA ; [facility] Levothyroxine Sodium 175 MCG Tablet 05/02/2016 Provi blu: Diagnosis: Last Documented On 05/02/2016 2:57PM By CLAUDIA REYES MA ; [facility] oxyBUTYnin Chloride 5 MG OR TABS 04/12/2014 Provider : Diagnosis: Last Documented On 04/12/2014 8:27AM By AIRAM SARAVIA ; [facility] Livalo 1 MG OR TABS 04/12/2014 Provider: Diagnosis: Last Documented On 04/12/2014 8:27AM By AIRAM SARAVIA ; [facility] Medications Administered Includes: Administered Medications [...] ctive Last Documented On 3 3:29PM ; [facility] Fish Oil Allergy THROAT, MOUTH AND EARS ITCH 04/12/2014 Active Last Documented On 3 3:29PM ; [facility] CeleBREX Allergy 02/09/2009 Active Last Documented On 3 3:29PM ; [facility] Encounters Encounter Provider Location Date Check-In Time Check-Out Time Diagnosis * PHONE CALL SHAQ Banegas [facility] 3 12:42PM 11:59PM Insurance Includes: Active Insurance Policies Plan Name Member ID Group # Subscriber Relationship Effect grant Dates 1 - [facility]/MEDICARE ADV/[employer] [id number] MONAE lieberman Clinical Notes Includes: Clinical Notes from this encounter No Clinical Notes Recorded
--- OUTSIDE RECORDS SUMMARY | 2025-02-07 00:44 | XMS_ITS | Encounter Summary ---
Author Organization [facility] Address [address] [place] [address] Phone Care Team Providers Care Multimedia Journalist Name Role Phone Jh Tena MD Unavailable [phone] Carmen Hurst MD Unavailable Luis Alberto Beauchamp MD Unavailable [phone] Reji Clarke DO Unavailable [phone] Nathan Cross MD Primary Care Provider [phone] Vaughn Melendez MD Unavailable [phone] Frederick Burton DMD Unavailable [phone] Doris Brenner DO Unavailable [phone] Obdulio Kumar MD Unavailable Catracho Fernandez MD Unavailable [phone] El Vo MD Unavailable [phone] Pati Yang NP Unavailable [phone] Encounter Details Date Type Department Care Team (Late st Contact Info) Description 06/18/2022 Orders Only [facility] [address] [place] [address] Scanning, Provider Social History Tobacco [...] on file 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 Gender Identity Female 05/03/2020 10:38 PM CDT [...] documented as of this encounter Care Teams Multimedia Journalist Relationship Specialty Start Date End Date Nathan Cross MD [address] [place] [address] PCP - General Infectious Diseases 02/17/20 Jh Tena MD Consulting Physician Cardiology 01/08/18 Carmen Hurst MD Consulting Physician Neurology 01/08/18 Luis Alberto Beauchamp MD [address] [facility] [address] [place] [address] Consulting Physician Endocrinology 06/18/19 02/12/24 Reji Clarke DO [address] [place] [address] Referring Physician Orthopedic Surgery 08/17/19 Vaughn Melendez MD [address] [facility] [address] [place] [address] Consulting Physician Gastroenterology 08/03/20 Frederick Burton DMD [address] [place] [address] Dentist Dental Chief Of Staff Doctor 04/12/21 Doris Brenner DO [address] [place] [address] [address] [address] Consulting Physician Otolaryngology 12/28/21 Obdulio Kumar MD [address] [place] [address] [address] [address] Consulting Physician Gastroenterology 04/03/23 [place] [address] [address] Consulting Physician Orthopedic Surgery 04/24/23 El Vo MD [address] [address] Referring Physician Orthopedic Surgery 10/15/23 Pati Yang NP [address] [address] Nurse Practitioner Cardiology 03/31/24 documented as of this encounter
--- OUTSIDE RECORDS SUMMARY | 2025-02-07 00:44 | XMS_ITS | Clinical Summary ---
Author Organization [facility] Address [address] [place] [address] Phone Care Team Providers Care Supervisor Waterproofing Name Role Phone MILENA QUIROGA MD Unavailable [phone] MABEL MULLINS Primary Care Provider [phone] Reason for Visit and Chief Complaint visit for: Right Knee Pain - The Chief Complaint is: PRESENTS FOR RT KNEE, GELSYN-3 INJ #3 OF 3 Problems Includes: Problems addressed during this encounter and other active Problems Current Visit Onset Date Resolved Date Provider Conditio n Status Osteoarthritis Localized Primary Knee Right 09/27/2022 SHAQ Banegas Active Last Documented On 2 10:05AM ; [facility] History of Prior Surgery: Stent 04/12/2014 LEAH BRUNO RN JN Active Last Documented On 4 8:44AM ; [facility] Note: Unchanged History of Hysterectomy 04/05/2013 MAY Landeros RN JN Active Last Documented On 3 1:24PM ; [facility] Note: Unchanged Past Visits Onset Date Resolved Date Provider Condition Status Joint Pain in the Right Knee on the Inner Side 06/14/2022 SHAQ Banegas Active Last Documented On 2 1:24PM ; [facility] Anemia 04/16/2015 MAY BRUNO RN JN [place] Active Last Documented On 5 1:16PM ; [facility] Colonic Diverticulosis 04/16/2015 MAY BRUNO RN JN [place] Active Last Documented On 5 1:15PM ; [facility] URGE INCONTINENCE 03/07/2011 CHRISSIE ROSADO M.D. Active Last Documented On 1 10:51AM ; [facility] Breast Fibroadenosis Chronic 01/25/2010 MAY BRUNO RN WHN P BC Active Last Documented On 04/13/2015 8:29AM ; [facility] Note: pt s/p removal and all mammogram p erformed by Dr. Clifford at [facility] CYST OF THYROID 01/25/2010 CHRISSIE RODRIGUEZ M.D. Active Last Documented On 01/25/2010 1:41PM ; [facility] Note: pt to see ent and blender snuff Esophageal Reflux 01/15/2010 DARSHANA TORRES MD Active Last Documented On 0 10:38PM ; [facility] Hyperlipidemia 02/09/2009 DARSHANA TORRES MD Active Last Documented On 0 10:38PM ; [facility] Essential Hypertension Benign 02/09/2009 DARSHANA TORRES MD Active Last Documented On 0 10:38PM ; [facility] Plan of Treatment She was given her [...] - Last Documented On 11/21/2022 3:45PM ; [facility] Assessments Includes: Assessments from this encounter Findings - [M17.11 - Unilateral primary osteoarthritis, right knee] Localized primary osteoarthritis of right knee - Last Documented On 11/21/2022 3:45PM ; [facility] Medical Equipment - Implanted Devices Includes: Current [...] On 06/14/2022 1:28PM By Ira ALVA ; [facility] hydrALAZINE HCl 100 MG Oral Tablet 06/14/2022 Provid er: Diagnosis: Last Documented On 06/14/2022 1:15PM By MARCY BHAT LPN ; [facility] Gabapentin 100 MG Oral Capsule 06/14/2022 Provider: Diagnosis: Last Documented On 06/14/2022 1:15PM By MARCY BHAT LPN ; [facility] Valsartan-hydroCHLOROthiazide 320-25 MG Oral Tablet Provider: Diagnosis: Last Documented On 06/14/2022 1:12PM By MARCY BHAT LPN ; [facility] NexIUM 40 MG Oral Capsule Delayed Release 06/14/2022 Provider: Diagnosis: Last Documented On 06/14/2022 1:12PM By MARCY BHAT LPN ; [facility] Furosemide 40 MG Oral Tablet 06/14/2022 Provider: Diagnosis: Last Documented On 06/14/2022 1:11PM By MARCY BHAT LPN ; [facility] Amiodarone HCl 200 MG Oral Tablet 06/14/2022 Provide r: Diagnosis: Last Documented On 06/14/2022 1:10PM By MARCY BHAT LPN ; [facility] Xarelto 20 MG Oral Tablet 06/14/2022 Provider: Diagnosis: Last Documented On 06/14/2022 1:10PM By MARCY BHAT LPN ; [facility] Calcium 600 MG Tablet 05/02/2016 Provider: Diagnosis: Last Documented On 05/02/2016 2:58PM By CLAUDIA REYES MA ; [facility] Multi Vitamin Daily Tablet 05/02/2016 Provider: Diagnosis: Last Documented On 05/02/2016 2:58PM By CLAUDIA REYES MA ; [facility] Irbesartan 300 MG Tablet 05/02/2016 Provider: Diagnosis: Last Documented On 05/02/2016 2:58PM By CLAUDIA REYES MA ; [facility] Metoprolol Succinate ER 25 MG Tablet Extended Re lease 24 Hour 05/02/2016 Provider: Diagnosis: Last Documented On 05/02/2016 2:57PM By CLAUDIA REYES MA ; [facility] Levothyroxine Sodium 175 MCG Tablet 05/02/2016 Provi blu: Diagnosis: Last Documented On 05/02/2016 2:57PM By CLAUDIA REYES MA ; [facility] oxyBUTYnin Chloride 5 MG OR TABS 04/12/2014 Provider : Diagnosis: Last Documented On 04/12/2014 8:27AM By AIRAM SARAVIA ; [facility] Livalo 1 MG OR TABS 04/12/2014 Provider: Diagnosis: Last Documented On 04/12/2014 8:27AM By AIRAM SARAVAI ; [facility] Past Medications on file Terconazole 0.8% VA CREA 04/05/2013 - 04/14/2013 Provider: MAY BRUNO RN JN Diagnosis: CANDIDAL VULVOVA GINITIS 1 PAULA IN VAGINA EVERY NIGHT X 3 APPLY BID TO EXTERNAL AREA Last Documented On 3 1:26PM By MAY GARNICA- ; [facility] Diflucan 150 MG OR TABS 03/13/2012 - 03/14/2012 Provider: CHRISSIE ROSADO M.D. Diagnosis: CANDIDAL VULVOVA GINITIS 1 po x 1 day Last Documented On 2 12:45PM By DR. CHRISSIE ROSADO ; [facility] oxyBUTYnin Chloride 5 MG OR TABS 07/01/2011 - 12/28/2011 Provider: DARSHANA KAPOOR MD Diagnosis: Last Documented On 1 12:11AM By DARSHANA TORRES MD ; [facility] Aciphex 20 MG OR TBEC 05/27/2011 - 08/25/2011 Provider : MERY KAUFFMAN PA-C Diagnosis: Last Documented On 1 4:37PM By MERY KAUFFMAN PA-C ; [facility] Lisinopril-hydroCHLOROthiazi de 20-12.5 MG TABS 04/29/2011 - 08/27/2011 Provider: STEVEN FLORES PA-C Diagnosis: 1 qd #30 Last Documented On 04/29/2011 12:46PM By STEVEN FLORES PA-C ; [facility] Carbinoxamine Maleate 4 MG OR TABS 03/29/2011 - 05/28/2011 Provider: DARSHANA TORRES MD Diagnosis: ALLERGIC RHINITI S NOS Last Documented On 03/29/2011 1:37PM By Rosy ALVA ; [facility] Oxytrol 3.9 MG/24HR TD PTTW 03/07/2011 - 05/06/2011 Provider: CHRISSIE JORDAN M.D. Diagnosis: URGE INCONTINENC E change patch q 72 hrs Last Documented On 1 10:56AM By DR. CHRISSIE ROSADO ; [facility] NexIUM 40 MG OR CPDR 03/01/2011 - 03/31/2011 Provider: STEVEN FLORES PA-C Diagnosis: Last Documented On 03/01/2011 9:52AM By STEVEN FLORES PA-C ; [facility] Flonase 50 MCG/ACT NA SUSP 11/15/2010 - 12/15/2010 Provider: JULES Banegas Diagnosis: ACUTE SINUSITIS NOS 2 sprays each nostril qd Last Documented On 11/15/2010 3:45PM By JULES MCCARTHY PA-C ; [facility] Zithromax Z-Kash 250 MG OR TABS 11/15/2010 - 11/20/2010 Provider: JULES Banegas Diagnosis: ACUTE SINUSITIS NOS Last Documented On 11/15/2010 3:12PM By JULES MCCARTHY PA-C ; [facility] Cefprozil 500 MG OR TABS 10/25/2010 - 11/04/2010 Provi blu: STEVEN FLORES PA-C Diagnosis: Last Documented On 10/25/2010 10:11AM By STEVEN FLORES PA-C ; [facility] Augmentin 875-125 MG OR TABS 09/11/2010 - 09/21/2010 Pawan batesder: STEVEN FLORES PA-C Diagnosis: Last Documented On 09/11/2010 11:00AM By STEVEN FLORES PA-C ; [facility] Valtrex 1 GM OR TABS 08/20/2010 - 08/21/2010 Provider: STEVEN FLORES PA-C Diagnosis: HERPES SIMPLEX N OS 2 tabs po now, repeat in 12 hours Last Documented On 08/20/2010 5:51PM By STEVEN FLORES PA-C ; [facility] Levaquin 750 MG OR TABS 08/20/2010 - 08/25/2010 Provid er: STEVEN FLORES PA-C Diagnosis: BRONCHITIS NOS Last Documented On 08/20/2010 5:51PM By STEVEN FLORES PA-C ; [facility] Tussionex Pennkinetic ER 10-8 MG/5ML OR LQCR 08/20/2010 - 09/19/2010 Provider: STEVEN Banegas Diagnosis: BRONCHITIS NOS one tsp po BID PRN Last Documented On 08/20/2010 5:51PM By STEVEN FLORES PA-C ; [facility] Simvastatin 20 MG OR TABS 06/27/2010 - 12/24/2010 Prov ider: STEVEN FLORES PA-C Diagnosis: Last Documented On 06/27/2010 12:04PM By STEVEN FLORES PA-C ; [facility] Flonase 50 MCG/ACT NA SUSP 07/21/2009 - 08/20/2009 Pro vider: TANNER MYERS PA-C Diagnosis: 2 sprays q nare qd Last Documented On 07/21/2009 1:27PM By TANNER MYERS ; [facility] [place] 180 MG OR TABS 07/21/2009 - 08/20/2009 Provide r: TANNER MYERS PA-C Diagnosis: Last Documented On 07/21/2009 1:27PM By TANNER MYERS ; [facility] Protonix 40 MG OR TBEC 07/07/2009 - 07/17/2009 Provider: DARSHANA KAPOOR MD Diagnosis: REFLUX ESOPHAGIT IS Last Documented On 9 9:04AM By DARSHANA TORRES MD ; [facility] Medrol (Kash) 4 MG OR TABS 07/07/2009 - 07/13/2009 Prov ider: DARSHANA TORRES MD Diagnosis: COUGH as directed Last Documented On 9 9:04AM By DARSHANA TORRES MD ; [facility] Lisinopril-hydroCHLOROthiazi de 20-12.5 MG TABS 07/07/2009 - 08/06/2009 Provider: DARSHANA HEATON M.D. Diagnosis: Last Documented On 07/07/2009 8:34AM By Rosy ALVA ; [facility] Xyzal 5 MG OR TABS 06/19/2009 - 2009 Provider: STEVEN FLORES PA-C Diagnosis: DRUG ALLERGY NEC Last Documented On 06/19/2009 9:49PM By STEVEN FLORES PA-C ; [facility] [place] 180 MG OR TABS 06/09/2009 - 12/06/2009 Provide r: STEVEN FLORES PA-C Diagnosis: Last Documented On 06/09/2009 12:56PM By STEVEN FLORES PA-C ; [facility] oxyBUTYnin Chloride 5 MG OR TABS 06/03/2009 - 07/03/20 Provider: Diagnosis: Last Documented On 07/05/2009 11:25AM By Jonny Lamb ; [facility] Advair Diskus 250-50 MCG/DOSE IN [facility] 05/13/2009 - 06/10/2009 Provider: TANNER GRIFFITH PA-C Diagnosis: COUGH Last Documented On 05/13/2009 9:31AM By TANNER MYERS ; [facility] Ventolin HFA 108 (90 Base) MCG/ACT IN AERS 05/13/2009 - 06/12/2009 Provider: TANNER GRIFFITH PA-C Diagnosis: COUGH 2 puffs q 4-6 hours prn. Last Documented On 05/13/2009 9:31AM By TANNER MYERS ; [facility] Singulair 10 MG OR TABS 05/05/2009 - 05/19/2009 Provider: STEVEN Banegas Diagnosis: PNEUMONIA, ORGAN ISM NOS Last Documented On 05/05/2009 4:06PM By STEVEN FLORES PA-C ; [facility] Advair Diskus 100-50 MCG/DOSE IN [facility] 04/20/2009 - 05/18/2009 Provider: STEVEN Banegas Diagnosis: BRONCHITIS NOS one puff twice a day Last Documented On 04/20/2009 9:43AM By STEVEN FLORES PA-C ; [facility] predniSONE 20 MG [...] 04/20/2009 9:43AM By STEVEN FLORES PA-C ; [facility] Proventil HFA 108 (90 Base) MCG/ACT IN [facility]ERS 04/10/2009 - 05/10/2009 Provider: STEVEN [place] Diagnosis: ACUTE BRONCHITIS 2 puffs every 4-6 hours PRN Last Documented On 04/10/2009 11:51AM By STEVEN FLORES PA-C ; [facility] Tessalon Perles 100 MG OR CAPS 04/10/2009 - 05/10/2009 Provider: STEVEN Banegas Diagnosis: ACUTE BRONCHITIS 1-2 tabs tid PRN Last Documented On 04/10/2009 11:51AM By STEVEN FLORES PA-C ; [facility] Zithromax Z-Kash 250 MG OR TABS 04/10/2009 - 04/15/2009 Provider: STEVEN Banegas Diagnosis: ACUTE BRONCHITIS as directed Last Documented On 04/10/2009 11:51AM By STEVEN FLORES PA-C ; [facility] Simvastatin 20 MG OR TABS 12/30/2008 - 06/28/2009 Prov ider: Diagnosis: Last Documented On 02/09/2009 2:46PM By RACQUEL JIMENEZ ; [facility] Medications Administered Includes: Administered Medications from this encounter No Administered Medications Recorded Vital Signs Includes: Vital Signs from this encounter Vital Name 11/21/2022 03:29P Blood Pressure Sitting (mmHg) 112/60 Height (in) 66.5 Last Documented: On 11/21/2022 3:33PM ; [facility] Results Includes: Results discussed during [...] 06/14/2022 Last Documented On 3 3:29PM ; [facility] Personal history plans to retire 10/05 0 05/27/2017 Last Documented On 3 3:29PM ; [facility] Alcohol use: 2 drinks or less per day RA RELY 05/27/2017 Last Documented On 3 3:29PM ; [facility] Education history 05/27/2017 Last Documented On 3 3:29PM ; [facility] In monogamous relationship 05/27/2017 Last Documented On 3 3:29PM ; [facility] Marital history 05/27/2017 Last Documented On 3 3:29PM ; [facility] Non-smoker 05/27/2017 Last Documented On 3 3:29PM ; [facility] Sexually active 05/27/2017 Last Documented On 3 3:29PM ; [facility] Smoking status : Never smoker 05/27/2017 Last Documented On 3 3:29PM ; [facility] Social history unchanged 05/27/2017 Last Documented On 3 3:29PM ; [facility] Currently 05/02/2016 Last Documented On 3 3:29PM ; [facility] Educational level 05/02/2016 Last Documented On 3 3:29PM ; [facility] Not using alcohol 05/02/2016 Last Documented On 3 3:29PM ; [facility] Procedures and Surgical History Includes: Procedures from this encounter Procedures Code Diagnosis Performing Provider Service L ocation Service Date injection in a knee joint -Right Last Documented On 3 3:42PM ; [facility] use of tobacco assessment performed 1000F Last Documented On 3 3:33PM ; [facility] review of medications documented 1160F Last Documented On 3 3:44PM ; [facility] encouragement to exercise Last Documented On 3 3:44PM ; [facility] Informed consent obtained Ri s and [...] obtained Last Documented On 3 3:40PM ; [facility] Sodium Hyaluronate, 5 mg for intra-articular injection The right knee was prepped in aseptic technique. I injected Gelsyn viscosupplementation into the right knee using a 22 gauge 1-/2 needle. Patient tolerated the procedure well and post procedure showed no signs of complications. Patient will be seen for the continuation of the series [id number] Last Documented On 3 3:40PM ; [facility] Surgical History Last Updated Surgical / procedural histor y SINUS SURGERY 11/02 ~THYROIDECTOMY 08/2015 benign nodules 05/02/2016 Last Documented On 3 3:29PM ; [facility] Surgical history unchanged 04/13/2015 Last Documented On 3 3:29PM ; [facility] History of total abdominal hysterectomy 04/12/2014 Last Documented On 3 3:29PM ; [facility] History of hysterectomy 06/15/19962012 Last Documented On 3 3:29PM ; [facility] Bilateral salpingo-oophorectomy 03/11/20 Last Documented On 3 3:29PM ; [facility] Breast Biopsy 03/07/2011 Last Documented On 3 3:29PM ; [facility] Stent 01/24/2010 Last Documented On 3 3:29PM ; [facility] History of cholecystectomy 01/24/2010 Last Documented On 3 3:29PM ; [facility] Medical History Includes: Medical History addressed during this encounter Description Last Updated Last mammogram date: 08/201605/27/2017 Last Documented On 3 3:29PM ; [facility] PRIMARY CARE PROVIDER : Dr. Cheryl Shukla ~ DR. GONZALEZ GI ~DR. VALERIO BREAST SPECIALIST 04/13/2015 Last Documented On 3 3:29PM ; [facility] A colonoscopy was performed 09/26/2009 Varinder HERNANDEZ AUG 2014 04/13/2015 Last Documented On 3 3:29PM ; [facility] History of a DEXA of the lateral lumbar spine was performed 06/11/2013 04/13/2015 Last Documented On 3 3:29PM ; [facility] History of Pap smear done 03/11/201203/21 Last Documented On 3 3:29PM ; [facility] History of screening mammogram was perfo rmed 05/06/2014 04/13/2015 Last Documented On 3 3:29PM ; [facility] GERD ~hyperilpidemia ~LISA/BS O DUB ENDOMETRIOSIS ~2004- Bladder ~ ~urge incont. ~status post anterior repair 04/12/2014 Last Documented On 3 3:29PM ; [facility] No recent change in medical history 03/21 Last Documented On 3 3:29PM ; [facility] Result: normal 04/12/2014 Last Documented On 3 3:29PM ; [facility] Result: normal 04/12/2014 Last Documented On 3 3:29PM ; [facility] Status post hysterectomy DUB 04/05/2013 Last Documented On 3 3:29PM ; [facility] History of menopause 04/05/2013 Last Documented On 3 3:29PM ; [facility] LMP: 06/15/1996 04/05/2013 Last Documented On 3 3:29PM ; [facility] Last pap smear date 03/11/2012 03/11/2012 Last Documented On 3 3:29PM ; [facility] History of benign essential hypertension 03/07/2011 Last Documented On 3 3:29PM ; [facility] Taking OTC medications including Mucinex 08/20/2010 Last Documented On 3 3:29PM ; [facility] History of chronic reflux esophagitis Last Documented On 3 3:29PM ; [facility] History of thyroid disorder THYROID NODU LES 01/25/2010 Last Documented On 3 3:29PM ; [facility] Para 2 01/25/2010 Last Documented On 3 3:29PM ; [facility] Vaginal delivery 01/25/2010 Last Documented On 3 3:29PM ; [facility] 2 living children 01/15/2010 Last Documented On 3 3:29PM ; [facility] A mammogram was performed 07/30/0701/15 Last Documented On 3 3:29PM ; [facility] 2 01/15/2010 Last Documented On 3 3:29PM ; [facility] Hypertension 01/15/2010 Last Documented On 3 3:29PM ; [facility] History of essential hypertension 2008 Last Documented On 3 3:29PM ; [facility] Taking medication - prescrip tion Patient currently taking Levaquin. Finished Zithromax. Tussionex helping. Proventil inhaler seems to help for a little while 04/20/2009 Last Documented On 3 3:29PM ; [facility] Taking OTC pain medication /fever. Using Tylenol 04/10/2009 Last Documented On 3 3:29PM ; [facility] History of hypertension 02/09/2009 Last Documented On 3 3:29PM ; [facility] Surgery GALBLADDER 1978 ~BLADDER 02/20 Last Documented On 3 3:29PM ; [facility] Family History Includes: Family History addressed during this encounter Description Last Updated Maternal history of diabetes mellitus Mo ther 05/02/2016 Last Documented On 3 3:29PM ; [facility] Family history of diabetes mellitus Moth er 04/13/2015 Last Documented On 3 3:29PM ; [facility] Family history of hypercholesterolemia F ather 04/13/2015 Last Documented On 3 3:29PM ; [facility] Family history of hypertension Patient, Father 04/13/2015 Last Documented On 3 3:29PM ; [facility] Family history unchanged 04/13/2015 Last Documented On 3 3:29PM ; [facility] Spouse name: DARLING 03/07/2011 Last Documented On 3 3:29PM ; [facility] First child named 01/25/2010 Last Documented On 3 3:29PM ; [facility] No family history of malignant female br east neoplasm 01/25/2010 Last Documented On 3 3:29PM ; [facility] No family history of malignant neoplasm of the large intestine 01/25/2010 Last Documented On 3 3:29PM ; [facility] No family history of malignant neoplasm of the ovary 01/25/2010 Last Documented On 3 3:29PM ; [facility] No family history of uterine cancer 05/2010 Last Documented On 3 3:29PM ; [facility] Second child named 01/25/2010 Last Documented On 3 3:29PM ; [facility] Family history of Diabetes (m) 0 Last Documented On 3 3:29PM ; [facility] Family medical history of high blood pre ssure &hyperlipidemia(F) 01/15/2010 Last Documented On 3 3:29PM ; [facility] Brother BLOCKED ARTERIES 2008 Last Documented On 3 3:29PM ; [facility] Brother HAS MS 02/09/2009 Last Documented On 3 3:29PM ; [facility] Father 02/09/2009 Last Documented On 3 3:29PM ; [facility] Heart disease 02/09/2009 Last Documented On 3 3:29PM ; [facility] Mother 02/09/2009 Last Documented On 3 3:29PM ; [facility] Review of Systems Includes: Review [...] ctive Last Documented On 3 3:29PM ; [facility] Fish Oil Allergy THROAT, MOUTH AND EARS ITCH 04/12/2014 Active Last Documented On 3 3:29PM ; [facility] CeleBREX Allergy 02/09/2009 Active Last Documented On 3 3:29PM ; [facility] Encounters Encounter Provider Location Date Check-In Time Check-Out Time Diagnosis FOLLOW UP SHAQ Banegas [facility] 11/21/19 23 3:24PM 3:38PM Osteoarthritis Localized Primary Knee Right Insurance Includes: Active Insurance Policies Plan Name Member ID Group # Subscriber Relationship Effect grant Dates 1 - [facility]/MEDICARE ADV/[employer] [id number] BRIGIDA lieberman Clinical Notes Includes: Clinical Notes from this encounter * Progress note Date Encounter Last Documented by 11/21/2022 FOLLOW UP Last documented on 11/21/2022; 3:45 PM, SHAQ Banegas; [facility] Active Problems & Conditions - 285.9 - Anemia - 610.2 - Breast Fibroadenosis Chronic - pt s/p removal and all mammogram performed by Dr. Clifford at [facility] - 562.10 - Colonic Diverticulosis - 246.2 - CYST OF THYROID - pt to see ent and blender snuff - 530.81 - Esophageal Reflux - I10 [...] for a little while, medication for pain [id number] /fever. Using Tylenol, and [id number] medications including Mucinex. Tests: A mammogram was [...]
--- OUTSIDE RECORDS SUMMARY | 2025-02-07 00:44 | XMS_ITS | Clinical Summary ---
Author Organization [facility] Address [address] [place] [address] Phone Care Team Providers Care Interventional Pain Physician Name Role Phone MILENA QUIROGA MD Unavailable [phone] MABEL MULLINS Primary Care Provider [phone] Reason for Visit and Chief Complaint * PHONE CALL Problems Includes: Problems addressed during this encounter and other active Problems Current Visit Onset Date Resolved Date Provider Conditio n Status History of Prior Surgery: Stent 04/12/2014 MAY BRUNO RN JN Active Last Documented On 04/12/2014 8:44AM ; [facility] Note: Unchanged History of Hysterectomy 04/05/2013 MAY BRUNO RN JN Active Last Documented On 04/05/2013 1:24PM ; [facility] Note: Unchanged Past Visits Onset Date Resolved Date Provider Condition Status Osteoarthritis Localized Primary Knee Right 09/27/2022 SHAQ Banegas Active Last Documented On 2 10:05AM ; [facility] Joint Pain in the Right Knee on the Inner Side 06/14/2022 SHAQ Banegas Active Last Documented On 2 1:24PM ; [facility] Anemia 04/16/2015 MAY BRUNO RN JN Active Last Documented On 5 1:16PM ; [facility] Colonic Diverticulosis 04/16/2015 MAY BRUNO RN JN Active Last Documented On 5 1:15PM ; [facility] URGE INCONTINENCE 03/07/2011 CHRISSIE ROSADO M.D. Active Last Documented On 1 10:51AM ; [facility] Breast Fibroadenosis Chronic 01/25/2010 MAY BRUNO RN WHN P BC Active Last Documented On 04/13/2015 8:29AM ; [facility] Note: pt s/p removal and all mammogram p erformed by Dr. Clifford at [facility] CYST OF THYROID 01/25/2010 CHRISSIE RODRIGUEZ M.D. Active Last Documented On 01/25/2010 1:41PM ; [facility] Note: pt to see ent and family preservation officer Esophageal Reflux 01/15/2010 DARSHANA TORRES MD Active Last Documented On 0 10:38PM ; [facility] Hyperlipidemia 02/09/2009 DARSHANA TORRES MD Active Last Documented On 0 10:38PM ; [facility] Essential Hypertension Benign 02/09/2009 DARSHANA TORRES MD Active Last Documented On 0 10:38PM ; [facility] Plan of Treatment No Plan of Treatment [...] On 06/14/2022 1:28PM By Ira ALVA ; [facility] hydrALAZINE HCl 100 MG Oral Tablet 06/14/2022 Provid er: Diagnosis: Last Documented On 06/14/2022 1:15PM By MARCY BHAT LPN ; [facility] Gabapentin 100 MG Oral Capsule 06/14/2022 Provider: Diagnosis: Last Documented On 06/14/2022 1:15PM By MARCY BHAT LPN ; [facility] Valsartan-hydroCHLOROthiazide 320-25 MG Oral Tablet Provider: Diagnosis: Last Documented On 06/14/2022 1:12PM By MARCY BHAT LPN ; [facility] NexIUM 40 MG Oral Capsule Delayed Release 06/14/2022 Provider: Diagnosis: Last Documented On 06/14/2022 1:12PM By MARCY BHAT LPN ; [facility] Furosemide 40 MG Oral Tablet 06/14/2022 Provider: Diagnosis: Last Documented On 06/14/2022 1:11PM By MARCY BHAT LPN ; [facility] Amiodarone HCl 200 MG Oral Tablet 06/14/2022 Provide r: Diagnosis: Last Documented On 06/14/2022 1:10PM By MARCY BHAT LPN ; [facility] Xarelto 20 MG Oral Tablet 06/14/2022 Provider: Diagnosis: Last Documented On 06/14/2022 1:10PM By MARCY BHAT LPN ; [facility] Calcium 600 MG Tablet 05/02/2016 Provider: Diagnosis: Last Documented On 05/02/2016 2:58PM By CLAUDIA REYES MA ; [facility] Multi Vitamin Daily Tablet 05/02/2016 Provider: Diagnosis: Last Documented On 05/02/2016 2:58PM By CLAUDIA REYES MA ; [facility] Irbesartan 300 MG Tablet 05/02/2016 Provider: Diagnosis: Last Documented On 05/02/2016 2:58PM By CLAUDIA REYES MA ; [facility] Metoprolol Succinate ER 25 MG Tablet Extended Re lease 24 Hour 05/02/2016 Provider: Diagnosis: Last Documented On 05/02/2016 2:57PM By CLAUDIA REYES MA ; [facility] Levothyroxine Sodium 175 MCG Tablet 05/02/2016 Provi blu: Diagnosis: Last Documented On 05/02/2016 2:57PM By CLAUDIA REYES MA ; [facility] oxyBUTYnin Chloride 5 MG OR TABS 04/12/2014 Provider : Diagnosis: Last Documented On 04/12/2014 8:27AM By AIRAM SARAVIA ; [facility] Livalo 1 MG OR TABS 04/12/2014 Provider: Diagnosis: Last Documented On 04/12/2014 8:27AM By AIRAM SARAVIA ; [facility] Past Medications on file Terconazole 0.8% VA CREA 04/05/2013 - 04/14/2013 Provider: MAY GARNICA BC Diagnosis: CANDIDAL VULVOVA GINITIS 1 PAULA IN VAGINA EVERY NIGHT X 3 APPLY BID TO EXTERNAL AREA Last Documented On 3 1:26PM By MAY GARNICA-BC ; [facility] Diflucan 150 MG OR TABS 03/13/2012 - 03/14/2012 Provider: CHRISSIE ROSADO M.D. Diagnosis: CANDIDAL VULVOVA GINITIS 1 po x 1 day Last Documented On 2 12:45PM By DR. CHRISSIE ROSADO ; [facility] oxyBUTYnin Chloride 5 MG OR TABS 07/01/2011 - 12/28/2011 Provider: DARSHANA KAPOOR MD Diagnosis: Last Documented On 1 12:11AM By DARSHANA TORRES MD ; [facility] Aciphex 20 MG OR TBEC 05/27/2011 - 08/25/2011 Provider : MERY KAUFFMAN PA-C Diagnosis: Last Documented On 1 4:37PM By MERY KAUFFMAN PA-C ; [facility] Lisinopril-hydroCHLOROthiazi de 20-12.5 MG TABS 04/29/2011 - 08/27/2011 Provider: STEVEN FLORES PA-C Diagnosis: 1 qd #30 Last Documented On 04/29/2011 12:46PM By STEVEN FLORES PA-C ; [facility] Carbinoxamine Maleate 4 MG OR TABS 03/29/2011 - 05/28/2011 Provider: DARSHANA TORRES MD Diagnosis: ALLERGIC RHINITI S NOS Last Documented On 03/29/2011 1:37PM By Rosy ALVA ; [facility] Oxytrol 3.9 MG/24HR TD PTTW 03/07/2011 - 05/06/2011 Provider: CHRISSIE JORDAN M.D. Diagnosis: URGE INCONTINENC E change patch q 72 hrs Last Documented On 1 10:56AM By DR. CHRISSIE ROSADO ; [facility] NexIUM 40 MG OR CPDR 03/01/2011 - 03/31/2011 Provider: STEVEN FLORES PA-C Diagnosis: Last Documented On 03/01/2011 9:52AM By STEVEN FLORES PA-C ; [facility] Flonase 50 MCG/ACT NA SUSP 11/15/2010 - 12/15/2010 Provider: JULES Banegas Diagnosis: ACUTE SINUSITIS NOS 2 sprays each nostril qd Last Documented On 11/15/2010 3:45PM By JULES MCCARTHY PA-C ; [facility] Zithromax Z-Kash 250 MG OR TABS 11/15/2010 - 11/20/2010 Provider: JULES Banegas Diagnosis: ACUTE SINUSITIS NOS Last Documented On 11/15/2010 3:12PM By JULES MCCARTHY PA-C ; [facility] Cefprozil 500 MG OR TABS 10/25/2010 - 11/04/2010 Provi blu: STEVEN FLORES PA-C Diagnosis: Last Documented On 10/25/2010 10:11AM By STEVEN FLORES PA-C ; [facility] Augmentin 875-125 MG OR TABS 09/11/2010 - 09/21/2010 P rovider: STEVEN FLORES PA-C Diagnosis: Last Documented On 09/11/2010 11:00AM By STEVEN FLORES PA-C ; [facility] Valtrex 1 GM OR TABS 08/20/2010 - 08/21/2010 Provider: STEVEN FLORES PA-C Diagnosis: HERPES SIMPLEX N OS 2 tabs po now, repeat in 12 hours Last Documented On 08/20/2010 5:51PM By STEVEN FLORES PA-C ; [facility] Levaquin 750 MG OR TABS 08/20/2010 - 08/25/2010 Provid er: STEVEN FLORES PA-C Diagnosis: BRONCHITIS NOS Last Documented On 08/20/2010 5:51PM By STEVEN FLORES PA-C ; [facility] Tussionex Pennkinetic ER 10-8 MG/5ML OR LQCR 08/20/2010 - 09/19/2010 Provider: STEVEN Banegas Diagnosis: BRONCHITIS NOS one tsp po BID PRN Last Documented On 08/20/2010 5:51PM By STEVEN FLORES PA-C ; [facility] Simvastatin 20 MG OR TABS 06/27/2010 - 12/24/2010 Prov ider: STEVEN FLORES PA-C Diagnosis: Last Documented On 06/27/2010 12:04PM By STEVEN FLORES PA-C ; [facility] Flonase 50 MCG/ACT NA SUSP 07/21/2009 - 08/20/2009 Pro vider: TANNER MYERS PA-C Diagnosis: 2 sprays q nare qd Last Documented On 07/21/2009 1:27PM By TANNER MYERS ; [facility] [place] 180 MG OR TABS 07/21/2009 - 08/20/2009 Provide r: TANNER MYERS PA-C Diagnosis: Last Documented On 07/21/2009 1:27PM By TANNER MYERS ; [facility] Protonix 40 MG OR TBEC 07/07/2009 - 07/17/2009 Provider: DARSHANA KAPOOR MD Diagnosis: REFLUX ESOPHAGIT IS Last Documented On 9 9:04AM By DARSHANA TORRES MD ; [facility] Medrol (Kash) 4 MG OR TABS 07/07/2009 - 07/13/2009 Prov ider: DARSHANA TORRES MD Diagnosis: COUGH as directed Last Documented On 9 9:04AM By DARSHANA TORRES MD ; [facility] Lisinopril-hydroCHLOROthiazi de 20-12.5 MG TABS 07/07/2009 - 08/06/2009 Provider: DARSHANA HEATON M.D. Diagnosis: Last Documented On 07/07/2009 8:34AM By Rosy ALVA ; [facility] Xyzal 5 MG OR TABS 06/19/2009 - 2009 Provider: SETVEN FLORES PA-C Diagnosis: DRUG ALLERGY NEC Last Documented On 06/19/2009 9:49PM By STEVEN FLORES PA-C ; [facility] [place] 180 MG OR TABS 06/09/2009 - 12/06/2009 Provide r: STEVEN FLORES PA-C Diagnosis: Last Documented On 06/09/2009 12:56PM By STEVEN FLORES PA-C ; [facility] oxyBUTYnin Chloride 5 MG OR TABS 06/03/2009 - 07/03/20 Provider: Diagnosis: Last Documented On 07/05/2009 11:25AM By Jonny Lamb ; [facility] Advair Diskus 250-50 MCG/DOSE IN MISC 05/13/2009 - 06/10/2009 Provider: TANNER GRIFFITH PA-C Diagnosis: COUGH Last Documented On 05/13/2009 9:31AM By TANNER MYERS ; [facility] Ventolin HFA 108 (90 Base) MCG/ACT IN AERS 05/13/2009 - 06/12/2009 Provider: TANNER GRIFFITH PA-C Diagnosis: COUGH 2 puffs q 4-6 hours prn. Last Documented On 05/13/2009 9:31AM By TANNER MYERS ; [facility] Singulair 10 MG OR TABS 05/05/2009 - 05/19/2009 Provider: STEVEN Banegas Diagnosis: PNEUMONIA, ORGAN ISM NOS Last Documented On 05/05/2009 4:06PM By STEVEN FLORES PA-C ; [facility] Advair Diskus 100-50 MCG/DOSE IN MISC 04/20/2009 - 05/18/2009 Provider: STEVEN Banegas Diagnosis: BRONCHITIS NOS one puff twice a day Last Documented On 04/20/2009 9:43AM By STVEEN FLORES PA-C ; [facility] predniSONE 20 MG OR TABS 04/20/2009 - 05/02/2009 Provi blu: STEVEN FLORES PA-C Diagnosis: BRONCHITIS NOS 3 x 3 d, 2 x 3d, 1x3d, 1/2 x 3d then d/c Last Documented On 04/20/2009 9:43AM By STEVEN FLORES PA-C ; [facility] Tussionex Pennkinetic ER 10-8 MG/5ML OR LQCR 04/20/2009 - 05/20/2009 Provider: STEVEN Banegas Diagnosis: BRONCHITIS NOS one tsp twice a day PRN Last Documented On 04/20/2009 9:43AM By STEVEN FLORES PA-C ; [facility] Proventil HFA 108 (90 Base) MCG/ACT IN AERS 04/10/2009 - 05/10/2009 Provider: STEVEN [place] Diagnosis: ACUTE BRONCHITIS 2 puffs every 4-6 hours PRN Last Documented On 04/10/2009 11:51AM By STEVEN FLORES PA-C ; [facility] Tessalon Perles 100 MG OR CAPS 04/10/2009 - 05/10/2009 Provider: STEVEN Banegas Diagnosis: ACUTE BRONCHITIS 1-2 tabs tid PRN Last Documented On 04/10/2009 11:51AM By STEVEN FLORES PA-C ; [facility] Zithromax Z-Kash 250 MG OR TABS 04/10/2009 - 04/15/2009 Provider: STEVEN Banegas Diagnosis: ACUTE BRONCHITIS as directed Last Documented On 04/10/2009 11:51AM By STEVEN FLORES PA-C ; [facility] Simvastatin 20 MG OR TABS 12/30/2008 - 06/28/2009 Prov ider: Diagnosis: Last Documented On 02/09/2009 2:46PM By RACQUEL JIMENEZ ; [facility] Medications Administered Includes: Administered Medications from this encounter No Administered Medications Recorded Results Includes: Results discussed during this encounter No Results Recorded For Specified Dates History of Present Illness Includes: History of Present Illness from this encounter No History of Present Illness Recorded Social History Description Last Updated Tobacco non-user 06/14/2022 Last Documented On 3 11:05AM ; [facility] Personal history plans to retire 10/05 0 05/27/2017 Last Documented On 3 11:05AM ; [facility] Alcohol use: 2 drinks or less per day RA RELY 05/27/2017 Last Documented On 3 11:05AM ; [facility] Education history 05/27/2017 Last Documented On 3 11:05AM ; [facility] In monogamous relationship 05/27/2017 Last Documented On 3 11:05AM ; [facility] Marital history 05/27/2017 Last Documented On 3 11:05AM ; [facility] Non-smoker 05/27/2017 Last Documented On 3 11:05AM ; [facility] Sexually active 05/27/2017 Last Documented On 3 11:05AM ; [facility] Smoking status : Never smoker 05/27/2017 Last Documented On 3 11:05AM ; [facility] Social history unchanged 05/27/2017 Last Documented On 3 11:05AM ; [facility] Currently 05/02/2016 Last Documented On 3 11:05AM ; [facility] Educational level 05/02/2016 Last Documented On 3 11:05AM ; [facility] Not using alcohol 05/02/2016 Last Documented On 3 11:05AM ; [facility] Procedures and Surgical History Surgical History Last Updated Surgical / procedural histor y SINUS SURGERY 11/02 ~THYROIDECTOMY 08/2015 benign nodules 05/02/2016 Last Documented On 3 11:05AM ; [facility] Surgical history unchanged 04/13/2015 Last Documented On 3 11:05AM ; [facility] History of total abdominal hysterectomy 04/12/2014 Last Documented On 3 11:05AM ; [facility] History of hysterectomy 06/15/19962012 Last Documented On 3 11:05AM ; [facility] Bilateral salpingo-oophorectomy 03/11/20 Last Documented On 3 11:05AM ; [facility] Breast Biopsy 03/07/2011 Last Documented On 3 11:05AM ; [facility] Stent 01/24/2010 Last Documented On 3 11:05AM ; [facility] History of cholecystectomy 01/24/2010 Last Documented On 3 11:05AM ; [facility] Medical History Includes: Medical History addressed during this encounter Description Last Updated Last mammogram date: 08/201605/27/2017 Last Documented On 3 11:05AM ; [facility] PRIMARY CARE PROVIDER : Dr. Cheryl Shukla ~ DR. LISA JOY ~DR. VALERIO BREAST SPECIALIST 04/13/2015 Last Documented On 3 11:05AM ; [facility] A colonoscopy was performed 09/26/2009 Varinder BOWLES 201304/13/2015 Last Documented On 3 11:05AM ; [facility] History of a DEXA of the lateral lumbar spine was performed 06/11/2013 04/13/2015 Last Documented On 3 11:05AM ; [facility] History of Pap smear done 03/11/201203/21 Last Documented On 3 11:05AM ; [facility] History of screening mammogram was perfo rmed 05/06/2014 04/13/2015 Last Documented On 3 11:05AM ; [facility] GERD ~hyperilpidemia ~LISA/BS O DUB ENDOMETRIOSIS ~2004- Bladder ~ ~urge incont. ~status post anterior repair 04/12/2014 Last Documented On 3 11:05AM ; [facility] No recent change in medical history 03/21 Last Documented On 3 11:05AM ; [facility] Result: normal 04/12/2014 Last Documented On 3 11:05AM ; [facility] Result: normal 04/12/2014 Last Documented On 3 11:05AM ; [facility] Status post hysterectomy DUB 04/05/2013 Last Documented On 3 11:05AM ; [facility] History of menopause 04/05/2013 Last Documented On 3 11:05AM ; [facility] LMP: 06/15/1996 04/05/2013 Last Documented On 3 11:05AM ; [facility] Last pap smear date 03/11/2012 03/11/2012 Last Documented On 3 11:05AM ; [facility] History of benign essential hypertension 03/07/2011 Last Documented On 3 11:05AM ; [facility] Taking OTC medications including Mucinex 08/20/2010 Last Documented On 3 11:05AM ; [facility] History of chronic reflux esophagitis Last Documented On 3 11:05AM ; [facility] History of thyroid disorder THYROID NODU LES 01/25/2010 Last Documented On 3 11:05AM ; [facility] Para 2 01/25/2010 Last Documented On 3 11:05AM ; [facility] Vaginal delivery 01/25/2010 Last Documented On 3 11:05AM ; [facility] 2 living children 01/15/2010 Last Documented On 3 11:05AM ; [facility] A mammogram was performed 07/30/0701/15 Last Documented On 3 11:05AM ; [facility] 2 01/15/2010 Last Documented On 3 11:05AM ; [facility] Hypertension 01/15/2010 Last Documented On 3 11:05AM ; [facility] History of essential hypertension 2008 Last Documented On 3 11:05AM ; [facility] Taking medication - prescrip tion Patient currently taking Levaquin. Finished Zithromax. Tussionex helping. Proventil inhaler seems to help for a little while 04/20/2009 Last Documented On 3 11:05AM ; [facility] Taking OTC pain medication /fever. Using Tylenol 04/10/2009 Last Documented On 3 11:05AM ; [facility] History of hypertension 02/09/2009 Last Documented On 3 11:05AM ; [facility] Surgery GALBLADDER 1978 ~BLADDER 02/20 Last Documented On 3 11:05AM ; [facility] Family History Includes: Family History addressed during this encounter Description Last Updated Maternal history of diabetes mellitus Mo ther 05/02/2016 Last Documented On 3 11:05AM ; [facility] Family history of diabetes mellitus Moth er 04/13/2015 Last Documented On 3 11:05AM ; [facility] Family history of hypercholesterolemia F ather 04/13/2015 Last Documented On 3 11:05AM ; [facility] Family history of hypertension Patient, Father 04/13/2015 Last Documented On 3 11:05AM ; [facility] Family history unchanged 04/13/2015 Last Documented On 3 11:05AM ; [facility] Spouse name: DARLING 03/07/2011 Last Documented On 3 11:05AM ; [facility] First child named 01/25/2010 Last Documented On 3 11:05AM ; [facility] No family history of malignant female br east neoplasm 01/25/2010 Last Documented On 3 11:05AM ; [facility] No family history of malignant neoplasm of the large intestine 01/25/2010 Last Documented On 3 11:05AM ; [facility] No family history of malignant neoplasm of the ovary 01/25/2010 Last Documented On 3 11:05AM ; [facility] No family history of uterine cancer 05/2010 Last Documented On 3 11:05AM ; [facility] Second child named 01/25/2010 Last Documented On 3 11:05AM ; [facility] Family history of Diabetes (m) 0 Last Documented On 3 11:05AM ; [facility] Family medical history of high blood pre ssure &hyperlipidemia(F) 01/15/2010 Last Documented On 3 11:05AM ; [facility] Brother BLOCKED ARTERIES 2008 Last Documented On 3 11:05AM ; [facility] Brother HAS MS 02/09/2009 Last Documented On 3 11:05AM ; [facility] Father 02/09/2009 Last Documented On 3 11:05AM ; [facility] Heart disease 02/09/2009 Last Documented On 3 11:05AM ; [facility] Mother 02/09/2009 Last Documented On 3 11:05AM ; [facility] Review of Systems Includes: Review of Systems [...] ctive Last Documented On 3 3:29PM ; [facility] Fish Oil Allergy THROAT, MOUTH AND EARS ITCH 04/12/2014 Active Last Documented On 3 3:29PM ; [facility] CeleBREX Allergy 02/09/2009 Active Last Documented On 3 3:29PM ; [facility] Encounters Encounter Provider Location Date Check-In Time Check-Out Time Diagnosis * PHONE CALL SHAQ Banegas [facility] 3 11:05AM 11:59PM Insurance Includes: Active Insurance Policies Plan Name Member ID Group # Subscriber Relationship Effect grant Dates 1 - [facility]/MEDICARE ADV/[employer] [id number] MONAE lieberman Clinical Notes Includes: Clinical Notes from this encounter * Progress note Date Encounter Last Documented by 12/23/2022 * PHONE CALL Last documented on 12/23/2022; 12:01 PM, SHAQ Banegas; [facility] Active Problems & Conditions - 285.9 - Anemia - 610.2 - Breast Fibroadenosis Chronic - pt s/p removal and all mammogram performed by Dr. Clifford at [facility] - 562.10 - Colonic Diverticulosis - 246.2 - CYST OF THYROID - pt to see ent and family preservation officer - 530.81 - Esophageal Reflux - I10 [...] her back? pt phone # for return call:[phone] Date/Initials:12/23/22 AD. Current Medication - Amiodarone HCl [...] for a little while, medication for pain ofkn-sde-yqdsyzr /fever. Using Tylenol, and upgm-xru-ybcpqhl medications including Mucinex. Tests: A mammogram was [...]
--- OUTSIDE RECORDS SUMMARY | 2025-02-07 00:44 | XMS_ITS | Referral Summary ---
Author Organization [facility] Address [address] [place] [address] Care Team Providers Care Release Of Information Clerk Name Role Phone Jh Tena MD Unavailable [phone] Carmen Hurst MD Unavailable Reji Clarke DO Unavailable [phone] Mabel Mullins MD Primary Care Provider Vaughn Melendez MD Unavailable [phone] Frederick Burton DMD Unavailable [phone] Doris Brenner DO Unavailable [phone] Obdulio Kumar MD Unavailable Catracho Fernandez MD Unavailable [phone] El Vo MD Unavailable [phone] Pati Yang NP Unavailable [phone] Encounters Date Type Department Care Team Description 02/04/2025 Results Follow-Up [facility] [address] [place] [address] Mabel Mullins MD 02/02/2025 11:20 AM CDT Lab [facility] [address] [place] [address] Hyponatremia 01/31/2025 Telephone [facility] [address] [place] [address] Mabel Mullins MD 01/26/2025 11:40 AM CDT Office Visit [facility] [address] [facility] [address] [address] Fernando Jarrett MD Lesion of right ear (Primary Dx); Impacted cerumen, left ear 01/20/2025 Results Follow-Up [facility] [address] [place] [address] Mabel Mullins MD 01/20/2025 11:10 AM CDT Lab [facility] [address] [place] [address] Hyponatremia 01/20/2025 10:00 AM CDT Ancillary Procedure [facility] [address] [place] [address] Breast cancer screening by mammogram 01/20/2025 10:30 AM CDT Office Visit [facility] [address] [place] [address] Salma Segovia NP Lesion of right ear (Primary Dx); Hyponatremia; Essential hypertension 01/08/2025 Results Follow-Up [facility] [address] [place] [address] Mabel Mullins MD 01/06/2025 Orders Only [facility] Health Information Management [address] [place] [address] Mabel Mullins MD 12/29/2024 Telephone [facility] [address] [place] [address] Mabel Mullins MD 12/29/2024 11:30 AM CDT Office Visit [facility] [address] [place] [address] Mabel Mullins MD Medicare annual wellness visit, [...] cancer screening by mammogram 12/24/2024 Orders Only [facility] at [address] [place] [address] Pati Yang NP Hypertensive heart disease with chronic diastolic congestive heart failure (HCC) (Primary Dx); Atrial fibrillation status post cardioversion (HCC) 12/23/2024 Telephone [facility] at [address] [place] [address] Ezequiel Orta MA 12/22/2024 Results Follow-Up [facility] [place] [facility] [address] [facility] [address] [place] [address] Mabel Mullins MD 12/21/2024 12:00 PM COMPUTERIZED MILL MILL RECORDER Lab [facility] [address] [facility] [address] [place] [address] Essential hypertension from Last 3 Months Allergies Active Allergy [...] (See comments) Medium Reaction: throat itching, swelling, Ewofxyo-Kqm-Nle Reductase Inhibitors Muscle pain Medium 06/18/2019 Sulfa [...] Take 1 tablet/chew tab by mouth daily 024 Active amiodarone (PACERONE) 200 mg tabletIndications [...] or higher. 60 tablet [address] (NexIUM) 40 mg capsuleIndication s:Gastroesophagea l reflux disease with esophagitis without hemorrhage Take 1 capsule by mouth twice daily 180 capsule 1 025 Active levothyroxine (SYNTHROID) 200 mcg tabletIndications :Postoperative hypothyroidism Take 1 tablet by mouth once daily 90 tablet 1 025 Active NIFEdipine (NIFEdipine XL) 30 mg 24 hr tabletIndications :Essential hypertension Take 1 tablet (30 mg total) by mouth daily 30 tablet 5 [address] (NexIUM) 40 mg capsuleIndication s:Gastroesophagea l reflux disease with esophagitis without hemorrhage Take 1 capsule by mouth twice daily 180 capsule 1 024 2024 Discontinued levothyroxine (SYNTHROID) 200 mcg tabletIndications :Postoperative hypothyroidism Take 1 tablet by mouth once daily 90 tablet 024 2024 Discontinued Active Problems Problem Noted Date Diagnosed Date Lesion of right ear 01/20/2025 Excoriation of right ear canal 12/29/2024 Assessment [...] orthopedics. Assessment & Plan (12/03/2023 12:11 PM COMPUTERIZED MILL MILL RECORDER): After they removed fluid from her right knee, there was significant pain relief and it has not recurred. She takes Tylenol as needed. She uses diclofenac gel. She also has tramadol which she rarely uses because it makes her feel woozy. Assessment & Plan (11/08/2023 11:53 AM COMPUTERIZED MILL MILL RECORDER): She developed pain and swelling in her [...] therapy. Assessment & Plan (10/29/2023 3:02 PM COMPUTERIZED MILL MILL RECORDER): We ordered a PTH. Closed fracture of proximal end of left humerus with routine healing 04/24/2023 Overview (05/12/2023): Seeing Dr. Fernandez Assessment & Plan (09/12/2023 2:55 PM COMPUTERIZED MILL MILL RECORDER): She requested a refill of tramadol to [...] weeks ago. She saw Dr. Fernandez at [facility]. Her arm is in a sling [...] Kumar. Assessment & Plan (09/04/2023 11:41 AM COMPUTERIZED MILL MILL RECORDER): She is on Nexium twice a day. [...] indicated. Left hip pain 01/02/2023 Overview (03/01/2023): TERA Driscoll, imaging negative except for moderate facet hypertrophy [...] 08/19/2022 Assessment & Plan (10/29/2023 3:06 PM COMPUTERIZED MILL MILL RECORDER): Potassium was slightly low in the ER recently. We requested follow-up testing to see if replacement needs to be increased. Assessment & Plan (08/26/2022 1:02 PM COMPUTERIZED MILL MILL RECORDER): Potassium is a little low, probably due to the effects of combined furosemide and hydrochlorothiazide. We will put her on a little potassium supplement. She already takes a magnesium supplement. Acute pain of right knee 06/07/2022 Assessment & Plan (09/10/2022 4:05 PM COMPUTERIZED MILL MILL RECORDER): She developed acute pain in her right [...] then went to an orthopedic surgeon in [place] who ordered an MRI. We never got [...] (08/25/2022): Added automatically from request for surgery [id number], cardiac cath on 01/31/2022, Dr. Tena: 1. [...] diet Assessment & Plan (11/23/2021 3:14 PM COMPUTERIZED MILL MILL RECORDER): With the onset of vertigo last Friday, [...] weeks. Assessment & Plan (10/29/2020 3:41 PM COMPUTERIZED MILL MILL RECORDER): About three or four days ago she [...] level. Assessment & Plan (12/28/2020 9:35 AM COMPUTERIZED MILL MILL RECORDER): Nocturnal leg cramps are improved with gabapentin. Continue same. Assessment & Plan (09/28/2020 11:41 AM COMPUTERIZED MILL MILL RECORDER): She has had a slight benefit from gabapentin in her nocturnal leg cramps. She can only take 100 mg, otherwise she is excessively sedated. Continue same. Assessment & Plan (08/24/2020 1:07 PM COMPUTERIZED MILL MILL RECORDER): She has been having cramps in her [...] (05/11/2023): Added automatically from request for surgery [id number], EGD 04/04/2020: Mild esophageal candidiasis, diffuse gastropathy with some retained food, small HH, Dr. Melendez, [facility]. Follow up endoscopy 04/03/2023, mild reactive gastropathy, [...] EGD. Assessment & Plan (12/28/2020 9:38 AM COMPUTERIZED MILL MILL RECORDER): She is on Nexium for heartburn symptoms. It does not control her abdominal bloating which could have other causes. Assessment & Plan (10/29/2020 3:42 PM COMPUTERIZED MILL MILL RECORDER): This could be causing or contributing to [...] scheduled for a right knee arthroscopy at [facility] to remove blood and control [...] anesthesiologist. Assessment & Plan (12/03/2023 12:10 PM COMPUTERIZED MILL MILL RECORDER): Her latest sodium is stable or even a little improved. We will continue to monitor periodically. Lab Results Component Value Date GLUCOSE 116 10/29/2023 CALCIUM 9.3 10/29/2023 SODIUM 131 (L) 10/29/2023 POTASSIUM 3.4 10/29/2023 CO2 28 10/29/2023 CHLORIDE 88 (L) 10/29/2023 BUNSER 12 10/29/2023 CREATININE 0.79 10/29/2023 Assessment & Plan (11/08/2023 11:52 AM COMPUTERIZED MILL MILL RECORDER): Labs done in the ER recently showed [...] 10/15/2023 Assessment & Plan (09/04/2023 11:43 AM COMPUTERIZED MILL MILL RECORDER): Sodium is stable or even slightly improved [...] 02/26/2023 Assessment & Plan (08/26/2022 1:03 PM COMPUTERIZED MILL MILL RECORDER): Sodium is little lower than her last [...] hands. Assessment & Plan (12/02/2021 1:59 PM COMPUTERIZED MILL MILL RECORDER): She has had problems with low-sodium in the past, attributed to a combination of hydrochlorothiazide and furosemide to control swelling in her legs and blood pressure. Systolic blood pressure is mildly elevated today. She got IV fluids in the ER at [place]. We are checking follow-up electrolytes. Consider additional [...] needed. Assessment & Plan (10/12/2020 4:30 PM COMPUTERIZED MILL MILL RECORDER): Sodium is stable but still low. It [...] today. Assessment & Plan (08/24/2020 1:06 PM COMPUTERIZED MILL MILL RECORDER): She has a mild to moderate hyponatremia, [...] obstruction. Assessment & Plan (12/28/2020 9:40 AM COMPUTERIZED MILL MILL RECORDER): For the past year or so, she [...] month. Assessment & Plan (08/26/2022 1:01 PM COMPUTERIZED MILL MILL RECORDER): She sees Dr. Tena annually. She is [...] doing. Assessment & Plan (12/28/2020 9:37 AM COMPUTERIZED MILL MILL RECORDER): There is no pitting edema in her legs. Lungs are clear. She seems to have better exercise tolerance, walking on the treadmill. Continue to monitor. Assessment & Plan (09/28/2020 11:43 AM COMPUTERIZED MILL MILL RECORDER): Diastolic heart failure is probably contributing to fluid retention and hyponatremia. Currently she seems reasonably well controlled. Oxygen saturation is normal and lungs are clear. There is some swelling in her legs but it is not severe. Continue current therapy. Assessment & Plan (08/24/2020 1:05 PM COMPUTERIZED MILL MILL RECORDER): She has no swelling in her legs. [...] therapy. Assessment & Plan (09/04/2023 11:44 AM COMPUTERIZED MILL MILL RECORDER): She takes levothyroxine. We are monitoring periodically with labs. Lab Results Component Value Date TSH 1.23 08/28/2023 Assessment & Plan (03/03/2023 1:05 PM CDT): We will check a TSH before her next visit in about six months. Lab Results Component Value Date TSH 0.74 08/19/2022 Assessment & Plan (08/26/2022 1:04 PM COMPUTERIZED MILL MILL RECORDER): She is on a stable dose of [...] 09/21/2020 Assessment & Plan (12/28/2020 9:34 AM COMPUTERIZED MILL MILL RECORDER): TSH is normal on current therapy. I do not think this is contributing to her hypothyroidism. Lab Results Component Value Date TSH 1.06 09/21/2020 Assessment & Plan (08/24/2020 1:09 PM COMPUTERIZED MILL MILL RECORDER): She is on a fairly high replacement [...] a feeling of palpitations. She wore another classroom monitor and turned it in this morning. [...] She was scheduled for an arthroscopy at [facility] which was delayed because of [...] level. Assessment & Plan (09/04/2023 11:43 AM COMPUTERIZED MILL MILL RECORDER): She is on a vitamin-D supplement and [...] hyponatremia. Assessment & Plan (09/10/2022 4:07 PM COMPUTERIZED MILL MILL RECORDER): We are referring her back to sleep specialist for reassessment of treatment. Assessment & Plan (08/24/2020 1:08 PM COMPUTERIZED MILL MILL RECORDER): She continues on CPAP. She had some [...] Assessment & Plan (01/23/2018 12:05 PM CDT): Waggoner sleepiness scale score 14 on 01/23/2018 Referred [...] colon 04/16/2015 Overview (08/25/2022): Chart entry from [facility], details lacking. Anemia 04/16/2015 Overview (08/25/2022): Mild, intermittent normocytic anemia first noted at [facility]. Assessment & Plan (03/14/2023 10:38 PM CDT): [...] morning. Assessment & Plan (09/04/2023 11:40 AM COMPUTERIZED MILL MILL RECORDER): Symptoms are controlled on Astelin and Flonase [...] months. Assessment & Plan (09/04/2023 11:43 AM COMPUTERIZED MILL MILL RECORDER): She takes Zetia. She is intolerant of [...] statins. Assessment & Plan (08/26/2022 1:03 PM COMPUTERIZED MILL MILL RECORDER): She did not tolerate statins, but is [...] months. Assessment & Plan (11/04/2017 12:01 PM COMPUTERIZED MILL MILL RECORDER): Lipid abnormalities are unchanged. Nutritional counseling was provided. and Pharmacotherapy as ordered. Lipids will be reassessed in 6 months. Chronic fibroadenosis of breast 01/25/2010 Overview (08/25/2022): Note from [facility]: s/p removal (of fibroadenoma) and all mammogram [...] efforts. Assessment & Plan (11/08/2023 11:52 AM COMPUTERIZED MILL MILL RECORDER): She is concerned about involuntary weight loss. She usually weighs over 200 lb. Lately she does not feel like eating but denies nausea or abdominal pain. Bowel habits are normal. We will see her back in a month for a follow-up. Assessment & Plan (09/04/2023 11:44 AM COMPUTERIZED MILL MILL RECORDER): We encouraged attention to her diet, and hopefully a little bit of weight loss. Assessment & Plan (03/03/2023 1:04 PM CDT): We encouraged attention to her diet, and hopefully some weight loss. Assessment & Plan (08/26/2022 1:04 PM COMPUTERIZED MILL MILL RECORDER): We encouraged attention to her diet, and [...] cardiology. Assessment & Plan (09/04/2023 11:42 AM COMPUTERIZED MILL MILL RECORDER): Blood pressure is mildly elevated. Dr. Tena [...] in office today at 154/84 (62). Admits steak sauce maker recently stopped Metoprolol due to low HR. Taking Diovan, hydralyzine, and lasix as ordered. No acute findings on exam. Monitor at home daily and record bring to next office visit. Low salt diet, stay hydrated. Assessment & Plan (08/26/2022 1:01 PM COMPUTERIZED MILL MILL RECORDER): Blood pressure is in a reasonable range [...] 02/13/2022 Assessment & Plan (11/23/2021 3:16 PM COMPUTERIZED MILL MILL RECORDER): Systolic blood pressure is mildly elevated. We [...] days. Assessment & Plan (12/28/2020 9:38 AM COMPUTERIZED MILL MILL RECORDER): Blood pressure is in a reasonable range today. She gets similar or lower blood pressures at home with occasional systolics of 150 in the afternoon or evening. Continue current therapy. Assessment & Plan (09/28/2020 11:42 AM COMPUTERIZED MILL MILL RECORDER): Blood pressure is in a good range on current therapy. Continue same. Assessment & Plan (09/02/2020 2:45 PM COMPUTERIZED MILL MILL RECORDER): She is on quite a few medicines [...] cardiac concerns and blood pressure with her steak sauce maker to decrease the possibility of confusion with [...] a blood pressure log to present to steak sauce maker and or primary care physician for further [...] have referred her to the ER at [facility] for monoclonal antibody infusion. She [...] needed. Assessment & Plan (12/28/2021 2:34 PM COMPUTERIZED MILL MILL RECORDER): Right Benign Positional Vertigo treated with Enrrique maneuver today Hearing and Balance testing [facility] Dr. Cortez Smith [phone] [address] [place] [address] Cetirizine 5 mg (1/2 Tablet) daily Consider Left sided ear tube placement versus imaging based on hearing and balance testing Vertigo 11/16/2021 08/26/2022 Overview (08/26/2022): Seen in [place] ER. Rx with meclizine. No recurrence as of July 2022. Saw surveillance supervisor for this and ringing. Assessment & Plan (12/02/2021 1:57 PM COMPUTERIZED MILL MILL RECORDER): She woke up early Friday morning with pretty bad vertigo. There was associated tinnitus. She has not noticed any hearing loss. The only preceding symptom was some mild positional vertigo at the hairdresser the previous Friday. She went to the [facility] ER and had labs and a head [...] (08/22/2020): Added automatically from request for surgery [id number], see EGD, improved with treatment of Steff. [...] Nasal saline spray (Simply saline, [employer] Remedies, [place], [place]) 2 second sprays or 2 squeezes into [...] Follow up in one week. Speak to Pr Manager on Friday regarding Xarelto Assessment & Plan (05/30/2020 4:18 PM CDT): Start Nasal saline spray (Simply saline, [employer] Remedies, [place], [place]) 2 second sprays or 2 squeezes into [...] Cardiac status will be reassessed by her steak sauce maker. metoprolol xl 50 mg qd Assessment & Plan (07/16/2018 4:52 PM CDT): No chest pain today. Stable. 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 Patient has a very minimum ST depression in the lateral leads which is the same in comparison to prior EKGs. Her symptoms are minimum now. She is ruled out for of acute [place] with serial troponins and EKGs. Cardiology consult [...] 06/03/2018 Assessment & Plan (12/02/2017 9:42 AM COMPUTERIZED MILL MILL RECORDER): Depo-Medrol 80mg IM x 1 now. Nebulized TX DuoNeb given. Rxs given, increase fluids, rest. Pseudophakia of both eyes 04/11/2017 Non-toxic multinodular goiter 03/05/2014 07/03/2018 Overview (01/24/2017): NONTOX MULTINODUL GOITER Chronic sinusitis 11/10/2012 11/04/2017 Overview (01/23/2017): Chronic sinusitis Thyroid nodule 02/17/2012 11/04/2017 Overview (01/23/2017): Thyroid nodule Postmenopausal 04/19/2010 02/17/2020 Non morbid obesity 04/19/2010 Assessment & Plan (12/28/2020 9:35 AM COMPUTERIZED MILL MILL RECORDER): Her weight is unchanged. She is trying to lose weight. I encouraged her efforts. I encouraged smaller meal sizes to deal with abdominal bloating. Assessment & Plan (10/12/2020 4:29 PM COMPUTERIZED MILL MILL RECORDER): She saw a dietitian. She did great [...] months. 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 Not on file Not on file Last Filed Vital Signs Vital Sign Reading Time Taken Comments Blood Pressure 150/66 01/20/2025 10:28 AM CDT Pulse 60 01/20/2025 10:28 AM CDT Temperature 36.6 C (97.8 F) 01/20/2025 10:28 AM CDT Respiratory Rate 18 01/20/2025 10:28 AM CDT Oxygen Saturation 98% 01/20/2025 10:28 AM CDT Inhaled Oxygen Concentration - - Weight 83.9 kg (185 lb) 01/26/2025 11:23 AM CDT Height 165.1 cm (5' 5 ) 01/26/2025 11:23 AM CDT Body Mass Index 30.79 01/26/2025 11:23 AM CDT Plan of Treatment Not on file Medical Devices Implanted Type Area Tank Car Mechanic Device Identifier Shelf Expiration Date Model / Serial / Lot Angio-Seal Evolution 6fr Vascular Closure [id number] - [id number] Implanted:Qty: 1 on 01/31/2022 by Jh Tena MD at [facility] Other - see comments [employer] 10/19/2022 [id number] / / [id number] Procedures Procedure Name Priority Date/Time Associated Diagnosis Comments EGFR Routine 02/02/2025 11:20 AM CDT Hyponatremia BASIC METABOLIC PANEL Routine 02/02/2025 11:20 AM CDT Hyponatremia EGFR Routine 01/20/2025 11:12 AM CDT Hyponatremia BASIC METABOLIC PANEL Routine 01/20/2025 11:12 AM CDT Hyponatremia SCREENING MAMMOGRAM BILATERAL W VIRGILIO Schedule Routine, Read Routine (OP Routine) 01/20/2025 10:17 AM CDT Breast cancer screening by mammogram SCAN - RADIOLOGY/IMAGING 01/06/2025 8:52 AM CDT EGFR Routine 12/21/2024 11:58 AM COMPUTERIZED MILL MILL RECORDER Essential hypertension THYROID FUNCTION CASCADE Routine 12/21/2024 11:58 AM COMPUTERIZED MILL MILL RECORDER Essential hypertension BASIC METABOLIC PANEL Routine 12/21/2024 11:58 AM COMPUTERIZED MILL MILL RECORDER Essential hypertension COLONOSCOPY 04/03/2023 8:38 AM CDT DEXA AXIAL SKELETON BONE DENSITY 1 OR MORE SITES Schedule Routine, Read Routine (OP Routine) 03/05/2023 12:55 PM CDT Menopause Low bone density HM HEPATITIS C SCREENING Routine 02/13/2017 from Last 3 Months or Most Recently Relevant to Health Maintenance Results * eGFR (02/02/2025 11:20 AM CDT) eGFR 83 >=60 mL/min/1. 73 m2 Comment: Interpretive Data [...] was last reviewed 2021. Testing performed by: [address] [id number] Blood 02/02/2025 11:2 0 AM CDT 02/02/2025 8:18 PM CDT Mabel Mullins MD LAB BLOOD ORDERABLES Final Re sult [address] Department [place] [address] * (ABNORMAL) Basic metabolic panel (02/02/2025 11:20 AM CDT) Sodium 131(L) 135 - 145 mmol/L Comment:Testing performed by : [address] [address] Potassium, pl 4.0 3.3 - 4.9 mmol/L [facility] Comment:Testing performed by : [address] [address] Chloride 95(L) 97 - 110 mmol/L [facility] Comment:Testing performed by : [address] [address] CO2 24 22 - 32 mmol/L [facility] Comment:Testing performed by : [address] [address] Anion gap 12 2 - 15 mmol/L [facility] Comment:Testing performed by : [address] [address] BUN 13 6 - 25 mg/dL [facility] Comment:Testing performed by : [address] [address] Creatinine 0.76 0.60 - 1.10 mg/dL [facility] Comment:Testing performed by : [address] [address] Glucose 103 70 - 199 mg/dL [facility] Comment: Interpretive Data Fasting glucose >/= [...] was last revised 2022. Testing performed by: [facility], [address] [place] [address]., [address] Calcium 8.9 8.5 - 10.3 mg/dL [facility] Comment:Testing performed by : [address] [address] Blood 02/02/2025 11:2 0 AM CDT 02/02/2025 6:45 PM CDT us Mabel Mullins MD LAB BLOOD ORDERABLES Final Re sult [facility] [address] Department [place] [address] * eGFR (01/20/2025 11:12 AM CDT) eGFR 69 >=60 mL/min/1. 73 m2 Comment: Interpretive Data [...] was last reviewed 2021. Testing performed by: [address] [address] Blood 01/20/2025 11:1 2 AM CDT 01/20/2025 6:49 PM CDT Salma Segovia NP LAB BLOOD ORDERABLES Final Resul t [address] Department [place] [address] * (ABNORMAL) Basic metabolic panel (01/20/2025 11:12 AM CDT) Sodium 131(L) 135 - 145 mmol/L Comment:Testing performed by : [address], [address] Potassium, pl 3.7 3.3 - 4.9 mmol/L [facility] Comment:Testing performed by : [address], [address] Chloride 91(L) 97 - 110 mmol/L [facility] Comment:Testing performed by : [address], [address] CO2 26 22 - 32 mmol/L [facility] Comment:Testing performed by : [address], [address] Anion gap 14 2 - 15 mmol/L [facility] Comment:Testing performed by : [address], [address] BUN 11 6 - 25 mg/dL [facility] Comment:Testing performed by : [address], [address] Creatinine 0.88 0.60 - 1.10 mg/dL [facility] Comment:Testing performed by : [address], [address] Glucose 109 70 - 199 mg/dL [facility] Comment: Interpretive Data Fasting glucose >/= [...] was last revised 2022. Testing performed by: [facility], [address] [place] [address]., [address] Calcium 8.9 8.5 - 10.3 mg/dL [facility] Comment:Testing performed by : [facility], [address] [place] [address]., [address] Blood 01/20/2025 11:1 2 AM CDT 01/20/2025 6:14 PM CDT us Salma Segovia NP LAB BLOOD ORDERABLES Final Resul t [facility] [address] [place] [address] Department [place] [address] * Screening Mammogram Bilateral W Virgilio (01/20/2025 10:17 AM CDT) Anatomical Region Laterality Modality Breast Bilateral Mammography 01/20/2025 11:2 7 AM CDT Impressions 01/20/2025 11:27 AM CDT There is no mammographic evidence of malignancy. A 1 year screening mammogram is recommended. BI-RADS: 1 - Negative. The patient has been or will be contacted. The patient will be entered into a reminder system with a target due date of 1 year for her next mammogram. Electronically signed by: Nanci Echeverria M.D. Narrative 01/20/2025 11:27 AM CDT EXAMINATION: SCREENING MAMMOGRAM BILATERAL W VIRGILIO ORDERING HEALTHCARE PROVIDER: MABEL MULLINS HISTORY: Routine screening mammography. COMPARISON: 01/12/2024, 12/12/2022, 10/10/2021, 10/09/2020 TECHNIQUE: CC and MLO views of the bilateral breasts were obtained with digital technique using breast tomosynthesis with C view. Computer aided detection was utilized. FINDINGS: DENSITY: There are scattered areas of fibroglandular density. BREASTS: There are no suspicious masses, suspicious calcifications, or other suspicious findings in either breast. There has been no suspicious interval change. us Mabel Mullins MD IMG MAMMO PROCEDURES Final Re sult * SCAN - RADIOLOGY/IMAGING (01/06/2025 8:52 AM CDT) Anatomical Region Laterality Modality Other us Mabel Mullins MD Final Result * eGFR (12/21/2024 11:58 AM COMPUTERIZED MILL MILL RECORDER) eGFR 77 >=60 mL/min/1. 73 m2 Comment: [...] was last reviewed 2021. Testing performed by: [address] [place] [address] Blood 12/21/2024 11:5 8 AM COMPUTERIZED MILL MILL RECORDER 12/21/2024 6:26 PM COMPUTERIZED MILL MILL RECORDER us Mabel Mullins MD LAB BLOOD ORDERABLES Final Re sult [facility] [address] [facility] Department [place] [address] * Thyroid Function [place] (12/21/2024 11:58 AM COMPUTERIZED MILL MILL RECORDER) TSH 0.32 0.30 - 4.20 mcIUnit/mL Comment:Testing performed by : [address] [place] [address] Blood 12/21/2024 11:5 8 AM COMPUTERIZED MILL MILL RECORDER 12/21/2024 6:10 PM COMPUTERIZED MILL MILL RECORDER us Mabel Mullins MD LAB BLOOD ORDERABLES Final Re sult [address] Department [place] [address] * (ABNORMAL) Basic metabolic panel (12/21/2024 11:58 AM COMPUTERIZED MILL MILL RECORDER) Sodium 128(L) 135 - 145 mmol/L Comment:Testing performed by : [facility], [address] [place] [address]., [address] Potassium, pl 3.6 3.3 - 4.9 mmol/L [facility] Comment:Testing performed by : [address] [address] Chloride 89(L) 97 - 110 mmol/L [facility] Comment:Testing performed by : [address] [address] CO2 26 22 - 32 mmol/L [facility] Comment:Testing performed by : [address] [address] Anion gap 13 2 - 15 mmol/L [facility] Comment:Testing performed by : [address] [address] BUN 13 6 - 25 mg/dL [facility] Comment:Testing performed by : [address], [address] Creatinine 0.81 0.60 - 1.10 mg/dL [facility] Comment:Testing performed by : [address], [address] Glucose 112 70 - 199 mg/dL [facility] Comment: Interpretive Data Fasting glucose >/= [...] was last revised 2022. Testing performed by: [facility], [address] [place] [address]., [address] Calcium 8.9 8.5 - 10.3 mg/dL [facility] Comment:Testing performed by : [facility], [address] [place] [address]., [address] Blood 12/21/2024 11:5 8 AM COMPUTERIZED MILL MILL RECORDER 12/21/2024 6:10 PM COMPUTERIZED MILL MILL RECORDER us Mabel Mullins MD LAB BLOOD ORDERABLES Final Re sult [facility] [address] [facility] Department of Laboratories [place] [id number] * COLONOSCOPY (04/03/2023 8:38 AM CDT) Anatomical Region Laterality Modality Other Narrative Procedure Note Obdulio Kumar MD - 04/03/2023 8:38 AM CDT [facility] Patient Name: Brigida Ordaz Procedure Date: 04/03/2023 8:38 AM Date of : 1950 Admit Type: Outpatient Age: 72 Gender: Female Attending MD: Obdulio Kumar M.D. Room: [facility] ENDOSCOPY ROOM 2 Note Status: Finalized Patient Profile: This is a 72 year old female hx of HLD, HTN, AFib status post cardioversion on Xarelto, CAD, thyroid nodules, hypothyroidism, chronic iron deficiency anemia and chronic hyponatremia here forcolonoscopy for iron-deficiency anemia. Last zobmapocxvy89/2014 showed hemorrhoids and mild diverticulosis. Nofamily history [...] procedure were verified by the physician, the design studio consultant and the architecture technician in the endoscopy suite. Mental Status [...] scope was passed under direct vision. TheColonoscope [id number] was introduced through the anus and advanced [...] 8:38 AM Procedure Code(s): --- Professional --- 17074, Colonoscopy, flexible; diagnostic, including collection of specimen(s) by brushing or washing, when performed (separateprocedure) --- Technical --- 97249, Colonoscopy, flexible; diagnostic, including collection of specimen(s) by brushing or washing, when performed (separateprocedure) Diagnosis Code(s): --- Professional --- K64.8, Other hemorrhoids K64.4, Residual hemorrhoidal skin tags D50.9, Iron deficiency anemia, unspecified --- Technical --- K64.8, Other hemorrhoids K64.4, Residual hemorrhoidal skin tags D50.9, Iron deficiency anemia, unspecified CPT copyright 2020 [employer]. All rights reserved. The codes documented in this report are preliminary and upon vertical roll operator reviewmay be revised to meet current compliance requirements. Recognized by the [employer] for promoting quality [...] F with given history of screening. 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 MF: HAYLEY Report ID: [id number] Reading Location: [place] [address] Procedure Note Lew Tiwari MD - 03/05/2023 EXAM DESCRIPTION: DEXA AXIAL SKELETON BONE DENSITY 1 OR MORE SITES REASON FOR STUDY: 72 y/o year old F with given history of screening. 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 MF: HAYLEY Report ID: [id number] Reading Location: [place] [address] Mabel Mullins MD IMG DXA PROCEDURES Final Resu lt * HEPATITIS C SCREENING (02/13/2017) [facility] HEP C Normal Comment:NEGATIVE Historical Provider HEALTH MAINTENANCE Final Result from Last 3 Months or Most Recently Relevant to Health Maintenance Insurance [facility] MEDICARE ADVANTAGE [facility] MDCR HMO REF [facility] MEDICARE ADVANTAGE Advance Directives For more information, please contact: [phone] * Full Code (Latest Code Status on [...] 4:48 AM 01/22/2018 5:06 PM Care Teams Release Of Information Clerk Relationship Specialty Start Date End Date Mabel Mullins MD [address] [place] [address] PCP - General Infectious Diseases 02/17/20 Jh Tena MD Consulting Physician Cardiology 01/08/18 Carmen Hurst MD Consulting Physician Neurology 01/08/18 Reji Clarke DO [address] [place] [address] Referring Physician Orthopedic Surgery 08/17/19 Vaughn Melendez MD [address] [place] [address] Consulting Physician Gastroenterology 08/03/20 Frederick Burton DMD [address] [place] [address] Dentist Dental Shipping/Receiving Clerk 04/12/21 Doris Brenner DO [address] [place] [address] [address] CHUCHO Tavera [address] [address] Consulting Physician Otolaryngology 12/28/21 Obdulio Kumar MD [address] [place] [address] [address] [place] [address] Consulting Physician Gastroenterology 04/03/23 [place] [id number] [address] Consulting Physician Orthopedic Surgery 04/24/23 El Vo MD [address] [address] Referring Physician Orthopedic Surgery 10/15/23 Pati Yang NP [address] [place] [address] [address] [place] [address] Nurse Practitioner Cardiology 03/31/24
--- OUTSIDE RECORDS SUMMARY | 2025-02-07 00:44 | XMS_ITS ---
Author Organization 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 Anemia 04/16/2015 MAY BRUNO RN JN Active Last Documented On 5 1:16PM ; [facility] Colonic Diverticulosis 04/16/2015 MAY BRUNO RN JN Active Last Documented On 5 1:15PM ; [facility] History of Prior Surgery: Stent 04/12/2014 LEAH BRUNO RN JN Active Last Documented On 4 8:44AM ; [facility] Note: Unchanged History of Hysterectomy 04/05/2013 MAY Landeros RN [place] Active Last Documented On 3 1:24PM ; [facility] Note: Unchanged URGE INCONTINENCE 03/07/2011 CHRISSIE ROSADO M.D. Active Last Documented On 1 10:51AM ; [facility] Breast Fibroadenosis Chronic 01/25/2010 MAY M KIANA RN WHN P BC Active Last Documented On 04/13/2015 8:29AM ; [facility] Note: pt s/p removal and all mammogram p erformed by Dr. Clifford at breast cancer center CYST OF THYROID 01/25/2010 CHRISSIE RODRIGUEZ M.D. Active Last Documented On 01/25/2010 1:41PM ; [facility] Note: pt to see ent and shagger Esophageal Reflux 01/15/2010 DARSHANA TORRES MD Active Last Documented On 0 10:38PM ; [facility] Hyperlipidemia 02/09/2009 DARSHANA TORRES MD Active Last Documented On 0 10:38PM ; [facility] Essential Hypertension Benign 02/09/2009 DARSHANA TORRES MD Active Last Documented On 0 10:38PM ; [facility] Plan of Treatment Findings Encounter Date She [...] 11/21/2022 Last Documented On 3 3:45PM ; [facility] I provided her with the righ t knee Gelsyn injection. This was the second injection in the series. She will follow up next week for the third and final injection in the series FOLLOW UP with SHAQ Banegas 11/14/2022 Last Documented On 3 3:16PM ; [facility] I provided her with the righ t knee Gelsyn injection. This was the first injection in the series. She will follow up next week for the second injection in the series FOLLOW UP with SHAQ Banegas 11/07/2022 Last Documented On 3 3:41PM ; [facility] We did provide her with a ri [...] Documented On 2 10:08AM ; [facility] She was provided with a righ t knee steroid injection today. She tolerated that without difficulty. She need to wait at least three months before repeat injection. She can follow up with me on an as-needed basis FOLLOW UP with SHAQ Banegas 06/27/2022 Last Documented On 2 2:59PM ; [facility] I think that she likely has sustained [...] Documented On 2 1:35PM ; [facility] Ordered Clinical summary pro vided to patient DATA CLERK EXAM with MAY BRUNO RN JN 05/27/2017 Last Documented On 7 9:43AM ; [facility] Ordered Clinical summary pro vided to patient ANNUAL GAS FLOW REGULATOR EXAM with MAY BRUNO RN JN 05/02/2016 Last Documented On 6 3:14PM ; [facility] Ordered Clinical summary pro vided to patient ANNUAL GAS FLOW REGULATOR EXAM with MAY BRUNO RN JN 04/13/2015 Last Documented On 5 8:37AM ; [facility] Ordered Clinical summary pro vided to patient ANNUAL GAS FLOW REGULATOR EXAM with MAY BRUNO RN JN 04/12/2014 Last Documented On 4 8:44AM ; [facility] Ordered Clinical summary pro vided to patient NEW DATA CLERK EXAM with MAY BRUNO RN JN 04/05/2013 Last Documented On 3 1:38PM ; [facility] Ordered follow-up visit as n eeded with an office visit.. Instructed patient to start sudafed PE and arbinoxa as an antihistamine. If sx are not clearing in the next month consider having patient see ENT SICK VISIT with STEVEN FLORES PA-C 03/07/2011 Last Documented On 1 3:17PM ; [facility] Ordered follow-up visit as n eeded with [...] Documented On 1 2:54PM ; [facility] Ordered follow-up visit as n eeded with an office visit.. Patient to return next week for fasting bloodwork SICK VISIT with STEVEN FLORES PA-C 08/20/2010 Last Documented On 0 5:52PM ; [facility] Ordered follow-up visit as n eeded with an office visit. 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 Has chronic cough and many treatments without success Last Documented On 9 8:31AM ; [facility] Tractor Crane Operator [address] [id number] - ALLERGIC RHINITIS NOS Note: DR GERBER Last Documented On 9 3:55PM ; [facility] Development Planner [facility] Tedri nology - [address] [place] [address] - Note: Patient needs thyroid nodule biopsy (I did not have good luck with this last time at [facility] so I prefer other facility) Last Documented On 9 11:16AM ; [facility] Other Note: U/S GUIDED BIOPSY OF T HE THYROID NODULE Last Documented On 9 10:32PM ; [facility] Orthopedic WINDY KIRKLAND MD SPRAIN OF KNE E & LEG NOS Note: Dr. Kirkland please Last Documented On 1 12:27PM ; [facility] Instructions to patient Intervention and counseling on cessation of tobacco use Last Documented On 3 3:14PM ; [facility] Intervention and counseling on cessation of tobacco use Last Documented On 3 3:29PM ; [facility] Intervention and counseling on cessation of tobacco use Last Documented On 2 9:56AM ; [facility] Intervention and counseling on cessation of tobacco use Last Documented On 2 2:50PM ; [facility] Instructed to call if excess grant bleeding or abdominal/pelvic pain Last Documented On 7 9:26AM ; [facility] Instructions For Patient: Mo nthly Self Breast Exam Last Documented On 7 9:26AM ; [facility] Recommend diet and exercise at least 30 min three times per week Last Documented On 7 9:26AM ; [facility] Instructions for patient : B reast Self Exam discussed and technique reviewed Last Documented On 6 2:56PM ; [facility] Instructed to call if excess grant bleeding or abdominal/pelvic pain Last Documented On 6 2:56PM ; [facility] Recommend diet and exercise at least 30 min three times per week Last Documented On 6 2:56PM ; [facility] Instructions for patient : B reast Self Exam discussed and technique reviewed Last Documented On 5 8:15AM ; [facility] Instructed to call if excess grant bleeding or abdominal/pelvic pain Last Documented On 5 8:15AM ; [facility] Recommend diet and exercise at least 30 min three times per week Last Documented On 5 8:15AM ; [facility] Recommend preventative vacci nation including but not limited to influenza/flu vaccine, DTP, Rubella, Hepatitis B vaccination series Last Documented On 5 8:15AM ; [facility] Instructions for patient : B reast Self Exam discussed and technique reviewed Last Documented On 4 8:18AM ; [facility] Instructed to call if excess grant bleeding or abdominal/pelvic pain Last Documented On 4 8:18AM ; [facility] Recommend diet and exercise at least 30 min three times per week Last Documented On 4 8:18AM ; [facility] Recommend preventative vacci nation including but not limited to influenza/flu vaccine, DTP, Rubella, Hepatitis B vaccination series Last Documented On 4 8:18AM ; [facility] Instructions for patient : B reast Self Exam discussed and technique reviewed Last Documented On 3 12:56PM ; [facility] Instructed to call if excess grant bleeding or abdominal/pelvic pain Last Documented On 3 12:56PM ; [facility] Instructions For Patient: Mo nthly Self Breast Exam Last Documented On 3 12:56PM ; [facility] Recommend diet and exercise at least 30 min three times per week Last Documented On 3 12:56PM ; [facility] Recommend CBC, TSH, fasting glucose, fasting lipid panel if patient aged 25 or older Last Documented On 3 12:56PM ; [facility] Recommend preventative vacci nation including but not limited to influenza/flu vaccine, DTP, Rubella, Hepatitis B vaccination series Last Documented On 3 12:56PM ; [facility] Instructions for patient : B reast Self Exam discussed. Reviewed monthly self breast examination and technique Last Documented On 2 10:45AM ; [facility] Recommend diet and exercise at least 30 min three times per week Last Documented On 2 10:45AM ; [facility] Recommend preventative vacci nation including but not limited to influenza/flu vaccine, DTP, Rubella, Hepatitis B vaccination series Last Documented On 2 10:45AM ; [facility] Recommend annual pap smear e xamination or every three year if high risk hpv negative and 3 consecutive normal pap examination during preceding three years Last Documented On 2 10:45AM ; [facility] Recommend TSH, fasting gluco se, fasting lipid panel, CBC, BMP Last Documented On 2 10:45AM ; [facility] Recommend Calcium supplement ation and weight bearing exercise Last Documented On 2 10:45AM ; [facility] Recommended Bone Density Last Documented On 2 10:45AM ; [facility] Recommended Colonoscopy Pt r [...] responsibility regarding scheduling and follow up with steel burner Last Documented On 2 10:45AM ; [facility] Instructions for patient : B reast Self Exam discussed. Reviewed monthly self breast examination and technique Last Documented On 10:33AM ; [facility] Recommend diet and exercise at least 30 min three times per week Last Documented On 1 10:33AM ; [facility] Discussed Gardasil vaccinati on and recommend vaccination for HPV prevention. Handout given. Patient undertsands sexual transmission of high-risk HPV and association with abnormal pap smear and cervical cancer. recommend to decrease high risk behaviors such as: number of sexual partners, smoking, and contraceptive use Last Documented On 10:33AM ; [facility] Recommend preventative vacci nation including but not limited to influenza/flu vaccine, DTP, Rubella, Hepatitis B vaccination series Last Documented On 10:33AM ; [facility] Recommend annual pap smear e xamination or every three year if high risk hpv negative and 3 consecutive normal pap examination during preceding three years Last Documented On 05/19/201 1 10:33AM ; [facility] Recommend TSH, fasting gluco se, fasting lipid panel, CBC, BMP Last Documented On 1 10:33AM ; [facility] Recommend Calcium supplement ation and weight bearing exercise Last Documented On 1 10:33AM ; [facility] Recommended Bone Density Last Documented On 1 10:33AM ; [facility] Recommended Colonoscopy Pt r [...] responsibility regarding scheduling and follow up with steel burner Last Documented On 1 10:33AM ; [facility] Instructions for patient : B reast Self Exam discussed. Reviewed monthly self breast examination and technique Last Documented On 0 1:26PM ; [facility] Recommend diet and exercise at least 30 min three times per week Last Documented On 0 1:26PM ; [facility] Discussed Gardasil vaccinati on and recommend vaccination for HPV prevention. Handout given. Patient undertsands sexual transmission of high-risk HPV and association with abnormal pap smear and cervical cancer. recommend to decrease high risk behaviors such as: number of sexual partners, smoking, and contraceptive use Last Documented On 0 1:26PM ; [facility] Recommend preventative vacci nation including but not limited to influenza/flu vaccine, DTP, Rubella, Hepatitis B vaccination series Last Documented On 0 1:26PM ; [facility] Recommend annual pap smear e xamination or every three year if high risk hpv negative and 3 consecutive normal pap examination during preceding three years Last Documented On 0 1:26PM ; [facility] Recommend TSH, fasting gluco se, fasting lipid panel, CBC, BMP Last Documented On 0 1:26PM ; [facility] Recommend Calcium supplement ation and weight bearing exercise Last Documented On 0 1:26PM ; [facility] Recommended Bone Density Last Documented On 0 1:26PM ; [facility] Recommended Colonoscopy Pt r [...] responsibility regarding scheduling and follow up with steel burner Last Documented On 0 1:26PM ; [facility] Education and Decision Aids were provided during visit for: Patient Education: Daily yoabny cium and vitamin D Last Documented On 7 9:26AM ; [facility] Patient Education: Daily yobany cium and vitamin D Last Documented On 6 2:56PM ; [facility] Patient Education: Daily yobany cium and vitamin D Last Documented On 5 8:15AM ; [facility] Patient Education: Daily yobany cium and vitamin D Last Documented On 4 8:18AM ; [facility] Patient Education: Daily yobany cium and vitamin D Last Documented On 3 12:56PM ; [facility] Patient Education: weight be aring exercise Last Documented On 3 12:56PM ; [facility] Patient will maintain adequa te intake of dietary Ca+ and Mg+ Last Documented On 3 12:56PM ; [facility] Assessments Includes: Assessments for all patient encounters Findings Encounter Date Localized primary osteoarthr itis of right knee FOLLOW UP with SHAQ Banegas 11/21/2022 Last Documented On 3 3:45PM ; [facility] Localized primary osteoarthr itis of right knee FOLLOW UP with SHAQ Banegas 11/14/2022 Last Documented On 3 3:16PM ; [facility] Localized primary osteoarthr itis of right knee FOLLOW UP with SHAQ Banegas 11/07/2022 Last Documented On 3 3:41PM ; [facility] Localized primary osteoarthr itis of right knee FOLLOW UP with SHAQ Banegas 09/27/2022 Last Documented On 2 10:08AM ; [facility] Assessment of medial right k nee joint pain FOLLOW UP with SHAQ Banegas 06/27/2022 Last Documented On 2 2:59PM ; [facility] Assessment of medial right k nee joint pain ORTHO ESTABLISHED PATIENT with SHAQ Banegas 06/14/2022 Last Documented On 2 1:35PM ; [facility] NORMAL FEMALE EXAM DATA CLERK EXAM with MAY Adrian [facility] 05/27/2017 Last Documented On 7 9:43AM ; [facility] NORMAL FEMALE EXAM ANNUAL GAS FLOW REGULATOR EXAM with MAY BRUNO RN [facility] 05/02/2016 Last Documented On 6 3:14PM ; [facility] Benign essential hypertension ANNUAL GAS FLOW REGULATOR EXAM with MAY BRUNO RN [facility] 04/13/2015 Last Documented On 5 8:37AM ; [facility] Chronic fibroadenosis of the breast CHUCK AL GAS FLOW REGULATOR EXAM with MAY BRUNO RN [facility] 04/13/2015 Last Documented On 5 8:37AM ; [facility] Routine gynecological exam ANNUAL GAS FLOW REGULATOR EXAM with MAY BRUNO RN [facility] 04/13/2015 Last Documented On 5 8:37AM ; [facility] Routine gynecological exam ANNUAL GAS FLOW REGULATOR EXAM with MAY BRUNO RN [facility] 04/12/2014 Last Documented On 4 8:44AM ; [facility] Screening Malig. Neoplasm Rectum ANNUAL GAS FLOW REGULATOR EXAM with MAY BRUNO RN [facility] 04/12/2014 Last Documented On 4 8:44AM ; [facility] NORMAL FEMALE EXAM NEW DATA CLERK EXAM with MAY CALLAHAN RN [facility] 04/05/2013 Last Documented On 3 1:38PM ; [facility] Routine gynecological exam NEW DATA CLERK EXAM with JULIANNE BRUNO RN [facility] 04/05/2013 Last Documented On 3 1:38PM ; [facility] Screening Malig. Neoplasm Rectum NEW DATA CLERK EXAM with MAY BRUNO RN [facility] 04/05/2013 Last Documented On 3 1:38PM ; [facility] Vaginal candidiasis NEW DATA CLERK EXAM with MAY PARKS RN [facility] 04/05/2013 Last Documented On 3 1:38PM ; [facility] Asymptomatic postmenopausal status ANNUA L GAS FLOW REGULATOR EXAM with CHRISSIE ROSADO M.D. 03/11/2012 Last Documented On 2 10:59AM ; [facility] History of breast neoplasm malignant KHUSHBOO UAL GAS FLOW REGULATOR EXAM with CHRISSIE ROSADO M.D. 03/11/2012 Last Documented On 2 10:59AM ; [facility] MAMMOGRAM SCREENING ANNUAL GAS FLOW REGULATOR EXAM with CHRISSIE ROSADO M.D. 03/11/2012 Last Documented On 2 10:59AM ; [facility] NORMAL FEMALE EXAM ANNUAL GAS FLOW REGULATOR EXAM with CHRISSIE ROSADO M.D. 03/11/2012 Last Documented On 2 10:59AM ; [facility] Screening Malig. Neoplasm Rectum ANNUAL GAS FLOW REGULATOR EXAM with CHRISSIE ROSADO M.D. 03/11/2012 Last Documented On 2 10:59AM ; [facility] Asymptomatic postmenopausal status ANNUA L GAS FLOW REGULATOR EXAM with CHRISSIE ROSADO M.D. 03/07/2011 Last Documented On 1 10:57AM ; [facility] MAMMOGRAM SCREENING ANNUAL GAS FLOW REGULATOR EXAM with CHRISSIE ROSADO M.D. 03/07/2011 Last Documented On 1 10:57AM ; [facility] NORMAL FEMALE EXAM ANNUAL GAS FLOW REGULATOR EXAM with CHRISSIE ROSADO M.D. 03/07/2011 Last Documented On 1 10:57AM ; [facility] Screening Malig. Neoplasm Rectum ANNUAL GAS FLOW REGULATOR EXAM with CHRISSIE ROSADO M.D. 03/07/2011 Last Documented On 1 10:57AM ; [facility] Allergic rhinitis SICK VISIT with STEVEN Elkins-Makenzie 03/07/2011 Last Documented On 1 3:17PM ; [facility] Eustachian tube dysfunction SICK VISIT with NGOC FLORES PA-C 03/07/2011 Last Documented On 1 3:17PM ; [facility] Closed fracture of the tibia ? PROBLEM VISIT wit h STEVEN FLORES PA-C 12/10/2010 Last Documented On 1 2:54PM ; [facility] Knee sprain PROBLEM VISIT with STEVEN FLORES PA-C 12/10/2010 Last Documented On 1 2:54PM ; [facility] Benign essential hypertension CHECK UP with CHIP TORRES MD 09/19/2010 Last Documented On 0 10:42PM ; [facility] Esophageal reflux CHECK UP with DARSHANA KAPOOR MD 09/19/2010 Last Documented On 0 10:42PM ; [facility] Hyperlipidemia CHECK UP with DARSHANA TORRES MD 09/19/2010 Last Documented On 0 10:42PM ; [facility] Nontoxic nodular goiter CHECK UP with DARSHANA COOPER MD 09/19/2010 Last Documented On 0 10:42PM ; [facility] Bronchitis SICK VISIT with STEVEN Banegas 08/20/2010 Last Documented On 0 5:52PM ; [facility] Herpes simplex type I mouth SICK VISIT with NGOC FLORES PA-C 08/20/2010 Last Documented On 0 5:52PM ; [facility] Thyroid disorder nodules, benign SICK VISIT with STEVEN FLORES PA-C 08/20/2010 Last Documented On 0 5:52PM ; [facility] Asymptomatic postmenopausal status DATA CLERK EXAM with CHRISSIE ROSADO M.D. 01/25/2010 Last Documented On 0 2:47PM ; [facility] MAMMOGRAM SCREENING DATA CLERK EXAM with CHRISSIE GRAHAM M.D. 01/25/2010 Last Documented On 0 2:47PM ; [facility] NORMAL FEMALE EXAM DATA CLERK EXAM with CHRISSIE MUNGUIA M.D. 01/25/2010 Last Documented On 0 2:47PM ; [facility] SCREENING FOR CONDITION NEC DATA CLERK EXAM with TRES ROSADO M.D. 01/25/2010 Last Documented On 0 2:47PM ; [facility] Screening Malig. Neoplasm Rectum DATA CLERK EXAM with Cj ROSADO M.D. 01/25/2010 Last Documented On 0 2:47PM ; [facility] Assessment of cough RECHECK with STEVEN Dillon 09/07/2009 Last Documented On 9 4:45PM ; [facility] Dysphagia RECHECK with STEVEN FLORES PA-C 1 11/07/2008 Last Documented On 9 4:45PM ; [facility] Goiter (diffuse nontoxic) RECHECK with STEVEN TOMPKINS-C 09/07/2009 Last Documented On 9 4:45PM ; [facility] Voice disturbance RECHECK with STEVEN TOMPKINS-C 09/07/2009 Last Documented On 9 4:45PM ; [facility] Allergic rhinitis MED CHECK with DARSHANA SYLVESTER MD 07/07/2009 Last Documented On 9 9:38AM ; [facility] Assessment of cough MED CHECK with DARSHANA WELLS MD 07/07/2009 Last Documented On 9 9:38AM ; [facility] Benign essential hypertension MED CHECK with VALERIA TORRES MD 07/07/2009 Last Documented On 9 9:38AM ; [facility] Chronic reflux esophagitis MED CHECK with DARSHANA TORRES MD 07/07/2009 Last Documented On 9 9:38AM ; [facility] Fatigue MED CHECK with DARSHANA Daniel MD 07/07/2009 Last Documented On 9 9:38AM ; [facility] Hyperlipidemia MED CHECK with DARSHANA Daniel MD 07/07/2009 Last Documented On 9 9:38AM ; [facility] Allergic drug reaction SICK VISIT with STEVEN TOMPKINS-C 06/19/2009 Last Documented On 9 9:49PM ; [facility] Benign essential hypertension SICK VISIT with MILTON TOMPKINS-C 06/19/2009 Last Documented On 9 9:49PM ; [facility] Assessment of cough RECHECK with TANNER TOMPKINS-C 05/12/2009 Last Documented On 9 9:32AM ; [facility] Pneumonia SICK VISIT with STEVEN TOMPKINS- C 05/05/2009 Last Documented On 9 4:06PM ; [facility] Bronchitis SICK VISIT with STEVEN TOMPKINS- C 04/20/2009 Last Documented On 9 9:51AM ; [facility] Acute bronchitis SICK VISIT with STEVEN Dillon 04/10/2009 Last Documented On 9 11:51AM ; [facility] Instructions Includes: Instructions for all patient encounters Instructions to patient Intervention and counseling on cessation of tobacco use Last Documented On 3 3:14PM ; [facility] Intervention and counseling on cessation of tobacco use Last Documented On 3 3:29PM ; [facility] Intervention and counseling on cessation of tobacco use Last Documented On 2 9:56AM ; [facility] Intervention and counseling on cessation of tobacco use Last Documented On 2 2:50PM ; [facility] Instructed to call if excess grant bleeding or abdominal/pelvic pain Last Documented On 7 9:26AM ; [facility] Instructions For Patient: Mo nthly Self Breast Exam Last Documented On 7 9:26AM ; [facility] Recommend diet and exercise at least 30 min three times per week Last Documented On 7 9:26AM ; [facility] Instructions for patient : B reast Self Exam discussed and technique reviewed Last Documented On 6 2:56PM ; [facility] Instructed to call if excess grant bleeding or abdominal/pelvic pain Last Documented On 6 2:56PM ; [facility] Recommend diet and exercise at least 30 min three times per week Last Documented On 6 2:56PM ; [facility] Instructions for patient : B reast Self Exam discussed and technique reviewed Last Documented On 5 8:15AM ; [facility] Instructed to call if excess grant bleeding or abdominal/pelvic pain Last Documented On 5 8:15AM ; [facility] Recommend diet and exercise at least 30 min three times per week Last Documented On 5 8:15AM ; [facility] Recommend preventative vacci nation including but not limited to influenza/flu vaccine, DTP, Rubella, Hepatitis B vaccination series Last Documented On 5 8:15AM ; [facility] Instructions for patient : B reast Self Exam discussed and technique reviewed Last Documented On 4 8:18AM ; [facility] Instructed to call if excess grant bleeding or abdominal/pelvic pain Last Documented On 4 8:18AM ; [facility] Recommend diet and exercise at least 30 min three times per week Last Documented On 4 8:18AM ; [facility] Recommend preventative vacci nation including but not limited to influenza/flu vaccine, DTP, Rubella, Hepatitis B vaccination series Last Documented On 4 8:18AM ; [facility] Instructions for patient : B reast Self Exam discussed and technique reviewed Last Documented On 3 12:56PM ; [facility] Instructed to call if excess grant bleeding or abdominal/pelvic pain Last Documented On 3 12:56PM ; [facility] Instructions For Patient: Mo nthly Self Breast Exam Last Documented On 3 12:56PM ; [facility] Recommend diet and exercise at least 30 min three times per week Last Documented On 3 12:56PM ; [facility] Recommend CBC, TSH, fasting glucose, fasting lipid panel if patient aged 25 or older Last Documented On 3 12:56PM ; [facility] Recommend preventative vacci nation including but not limited to influenza/flu vaccine, DTP, Rubella, Hepatitis B vaccination series Last Documented On 3 12:56PM ; [facility] Instructions for patient : B reast Self Exam discussed. Reviewed monthly self breast examination and technique Last Documented On 2 10:45AM ; [facility] Recommend diet and exercise at least 30 min three times per week Last Documented On 2 10:45AM ; [facility] Recommend preventative vacci nation including but not limited to influenza/flu vaccine, DTP, Rubella, Hepatitis B vaccination series Last Documented On 2 10:45AM ; [facility] Recommend annual pap smear e xamination or every three year if high risk hpv negative and 3 consecutive normal pap examination during preceding three years Last Documented On 2 10:45AM ; [facility] Recommend TSH, fasting gluco se, fasting lipid panel, CBC, BMP Last Documented On 2 10:45AM ; [facility] Recommend Calcium supplement ation and weight bearing exercise Last Documented On 2 10:45AM ; [facility] Recommended Bone Density Last Documented On 2 10:45AM ; [facility] Recommended Colonoscopy Pt r [...] responsibility regarding scheduling and follow up with steel burner Last Documented On 2 10:45AM ; [facility] Instructions for patient : B reast Self Exam discussed. Reviewed monthly self breast examination and technique Last Documented On 1 10:33AM ; [facility] Recommend diet and exercise at least 30 min three times per week Last Documented On 10:33AM ; [facility] Discussed Gardasil vaccinati on and recommend vaccination for HPV prevention. Handout given. Patient undertsands sexual transmission of high-risk HPV and association with abnormal pap smear and cervical cancer. recommend to decrease high risk behaviors such as: number of sexual partners, smoking, and contraceptive use Last Documented On 10:33AM ; [facility] Recommend preventative vacci nation including but not limited to influenza/flu vaccine, DTP, Rubella, Hepatitis B vaccination series Last Documented On 10:33AM ; [facility] Recommend annual pap smear e xamination or every three year if high risk hpv negative and 3 consecutive normal pap examination during preceding three years Last Documented On 10:33AM ; [facility] Recommend TSH, fasting gluco se, fasting lipid panel, CBC, BMP Last Documented On 1 10:33AM ; [facility] Recommend Calcium supplement ation and weight bearing exercise Last Documented On 1 10:33AM ; [facility] Recommended Bone Density Last Documented On 10:33AM ; [facility] Recommended Colonoscopy Pt r [...] responsibility regarding scheduling and follow up with steel burner Last Documented On 1 10:33AM ; [facility] Instructions for patient : B reast Self Exam discussed. Reviewed monthly self breast examination and technique Last Documented On 0 1:26PM ; [facility] Recommend diet and exercise at least 30 min three times per week Last Documented On 0 1:26PM ; [facility] Discussed Gardasil vaccinati on and recommend vaccination for HPV prevention. Handout given. Patient undertsands sexual transmission of high-risk HPV and association with abnormal pap smear and cervical cancer. recommend to decrease high risk behaviors such as: number of sexual partners, smoking, and contraceptive use Last Documented On 0 1:26PM ; [facility] Recommend preventative vacci nation including but not limited to influenza/flu vaccine, DTP, Rubella, Hepatitis B vaccination series Last Documented On 0 1:26PM ; [facility] Recommend annual pap smear e xamination or every three year if high risk hpv negative and 3 consecutive normal pap examination during preceding three years Last Documented On 0 1:26PM ; [facility] Recommend TSH, fasting gluco se, fasting lipid panel, CBC, BMP Last Documented On 0 1:26PM ; [facility] Recommend Calcium supplement ation and weight bearing exercise Last Documented On 0 1:26PM ; [facility] Recommended Bone Density Last Documented On 0 1:26PM ; [facility] Recommended Colonoscopy Pt r [...] responsibility regarding scheduling and follow up with steel burner Last Documented On 0 1:26PM ; [facility] Education and Decision Aids were provided during visit for: Patient Education: Daily yobany cium and vitamin D Last Documented On 7 9:26AM ; [facility] Patient Education: Daily yobany cium and vitamin D Last Documented On 6 2:56PM ; [facility] Patient Education: Daily yobany cium and vitamin D Last Documented On 5 8:15AM ; [facility] Patient Education: Daily yobany cium and vitamin D Last Documented On 4 8:18AM ; [facility] Patient Education: Daily yobany cium and vitamin D Last Documented On 3 12:56PM ; [facility] Patient Education: weight be aring exercise Last Documented On 3 12:56PM ; [facility] Patient will maintain adequa te intake of dietary Ca+ and Mg+ Last Documented On 3 12:56PM ; [facility] Medical Equipment - Implanted Devices Includes: [...] On 06/14/2022 1:28PM By Ira ALVA ; [facility] hydrALAZINE HCl 100 MG Oral Tablet 06/14/2022 Provid er: Diagnosis: Last Documented On 06/14/2022 1:15PM By MARCY BHAT LPN ; [facility] Gabapentin 100 MG Oral Capsule 06/14/2022 Provider: Diagnosis: Last Documented On 06/14/2022 1:15PM By MARCY BHAT LPN ; [facility] Valsartan-hydroCHLOROthiazide 320-25 MG Oral Tablet Provider: Diagnosis: Last Documented On 06/14/2022 1:12PM By MARCY BHAT LPN ; [facility] NexIUM 40 MG Oral Capsule Delayed Release 06/14/2022 Provider: Diagnosis: Last Documented On 06/14/2022 1:12PM By MARCY BHAT LPN ; [facility] Furosemide 40 MG Oral Tablet 06/14/2022 Provider: Diagnosis: Last Documented On 06/14/2022 1:11PM By MARCY BHAT LPN ; [facility] Amiodarone HCl 200 MG Oral Tablet 06/14/2022 Provide r: Diagnosis: Last Documented On 06/14/2022 1:10PM By MARCY BHAT LPN ; [facility] Xarelto 20 MG Oral Tablet 06/14/2022 Provider: Diagnosis: Last Documented On 06/14/2022 1:10PM By MARCY BHAT LPN ; [facility] Calcium 600 MG Tablet 05/02/2016 Provider: Diagnosis: Last Documented On 05/02/2016 2:58PM By CLAUDIA REYES MA ; [facility] Multi Vitamin Daily Tablet 05/02/2016 Provider: Diagnosis: Last Documented On 05/02/2016 2:58PM By CLAUDIA REYES MA ; [facility] Irbesartan 300 MG Tablet 05/02/2016 Provider: Diagnosis: Last Documented On 05/02/2016 2:58PM By CLAUDIA REYES MA ; [facility] Metoprolol Succinate ER 25 MG Tablet Extended Re lease 24 Hour 05/02/2016 Provider: Diagnosis: Last Documented On 05/02/2016 2:57PM By CLAUDIA REYES MA ; [facility] Levothyroxine Sodium 175 MCG Tablet 05/02/2016 Provi blu: Diagnosis: Last Documented On 05/02/2016 2:57PM By CLAUDIA REYES MA ; [facility] oxyBUTYnin Chloride 5 MG OR TABS 04/12/2014 Provider : Diagnosis: Last Documented On 04/12/2014 8:27AM By AIRAM SARAVIA ; [facility] Livalo 1 MG OR TABS 04/12/2014 Provider: Diagnosis: Last Documented On 04/12/2014 8:27AM By AIRAM SARAVIA ; [facility] Past Medications on file HydroCHLOROthiazide 25 MG Tablet 05/02/2016 - 06/14/20 22 Provider: Diagnosis: Last Documented On 06/14/2022 1:08PM By MARCY BHAT LPN ; [facility] Dexilant 60 MG Capsule Delayed Release 05/02/2016 - Provider: Diagnosis: Last Documented On 06/14/2022 1:08PM By MARCY BHAT LPN ; [facility] Micardis HCT 80-25 MG OR TABS 04/12/2014 - 05/02/2016 Provider: Diagnosis: Last Documented On 05/02/2016 2:55PM By CLAUDIA REYES MA ; [facility] Caltrate 600+D 600-800 MG-UNIT OR TABS 04/12/2014 - Provider: Diagnosis: Last Documented On 05/02/2016 2:58PM By CLAUDIA REYES MA ; [facility] NexIUM 40 MG OR PACK 04/12/2014 - 05/02/2016 Provider: Diagnosis: Last Documented On 05/02/2016 2:59PM By CLAUDIA REYES MA ; [facility] Terconazole 0.8% VA CREA 04/05/2013 - 04/14/2013 Provider: MAY BRUNO RN JN Diagnosis: CANDIDAL VULVOVA GINITIS 1 PAULA IN VAGINA EVERY NIGHT X 3 APPLY BID TO EXTERNAL AREA Last Documented On 3 1:26PM By MAY BRUNO JN- ; [facility] Diflucan 150 MG OR TABS 03/13/2012 - 03/14/2012 Provider: CHRISSIE ROSADO M.D. Diagnosis: CANDIDAL VULVOVA GINITIS 1 po x 1 day Last Documented On 2 12:45PM By DR. CHRISSIE ROSADO ; [facility] [id number] 1 MG OR CHEW 03/11/2012 - 04/12/2014 Provid er: Diagnosis: Last Documented On 04/12/2014 8:24AM By AIRAM SARAVIA ; [facility] Aciphex 20 MG OR TBEC 03/11/2012 - 04/12/2014 Provider : Diagnosis: Last Documented On 04/12/2014 8:24AM By AIRAM SARAVIA ; [facility] Lisinopril 10 MG OR TABS 03/11/2012 - 04/12/2014 Provi blu: Diagnosis: Last Documented On 04/12/2014 8:24AM By AIRAM SARAVIA ; [facility] oxyBUTYnin Chloride 5 MG OR TABS 07/01/2011 - 12/28/2011 Provider: DARSHANA KAPOOR MD Diagnosis: Last Documented On 1 12:11AM By DARSHANA TORRES MD ; [facility] Aciphex 20 MG OR TBEC 05/27/2011 - 08/25/2011 Provider : MERY KAUFFMAN PA-C Diagnosis: Last Documented On 1 4:37PM By MERY KAUFFMAN PA-C ; [facility] Lisinopril-hydroCHLOROthiazi de 20-12.5 MG TABS 04/29/2011 - 08/27/2011 Provider: STEVEN FLORES PA-C Diagnosis: 1 qd #30 Last Documented On 04/29/2011 12:46PM By STEVEN FLORES PA-C ; [facility] Carbinoxamine Maleate 4 MG OR TABS 03/29/2011 - 05/28/2011 Provider: DARSHANA TORRES MD Diagnosis: ALLERGIC RHINITI S NOS Last Documented On 03/29/2011 1:37PM By Rosy ALVA ; [facility] Oxytrol 3.9 MG/24HR TD PTTW 03/07/2011 - 05/06/2011 Provider: CHRISSIE JORDAN M.D. Diagnosis: URGE INCONTINENC E change patch q 72 hrs Last Documented On 1 10:56AM By DR. CHRISSIE ROSADO ; [facility] Carbinoxamine Maleate 4 MG OR TABS 03/07/2011 - 03/29/2011 Provider: STEVEN FLORES PA-C Diagnosis: ALLERGIC RHINITI S NOS Last Documented On 03/29/2011 1:37PM By Rosy ALVA ; [facility] NexIUM 40 MG OR CPDR 03/01/2011 - 03/31/2011 Provider: STEVEN FLORES PA-C Diagnosis: Last Documented On 03/01/2011 9:52AM By STEVEN FLORES PA-C ; [facility] Aciphex 20 MG OR TBEC 02/25/2011 - 05/27/2011 Provider : STEVEN FOLRES PA-C Diagnosis: Last Documented On 1 4:37PM By MERY KAUFFMAN PA-C ; [facility] Lisinopril-hydroCHLOROthiazi de 20-12.5 MG TABS 12/26/2010 - 04/29/2011 Provider: STEVEN FLORES PA-C Diagnosis: 1 qd #30 Last Documented On 04/29/2011 12:46PM By STEVEN FLORES PA-C ; [facility] oxyBUTYnin Chloride 5 MG OR TABS 12/26/2010 - 07/01/2011 Provider: DARSHANA KAPOOR MD Diagnosis: Last Documented On 1 12:10AM By DARSHANA TORRES MD ; [facility] Aciphex 20 MG OR TBEC 11/26/2010 - 02/25/2011 Provider : STEVEN FLORES PA-C Diagnosis: Last Documented On 02/25/2011 10:28AM By STEVEN FLORES PA-C ; [facility] Flonase 50 MCG/ACT NA SUSP 11/15/2010 - 12/15/2010 Provider: JULES Banegas Diagnosis: ACUTE SINUSITIS NOS 2 sprays each nostril qd Last Documented On 11/15/2010 3:45PM By JULES MCCARTHY PA-C ; [facility] Zithromax Z-Kash 250 MG OR TABS 11/15/2010 - 11/20/2010 Provider: JULES Banegas Diagnosis: ACUTE SINUSITIS NOS Last Documented On 11/15/2010 3:12PM By JULES MCCARTHY PA-C ; [facility] Cefprozil 500 MG OR TABS 10/25/2010 - 11/04/2010 Provi blu: STEVEN FLORES PA-C Diagnosis: Last Documented On 10/25/2010 10:11AM By STEVEN FLORES PA-C ; [facility] Augmentin 875-125 MG OR TABS 09/11/2010 - 09/21/2010 P rovider: STEVEN FLORES PA-C Diagnosis: Last Documented On 09/11/2010 11:00AM By STEVEN FLORES PA-C ; [facility] Lisinopril-hydroCHLOROthiazi de 20-12.5 MG TABS 08/30/2010 - 12/26/2010 Provider: STEVEN FLORES PA-C Diagnosis: 1 qd #30 Last Documented On 12/26/2010 11:22AM By STEVEN FLORES PA-C ; [facility] Valtrex 1 GM OR TABS 08/20/2010 - 08/21/2010 Provider: STEVEN FLORES PA-C Diagnosis: HERPES SIMPLEX N OS 2 tabs po now, repeat in 12 hours Last Documented On 08/20/2010 5:51PM By STEVEN FLORES PA-C ; [facility] Levaquin 750 MG OR TABS 08/20/2010 - 08/25/2010 Provid er: STEVEN FLORES PA-C Diagnosis: BRONCHITIS NOS Last Documented On 08/20/2010 5:51PM By STEVEN FLORES PA-C ; [facility] Tussionex Pennkinetic ER 10-8 MG/5ML OR LQCR 08/20/2010 - 09/19/2010 Provider: STEVEN Banegas Diagnosis: BRONCHITIS NOS one tsp po BID PRN Last Documented On 08/20/2010 5:51PM By STEVEN FLORES PA-C ; [facility] Aciphex 20 MG OR TBEC 08/06/2010 - 11/26/2010 Provider : STEVEN FLORES PA-C Diagnosis: Last Documented On 11/26/2010 11:52AM By STEVEN FLORES PA-C ; [facility] oxyBUTYnin Chloride 5 MG OR TABS 06/27/2010 - 12/27/19 11 Provider: STEVEN FLORES PA-C Diagnosis: Last Documented On 12/26/2010 11:23AM By Rosy ALVA ; [facility] Simvastatin 20 MG OR TABS 06/27/2010 - 12/24/2010 Prov ider: STEVEN FLORES PA-C Diagnosis: Last Documented On 06/27/2010 12:04PM By STEVEN FLORES PA-C ; [facility] Aciphex 20 MG OR TBEC 05/04/2010 - 08/06/2010 Provider : STEVEN FLORES PA-C Diagnosis: Last Documented On 08/06/2010 11:43AM By STEVEN FLORES PA-C ; [facility] Lisinopril-hydroCHLOROthiazi de 20-12.5 MG TABS 04/25/2010 - 08/30/2010 Provider: STEVEN FLORES PA-C Diagnosis: 1 qd #30 Last Documented On 08/30/2010 8:54AM By STEVEN FLORES PA-C ; [facility] Aciphex 20 MG OR TBEC 02/06/2010 - 05/04/2010 Provider : STEVEN FLORES PA-C Diagnosis: Last Documented On 05/04/2010 10:17AM By STEVEN FLORES PA-C ; [facility] Simvastatin 20 MG OR TABS 01/02/2010 - 06/27/2010 Prov ider: STEVEN FLORES PA-C Diagnosis: Last Documented On 06/27/2010 12:04PM By STEVEN FLORES PA-C ; [facility] oxyBUTYnin Chloride 5 MG OR TABS 01/02/2010 - 06/27/20 10 Provider: STEVEN FLORES PA-C Diagnosis: Last Documented On 06/27/2010 12:04PM By STEVEN FLORES PA-C ; [facility] Lisinopril-hydroCHLOROthiazi de 20-12.5 MG TABS 12/29/2009 - 04/25/2010 Provider: TANNER MYERS PA-C Diagnosis: 1 qd #30 Last Documented On 04/25/2010 12:22PM By STEVEN FLORES PA-C ; [facility] Aciphex 20 MG OR TBEC 08/31/2009 - 02/06/2010 Provider : STEVEN FLORES PA-C Diagnosis: Last Documented On 02/06/2010 8:41AM By STEVEN FLORES PA-C ; [facility] Lisinopril-hydroCHLOROthiazi de 20-12.5 MG TABS 08/28/2009 - 12/29/2009 Provider: STEVEN FLORES PA-C Diagnosis: Last Documented On 12/29/2009 11:24AM By TANNER MYERS ; [facility] Clarinex 5 MG OR TABS 07/21/2009 - 07/21/2009 Provider : TANNER MYERS PA-C Diagnosis: ALLERGIC RHINITI S NOS Last Documented On 07/21/2009 1:28PM By TANNER MYERS ; [facility] Nasacort AQ 55 MCG/ACT NA AERS 07/21/2009 - 07/21/2009 Provider: TANNER GRIFFITH PA-C Diagnosis: ALLERGIC RHINITI S NOS 2 sprays q nare qd Last Documented On 07/21/2009 1:28PM By TANNER MYERS ; [facility] Flonase 50 MCG/ACT NA SUSP 07/21/2009 - 08/20/2009 Pro vider: TANNER MYERS PA-C Diagnosis: 2 sprays q nare qd Last Documented On 07/21/2009 1:27PM By TANNER MYERS ; [facility] [place] 180 MG OR TABS 07/21/2009 - 08/20/2009 Provide r: TANNER MYERS PA-C Diagnosis: Last Documented On 07/21/2009 1:27PM By TANNER MYERS ; [facility] Nasacort AQ 55 MCG/ACT NA AERS 07/07/2009 - 07/21/2009 Provider: DARSHANA TORRES MD Diagnosis: ALLERGIC RHINITI S NOS Last Documented On 07/21/2009 12:12PM By TANNER MYERS ; [facility] Clarinex 5 MG OR TABS 07/07/2009 - 07/21/2009 Provider: DARSHANA TORRES MD Diagnosis: ALLERGIC RHINITI S NOS Last Documented On 07/21/2009 12:12PM By TANNER MYERS ; [facility] Protonix 40 MG OR TBEC 07/07/2009 - 07/17/2009 Provider: DARSHNAA KAPOOR MD Diagnosis: REFLUX ESOPHAGIT IS Last Documented On 9 9:04AM By DARSHANA TORRES MD ; [facility] Medrol (Kash) 4 MG OR TABS 07/07/2009 - 07/13/2009 Prov ider: DARSHANA TORRES MD Diagnosis: COUGH as directed Last Documented On 9 9:04AM By DARSHANA TORRES MD ; [facility] Lisinopril-hydroCHLOROthiazi de 20-12.5 MG TABS 07/07/2009 - 08/06/2009 Provider: DARSHANA HEATON M.D. Diagnosis: Last Documented On 07/07/2009 8:34AM By Rosy ALVA ; [facility] Simvastatin 20 MG OR TABS 07/06/2009 - 01/02/2010 Prov ider: STEVEN FLORES PA-C Diagnosis: Last Documented On 01/02/2010 10:36AM By STEVEN FLORES PA-C ; [facility] oxyBUTYnin Chloride 5 MG OR TABS 07/06/2009 - 01/03/20 Provider: STEVEN FLORES PA-C Diagnosis: Last Documented On 01/02/2010 10:36AM By STEVEN FLORES PA-C ; [facility] Xyzal 5 MG OR TABS 06/19/2009 - 2009 Provider: STEVEN FLORES PA-C Diagnosis: DRUG ALLERGY NEC Last Documented On 06/19/2009 9:49PM By STEVEN FLORES PA-C ; [facility] hydroCHLOROthiazide 25 MG TABS 9 - 07/07/2009 Provider: STEVEN FLORES PA-C Diagnosis: BENIGN HYPERTENS ION Last Documented On 07/07/2009 8:34AM By Rosy ALVA ; [facility] [place] 180 MG OR TABS 06/09/2009 - 12/06/2009 Provide r: STEVEN FLORES PA-C Diagnosis: Last Documented On 06/09/2009 12:56PM By STEVEN FLORES PA-C ; [facility] Benicar HCT 40-12.5 MG OR TABS 06/09/2009 - 07/07/2009 Provider: STEVEN FLORES PA-C Diagnosis: Last Documented On 07/07/2009 8:35AM By Rosy ALVA ; [facility] Aciphex 20 MG OR TBEC 06/05/2009 - 08/31/2009 Provider : STEVEN FLORES PA-C Diagnosis: Last Documented On 08/31/2009 3:11PM By STEVEN FLORES PA-C ; [facility] oxyBUTYnin Chloride 5 MG OR TABS 06/03/2009 - 07/03/20 Provider: Diagnosis: Last Documented On 07/05/2009 11:25AM By Jonny Lamb ; [facility] Medrol (Kash) 4 MG OR TABS 05/13/2009 - 07/07/2009 Prov ider: TANNER MYERS PA-C Diagnosis: COUGH as directed Last Documented On 9 9:04AM By DARSHANA TORRES MD ; [facility] Advair Diskus 250-50 MCG/DOSE IN MISC 05/13/2009 - 06/10/2009 Provider: TANNER GRIFFITH PA-C Diagnosis: COUGH Last Documented On 05/13/2009 9:31AM By TANNER MYERS ; [facility] Ventolin HFA 108 (90 Base) MCG/ACT IN AERS 05/13/2009 - 06/12/2009 Provider: TANNER GRIFFITH PA-C Diagnosis: COUGH 2 puffs q 4-6 hours prn. Last Documented On 05/13/2009 9:31AM By TANNER MYERS ; [facility] Singulair 10 MG OR TABS 05/05/2009 - 05/19/2009 Provider: STEVEN Banegas Diagnosis: PNEUMONIA, ORGAN ISM NOS Last Documented On 05/05/2009 4:06PM By STEVEN FLORES PA-C ; [facility] Lisinopril-hydroCHLOROthiazi de 20-12.5 MG TABS 05/03/2009 - 06/19/2009 Provider: STEVEN FLORES PA-C Diagnosis: Last Documented On 9 7:05PM By JEREMÍAS MACHUCA ; [facility] Advair Diskus 100-50 MCG/DOSE IN MISC 04/20/2009 - 05/18/2009 Provider: STEVEN L PAGE PA- C Diagnosis: BRONCHITIS NOS one puff twice a day Last Documented On 04/20/2009 9:43AM By STEVEN FLORES PA-C ; [facility] predniSONE 20 MG OR TABS 04/20/2009 - 05/02/2009 Provi blu: STEVEN FLORES PA-C Diagnosis: BRONCHITIS NOS 3 x 3 d, 2 x 3d, 1x3d, 1/2 x 3d then d/c Last Documented On 04/20/2009 9:43AM By STEVEN FLORES PA-C ; [facility] Tussionex Pennkinetic ER 10-8 MG/5ML OR LQCR 04/20/2009 - 05/20/2009 Provider: STEVEN Banegas Diagnosis: BRONCHITIS NOS one tsp twice a day PRN Last Documented On 04/20/2009 9:43AM By STEVEN FLORES PA-C ; [facility] Proventil HFA 108 (90 Base) MCG/ACT IN AERS 04/10/2009 - 05/10/2009 Provider: STEVEN [place] Diagnosis: ACUTE BRONCHITIS 2 puffs every 4-6 hours PRN Last Documented On 04/10/2009 11:51AM By STEVEN FLORES PA-C ; [facility] Tessalon Perles 100 MG OR CAPS 04/10/2009 - 05/10/2009 Provider: STEVEN Banegas Diagnosis: ACUTE BRONCHITIS 1-2 tabs tid PRN Last Documented On 04/10/2009 11:51AM By STEVEN FLORES PA-C ; [facility] Zithromax Z-Kash 250 MG OR TABS 04/10/2009 - 04/15/2009 Provider: STEVEN Banegas Diagnosis: ACUTE BRONCHITIS as directed Last Documented On 04/10/2009 11:51AM By STEVEN FLORES PA-C ; [facility] Aciphex 20 MG OR TBEC 03/06/2009 - 06/05/2009 Provider : STEVEN FLORES PA-C Diagnosis: Last Documented On 06/05/2009 2:36PM By STEVEN FLORES PA-C ; [facility] Simvastatin 20 MG OR TABS 12/30/2008 - 06/28/2009 Prov ider: Diagnosis: Last Documented On 02/09/2009 2:46PM By RACQUEL JIMENEZ ; [facility] Medications Administered Includes: Administered Medications in patient's chart No Administered Medications Recorded Results Includes: Results from 02/08/2024 through 02/07/2025 No Results Recorded For Specified Dates History of Present Illness History of Present Illness not supported for this document type No History of Present Illness Recorded Social History Description Last Updated Tobacco non-user 06/14/2022 Last Documented On 2 1:35PM ; [facility] Personal history plans to retire 10/05 0 05/27/2017 Last Documented On 7 9:43AM ; [facility] Alcohol use: 2 drinks or less per day RA RELY 05/27/2017 Last Documented On 7 9:43AM ; [facility] Education history 05/27/2017 Last Documented On 7 9:43AM ; [facility] In monogamous relationship 05/27/2017 Last Documented On 7 9:43AM ; [facility] Marital history 05/27/2017 Last Documented On 7 9:43AM ; [facility] Non-smoker 05/27/2017 Last Documented On 7 9:43AM ; [facility] Sexually active 05/27/2017 Last Documented On 7 9:43AM ; [facility] Smoking status : Never smoker 05/27/2017 Last Documented On 7 9:43AM ; [facility] Social history unchanged 05/27/2017 Last Documented On 7 9:43AM ; [facility] Currently 05/02/2016 Last Documented On 6 3:14PM ; [facility] Educational level 05/02/2016 Last Documented On 6 3:14PM ; [facility] Not using alcohol 05/02/2016 Last Documented On 6 3:14PM ; [facility] Procedures and Surgical History Surgical History Last Updated Surgical / procedural histor y SINUS SURGERY 11/02 ~THYROIDECTOMY 08/2015 benign nodules 05/02/2016 Last Documented On 6 3:14PM ; [facility] Surgical history unchanged 04/13/2015 Last Documented On 5 8:37AM ; [facility] History of total abdominal hysterectomy 04/12/2014 Last Documented On 4 8:44AM ; [facility] History of hysterectomy 06/15/19962012 Last Documented On 3 1:38PM ; [facility] Bilateral salpingo-oophorectomy 03/11/20 12 Last Documented On 2 10:59AM ; [facility] Breast Biopsy 03/07/2011 Last Documented On 1 10:57AM ; [facility] Stent 01/24/2010 Last Documented On 0 10:41PM ; [facility] History of cholecystectomy 01/24/2010 Last Documented On 0 10:41PM ; [facility] Medical History Includes: Medical History in patient's chart Description Last Updated Last mammogram date: 08/201605/27/2017 Last Documented On 7 9:43AM ; [facility] PRIMARY CARE PROVIDER : Dr. Cheryl Shukla ~ DR. LISA OJY ~DR. VALERIO BREAST SPECIALIST 04/13/2015 Last Documented On 5 8:37AM ; [facility] A colonoscopy was performed 09/26/2009 Varinder BOWLES 201304/13/2015 Last Documented On 5 8:37AM ; [facility] History of a DEXA of the lateral lumbar spine was performed 06/11/2013 04/13/2015 Last Documented On 5 8:37AM ; [facility] History of Pap smear done 03/11/201203/21 Last Documented On 5 8:37AM ; [facility] History of screening mammogram was perfo rmed 05/06/2014 04/13/2015 Last Documented On 5 8:37AM ; [facility] GERD ~hyperilpidemia ~LISA/BS O DUB ENDOMETRIOSIS ~2004- Bladder ~ ~urge incont. ~status post anterior repair 04/12/2014 Last Documented On 4 8:44AM ; [facility] No recent change in medical history 03/21 Last Documented On 4 8:44AM ; [facility] Result: normal 04/12/2014 Last Documented On 4 8:44AM ; [facility] Result: normal 04/12/2014 Last Documented On 4 8:44AM ; [facility] Status post hysterectomy DUB 04/05/2013 Last Documented On 3 1:38PM ; [facility] History of menopause 04/05/2013 Last Documented On 3 1:38PM ; [facility] LMP: 06/15/1996 04/05/2013 Last Documented On 3 1:38PM ; [facility] Last pap smear date 03/11/2012 03/11/2012 Last Documented On 2 10:59AM ; [facility] History of benign essential hypertension 03/07/2011 Last Documented On 1 10:57AM ; [facility] Taking OTC medications including Mucinex 08/20/2010 Last Documented On 0 5:52PM ; [facility] History of chronic reflux esophagitis Last Documented On 0 2:47PM ; [facility] History of thyroid disorder THYROID NODU LES 01/25/2010 Last Documented On 0 2:47PM ; [facility] Para 2 01/25/2010 Last Documented On 0 2:47PM ; [facility] Vaginal delivery 01/25/2010 Last Documented On 0 2:47PM ; [facility] 2 living children 01/15/2010 Last Documented On 0 10:41PM ; [facility] A mammogram was performed 07/30/0701/15 Last Documented On 0 10:41PM ; [facility] 2 01/15/2010 Last Documented On 0 10:41PM ; [facility] Hypertension 01/15/2010 Last Documented On 0 10:41PM ; [facility] History of essential hypertension 2008 Last Documented On 9 9:49PM ; [facility] Taking medication - prescrip tion Patient currently taking Levaquin. Finished Zithromax. Tussionex helping. Proventil inhaler seems to help for a little while 04/20/2009 Last Documented On 9 9:51AM ; [facility] Taking OTC pain medication /fever. Using Tylenol 04/10/2009 Last Documented On 9 11:51AM ; [facility] History of hypertension 02/09/2009 Last Documented On 9 2:50PM ; [facility] Surgery GALBLADDER 1978 ~BLADDER 02/20 Last Documented On 9 2:50PM ; [facility] Family History Includes: Family History in patient's chart Description Last Updated Maternal history of diabetes mellitus Mo ther 05/02/2016 Last Documented On 6 3:14PM ; [facility] Family history of diabetes mellitus Moth er 04/13/2015 Last Documented On 5 8:37AM ; [facility] Family history of hypercholesterolemia F ather 04/13/2015 Last Documented On 5 8:37AM ; [facility] Family history of hypertension Patient, Father 04/13/2015 Last Documented On 5 8:37AM ; [facility] Family history unchanged 04/13/2015 Last Documented On 5 8:37AM ; [facility] Spouse name: DARLING 03/07/2011 Last Documented On 1 10:57AM ; [facility] First child named 01/25/2010 Last Documented On 0 2:47PM ; [facility] No family history of malignant female br east neoplasm 01/25/2010 Last Documented On 0 2:47PM ; [facility] No family history of malignant neoplasm of the large intestine 01/25/2010 Last Documented On 0 2:47PM ; [facility] No family history of malignant neoplasm of the ovary 01/25/2010 Last Documented On 0 2:47PM ; [facility] No family history of uterine cancer 05/2010 Last Documented On 0 2:47PM ; [facility] Second child named 01/25/2010 Last Documented On 0 2:47PM ; [facility] Family history of Diabetes (m) 0 Last Documented On 0 10:41PM ; [facility] Family medical history of high blood pre ssure &hyperlipidemia(F) 01/15/2010 Last Documented On 0 10:41PM ; [facility] Brother BLOCKED ARTERIES 2008 Last Documented On 9 2:50PM ; [facility] Brother HAS MS 02/09/2009 Last Documented On 9 2:50PM ; [facility] Father 02/09/2009 Last Documented On 9 2:50PM ; [facility] Heart disease 02/09/2009 Last Documented On 9 2:50PM ; [facility] Mother 02/09/2009 Last Documented On 9 2:50PM ; [facility] Review of Systems Review of Systems not [...] Documented On 1 10:39AM ; [facility] Influenza (Quadrivalent)36 mo.& older PF 0.5ml (SD) 1 07/07/2009 Right Arm Complete (Administered) [facility] Last Documented On 9 8:53AM ; [facility] Influenza (Quadrivalent)36 mo.& older PF 0.5ml (SD) 2 09/19/2010 Right Arm Complete (Administered) [facility] Last Documented On 0 12:20PM ; [facility] Td 1 Complete (Reported) Lo ent Last Documented On 1 10:39AM ; [facility] Zostavax 1 Complete (Reported) Pat ient Last Documented On 2 10:48AM ; [facility] Allergies Includes: Active, inactive, and resolved Allergies Substance Type Reaction Onset Date Resolved Date Statu s Sulfa Antibiotics Allergy 02/09/2009 A ctive Last Documented On 3 3:29PM ; [facility] Fish Oil Allergy THROAT, MOUTH AND EARS ITCH 04/12/2014 Active Last Documented On 3 3:29PM ; [facility] CeleBREX Allergy 02/09/2009 Active Last Documented On 3 3:29PM ; [facility] Insurance Includes: Active Insurance Policies Plan Name Member ID Group # Subscriber Relationship Effect grant Dates 1 - [facility]/MEDICARE ADV/[employer] [id number] lieberman Clinical Notes Includes: Signed Clinical Notes starting from 11/08/2022 No Clinical Notes Recorded
--- OUTSIDE RECORDS SUMMARY | 2025-02-07 00:44 | XMS_ITS | Clinical Summary ---
Author Organization [facility] Address [address] [place] [address] Phone Care Team Providers Care Outside Sales Associate Name Role Phone MILENA QUIROGA MD Unavailable [phone] MABEL MULLINS Primary Care Provider [phone] Reason for Visit and Chief Complaint visit for: Right Knee Pain - The Chief Complaint is: PRESENTS FOR GELSYN-3 INJ RT KNEE #1 OF3 Problems Includes: Problems addressed during this encounter and other active Problems Current Visit Onset Date Resolved Date Provider Conditio n Status Osteoarthritis Localized Primary Knee Right 09/27/2022 SHAQ Banegas Active Last Documented On 2 10:05AM ; [facility] History of Prior Surgery: Stent 04/12/2014 LEAH BRUNO RN JN Active Last Documented On 4 8:44AM ; [facility] Note: Unchanged History of Hysterectomy 04/05/2013 MAY Landeros RN JN Active Last Documented On 3 1:24PM ; [facility] Note: Unchanged Past Visits Onset Date Resolved Date Provider Condition Status Joint Pain in the Right Knee on the Inner Side 06/14/2022 SHAQ Banegas Active Last Documented On 2 1:24PM ; [facility] Anemia 04/16/2015 MAY BRUNO RN JN [place] Active Last Documented On 5 1:16PM ; [facility] Colonic Diverticulosis 04/16/2015 MAY BOSTON Active Last Documented On 5 1:15PM ; [facility] URGE INCONTINENCE 03/07/2011 CHRISSIE ROSADO M.D. Active Last Documented On 1 10:51AM ; [facility] Breast Fibroadenosis Chronic 01/25/2010 MAY BRUNO RN WHN P BC Active Last Documented On 04/13/2015 8:29AM ; [facility] Note: pt s/p removal and all mammogram p erformed by Dr. Clifford at [facility] CYST OF THYROID 01/25/2010 CHRISSIE RODRIGUEZ M.D. Active Last Documented On 01/25/2010 1:41PM ; [facility] Note: pt to see ent and profile trimmer Esophageal Reflux 01/15/2010 DARSHANA TORRES MD Active Last Documented On 0 10:38PM ; [facility] Hyperlipidemia 02/09/2009 DARSHANA TORRES MD Active Last Documented On 0 10:38PM ; [facility] Essential Hypertension Benign 02/09/2009 DARSHANA TORRES MD Active Last Documented On 0 10:38PM ; [facility] Plan of Treatment I provided her with the right knee Gelsyn injection. This was the first injection in the series. She will follow up next week for the second injection in the series. - Last Documented On 11/07/2022 3:41PM ; [facility] Instructions to patient Intervention and counseling on cessation of tobacco use Last Documented On 3 3:29PM ; [facility] Assessments Includes: Assessments from this encounter Findings - [M17.11 - Unilateral primary osteoarthritis, right knee] Localized primary osteoarthritis of right knee - Last Documented On 11/07/2022 3:41PM ; [facility] Instructions Includes: Instructions from this encounter Instructions to patient Intervention and counseling on cessation of tobacco use Last Documented On 3 3:29PM ; [facility] Medical Equipment - Implanted Devices Includes: [...] 1:28PM By Ira ALVA ; [facility] hydrALAZINE HCl 100 MG Oral Tablet 06/14/2022 Provid er: Diagnosis: Last Documented On 06/14/2022 1:15PM By MARCY BHAT LPN ; [facility] Gabapentin 100 MG Oral Capsule 06/14/2022 Provider: Diagnosis: Last Documented On 06/14/2022 1:15PM By MARCY BHAT LPN ; [facility] Valsartan-hydroCHLOROthiazide 320-25 MG Oral Tablet Provider: Diagnosis: Last Documented On 06/14/2022 1:12PM By MARCY BHAT LPN ; [facility] NexIUM 40 MG Oral Capsule Delayed Release 06/14/2022 Provider: Diagnosis: Last Documented On 06/14/2022 1:12PM By MARCY BHAT LPN ; [facility] Furosemide 40 MG Oral Tablet 06/14/2022 Provider: Diagnosis: Last Documented On 06/14/2022 1:11PM By MARCY BHAT LPN ; [facility] Amiodarone HCl 200 MG Oral Tablet 06/14/2022 Provide r: Diagnosis: Last Documented On 06/14/2022 1:10PM By MARCY BHAT LPN ; [facility] Xarelto 20 MG Oral Tablet 06/14/2022 Provider: Diagnosis: Last Documented On 06/14/2022 1:10PM By MARCY BHAT LPN ; [facility] Calcium 600 MG Tablet 05/02/2016 Provider: Diagnosis: Last Documented On 05/02/2016 2:58PM By CLAUDIA REYES MA ; [facility] Multi Vitamin Daily Tablet 05/02/2016 Provider: Diagnosis: Last Documented On 05/02/2016 2:58PM By CLAUDIA REYES MA ; [facility] Irbesartan 300 MG Tablet 05/02/2016 Provider: Diagnosis: Last Documented On 05/02/2016 2:58PM By CLAUDIA REYES MA ; [facility] Metoprolol Succinate ER 25 MG Tablet Extended Re lease 24 Hour 05/02/2016 Provider: Diagnosis: Last Documented On 05/02/2016 2:57PM By CLAUDIA REYES MA ; [facility] Levothyroxine Sodium 175 MCG Tablet 05/02/2016 Provi blu: Diagnosis: Last Documented On 05/02/2016 2:57PM By CLAUDIA REYES MA ; [facility] oxyBUTYnin Chloride 5 MG OR TABS 04/12/2014 Provider : Diagnosis: Last Documented On 04/12/2014 8:27AM By AIRAM SARAVIA ; [facility] Livalo 1 MG OR TABS 04/12/2014 Provider: Diagnosis: Last Documented On 04/12/2014 8:27AM By AIRAM SARAVIA ; [facility] Past Medications on file Terconazole 0.8% VA CREA 04/05/2013 - 04/14/2013 Provider: MAY BRUNO RN [facility] Diagnosis: CANDIDAL VULVOVA GINITIS 1 PAULA IN VAGINA EVERY NIGHT X 3 APPLY BID TO EXTERNAL AREA Last Documented On 3 1:26PM By MAY BRUNO [facility] ; [facility] Diflucan 150 MG OR TABS 03/13/2012 - 03/14/2012 Provider: CHRISSIE ROSADO M.D. Diagnosis: CANDIDAL VULVOVA GINITIS 1 po x 1 day Last Documented On 2 12:45PM By DR. CHRISSIE ROSADO ; [facility] oxyBUTYnin Chloride 5 MG OR TABS 07/01/2011 - 12/28/2011 Provider: DARSHANA KAPOOR MD Diagnosis: Last Documented On 1 12:11AM By DARSHANA TORRES MD ; [facility] Aciphex 20 MG OR TBEC 05/27/2011 - 08/25/2011 Provider : MERY KAUFFMAN PA-C Diagnosis: Last Documented On 1 4:37PM By MERY KAUFFMAN PA-C ; [facility] Lisinopril-hydroCHLOROthiazi de 20-12.5 MG TABS 04/29/2011 - 08/27/2011 Provider: STEVEN FLORES PA-C Diagnosis: 1 qd #30 Last Documented On 04/29/2011 12:46PM By STEVEN FLORES PA-C ; [facility] Carbinoxamine Maleate 4 MG OR TABS 03/29/2011 - 05/28/2011 Provider: DARSHANA TORRES MD Diagnosis: ALLERGIC RHINITI S NOS Last Documented On 03/29/2011 1:37PM By Rosy ALVA ; [facility] Oxytrol 3.9 MG/24HR TD PTTW 03/07/2011 - 05/06/2011 Provider: CHRISSIE MILLER ON Ubaldo Diagnosis: URGE INCONTINENC E change patch q 72 hrs Last Documented On 1 10:56AM By DR. CHRISSIE ROSADO ; [facility] NexIUM 40 MG OR CPDR 03/01/2011 - 03/31/2011 Provider: STEVEN FLORES PA-C Diagnosis: Last Documented On 03/01/2011 9:52AM By STEVEN FLORES PA-C ; [facility] Flonase 50 MCG/ACT NA SUSP 11/15/2010 - 12/15/2010 Provider: JULES Bangeas Diagnosis: ACUTE SINUSITIS NOS 2 sprays each nostril qd Last Documented On 11/15/2010 3:45PM By JULES MCCARTHY PA-C ; [facility] Zithromax Z-Kash 250 MG OR TABS 11/15/2010 - 11/20/2010 Provider: JULES Banegas Diagnosis: ACUTE SINUSITIS NOS Last Documented On 11/15/2010 3:12PM By JULES MCCARTHY PA-C ; [facility] Cefprozil 500 MG OR TABS 10/25/2010 - 11/04/2010 Provi blu: STEVEN FLORES PA-C Diagnosis: Last Documented On 10/25/2010 10:11AM By STEVEN FLORES PA-C ; [facility] Augmentin 875-125 MG OR TABS 09/11/2010 - 09/21/2010 P rovider: STEVEN FLORES PA-C Diagnosis: Last Documented On 09/11/2010 11:00AM By STEVEN FLORES PA-C ; [facility] Valtrex 1 GM OR TABS 08/20/2010 - 08/21/2010 Provider: STEVEN FLORES PA-C Diagnosis: HERPES SIMPLEX N OS 2 tabs po now, repeat in 12 hours Last Documented On 08/20/2010 5:51PM By STEVEN FLORES PA-C ; [facility] Levaquin 750 MG OR TABS 08/20/2010 - 08/25/2010 Provid er: STEVEN FLORES PA-C Diagnosis: BRONCHITIS NOS Last Documented On 08/20/2010 5:51PM By STEVEN FLORES PA-C ; [facility] Tussionex Pennkinetic ER 10-8 MG/5ML OR LQCR 08/20/2010 - 09/19/2010 Provider: STEVEN Banegas Diagnosis: BRONCHITIS NOS one tsp po BID PRN Last Documented On 08/20/2010 5:51PM By STEVEN FLORES PA-C ; [facility] Simvastatin 20 MG OR TABS 06/27/2010 - 12/24/2010 Prov ider: STEVEN FLORES PA-C Diagnosis: Last Documented On 06/27/2010 12:04PM By STEVEN FLORES PA-C ; [facility] Flonase 50 MCG/ACT NA SUSP 07/21/2009 - 08/20/2009 Pro vider: TANNER MYERS PA-C Diagnosis: 2 sprays q nare qd Last Documented On 07/21/2009 1:27PM By TANNER MYERS ; [facility] [place] 180 MG OR TABS 07/21/2009 - 08/20/2009 Provide r: TANNER MYERS PA-C Diagnosis: Last Documented On 07/21/2009 1:27PM By TANNER MYERS ; [facility] Protonix 40 MG OR TBEC 07/07/2009 - 07/17/2009 Provider: DARSHANA KAPOOR MD Diagnosis: REFLUX ESOPHAGIT IS Last Documented On 9 9:04AM By DARSHANA TORRES MD ; [facility] Medrol (Kash) 4 MG OR TABS 07/07/2009 - 07/13/2009 Prov ider: DARSHANA TORRES MD Diagnosis: COUGH as directed Last Documented On 9 9:04AM By DARSHANA TORRES MD ; [facility] Lisinopril-hydroCHLOROthiazi de 20-12.5 MG TABS 07/07/2009 - 08/06/2009 Provider: DARSHANA HEATON M.D. Diagnosis: Last Documented On 07/07/2009 8:34AM By Rosy ALVA ; [facility] Xyzal 5 MG OR TABS 06/19/2009 - 2009 Provider: STEVEN FLORES PA-C Diagnosis: DRUG ALLERGY NEC Last Documented On 06/19/2009 9:49PM By STEVEN FLORES PA-C ; [facility] [place] 180 MG OR TABS 06/09/2009 - 12/06/2009 Provide r: STEVEN FLORES PA-C Diagnosis: Last Documented On 06/09/2009 12:56PM By STEVEN FLORES PA-C ; [facility] oxyBUTYnin Chloride 5 MG OR TABS 06/03/2009 - 07/03/20 Provider: Diagnosis: Last Documented On 07/05/2009 11:25AM By Jonny Lamb ; [facility] Advair Diskus 250-50 MCG[facility] 05/13/2009 - 06/10/2009 Provider: TANNER GRIFFITH PA-C Diagnosis: COUGH Last Documented On 05/13/2009 9:31AM By TANNER MYERS ; [facility] Ventolin HFA 108 (90 Base) MCG/ACT IN [facility] 05/13/2009 - 06/12/2009 Provider: TANNER GRIFFITH PA-C Diagnosis: COUGH 2 puffs q 4-6 hours prn. Last Documented On 05/13/2009 9:31AM By TANNER MYERS ; [facility] Singulair 10 MG OR TABS 05/05/2009 - 05/19/2009 Provider: STEVEN Banegas Diagnosis: PNEUMONIA, ORGAN ISM NOS Last Documented On 05/05/2009 4:06PM By STEVEN FLORES PA-C ; [facility] Advair Diskus 100-50 MCG/DOSE IN [facility] 04/20/2009 - 05/18/2009 Provider: STEVEN Banegas Diagnosis: BRONCHITIS NOS one puff twice a day Last Documented On 04/20/2009 9:43AM By STEVEN FLORES PA-C ; [facility] predniSONE 20 MG OR TABS 04/20/2009 - 05/02/2009 Provi blu: STEVEN FLORES PA-C Diagnosis: BRONCHITIS NOS 3 x 3 d, 2 x 3d, 1x3d, 1/2 x 3d then d/c Last Documented On 04/20/2009 9:43AM By STEVEN FLORES PA-C ; [facility] Tussionex Pennkinetic ER 10-8 MG/5ML OR LQCR 04/20/2009 - 05/20/2009 Provider: STEVEN Banegas Diagnosis: BRONCHITIS NOS one tsp twice a day PRN Last Documented On 04/20/2009 9:43AM By STEVEN FLORES PA-C ; [facility] Proventil HFA 108 (90 Base) MCG/ACT IN [facility] 04/10/2009 - 05/10/2009 Provider: STEVEN [place] Diagnosis: ACUTE BRONCHITIS 2 puffs every 4-6 hours PRN Last Documented On 04/10/2009 11:51AM By STEVEN FLORES PA-C ; [facility] Tessalon Perles 100 MG OR CAPS 04/10/2009 - 05/10/2009 Provider: STEVEN Banegas Diagnosis: ACUTE BRONCHITIS 1-2 tabs tid PRN Last Documented On 04/10/2009 11:51AM By STEVEN FLORES PA-C ; [facility] Zithromax Z-Kash 250 MG OR TABS 04/10/2009 - 04/15/2009 Provider: STEVEN Banegas Diagnosis: ACUTE BRONCHITIS as directed Last Documented On 04/10/2009 11:51AM By STEVEN FLORES PA-C ; [facility] Simvastatin 20 MG OR TABS 12/30/2008 - 06/28/2009 Prov ider: Diagnosis: Last Documented On 02/09/2009 2:46PM By RACQUEL JIMENEZ ; [facility] Medications Administered Includes: Administered Medications from this encounter No Administered Medications Recorded Vital Signs Includes: Vital Signs from this encounter Vital Name 11/07/2022 03:29P Blood Pressure Sitting (mmHg) 116/72 Height (in) 66.5 Last Documented: On 11/07/2022 3:29PM ; [facility] Results Includes: Results discussed during this [...] 06/14/2022 Last Documented On 3 3:29PM ; [facility] Personal history plans to retire 10/05 0 05/27/2017 Last Documented On 3 3:29PM ; [facility] Alcohol use: 2 drinks or less per day RA RELY 05/27/2017 Last Documented On 3 3:29PM ; [facility] Education history 05/27/2017 Last Documented On 3 3:29PM ; [facility] In monogamous relationship 05/27/2017 Last Documented On 3 3:29PM ; [facility] Marital history 05/27/2017 Last Documented On 3 3:29PM ; [facility] Non-smoker 05/27/2017 Last Documented On 3 3:29PM ; [facility] Sexually active 05/27/2017 Last Documented On 3 3:29PM ; [facility] Smoking status : Never smoker 05/27/2017 Last Documented On 3 3:29PM ; [facility] Social history unchanged 05/27/2017 Last Documented On 3 3:29PM ; [facility] Currently 05/02/2016 Last Documented On 3 3:29PM ; [facility] Educational level 05/02/2016 Last Documented On 3 3:29PM ; [facility] Not using alcohol 05/02/2016 Last Documented On 3 3:29PM ; [facility] Procedures and Surgical History Includes: Procedures from this encounter Procedures Code Diagnosis Performing Provider Service L ocation Service Date intervention and counseling on cessation of tobacco use 4000F Last Documented On 3 3:29PM ; [facility] use of tobacco assessment performed 1000F Last Documented On 3 3:29PM ; [facility] patient screened for future fall risk: documentation of any fall with injury in past year 1100F Last Documented On 3 3:29PM ; [facility] review of medications documented 1160F Last Documented On 3 3:40PM ; [facility] encouragement to exercise Last Documented On 3 3:40PM ; [facility] Informed consent obtained Ri s and [...] obtained Last Documented On 3 3:37PM ; [facility] Sodium Hyaluronate, 5 mg for intra-articular injection The right knee was prepped in aseptic technique. I injected Gelsyn viscosupplementation into the right knee using a 22 gauge 1-10/21 needle. Patient tolerated the procedure well and post procedure showed no signs of complications. Patient will be seen for the continuation of the series [id number] Last Documented On 3 3:37PM ; [facility] Surgical History Last Updated Surgical / procedural histor y SINUS SURGERY 11/02 ~THYROIDECTOMY 08/2015 benign nodules 05/02/2016 Last Documented On 3 3:29PM ; [facility] Surgical history unchanged 04/13/2015 Last Documented On 3 3:29PM ; [facility] History of total abdominal hysterectomy 04/12/2014 Last Documented On 3 3:29PM ; [facility] History of hysterectomy 06/15/19962012 Last Documented On 3 3:29PM ; [facility] Bilateral salpingo-oophorectomy 03/11/20 Last Documented On 3 3:29PM ; [facility] Breast Biopsy 03/07/2011 Last Documented On 3 3:29PM ; [facility] Stent 01/24/2010 Last Documented On 3 3:29PM ; [facility] History of cholecystectomy 01/24/2010 Last Documented On 3 3:29PM ; [facility] Medical History Includes: Medical History addressed during this encounter Description Last Updated Last mammogram date: 08/201605/27/2017 Last Documented On 3 3:29PM ; [facility] PRIMARY CARE PROVIDER : Dr. Cheryl Shukla ~ DR. LISA JOY ~DR. VALERIO BREAST SPECIALIST 04/13/2015 Last Documented On 3 3:29PM ; [facility] A colonoscopy was performed 09/26/2009 Varinder BOWLES 201304/13/2015 Last Documented On 3 3:29PM ; [facility] History of a DEXA of the lateral lumbar spine was performed 06/11/2013 04/13/2015 Last Documented On 3 3:29PM ; [facility] History of Pap smear done 03/11/201203/21 Last Documented On 3 3:29PM ; [facility] History of screening mammogram was perfo rmed 05/06/2014 04/13/2015 Last Documented On 3 3:29PM ; [facility] GERD ~hyperilpidemia ~LISA/BS O DUB ENDOMETRIOSIS ~2004- Bladder ~ ~urge incont. ~status post anterior repair 04/12/2014 Last Documented On 3 3:29PM ; [facility] No recent change in medical history 03/21 Last Documented On 3 3:29PM ; [facility] Result: normal 04/12/2014 Last Documented On 3 3:29PM ; [facility] Result: normal 04/12/2014 Last Documented On 3 3:29PM ; [facility] Status post hysterectomy DUB 04/05/2013 Last Documented On 3 3:29PM ; [facility] History of menopause 04/05/2013 Last Documented On 3 3:29PM ; [facility] LMP: 06/15/1996 04/05/2013 Last Documented On 3 3:29PM ; [facility] Last pap smear date 03/11/2012 03/11/2012 Last Documented On 3 3:29PM ; [facility] History of benign essential hypertension 03/07/2011 Last Documented On 3 3:29PM ; [facility] Taking OTC medications including Mucinex 08/20/2010 Last Documented On 3 3:29PM ; [facility] History of chronic reflux esophagitis Last Documented On 3 3:29PM ; [facility] History of thyroid disorder THYROID NODU LES 01/25/2010 Last Documented On 3 3:29PM ; [facility] Para 2 01/25/2010 Last Documented On 3 3:29PM ; [facility] Vaginal delivery 01/25/2010 Last Documented On 3 3:29PM ; [facility] 2 living children 01/15/2010 Last Documented On 3 3:29PM ; [facility] A mammogram was performed 07/30/0701/15 Last Documented On 3 3:29PM ; [facility] 2 01/15/2010 Last Documented On 3 3:29PM ; [facility] Hypertension 01/15/2010 Last Documented On 3 3:29PM ; [facility] History of essential hypertension 2008 Last Documented On 3 3:29PM ; [facility] Taking medication - prescrip tion Patient currently taking Levaquin. Finished Zithromax. Tussionex helping. Proventil inhaler seems to help for a little while 04/20/2009 Last Documented On 3 3:29PM ; [facility] Taking OTC pain medication /fever. Using Tylenol 04/10/2009 Last Documented On 3 3:29PM ; [facility] History of hypertension 02/09/2009 Last Documented On 3 3:29PM ; [facility] Surgery GALBLADDER 1978 ~BLADDER 02/20 Last Documented On 3 3:29PM ; [facility] Family History Includes: Family History addressed during this encounter Description Last Updated Maternal history of diabetes mellitus Mo ther 05/02/2016 Last Documented On 3 3:29PM ; [facility] Family history of diabetes mellitus Moth er 04/13/2015 Last Documented On 3 3:29PM ; [facility] Family history of hypercholesterolemia F ather 04/13/2015 Last Documented On 3 3:29PM ; [facility] Family history of hypertension Patient, Father 04/13/2015 Last Documented On 3 3:29PM ; [facility] Family history unchanged 04/13/2015 Last Documented On 3 3:29PM ; [facility] Spouse name: DARLING 03/07/2011 Last Documented On 3 3:29PM ; [facility] First child named 01/25/2010 Last Documented On 3 3:29PM ; [facility] No family history of malignant female br east neoplasm 01/25/2010 Last Documented On 3 3:29PM ; [facility] No family history of malignant neoplasm of the large intestine 01/25/2010 Last Documented On 3 3:29PM ; [facility] No family history of malignant neoplasm of the ovary 01/25/2010 Last Documented On 3 3:29PM ; [facility] No family history of uterine cancer 05/2010 Last Documented On 3 3:29PM ; [facility] Second child named 01/25/2010 Last Documented On 3 3:29PM ; [facility] Family history of Diabetes (m) 0 Last Documented On 3 3:29PM ; [facility] Family medical history of high blood pre ssure &hyperlipidemia(F) 01/15/2010 Last Documented On 3 3:29PM ; [facility] Brother BLOCKED ARTERIES 2008 Last Documented On 3 3:29PM ; [facility] Brother HAS MS 02/09/2009 Last Documented On 3 3:29PM ; [facility] Father 02/09/2009 Last Documented On 3 3:29PM ; [facility] Heart disease 02/09/2009 Last Documented On 3 3:29PM ; [facility] Mother 02/09/2009 Last Documented On 3 3:29PM ; [facility] Review of Systems Includes: Review of [...] ctive Last Documented On 3 3:29PM ; [facility] Fish Oil Allergy THROAT, MOUTH AND EARS ITCH 04/12/2014 Active Last Documented On 3 3:29PM ; [facility] CeleBREX Allergy 02/09/2009 Active Last Documented On 3 3:29PM ; [facility] Encounters Encounter Provider Location Date Check-In Time Check-Out Time Diagnosis FOLLOW UP SHAQ TOMPKINS C [facility] 11/07/19 23 3:24PM 3:33PM Osteoarthritis Localized Primary Knee Right Insurance Includes: Active Insurance Policies Plan Name Member ID Group # Subscriber Relationship Effect grant Dates - [facility]/MEDICARE ADV/[employer] [id number] BRIGIDA lieberman Clinical Notes Includes: Clinical Notes from this encounter No Clinical Notes Recorded
--- OUTSIDE RECORDS SUMMARY | 2025-02-07 00:44 | XMS_ITS | Clinical Summary ---
Author Organization [facility] Address [address] [place] [id number] Care Team Providers Care Elementary Educator Name Role Phone Jh Tena MD Unavailable [phone] Carmen Hurst MD Unavailable Reji Clarke DO Unavailable [phone] Mabel Mullins MD Primary Care Provider Vaughn Melendez MD Unavailable [phone] Frederick Burton DMD Unavailable [phone] Doris Brenner DO Unavailable [phone] Obdulio Kumar MD Unavailable Catracho Fernandez MD Unavailable [phone] El Vo MD Unavailable [phone] Pati Yang NP Unavailable [phone] Allergies Active Allergy Reactions Criticality Noted Date [...] (See comments) Medium Reaction: throat itching, swelling, Faclvtb-Yxr-Rrk Reductase Inhibitors Muscle pain Medium 06/18/2019 Sulfa [...] 1 tablet/chew tab by mouth daily Active amiodarone (PACERONE) 200 mg tabletIndications :Cardioversion of Atrial Fibrillation,Prev ention of Recurrent Atrial Fibrillation Take 0.5 tablets (100 mg total) by mouth daily 30 tablet 2 Active apixaban (ELIQUIS) 5 mg tabletIndications :atrial fibrillation Take 1 tablet (5 mg total) by mouth 2 (two) times a day 60 tablet 11 Active hydrALAZINE (APRESOLINE) 100 mg tablet TAKE [...] orthopedics. Assessment & Plan (12/03/2023 12:11 PM MACHINE STACKER): After they removed fluid from her right knee, there was significant pain relief and it has not recurred. She takes Tylenol as needed. She uses diclofenac gel. She also has tramadol which she rarely uses because it makes her feel woozy. Assessment & Plan (11/08/2023 11:53 AM MACHINE STACKER): She developed pain and swelling in her [...] therapy. Assessment & Plan (10/29/2023 3:02 PM MACHINE STACKER): We ordered a PTH. Closed fracture of proximal end of left humerus with routine healing 04/24/2023 Overview (05/12/2023): Seeing Dr. Fernandez Assessment & Plan (09/12/2023 2:55 PM MACHINE STACKER): She requested a refill of tramadol to [...] weeks ago. She saw Dr. Fernandez at [facility]. Her arm is in a sling [...] Kumar. Assessment & Plan (09/04/2023 11:41 AM MACHINE STACKER): She is on Nexium twice a day. [...] Left hip pain 01/02/2023 Overview (03/01/2023): Saw Salma Daniel ANP, imaging negative except for moderate facet hypertrophy [...] 08/19/2022 Assessment & Plan (10/29/2023 3:06 PM MACHINE STACKER): Potassium was slightly low in the ER recently. We requested follow-up testing to see if replacement needs to be increased. Assessment & Plan (08/26/2022 1:02 PM MACHINE STACKER): Potassium is a little low, probably due to the effects of combined furosemide and hydrochlorothiazide. We will put her on a little potassium supplement. She already takes a magnesium supplement. Acute pain of right knee 06/07/2022 Assessment & Plan (09/10/2022 4:05 PM MACHINE STACKER): She developed acute pain in her right [...] then went to an orthopedic surgeon in [place] who ordered an MRI. We never got [...] (08/25/2022): Added automatically from request for surgery [id number], cardiac cath on 01/31/2022, Dr. Tena: 1. [...] diet Assessment & Plan (11/23/2021 3:14 PM MACHINE STACKER): With the onset of vertigo last Friday, [...] weeks. Assessment & Plan (10/29/2020 3:41 PM MACHINE STACKER): About three or four days ago she [...] level. Assessment & Plan (12/28/2020 9:35 AM MACHINE STACKER): Nocturnal leg cramps are improved with gabapentin. Continue same. Assessment & Plan (09/28/2020 11:41 AM MACHINE STACKER): She has had a slight benefit from gabapentin in her nocturnal leg cramps. She can only take 100 mg, otherwise she is excessively sedated. Continue same. Assessment & Plan (08/24/2020 1:07 PM MACHINE STACKER): She has been having cramps in her [...] (05/11/2023): Added automatically from request for surgery [id number], EGD 04/04/2020: Mild esophageal candidiasis, diffuse gastropathy with some retained food, small HH, Dr. Melendez, [facility]. Follow up endoscopy 04/03/2023, mild reactive gastropathy, [...] EGD. Assessment & Plan (12/28/2020 9:38 AM MACHINE STACKER): She is on Nexium for heartburn symptoms. It does not control her abdominal bloating which could have other causes. Assessment & Plan (10/29/2020 3:42 PM MACHINE STACKER): This could be causing or contributing to [...] anesthesiologist. Assessment & Plan (12/03/2023 12:10 PM MACHINE STACKER): Her latest sodium is stable or even a little improved. We will continue to monitor periodically. Lab Results Component Value Date GLUCOSE 116 10/29/2023 CALCIUM 9.3 10/29/2023 SODIUM 131 (L) 10/29/2023 POTASSIUM 3.4 10/29/2023 CO2 28 10/29/2023 CHLORIDE 88 (L) 10/29/2023 BUNSER 12 10/29/2023 CREATININE 0.79 10/29/2023 Assessment & Plan (11/08/2023 11:52 AM MACHINE STACKER): Labs done in the ER recently showed [...] 10/15/2023 Assessment & Plan (09/04/2023 11:43 AM MACHINE STACKER): Sodium is stable or even slightly improved [...] 02/26/2023 Assessment & Plan (08/26/2022 1:03 PM MACHINE STACKER): Sodium is little lower than her last [...] hands. Assessment & Plan (12/02/2021 1:59 PM MACHINE STACKER): She has had problems with low-sodium in the past, attributed to a combination of hydrochlorothiazide and furosemide to control swelling in her legs and blood pressure. Systolic blood pressure is mildly elevated today. She got IV fluids in the ER at [place]. We are checking follow-up electrolytes. Consider additional [...] needed. Assessment & Plan (10/12/2020 4:30 PM MACHINE STACKER): Sodium is stable but still low. It [...] today. Assessment & Plan (08/24/2020 1:06 PM MACHINE STACKER): She has a mild to moderate hyponatremia, [...] obstruction. Assessment & Plan (12/28/2020 9:40 AM MACHINE STACKER): For the past year or so, she [...] month. Assessment & Plan (08/26/2022 1:01 PM MACHINE STACKER): She sees Dr. Tena annually. She is [...] doing. Assessment & Plan (12/28/2020 9:37 AM MACHINE STACKER): There is no pitting edema in her legs. Lungs are clear. She seems to have better exercise tolerance, walking on the treadmill. Continue to monitor. Assessment & Plan (09/28/2020 11:43 AM MACHINE STACKER): Diastolic heart failure is probably contributing to fluid retention and hyponatremia. Currently she seems reasonably well controlled. Oxygen saturation is normal and lungs are clear. There is some swelling in her legs but it is not severe. Continue current therapy. Assessment & Plan (08/24/2020 1:05 PM MACHINE STACKER): She has no swelling in her legs. [...] therapy. Assessment & Plan (09/04/2023 11:44 AM MACHINE STACKER): She takes levothyroxine. We are monitoring periodically with labs. Lab Results Component Value Date TSH 1.23 08/28/2023 Assessment & Plan (03/03/2023 1:05 PM CDT): We will check a TSH before her next visit in about six months. Lab Results Component Value Date TSH 0.74 08/19/2022 Assessment & Plan (08/26/2022 1:04 PM MACHINE STACKER): She is on a stable dose of [...] 09/21/2020 Assessment & Plan (12/28/2020 9:34 AM MACHINE STACKER): TSH is normal on current therapy. I do not think this is contributing to her hypothyroidism. Lab Results Component Value Date TSH 1.06 09/21/2020 Assessment & Plan (08/24/2020 1:09 PM MACHINE STACKER): She is on a fairly high replacement [...] a feeling of palpitations. She wore another river rat and turned it in this morning. There [...] level. Assessment & Plan (09/04/2023 11:43 AM MACHINE STACKER): She is on a vitamin-D supplement and [...] hyponatremia. Assessment & Plan (09/10/2022 4:07 PM MACHINE STACKER): We are referring her back to sleep specialist for reassessment of treatment. Assessment & Plan (08/24/2020 1:08 PM MACHINE STACKER): She continues on CPAP. She had some [...] Assessment & Plan (01/23/2018 12:05 PM CDT): [place] sleepiness scale score 14 on 01/23/2018 Referred [...] 04/16/2015 Overview (08/25/2022): Chart entry from [facility] details lacking. Anemia 04/16/2015 Overview (08/25/2022): Mild, intermittent normocytic anemia first noted at [facility] Assessment & Plan (03/14/2023 10:38 PM CDT): [...] morning. Assessment & Plan (09/04/2023 11:40 AM MACHINE STACKER): Symptoms are controlled on Astelin and Flonase [...] months. Assessment & Plan (09/04/2023 11:43 AM MACHINE STACKER): She takes Zetia. She is intolerant of [...] statins. Assessment & Plan (08/26/2022 1:03 PM MACHINE STACKER): She did not tolerate statins, but is [...] months. Assessment & Plan (11/04/2017 12:01 PM MACHINE STACKER): Lipid abnormalities are unchanged. Nutritional counseling was provided. and Pharmacotherapy as ordered. Lipids will be reassessed in 6 months. Chronic fibroadenosis of breast 01/25/2010 Overview (08/25/2022): Note from [facility] s/p removal (of fibroadenoma) and all mammogram [...] efforts. Assessment & Plan (11/08/2023 11:52 AM MACHINE STACKER): She is concerned about involuntary weight loss. She usually weighs over 200 lb. Lately she does not feel like eating but denies nausea or abdominal pain. Bowel habits are normal. We will see her back in a month for a follow-up. Assessment & Plan (09/04/2023 11:44 AM MACHINE STACKER): We encouraged attention to her diet, and hopefully a little bit of weight loss. Assessment & Plan (03/03/2023 1:04 PM CDT): We encouraged attention to her diet, and hopefully some weight loss. Assessment & Plan (08/26/2022 1:04 PM MACHINE STACKER): We encouraged attention to her diet, and [...] cardiology. Assessment & Plan (09/04/2023 11:42 AM MACHINE STACKER): Blood pressure is mildly elevated. Dr. Tena [...] in office today at 154/84 (62). Admits feed research technician recently stopped Metoprolol due to low HR. Taking Diovan, hydralyzine, and lasix as ordered. No acute findings on exam. Monitor at home daily and record bring to next office visit. Low salt diet, stay hydrated. Assessment & Plan (08/26/2022 1:01 PM MACHINE STACKER): Blood pressure is in a reasonable range [...] 02/13/2022 Assessment & Plan (11/23/2021 3:16 PM MACHINE STACKER): Systolic blood pressure is mildly elevated. We [...] days. Assessment & Plan (12/28/2020 9:38 AM MACHINE STACKER): Blood pressure is in a reasonable range today. She gets similar or lower blood pressures at home with occasional systolics of 150 in the afternoon or evening. Continue current therapy. Assessment & Plan (09/28/2020 11:42 AM MACHINE STACKER): Blood pressure is in a good range on current therapy. Continue same. Assessment & Plan (09/02/2020 2:45 PM MACHINE STACKER): She is on quite a few medicines [...] cardiac concerns and blood pressure with her feed research technician to decrease the possibility of confusion with [...] a blood pressure log to present to feed research technician and or primary care physician for further [...] have referred her to the ER at [facility] for monoclonal antibody infusion. She will continue [...] needed. Assessment & Plan (12/28/2021 2:34 PM MACHINE STACKER): Right Benign Positional Vertigo treated with Enrrique maneuver today Hearing and Balance testing [facility] Dr. Cortez Smith [phone] [facility] [place] [address] Cetirizine 5 mg (1/2 Tablet) daily Consider Left sided ear tube placement versus imaging based on hearing and balance testing Vertigo 11/16/2021 08/26/2022 Overview (08/26/2022): Seen in [place] ER. Rx with meclizine. No recurrence as of July 2022. Saw lidding machine operator for this and ringing. Assessment & Plan (12/02/2021 1:57 PM MACHINE STACKER): She woke up early Friday morning with pretty bad vertigo. There was associated tinnitus. She has not noticed any hearing loss. The only preceding symptom was some mild positional vertigo at the hairdresser the previous Friday. She went to the [facility] ER and had labs and [...] (08/22/2020): Added automatically from request for surgery [id number], see EGD, improved with treatment of Steff. [...] Nasal saline spray (Simply saline, Little Remedies, Geary, Antelope) 2 second sprays or 2 squeezes into [...] Follow up in one week. Speak to Television Picture Tube Rebuilder on Friday regarding Xarelto Assessment & Plan (05/30/2020 4:18 PM CDT): Start Nasal saline spray (Simply saline, Little Remedies, Geary, Antelope) 2 second sprays or 2 squeezes into [...] Cardiac status will be reassessed by her feed research technician. metoprolol xl 50 mg qd Assessment & Plan (07/16/2018 4:52 PM CDT): No chest pain today. Stable. Assessment & Plan (01/19/2018 9:28 AM CDT): Sec shampoo assistant lower mid chest area without radiation. Patient has a very minimum ST depression in the lateral leads which is the same in comparison to prior EKGs. Her symptoms are minimum now. She is ruled out for of acute MD with serial troponins and EKGs. Cardiology consult [...] 06/03/2018 Assessment & Plan (12/02/2017 9:42 AM MACHINE STACKER): Depo-Medrol 80mg IM x 1 now. Nebulized TX DuoNeb given. Rxs given, increase fluids, rest. Pseudophakia of both eyes 04/11/2017 Non-toxic multinodular goiter 03/05/2014 07/03/2018 Overview (01/24/2017): NONTOX MULTINODUL GOITER Chronic sinusitis 11/10/2012 11/04/2017 Overview (01/23/2017): Chronic sinusitis Thyroid nodule 02/17/2012 11/04/2017 Overview (01/23/2017): Thyroid nodule Postmenopausal 04/19/2010 02/17/2020 Non morbid obesity 04/19/2010 1 Assessment & Plan (12/28/2020 9:35 AM MACHINE STACKER): Her weight is unchanged. She is trying to lose weight. I encouraged her efforts. I encouraged smaller meal sizes to deal with abdominal bloating. Assessment & Plan (10/12/2020 4:29 PM MACHINE STACKER): She saw a dietitian. She did great [...] months. Assessment & Plan (08/24/2020 1:08 PM MACHINE STACKER): She has joined a [facility] sponsored diet program and has lost a little bit of weight. She plans to continue her efforts which consist of portion control and staying active. Chest pain 01/23/2018 Encounters Date Type Department Care Team Description 02/04/2025 Results [facility] [address] [place] [address] Mabel Mullins MD 02/02/2025 11:20 AM CDT Lab [facility] [address] [place] [address] Hyponatremia 01/31/2025 Telephone [facility] [address] [place] [address] Mabel Mullins MD 01/26/2025 11:40 AM CDT Office Visit [facility] [address] [place] [address] [place] [phone] Fernando Jarrett MD Lesion of right ear (Primary Dx); Impacted cerumen, left ear 01/20/2025 11:10 AM CDT Lab [facility] [address] [place] [address] Hyponatremia 01/20/2025 10:30 AM CDT Office Visit [facility] [address] [place] [address] Salma Segovia NP Lesion of right ear (Primary Dx); Hyponatremia; Essential hypertension 01/20/2025 10:00 AM CDT Ancillary Procedure [facility] [address] [place] [address] Breast cancer screening by mammogram 01/20/2025 Results Follow-Up [facility] [address] [place] [address] Mabel Mullins MD 01/08/2025 Results Follow-Up [facility] [address] [facility] [address] [place] [address] Mabel Mullins MD 01/06/2025 Orders Only [facility] Health Information Management [address] [place] [address] Mabel Mullins MD 12/29/2024 11:30 AM CDT Office Visit [facility] [address] [facility] [address] [place] [address] Mabel Mullins MD Medicare annual wellness visit, [...] cancer screening by mammogram 12/29/2024 Telephone [facility] [address] [facility] [address] [place] [address] Mabel Mullins MD 12/24/2024 Orders Only [place] [facility] at [address] [place] [phone] Pati Yang NP Hypertensive heart disease with chronic diastolic congestive heart failure (HCC) (Primary Dx); Atrial fibrillation status post cardioversion (HCC) 12/23/2024 Telephone [place] [facility] at [address] [place] [phone] Ezequiel Orta MA 12/22/2024 Results Follow-Up [facility] [address] [facility] [address] [place] [address] Mabel Mullins MD 12/21/2024 12:00 PM MACHINE STACKER Lab [facility] [address] [place] [address] Essential hypertension from Last 3 Months Immunizations Immunization Administration [...] Normal except hemorrhoids and diverticulosis, Dr. Brooks, [facility]. BLADDER SURGERY Overactive bladder: bladder repair, details lacking. FINE NEEDLE ASPIRATION Thyroid nodules: biopsy normal, details lacking ESOPHAGOGASTRODUODENOSCOPY 04/04/2020 Mild esophageal candidiasis, diffuse gastropathy with some retained food, small HH, Dr. Melendez, [facility]. MAMMOGRAPHY 10/09/2020 Bilateral Negative, [facility]. CARDIAC CATHETERIZATION 01/20/2018 Left No high grade lesions warranting intervention, Dr. Tena, [facility]. MAMMOGRAPHY 10/10/2021 Bilateral Negative, [facility]. DEXA SCAN 01/01/2021 Fem Neck T Score -1.3. [facility]. CARDIAC CATHETERIZATION 01/31/2022 Left No significant CAD or renal artery disease, Dr. Tena, [facility]. Done for abnormal stress test. MAMMOGRAPHY 12/12/2022 [...] metaplasia, no dysplasia or malignancy. Dr. Kumar, [facility]. MAMMOGRAPHY 01/12/2024 Bilateral Negative, [facility]. CARDIOVERSION 06/03/2024 N/A Dr. Tena, [facility]. KNEE ARTHROSCOPY 05/10/[address] Vo, [facility]. MAMMOGRAPHY 01/20/2025 Bilateral Negative, [facility]. CATARACT EXTRACTION 2016 Medical History Medical History Date Comments Hypertension [...] Added automatica lly from request for surgery [id number], see EGD, improved with treatment of Steff. Exertional dyspnea 09/19/2019 Likely due to weight, deconditioning, diastolic dysfunction. Non morbid obesity 04/19/2010 Obesity (BMI 35.0-39.9 witho ut comorbidity) 04/19/2000 Covid-19 03/05/2022 Simultaneous flu and Covid, treated with Tamiflu and monoclonal antibody with rapid recovery. Vertigo 11/16/2021 Seen in [facility] ER. Rx with meclizine. No recurrence as of July 2022. Saw lidding machine operator for this and ringing. Influenza B 03/05/2022 Saw [facility] Connell, treated with Tamiflu. BPPV (benign paroxysmal posi tional vertigo), right 12/28/[address] Brenner, vertigo re ported as resolved. Pseudophakia of both eyes 04/11/2017 Obesity (BMI 30-39.9) 04/19/2000 Sleep apnea 2017 Family History Medical History Relation Name Comments Multiple sclerosis Brother 2 Multiple sclerosis; Hypertension Brother 3 Saw Pollard Hypertensi on; Coronary artery disease Brother 4 Jomar Sten ts Multiple sclerosis Brother 4 Jomar Multiple sclerosis; Heart attack Brother 5 Francisco Myocardial infa rction; Cause of : Myocardial infarction Coronary artery disease Father Dakotah Pollard Cor onary artery disease; /Coronary artery disease; Cause of : Coronary artery disease Hypertension Father Dakotah Pollard Hypertension; Coronary artery disease Mother Connie pollard COD Diabetes Mother Connie pollard Diabetes m ellitus; Diabetes type II Mother Connie pollard Diabet es -Type 2; Hypertension Mother Connei pollard Hypertensi on; Thyroid disease Mother Connie pollard Thyroid disorder; Other Other 1 No family histo ry [...] 1 (Age 61) Brother 2 Brother 3 Saw Pollard Brother 4 Jomar Brother 5 Francisco Father Dakotah Pollard (Age 59) Mother Connie pollard (Age 80) Other 1 Other 2 Other [...] file Legal Sex Female 12:10 AM MACHINE STACKER Gender Identity Female 05/03/2020 10:38 PM CDT [...] 01/26/2025 11:23 AM CDT Plan of Treatment Health Maintenance Due Date Last Done Comments DTaP/Tdap/Td Vaccine (3 - Td or Tdap) 05/11/2023 05/11/2013, 10/20/2002 Covid-19 Vaccine (4 - 2023-2 5 season) 2024 07/03/2021, 11/29/2020, 11/01/2020 Osteoporosis Screening-Bone Density Scan 03/05/2025 03/05/2023, 01/01/2021, 02/18/2019, Additional history exists Fall Risk Assessment 12/29/2025 12/29/2024, 09/04/2023, 04/03/2023, Additional history exists Well Visit 65+ 12/29/2025 12/29/2024, 08/20, 08/26/2022, Additional history exists Breast Cancer Screening-Mammogram 01/20/2026 01/20/2025, 01/12/2024, 12/12/2022, Additional history exists Depression Screening 01/20/2026 01/20/2025, 12/29/2024, 09/04/2023, Additional history exists Colon Cancer Screening-Colonoscopy 04/03/2026 04/03/2023, 08/03/2014 Hepatitis C Screening Completed 02/13/2017 Pneumococcal vaccine 65+ Completed 12/03/2018, 08/21 Zoster Vaccine Completed 02/21/2021, 03/2020, 07/02/2011 Colon Cancer Screening-CT Colonography Discontinued 04/03/2023, 08/03/2014 Colon Cancer Screening-DNA Stool Discontinued 04/03/20, 08/03/2014 Colon Cancer Screening-FIT Discontinued 04/03/2023, Colon Cancer Screening-Sigmoidoscopy Discontinued 04/03/2023, 08/03/2014 Hepatitis B Screening Completed 02/09/2024 Influenza Vaccine Completed 06/30/2024, , 08/26/2022, Additional history exists Medical Devices Implanted Type Area Protective Signal Repairer Helper Device Identifier Shelf Expiration Date Model / Serial / Lot Angio-Seal Evolution 6fr Vascular Closure [id number] - [id number] Implanted:Qty: 1 on 01/31/2022 by Jh Tena MD at [facility] Other - see comments [email or web address] 10/19/2022 [id number] / / [id number] Procedures Procedure Name Priority Date/Time Associated Diagnosis [...] AM CDT EGFR Routine 12/21/2024 11:58 AM MACHINE STACKER Essential hypertension THYROID FUNCTION CASCADE Routine 12/21/2024 11:58 AM MACHINE STACKER Essential hypertension BASIC METABOLIC PANEL Routine 12/21/2024 11:58 AM MACHINE STACKER Essential hypertension COLONOSCOPY 04/03/2023 8:38 AM CDT [...] was last reviewed 2021. Testing performed by: [address] [address] Blood 02/02/2025 11:2 0 AM CDT 02/02/2025 8:18 PM CDT Mabel Mullins MD LAB BLOOD ORDERABLES Final Re sult [address] Department [place] [address] * (ABNORMAL) Basic metabolic panel (02/02/2025 11:20 AM CDT) Sodium 131(L) 135 - 145 mmol/L Comment:Testing performed by : [address] [address] Potassium, pl 4.0 3.3 - 4.9 mmol/L [facility] Comment:Testing performed by : [address] [address] Chloride 95(L) 97 - 110 mmol/L [facility] Comment:Testing performed by : [address] [address] CO2 24 22 - 32 mmol/L [facility] Comment:Testing performed by : [address] [address] Anion gap 12 2 - 15 mmol/L [facility] Comment:Testing performed by : [address], [address] BUN 13 6 - 25 mg/dL [facility] Comment:Testing performed by : [address], [address] Creatinine 0.76 0.60 - 1.10 mg/dL [facility] Comment:Testing performed by : [address], [address] Glucose 103 70 - 199 mg/dL [facility] Comment: Interpretive Data Fasting glucose >/= 126 [...] was last revised 2022. Testing performed by: [address], [address] Calcium 8.9 8.5 - 10.3 mg/dL [facility] Comment:Testing performed by : [address], [address] Blood 02/02/2025 11:2 0 AM CDT 02/02/2025 6:45 PM CDT us Mabel Mullins MD LAB BLOOD ORDERABLES Final Re sult [address] Department [place] [address] * eGFR (01/20/2025 11:12 AM CDT) eGFR [...] was last reviewed 2021. Testing performed by: [address] [address] Blood 01/20/2025 11:1 2 AM CDT 01/20/2025 6:49 PM CDT Salma Segovia NP LAB BLOOD ORDERABLES Final Resul t [address] Department [place] [address] * (ABNORMAL) Basic metabolic panel (01/20/2025 11:12 AM CDT) Sodium 131(L) 135 - 145 mmol/L Comment:Testing performed by : [address] [address] Potassium, pl 3.7 3.3 - 4.9 mmol/L [facility] Comment:Testing performed by : [address] [address] Chloride 91(L) 97 - 110 mmol/L [facility] Comment:Testing performed by : [address] [address] CO2 26 22 - 32 mmol/L [facility] Comment:Testing performed by : [address] [address] Anion gap 14 2 - 15 mmol/L [facility] Comment:Testing performed by : [address] [address] BUN 11 6 - 25 mg/dL [facility] Comment:Testing performed by : [address], [address] Creatinine 0.88 0.60 - 1.10 mg/dL [facility] Comment:Testing performed by : [address] [address] Glucose 109 70 - 199 mg/dL [facility] Comment: Interpretive Data Fasting glucose >/= 126 [...] was last revised 2022. Testing performed by: [facility], [address] [place] [address]., [address] Calcium 8.9 8.5 - 10.3 mg/dL [facility] Comment:Testing performed by : [address] [address] Blood 01/20/2025 11:1 2 AM CDT 01/20/2025 6:14 PM CDT Salma Segovia NP LAB BLOOD ORDERABLES Final Resul t Performing Organization Address City/State/[facility] Co de Phone Number [facility] [address] Department [place] [address] * Screening Mammogram Bilateral W Virgilio (01/20/2025 [...] There has been no suspicious interval change. Mabel Mullins MD IMG MAMMO PROCEDURES Final Re sult * SCAN - RADIOLOGY/IMAGING (01/06/2025 8:52 AM CDT) Anatomical Region Laterality Modality Other Mabel Mullins MD Final Result * eGFR (12/21/2024 11:58 AM MACHINE STACKER) eGFR 77 >=60 mL/min/1. 73 m2 Comment: [...] was last reviewed 2021. Testing performed by: [facility], [address] [place] [address], [place]., [address] Blood 12/21/2024 11:5 8 AM MACHINE STACKER 12/21/2024 6:26 PM MACHINE STACKER us Mabel Mullins MD LAB BLOOD ORDERABLES Final Re sult Performing Organization Address [facility] Co de Phone Number [address] [place] [address] * Thyroid Function [place] (12/21/2024 11:58 AM MACHINE STACKER) Pathologist [facility] TSH 0.32 0.30 - 4.20 mcIUnit/mL Comment:Testing performed by : [address] [address] Blood 12/21/2024 11:5 8 AM MACHINE STACKER 12/21/2024 6:10 PM MACHINE STACKER us Mabel Mullins MD LAB BLOOD ORDERABLES Final Re sult Performing Organization Address [facility] Co de Phone Number [facility] [address] [place] [address] * (ABNORMAL) Basic metabolic panel (12/21/2024 11:58 AM MACHINE STACKER) [facility] Sodium 128(L) 135 - 145 mmol/L Comment:Testing performed by : [address] [address] Potassium, pl 3.6 3.3 - 4.9 mmol/L [facility] Comment:Testing performed by : [address] [address] Chloride 89(L) 97 - 110 mmol/L [facility] Comment:Testing performed by : [address], [address] CO2 26 22 - 32 mmol/L [facility] Comment:Testing performed by : [address], [address] Anion gap 13 2 - 15 mmol/L [facility] Comment:Testing performed by : [address], [address] BUN 13 6 - 25 mg/dL [facility] Comment:Testing performed by : [address], [address] Creatinine 0.81 0.60 - 1.10 mg/dL [facility] Comment:Testing performed by : [address] [address] Glucose 112 70 - 199 mg/dL [facility] Comment: Interpretive Data Fasting glucose >/= 126 [...] was last revised 2022. Testing performed by: [facility], [address] [place] [address]., [address] Calcium 8.9 8.5 - 10.3 mg/dL [facility] Comment:Testing performed by : [address] [address] Blood 12/21/2024 11:5 8 AM MACHINE STACKER 12/21/2024 6:10 PM MACHINE STACKER us Mabel Mullins MD LAB BLOOD ORDERABLES Final Re sult [facility] [address] Department of Laboratories [place] [id number] * COLONOSCOPY (04/03/2023 8:38 AM CDT) Anatomical Region Laterality Modality Other Narrative Procedure Note Obdulio Kumar MD - 04/03/2023 8:[address] [facility] Patient Name: Brigida Ordaz Procedure Date: 04/03/2023 8:38 AM Date of : 1950 Admit Type: Outpatient Age: 72 Gender: Female Attending MD: Obdulio Kumar M.D. Room: [facility] ENDOSCOPY ROOM 2 Note Status: Finalized Patient Profile: This is a 72 year old female hx of HLD, HTN, AFib status post cardioversion on Xarelto, CAD, thyroid nodules, hypothyroidism, chronic iron deficiency anemia and chronic hyponatremia here forcolonoscopy for iron-deficiency anemia. Last abeulddtcur08/2014 showed hemorrhoids and mild diverticulosis. Nofamily history [...] procedure were verified by the physician, the aerial applicator pilot and the eeg technician in the endoscopy suite. Mental Status [...] scope was passed under direct vision. TheColonoscope [id number] was introduced through the anus and advanced [...] 8:38 AM Procedure Code(s): --- Professional --- 75689, Colonoscopy, flexible; diagnostic, including collection of specimen(s) by brushing or washing, when performed (separateprocedure) --- Technical --- 79567, Colonoscopy, flexible; diagnostic, including collection of specimen(s) by brushing or washing, when performed (separateprocedure) Diagnosis Code(s): --- Professional --- K64.8, Other hemorrhoids K64.4, Residual hemorrhoidal skin tags D50.9, Iron deficiency anemia, unspecified --- Technical --- K64.8, Other hemorrhoids K64.4, Residual hemorrhoidal skin tags D50.9, Iron deficiency anemia, unspecified CPT copyright 2020 [employer]. All rights reserved. The codes documented in this report are preliminary and upon hematology supervisor reviewmay be revised to meet current compliance requirements. Recognized by the [employer] for promoting quality [...] F with given history of screening. 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 MF: HAYLEY Report ID: [id number] Reading Location: [place] [address] Procedure Note Lew Tiwari MD - 03/05/2023 EXAM DESCRIPTION: DEXA AXIAL SKELETON BONE DENSITY 1 OR MORE SITES REASON FOR STUDY: 72 y/o year old F with given history of screening. 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 MF: HAYLEY Report ID: [id number] Reading Location: [place] [address] Mabel Mullins MD IMG DXA PROCEDURES Final Resu lt * HEPATITIS C SCREENING (02/13/2017) [facility] HEP C Normal Comment:NEGATIVE Historical Provider HEALTH MAINTENANCE Final Result from Last 3 Months or Most Recently Relevant to Health Maintenance Insurance [facility] MEDICARE ADVANTAGE [facility] Address: [address] [place] [phone] [facility] Address: [address] [place] [id number] MEDICARE ADVANTAGE [facility]IC[facility] Address: [address] [place] [phone] Advance Directives For more information, please contact: [phone] * Full Code (Latest Code Status on [...] 4:48 AM 01/22/2018 5:06 PM Care Teams Elementary Educator Relationship Specialty Start Date End Date Mabel Mullins MD [address] [place] [address] PCP - General Infectious Diseases 02/17/20 Jh Tena MD Consulting Physician Cardiology 01/08/18 Carmen Hurst MD Consulting Physician Neurology 01/08/18 Reji Clarke DO [address] [place] [address] Referring Physician Orthopedic Surgery 08/17/19 Vaughn Melendez MD [address] [place] [address] Consulting Physician Gastroenterology 08/03/20 Frederick Burton, [address] [place] [address] Dentist Dental Sap Pi Architect 04/12/21 Doris Brenner DO [address] [facility] [address] [place] [address] Consulting Physician Otolaryngology 12/28/21 Obdulio Kumar MD [address] [place] [address] [address], [place] [address] Consulting Physician Gastroenterology 04/03/23 [place] [address] [facility] [address] [place] [address] Consulting Physician Orthopedic Surgery 04/24/23 El Vo MD [address] [facility] [address] [place] [address] Referring Physician Orthopedic Surgery 10/15/23 Pati Yang NP [address] [facility] 10 [place] [address] Nurse Practitioner Cardiology 03/31/24
--- OUTSIDE RECORDS SUMMARY | 2025-02-07 00:44 | XMS_ITS | Continuity of Care Document ---
Author Organization [facility] Address [address] [place] [address] Phone Care Team Providers Care Reservations Specialist Name Role Phone Carol Villagomez OD Unavailable [...] Diagnoses Date Provider Providers Copied on Encounter [facility], [address], [place], [place], [id number], [place] tel:[phone] SEC Sameer MARIE Professional Complete Exam (chief complaint) Pseudophakia of both eyesOther secondary cataract, left eyeCornea verticillata of both eyesDry eye syndrome of bilateral lacrimal glandsVitreo us degeneration , left eye 4 Hernando OD Carol. [address], [address], [place], [place], [address], [place]. tel:[phone] Luis Alberto Beauchamp MD.Referring Provider: Saw Luther, [address], [address]. tel:[phone] [facility], [address] [place] [address] [address], [place], [place], [address], [place] tel:[phone] SEC [place] Professional Complete Exam (chief complaint) Pseudophakia of both eyesOther secondary cataract, left eyeCornea verticillata of both eyesDry eye syndrome of bilateral lacrimal glands 3 Hernando OD Carol. [address] [place] [address], [address], [place], [place], [address], [place]. tel:[phone] Luis Alberto Beauchamp MD.Referring Provider: Saw Luther, [address], [address]. tel:[phone] [facility], [address] [place] [address] [address], [place], [place], [address], [place] tel:[phone] SEC Sameer [place] Professional Complete Exam (chief complaint) Cornea verticillata of both eyesInsuffic iency of tear film of both eyesPseudoph chitra of both eyes 2 Jean Claude Lawson. [address], [facility] [place], [address], [place]. tel:[phone] Luis Alberto Beauchamp MD.Referring Provider: Saw Luther, [address], [address]. tel:[phone] [facility], [address] [place] [address] [address], [place], [place], [address], [place] tel:[phone] SEC [place] Professional Complete Exam (chief complaint) Pseudophakia of both eyesCornea verticillata of both eyesDry eye syndrome of left lacrimal gland 1 Jean Claude Lawson. [address], [address], [place], [place], [address], [place]. tel:[phone] Referring Provider: Saw Luther, [address], [address]. tel:[phone] [facility], [address], [place], [place], [address], [place] tel:[phone] SEC [place] Professional Complete Exam (chief complaint) Vitreous degeneration , right eyeOther secondary cataract, left eyeCornea verticillata of both eyesPseudoph chitra of both eyes 0-202 0 Wei OD Alexander. [address] [place] [address], [address] [place] [address], [place], [address], [place]. tel:[phone] Referring Provider: Saw Luther, [address], [address]. tel:[phone] [facility], [address] [place] [address] [address], [place], [place], [address], [place] tel:[phone] SEC [place] Professional No Information 0 Jean Claude Lawson. [address] [facility], [address], [place], [place], [address], [place]. tel:[phone] Specialist: Luis Alberto Beauchamp MD, [address] [place] [address] [address], [place], [address]. tel:[phone] [facility], [address] [place] [address] [address], [place], [place], [address], [place] tel:[phone] SEC [place] Professional 3 week s/p YAG PC (chief complaint) Encounter for examination following surgery 2201 9 Wei OD Alexander. [address] [place] [address], [address] [facility], [place], [address], [place]. tel:[phone] Referring Provider: Saw Luther, [address], [address]. tel:[phone] [facility], [address], [place], [place], [address], [place] tel:[phone] SEC [place] Professional Complete Exam (chief complaint) Pseudophakia of both eyesOther secondary cataract, bilateralPun ctate keratitis, bilateralCor greg verticillata of both eyes Jan-1 2-201 9 Jean Claude Lawson. [address], [address] [place], [address], [place]. tel:[phone] Referring Provider: Saw Luther, [address], [address]. tel:[phone] [facility], [address] [place] [address] [address], [place], [place], [address], [place] tel:[phone] SEC Sameer [place] Professional No Information Jan-0 5- 9 Jean Claude Lawson. [address], [address] [place], [address], [place]. tel:[phone] [facility], [address] [place] [address] [address], [place], [place], [address], [place] tel:[phone] SEC [place] Professional Complete Exam (chief complaint) Insufficienc y of tear film of both eyesPseudoph chitra of both eyes Jared-2 3-201 7 Jean Claude Lawson. [address], [address] [place], [address], [place]. tel:[phone] Referring Provider: Saw Luther, [address], [address]. tel:[phone] [facility], [address] [place] [address] [address], [place], [place], [address], [place] tel:[phone] [place] Professional Post-Op (chief complaint) No Information Jun-3 0-201 6 Jean Claude Lawson. [address], [place], [address], [place]. tel:[phone] Referring Provider: Saw Luther, [address], [address]. tel:[phone] [facility], [address], [place], [place], [address], [place] tel:[phone] SEC [facility] Professional Post-Op (chief complaint) No Information Sep-0 6 Silverio Renny. [address] [facility], [address] [place], [address], [place]. tel:[phone] Referring Provider: Saw Luther, [address], [address]. tel:[phone] [facility], [address] [place] [address] [address], [place], [place], [address], [place] tel:[phone] SEC [facility] Professional Post-Op (chief complaint) No Information Sep-0 - 6 Wankum Marlo. [address] [facility], [address] [place], [address], [place]. tel:[phone] Referring Provider: Saw Luther, [address], [address]. tel:[phone] [facility], [address], [place], [place], [address], [place] tel:[phone] [facility] No Information May-3 - 6 Jean Claude Lawson. [address] [facility], [address] [place], [address], [place]. tel:[phone] Referring Provider: Saw Luther, [address], [address]. tel:[phone] [facility], [address], [place], [place], [address], [place] tel:[phone] SEC Sameer MARIE Professional 1 month post op (chief complaint) No Information 6 Jean Claude Lawson. [address] [facility], [address] [place], [address], [place]. tel:[phone] Referring Provider: Saw Luther, [address], [address]. tel:[phone] [facility], [address], [place], [place], [address], [place] tel:[phone] SEC Sameer MARIE Professional Post-Op (chief complaint) No Information 6 Jean Claude Lawson. [address] [facility], [address] [place], [address], [place]. tel:[phone] Referring Provider: Saw Luther, [address], [address]. tel:[phone] [facility], [address] [place] [address] [address], [place], [place], [address], [place] [phone] SEC Sameer MARIE Professional F/u exam, postop (chief complaint) No Information 6 Sina Sellers. [address] [facility], [address] [place], [address], [place]. tel:[phone] Referring Provider: Saw Luther, [address], [address]. tel:[phone] [facility], [address], [place], [place], [address], [place] [phone] [facility] No Information 6 Jean Claude Lawson. [address] [facility], [address] [place], [address], [place]. tel:[phone] Referring Provider: Saw Luther, [facility] [address] [place], [address]. tel:[phone] [facility], [address], [place], [place], [address], [place] tel:[phone] SEC Sameer [place] Professional Cataract Evaluation (chief complaint) No Information Jean Claude Lawson. [address] [facility], [address], [place], [place], [address], [place]. tel:[phone] Referring Provider: Saw Luther, [facility] [address] [place], [address]. tel:[phone] Family History Family Member Type Diagnosis Age At Onset Mother Problem (finding) Diabetes mellitus Payers Payer name Insurance type Covered democrat ID Authorramakrishna moss(s) AARP Medicare Complete [place] [id number] Social History Type Description Quantity Date Captured [...]
[2025-02-07] MEDS: VANCOMYCIN HCL 1,000 MG VIAL 1000 MG TOPICAL (08:57)
[2025-02-07] MEDS: ACETAMINOPHEN 500 MG TABLET 1000 MG PO (10:40)
[2025-02-07] MEDS: LACTATED RINGERS 1,000 ML 30 ML IV CONT ×3 (10:45→15:21)
[2025-02-07] MEDS: TRANEXAMIC ACID 1,000MG/ISO100 1,000 MG/100 ML BAG 200 MG IVPB (10:52)
--- NOTE | 2025-02-07 10:54 | P.PNAN_ITS ---
Anes - Initial Pre Proc Eval Procedure: Operation Date: 02/07/25 12:00 Proposed Procedures p Reverse Left Total Shoulder Arthroplasty - El Vo MD Date/Time: 02/07/25 10:54 Surgeon: El Vo MD Pre Op Diagnosis: left shoulder fracture with malunion Patient Data Age: 74 Gender: F Height: 1.68 m Weight: 83 kg Last Vital Signs Temp 36.6 C 01/05/25 14:40 Pulse 74 01/05/25 14:40 Resp 18 01/05/25 14:40 BP 153/88 H 01/05/25 14:40 Pulse Ox 99 01/05/25 14:40 O2 Del Method Room Air 01/05/25 14:40 Allergies Allergy/AdvReac Type Severity Reaction Status Date / Time Sulfa (Sulfonamide Allergy Severe ITCHING, Verified 01/05/25 13:58 Antibiotics) TONGUE SWELLING omega-3 acid ethyl esters Allergy Unknown Swelling Verified 01/05/25 13:58 SHELLFISH Allergy Intermediate N/V Uncoded 01/05/25 13:58 Home Medications ?Medication ?Instructions ?Recorded ?Confirmed ?Type ezetimibe 10 mg tablet 10 mg PO DAILY 09/26/23 02/07/25 History gabapentin 100 mg capsule 100 mg PO BID 09/26/23 02/07/25 History hydralazine 100 mg tablet 100 mg PO TID 09/26/23 02/07/25 History levothyroxine 200 mcg capsule 200 mcg PO DAILY 09/26/23 02/07/25 History metoprolol succinate 25 mg 12.5 mg PO DAILY 09/26/23 02/07/25 History tablet,extended release 24 hr oxybutynin chloride 5 mg tablet 5 mg PO BID 09/26/23 02/07/25 History esomeprazole magnesium 40 mg 40 mg PO BID 10/15/23 02/07/25 History capsule,delayed release cholecalciferol (vitamin D3) 25 25 mcg PO DAILY 01/28/24 02/07/25 History mcg (1,000 unit) tablet magnesium 1 tab-cap PO DAILY 01/28/24 02/07/25 History potassium chloride 20 mEq 20 meq PO DAILY 05/04/24 02/07/25 History tablet,extended release valsartan 320 mg tablet 320 mg PO DAILY 05/04/24 01/05/25 History acetaminophen 500 mg tablet 1,000 mg PO QID PRN pain 01/05/25 01/05/25 History (Acetaminophen Extra Strength) amiodarone 200 mg tablet 100 mg PO DAILY 01/05/25 02/07/25 History apixaban 5 mg tablet (Eliquis) 5 mg PO BID 01/05/25 02/07/25 History calcium 600 mg (as 1 cap PO DAILY 01/05/25 02/07/25 History carbonate)-vitamin D3 5 mcg (200 unit) capsule (Calcium 600 + D(3)) furosemide 40 mg tablet 20 mg PO QAM 01/05/25 02/07/25 History valsartan 320 1 tablet PO DAILY 01/05/25 02/07/25 History mg-hydrochlorothiazide 25 mg tablet oxycodone-acetaminophen 5 mg-325 1 - 2 tablet PO Q4-6H PRN pain #30 02/07/25 Rx mg tablet tabs Patient hx anesthesia problems: none Family hx anesthesia problems: none Results Review: All pre-operative results and documents have been reviewed as part of the pre- operative evaluation. [facility] Past Medical History Medical History History of stress test Sleep apnea Congestive heart disease A-fib Hypertension Surgical History Surgical History History of cholecystectomy History of hysterectomy History of thyroidectomy Family History Family History Mother Diabetes mellitus Father Heart disease Social History Social History Smoking status: Never smoker Second hand tobacco smoke exposure: No Alcohol intake: current Substance use: never Substance use type: does not use Do You Feel Safe in your Home?: Yes Lack of Transportation: No Lack of Food: Never True Current Housing: I Have Housing Concerned About Future Housing: No Difficulty Paying Gas/Electric Bills: No Difficulty Paying for Meds: No Currently Unemployed: No Education: High School Diploma/GED Difficulty w/ Childcare or Family Care: No Living arrangements: with family Spiritual care concerns: No Anes - Eval Final PreProcedure Day of Procedure 02/07/25 10:54 Patient weight: overweight Heart: irregular rhythm Lungs: clear to auscultation Airway: Mallampati scale class II Neurological: alert and oriented Last oral intake: >/= 8 hours ASA classification: III Emergent: no Anesthetic plan: proceed Anesthesia type and monitoring: general ETT and standard monitoring Results Review: All pre-operative results and documents have been reviewed as part of the pre- operative evaluation. Informed Consent: The patient's anesthetic plan and its attendant risks and benefits were discussed with the patient/family/POA. Questions were solicited and answers provided to the satisfaction of the patient/family/POA.
--- NOTE | 2025-02-07 11:46 | WPDHPUPDATE1 ---
History and Physical Update Update Date/Time: 02/07/25 11:46 History and Physical has been reviewed, including an updated exam of the patient. There are NO changes in the patient's condition. Risks, benefits, and alternatives have been discussed and questions answered. Patient agrees to proceed with procedure.
--- NOTE | 2025-02-07 11:58 | P.HP_ITS ---
H&P: HPI History of Present Illness Date/Time: 02/07/25 11:58 Chief Complaint: Left shoulder pain. Narrative: Patient presents for surgery. No changes since previous visit. 74-year-old female with persistent pain and dysfunction of the left shoulder 1 year after suffering a left proximal humerus fracture. Pain limits her daily function. Her activities of daily living are compromised and she has quite a bi t of pain. Treatments: Medications: Tylenol with some benefit. PMH: CHF, Is on blood thinners, HTN, A.fib. She is on Eliquis. Okay to stop for 2-3 days per her metal spinner. Hyponatremia. Per patient if there is an issue with her sodium, her doctors will be aware and will make changes to her medications to get it back up before surgery. Examination Mild deformity. Active elevation 60? passive 100?. Mild tenderness at the proximal humerus. Deltoid intact. External rotation strength is satisfactory. Neurovascular intact. No skin rash or lesion. No edema or varicosities. Diagnostics: Shoulder radiographs 09/26/23: Valgus impacted proximal malunion. Mature callus and bone healing. Mild to moderate deformity. Articular surfaces impacted but fairly well centered over the shaft. Evidence for osteoporosis. Patient has gotten her CT scan for pre-operative planning. Impression Left shoulder proximal humeral fracture malunion remains painful and functions poorly. Dr. Vo and the patient discussed operative and non-operative options in detail and agreed to proceed with reverse total shoulder arthroplasty, left. The procedure is more complex due to the deformity. Will have a primary reverse implant as well as a stemmed implant available. I had a lengthy discussion with the patient. Risks, benefits, and alternatives discussed. Reviewed post operative expectations and exercises. Reviewed wound care postoperatively. Patient shows good understanding. Proceed with reverse total shoulder arthroplasty, left. Pain medication: Percocet DVT Prophylaxis: Resume Eliquis 2 days after surgery, short frequent walks, compression socks. [facility] Past Medical History Medical History History of stress test Sleep apnea Congestive heart disease A-fib Hypertension Surgical History Surgical History History of cholecystectomy History of hysterectomy History of thyroidectomy Family History Family History Mother Diabetes mellitus Father Heart disease Social History Social History Smoking status: Never smoker Second hand tobacco smoke exposure: No Alcohol intake: current Substance use: never Substance use type: does not use Do You Feel Safe in your Home?: Yes Lack of Transportation: No Lack of Food: Never True Current Housing: I Have Housing Concerned About Future Housing: No Difficulty Paying Gas/Electric Bills: No Difficulty Paying for Meds: No Currently Unemployed: No Education: High School Diploma/GED Difficulty w/ Childcare or Family Care: No Living arrangements: with family Spiritual care concerns: No Meds Home Medications and Allergies Home Medications ?Medication ?Instructions ?Recorded ?Confirmed ?Type ezetimibe 10 mg tablet 10 mg PO DAILY 09/26/23 02/07/25 History gabapentin 100 mg capsule 100 mg PO BID 09/26/23 02/07/25 History hydralazine 100 mg tablet 100 mg PO TID 09/26/23 02/07/25 History levothyroxine 200 mcg capsule 200 mcg PO DAILY 09/26/23 02/07/25 History metoprolol succinate 25 mg 12.5 mg PO DAILY 09/26/23 02/07/25 History tablet,extended release 24 hr oxybutynin chloride 5 mg tablet 5 mg PO BID 09/26/23 02/07/25 History esomeprazole magnesium 40 mg 40 mg PO BID 10/15/23 02/07/25 History capsule,delayed release cholecalciferol (vitamin D3) 25 25 mcg PO DAILY 01/28/24 02/07/25 History mcg (1,000 unit) tablet magnesium 1 tab-cap PO DAILY 01/28/24 02/07/25 History potassium chloride 20 mEq 20 meq PO DAILY 05/04/24 02/07/25 History tablet,extended release valsartan 320 mg tablet 320 mg PO DAILY 05/04/24 01/05/25 History acetaminophen 500 mg tablet 1,000 mg PO QID PRN pain 01/05/25 01/05/25 History (Acetaminophen Extra Strength) amiodarone 200 mg tablet 100 mg PO DAILY 01/05/25 02/07/25 History apixaban 5 mg tablet (Eliquis) 5 mg PO BID 01/05/25 02/07/25 History calcium 600 mg (as 1 cap PO DAILY 01/05/25 02/07/25 History carbonate)-vitamin D3 5 mcg (200 unit) capsule (Calcium 600 + D(3)) furosemide 40 mg tablet 20 mg PO QAM 01/05/25 02/07/25 History valsartan 320 1 tablet PO DAILY 01/05/25 02/07/25 History mg-hydrochlorothiazide 25 mg tablet oxycodone-acetaminophen 5 mg-325 1 - 2 tablet PO Q4-6H PRN pain #30 02/07/25 Rx mg tablet tabs Allergies Allergy/AdvReac Type Severity Reaction Status Date / Time Sulfa (Sulfonamide Allergy Severe ITCHING, Verified 02/07/25 11:12 Antibiotics) TONGUE SWELLING omega-3 acid ethyl esters Allergy Unknown Swelling Verified 02/07/25 11:12 SHELLFISH Allergy Intermediate N/V Uncoded 02/07/25 11:12 Vital Signs Vital Signs - 24 hr 02/07/25 10:30 Temperature 97.4 F L Pulse Rate 60 Respiratory Rate 18 Blood Pressure 160/74 H Pulse Oximetry 100 Oxygen Delivery Room Air Assessment and Plan Assessment and plan (1) Fracture of left shoulder with malunion: Qualifiers: Fracture type: closed Qualified Code(s): S42.92XP - Fracture of left shoulder girdle, part unspecified, subsequent encounter for fracture with malunion Code(s): S42.92XP - Fracture of left shoulder girdle, part unspecified, subsequent encounter for fracture with malunion Status: Acute
[2025-02-07] MEDS: ceFAZolin 2 GM/D5W 50 ML 2 GM/50 ML BAG IVPB ×2 (12:08→20:09)
[2025-02-07] MEDS: SODIUM CHLORIDE 0.9% IV 37.7 ML, MORPHINE SULFATE INJ (*CRX) 2 MG, ROPivacaine HCL 1% 2... INFILTRATE (12:49)
--- NOTE | 2025-02-07 14:58 | W.PM.PROC2 ---
Procedure Note - Detailed Date of Procedure 02/07/25 Pre-op Diagnosis Left shoulder fracture with malunion Post-op Diagnosis Same Procedure Performed Reverse total shoulder arthroplasty, left Surgeon El Vo MD Engineering And Development Director Gabbi Swanson PA-C Anesthesia General Indications Valgus impacted malunion. One year status post initial injury. Persistent pain, functional limitation, and stiffness. Findings Excellent bone quality. Significant valgus impacted malunion required extensive soft tissue releases, including posterior capsule excision. The humeral head cut required additional cut down to the rotator cuff insertion. The glenoid was fairly small and completely covered by the base plate. Bone quality was satisfactory. A 5 degree superior augment used according to preoperative templating. The humerus deformity required valgus positioning of the stem. Proximal bone quality was excellent. The subscapularis was not reducible without excessive tension. The lesser tuberosity was moderately prominent and a slight release of the coracobrachialis tendon was performed. Description of Procedure The patient was given an interscalene block in the preoperative area. Preoperative antibiotics were given. The patient was transferred to the operating room and a general anesthetic was administered. The beach chair position was used at 45 degrees. All bony prominences were padded. The head was carefully stabilized on the McConnel heat treater head. A sterile prep and drape was performed in the usual manner with ChloraPrep. A longitudinal incision was created at the anterior shoulder just lateral to the deltopectoral interval. Hydrogen peroxide was placed on the incision and then rinsed after one minute. Careful dissection was performed to expose the interval and protect the cephalic vein. The vein was retracted medially. The upper border of the pectoralis was left intact. Anterior circumflex vessel branches were suture ligated. The biceps was tenodesed. A subscapularis tenotomy was performed. The inferior capsule was released, exposing the humeral head. Osteophytes were removed. Care was taken to stay on bone to protect the axillary nerve. The head cut was assessed with the external alignment guide. Cut was taken according to the guide with proximate 25? retroversion. The cut protector was placed, and attention was turned to the glenoid. Retractors were placed. Releases were carried out for exposure. The subscapularis was mobilized, the inferior capsule and long head of triceps released, and the superior and middle glenohumeral ligaments released as well. Labral tissue was resected as needed. The posterior capsule required excision. Version and inclination were corrected according to preoperative templating. The sizing template was used to assess the baseplate position low on the glenoid, with an approximate <5 degrees corrections of retroversion and 10 degrees of inclination. A guide pin was placed. Minimal reaming with the 5 degree angle Reamer was used to accomplish a flat surface without violating minimal inferior subchondral bone. The boss was drilled, and the real component was impacted into position. The central compression screw was placed followed by supplemental locking screws. The glenosphere was impacted into the taper. The anatomic head cut was taken with the oscillating saw. The guide pin was placed, central drilling performed, and the broach trial inserted. The neck anteversion and inclination were carefully assessed. The proximal humerus was reamed for the inset component. The humeral components were trialed. The real humeral stem, tray, and insert were impacted into position. The shoulder was copiously irrigated periodically with pulsatile lavage. The shoulder was reduced and stability confirmed. 1 gram of Vancomycin powder was placed in the joint. The remaining tissue was closed with 2-0 Vicryl, 3-0 Stratafix and 4-0 Stratafix, and steri-strips. A sterile silver occlusive dressing and shoulder immobilizer were placed. The patient was transferred to the recovery room. Physician music library assistant, Gabbi Swanson PA-C, required for surgery; including patient positioning, draping, tissue retraction, maintaining instrument position, wound closure, and dressing placement. Implants Shoulder [employer] reverse TSA size 0 stem. +0 polyethylene insert. 5 augmented baseplate. 33+3 mm glenosphere. Estimated Blood Loss 150 Drains No Pathology None sent Complications No immediate complications Condition Stable Disposition PACU [facility] Billing Surgery - Charge Forward: Surgery Billing
[2025-02-07] MEDS: fentaNYL CITRATE INJ (*CRX) 100 MCG/2 ML VIAL 25 MCG IV PUSH ×8 (15:26→15:49)
[2025-02-07] MEDS: HYDROmorphone HCL INJ (*CRX) 1 MG/ML SYR 0.25 MG IV PUSH ×8 (16:15→16:50)
--- NOTE | 2025-02-07 17:42 | ADMGEN ---
This patient, Brigida Ordaz, was admitted to 3 [facility] Surg Room 319-01. Patient/family oriented to hospital policies and general routines including ID bracelet, bed and alarms, visiting hours, pain management, procedures, bathroom and other care routines, personal items, smoking policy, room service/diet, and visiting hours. Information on how to activate the Rapid Response Team has been discussed. Patient/Family are encouraged to report perceived risks to care and to ask questions if they do not understand what they are told or what they should do.
[2025-02-07] MEDS: ACETAMINOPHEN 325 MG TABLET 650 MG PO ×2 (18:06→23:15)
[2025-02-07] MEDS: SENNA/DOCUSATE SODIUM TABLET 2 TAB PO (18:07)
[2025-02-07] MEDS: ASPIRIN 81 MG ENTERIC TABLET PO (18:07)
[2025-02-07] MEDS: GABAPENTIN 100 MG CAPSULE PO (18:07)
[2025-02-07] MEDS: hydrALAZINE HCL 50 MG TABLET 100 MG PO (18:07)
[2025-02-07] MEDS: oxyBUTYnin CHLORIDE 5 MG TABLET PO (18:08)
[2025-02-07] MEDS: SODIUM CHLORIDE 0.9% IV 1,000 ML 125 ML IV CONT (18:09)
[2025-02-07] MEDS: ONDANSETRON INJ 4 MG/2 ML VIAL IV PUSH (20:08)
[2025-02-07] MEDS: HYDROmorphone HCL INJ (*CRX) 1 MG/ML SYR IV PUSH (20:08)
[2025-02-07] MEDS: PANTOPRAZOLE 40 MG TABLET PO (20:12)
[2025-02-08] MEDS: ONDANSETRON INJ 4 MG/2 ML VIAL IV PUSH (02:26)
[2025-02-08 03:15] VITALS: BP 159/79; PULSE 104; RESP 20; TEMP 36.9; O2SAT 98
[2025-02-08] MEDS: ceFAZolin 2 GM/D5W 50 ML 2 GM/50 ML BAG IVPB ×2 (03:24→12:16)
[2025-02-08 05:53] LABS: Basophils Percent Auto 0.1 % (0.2-1.2); Hematocrit 36.1 % (37.0-47.0); Hemoglobin 11.8 g/dL (12.0-15.0); Immature Granulocyte Absolute 0.13 K/mm3 (0.00-0.031); Immature Granulocyte Percent A 0.7 % (0-0.5); Lymphocytes Percent Auto 3.3 % (18.3-44.2); Mean Corpuscular HGB Conc 32.7 g/dl (32-36); Mean Corpuscular Hemoglobin 27.8 pg (26-34); Mean Corpuscular Volume 84.9 fl (80-100); Mean Platelet Volume 9.7 fl (7.4-10.4); Monocytes Absolute Auto 1.4 K/mm3 (0.1-0.6); Monocytes Percent Auto 7.7 % (2.6-8.5); Neutrophils Absolute Auto 16.2 K/mm3 (1.3-6.7); Neutrophils Percent Auto 88.2 % (45.5-73.1); Platelet Count Result 402 k/mm3 (150-375); Red Blood Count 4.25 M/mm3 (4.2-5.4); Red Cell Distribution Width 14.8 % (11.5-14.5); White Blood Count 18.4 K/mm3 (4.5-10.0)
[2025-02-08 06:09] LABS: Anion Gap 12 mmol/L (4-12); Blood Urea Nitrogen 11 mg/dL (7-17); Calcium 8.3 mg/dL (8.4-10.2); Carbon Dioxide 22 mmol/L (22-30); Chloride 99 mmol/L (98-107); Estimated CRCL calculation 64 ml/min; Estimated Glomerular Filt Rate > 60; Glucose 178 mg/dL (65-110); Potassium 3.4 mmol/L (3.4-5.0); Sodium 133 mmol/L (137-145)
[2025-02-08] MEDS: LEVOTHYROXINE SODIUM 100 MCG TABLET 200 MCG PO (06:22)
[2025-02-08] MEDS: ACETAMINOPHEN 325 MG TABLET 650 MG PO ×2 (06:22→12:16)
[2025-02-08 07:15] VITALS: BP 196/61; PULSE 74; RESP 16; TEMP 37.1; O2SAT 97
[2025-02-08] MEDS: oxyCODONE/ACETAMINOPHEN (*CRX) 10-325 MG TABLET 1 TAB PO (08:01)
[2025-02-08 08:30] VITALS: O2SAT 98
[2025-02-08 08:32] VITALS: PULSE 98
[2025-02-08] MEDS: SENNA/DOCUSATE SODIUM TABLET 2 TAB PO (08:32)
[2025-02-08] MEDS: AMIODARONE HCL 100 MG TABLET PO (08:32)
[2025-02-08] MEDS: ASPIRIN 81 MG ENTERIC TABLET PO (08:32)
[2025-02-08] MEDS: VALSARTAN 160 MG TABLET 320 MG PO (08:32)
[2025-02-08] MEDS: oxyBUTYnin CHLORIDE 5 MG TABLET PO (08:32)
[2025-02-08 08:33] VITALS: PULSE 98
[2025-02-08] MEDS: hydrALAZINE HCL 50 MG TABLET 100 MG PO ×2 (08:33→12:16)
[2025-02-08] MEDS: FUROSEMIDE 20 MG TABLET PO (08:33)
[2025-02-08] MEDS: hydroCHLOROthiazide 25 MG TABLET PO (08:33)
[2025-02-08] MEDS: PANTOPRAZOLE 40 MG TABLET PO (08:33)
[2025-02-08] MEDS: METOPROLOL SUCCINATE EXT REL 12.5 MG TABCR PO (08:33)
[2025-02-08] MEDS: GABAPENTIN 100 MG CAPSULE PO (08:33)
[2025-02-08] MEDS: polyethylene glycoL 3350 17 GM POWD.PACK PO (08:33)
[2025-02-08] MEDS: EZETIMIBE 10 MG TABLET PO (08:33)
[2025-02-08 11:15] VITALS: BP 185/60; PULSE 71; RESP 16; TEMP 36.8; O2SAT 100
== END 2025-02-08 13:10 | disposition home or self-care (01) ==
LOC: ANHSURGERY 10:41 → ANH3MEDSUR 17:35
PROVIDERS: Physician Assistant Surgical; PCP Internal Medicine Infectious Disease; Visit Provider Orthopaedic Surgery
PROC: (CPT 23472; principal; 2025-02-07 12:00)
DX: S42.202P Unspecified fracture of upper end of left humerus, subsequent encounter for fracture with malunion (principal); X58.XXXD Exposure to other specified factors, subsequent encounter; I11.0 Hypertensive heart disease with heart failure; I50.9 Heart failure, unspecified; I48.91 Unspecified atrial fibrillation; G47.30 Sleep apnea, unspecified; Z79.01 Long term (current) use of anticoagulants
CPT/HCPCS: 23472; 36415; 73030; 80048; 85025; 86850; 86900; 86901; 97110; 97161; 97165; 97535; 99199; A4565; A9270; C1776; J0171; J0690; J1100; J1171; J1885; J2003; J2270; J2405; J2704; J2795; J3010; J3370; J7030; J7120

== ENCOUNTER 2025-08-04 10:00 | Outpatient (CLI) | payer MEDICARE, SELFPAY ==
--- NOTE | ~2025-08-04 | MR_ITS ---
EXAMINATION: MR cervical spine wo con DATE: 08/04/2025 10:34 INDICATION: Radiculopathy, cervical region. TECHNIQUE: Magnetic resonance imaging (MRI) of the cervical spine was performed without intravenous contrast. COMPARISON: None FINDINGS: Alignment is normal. Vertebral body heights are normal. There is mildly decreased disc height at C3-C4 and C4-C5 and severely decreased disc height at C5-C6. The spinal cord signal intensity is normal. The following disc levels are specifically discussed: C2-C3: There is a central protrusion. There is no uncovertebral joint osteoarthritis. There is severe right and mild left facet joint osteoarthritis. There is mild right neural foraminal stenosis. There is no central canal stenosis. C3-C4: There is a central extrusion. There is moderate bilateral uncovertebral joint osteoarthritis. There is severe bilateral facet joint osteoarthritis. There is mild bilateral neural foraminal stenosis. There is mild central canal stenosis. C4-C5: There is a central protrusion. There is mild right uncovertebral joint osteoarthritis. There is severe right and mild left facet joint osteoarthritis. There is mild right neural foraminal stenosis. There is mild central canal stenosis. C5-C6: The disc is bulging. There is severe bilateral uncovertebral joint osteoarthritis. There is moderate right and severe left facet joint osteoarthritis. There is mild right and severe left neural foraminal stenosis. There is mild central canal stenosis. C6-C7: The disc does not extend beyond the endplate margin. There is no uncovertebral joint osteoarthritis. There is severe bilateral facet joint osteoarthritis. There is mild bilateral neural foraminal stenosis. There is no central canal stenosis. C7-T1: There is a central extrusion. There is no uncovertebral joint osteoarthritis. There is severe bilateral facet joint osteoarthritis. There is mild bilateral neural foraminal stenosis. There is mild central canal stenosis. IMPRESSION: 1. Severe cervical spondylosis. Reviewed, dictated and finalized at location E.
== END 2025-08-04 10:01 | disposition home or self-care (01) ==
LOC: MICIMG 10:01
PROVIDERS: PCP Internal Medicine Infectious Disease; Visit Provider Orthopaedic Surgery
DX: M47.22 Other spondylosis with radiculopathy, cervical region (principal)
CPT/HCPCS: 72141